=== PATIENT | male | born 1965 | race Caucasian/White ===

== ENCOUNTER 2018-10-04 23:33 | Emergency (ER) | payer MEDICAID, SELFPAY ==
[2018-10-04 23:34] VITALS: BP 162/87; PULSE 93; RESP 16; TEMP 36.1; O2SAT 96; BMI 44.3
--- NOTE | 2018-10-05 00:24 | ED.VISSUMM ---
- ER Visit Summary Date of Service: 10/05/18 Chief Complaint: rash History of Present Illness: The patient is a 52 M for rash for one month all over body. Patient states he has the rash on his arms, legs, back, chest and abdomen that itches and mahoney. He has been using an mpeb-bmd-khpbjju ointment on the rash that helps when the rash is moist, but symptoms returned when the rash dries up. 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 He denies any recent travel or change in hygiene products. He denies any fever, chest pain, shortness of breath, abdominal pain, nausea or vomiting, eye pain, mouth ulcerations, dysuria or penile discharge. Patient does not have a primary care doctor and has not had the rash evaluated before. Physical Examination: Vital signs: afebrile, hemodynamically stable, no hypoxia on room air General: well nourished, well developed, in no distress Skin: warm, dry, no pallor, diffuse erythematous plaques of various sizes with dry scaling scattered on the extremities, torso and back. Most prominent are on the legs, with lesions around the pattern of the superior sock margin, and prominent on extensor surfaces. No palmar or sole involvement. Rash has a psoriatic appearance HEENT: normocephalic and atraumatic; PERRL, EOMI, moist mucous membranes without lesions his Cardiovascular: regular rate and rhythm without murmurs, no peripheral edema, 2+ pulses all distal extremities Respiratory: No increased work of breathing, lungs are clear to auscultation bilaterally, no rales, rhonchi or wheezing Abdominal: Abdomen is soft, nontender with normoactive bowel sounds, no guarding or rebound, no masses MSK: Moves all extremities, no deformities, normal strength Neuro: Awake and alert, oriented ?4. No facial droop, sensation and motor function intact and symmetric Test Results: [] Emergency Department Course and Treatment: Patient's rash appears consistent with psoriasis. The pattern following the upper borders of his socks has a psoriatic appearance, but the pattern related to his socks also makes a contact or irritant dermatitis on the differential. Patient was started on prednisone taper and is to use antihistamines to see if that helps with the pruritus. Patient was given referral to dermatology. He was instructed to keep the lesions moist with moisturizer or Vaseline. He has no findings that would be concerning for Colin-Ramin syndrome. patient agreed with this plan and was discharged home. Treatment Plan: [] Disposition: [] Impression: Psoriatic rash This note was generated with [employer] dictation software. It may contain incorrect words, spelling, and punctuation that were not noted in review of the chart prior to signing ED Disposition - Plan for ED Patient: Disposition: Home or Assisted Living Chief Complaint: Rash Instructions: ED Dermatitis Non Specific Rash, ED Psoriasis Prescriptions: RX: Prednisone 10 mg PO DAILY #63 tab Referrals: Holland Matt MD [CONSULTING PHYSICIAN] - As soon as possible Doctor,Your [STAFF PHYSICIAN] - As soon as possible Additional Instructions: Please follow-up with your family doctor as soon as possible for another evaluation of your rash. 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 You may try Benadryl or another iaar-alm-kwhsaln antihistamine to see if that helps with itching. Use Vaseline on the rash to keep them moist and soothed. Take the prednisone to help with any inflammation. Follow-up with dermatology as soon as possible for further evaluation of your rash. If you have any worsening of your condition or any new concerning symptoms, please return immediately to the emergency department for another evaluation.
--- NOTE | 2018-10-05 00:24 | ED.DEP ---
ED Disposition - Plan for ED Patient: Disposition: Home or Assisted Living Chief Complaint: Rash Instructions: ED Psoriasis, ED Dermatitis Non Specific Rash Prescriptions: Prednisone 10 mg PO DAILY #63 tab Referrals: Doctor,Your [STAFF PHYSICIAN] - As soon as possible Holland Matt MD [CONSULTING PHYSICIAN] - As soon as possible Additional Instructions: Please follow-up with your family doctor as soon as possible for another evaluation of your rash. 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 You may try Benadryl or another zlzg-lbu-ebyjgys antihistamine to see if that helps with itching. Use Vaseline on the rash to keep them moist and soothed. Take the prednisone to help with any inflammation. Follow-up with dermatology as soon as possible for further evaluation of your rash. If you have any worsening of your condition or any new concerning symptoms, please return immediately to the emergency department for another evaluation.
--- NOTE | 2018-10-05 00:27 | DCINST.ED_ITS ---
ED Disposition - Plan for ED Patient: Disposition: Home or Assisted Living Chief Complaint: Rash Instructions: ED Psoriasis, ED Dermatitis Non Specific Rash Prescriptions: Prednisone 10 mg PO DAILY #63 tab Referrals: Doctor,Your [STAFF PHYSICIAN] - As soon as possible Holland Matt MD [CONSULTING PHYSICIAN] - As soon as possible Additional Instructions: Please follow-up with your family doctor as soon as possible for another evaluation of your rash. 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 You may try Benadryl or another shob-ern-vuuuipo antihistamine to see if that helps with itching. Use Vaseline on the rash to keep them moist and soothed. Take the prednisone to help with any inflammation. Follow-up with dermatology as soon as possible for further evaluation of your rash. If you have any worsening of your condition or any new concerning symptoms, please return immediately to the emergency department for another evaluation.
[2018-10-05] MEDS: predniSONE 20 MG Tablet 60 MG PO (00:50)
[2018-10-05 00:54] VITALS: PULSE 92; RESP 16; O2SAT 99
== END 2018-10-05 00:54 | disposition home or self-care (01) ==
PROVIDERS: Emergency Provider Emergency Medicine
DX: L40.9 Psoriasis, unspecified (principal); E66.9 Obesity, unspecified; Z79.899 Other long term (current) drug therapy
CPT/HCPCS: 99283

== ENCOUNTER 2018-10-16 20:39 | Emergency (ER) | payer MEDICAID, SELFPAY ==
[2018-10-16 20:39] VITALS: BP 138/94; PULSE 98; RESP 18; TEMP 36.2; O2SAT 96; BMI 46.4
--- NOTE | 2018-10-16 20:52 | ED.VISSUMM ---
- ER Visit Summary Date of Service: 10/16/18 Chief Complaint: Pruritic red scaly rash History of Present Illness: The patient is a 52 M who presents because the rash has not gotten better. He states it is gotten worse. He was seen in the emergency department October 05 and diagnosed with psoriatic rash. He denies myalgias arthralgias. No joint swelling. He denies fever chills. He denies cardiac respiratory symptoms. Denies GI symptoms. Physical Examination: Vital signs noted and blood pressure is elevated 138/94. BMI is 46.5. HEENT is unremarkable. Heart is regular. Lungs clear auscultation. Abdomen soft nontender. Patient has a erythematous scaly plaque like rash that is extensive. Test Results: None Emergency Department Course and Treatment: Patient was informed he has psoriasis and it is quite extensive. 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 He states he was told that they do not take his insurance. Since this is not an emergency he was instructed to call his insurance carrier to help find him a fulling mill operator that is on his plan. He was told medications that he would need to be placed on ED monitor closely and not appropriate to be started from the emergency department Treatment Plan: Contact insurance carrier for dermatology referral Disposition: Discharged home Impression: Psoriasis This note was generated with [employer] dictation software. It may contain incorrect words, spelling, and punctuation that were not noted in review of the chart prior to signing ED Disposition - Plan for ED Patient: Disposition: Home or Assisted Living Chief Complaint: Rash Instructions: What is Psoriasis?, ED Psoriasis Referrals: Care Physician,No Primary [Primary Care Provider] - Additional Instructions: You need to contact your insurance carrier and ask for them to help find a fulling mill operator that will see you and is on your insurance plan since you have been unsuccessful without their assistance.
--- NOTE | 2018-10-16 20:55 | ED.DCSUM_ITS ---
- ER Visit Summary Date of Service: 10/16/18 Chief Complaint: Pruritic red scaly rash History of Present Illness: The patient is a 52 M who presents because the rash has not gotten better. He states it is gotten worse. He was seen in the emergency department October 05 and diagnosed with psoriatic rash. He denies myalgias arthralgias. No joint swelling. He denies fever chills. He denies cardiac respiratory symptoms. Denies GI symptoms. Physical Examination: Vital signs noted and blood pressure is elevated 138/94. BMI is 46.5. HEENT is unremarkable. Heart is regular. Lungs clear auscultation. Abdomen soft nontender. Patient has a erythematous scaly plaque like rash that is extensive. Test Results: None Emergency Department Course and Treatment: Patient was informed he has psoriasis and it is quite extensive. He needs to follow-up with wing commander. He states he was told that they do not take his insurance. Since this is not an emergency he was instructed to call his insurance carrier to help find him a wing commander that is on his plan. He was told medications that he would need to be placed on ED monitor closely and not appropriate to be started from the emergency department Treatment Plan: Contact insurance carrier for dermatology referral Disposition: Discharged home Impression: Psoriasis This note was generated with [employer] dictation software. It may contain incorrect words, spelling, and punctuation that were not noted in review of the chart prior to signing ED Disposition - Plan for ED Patient: Disposition: Home or Assisted Living Chief Complaint: Rash Instructions: What is Psoriasis?, ED Psoriasis Referrals: Care Physician,No Primary [Primary Care Provider] - Additional Instructions: You need to contact your insurance carrier and ask for them to help find a wing commander that will see you and is on your insurance plan since you have been unsuccessful without their assistance.
--- NOTE | 2018-10-16 20:55 | ED.VISSUMM ---
- ER Visit Summary Date of Service: 10/16/18 Chief Complaint: [] History of Present Illness: The patient is a 52 M [] Physical Examination: [] Test Results: [] Emergency Department Course and Treatment: [] Treatment Plan: [] Disposition: [] Impression: [] This note was generated with [employer] dictation software. It may contain incorrect words, spelling, and punctuation that were not noted in review of the chart prior to signing ED Disposition - Plan for ED Patient: Disposition: Home or Assisted Living Chief Complaint: Rash Instructions: What is Psoriasis?, ED Psoriasis Prescriptions: Hydroxyzine HCl 25 mg PO Q8H PRN PRN #60 tab PRN Reason: Itching Referrals: Care Physician,No Primary [Primary Care Provider] - Additional Instructions: You need to contact your insurance carrier and ask for them to help find a interlocking and signal mechanic that will see you and is on your insurance plan since you have been unsuccessful without their assistance.
[2018-10-16 21:06] VITALS: RESP 18
== END 2018-10-16 21:09 | disposition home or self-care (01) ==
LOC: ED 20:59
PROVIDERS: Emergency Provider Emergency Medicine
DX: L40.9 Psoriasis, unspecified (principal); E66.9 Obesity, unspecified; Z68.42 Body mass index [BMI] 45.0-49.9, adult
CPT/HCPCS: 99282

== ENCOUNTER 2019-01-10 17:40 | Observation (INO) | payer MEDICAID, SELFPAY ==
[2019-01-10] VITALS (7 sets, daily range): BP systolic 132–168; BP diastolic 88–93; PULSE 84–105; RESP 17–20; TEMP 36.6–36.8; O2SAT 92–96; BMI 46.0; BMI 46.1; BMI 46.2
--- NOTE | 2019-01-10 17:55 | RAD_ITS ---
STUDY: X-RAY CHEST REASON FOR EXAM: Male, 53 years old. Cough TECHNIQUE: Single frontal view COMPARISON: None. FINDINGS: The lungs are expanded. Mild right basilar interstitial prominence medially. Normal size heart. Normal mediastinum and mo. Normal visualized pulmonary arteries. Normal visualized aortic arch and descending thoracic aorta. Degenerative changes of the thoracic spine. Normal visualized ribs, clavicles, and shoulders. There is no demonstrated abnormality of the visualized soft tissue structures of the upper abdomen. RAD/Chest 1 View (Portable) IMPRESSION: Mild right basilar medial interstitial prominence. Electronically Signed: Haroldo Aragon DO at 18:31 EST Tel [phone], Service support ,
--- NOTE | 2019-01-10 17:59 | ED.DCSUM_ITS ---
- ER Visit Summary Date of Service: 01/10/19 Chief Complaint: Flulike symptoms History of Present Illness: The patient is a 53 M presenting with cough, body aches, shortness of breath. Patient states this started 4 days ago. He went to [facility]. He was diagnosed with influenza A. He states he was started on steroids. He has finished course of steroids. He complains of diffuse myalgias, shortness of breath, cough. He has had subjective fevers. He has chest pain only when he coughs. He went to his primary care physician today who sent him to the ED due to low oxygen saturation in the office. Physical Examination: Vitals are stable. Patient is afebrile. Pulse ox 95% on room air. Alert no acute distress. HEENT exam is unremarkable. Neck is supple. Lungs are wheezing bilaterally. Heart is regular rate and rhythm. Abdomen is soft nontender nondistended. Extremities are unremarkable. Skin is warm and dry. No focal neurologic deficit. Remainder of exam is unremarkable. Emergency Department Course and Treatment: Patient is given albuterol, Atrovent aerosols. He was given IV fluids, Toradol. Ambulatory pulse ox is 86% on room air. Chest x-ray shows mild right basilar medial interstitial prominence. CBC, chemistries unremarkable. Troponin 0.023. Discussed with the hospitalist for admission. Disposition: Admission Impression: Influenza, hypoxia This note was generated with [employer] dictation software. It may contain incorrect words, spelling, and punctuation that were not noted in review of the chart prior to signing ED Disposition - Plan for ED Patient: Referrals: Care Physician,No Primary [Primary Care Provider] -
[2019-01-10] MEDS: Albuterol 2.5 MG/3 ML VIAL.NEB. INHALATION ×2 (18:11→18:52)
[2019-01-10] MEDS: Ipratropium/Albuterol Sulfate 3 ML AMPUL.NEB INHALATION (18:11)
[2019-01-10] MEDS: 0.9% Normal Saline 1,000 ML 1000 ML IV (18:30)
[2019-01-10] MEDS: Ketorolac 30 MG/ML Syringe IV (18:30)
[2019-01-10 19:26] LABS: Absolute Lymphocyte Count 2.92 X10^3/ul (0.83-4.51); Absolute Neutrophil Count 2.7 X10^3/uL (2.0-7.7); Basophil# 0.01 X10^3/uL; Basophil% 0.2 % (0-1); Eosinophil# 0.01 X10^3/uL; Eosinophils% 0.2 % (0-5); Hemoglobin 14.8 g/dl (13.0-16.5); Lymphocyte # 2.92 X10^3/ul (4.0); Mean Corp Hgb Conc 32.2 g/gl (32-36); Mean Corpuscular Hgb 30.4 pg (27.0-32.0); Mean Corpuscular Volume 94.5 fL (80-94); Mean Platelet Vol. 11.2 fl (6.2-12.0); Monocyte# 0.97 X10^3/uL; Monocyte% 14.6 % (0-10); Neutrophil # 2.73 X10^3/uL (2.7-7.7); POSITIVE COUNT NO; POSITIVE DIFFERENTIAL NO; POSITIVE MORPHOLOGY NO; Platelet Count 160 K/mm3 (150-450); RBC Distribution Width CV 13.6 % (11.6-14.6); RBC Distribution Width SD 46.8 fl (35.1-43.9); Red Blood Count 4.87 M/mm3 (4.6-6.2); White Blood Count 6.6 K/mm3 (4.4-11.0)
[2019-01-10 19:38] LABS: Anion Gap 9 (5-15); BUN 19 mg/dL (7-18); BUN/Creat Ratio 16.5 RATIO (10-20); Calcium,Total 8.1 mg/dL (8.5-10.1); Chloride 105 mmol/L (98-107); Creatinine, Serum 1.15 mg/dL (0.70-1.30); EST Glomerular Filtration Rate 70 mL/min (>60); Est Glom Filt Rate - Afr Amer 85 mL/min (>60); Estimated Creatinine Clearance 73.43 ml/min; Glucose 106 mg/dL (74-106); Potassium 3.5 mmol/L (3.5-5.1); Sodium Level 144 mmol/L (136-145)
--- NOTE | 2019-01-10 20:45 | PCM.HP.STD ---
Problem List (1) COPD with acute exacerbation Status: Acute (2) Hypertensive urgency Status: Acute (3) Influenza A Status: Acute History of Present Illness Date of Admission: 01/10/19 Chief Complaint: shortness of breath. The patient is a 53 year old M presents with increasing dyspnea on exertion. Patient has chronic dyspnea on exertion but has been worse over the past several days. Patient was seen at an outside hospital and was diagnosed with influenza A as well as exacerbation of COPD. Received albuterol as well as prednisone. Patient presented to his doctor's office for follow-up and was noted to be hypoxic in the 80s. Patient was directed to the emergency room at [facility] for further evaluation. Patient presented at 86% and was put on oxygen. He received albuterol, Toradol and saline. He states that he is breathing better after the breathing treatments. Patient states that he was diagnosed with COPD approximately 26 years ago and he stopped smoking at that time. Has not followed up with pulmonology. [] Past Medical History Medical History: Medical History (Last Updated 01/10/19 @ 20:47 by Medardo Talbert DO) COPD (chronic obstructive pulmonary disease) J44.9 HTN (hypertension) I10 Allergies Penicillins Allergy (Verified 10/16/18 20:39) Unknown Home Medications: Ambulatory Orders Medication Instructions Recorded Acetaminophen [Tylenol Extra 1,000 mg PO PRN PRN 01/10/19 Strength] Albuterol Inhaler [Ventolin Hfa 2 puff INHALATION Q4H PRN PRN 01/10/19 (SP)] Lisinopril/Hydrochlorothiazide 1 each PO DAILY 01/10/19 [Lisinopril-Hctz 10-12.5 mg Tab] Psychiatric History: No pertinent psych hx Smoking Status: Former smoker Tobacco Use: Non-smoker Alcohol: Rare Drugs: None - *Family History Maternal Family History: Family History (Last Updated 01/10/19 @ 20:48 by Medardo Talbert DO) Other COPD (chronic obstructive pulmonary disease) Review of Systems Constitutional: Denies: Anorexia, Chills, Fever Eyes: Denies: Blurred vision, Double vision HEENT: Denies: Head Aches, Sinus Congestion, Sinus Drainage Cardiovascular: Reports: Chest Pain - with cough. Denies: Palpitations Respiratory: Reports: Cough, Shortness of Breath, Shortness of breath upon exertion, Sputum production - cream colored. Gastrointestinal: Denies: Abdominal Pain, Nausea, Vomiting Genitourinary: Denies: Dysuria Musculoskeletal: Denies: Joint Pain, Joint Tenderness Skin: Denies: Dryness, Jaundice Neurological: Denies: Numbness, Tingling, Focal weakness Psychiatric: Denies: Anxiety, Depression Endocrine: Denies: Change in Body Habitus, Heat/ Cold Intolerance Hematologic/ Lymphatic: Denies: Easy Bruising, Easy Bleeding, Hx of blood clot Comment: A 10 point review of systems were negative except as mentioned in the history of present illness and the other review of systems. VTE Information - Inpt Only VTE Present on Admission: No VTE Mechan Device Prophylaxis: None VTE Pharm Prophylaxis ordered?: Yes Patient Problems: Active and Suspected Problems (Last Updated 01/10/19 @ 20:47 by Medardo Talbert DO) COPD with acute exacerbation (Acute) Hypertensive urgency (Acute) Influenza A (Acute) - Physical Exam General: Alert, Cooperative, No apparent distress HEENT: Atraumatic, Normocephalic Oral: Moist Mucosa, No Gingival or Mucosal Lesions/ Ulcerations Neck: No Nodes, Thyroid Normal Size and Texture Lungs: No rhonchi, No wheeze, Diminished Cardiovascular: Regular rate, Regular Rhythm, Normal S1, Normal S2 Abdomen: Bowel Sounds Present, Soft, Non Tender, Non-Distended, No Hepato-splenomegaly, Obese Extremities: No edema, No Calf Tenderness Skin: No rashes, No breakdown Musculoskeletal: No Tenderness to Palpation of Joints or Extremities, No Muscle Wasting Neurological: Coordination normal, Gait narrow based and stable Psych/Mental Status: Normal Affect, Appropriate Vital Signs Temp Pulse Resp BP Pulse Ox 36.7 C 103 H 20 H 168/93 H 93 01/10/19 19:09 01/10/19 19:09 01/10/19 19:09 01/10/19 19:09 01/10/19 19:09 Oxygen Flow Rate (L/min) 2 Oxygen Delivery Method Nasal Cannula Weight: 141.521 kg Body Mass Index (BMI) 46.0 Laboratory Tests Past 24 Hrs 01/10/19 01/10/19 19:15 19:15 WBC 6.6 RBC 4.87 Hgb 14.8 Hct 46.0 MCV 94.5 H MCH 30.4 MCHC 32.2 RDW 13.6 RDW Differential 46.8 H Plt Count 160 MPV 11.2 Immature Gran % (Auto) 0.000 Neut % (Auto) 41.0 L Lymph % (Auto) 44.0 H Keith % (Auto) 14.6 H Eos % (Auto) 0.2 Baso % (Auto) 0.2 Absolute Neuts (auto) 2.7 Absolute Lymphs (auto) 2.92 Total Counted Not Reportable Sodium 144 Potassium 3.5 Chloride 105 Carbon Dioxide 30.0 Anion Gap 9 BUN 19 H Creatinine 1.15 Estim Creat Clear Calc 73.43 Est GFR (MDRD) Af Amer 85 Est GFR (MDRD) Non-Af 70 BUN/Creatinine Ratio 16.5 Glucose 106 Calcium 8.1 L Troponin I 0.023 Chest x-ray reviewed and shows no acute process but does show slight flattening of the diaphragms. Assessment/Plan All Active Problems (Last Updated 01/10/19 @ 20:47 by Medardo Talbert DO) COPD with acute exacerbation (Acute) Hypertensive urgency (Acute) Influenza A (Acute) 1. Acute exacerbation of COPD: Patient states that he was diagnosed with COPD proximate 26 years ago. Seems rather young when he was 19 years old. But may be asthma as well. Plan is for steroids and bronchodilators. This may been exacerbated due to the patient's recent influenza diagnosis. Recommend patient follow-up with pulmonology as outpatient. Patient will require an ambulatory pulse ox prior to discharge 2. Hypertensive urgency: Blood pressures in the 190s. Patient will continue with his lisinopril/HCTZ but also have clonidine as needed for systolic blood pressure greater than 180. 3. Influenza A: At outside hospital. Was not started on Tamiflu. Given that it has been greater than 96 hours since the diagnosis, no indication for Tamiflu at this time other than supportive management. 4. DVT prophylaxis with a low back rate heparin Code Visit OBSV E&M: 87082 Initial observation care L3
[2019-01-10] MEDS: 0.9% NaCl Peripheral Flush Adult/Peds IV (22:56)
[2019-01-10] MEDS: guaiFENesin 1,200 MG Tablet 1200 MG PO (22:56)
[2019-01-10] MEDS: 0.9% Normal Saline 1,000 ML 150 ML IV (23:00)
[2019-01-11] VITALS (19 sets, daily range): BP systolic 102–152; BP diastolic 58–85; PULSE 86–104; RESP 16–26; TEMP 36.7–37.2; O2SAT 89–96
[2019-01-11] MEDS: Ipratropium/Albuterol Sulfate 3 ML AMPUL.NEB INHALATION ×7 (00:17→22:55)
[2019-01-11] MEDS: 0.9% NaCl Peripheral Flush Adult/Peds IV ×3 (05:32→21:12)
[2019-01-11 06:44] LABS: Anion Gap 11 (5-15); BUN 18 mg/dL (7-18); BUN/Creat Ratio 18.9 RATIO (10-20); Chloride 106 mmol/L (98-107); Creatinine, Serum 0.95 mg/dL (0.70-1.30); EST Glomerular Filtration Rate 87 mL/min (>60); Est Glom Filt Rate - Afr Amer 106 mL/min (>60); Estimated Creatinine Clearance 88.89 ml/min; Glucose 142 mg/dL (74-106); Sodium Level 141 mmol/L (136-145)
[2019-01-11 07:18] LABS: Absolute Neutrophil Count 2.6 X10^3/uL (2.0-7.7); Basophil# 0.01 X10^3/uL; Basophil% 0.3 % (0-1); Hemoglobin 14.6 g/dl (13.0-16.5); Mean Corp Hgb Conc 33.2 g/gl (32-36); Mean Corpuscular Hgb 31.5 pg (27.0-32.0); Mean Corpuscular Volume 94.8 fL (80-94); Mean Platelet Vol. 11.8 fl (6.2-12.0); Neutrophil # 2.62 X10^3/uL (2.7-7.7); Neutrophil % 78.4 % (47-70); Platelet Count 164 K/mm3 (150-450); RBC Distribution Width CV 13.4 % (11.6-14.6); RBC Distribution Width SD 45.1 fl (35.1-43.9); Red Blood Count 4.64 M/mm3 (4.6-6.2); White Blood Count 3.3 K/mm3 (4.4-11.0)
[2019-01-11 07:29] LABS: Differential Indicated SCAN CRITERIA MET; POSITIVE COUNT NO; POSITIVE DIFFERENTIAL YES; POSITIVE MORPHOLOGY NO
--- NOTE | 2019-01-11 08:24 | PCM.PROGNOTE ---
Patient Problems: Active and Suspected Problems (Last Updated 01/10/19 @ 20:47 by Medardo Talbert DO) COPD with acute exacerbation (Acute) Hypertensive urgency (Acute) Influenza A (Acute) Subjective: The patient is a 53-year-old male with a past medical history of COPD tobacco dependence in remission (quit > 20 years ago) and hypertension who presented to the emergency department at [facility] on 01/10/2019 complaining of shortness of breath with exertion. He had been seen at an outside facility and was diagnosed with influenza A and exacerbation of COPD. He was given albuterol and prednisone and sent home. He had been seen at his primary care physician's office prior to being sent to the emergency room his pulse ox on room air was in the 80s. The pulse ox with ambulation in the emergency room was 86% on room air. Vital signs of presentation to the emergency room were temperature 98.2, pulse rate 97, blood pressure 132/88, respiratory rate 17-20. CBC showed a white blood cell count of 6.6, hemoglobin of 14.8 and platelets of 160,000. BMP showed creatinine of 1.15 with a BUN of 19. Chest x-ray showed interstitial prominence in the right lower lobe medially. On physical examination by the ER physician the patient had bilateral wheezing and he was treated with albuterol and DuoNeb aerosols. At the time he was seen by the hospitalist he had diminished breath sounds but no wheezing, no rales. He was admitted to the hospital and placed on scheduled aerosolized bronchodilators, intravenous steroids and guaifenesin. All events of the past 24 hours been reviewed. Febrile since admission Vital signs are stable Relating in the room and after taking a shower the pulse ox was 90-93% but the patient was tachypneic. He states this is his baseline. He has never had pulmonary function test and does not see a home economist. He quit smoking 25 years ago. Tells me that he gets chest tightness across the anterior chest when he is walking and this is associated with shortness of breath, diaphoresis and sometimes with nausea. He sits down for a few minutes and it goes away. He had a stress test at [facility] in 2014 and this was a chemical nuclear stress test that was negative for ischemia. There is a positive family history of coronary artery disease in his grandparents. Both his parents of cancer. - Physical Exam General: Alert, Oriented x3, Cooperative, No apparent distress - Sitting in a chair, Well developed, Well nourished HEENT: Atraumatic, PERRLA, EOMI, Normocephalic Oral: Moist Mucosa Neck: Supple, No JVD, Trachea Midline Lungs: No rhonchi, No wheeze, No rales, Diminished - Very Diminished throughout. Not tachypneic at rest, no conversational dyspnea, no accessory muscle use Cardiovascular: Regular rate, Regular Rhythm, Normal S1, Normal S2, No murmurs, No rub noted, No Gallop Abdomen: Bowel Sounds Present, Soft, Non Tender, Non-Distended, Obese Extremities: No clubbing, No edema Skin: No rashes Neurological: Cranial nerves II-XII grossly intact, Neuro grossly intact Vital Signs Temp Pulse Resp BP Pulse Ox 98.8 F 88 18 152/85 H 94 01/11/19 04:10 01/11/19 06:50 01/11/19 06:50 01/11/19 04:10 01/11/19 06:50 Oxygen Flow Rate (L/min) 1 Oxygen Delivery Method Nasal Cannula Weight: 312 lb 9 oz Body Mass Index (BMI) 46.1 Intake and Output for Last 24 Hours 01/09/19 01/10/19 01/11/19 23:59 23:59 23:59 Intake Total 1472 / 1472 Output Total 475 / 475 Balance 997 / 997 Laboratory Tests Past 24 Hrs 01/10/19 01/10/19 01/11/19 19:15 19:15 05:50 WBC 6.6 RBC 4.87 Hgb 14.8 Hct 46.0 MCV 94.5 H MCH 30.4 MCHC 32.2 RDW 13.6 RDW Differential 46.8 H Plt Count 160 MPV 11.2 Immature Gran % (Auto) 0.000 Neut % (Auto) 41.0 L Lymph % (Auto) 44.0 H [place] % (Auto) 14.6 H Eos % (Auto) 0.2 Baso % (Auto) 0.2 Absolute Neuts (auto) 2.7 Absolute Lymphs (auto) 2.92 Total Counted Not Reportable Diff Path Review Sodium 144 141 Potassium 3.5 4.0 Chloride 105 106 Carbon Dioxide 30.0 24.0 Anion Gap 9 11 BUN 19 H 18 Creatinine 1.15 0.95 Estim Creat Clear Calc 73.43 88.89 Est GFR (MDRD) Af Amer 85 106 Est GFR (MDRD) Non-Af 70 87 BUN/Creatinine Ratio 16.5 18.9 Glucose 106 142 H Calcium 8.1 L 8.0 L Troponin I 0.023 01/11/19 05:50 WBC 3.3 L RBC 4.64 Hgb 14.6 Hct 44.0 MCV 94.8 H MCH 31.5 MCHC 33.2 RDW 13.4 RDW Differential 45.1 H Plt Count 164 MPV 11.8 Immature Gran % (Auto) 0.300 Neut % (Auto) 78.4 H Lymph % (Auto) 15.0 L [place] % (Auto) 6.0 Eos % (Auto) 0.0 Baso % (Auto) 0.3 Absolute Neuts (auto) 2.6 Absolute Lymphs (auto) 0.50 L Total Counted Not Reportable Diff Path Review May foll Sodium Potassium Chloride Carbon Dioxide Anion Gap BUN Creatinine Estim Creat Clear Calc Est GFR (MDRD) Af Amer Est GFR (MDRD) Non-Af BUN/Creatinine Ratio Glucose Calcium Troponin I Medical Necessity - Tobacco Use Smoking Status: Former smoker Tobacco Use: Non-smoker Assessment/Plan All Active Problems (Last Updated 01/10/19 @ 20:47 by Medardo Talbert DO) COPD with acute exacerbation (Acute) Hypertensive urgency (Acute) Influenza A (Acute) impressions 1. Acute exacerbation of COPD secondary to recently diagnosed influenza A 2. Hypertensive urgency-improved 3. morbid obesity 4. very remote smoking hx. 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 Sleep disordered breathing with loud snoring, daytime somnolence, restless leg, forgetfulness 6. Leukopenia-suspect secondary to influenza Transition to prednisone in the a.m. Chemical nuclear stress test in the a.m. Ambulatory pulse ox in the a.m. Possible discharge with a nebulizer and aerosol solution versus inhaler therapy Follow-up with pulmonary in 2 weeks to schedule PFTs and an outpatient sleep study Code Visit OBSV E&M: 16783 Subsequent observation care L2
--- NOTE | 2019-01-11 08:30 | RAD_ITS ---
STUDY: X-RAY CHEST REASON FOR EXAM: Male, 53 years old. Shortness of breath. Questionable right lower lobe infiltrate. TECHNIQUE: PA and lateral views of the chest. COMPARISON: Comparison is made with prior study dated January 10, 2019. FINDINGS: Minimal increased markings at the left lung base suggestive of left basilar atelectasis. The right lung is clear. There is no demonstrated pleural abnormality. Normal size heart. Normal mediastinum and mo. Normal visualized pulmonary arteries. Normal visualized aortic arch and descending thoracic aorta. There are diffuse degenerative changes of the visualized thoracic spine. Normal visualized ribs, clavicles, and shoulders. There is no demonstrated abnormality of the visualized soft tissue structures of the upper abdomen. RAD/Chest PA and Lateral IMPRESSION: Findings suggest some mild left basilar atelectasis. The right lung is clear. Electronically Signed: Willam Vu, at 13:13 EST , Service support ,
[2019-01-11] MEDS: Lisinopril 10 MG Tablet PO (09:45)
[2019-01-11] MEDS: guaiFENesin 1,200 MG Tablet 1200 MG PO ×2 (09:45→21:11)
[2019-01-11] MEDS: hydroCHLOROthiazide 12.5mg 12.5 MG PO (09:45)
--- NOTE | 2019-01-11 11:30 | CASEMGMT ---
RN CATHIE Face to Face with patient for initial transition planning/care coordination assessment. RN CM introduced self and role at [facility]. Patient sitting in chair, alert and oriented. Patient willing to participate in assessment and is able to answer all questions appropriately. Care providers, pharmacy, and demographics verified. Patient wishes to discharge home, denies need for home health at this time. Patient states he has no further needs or concerns at this time. CM to follow for discharge planning needs that may arise. PCP: Mora Specialists: None Preferred [facility]acy[facility] Insurance: [employer] Prescription Benefit: Yes Living Will/HPOA: None LNOK: daughter Living Arrangements: Patient lives with in 2 floor apartment with 25 steps with railing to enter the apartment. Patient independent at home. Transportation: self/family DME/HHC: Patient denies any DME at home. May benefit from nebulizer and agreeable for [employer] for DME supplies. Disposition Plan: Patient to discharge home with family support and follow-up plans in place. Svitlana SMILEY, RN, CM
[2019-01-11] MEDS: Acetaminophen 325 MG Tablet 650 MG PO (12:59)
[2019-01-11 13:17] LABS: Pathologist Review Reviewed
[2019-01-12] VITALS (10 sets, daily range): BP systolic 126–158; BP diastolic 66–82; PULSE 72–88; RESP 18–20; TEMP 36.7–37.2; O2SAT 91–97
[2019-01-12] MEDS: Ipratropium/Albuterol Sulfate 3 ML AMPUL.NEB INHALATION ×4 (03:51→14:54)
--- NOTE | 2019-01-12 06:00 | EKG12_ITS ---
Test Reason : AM EKG Blood Pressure : / mmHG Vent. Rate : 082 BPM Atrial Rate : 082 BPM P-R Int : 126 ms QRS Dur : 090 ms QT Int : 376 ms P-R-T Axes : 048 042 070 degrees QTc Int : 439 ms Sinus rhythm with marked sinus arrhythmia Otherwise normal ECG When compared with ECG of 25-JUN-2012 10:46, No significant change was found Confirmed by BRYANT BANUELOS, EVELIO ([id number]), loan expeditor MINERVA DANG ([id number]) on 01/15/2019 1:19:05 PM Referred By: SUGAR Confirmed By:EVELIO HURTADO MD
[2019-01-12 06:30] LABS: International Normalized Ratio 1.1; Prothrombin Time (Protime)PT. 13.6 SECONDS (11.7-14.9)
[2019-01-12 06:31] LABS: Partial Thromboplast Time 29.2 Seconds (24.1-36.2)
[2019-01-12 06:32] LABS: Absolute Lymphocyte Count 1.13 X10^3/ul (0.83-4.51); Absolute Neutrophil Count 4.9 X10^3/uL (2.0-7.7); Basophil# 0.03 X10^3/uL; Basophil% 0.4 % (0-1); Hematocrit 44.1 % (40-54); Hemoglobin 14.4 g/dl (13.0-16.5); Lymphocyte # 1.13 X10^3/ul (4.0); Lymphocyte % 16.7 % (19-41); Mean Corp Hgb Conc 32.7 g/gl (32-36); Mean Corpuscular Hgb 30.5 pg (27.0-32.0); Mean Corpuscular Volume 93.4 fL (80-94); Mean Platelet Vol. 11.7 fl (6.2-12.0); Monocyte% 10.3 % (0-10); Neutrophil # 4.91 X10^3/uL (2.7-7.7); Neutrophil % 72.5 % (47-70); Platelet Count 198 K/mm3 (150-450); RBC Distribution Width CV 13.4 % (11.6-14.6); RBC Distribution Width SD 45.9 fl (35.1-43.9); Red Blood Count 4.72 M/mm3 (4.6-6.2); White Blood Count 6.8 K/mm3 (4.4-11.0)
[2019-01-12 06:44] LABS: POSITIVE COUNT NO; POSITIVE DIFFERENTIAL NO; POSITIVE MORPHOLOGY NO
[2019-01-12 06:50] LABS: Anion Gap 8 (5-15); BUN 17 mg/dL (7-18); BUN/Creat Ratio 17.3 RATIO (10-20); Calcium,Total 8.3 mg/dL (8.5-10.1); Chloride 105 mmol/L (98-107); Cholesterol 120 mg/dL (200); Creatinine, Serum 0.98 mg/dL (0.70-1.30); EST Glomerular Filtration Rate 84 mL/min (>60); Est Glom Filt Rate - Afr Amer 102 mL/min (>60); Estimated Creatinine Clearance 86.17 ml/min; Glucose 135 mg/dL (74-106); High Density Lipoprotein 41 mg/dL; Potassium 3.9 mmol/L (3.5-5.1); Sodium Level 139 mmol/L (136-145); Triglycerides 80 mg/dL; Very Low Density Lipoprotein 16 mg/dL (5-40)
[2019-01-12] MEDS: Lisinopril 10 MG Tablet PO (07:27)
[2019-01-12] MEDS: predniSONE 20 MG Tablet 40 MG PO (09:34)
[2019-01-12] MEDS: guaiFENesin 1,200 MG Tablet 1200 MG PO (09:40)
[2019-01-12] MEDS: Acetaminophen 325 MG Tablet 650 MG PO (09:40)
[2019-01-12] MEDS: hydroCHLOROthiazide 12.5mg 12.5 MG PO (09:40)
--- NOTE | 2019-01-12 09:52 | STRESSREP_ITS ---
Stress Test Report Pharmacologic myocardial perfusion stress test. 53-year-old man with a history of chest pain. Stress protocol: Resting EKG demonstrates normal sinus rhythm with a rate of 78 bpm normal intervals are noted resting blood pressure 148/78 mmHg. 0.4 mg of regadenoson was infused per usual protocol followed by rapid intravenous saline flush injection continuous EKG monitoring was performed. The maximum heart rate attained was 110 bpm which was 66% of maximum predicted heart rate the maximum workload was 1 metabolic equivalent. At rest there were no ST or T wave changes noted suggest abnormal flow reserve at peak infusion nonspecific ST-T wave changes were noted with normally the criteria for ischemia. The resting blood pressure 148/78 final blood pressure 152/78. Myocardial perfusion protocol. 15.0 mCi of technetium 99m sestamibi was injected at rest. 0.4 mg of regadenoson was infused per usual protocol peak infusion 45.0 mCi of technetium 99m sestamibi was injected stress images were obtained stress and rest images were reconstructed and compared in the short axis vertical long horizontal long axis. Gated images were also obtained per Perfusion SPECT analysis: Review of the stress images demonstrate normal uptake of tracer noted in all areas of myocardium on the stress and rest images to a similar extent. There a re no areas of reversibility or reduction of perfusion noted to suggest ischemia. The gated ejection fraction is noted to be 52%. Conclusion: Normal pharmacologic myocardial perfusion stress test. Preserved ejection fraction
--- NOTE | 2019-01-12 14:13 | DCINST_ITS ---
- Discharge Diagnoses Current Active Problems: Current Active and Chronic Problems (Last Updated 01/10/19 @ 20:47 by Medardo Talbert DO) COPD with acute exacerbation (Acute) Hypertensive urgency (Acute) Influenza A (Acute) You will use the following diet at home:: No restrictions, Other - It would really help your breathing to lose some weight. Try and stick to 2000 to 2200 calories a day. Your food should be the consistency of: Regular Your liquids should be the consistency of: Regular/Thin Discharge Activity: - - Avoid exposure to any strong smells such as bleach, cleaning products, strong colognes or perfumes, paint fumes and smoke of any kind. Avoid sudden exposure to cold air because this can cause bronchospasm. You may want to cover your mouth when you go outside in the winter. Avoid exposure to anyone who is sick with a cough or sore throat. Return to work on:: 01/21/19 Call your doctor if you observe: Fever of 101 or Higher, Shortness of breath, Dizziness, Fainting spells, Chest pain Instructions: What Are Snoring and Sleep Apnea?, Visiting a Sleep Clinic Additional Instructions: 1. I recommend you stay in the house and get a lot of rest over the next 5-7 days. When you do go back to work always cover your mouth when working around strong cleaning products. 2. You need to get a Flu shot every year since you have chronic lung disease. You should also get a pneumovac shot if you have not had one. 3. You can call the pulmonary office on Monday and ask to schedule an appt for 2 weeks with Ariane so that you can get scheduled for pulmonary function tests and a sleep study. 4. You need to find a primary care doctor. Your blood pressure was way to high when you came to the hospital and we increased your blood pressure pill to one tab twice a day. You should have the BP rechecked in 10-14 days Allergies/Adverse Reactions: Allergies Penicillins Allergy (Verified 10/16/18 20:39) Unknown Medications to take at Discharge Acetaminophen [Tylenol Extra Strength] 1,000 mg PO PRN PRN 01/10/19 Albuterol Inhaler [Ventolin Hfa] 2 puff INHALATION Q4H PRN PRN 01/10/19 Budesonide/Formoterol Fumarate [Symbicort 160-4.5 Mcg Inhaler] 10.2 gm IH BID #1 hfa.aer.ad 01/12/19 Guaifenesin [Mucinex] 1,200 mg PO BID #20 tablet 01/12/19 Lisinopril/Hydrochlorothiazide [Lisinopril-Hctz 10-12.5 mg Tab] 1 each PO BID #60 tablet 01/12/19 The following prescriptions were given: Budesonide/Formoterol Fumarate [Symbicort 160-4.5 Mcg Inhaler] 10.2 gm IH BID #1 hfa.aer.ad Guaifenesin [Mucinex] 1,200 mg PO BID #20 tablet Lisinopril/Hydrochlorothiazide [Lisinopril-Hctz 10-12.5 mg Tab] 1 each PO BID #60 tablet Primary Care Physician: Care Physician,No Primary [Primary Care Provider] - Test Results: Test results from this visit will be discussed in further detail at your follow- up appointment, if applicable. Please Follow Up With: Mikey Bernabe MD When: Ariane in 2 weeks to schedule PFT's and a sleep study Proposed Discharge Date: 01/12/19
--- NOTE | 2019-01-12 14:18 | DS.PCM_ITS ---
Discharge Date and Diagnosis Date of Admission: 01/10/19 Date of Discharge: 01/12/19 - Primary Discharge Diagnosis Active and Suspected Problems (Last Updated 01/10/19 @ 20:47 by Medardo Talbert DO) COPD with acute exacerbation (Acute) Hypertensive urgency (Acute) Influenza A (Acute) - Secondary Discharge Diagnosis COPD morbid obesity Sleep disordered breathing-suspect [facility] Hospital Course and Treatment Imaging Results: 01/12/19 05:55 Nuclear Stress Test - Chemical [NM] AM (NON MEDS) Clinical Impression(s) from Imaging Studies Chest X-Ray 01/10/19 17:55 IMPRESSION: Mild right basilar medial interstitial prominence. Electronically Signed: Haroldo Aragon DO at 18:31 EST Tel [phone], Service support , Chest X-Ray 01/11/19 08:30 IMPRESSION: Findings suggest some mild left basilar atelectasis. The right lung is clear. Electronically Signed: Willam Vu, at 13:13 EST , Service support , Laboratory Results - last 24 hr 01/12/19 01/12/19 01/12/19 05:45 05:45 05:45 WBC 6.8 RBC 4.72 Hgb 14.4 Hct 44.1 MCV 93.4 MCH 30.5 MCHC 32.7 RDW 13.4 RDW Differential 45.9 H Plt Count 198 MPV 11.7 Immature Gran % (Auto) 0.100 Neut % (Auto) 72.5 H Lymph % (Auto) 16.7 L [place] % (Auto) 10.3 H Eos % (Auto) 0.0 Baso % (Auto) 0.4 Absolute Neuts (auto) 4.9 Absolute Lymphs (auto) 1.13 Total Counted Not Reportable PT 13.6 INR 1.1 APTT 29.2 Sodium 139 Potassium 3.9 Chloride 105 Carbon Dioxide 26.0 Anion Gap 8 BUN 17 Creatinine 0.98 Estim Creat Clear Calc 86.17 Est GFR (MDRD) Af Amer 102 Est GFR (MDRD) Non-Af 84 BUN/Creatinine Ratio 17.3 Glucose 135 H Calcium 8.3 L Triglycerides 80 Cholesterol 120 LDL Cholesterol 63 VLDL Cholesterol 16 HDL Cholesterol 41 None Operations: None Procedures: Stress test - Normal pharmacologic myocardial perfusion stress test with preserved ejection fraction, noted to be 52%. Summary of Care Provided: The patient is a 53-year-old male with a past medical history of COPD, tobacco dependence in remission (quit > 20 years ago), morbid obesity and hypertension who presented to the emergency department at [facility] on 01/10/2019 complaining of shortness of breath with exertion. He had been seen at an outside facility and was diagnosed with influenza A and exacerbation of COPD. He was given albuterol and prednisone and sent home. He was then seen at his primary care physician's office and was sent to the emergency room because the pulse ox on room air was in the 80s. The pulse ox with ambulation in the emergency room was 86% on room air. Vital signs at presentation to the emergency room were temperature 98.2, pulse rate 97, blood pressure 132/88, respiratory rate 17-20. CBC showed a white blood cell count of 6.6, hemoglobin of 14.8 and platelets of 160,000. BMP showed creatinine of 1.15 with a BUN of 19. Chest x-ray showed interstitial prominence in the right lower lobe medially. On physical examination by the ER physician the patient had bilateral wheezing and he was treated with albuterol and DuoNeb aerosols. At the time he was seen by the hospitalist he had diminished breath sounds but no wheezing and no rales. He was admitted to the hospital and placed on scheduled aerosolized bronchodilators, intravenous steroids and guaifenesin. He was not given Tamiflu because his symptoms had been present for at least 3-4 days. He later complained to me that he routinely gets short of breath with exertion and this is often associated with chest tightness, diaphoresis and nausea. His last stress test was in 2013. The wheezing resolved but, the patient had markedly diminished breath sounds throughout. I suspect he has significant COPD even though he quit smoking greater than 20 years ago. 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 He had a pharmacologic nuclear stress test on 01/12/2019 that was negative for ischemia and had an ejection fraction of 52%. He had been transitioned to prednisone and remained stable. His pulse ox with ambulation on room air ranged from 91-93%. He was discharged home and was given a RX for a Symbicort inhaler, Mucinex and lisinopril/hydrochlorothiazide 1012.5. He will increase the lisinopril/hydrochlorothiazide to 1 tablet p.o. twice daily for uncontrolled hypertension. He is to call the pulmonary office on Monday and schedule an appointment with Ariane for 2 weeks to schedule PFTs and a outpatient sleep study. He will follow-up with his primary care doctor in 10-14 days to have his blood pressure rechecked. General: Alert, oriented ?3, cooperative, pleasant and appropriate Neck: Supple, trachea midline, no enlarged cervical nodes, no enlarged supraclavicular nodes Lungs: Severely diminished throughout with no wheezing, rhonchi or rales. No conversational dyspnea, not tachypneic at rest, no accessory muscle use, symmetric chest expansion. Heart: Regular rate and rhythm, normal S1, normal S2, no murmur, no gallop, no rub Abdomen: Soft, NT, ND, bowel sounds present Extremities: No clubbing, no peripheral edema, no cyanosis This note was generated with Xapo dictation software. It may contain incorrect words, spelling, and punctuation that were not noted in checking the note before signing. - Physical Exam Vital Signs Temp Pulse Resp BP Pulse Ox 98.2 F 78 18 158/82 H 91 01/12/19 09:36 01/12/19 10:50 01/12/19 10:50 01/12/19 09:36 01/12/19 13:01 Oxygen Flow Rate (L/min) 1 Oxygen Delivery Method Room Air Weight: 312 lb 9 oz Body Mass Index (BMI) 46.1 Intake and Output for Last 24 Hours 01/10/19 01/11/19 01/12/19 23:59 23:59 23:59 Intake Total 2472 / 2472 940 / 940 Output Total 475 / 475 Balance 1996 940 / 940 Laboratory Tests Past 24 Hrs 01/12/19 01/12/19 01/12/19 05:45 05:45 05:45 WBC 6.8 RBC 4.72 Hgb 14.4 Hct 44.1 MCV 93.4 MCH 30.5 MCHC 32.7 RDW 13.4 RDW Differential 45.9 H Plt Count 198 MPV 11.7 Immature Gran % (Auto) 0.100 Neut % (Auto) 72.5 H Lymph % (Auto) 16.7 L [place] % (Auto) 10.3 H Eos % (Auto) 0.0 Baso % (Auto) 0.4 Absolute Neuts (auto) 4.9 Absolute Lymphs (auto) 1.13 Total Counted Not Reportable PT 13.6 INR 1.1 APTT 29.2 Sodium 139 Potassium 3.9 Chloride 105 Carbon Dioxide 26.0 Anion Gap 8 BUN 17 Creatinine 0.98 Estim Creat Clear Calc 86.17 Est GFR (MDRD) Af Amer 102 Est GFR (MDRD) Non-Af 84 BUN/Creatinine Ratio 17.3 Glucose 135 H Calcium 8.3 L Triglycerides 80 Cholesterol 120 LDL Cholesterol 63 VLDL Cholesterol 16 HDL Cholesterol 41 Discharge Activity: - - Avoid exposure to any strong smells such as bleach, cleaning products, strong colognes or perfumes, paint fumes and smoke of any kind. Avoid sudden exposure to cold air because this can cause bronchospasm. You may want to cover your mouth when you go outside in the winter. Avoid exposure to anyone who is sick with a cough or sore throat. Return to work on:: 01/21/19 Call your doctor if you observe: Fever of 101 or Higher, Shortness of breath, Dizziness, Fainting spells, Chest pain Home Medications: Medications to take at Discharge Acetaminophen [Tylenol Extra Strength] 1,000 mg PO PRN PRN 01/10/19 Albuterol Inhaler [Ventolin Hfa] 2 puff INHALATION Q4H PRN PRN 01/10/19 Budesonide/Formoterol Fumarate [Symbicort 160-4.5 Mcg Inhaler] 10.2 gm IH BID #1 hfa.aer.ad 01/12/19 Guaifenesin [Mucinex] 1,200 mg PO BID #20 tablet 01/12/19 Lisinopril/Hydrochlorothiazide [Lisinopril-Hctz 10-12.5 mg Tab] 1 each PO BID #60 tablet 01/12/19 Prednisone 10 mg PO UD #30 tab 01/12/19 Following Prescrptions Were Given to Patient: Prednisone 10 mg PO UD #30 tab Budesonide/Formoterol Fumarate [Symbicort 160-4.5 Mcg Inhaler] 10.2 gm IH BID #1 hfa.aer.ad Guaifenesin [Mucinex] 1,200 mg PO BID #20 tablet Lisinopril/Hydrochlorothiazide [Lisinopril-Hctz 10-12.5 mg Tab] 1 each PO BID #60 tablet Primary Care Physician: Care Physician,No Primary [Primary Care Provider] - Please Follow Up With: Mikey Bernabe MD When: Ariane in 2 weeks to schedule PFT's and a sleep study Patient Instructions: What Are Snoring and Sleep Apnea?, Visiting a Sleep Clinic Disposition: Home Minutes spent on discharge:: 30 Patient Condition:: Stable Medical Necessity - Tobacco Use Smoking Status: Former smoker Tobacco Use: Non-smoker Meaningful Use Info Meaningful Use Diagnoses (Choose all that apply): None applicable Code Visit OBSV E&M: 07133 Observation care discharge
== END 2019-01-12 15:08 | disposition home or self-care (01) ==
LOC: ED 18:23 → MS3 20:14
PROVIDERS: Emergency Provider Emergency Medicine; Visit Provider Internal Medicine
DX: J10.1 Influenza due to other identified influenza virus with other respiratory manifestations (principal); J44.1 Chronic obstructive pulmonary disease with (acute) exacerbation; I16.0 Hypertensive urgency; I10 Essential (primary) hypertension; Z87.891 Personal history of nicotine dependence
CPT/HCPCS: 36415; 71045; 71046; 78452; 80048; 80061; 84484; 85025; 85610; 85730; 93005; 93017; 94640; 94664; 94667; 94668; 96361; 96374; 96375; 96376; 99218; 99281; A9500; J7030; A4216; G0378; J2785

== ENCOUNTER → 2019-02-28 | Outpatient (CLI) | payer MEDICAID, SELFPAY ==
[2019-02-07 06:00] VITALS: BMI 43.9
== END | disposition home or self-care (01) ==
LOC: SL 20:24
PROVIDERS: Family Provider Internal Medicine; PCP Internal Medicine; Referring Provider Internal Medicine Critical Care Medicine; Visit Provider Internal Medicine Critical Care Medicine
DX: G47.33 Obstructive sleep apnea (adult) (pediatric) (principal)
CPT/HCPCS: 95811

== ENCOUNTER → 2019-03-01 | Outpatient (CLI) | payer MEDICAID, SELFPAY ==
[2019-02-07 06:00] VITALS: BMI 43.9
--- NOTE | 2019-03-01 13:16 | PFTCOMP ---
COMPLETE PULMONARY FUNCTION TEST INTERPRETATION Brief HPI: Patient is a 53 year old male, currently under the care of myself, who presents to [facility] for complete pulmonary function tests secondary to diagnosis of dyspnea. Respiratory therapist reports good effort and reproducible results. Interpretation: Forced expiration spirometry shows a mild large airways obstructive ventilatory defect with an FEV1 of 87% predicted. There is a significant bronchodilator response in FEV1 by strict ATS criteria. Spirograms are of good quality and plateau normally. The respiratory flow volume loop shows a normal pattern. Lung volumes by body plethysmography show a normal total lung capacity at 5.59 L, 86% predicted. All other lung volumes are within normal limits. Diffusion capacity by carbon monoxide is normal at 93% predicted. The airway resistance is normal. No previous pulmonary function tests were available for review. Impression: Fully reversible mild large airways obstructive ventilatory defect in a pattern consistent with asthma
--- NOTE | 2019-03-01 13:20 | PFTCOMP_ITS ---
COMPLETE PULMONARY FUNCTION TEST INTERPRETATION Brief HPI: Patient is a 53 year old male, currently under the care of myself, who presents to [facility] for complete pulmonary function tests secondary to diagnosis of dyspnea. Respiratory therapist reports good effort and reproducible results. Interpretation: Forced expiration spirometry shows a mild large airways obstructive ventilatory defect with an FEV1 of 87% predicted. There is a significant bronchodilator response in FEV1 by strict ATS criteria. Spirograms are of good quality and plateau normally. The respiratory flow volume loop shows a normal pattern. Lung volumes by body plethysmography show a normal total lung capacity at 5.59 L, 86% predicted. All other lung volumes are within normal limits. Diffusion capacity by carbon monoxide is normal at 93% predicted. The airway resistance is normal. No previous pulmonary function tests were available for review. Impression: Fully reversible mild large airways obstructive ventilatory defect in a pattern consistent with asthma
== END | disposition home or self-care (01) ==
LOC: PSN 06:28
PROVIDERS: Family Provider Internal Medicine; PCP Internal Medicine; Referring Provider Internal Medicine Critical Care Medicine; Visit Provider Internal Medicine Critical Care Medicine
DX: R06.09 Other forms of dyspnea (principal)
CPT/HCPCS: 94060; 94726; 94729

== ENCOUNTER → 2019-03-14 | Outpatient (CLI) | payer MEDICAID, SELFPAY ==
[2019-02-07 06:00] VITALS: BMI 43.9
== END | disposition home or self-care (01) ==
LOC: SL 09:49
PROVIDERS: Family Provider Internal Medicine; PCP Internal Medicine; Referring Provider Nurse Practitioner Acute Care; Visit Provider Nurse Practitioner Acute Care
DX: G47.33 Obstructive sleep apnea (adult) (pediatric) (principal)

== ENCOUNTER 2019-12-10 00:52 | Emergency (ER) | payer MEDICAID, SELFPAY ==
[2019-02-07 06:00] VITALS: BMI 43.9
[2019-12-10 00:52] VITALS: BP 158/111; PULSE 78; RESP 18; TEMP 36.4; O2SAT 98; BMI 50.5
--- NOTE | 2019-12-10 01:03 | ED.VIS.GEN ---
History of Present Illness Chief Complaint: Lower Extremity Injury Detail of Chief Complaint: Left foot swelling Informant: Patient Onset: Yesterday Current Severity: Moderate Maximum Severity: Moderate Narrative: Patient presents with primary complaint of left foot swelling. He works at a local [employer]. He said at 2 PM yesterday when he went to work his left foot was slightly swollen. He was on his feet all night and when he came home tonight noted his foot was significantly more swollen. It is not particular painful. He has what sounds like chronic paresthesias and slight burning in his feet. No recent injury. He reports chronic shortness of breath that has not changed from baseline. - Past Medical History (1) Asthma Status: Chronic (2) COPD (chronic obstructive pulmonary disease) Status: Chronic (3) HTN (hypertension) Status: Chronic (4) FREDERICK (obstructive sleep apnea) Status: Chronic (5) History of left knee replacement Status: Resolved Past Medical History - Allergies and Home Meds Allergies/Adverse Reactions: Allergies Penicillins Allergy (Verified 12/10/19 00:56) Unknown Primary Care Physician: Anika Velazco MD [Primary Care Provider] - Prior records reviewed: Yes Lives: Spouse/ Significant Other Smoking Status: Former smoker Review of Systems General: Denies: Chills, Fever Eyes: Denies: Visual changes - bilaterally ENT: Denies: Bilateral ear pain Cardiovascular: Denies: Chest pain Respiratory: Denies: Dyspnea, Cough Gastrointestinal: Denies: Abdominal pain, Nausea, Vomiting, Diarrhea Musculoskeletal: Reports: Swelling, Extremity Pain Skin: Denies: Rash Neurological: Denies: Headache, Weakness Allergy: Denies: Uticaria Physical Exam Vital Signs/Narrative: Vital Signs Temp Pulse Resp BP Pulse Ox 12/10/19 00:52 97.6 F L 78 18 158/111 H 98 Inital Vital Signs reviewed: Yes General: Well nourished, Well developed Head: Normocephalic ENT: Moist mucous membranes Neck: Supple Cardiovascular: Regular rate, Regular rhythm Respiratory: No distress, CTA bilaterally Abdomen: Soft, Nontender Extremities: - - Patient has 3-4+ pitting edema in the bilateral lower extremities up to the knee. He has strong distal pulses. There are no open wounds. He has good sensation on testing. There is no calf tenderness or palpable cords. Skin: Normal color Neurological: Alert, Oriented x3, Normal Strength, Normal Sensation Psychological: Normal affect Diagnostic/Tx/Re-eval - Medical Decision Making Patient presents with peripheral edema likely secondary to being on his feet all day. Javier wraps will be applied for light compression. I discussed with him getting some compression stockings to wear for work. I encouraged him to elevate his feet above the level of his heart at least tonight when he is sleeping to see if swelling is not significantly improved in the morning. There is no evidence of acute infection or injury. There is no further work-up required at this time. ED Disposition - Plan for ED Patient: Disposition: Home or Assisted Living Diagnosis: Peripheral edema Instructions: ED Peripheral Edema, Bilateral Referrals: Anika Velazco MD [Primary Care Provider] - 1-2 Weeks
[2019-12-10 01:19] VITALS: RESP 14
== END 2019-12-10 01:19 | disposition home or self-care (01) ==
LOC: ED 01:11
PROVIDERS: Emergency Provider Emergency Medicine; PCP Internal Medicine
DX: R60.0 Localized edema (principal); J44.9 Chronic obstructive pulmonary disease, unspecified; I10 Essential (primary) hypertension; Z79.51 Long term (current) use of inhaled steroids; Z79.899 Other long term (current) drug therapy; Z87.891 Personal history of nicotine dependence
CPT/HCPCS: 99282

== ENCOUNTER 2020-01-04 21:20 | Emergency (ER) | payer MEDICAID, SELFPAY ==
[2020-01-04 21:21] VITALS: BP 157/87; PULSE 86; RESP 18; TEMP 36.8; O2SAT 95; BMI 49.4
--- NOTE | 2020-01-04 21:23 | RAD_ITS ---
STUDY: X-RAY - LEFT KNEE REASON FOR EXAM: Male, 54 years old patient with knee pain after fall. TECHNIQUE: 4 view(s) of the knee. COMPARISON: Radiographs of the left knee dated December 10, 2010. FINDINGS: The patient has had a total left knee arthroplasty. Patient has a distal femoral and proximal tibial component. Normal proximal tibiofibular articulation. There is no demonstrated fracture. Normal medial femorotibial compartment. Normal lateral femorotibial compartment. Normal patellofemoral articulation. There are enthesophytes at the quadriceps and patellar tendon insertions onto the patella. There is no demonstrated joint effusion. The soft tissues are prominent. RAD/Knee 4 or More Views IMPRESSION: Postoperative appearance of left knee without definite acute fracture or dislocation. If there is still clinical concern for acute fracture, follow-up radiographs in 7-10 days maybe helpful in evaluating a healing radiographically occult fracture. Electronically Signed: Tessa Sweet MD at 22:53 EST , Service support ,
--- NOTE | 2020-01-04 23:02 | ED.DCSUM_ITS ---
History of Present Illness Chief Complaint: Lower Extremity Injury Informant: Patient Onset: Yesterday Current Severity: Mild Maximum Severity: Moderate Narrative: Patient presents with left knee injury after a fall yesterday. Patient states he came off of a step wrong, rolled his ankle and twisted his knee and fell. He did have the left knee replaced approximately [address] Collins in [place]. Patient states he has increased pain with ambulation. - Past Medical History (1) Asthma Status: Chronic (2) COPD (chronic obstructive pulmonary disease) Status: Chronic (3) HTN (hypertension) Status: Chronic (4) FREDERICK (obstructive sleep apnea) Status: Chronic (5) History of left knee replacement Status: Resolved Past Medical History - Allergies and Home Meds Allergies/Adverse Reactions: Allergies Penicillins Allergy (Verified 12/10/19 00:56) Unknown Prior records reviewed: Yes Lives: Spouse/ Significant Other Smoking Status: Former smoker Review of Systems General: Denies: Chills, Fever Eyes: Denies: Visual changes - bilaterally ENT: Denies: Bilateral ear pain Cardiovascular: Denies: Chest pain Respiratory: Denies: Dyspnea, Cough Gastrointestinal: Denies: Abdominal pain Musculoskeletal: Reports: Extremity Pain Skin: Denies: Rash, Wounds Neurological: Denies: Headache Allergy: Denies: Uticaria Physical Exam Vital Signs/Narrative: Vital Signs Temp Pulse Resp BP Pulse Ox 01/04/20 21:21 98.2 F 86 18 157/87 H 95 Inital Vital Signs reviewed: Yes General: Well nourished, Well developed Head: Normocephalic ENT: Moist mucous membranes Neck: Supple Cardiovascular: Regular rate, Regular rhythm Respiratory: No distress, CTA bilaterally Abdomen: Soft, Nontender Extremities: - - Mild tenderness of the left anterior knee. No significant joint effusion. Good range of motion. Strong distal pulses. No tenderness at the hip or ankle. Skin: Normal color Neurological: Alert, Oriented x3 Psychological: Normal affect Diagnostic/Tx/Re-eval Impressions Knee X-Ray 01/04/20 21:23 IMPRESSION: Postoperative appearance of left knee without definite acute fracture or dislocation. If there is still clinical concern for acute fracture, follow-up radiographs in 7-10 days maybe helpful in evaluating a healing radiographically occult fracture. Electronically Signed: Tessa Sweet MD at 22:53 EST , Service support , 01/04/20 21:23 Knee 4 or More Views [RAD] Stat - Medical Decision Making X-ray results are discussed with the patient. He will continue Tylenol and ibuprofen at home. Javier wrap was applied. He did not feel like he needed crutches or a walker. If symptoms are not improving he will follow-up with his orthopedic surgeon. ED Disposition - Plan for ED Patient: Disposition: Home or Assisted Living Instructions: Knee Sprain Additional Instructions: Follow-up with Dr Collins if not improving in the next 5-7 days.
[2020-01-04 23:09] VITALS: RESP 16
== END 2020-01-04 23:11 | disposition home or self-care (01) ==
PROVIDERS: Emergency Provider Emergency Medicine; PCP Internal Medicine
DX: S83.92XA Sprain of unspecified site of left knee, initial encounter (principal); X50.1XXA Overexertion from prolonged static or awkward postures, initial encounter; J44.9 Chronic obstructive pulmonary disease, unspecified; I10 Essential (primary) hypertension; Z87.891 Personal history of nicotine dependence; Z96.652 Presence of left artificial knee joint; Y93.89 Activity, other specified; Y92.009 Unspecified place in unspecified non-institutional (private) residence as the place of occurrence of the external cause; Y99.8 Other external cause status
CPT/HCPCS: 73564; 99282

== ENCOUNTER 2020-02-28 20:51 | Observation (INO) | payer MEDICAID, SELFPAY ==
[2020-02-28] VITALS (11 sets, daily range): BP systolic 117–157; BP diastolic 64–99; PULSE 77–92; RESP 14–20; TEMP 36.2–36.8; O2SAT 93–97; BMI 51.7; BMI 49.8; BMI 49.9
--- NOTE | 2020-02-28 21:03 | EKG12_ITS ---
Test Reason : CP Blood Pressure : / mmHG Vent. Rate : 088 BPM Atrial Rate : 088 BPM P-R Int : 140 ms QRS Dur : 086 ms QT Int : 370 ms P-R-T Axes : 048 051 086 degrees QTc Int : 447 ms Normal sinus rhythm Normal ECG Confirmed by BRYANT BANUELOS, EVELIO ([id number]), editor & co founder MINERVA DANG ([id number] on 03/03/2020 9:00:49 AM Referred By: CHRISTIAN DONALDSON Confirmed By:EVELIO HURTADO MD
--- NOTE | 2020-02-28 21:04 | ED.VISSUMM ---
- ER Visit Summary Date of Service: 02/28/20 Chief Complaint: [Chest pain] History of Present Illness: The patient is a 54 M [presents to the emergency department complaint of chest discomfort that started around 10 AM. Patient states the pains been relatively continuous. He has had similar pains in the past but usually go away after a short time and today it has not. Patient does feel somewhat short of breath with it. He denies recent travel or surgery. He has had a little bit of a runny nose and a mild cough over the last several days but no fever. Patient attributed symptoms to allergies. Patient denies any radiation of the pain. It does seem to be somewhat exertional and also somewhat worse with movement. The abdominal pain. He denies any nausea or vomiting. Patient thinks he had a stress test about 6 months ago that was unremarkable. He is never had a heart catheterization.] Patient is supposed to be taking blood pressure medicine but states he does not always remember to take it. Physical Examination: [HEENT-PERRLA, EOMI. Cranial nerves II through XII grossly intact. TMs clear. Mucous membranes moist. No adenopathy. Cardiovascular-regular rate and rhythm without murmur or ectopy Lungs-clear to auscultation, chest wall stable without crepitus or subcu emphysema Abdomen-normoactive bowel sounds, soft, nontender, no rebound or rigidity, no peritoneal signs. Extremities-intact ?4, normal range of motion, normal pulses, atraumatic. Patient has +1 edema both lower extremities but symmetric.] Test Results: [EKG obtained arrival shows sinus rhythm with a ventricular rate of 88 bpm with no acute segment changes.] CBC with it was normal. Chemistries unremarkable. Lipase was 187. Troponin less than 0.015. Chest x-ray showed nothing acute. Emergency Department Course and Treatment: [Discussed case with cardiology on-call Dr. Palomares who recommended admission and observation overnight. Will be discussed with hospitalist.] Treatment Plan: [Admit] Disposition: [Admit] Impression: [Chest pain-rule out acute coronary syndrome] This note was generated with [employer] software. It may contain incorrect words, spelling, and punctuation that were not noted in review of the chart prior to signing ED Disposition - Plan for ED Patient: Referrals: Anika Velazco MD [Primary Care Provider] -
--- NOTE | 2020-02-28 21:10 | RAD_ITS ---
STUDY: X-RAY CHEST REASON FOR EXAM: Male, 54 years old. Chest pain TECHNIQUE: Frontal view of the chest COMPARISON: 01/11/2019 FINDINGS: The lungs are clear. There are no pleural effusions. There is no pneumothorax. The heart is normal in size. The visualized osseous structures are within normal limits. RAD/Chest 1 View (Portable) IMPRESSION: No acute thoracic pathology. Electronically Signed: Kevin Grossman, at 21:25 EDT Tel , Service support ,
[2020-02-28] MEDS: Aspirin 81 MG TAB.CHEW 324 MG PO (21:19)
[2020-02-28] MEDS: 0.9% Normal Saline 1,000 ML 150 ML IV (21:19)
[2020-02-28] MEDS: Nitroglycerin SL (ED/IMG/CATH) 0.4 MG TABLET SUBLINGUAL ×2 (21:19→21:46)
[2020-02-28 21:22] LABS: Absolute Neutrophil Count 3.6 X10^3/uL (2.0-7.7); Basophil# 0.06 X10^3/uL; Basophil% 0.8 % (0-1); Eosinophil# 0.39 X10^3/uL; Hematocrit 46.1 % (40-54); Hemoglobin 15.5 g/dL (13.0-16.5); Lymphocyte % 37.1 % (19-41); Mean Corp Hgb Conc 33.6 g/dL (32-36); Mean Corpuscular Hgb 31.2 pg (27.0-32.0); Mean Corpuscular Volume 92.8 fL (80-94); Monocyte# 0.82 X10^3/uL; Monocyte% 10.5 % (0-10); NRBC Flagged by Analyzer 0 % (0-5); Neutrophil # 3.63 X10^3/uL (2.7-7.7); Neutrophil % 46.3 % (47-70); Platelet Count 202 K/mm3 (150-450); RBC Distribution Width SD 44.3 fl (35.1-43.9); Red Blood Count 4.97 M/mm3 (4.6-6.2); White Blood Count 7.8 K/mm3 (4.4-11.0)
[2020-02-28 21:29] LABS: D-Dimer Quantitative (DVT/PE) 0.36 FEU/ug/m (0.27-0.49)
[2020-02-28 21:39] LABS: Anion Gap 4 (5-15); BUN 17 mg/dL (7-18); BUN/Creat Ratio 14.5 RATIO (10-20); Chloride 107 mmol/L (98-107); Creatinine, Serum 1.17 mg/dL (0.70-1.30); EST Glomerular Filtration Rate 69 mL/min (>60); Est Glom Filt Rate - Afr Amer 83 mL/min (>60); Estimated Creatinine Clearance 71.34 ml/min; Glucose 109 mg/dL (74-106); Lipase 187 U/L (73-393); Potassium 4.1 mmol/L (3.5-5.1); Sodium Level 141 mmol/L (136-145)
[2020-02-28 21:51] LABS: AST(SGOT) 29 U/L (15-37); Alanine Aminotransfer ALT/SGPT 42 U/L (16-61); Albumin, Serum 3.7 g/dL (3.2-5.0); Alkaline Phosphatase 87 U/L (45-117); Bilirubin, Direct 0.14 mg/dL (0.00-0.30); Globulin 3.9 g/dL (2.2-4.2); Protein, Total 7.6 g/dL (6.4-8.2)
[2020-02-28] MEDS: Nitroglycerin Oint 1 INCH PACKET TRANSDERM. (22:13)
--- NOTE | 2020-02-28 22:15 | HP.PCM_ITS ---
History of Present Illness Date of Admission: 02/28/20 Chief Complaint: Chest pain The patient is a 54 year old M with PMH as below who presents with chest pain that is been fairly continuous all day today since about 10 AM. He states that it is worse with activity and better with rest. He had a little bit of chest pain yesterday but otherwise has been chest pain-free for the last several months. He did have a stress test done about a year ago which was unremarkable. He is a former smoker and is morbidly obese as well as a history of hypertension. There is some heart disease history in his family. In the ER initial troponin was unremarkable, chest pain is improved significantly with the Nitropaste and his EKG is nonischemic. Cardiology was contacted who did recommend admission and felt that if necessary they can be consulted in the morning. Past Medical History Past Medical History (Chronic Problems): Chronic Problems (Last Updated 02/07/19 @ 07:26 by Tory Peralta) COPD (chronic obstructive pulmonary disease) (Chronic) HTN (hypertension) (Chronic) FREDERICK (obstructive sleep apnea) (Chronic) Emphysema lung (Chronic) Asthma (Chronic) Medical History: Medical History (Last Updated 02/07/19 @ 07:26 by Tory Peralta) COPD (chronic obstructive pulmonary disease) (Chronic) J44.9 HTN (hypertension) (Chronic) I10 FREDERICK (obstructive sleep apnea) (Chronic) G47.33 Emphysema lung (Chronic) J43.9 Asthma (Chronic) J45.909 COPD with acute exacerbation (Acute) J44.1 Hypertensive urgency (Acute) I16.0 Influenza A (Acute) J10.1 Allergies Penicillins Allergy (Verified 12/10/19 00:56) Unknown Home Medications: Ambulatory Orders Medication Instructions Recorded Lisinopril/Hydrochlorothiazide 1 each PO BID #60 tablet 01/12/19 [Lisinopril-Hctz 10-12.5 mg Tab] Surgical History: Surgical History (Last Updated 02/07/19 @ 07:27 by Tory Peralta) History of left knee replacement (Resolved) Z96.652 Psychiatric History: No pertinent psych hx Smoking Status: Former smoker Tobacco Use: Cigarettes Alcohol: None Drugs: None - *Family History Maternal Family History: Family History (Last Updated 01/10/19 @ 20:[address] Medardo Talbert, DO) Other COPD (chronic obstructive pulmonary disease) History Items: Cancer Paternal Family History: Family History (Last Updated 01/10/19 @ 20:[address] Medardo Talbert DO) Other COPD (chronic obstructive pulmonary disease) History Items: Cancer Review of Systems Constitutional: Denies: Chills, Fever, Weight Change HEENT: Denies: Head Aches, Sinus Congestion, Sinus Drainage Cardiovascular: Reports: Chest Pain. Denies: Palpitations Respiratory: Reports: Shortness of Breath. Denies: Cough, Shortness of breath at rest, Sputum production Gastrointestinal: Denies: Abdominal Pain, Nausea, Vomiting Genitourinary: Denies: Dysuria Musculoskeletal: Denies: Joint Pain, Joint Tenderness Skin: Denies: Rash, Wounds Neurological: Denies: Numbness, Tingling, Focal weakness Psychiatric: Denies: Anxiety, Depression Hematologic/ Lymphatic: Denies: Easy Bruising, Easy Bleeding VTE Information - Inpt Only VTE Present on Admission: No - Physical Exam Vitals/I&O's: Vital Signs Temp Pulse Resp BP Pulse Ox 97.3 F L 82 19 H 117/84 H 97 02/28/20 22:02 02/28/20 22:13 02/28/20 22:05 02/28/20 22:13 02/28/20 22:05 Oxygen Delivery Method Room Air Weight: 350 lb 8.56 oz Body Mass Index (BMI) 51.7 General: Alert, Oriented x3, Cooperative, No apparent distress HEENT: Atraumatic, PERRLA, EOMI, Normocephalic Oral: Moist Mucosa Neck: Supple, No JVD Lungs: Clear to auscultation, Normal air movement, No rhonchi, No wheeze, No rales Cardiovascular: Regular rate, Regular Rhythm, Normal S1, Normal S2, No murmurs Abdomen: Soft, Non Tender, Non-Distended, No Hepato-splenomegaly, Obese Extremities: No edema, Capillary Refill Less than 3 Seconds Skin: No rashes, No breakdown Neurological: Neuro grossly intact, Sensory exam intact to light touch and pain Psych/Mental Status: Normal Affect, Appropriate Laboratory Results 02/28/20 20:58: Total Bilirubin 0.40, Direct Bilirubin 0.14, AST 29, ALT 42, Alkaline Phosphatase 87, Total Protein 7.6, Albumin 3.7, Globulin 3.9 04/17/20 20:58: WBC 7.8, RBC 4.97, Hgb 15.5, Hct 46.1, MCV 92.8, MCH 31.2, MCHC 33.6, RDW Std Deviation 44.3 H, RDW Coeff of [place] 13.0, Plt Count 202, MPV 12.0, Immature Gran % (Auto) 0.300, Neut % (Auto) 46.3 L, Lymph % (Auto) 37.1, [place] % (Auto) 10.5 H, Eos % (Auto) 5.0, Baso % (Auto) 0.8, Absolute Neuts (auto) 3.6, Absolute Lymphs (auto) 2.90, Nucleated RBC % 0 02/28/20 20:58: D-Dimer Quant (PE/DVT) 0.36 02/28/20 20:58: Sodium 141, Potassium 4.1, Chloride 107, Carbon Dioxide 30.0, Anion Gap 4 L, BUN 17, Creatinine 1.17, Estim Creat Clear Calc 71.34, Est GFR (MDRD) Af Amer 83, Est GFR (MDRD) Non-Af 69, BUN/Creatinine Ratio 14.5, Glucose 109 H, Calcium 9.0, Troponin I < 0.015, Lipase 187 Current Medications Sodium Chloride () 1,000 mls @ 150 mls/hr IV .Q6H40M LLOYD Last Admin: 02/28/20 21:19 Dose: 150 mls/hr Documented by: Nitroglycerin (Nitrostat) 0.4 mg SUBLINGUAL Q5M PRN PRN Reason: Chest pain Last Admin: 02/28/20 21:46 Dose: 0.4 mg Documented by: Assessment/Plan All Active Problems (Last Updated 02/07/19 @ 07:26 by Tory Peralta) Dyspnea (Acute) History of left knee replacement (Resolved) COPD with acute exacerbation (Acute) Hypertensive urgency (Acute) Influenza A (Acute) 1. Chest pain/morbid obesity/HTN -He is also a former smoker -We will check lipid panel in the morning -Serial troponins and stress test in the morning -Had a discussion with him on weight loss as his BMI is 51.8 -Continue with his home blood pressure medication 2. COPD -Not currently in exacerbation -Continue to monitor DVT: Ambulation low risk OBSV E&M: [id number] Initial observation care L2
--- NOTE | 2020-02-28 22:41 | EKG12_ITS ---
Test Reason : CP ADMISSION Blood Pressure : / mmHG Vent. Rate : 080 BPM Atrial Rate : 080 BPM P-R Int : 142 ms QRS Dur : 082 ms QT Int : 378 ms P-R-T Axes : 051 045 085 degrees QTc Int : 435 ms Normal sinus rhythm Normal ECG Confirmed by CHARLY BANUELOS, BECKY ([id number]), editorial assistant MINERVA DANG ([id number]) on 03/04/2020 10:04:44 AM Referred By: ERICKA Confirmed By:BECKY PARKS MD
[2020-02-28 23:23] LABS: Cholesterol 158 mg/dL (200); High Density Lipoprotein 49 mg/dL; Triglycerides 191 mg/dL; Very Low Density Lipoprotein 38 mg/dL (5-40)
[2020-02-29 03:00] VITALS: PULSE 74
[2020-02-29 03:10] LABS: Basophil# 0.05 X10^3/uL; Basophil% 0.7 % (0-1); Eosinophil# 0.33 X10^3/uL; Eosinophils% 4.8 % (0-5); Hematocrit 42.8 % (40-54); Hemoglobin 14.3 g/dL (13.0-16.5); Lymphocyte % 40.6 % (19-41); Mean Corp Hgb Conc 33.4 g/dL (32-36); Mean Corpuscular Hgb 30.8 pg (27.0-32.0); Mean Corpuscular Volume 92.2 fL (80-94); Mean Platelet Vol. 11.7 fl (6.2-12.0); Monocyte# 0.69 X10^3/uL; NRBC Flagged by Analyzer 0 % (0-5); Neutrophil # 3.01 X10^3/uL (2.7-7.7); Neutrophil % 43.8 % (47-70); Platelet Count 180 K/mm3 (150-450); RBC Distribution Width CV 13.2 % (11.6-14.6); RBC Distribution Width SD 44.4 fl (35.1-43.9); Red Blood Count 4.64 M/mm3 (4.6-6.2); White Blood Count 6.9 K/mm3 (4.4-11.0)
[2020-02-29 04:24] LABS: Anion Gap 6 (5-15); BUN 19 mg/dL (7-18); BUN/Creat Ratio 19.8 RATIO (10-20); Calcium,Total 8.4 mg/dL (8.5-10.1); Chloride 108 mmol/L (98-107); Creatinine, Serum 0.96 mg/dL (0.70-1.30); EST Glomerular Filtration Rate 86 mL/min (>60); Est Glom Filt Rate - Afr Amer 104 mL/min (>60); Estimated Creatinine Clearance 86.94 ml/min; Glucose 101 mg/dL (74-106); Sodium Level 142 mmol/L (136-145)
[2020-02-29 04:45] VITALS: BP 120/67; PULSE 85; RESP 18; TEMP 36.9; O2SAT 94
--- NOTE | 2020-02-29 05:55 | EKG12_ITS ---
Test Reason : AM EKG Blood Pressure : / mmHG Vent. Rate : 083 BPM Atrial Rate : 083 BPM P-R Int : 146 ms QRS Dur : 080 ms QT Int : 388 ms P-R-T Axes : 059 049 086 degrees QTc Int : 455 ms Normal sinus rhythm Normal ECG Confirmed by CHARLY BANUELOS, BECKY ([id number]), senior technical editor MINERVA DANG ([id number]) on 03/04/2020 9:56:03 AM Referred By: ERICKA Confirmed By:BECKY PARKS MD
[2020-02-29 06:33] VITALS: PULSE 72
[2020-02-29 10:36] VITALS: BP 158/101; PULSE 96; RESP 18; TEMP 36.5; O2SAT 95
--- NOTE | 2020-02-29 12:49 | STRESSREP_ITS ---
Stress Test Report Pharmacologic myocardial perfusion stress test. 54-year-old man with a history of chest pain. Stress protocol The resting EKG demonstrates normal sinus rhythm with a rate of 82 bpm normal intervals are noted resting blood pressures 110/64 mmHg. 0.4 mg of regadenoson was infused per usual protocol followed by Intravenous and flush injection continuous EKG monitoring was performed. 0.4 mg of regadenoson was infused per usual protocol. The maximum heart rate attained was 117 bpm which was 70% of maximum practice heart rate the maximum workload was 1 metabolic equivalent. At rest there were no ST or T wave changes noted to suggest abnormal flow reserve at peak infusion nonspecific ST-T wave changes were noted. There were no ch anges noted at rest or peak infusion to suggest ischemia. The resting blood pressure was 110/64 with a final blood pressure 128/64. Myocardial perfusion protocol. 15.0 mCi of technetium 99m sestamibi was injected at rest. 0.4 mg of regadenoson was infused per usual protocol. At peak infusion 45.0 mCi of technetium 99m sestamibi was injected stress images were obtained stress and rest images were reconstructed and compared in the short axis vertical long horizontal long axis. Gated images were also obtained. Perfusion SPECT analysis: Review of the stress images demonstrate normal uptake of tracer noted in all areas of the myocardium the resting images similarly demonstrate normal uptake of tracer noted in all areas of the myocardium. No reversibility is noted suggest ischemia. Gated SPECT analysis: The gated ejection fraction is noted to be 60%. Conclusion: Normal pharmacologic myocardial perfusion stress test. Preserved ejection fraction.
[2020-02-29 12:59] VITALS: BP 166/97; PULSE 89; RESP 18; TEMP 36.6; O2SAT 94
[2020-02-29] MEDS: Lisinopril 10 MG Tablet PO (13:00)
[2020-02-29] MEDS: hydroCHLOROthiazide 12.5mg 12.5 MG PO (13:00)
--- NOTE | 2020-02-29 13:02 | DCINST_ITS ---
You will use the following diet at home:: Cardiac Your food should be the consistency of: Regular Your liquids should be the consistency of: Regular/Thin Discharge Activity: Return to Normal Activity Weight Bearing Status: Weight bearing as tolerated Call your doctor if you observe: Fever of 101 or Higher, Swelling in the ankles, Chest pain Instructions: What Is Angina?, Your Heart is at Risk Allergies/Adverse Reactions: Allergies Penicillins Allergy (Verified 12/10/19 00:56) Unknown Medications to take at Discharge Lisinopril/Hydrochlorothiazide [Lisinopril-Hctz 10-12.5 mg Tab] 10 - 12.5 mg PO DAILY 02/28/20 Primary Care Physician: Anika Velazco MD [Primary Care Provider] - Please follow up with your Primary Care Physician in: one week Test Results: Test results from this visit will be discussed in further detail at your follow- up appointment, if applicable. Proposed Discharge Date: 02/29/20
--- NOTE | 2020-02-29 13:04 | DS.PCM_ITS ---
Discharge Date and Diagnosis Date of Admission: 02/28/20 Date of Discharge: 02/29/20 - Primary Discharge Diagnosis chest pain - Secondary Discharge Diagnosis Chronic Problems (Last Updated 02/07/19 @ 07:26 by Tory Peralta) COPD (chronic obstructive pulmonary disease) (Chronic) HTN (hypertension) (Chronic) FREDERICK (obstructive sleep apnea) (Chronic) Emphysema lung (Chronic) Asthma (Chronic) Hospital Course and Treatment Imaging Results: 02/29/20 05:55 Nuclear Stress Test - Chemical [NM] Routine Operations: None Procedures: Stress test Summary of Care Provided: The patient is a 54 year old M with a past medical history as outlined. He was admitted through the ED on 02/28/2020 with a complaint of chest pain which is been going on since morning of the day of admission. It was worsened by exertion and relieved by rest. He had a stress test about a year ago which was unremarkable. Troponins x3 were negative. EKG showed no acute ST changes. He was admitted and managed for chest pain rule out ACS. Patient had stress test on 02/29/2020 which showed no evidence of acute ischemia. Of note, chest pain was also producible with palpation. Patient remained stable and was discharged home on 02/29/2020. He is to follow-up with his primary care doctor within 1 week. Patient seen and examined prior to discharge. He had no complaints and felt well. Chest pain had not recurred. Review of systems otherwise negative. Labs and vitals reviewed. Home medication reviewed and reconciled. o/e: Vital Signs Temp Pulse Resp BP Pulse Ox 02/29/20 12:59 97.9 F 89 18 166/97 H 94 02/29/20 10:36 97.7 F L 96 18 158/101 H 95 [] General: Alert, Oriented x3, Cooperative, No apparent distress, morbidly obese. HEENT: Atraumatic, PERRLA, EOMI, Normocephalic Oral: Moist Mucosa Neck: Supple, No JVD Lungs: Clear to auscultation, Normal air movement, No rhonchi, No wheeze, No rales Cardiovascular: Regular rate, Regular Rhythm, Normal S1, Normal S2, No murmurs Abdomen: Soft, Non Tender, Non-Distended, No Hepato-splenomegaly, Obese Extremities: No edema, Capillary Refill Less than 3 Seconds Skin: No rashes, No breakdown Neurological: Neuro grossly intact, Sensory exam intact to light touch and pain Psych/Mental Status: Normal Affect, Appropriate Plan is for dc home. Patient;s BP was noted to be evaded during admission but he had not gotten his blood pressure meds since admission. His BP meds were resumed namely lisinopril and hydrochlorothiazide and he was counseled on compliance. He is to follow-up with his primary care doctor as stated above. - Physical Exam Vitals/I&O's: Vital Signs Temp Pulse Resp BP Pulse Ox 97.9 F 89 18 166/97 H 94 02/29/20 12:59 02/29/20 12:59 02/29/20 12:59 02/29/20 12:59 02/29/20 12:59 Oxygen Delivery Method Room Air Weight: 337 lb 15.498 oz Body Mass Index (BMI) 49.8 Intake and Output for Last 24 Hours 02/27/20 02/28/20 02/29/20 23:59 23:59 23:59 Intake Total 317.5 / 317.5 Balance 317.5 / 317.5 Laboratory Results 02/28/20 20:58: Total Bilirubin 0.40, Direct Bilirubin 0.14, AST 29, ALT 42, Alkaline Phosphatase 87, Total Protein 7.6, Albumin 3.7, Globulin 3.9 02/28/20 20:58: WBC 7.8, RBC 4.97, Hgb 15.5, Hct 46.1, MCV 92.8, MCH 31.2, MCHC 33.6, RDW Std Deviation 44.3 H, RDW Coeff of Garfield 13.0, Plt Count 202, MPV 12.0, Immature Gran % (Auto) 0.300, Neut % (Auto) 46.3 L, Lymph % (Auto) 37.1, [place] % (Auto) 10.5 H, Eos % (Auto) 5.0, Baso % (Auto) 0.8, Absolute Neuts (auto) 3.6, Absolute Lymphs (auto) 2.90, Nucleated RBC % 0 02/28/20 20:58: D-Dimer Quant (PE/DVT) 0.36 02/28/20 20:58: Sodium 141, Potassium 4.1, Chloride 107, Carbon Dioxide 30.0, Anion Gap 4 L, BUN 17, Creatinine 1.17, Estim Creat Clear Calc 71.34, Est GFR (MDRD) Af Amer 83, Est GFR (MDRD) Non-Af 69, BUN/Creatinine Ratio 14.5, Glucose 109 H, Calcium 9.0, Troponin I < 0.015, Lipase 187 02/28/20 20:58: Triglycerides 191, Cholesterol 158, LDL Cholesterol 71, VLDL Cholesterol 38, HDL Cholesterol 49 02/29/20 00:18: Troponin I < 0.015 02/29/20 02:55: WBC 6.9, RBC 4.64, Hgb 14.3, Hct 42.8, MCV 92.2, MCH 30.8, MCHC 33.4, RDW Std Deviation 44.4 H, RDW Coeff of Garfield 13.2, Plt Count 180, MPV 11.7, Immature Gran % (Auto) 0.100, Neut % (Auto) 43.8 L, Lymph % (Auto) 40.6, [place] % (Auto) 10.0, Eos % (Auto) 4.8, Baso % (Auto) 0.7, Absolute Neuts (auto) 3.0, Absolute Lymphs (auto) 2.80, Nucleated RBC % 0 02/29/20 02:55: Sodium 142, Potassium 4.0, Chloride 108 H, Carbon Dioxide 28.0, Anion Gap 6, BUN 19 H, Creatinine 0.96, Estim Creat Clear Calc 86.94, Est GFR (MDRD) Af Amer 104, Est GFR (MDRD) Non-Af 86, BUN/Creatinine Ratio 19.8, Glucose 101, Calcium 8.4 L 02/29/20 02:55: Troponin I < 0.015 Current Medications Hydrochlorothiazide () 12.5 mg PO DAILY [facility] Last Admin: 02/29/20 13:00 Dose: 12.5 mg Documented by: Sodium Chloride () 250 mls @ 15 mls/hr IV .[id number] PRN PRN Reason: Saline Flush Sodium Chloride () 250 mls @ 15 mls/hr IV .[id number] PRN PRN Reason: Additional IVPB Infusion Lisinopril (Zestril) 10 mg PO DAILY [facility] Last Admin: 02/29/20 13:00 Dose: 10 mg Documented by: Nitroglycerin (Nitrostat) 0.4 mg SUBLINGUAL Q5M PRN PRN Reason: CARDIAC/CHEST PAIN Sodium Chloride () 10 - 40 ml IV UD PRN PRN Reason: SALINE FLUSH Discharge Diet: Low fat/ Low Cholesterol Discharge Activity: Return to Normal Activity Weight Bearing Status: Weight bearing as tolerated Call your doctor if you observe: Fever of 101 or Higher, Swelling in the ankles, Chest pain Home Medications: Medications to take at Discharge Lisinopril/Hydrochlorothiazide [Lisinopril-Hctz 10-12.5 mg Tab] 10 - 12.5 mg PO DAILY 02/28/20 Primary Care Physician: Anika Velazco MD [Primary Care Provider] - Please follow up with your Primary Care Physician in: one week Patient Instructions: What Is Angina?, Your Heart is at Risk Disposition: Home Minutes spent on discharge:: 35 Patient Condition:: Stable Medical Necessity - Tobacco Use Smoking Status: Former smoker Tobacco Use: Cigarettes Meaningful Use Info Meaningful Use Diagnoses (Choose all that apply): None applicable OBSV E&M: 67737 Observation care discharge
== END 2020-02-29 13:03 | disposition home or self-care (01) ==
LOC: ED 21:35 → PCU 22:09
PROVIDERS: Admitting Provider Family Medicine; Emergency Provider Emergency Medicine; PCP Internal Medicine; Visit Provider Student in an Organized Health Care Education/Training Program
DX: R07.89 Other chest pain (principal); I10 Essential (primary) hypertension; J44.9 Chronic obstructive pulmonary disease, unspecified; G47.33 Obstructive sleep apnea (adult) (pediatric); R06.02 Shortness of breath; E66.01 Morbid (severe) obesity due to excess calories; Z87.891 Personal history of nicotine dependence; Z82.49 Family history of ischemic heart disease and other diseases of the circulatory system; Z79.899 Other long term (current) drug therapy; Z68.43 Body mass index [BMI] 50.0-59.9, adult
CPT/HCPCS: 36415; 71045; 78452; 80048; 80061; 80076; 83690; 84484; 85025; 85379; 93005; 93017; 99285; A9500; A4216; J2785

== ENCOUNTER 2020-04-05 14:22 | Observation (INO) | payer MEDICAID, SELFPAY ==
[2020-02-28 22:45] VITALS: BMI 49.8
[2020-04-05] VITALS (12 sets, daily range): BP systolic 131–188; BP diastolic 76–103; PULSE 18–99; RESP 14–18; TEMP 36.5–37.1; O2SAT 94–98; BMI 51.0; BMI 49.8; BMI 49.9
--- NOTE | 2020-04-05 15:02 | EKG12_ITS ---
Test Reason : Blood Pressure : / mmHG Vent. Rate : 083 BPM Atrial Rate : 083 BPM P-R Int : 156 ms QRS Dur : 088 ms QT Int : 366 ms P-R-T Axes : 052 043 073 degrees QTc Int : 430 ms Normal sinus rhythm Normal ECG Confirmed by EVELIO HURTADO MD ([id number]), publishing editor MINERVA DANG ([id number] on 04/07/2020 3:21:17 PM Referred By: WENDY Confirmed By:EVELIO HURTADO MD
[2020-04-05 15:05] LABS: Bedside Glucose 119 mg/dL (70-110)
[2020-04-05 15:09] LABS: Absolute Lymphocyte Count 2.85 X10^3/uL (0.83-4.51); Absolute Neutrophil Count 3.3 X10^3/uL (2.0-7.7); Basophil# 0.04 X10^3/uL; Basophil% 0.6 % (0-1); Eosinophils% 4.2 % (0-5); Hematocrit 45.1 % (40-54); Hemoglobin 14.9 g/dL (13.0-16.5); Lymphocyte # 2.85 X10^3/ul (4.0); Lymphocyte % 39.7 % (19-41); Mean Corpuscular Volume 93.8 fL (80-94); Mean Platelet Vol. 11.8 fl (6.2-12.0); Monocyte# 0.72 X10^3/uL; NRBC Flagged by Analyzer 0 % (0-5); Neutrophil # 3.25 X10^3/uL (2.7-7.7); Neutrophil % 45.4 % (47-70); Platelet Count 193 K/mm3 (150-450); RBC Distribution Width CV 12.8 % (11.6-14.6); RBC Distribution Width SD 43.8 fl (35.1-43.9); Red Blood Count 4.81 M/mm3 (4.6-6.2); White Blood Count 7.2 K/mm3 (4.4-11.0)
--- NOTE | 2020-04-05 15:20 | RAD_ITS ---
STUDY: X-RAY CHEST REASON FOR EXAM: Male, 54 years old. SOB, DIZZINESS,DROWSY TECHNIQUE: Single AP portable view of the chest. COMPARISON: 02/28/2020. FINDINGS: The lungs are clear and expanded. There is no demonstrated pleural abnormality. Normal size heart. Normal mediastinum and mo. Normal visualized pulmonary arteries. Normal visualized aortic arch and descending thoracic aorta. Normal visualized thoracic spine. Normal visualized ribs, clavicles, and shoulders. There is no demonstrated abnormality of the visualized soft tissue structures of the upper abdomen. RAD/Chest 1 View (Portable) IMPRESSION: Normal x-ray examination of the chest. Electronically Signed: Bruce Espinosa MD at 16:16 EDT , Service support ,
[2020-04-05] MEDS: 0.9% Normal Saline 1,000 ML 1000 ML IV (15:22)
[2020-04-05 15:24] LABS: ALB/GLOB Ratio 0.9 RATIO (0.9-2.4); AST(SGOT) 28 U/L (15-37); Alanine Aminotransfer ALT/SGPT 43 U/L (16-61); Albumin, Serum 3.5 g/dL (3.2-5.0); Alkaline Phosphatase 81 U/L (45-117); Anion Gap 7 (5-15); BUN 15 mg/dL (7-18); BUN/Creat Ratio 14.7 RATIO (10-20); Calcium,Total 8.9 mg/dL (8.5-10.1); Chloride 104 mmol/L (98-107); Creatinine, Serum 1.02 mg/dL (0.70-1.30); EST Glomerular Filtration Rate 81 mL/min (>60); Est Glom Filt Rate - Afr Amer 97 mL/min (>60); Estimated Creatinine Clearance 81.83 ml/min; Glucose 111 mg/dL (74-106); Potassium 3.8 mmol/L (3.5-5.1); Protein, Total 7.5 g/dL (6.4-8.2); Sodium Level 139 mmol/L (136-145)
--- NOTE | 2020-04-05 15:56 | PCM.HP.STD ---
Problem List (1) History of left knee replacement Status: Inactive (2) COPD (chronic obstructive pulmonary disease) Status: Chronic (3) HTN (hypertension) Status: Chronic (4) FREDERICK (obstructive sleep apnea) Status: Chronic (5) Emphysema lung Status: Chronic (6) Asthma Status: Chronic History of Present Illness Date of Admission: 04/05/20 Chief Complaint: Syncope. The patient is a 54 year old M who presents to the emergency room due to syncope, lightheadedness. Patient reports he began to push mow his lawn today and became very lightheaded and dizzy. He stopped and went inside to rest. He then felt better and went to return to push mowing when his symptoms returned. He denies chest pain, shortness of breath. He again stopped mowing and went inside to sit down. A family member who came to the house to take patient to work and said that he was not responding appropriately. Patient does not remember this period of time. Patient reports approximately a year ago he was walking when he passed out and was found unresponsive. He was seen at [place] emergency room and then transferred to tertiary facility. at bedside states no etiology was found at that time. Seizure was ruled out. Patient had recent stress test 02/29/2020 which showed no evidence of ischemia. He has a past medical history of hypertension, FREDERICK, COPD. Past Medical History Past Medical History (Chronic Problems): Chronic Problems (Last Updated 02/07/19 @ 07:26 by Tory Peralta) COPD (chronic obstructive pulmonary disease) (Chronic) HTN (hypertension) (Chronic) FREDERICK (obstructive sleep apnea) (Chronic) Emphysema lung (Chronic) Asthma (Chronic) Medical History: Medical History (Last Updated 02/07/19 @ 07:26 by Tory Peralta) COPD (chronic obstructive pulmonary disease) (Chronic) J44.9 HTN (hypertension) (Chronic) I10 FREDERICK (obstructive sleep apnea) (Chronic) G47.33 Emphysema lung (Chronic) J43.9 Asthma (Chronic) J45.909 COPD with acute exacerbation (Acute) J44.1 Hypertensive urgency (Acute) I16.0 Influenza A (Acute) J10.1 Allergies Penicillins Allergy (Verified 04/05/20 14:26) Unknown Home Medications: Ambulatory Orders Medication Instructions Recorded Lisinopril/Hydrochlorothiazide 10 - 12.5 mg PO DAILY 02/28/20 [Lisinopril-Hctz 10-12.5 mg Tab] Albuterol IH (ProAir) [Proair Hfa 1 puff INHALATION Q6H PRN PRN 04/05/20 (SP)Vent Pts] Surgical History: Surgical History (Last Updated 02/07/19 @ 07:27 by Tory Peralta) History of left knee replacement (Resolved) Z96.652 Surgical History: - - Left knee replacement, multiple surgeries left ear Psychiatric History: No pertinent psych hx Lives: Spouse/ Significant Other Smoking Status: Former smoker Alcohol: None Drugs: None - *Family History Maternal Family History: Family History (Last Updated 01/10/19 @ 20:[address] Medardo Talbert DO) Other COPD (chronic obstructive pulmonary disease) History Items: Cancer - Breast Paternal Family History: Family History (Last Updated 01/10/19 @ 20:[address] Medardo Talbert DO) Other COPD (chronic obstructive pulmonary disease) History Items: Cancer - Prostate Review of Systems Constitutional: Denies: Chills, Fever, Weight Change HEENT: Denies: Head Aches, Sinus Congestion, Sinus Drainage Cardiovascular: Reports: Light Headedness, Syncope. Denies: Chest Pain, Palpitations Respiratory: Denies: Cough, Shortness of breath at rest, Sputum production Gastrointestinal: Denies: Abdominal Pain, Nausea, Vomiting Genitourinary: Denies: Dysuria Musculoskeletal: Denies: Joint Pain, Joint Tenderness Skin: Denies: Rash, Wounds Neurological: Denies: Numbness, Tingling, Focal weakness Psychiatric: Denies: Anxiety, Depression, Homicidal Ideations, Suicidal Ideations Hematologic/ Lymphatic: Denies: Easy Bruising, Easy Bleeding VTE Information - Inpt Only VTE Present on Admission: No VTE Mechan Device Prophylaxis: None VTE Pharm Prophylaxis ordered?: Yes - Physical Exam Vitals/I&O's: Vital Signs Temp Pulse Resp BP Pulse Ox 98.5 F 87 18 133/76 H 97 04/05/20 15:26 04/05/20 15:26 04/05/20 15:26 04/05/20 15:26 04/05/20 15:26 Oxygen Delivery Method Room Air Weight: 345 lb 3.902 oz Body Mass Index (BMI) 51.0 Finger Stick Blood Glucose 119 General: Alert, Oriented x3, Cooperative HEENT: Atraumatic, PERRLA, EOMI, Normocephalic Neck: Supple, No JVD, Negative Carotid Bruits Lungs: Clear to auscultation, Diminished Cardiovascular: Regular rate, Regular Rhythm, Normal S1, Normal S2, No murmurs Abdomen: Bowel Sounds Present, Soft, Non Tender, Non-Distended Extremities: No clubbing, No cyanosis, No edema, Capillary Refill Less than 3 Seconds Skin: No rashes, No breakdown Musculoskeletal: No Tenderness to Palpation of Joints or Extremities Neurological: Cranial nerves II-XII grossly intact, Neuro grossly intact Psych/Mental Status: Normal Affect, Appropriate Laboratory Results 04/05/20 14:30: WBC 7.2, RBC 4.81, Hgb 14.9, Hct 45.1, MCV 93.8, MCH 31.0, MCHC 33.0, RDW Std Deviation 43.8, RDW Coeff of Garfield 12.8, Plt Count 193, MPV 11.8, Immature Gran % (Auto) 0.100, Neut % (Auto) 45.4 L, Lymph % (Auto) 39.7, [place] % (Auto) 10.0, Eos % (Auto) 4.2, Baso % (Auto) 0.6, Absolute Neuts (auto) 3.3, Absolute Lymphs (auto) 2.85, Nucleated RBC % 0 04/05/20 14:30: Sodium 139, Potassium 3.8, Chloride 104, Carbon Dioxide 28.0, Anion Gap 7, BUN 15, Creatinine 1.02, Estim Creat Clear Calc 81.83, Est GFR (MDRD) Af Amer 97, Est GFR (MDRD) Non-Af 81, BUN/Creatinine Ratio 14.7, Glucose 111 H, Calcium 8.9, Total Bilirubin 0.30, AST 28, ALT 43, Alkaline Phosphatase 81, Troponin I < 0.015, Total Protein 7.5, Albumin 3.5, Globulin 4.0, Albumin/Globulin Ratio 0.9 04/05/20 15:00: POC Glucose 119 H Current Medications Sodium Chloride () 1,000 mls @ 1,000 mls/hr IV .Q1H ONE Stop: 04/05/20 15:59 Last Admin: 04/05/20 15:22 Dose: 1,000 mls/hr Documented by: Assessment/Plan 1. Syncope, lightheadedness-patient reports symptoms were exacerbated by exertion. Recent stress test without ischemia 02/29/2020. Gated ejection fraction 60%. EKG in ED without acute ischemia. Initial troponin negative. Trend enzymes. Repeat EKG in a.m. Check orthostatic vitals. Given recurrence of exertional symptoms with recent exertional chest pain and now lightheadedness, patient may need to be considered for cardiac catheterization pending further work-up. 2. Hypertension-stable, continue home lisinopril/HCTZ regimen. 3. Chronic COPD-no acute exacerbation 4. FREDERICK-continue home Pap therapy. 5. Morbid obesity-diet and lifestyle modifications encouraged. DVT prophylaxis-Lovenox subcu This patient was seen by BETTE Suazo under the supervision of Dr. Alexander.
[2020-04-05 16:08] LABS: Bacteria 0 SEEN /hpf (None Seen); Mucous, Urine 0 SEEN /hpf (<or=2+); Red Blood Cells-Urine 0 SEEN /hpf (0-5)
[2020-04-05 16:13] LABS: Color, Urine Straw (Yellow); Glucose, Dipstick Normal (Normal); Ketone-Dipstick Negative (Negative); Leukocyte Esterase-Dipstick Negative /ul (Negative); Nitrite-Dipstick Negative (Negative); Occult Blood-Urine Negative /ul (Negative); Protein-Dipstick Negative (Negative); Specific Gravity, Urine 1.015 (1.002-1.030); Urine Bilirubin Dipstick Negative (Negative); Urine Clarity Clear (Clear); Urine Urobilinogen Normal (Normal)
--- NOTE | 2020-04-05 16:13 | ECHOCS_ITS ---
Reason For Study: SYNCOPE Procedure This was a 2D Doppler, Color Flow transthoracic echocardiogram. The exam was of poor technical quality due to body habitus. Contrast injection was performed. Exam performed portable in patient room. Left Ventricle Normal LV size. Left ventricular systolic function is normal. The estimated ejection fraction is 65 %. Stage 1 diastolic dysfunction. No regional wall motion abnormalities noted. Right Ventricle Normal RV size. Normal systolic function. Atria Normal left atrium. Normal right atrium. Mitral Valve Normal mitral valve. Tricuspid Valve The tricuspid valve is not well visualized. Aortic Valve The aortic valve is not well visualized. Pulmonic Valve The pulmonic valve is not well visualized. Great Vessels Normal aortic root. The pulmonary artery is normal size. Normal inferior vena cava. Pericardium/Pleural No pericardial effusion. Medication Diluted definity 3.0ml given slow IV push to enhance endocardial definition. MMode/2D Measurements & Calculations LVIDd: 5.1 cm IVSd: 1.0 cm Ao root diam: 3.8 cm LVIDs: 3.7 cm LVPWd: 1.0 cm RVDd: 4.0 cm FS: 27.4 % LAV(MOD-bp): 49.2 ml LVAd ap4: 39.4 cm2 SV(MOD-sp4): 89.2 ml LAV(MOD-bp) Indexed: 19.1 ml/m2 EDV(MOD-sp4): 143.6 ml LAV(MOD-sp2): 50.1 ml EDV(sp4-el): 150.8 ml LAV(MOD-sp4): 48.8 ml LVAs ap4: 21.2 cm2 ESV(MOD-sp4): 54.4 ml ESV(sp4-el): 55.4 ml EF(MOD-sp4): 62.1 % EF(sp4-el): 63.3 % SV(sp4-el): 95.4 ml LA A4C-A/L_phl: 17.4 cm2 LA dimension(2D): 4.1 cm RA A4 area: 12.8 cm2 Time Measurements MV dec time: 0.26 sec Doppler Measurements & Calculations MV E max javan: 74.9 cm/sec Lat Peak E' Javan: 11.4 cm/sec Med Peak E' Javan: 9.8 cm/sec MV A max javan: 86.6 cm/sec E/E' lat: 6.6 E/E' med: 7.6 MV E/A: 0.86 Ao V2 max: 118.8 cm/sec LV V1 max: 100.4 cm/sec TR max javan: 269.4 cm/sec Ao max P.6 mmHg LV V1 max P.0 mmHg TR max P.0 mmHg Interpretation Summary Normal LV size. Left ventricular systolic function is normal. The estimated ejection fraction is 65 %. Stage 1 diastolic dysfunction. Contrast injection was performed. Ordering Physician: Perri Hermosillo Referring Physician: CARLOS GARCIA Performed By: Leann Garcia, NAY, RVT
--- NOTE | 2020-04-05 16:19 | CDU_ITS ---
Reason For Study: Syncope Rt. Velocities/BP Lt. Velocities/BP Prox CCA 102.1/13.4 cm/sec. Prox CCA 107.2/22.5 cm/sec. Mid CCA 83.8/14.7 cm/sec. Mid CCA 88.8/17.6 cm/sec. Dist CCA 74.7/13.4 cm/sec. Dist CCA 77.7/15.1 cm/sec. Prox ICA 59.7/16.8 cm/sec. Prox ICA 33.3/11.6 cm/sec. Mid ICA 46.5/12.4 cm/sec. Mid ICA 70.2/23.9 cm/sec. Dist ICA 67.4/24.5 cm/sec. Dist ICA 61.7/21.1 cm/sec. Rt. ICA/CCA = 0.8. Lt. ICA/CCA = 0.8. Prox ECA 135.7/9.7 cm/sec. Prox ECA 82.7/9 cm/sec. Rt. Vert. 35.2/6.9 cm/sec. Lt. Vert. 51.3/14.5 cm/sec. Right Extracranial There is intimal thickening but no significant atherosclerotic plaque noted in the right common carotid artery. There is intimal thickening but no significant atherosclerotic plaque noted in the right internal carotid artery. There is no significant atherosclerotic plaque noted in the right external carotid artery. Antegrade flow is noted in the right vertebral artery. Left Extracranial There is intimal thickening but no significant atherosclerotic plaque noted in the left common carotid artery. There is intimal thickening but no significant atherosclerotic plaque noted in the left internal carotid artery. There is intimal thickening but no significant atherosclerotic plaque noted in the left external carotid artery. Antegrade flow is noted in the left vertebral artery. Procedure Carotid Duplex [id number]. Exam performed portable in patient room. Interpretation Summary No hemodynamically significant plaque or stenosis bilateral extracranial internal carotid arteries <50% stenosis bilateral internal carotids <50% stenosis bilateral external carotids Patent, antegrade vertebrals bilaterally Ordering Physician: Perri Hermosillo Referring Physician: Anika Velazco M.D. Performed By: Svitlana Alfaro RVT
[2020-04-05 16:20] LABS: Squamous Epithelial Cells - UA 0-5 SEEN /hpf (0-5)
--- NOTE | 2020-04-05 16:21 | ED.VIS.GEN ---
History of Present Illness Chief Complaint: Weakness Informant: Patient Onset: Today Context: Sudden Onset Narrative: Patient is a 54-year-old male presenting after presyncopal episode. Patient states he was trying to mow the lawn today and had to stop because he was feeling lightheaded. He rested and then back to mowing the lawn. Patient felt lightheaded again so he went inside. He took a shower and was getting ready for work when he suddenly felt very lightheaded. He sat down the couch and is not sure if he passed out or just fell asleep. Patient still does not feel quite right. He still feels lightheaded. Patient notes he has had episodes like this in the past and 1 year ago he was found responsive on the street in the middle of May. Patient just been walking down the street and apparently had a syncopal episode. Patient denies any current chest pain, shortness of breath or difficulty breathing. He states he felt well earlier today. Patient notes he does get lightheaded relatively frequently but is not know why. He states is been at least 10 years since a cardiac catheterization and he is never had a Holter monitor. He denies any other complaints at this time. Past Medical History - Allergies and Home Meds Allergies/Adverse Reactions: Allergies Penicillins Allergy (Verified 04/05/20 14:26) Unknown Past Medical History: - - COPD, emphysema, hypertension, obstructive sleep apnea Surgical History: - - Left knee replacement, multiple surgeries left ear Lives: Spouse/ Significant Other Smoking Status: Former smoker Alcohol: None Drugs: None - Family History Maternal Family History: Family History (Last Updated 01/10/19 @ 20:[address] Medardo Talbert DO) Other COPD (chronic obstructive pulmonary disease) Family History: Reports: Cancer - Breast Paternal Family History: Family History (Last Updated 01/10/19 @ 20:[address] Medardo Talbert DO) Other COPD (chronic obstructive pulmonary disease) Family History: Reports: Cancer - Prostate Review of Systems General: Reports: Malaise, - - Lightheadedness. Denies: Chills, Fever, Sweats Eyes: Denies: Visual changes - bilaterally, Diplopia ENT: Denies: Rhinorrhea, Sore throat Cardiovascular: Denies: Chest pain, Palpitations Respiratory: Reports: Dyspnea. Denies: Cough, Dyspnea on exertion Gastrointestinal: Denies: Abdominal pain, Nausea, Vomiting, Diarrhea, Melena, Hematochezia Genitourinary: Denies: Dysuria, Hematuria, Frequency Musculoskeletal: Denies: Back pain, Extremity Pain Skin: Denies: Rash, Wounds Neurological: Denies: Headache, Weakness, Numbness Physical Exam Vital Signs/Narrative: Vital Signs Temp Pulse Resp BP Pulse Ox 04/05/20 16:00 98.7 F 80 18 139/85 H 97 04/05/20 15:26 98.5 F 87 18 133/76 H 97 04/05/20 15:22 79 14 133/76 H 96 04/05/20 14:26 98.6 F 99 18 141/83 H 95 04/05/20 14:23 98.6 F 99 18 141/83 H 95 Inital Vital Signs reviewed: Yes General: Well nourished, Well developed, Obese, No Acute Distress Head: Normocephalic, Atraumatic Eyes: Perrl, EOMI, - - No nystagmus ENT: No rhinorrhea, TM's clear, Dry mucous membranes Neck: Supple, Nontender, No lymphadenopathy, No JVD Cardiovascular: Regular rate, Regular rhythm, No murmurs Respiratory: No distress, CTA bilaterally, Chest nontender. Negative for: Rhonchi, Wheezing, Decreased Air Movement Abdomen: Soft, Nontender, Nondistended, Normal bowel sounds Back: Nontender, Normal Inspection Extremities: Nontender, No edema Skin: Normal color, No rash Neurological: Alert, Oriented x3, Cranial nerves II-XII grossly intact, Normal Strength, Normal Sensation, - - Normal mentation the patient is a little slow to respond Psychological: Normal affect, Normal Mood Diagnostic/Tx/Re-eval Chest X-Ray - ED: 1 View, Read by ED Physician, Read by Radiologist, No Acute Disease Clinical Impression(s) from Imaging Studies Chest X-Ray 04/05/20 15:20 IMPRESSION: Normal x-ray examination of the chest. Electronically Signed: Bruce Espinosa MD at 16:16 EDT , Service support , Laboratory Data 04/05/20 04/05/20 04/05/20 14:30 14:30 15:00 WBC 7.2 RBC 4.81 Hgb 14.9 Hct 45.1 MCV 93.8 MCH 31.0 MCHC 33.0 RDW Std Deviation 43.8 RDW Coeff of [place] 12.8 Plt Count 193 MPV 11.8 Immature Gran % (Auto) 0.100 Neut % (Auto) 45.4 L Lymph % (Auto) 39.7 [place] % (Auto) 10.0 Eos % (Auto) 4.2 Baso % (Auto) 0.6 Absolute Neuts (auto) 3.3 Absolute Lymphs (auto) 2.85 Nucleated RBC % 0 Sodium 139 Potassium 3.8 Chloride 104 Carbon Dioxide 28.0 Anion Gap 7 BUN 15 Creatinine 1.02 Estim Creat Clear Calc 81.83 Est GFR (MDRD) Af Amer 97 Est GFR (MDRD) Non-Af 81 BUN/Creatinine Ratio 14.7 Glucose 111 H Hemoglobin A1c Calcium 8.9 Magnesium Total Bilirubin 0.30 AST 28 ALT 43 Alkaline Phosphatase 81 Troponin I < 0.015 Total Protein 7.5 Albumin 3.5 Globulin 4.0 Albumin/Globulin Ratio 0.9 Urine Color Urine Clarity Urine pH Ur Specific [place] Urine Protein Urine Glucose (UA) Urine Ketones Urine Occult Blood Urine Nitrite Urine Bilirubin Urine Urobilinogen Ur Leukocyte Esterase Urine RBC Urine WBC Ur Squamous Epith Cells Urine Bacteria Urine Mucus POC Glucose 119 H 04/05/20 04/05/20 04/05/20 15:04 15:04 16:02 WBC RBC Hgb Hct MCV MCH MCHC RDW Std Deviation RDW Coeff of [place] Plt Count MPV Immature Gran % (Auto) Neut % (Auto) Lymph % (Auto) [place] % (Auto) Eos % (Auto) Baso % (Auto) Absolute Neuts (auto) Absolute Lymphs (auto) Nucleated RBC % Sodium Potassium Chloride Carbon Dioxide Anion Gap BUN Creatinine Estim Creat Clear Calc Est GFR (MDRD) Af Amer Est GFR (MDRD) Non-Af BUN/Creatinine Ratio Glucose Hemoglobin A1c 5.5 Calcium Magnesium 2.2 Total Bilirubin AST ALT Alkaline Phosphatase Troponin I Total Protein Albumin Globulin Albumin/Globulin Ratio Urine Color Straw Urine Clarity Clear Urine pH 6.0 Ur Specific [place] 1.015 Urine Protein Negative Urine Glucose (UA) Normal Urine Ketones Negative Urine Occult Blood Negative Urine Nitrite Negative Urine Bilirubin Negative Urine Urobilinogen Normal Ur Leukocyte Esterase Negative Urine RBC 0 SEEN Urine WBC 0-5 SEEN Ur Squamous Epith Cells 0-5 SEEN Urine Bacteria 0 SEEN Urine Mucus 0 SEEN POC Glucose - Rhythm Strip Rhythm Strip: Sinus Rhythm Rate: 83 Ectopy: None - EKG Initial EKG Interpretation: Sinus Rhythm, - - Normal sinus rhythm at a rate of 83 Normal axis Normal intervals Normal ST segments Compared to prior EKG on 02/29/2020 no acute changes - Medical Decision Making Patient is evaluated for presyncope while mowing the lawn today. Patient reportedly became lightheaded every time he tried to mow the lawn. He took a shower and then sat down and became very slow to respond to the family. brought him into the emergency room. Patient had a similar episode a year ago where he was almost unresponsive and found in the middle of the street. They do seem to be related to heat. Patient is not febrile and does not appear to have heat exhaustion. His work-up is largely normal. He is given IV fluids but still feels very lightheaded especially when he tries to ambulate. Will be admitted for further cardiac evaluation. He is agreeable with this plan. He is stable for the general medical floor at time of disposition. ED Disposition - Plan for ED Patient: Disposition: Acute Care [facility] Diagnosis: Lightheadedness
[2020-04-05 16:22] LABS: White Blood Cells 0-5 SEEN /hpf (0-5)
--- NOTE | 2020-04-05 16:28 | NURSING ---
PCU [facility]
[2020-04-05 16:36] LABS: Bedside Glucose 115 mg/dL (70-110)
[2020-04-05 17:14] LABS: Magnesium 2.2 mg/dL (1.6-2.6)
[2020-04-05 17:47] LABS: Hemoglobin A1c 5.5 % (3.8-5.6)
[2020-04-05] MEDS: 0.9% Normal Saline 1,000 ML 100 ML IV (18:22)
[2020-04-05] MEDS: Ipratropium/Albuterol Sulfate 3 ML AMPUL.NEB INHALATION (18:39)
[2020-04-05 19:29] LABS: Thyroid Stim Hormone (TSH) 2.09 uIU/mL (0.358-3.74)
[2020-04-06] VITALS (15 sets, daily range): BP systolic 124–184; BP diastolic 58–95; PULSE 64–90; RESP 16–18; TEMP 36.2–36.7; O2SAT 95–98
[2020-04-06 06:04] LABS: Absolute Lymphocyte Count 2.57 X10^3/uL (0.83-4.51); Absolute Neutrophil Count 3.5 X10^3/uL (2.0-7.7); Basophil# 0.05 X10^3/uL; Basophil% 0.7 % (0-1); Eosinophils% 5.5 % (0-5); Hematocrit 42.4 % (40-54); Hemoglobin 14.1 g/dL (13.0-16.5); Lymphocyte # 2.57 X10^3/ul (4.0); Lymphocyte % 35.5 % (19-41); Mean Corp Hgb Conc 33.3 g/dL (32-36); Mean Corpuscular Hgb 30.9 pg (27.0-32.0); Mean Platelet Vol. 11.7 fl (6.2-12.0); Monocyte# 0.74 X10^3/uL; Monocyte% 10.2 % (0-10); NRBC Flagged by Analyzer 0 % (0-5); Neutrophil # 3.46 X10^3/uL (2.7-7.7); Platelet Count 169 K/mm3 (150-450); RBC Distribution Width CV 12.9 % (11.6-14.6); Red Blood Count 4.56 M/mm3 (4.6-6.2); White Blood Count 7.2 K/mm3 (4.4-11.0)
[2020-04-06 06:34] LABS: Anion Gap 5 (5-15); BUN 13 mg/dL (7-18); BUN/Creat Ratio 13.3 RATIO (10-20); Calcium,Total 8.4 mg/dL (8.5-10.1); Chloride 106 mmol/L (98-107); Cholesterol 130 mg/dL (200); Creatinine, Serum 0.98 mg/dL (0.70-1.30); EST Glomerular Filtration Rate 84 mL/min (>60); Est Glom Filt Rate - Afr Amer 102 mL/min (>60); Estimated Creatinine Clearance 85.17 ml/min; Glucose 91 mg/dL (74-106); High Density Lipoprotein 46 mg/dL; Potassium 3.9 mmol/L (3.5-5.1); Sodium Level 139 mmol/L (136-145); Triglycerides 95 mg/dL; Very Low Density Lipoprotein 19 mg/dL (5-40)
[2020-04-06] MEDS: Ipratropium/Albuterol Sulfate 3 ML AMPUL.NEB INHALATION ×3 (07:23→20:03)
[2020-04-06] MEDS: Aspirin 81 MG TAB.CHEW PO (08:00)
--- NOTE | 2020-04-06 08:45 | CT_ITS ---
STUDY: CT BRAIN WITHOUT CONTRAST REASON FOR EXAM: Male, 54 years old. Syncope RADIATION DOSAGE (If Supplied By Facility): CTDIvol = ( 44.99 ) mGy, DLP = ( 812.98 ) mGycm TECHNIQUE: Transaxial CT imaging of the brain was performed without administration of intravenous contrast material. Individualized dose optimization techniques were used for this CT. COMPARISON: 09/23/2010 FINDINGS: There is no acute bleed or infarct. There are normal white matter tracts. The ventricles are normal in configuration. There is no hydrocephalus. There is mucosal hypertrophy in the bilateral maxillary, sphenoid and ethmoid sinuses. The patient is status post left mastoidectomy. The right mastoid air cells are well aerated. There is no skull fracture. CT/Brain/Head without Contrast IMPRESSION: No acute intracranial abnormality. Sinusitis. Status post left mastoidectomy. Electronically Signed: Kevin Grossman, at 10:38 EDT Tel , Service support ,
[2020-04-06] MEDS: Lisinopril 10 MG Tablet PO (09:12)
[2020-04-06] MEDS: hydroCHLOROthiazide 12.5mg 12.5 MG PO (09:13)
[2020-04-06] MEDS: Enoxaparin 40 MG/0.4 ML Syringe SC (09:13)
--- NOTE | 2020-04-06 11:49 | PN_ITS ---
<Perri Hermosillo - Last Filed: 04/06/20 11:54> Patient Problems: Active and Suspected Problems (Last Updated 02/07/19 @ 07:26 by Tory Peralta) Lightheadedness (Acute) Subjective: Patient seen and examined. Reports small amount of blood in his urine which he has had intermittently in the past as well. Patient continues to be dizzy upon standing and with movement. Reports shortness of breath with minimal activity which he also reports has been ongoing for a long time due to his underlying COPD. - Physical Exam Vitals/I&O's: Vital Signs Temp Pulse Resp BP Pulse Ox 97.3 F L 80 18 161/83 H 96 04/06/20 08:05 04/06/20 11:00 04/06/20 08:05 04/06/20 08:05 04/06/20 08:05 Oxygen Delivery Method Room Air Weight: 338 lb Body Mass Index (BMI) 49.8 Finger Stick Blood Glucose 115 Orthostatic Vital Signs Start: 04/05/20 18:25 Freq: q24h Status: Active Protocol: Activity Type Activity Date Activity User E-Sign Co-Sign Detail Recorded Client Recorded Date Recorded By Document 04/06/20 06:43 KK [id number] 04/06/20 06:50 KK 04/06/20 06:43 Orthostatic Vitals Standing -Blood Pressure (90/60-120/80) 184/95 H -Extremity Use Right Arm -Pulse Rate (60-100) 71 Sitting -Blood Pressure (90/60-120/80) 164/93 H -Extremity Use Right Arm -Pulse Rate (60-100) 73 Lying -Blood Pressure (90/60-120/80) 152/75 H -Extremity Use Right Arm -Pulse Rate (60-100) 64 Intake and Output for Last 24 Hours 04/04/20 04/05/20 04/06/20 23:59 23:59 23:59 Intake Total 1600 / 1600 1240 / 1240 Balance 1600 / 1600 1240 / 1240 General: Alert, Oriented x3, Cooperative HEENT: Atraumatic, PERRLA, EOMI, Normocephalic Neck: Supple, No JVD, Negative Carotid Bruits Lungs: Clear to auscultation, Diminished Cardiovascular: Regular rate, No murmurs Abdomen: Bowel Sounds Present, Soft, Non Tender, Non-Distended, Obese Extremities: No clubbing, No cyanosis, No edema, Capillary Refill Less than 3 Seconds Skin: No rashes, No breakdown Musculoskeletal: No Tenderness to Palpation of Joints or Extremities Neurological: Cranial nerves II-XII grossly intact, Neuro grossly intact Psych/Mental Status: Normal Affect, Appropriate Laboratory Results 04/05/20 14:30: WBC 7.2, RBC 4.81, Hgb 14.9, Hct 45.1, MCV 93.8, MCH 31.0, MCHC 33.0, RDW Std Deviation 43.8, RDW Coeff of [place] 12.8, Plt Count 193, MPV 11.8, Immature Gran % (Auto) 0.100, Neut % (Auto) 45.4 L, Lymph % (Auto) 39.7, [place] % (Auto) 10.0, Eos % (Auto) 4.2, Baso % (Auto) 0.6, Absolute Neuts (auto) 3.3, Absolute Lymphs (auto) 2.85, Nucleated RBC % 0 04/05/20 14:30: Sodium 139, Potassium 3.8, Chloride 104, Carbon Dioxide 28.0, Anion Gap 7, BUN 15, Creatinine 1.02, Estim Creat Clear Calc 81.83, Est GFR (MDRD) Af Amer 97, Est GFR (MDRD) Non-Af 81, BUN/Creatinine Ratio 14.7, Glucose 111 H, Calcium 8.9, Total Bilirubin 0.30, AST 28, ALT 43, Alkaline Phosphatase 81, Troponin I < 0.015, Total Protein 7.5, Albumin 3.5, Globulin 4.0, Albumin/Globulin Ratio 0.9 04/05/20 15:00: POC Glucose 119 H 04/05/20 15:04: Magnesium 2.2 04/05/20 15:04: Hemoglobin A1c 5.5 04/05/20 16:02: Urine Color Straw, Urine Clarity Clear, Urine pH 6.0, Ur Specific [place] 1.015, Urine Protein Negative, Urine Glucose (UA) Normal, Urine Ketones Negative, Urine Occult Blood Negative, Urine Nitrite Negative, Urine Bilirubin Negative, Urine Urobilinogen Normal, Ur Leukocyte Esterase Negative, Urine RBC 0 SEEN, Urine WBC 0-5 SEEN, Ur Squamous Epith Cells 0-5 SEEN, Urine Bacteria 0 SEEN, Urine Mucus 0 SEEN 04/05/20 16:31: POC Glucose 115 H 04/05/20 18:40: TSH 2.09 04/05/20 18:40: Troponin I < 0.015 04/05/20 20:25: Troponin I < 0.015 04/06/20 05:27: Sodium 139, Potassium 3.9, Chloride 106, Carbon Dioxide 28.0, Anion Gap 5, BUN 13, Creatinine 0.98, Estim Creat Clear Calc 85.17, Est GFR (MDRD) Af Amer 102, Est GFR (MDRD) Non-Af 84, BUN/Creatinine Ratio 13.3, Glucose 91, Calcium 8.4 L, Triglycerides 95, Cholesterol 130, LDL Cholesterol 65, VLDL Cholesterol 19, HDL Cholesterol 46 04/06/20 05:27: WBC 7.2, RBC 4.56 L, Hgb 14.1, Hct 42.4, MCV 93.0, MCH 30.9, MCHC 33.3, RDW Std Deviation 44.0 H, RDW Coeff of [place] 12.9, Plt Count 169, MPV 11.7, Immature Gran % (Auto) 0.100, Neut % (Auto) 48.0, Lymph % (Auto) 35.5, [place] % (Auto) 10.2 H, Eos % (Auto) 5.5 H, Baso % (Auto) 0.7, Absolute Neuts (auto) 3.5, Absolute Lymphs (auto) 2.57, Nucleated RBC % 0 04/06/20 11:34: Total PSA Pending Current Medications Acetaminophen (Tylenol) 650 mg PO Q6H PRN PRN PRN Reason: Pain Score 1-10/Temp > 100.7 F Albuterol Sulfate (Ventolin Aerosols) 2.5 mg INHALATION Q2H PRN PRN PRN Reason: SOB/Wheezing Albuterol/Ipratropium (Duoneb) 3 ml INHALATION Q6HWA.RT [facility] Last Admin: 04/06/20 07:23 Dose: 3 ml Documented by: Aspirin (Aspirin, Baby) 81 mg PO DAILY@0800 [facility] Last Admin: 04/06/20 08:00 Dose: 81 mg Documented by: Dextrose (D50w Syringe) 0 gm IV X1 PRN; Protocol PRN Reason: Hypoglycemia Enoxaparin Sodium (Lovenox) 40 mg SC DAILY [facility] Last Admin: 04/06/20 09:13 Dose: 40 mg Documented by: Glucagon () 1 mg IM .X1 PRN PRN Reason: Hypoglycemia Hydralazine HCl (Apresoline Iv) 10 mg IV Q4H PRN PRN PRN Reason: SBP > 160 Hydrochlorothiazide () 12.5 mg PO DAILY [facility] Last Admin: 04/06/20 09:13 Dose: 12.5 mg Documented by: Lisinopril (Zestril) 10 mg PO DAILY [facility] Last Admin: 04/06/20 09:12 Dose: 10 mg Documented by: Meclizine HCl (Antivert) 25 mg PO TID PRN PRN PRN Reason: DIZZINESS Morphine Sulfate () 2 mg IV Q4H PRN PRN PRN Reason: cardiac pain, pain 6-10/10 Nitroglycerin (Nitrostat) 0.4 mg SUBLINGUAL Q5M PRN PRN Reason: CARDIAC/CHEST PAIN Ondansetron HCl (Zofran) 4 mg IV Q8H PRN PRN PRN Reason: NAUSEA/VOMITING Sodium Chloride () 10 - 40 ml IV UD PRN PRN Reason: SALINE FLUSH Medical Necessity - Tobacco Use Smoking Status: Former smoker Tobacco Use: Cigarettes Assessment/Plan All Active Problems (Last Updated 02/07/19 @ 07:26 by Tory Peralta) Lightheadedness (Acute) 1. Syncope, lightheadedness/dizziness upon standing- Recent stress test without ischemia 02/29/2020. Gated ejection fraction 60%. EKG in ED without acute ischemia. Troponin negative. Orthostatic vitals negative. Echocardiogram and carotid ultrasound pending. Possible vertigo given dizziness reproducible. Initiated on meclizine and PT eval ordered. 2. Hypertension-stable, continue home lisinopril/HCTZ regimen. 3. Chronic COPD-no acute exacerbation. As needed albuterol aerosols. 4. FREDERICK-continue home Pap therapy. 5. Morbid obesity-diet and lifestyle modifications encouraged. DVT prophylaxis-Lovenox subcu This patient was seen by BETTE Suazo under the supervision of Dr. Talbert. <Medardo Talbert - Last Filed: 04/06/20 16:04> - Physical Exam Vitals/I&O's: Vital Signs Temp Pulse Resp BP Pulse Ox 36.2 C L 84 18 124/58 H 98 04/06/20 14:05 04/06/20 15:00 04/06/20 14:05 04/06/20 14:05 04/06/20 14:05 Oxygen Delivery Method Room Air Weight: 153.3 kg Body Mass Index (BMI) 49.8 Finger Stick Blood Glucose 115 Orthostatic Vital Signs Start: 04/05/20 18:25 Freq: q24h Status: Active Protocol: Activity Type Activity Date Activity User E-Sign Co-Sign Detail Recorded Client Recorded Date Recorded By Document 04/06/20 06:43 DURAN [id number] 04/06/20 06:50 KK 04/06/20 06:43 Orthostatic Vitals Standing -Blood Pressure (90/60-120/80) 184/95 H -Extremity Use Right Arm -Pulse Rate (60-100) 71 Sitting -Blood Pressure (90/60-120/80) 164/93 H -Extremity Use Right Arm -Pulse Rate (60-100) 73 Lying -Blood Pressure (90/60-120/80) 152/75 H -Extremity Use Right Arm -Pulse Rate (60-100) 64 Intake and Output for Last 24 Hours 04/04/20 04/05/20 04/06/20 23:59 23:59 23:59 Intake Total 1600 / 1600 1480 / 1480 Balance 1600 / 1600 1480 / 1480 General: Alert, Cooperative HEENT: Atraumatic, EOMI - Bilateral horizontal nystagmus but without reproducible dizziness., Normocephalic Lungs: Clear to auscultation, Diminished Cardiovascular: Regular rate, No murmurs Abdomen: Bowel Sounds Present, Soft, Non Tender, Non-Distended Extremities: No clubbing, No cyanosis, No edema Skin: No rashes, No breakdown Psych/Mental Status: Normal Affect, Appropriate Laboratory Results 04/05/20 15:04: Magnesium 2.2 04/05/20 15:04: Hemoglobin A1c 5.5 04/05/20 16:02: Urine Color Straw, Urine Clarity Clear, Urine pH 6.0, Ur Specific [place] 1.015, Urine Protein Negative, Urine Glucose (UA) Normal, Urine Ketones Negative, Urine Occult Blood Negative, Urine Nitrite Negative, Urine Bilirubin Negative, Urine Urobilinogen Normal, Ur Leukocyte Esterase Negative, Urine RBC 0 SEEN, Urine WBC 0-5 SEEN, Ur Squamous Epith Cells 0-5 SEEN, Urine Bacteria 0 SEEN, Urine Mucus 0 SEEN 04/05/20 16:31: POC Glucose 115 H 04/05/20 18:40: TSH 2.09 04/05/20 18:40: Troponin I < 0.015 04/05/20 20:25: Troponin I < 0.015 04/06/20 05:27: Sodium 139, Potassium 3.9, Chloride 106, Carbon Dioxide 28.0, Anion Gap 5, BUN 13, Creatinine 0.98, Estim Creat Clear Calc 85.17, Est GFR (MDRD) Af Amer 102, Est GFR (MDRD) Non-Af 84, BUN/Creatinine Ratio 13.3, Glucose 91, Calcium 8.4 L, Triglycerides 95, Cholesterol 130, LDL Cholesterol 65, VLDL Cholesterol 19, HDL Cholesterol 46 04/06/20 05:27: WBC 7.2, RBC 4.56 L, Hgb 14.1, Hct 42.4, MCV 93.0, MCH 30.9, MCHC 33.3, RDW Std Deviation 44.0 H, RDW Coeff of [place] 12.9, Plt Count 169, MPV 11.7, Immature Gran % (Auto) 0.100, Neut % (Auto) 48.0, Lymph % (Auto) 35.5, [place] % (Auto) 10.2 H, Eos % (Auto) 5.5 H, Baso % (Auto) 0.7, Absolute Neuts (auto) 3.5, Absolute Lymphs (auto) 2.57, Nucleated RBC % 0 04/06/20 11:34: Total PSA 0.53 Current Medications Acetaminophen (Tylenol) 650 mg PO Q6H PRN PRN PRN Reason: Pain Score 1-10/Temp > 100.7 F Albuterol Sulfate (Ventolin Aerosols) 2.5 mg INHALATION Q2H PRN PRN PRN Reason: SOB/Wheezing Albuterol/Ipratropium (Duoneb) 3 ml INHALATION Q6HWA.RT [facility] Last Admin: 04/06/20 13:37 Dose: 3 ml Documented by: Aspirin (Aspirin, Baby) 81 mg PO DAILY@0800 [facility] Last Admin: 04/06/20 08:00 Dose: 81 mg Documented by: Dextrose (D50w Syringe) 0 gm IV X1 PRN; Protocol PRN Reason: Hypoglycemia Enoxaparin Sodium (Lovenox) 40 mg SC DAILY [facility] Last Admin: 04/06/20 09:13 Dose: 40 mg Documented by: Glucagon () 1 mg IM .X1 PRN PRN Reason: Hypoglycemia Hydralazine HCl (Apresoline Iv) 10 mg IV Q4H PRN PRN PRN Reason: SBP > 160 Hydrochlorothiazide () 12.5 mg PO DAILY [facility] Last Admin: 04/06/20 09:13 Dose: 12.5 mg Documented by: Lisinopril (Zestril) 10 mg PO DAILY [facility] Last Admin: 04/06/20 09:12 Dose: 10 mg Documented by: Meclizine HCl (Antivert) 25 mg PO TID PRN PRN PRN Reason: DIZZINESS Last Admin: 04/06/20 14:56 Dose: 25 mg Documented by: Morphine Sulfate () 2 mg IV Q4H PRN PRN PRN Reason: cardiac pain, pain 6-10/10 Nitroglycerin (Nitrostat) 0.4 mg SUBLINGUAL Q5M PRN PRN Reason: CARDIAC/CHEST PAIN Ondansetron HCl (Zofran) 4 mg IV Q8H PRN PRN PRN Reason: NAUSEA/VOMITING Sodium Chloride () 10 - 40 ml IV UD PRN PRN Reason: SALINE FLUSH Assessment/Plan Patient seen and examined independently. Data reviewed. I agree with the above note by the nurse practitioner. 1. Syncope: Patient was experiencing vertigo. Vertigo seem to be position dependent, upon standing. Echo unremarkable, head CT unremarkable. Patient did have some nystagmus with vertical gaze. Concern is for benign paroxysmal positional vertigo. Start as needed meclizine, have physical therapy evaluate for vestibular rehab. OBSV E&M: [id number] Subsequent observation care L2
[2020-04-06 12:14] LABS: PSA,Total- Diagnostic 0.53 ng/mL (0.0-4.0)
[2020-04-06] MEDS: Meclizine HCl 25 MG Tablet PO (14:56)
[2020-04-07] VITALS (11 sets, daily range): BP systolic 118–157; BP diastolic 58–89; PULSE 68–92; RESP 16–18; TEMP 36.6–36.8; O2SAT 92–96
[2020-04-07] MEDS: Ipratropium/Albuterol Sulfate 3 ML AMPUL.NEB INHALATION ×2 (06:49→13:22)
[2020-04-07] MEDS: hydroCHLOROthiazide 12.5mg 12.5 MG PO (08:55)
[2020-04-07] MEDS: Aspirin 81 MG TAB.CHEW PO (08:55)
[2020-04-07] MEDS: Enoxaparin 40 MG/0.4 ML Syringe SC (08:55)
[2020-04-07] MEDS: Lisinopril 10 MG Tablet PO (08:56)
[2020-04-07] MEDS: Meclizine HCl 25 MG Tablet PO (08:56)
--- NOTE | 2020-04-07 11:37 | DCINST_ITS ---
- Discharge Diagnoses Current Active Problems: Current Active and Chronic Problems (Last Updated 02/07/19 @ 07:26 by Tory Peralta) 1. Syncope 2. Possible BPPV You will use the following diet at home:: Calorie/Carbohydrate Controlled (specify 1200, 1400, etc), Cardiac Discharge Activity: Return to Normal Activity Call your doctor if you observe: Shortness of breath, Dizziness, Fainting spells, Chest pain Allergies/Adverse Reactions: Allergies Penicillins Allergy (Verified 04/05/20 14:26) Unknown Medications to take at Discharge Albuterol IH (ProAir) [Proair Hfa] 1 puff INHALATION Q6H PRN PRN 04/05/20 Lisinopril [Zestril] 10 mg PO DAILY #30 tab 04/07/20 Meclizine HCl [Antivert] 25 mg PO TID PRN PRN #20 tab 04/07/20 The following prescriptions were given: Meclizine HCl [Antivert] 25 mg PO TID PRN PRN #20 tab PRN Reason: Dizziness Transmission Status: [facility] to [facility] Lisinopril [Zestril] 10 mg PO DAILY #30 tab Transmission Status: Pending to [facility] Primary Care Physician: Anika Velazco MD [Primary Care Provider] - Please follow up with your Primary Care Physician in: 3-5 Days Test Results: Test results from this visit will be discussed in further detail at your follow- up appointment, if applicable. Please Follow Up With: Medardo Ferreira MD - ENT When: 1 Week Please Follow Up With: Mikey Bernabe MD When: 1 Week, may see [employer] Proposed Discharge Date: 04/07/20
--- NOTE | 2020-04-07 11:46 | PHA.DC.MR ---
Pharmacy Service has performed discharge medication reconciliation for this patient. No new medications issued at time of discharge. Medications reviewed are from previously reported home medications. The patient's discharge medication list was reviewed for discrepancies and discrepancies were resolved. Home Medications Lisinopril/Hydrochlorothiazide [Lisinopril-Hctz 10-12.5 mg Tab] 10 - 12.5 mg PO DAILY 02/28/20 Albuterol IH (ProAir) [Proair Hfa (SP)Vent Pts] 1 puff INHALATION Q6H PRN PRN 04/05/20
--- NOTE | 2020-04-07 13:33 | DS.PCM_ITS ---
<Perri Hermosillo - Last Filed: 04/07/20 13:41> Discharge Date and Diagnosis Date of Admission: 04/05/20 Date of Discharge: 04/07/20 - Primary Discharge Diagnosis Acute Problems: Active Problems (Last Updated 02/07/19 @ 07:26 by Tory Peralta) 1. Syncope, lightheadedness/dizziness, possible BPPV 2. Hypertension 3. Chronic Asthma 4. FREDERICK 5. Morbid obesity - Secondary Discharge Diagnosis Chronic Problems: Chronic Problems (Last Updated 02/07/19 @ 07:26 by Tory Peralta) COPD (chronic obstructive pulmonary disease) (Chronic) HTN (hypertension) (Chronic) FREDERICK (obstructive sleep apnea) (Chronic) Emphysema lung (Chronic) Asthma (Chronic) Hospital Course and Treatment Imaging Results: Diagnostic Data Chest X-Ray 04/05/20 15:20 IMPRESSION: Normal x-ray examination of the chest. Electronically Signed: Bruce Espinosa MD at 16:16 EDT , Service support , Brain CT 04/06/20 08:45 IMPRESSION: No acute intracranial abnormality. Sinusitis. Status post left mastoidectomy. Electronically Signed: Kevin Grossman at 10:38 EDT Tel , Service support , Operations: None Procedures: 2-D Echocardiogram Summary of Care Provided: The patient is a 54 year old M admitted 04/05/2020 due to syncope. 1. Syncope, lightheadedness/dizziness upon standing- Recent stress test without ischemia 02/29/2020. Gated ejection fraction 60%. EKG in ED without acute ischemia. Troponin negative. Orthostatic vitals negative. Echocardiogram demonstrated an EF of 65%, stage I diastolic dysfunction. Possible vertigo given dizziness reproducible with movement. Symptoms improved with meclizine. Recommend follow-up with ENT as outpatient for vestibular therapy. Follow-up with primary care physician in 1 week. 2. Hypertension-home combination lisinopril/HCTZ regimen discontinued and patient will continue lisinopril 10 mg daily only with further titration pending further outpatient monitoring.. 3. Chronic COPD vs asthma?-no acute exacerbation. Patient had PFTs February 2019 which demonstrated fully reversible mild large airways obstructive ventilatory defect in a pattern consistent with asthma. Patient reports a history of COPD however this is not evident based on PFTs. Patient has not had recent follow-up with pulmonary medicine. Patient reports ongoing dyspnea with exertion. Ambulatory pulse ox completed prior to discharge and oxygen has remained stable on room air. Follow-up with pulmonary medicine in 1 week upon discharge. 4. FREDERICK-continue home Pap therapy. Noncompliant with therapy. 5. Morbid obesity-diet and lifestyle modifications encouraged. General: Alert, Oriented x3, Cooperative HEENT: Atraumatic, PERRLA, EOMI, Normocephalic Neck: Supple, No JVD, Negative Carotid Bruits Lungs: Clear to auscultation, Diminished Cardiovascular: Regular rate, No murmurs Abdomen: Bowel Sounds Present, Soft, Non Tender, Non-Distended, Obese Extremities: No clubbing, No cyanosis, No edema, Capillary Refill Less than 3 Seconds Skin: No rashes, No breakdown Musculoskeletal: No Tenderness to Palpation of Joints or Extremities Neurological: Cranial nerves II-XII grossly intact, Neuro grossly intact Psych/Mental Status: Normal Affect, Appropriate Patient seen and examined prior to discharge. Physical assessment as noted above. Patient is stable for discharge with follow up recommendations as noted above. This patient was seen by BETTE Suazo under the supervision of Dr. Talbert. - Physical Exam Vitals/I&O's: Vital Signs Temp Pulse Resp BP Pulse Ox 98.0 F 90 18 118/58 L 92 04/07/20 08:48 04/07/20 13:22 04/07/20 13:22 04/07/20 08:48 04/07/20 13:22 Oxygen Delivery Method Room Air Weight: 337 lb 15.498 oz Body Mass Index (BMI) 49.8 Finger Stick Blood Glucose 115 Orthostatic Vital Signs Start: 04/05/20 18:25 Freq: q24h Status: Active Protocol: Activity Type Activity Date Activity User E-Sign Co-Sign Detail Recorded Client Recorded Date Recorded By Document 04/07/20 06:12 [facility] [id number] 04/07/20 06:18 [facility] 04/07/20 06:12 Orthostatic Vitals Standing -Blood Pressure (90/60-120/80) 157/86 H -Extremity Use Right Arm -Pulse Rate (60-100) 81 Sitting -Blood Pressure (90/60-120/80) 147/89 H -Extremity Use Right Arm -Pulse Rate (60-100) 78 Lying -Blood Pressure (90/60-120/80) 143/73 H -Extremity Use Right Arm -Pulse Rate (60-100) 71 Intake and Output for Last 24 Hours 04/05/20 04/06/20 04/07/20 23:59 23:59 23:59 Intake Total 1600 / 1600 2320 / 2320 600 / 600 Balance 1600 / 1600 2320 / 2320 600 / 600 Current Medications Acetaminophen (Tylenol) 650 mg PO Q6H PRN PRN PRN Reason: Pain Score 1-10/Temp > 100.7 F Albuterol Sulfate (Ventolin Aerosols) 2.5 mg INHALATION Q2H PRN PRN PRN Reason: SOB/Wheezing Albuterol/Ipratropium (Duoneb) 3 ml INHALATION Q6HWA.RT [facility] Last Admin: 04/07/20 13:22 Dose: 3 ml Documented by: Aspirin (Aspirin, Baby) 81 mg PO DAILY@0800 [facility] Last Admin: 04/07/20 08:55 Dose: 81 mg Documented by: Dextrose (D50w Syringe) 0 gm IV X1 PRN; Protocol PRN Reason: Hypoglycemia Enoxaparin Sodium (Lovenox) 40 mg SC DAILY [facility] Last Admin: 04/07/20 08:55 Dose: 40 mg Documented by: Glucagon () 1 mg IM .X1 PRN PRN Reason: Hypoglycemia Hydralazine HCl (Apresoline Iv) 10 mg IV Q4H PRN PRN PRN Reason: SBP > 160 Hydrochlorothiazide () 12.5 mg PO DAILY [facility] Last Admin: 04/07/20 08:55 Dose: 12.5 mg Documented by: Lisinopril (Zestril) 10 mg PO DAILY [facility] Last Admin: 04/07/20 08:56 Dose: 10 mg Documented by: Meclizine HCl (Antivert) 25 mg PO TID PRN PRN PRN Reason: DIZZINESS Last Admin: 04/07/20 08:56 Dose: 25 mg Documented by: Morphine Sulfate () 2 mg IV Q4H PRN PRN PRN Reason: cardiac pain, pain 6-10/10 Nitroglycerin (Nitrostat) 0.4 mg SUBLINGUAL Q5M PRN PRN Reason: CARDIAC/CHEST PAIN Ondansetron HCl (Zofran) 4 mg IV Q8H PRN PRN PRN Reason: NAUSEA/VOMITING Sodium Chloride () 10 - 40 ml IV UD PRN PRN Reason: SALINE FLUSH Discharge Diet: Low fat/ Low Cholesterol, 1800 Calorie Control Diet Discharge Activity: Return to Normal Activity Call your doctor if you observe: Shortness of breath, Dizziness, Fainting spells, Chest pain Home Medications: Medications to take at Discharge Albuterol IH (ProAir) [Proair Hfa] 1 puff INHALATION Q6H PRN PRN 04/05/20 Lisinopril [Zestril] 10 mg PO DAILY #30 tab 04/07/20 Meclizine HCl [Antivert] 25 mg PO TID PRN PRN #20 tab 04/07/20 Following Prescrptions Were Given to Patient: Meclizine HCl [Antivert] 25 mg PO TID PRN PRN #20 tab PRN Reason: Dizziness Transmission Status: Received by [id number] Lisinopril [Zestril] 10 mg PO DAILY #30 tab Transmission Status: Received by [id number] Primary Care Physician: Anika Velazco MD [Primary Care Provider] - Please follow up with your Primary Care Physician in: 3-5 Days Please Follow Up With: Medardo Ferreira MD - ENT When: 1 Week Please Follow Up With: Mikey Bernabe MD When: 1 Week, 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 Disposition: Home Minutes spent on discharge:: 35 Patient Condition:: Stable Medical Necessity - Tobacco Use Smoking Status: Former smoker Tobacco Use: Cigarettes Meaningful Use Info Meaningful Use Diagnoses (Choose all that apply): None applicable <Medardo Talbert - Last Filed: 04/07/20 14:24> Discharge Date and Diagnosis - Secondary Discharge Diagnosis Chronic Problems: Chronic Problems (Last Updated 02/07/19 @ 07:26 by Tory Peralta) COPD (chronic obstructive pulmonary disease) (Chronic) HTN (hypertension) (Chronic) FREDERICK (obstructive sleep apnea) (Chronic) Emphysema lung (Chronic) Asthma (Chronic) Hospital Course and Treatment Operations: None Procedures: 2-D Echocardiogram Summary of Care Provided: Patient seen and examined independently. Data reviewed. I agree with the above note by the nurse practitioner. The patient is a 54 year old M presents with dizziness and passing out. Patient underwent work-up including echocardiogram and head CT that were unremarkable. Clinically it felt to be vertigo given the patient's symptoms were worse with position change and his orthostatic vital signs were negative. Patient did have some bilateral going nystagmus with lateral gaze. Patient was started on meclizine and did have some subjective improvement. Discussed with the patient that this could be happen again could be very severe. Reassurance is provided to the patient and overall is feeling better and will be discharged home. [] - Physical Exam Vitals/I&O's: Vital Signs Temp Pulse Resp BP Pulse Ox 36.7 C 90 18 118/58 L 92 04/07/20 08:48 04/07/20 13:22 04/07/20 13:22 04/07/20 08:48 04/07/20 13:22 Oxygen Delivery Method Room Air Weight: 153.3 kg Body Mass Index (BMI) 49.8 Finger Stick Blood Glucose 115 Orthostatic Vital Signs Start: 04/05/20 18:25 Freq: q24h Status: Active Protocol: Activity Type Activity Date Activity User E-Sign Co-Sign Detail Recorded Client Recorded Date Recorded By Document 04/07/20 06:12 [facility] [id number] 04/07/20 06:18 [facility] 04/07/20 06:12 Orthostatic Vitals Standing -Blood Pressure (90/60-120/80) 157/86 H -Extremity Use Right Arm -Pulse Rate (60-100) 81 Sitting -Blood Pressure (90/60-120/80) 147/89 H -Extremity Use Right Arm -Pulse Rate (60-100) 78 Lying -Blood Pressure (90/60-120/80) 143/73 H -Extremity Use Right Arm -Pulse Rate (60-100) 71 Intake and Output for Last 24 Hours 04/05/20 04/06/20 04/07/20 23:59 23:59 23:59 Intake Total 1600 / 1600 2320 / 2320 600 / 600 Balance 1600 / 1600 2320 / 2320 600 / 600 General: Alert, No apparent distress HEENT: Atraumatic, Normocephalic Oral: Moist Mucosa, No Gingival or Mucosal Lesions/ Ulcerations Neck: No Nodes, Thyroid Normal Size and Texture Lungs: Clear to auscultation, Normal air movement, No rhonchi, No wheeze Cardiovascular: Regular rate, Regular Rhythm, Normal S1, Normal S2 Abdomen: Bowel Sounds Present, Soft, Non Tender, Non-Distended Current Medications Acetaminophen (Tylenol) 650 mg PO Q6H PRN PRN PRN Reason: Pain Score 1-10/Temp > 100.7 F Albuterol Sulfate (Ventolin Aerosols) 2.5 mg INHALATION Q2H PRN PRN PRN Reason: SOB/Wheezing Albuterol/Ipratropium (Duoneb) 3 ml INHALATION Q6HWA.RT [facility] Last Admin: 04/07/20 13:22 Dose: 3 ml Documented by: Aspirin (Aspirin, Baby) 81 mg PO DAILY@0800 [facility] Last Admin: 04/07/20 08:55 Dose: 81 mg Documented by: Dextrose (D50w Syringe) 0 gm IV X1 PRN; Protocol PRN Reason: Hypoglycemia Enoxaparin Sodium (Lovenox) 40 mg SC DAILY [facility] Last Admin: 04/07/20 08:55 Dose: 40 mg Documented by: Glucagon () 1 mg IM .X1 PRN PRN Reason: Hypoglycemia Hydralazine HCl (Apresoline Iv) 10 mg IV Q4H PRN PRN PRN Reason: SBP > 160 Hydrochlorothiazide () 12.5 mg PO DAILY [facility] Last Admin: 04/07/20 08:55 Dose: 12.5 mg Documented by: Lisinopril (Zestril) 10 mg PO DAILY [facility] Last Admin: 04/07/20 08:56 Dose: 10 mg Documented by: Meclizine HCl (Antivert) 25 mg PO TID PRN PRN PRN Reason: DIZZINESS Last Admin: 04/07/20 08:56 Dose: 25 mg Documented by: Morphine Sulfate () 2 mg IV Q4H PRN PRN PRN Reason: cardiac pain, pain 6-10/10 Nitroglycerin (Nitrostat) 0.4 mg SUBLINGUAL Q5M PRN PRN Reason: CARDIAC/CHEST PAIN Ondansetron HCl (Zofran) 4 mg IV Q8H PRN PRN PRN Reason: NAUSEA/VOMITING Sodium Chloride () 10 - 40 ml IV UD PRN PRN Reason: SALINE FLUSH Discharge Diet: Low fat/ Low Cholesterol, 1800 Calorie Control Diet Call your doctor if you observe: Shortness of breath, Dizziness, Fainting spells Disposition: Home Minutes spent on discharge:: 35 Patient Condition:: Stable Medical Necessity - Tobacco Use Smoking Status: Former smoker Tobacco Use: Cigarettes Meaningful Use Info Meaningful Use Diagnoses (Choose all that apply): None applicable OBSV E&M: 31280 Observation care discharge
--- NOTE | 2020-04-07 14:56 | NURSING ---
Attempted to updated patient's about discharge. No answer. Message left on voicemail to return call.
[2020-04-07 15:22] LABS: Bacteria 0 SEEN /hpf (None Seen); Mucous, Urine 0 SEEN /hpf (<or=2+); Red Blood Cells-Urine 0 SEEN /hpf (0-5); Squamous Epithelial Cells - UA 0 SEEN /hpf (0-5); White Blood Cells 0 SEEN /hpf (0-5)
[2020-04-07 15:25] LABS: Color, Urine Straw (Yellow); Glucose, Dipstick Normal (Normal); Ketone-Dipstick Negative (Negative); Leukocyte Esterase-Dipstick Negative /ul (Negative); Nitrite-Dipstick Negative (Negative); Occult Blood-Urine Negative /ul (Negative); Protein-Dipstick Negative (Negative); Urine Bilirubin Dipstick Negative (Negative); Urine Clarity Clear (Clear); Urine Urobilinogen Normal (Normal); Urine pH 6.5 (5.0 - 8.0)
== END 2020-04-07 11:37 | disposition home or self-care (01) ==
LOC: ED 15:18 → PCU 20:21
PROVIDERS: Nurse Practitioner Family; Admitting Provider Family Medicine; Emergency Provider Emergency Medicine; PCP Internal Medicine
DX: R55 Syncope and collapse (principal); I10 Essential (primary) hypertension; G47.33 Obstructive sleep apnea (adult) (pediatric); Z79.899 Other long term (current) drug therapy; J44.9 Chronic obstructive pulmonary disease, unspecified; Z87.891 Personal history of nicotine dependence; E66.01 Morbid (severe) obesity due to excess calories; Z68.43 Body mass index [BMI] 50.0-59.9, adult; E78.5 Hyperlipidemia, unspecified; Z91.19 Patient's noncompliance with other medical treatment and regimen
CPT/HCPCS: 36415; 70450; 71045; 80048; 80053; 80061; 81001; 82962; 83036; 83735; 84153; 84443; 84484; 85025; 93005; 93306; 93880; 94640; 96360; 96361; 96372; 97162; 97802; 99218; 99285; J7030; Q9957; A4216; C8929; G0378

== ENCOUNTER 2020-06-17 21:00 | Emergency (ER) | payer MEDICAID, SELFPAY ==
[2020-04-05 17:40] VITALS: BMI 49.8
[2020-06-17 21:01] VITALS: BP 181/93; PULSE 77; RESP 20; TEMP 36.2; O2SAT 96; BMI 49.2
--- NOTE | 2020-06-17 21:28 | ED.DCSUM_ITS ---
History of Present Illness Chief Complaint: Dental Informant: Patient Onset: Weeks - 2 weeks Context: Sudden Onset Timing: Continuous Quality: Pain Location: Tooth #12 and 13 Current Severity: Mild Maximum Severity: Severe Worsened by: Cold and hot liquid Relieved by: - - Nothing Associated Symptoms: Hot, Cold Narrative: Patient is a 54-year-old male with history hypertension and allergy to penicillin who presents with dental pain that started 2 weeks ago. He reports exacerbation with cold and hot liquids. He has not seen a dentist in years. He denies facial swelling or redness. He denies difficulty opening closing his mouth. He denies drooling or difficulty breathing. He has no history of rheumatic heart disease, SBE, being immune suppressed or valvular heart disease. Prior similar symptoms: No Recent Illness/Hospitalization: No - Past Medical History (1) Asthma Status: Chronic (2) COPD (chronic obstructive pulmonary disease) Status: Chronic (3) HTN (hypertension) Status: Chronic (4) FREDERICK (obstructive sleep apnea) Status: Chronic Past Medical History - Allergies and Home Meds Allergies/Adverse Reactions: Allergies Penicillins Allergy (Verified 04/05/20 14:26) Unknown Primary Care Physician: Anika Velazco MD [Primary Care Provider] - Prior records reviewed: Yes Surgical History: - - Left knee replacement, multiple surgeries left ear Lives: Alone Smoking Status: Former smoker Alcohol: None Drugs: None - Family History Maternal Family History: Family History (Last Updated 01/10/19 @ 20:[address] Medardo Talbert DO) Other COPD (chronic obstructive pulmonary disease) Family History: Reports: Cancer - Breast Paternal Family History: Family History (Last Updated 01/10/19 @ 20:[address] Medardo Talbert DO) Other COPD (chronic obstructive pulmonary disease) Family History: Reports: Cancer - Prostate Review of Systems General: Denies: Chills, Fever, Malaise, Sweats, Weight loss Eyes: Denies: Visual changes - bilaterally, Blurred Vision - bilaterally ENT: Reports: - - Dental pain. Denies: Bilateral ear pain, Rhinorrhea, Sore throat Cardiovascular: Denies: Chest pain Respiratory: Denies: Dyspnea Gastrointestinal: Denies: Nausea, Vomiting Musculoskeletal: Denies: Myalgias, Arthralgias, Neck pain Skin: Denies: Rash Neurological: Denies: Headache, Weakness, Parasthesia Hematologic: Denies: Easy bruising, Easy bleeding Physical Exam Vital Signs/Narrative: Vital Signs Temp Pulse Resp BP Pulse Ox 06/17/20 21:01 97.2 F L 77 20 H 181/93 H 96 Inital Vital Signs reviewed: Yes General: Well nourished, Well developed, Obese Head: Normocephalic, Atraumatic ENT: Moist mucous membranes, No nasal trauma, No rhinorrhea, TM's clear. Negative for: Nasal congestion, Sinus tenderness Mouth/Throat: Normal inspection lips/gums, Normal oral mucosa, Normal posterior oropharynx, No sublingual edema, Normal Stensen's duct, Focal dental decay, Gingivitis, Tenderness on tooth percussion - Tooth #12 and 13. Negative for: No dental tenderness, Apthous ulcer, Dental trauma, Dental avulsion, Dentral fracture, Filling loss, Focal gum swelling, Trismus Neck: Supple, No lymphadenopathy, Nontender, No JVD, - - Trachea is midline. There is no inspiratory expiratory stridor. Cardiovascular: Regular rate, Regular rhythm, No murmurs, Normal S1, Normal S2 Respiratory: No distress, CTA bilaterally Extremities: Nontender, No edema Skin: Normal color, No rash Neurological: Alert, Oriented x3, Cranial nerves II-XII grossly intact Psychological: Normal affect Diagnostic/Tx/Re-eval - Medical Decision Making With patient complaint of sensitivity to hot and cold liquids concern he has a reversible pulpitis. He does have dental caries. Suspect he has apical abscess. Since he is allergic penicillin he was treated with clindamycin and received NSAID and opiate analgesia as well. He was instructed follow-up with his dentist. ED Disposition - Plan for ED Patient: Disposition: Home or Assisted Living Diagnosis: Symptomatic irreversible pulpitis, Dental caries extending into dentine, Periapical abscess Instructions: ED ABSCESS DENTAL, ED CAVITY Dental Prescriptions: Clindamycin HCl [Cleocin] 300 mg PO Q6H #28 cap Transmission Status: Pending to [facility] Naproxen [Naprosyn] 500 mg PO BID #14 tab Transmission Status: Pending to [facility] Hydrocodone Bitart/Apap 5-325 [Avilla 5MG-325MG] 1 tablet PO Q6H PRN PRN 3 Days #10 tablet PRN Reason: Pain Transmission Status: Received by [facility] Referrals: Anika Velazco MD [Primary Care Provider] -
[2020-06-17] MEDS: HYDROcodone Bitartrate/Apap 5/325 Tablet PO (21:48)
[2020-06-17] MEDS: Clindamycin HCl 150 MG Capsule 300 MG PO (21:48)
[2020-06-17] MEDS: Naproxen 250 MG Tablet 500 MG PO (21:49)
== END 2020-06-17 21:51 | disposition home or self-care (01) ==
LOC: ED 21:44
PROVIDERS: Emergency Provider Emergency Medicine; PCP Internal Medicine
DX: K04.02 Irreversible pulpitis (principal); K02.9 Dental caries, unspecified; K04.7 Periapical abscess without sinus; E66.9 Obesity, unspecified; Z87.891 Personal history of nicotine dependence
CPT/HCPCS: 99283

== ENCOUNTER 2020-12-17 22:34 | Emergency (ER) | payer MEDICAID, SELFPAY ==
[2020-12-17 22:35] VITALS: BP 160/91; PULSE 87; RESP 18; TEMP 36.3; O2SAT 96; BMI 46.5
--- NOTE | 2020-12-17 22:45 | ED.VIS.GEN ---
History of Present Illness Chief Complaint: Fall Informant: Patient Narrative: 54-year-old male presenting to the emergency department for the evaluation of pain from a fall. Patient states that he got out of his vehicle this afternoon and slipped and fell. He landed on the right side of his body. He has pain right hip buttock area, right little finger, and right elbow. He states his the hours of gone by he has felt progressively sore. He states that he came because his is concerned for him and wanted him checked out. He denies hitting his head or any neck pain. He denies any back pain. He notes range of motion is painful of the right arm but he can do it. He has been able to bear weight. - Past Medical History (1) COPD (chronic obstructive pulmonary disease) Status: Chronic (2) HTN (hypertension) Status: Chronic (3) FREDERICK (obstructive sleep apnea) Status: Chronic Past Medical History - Allergies and Home Meds Allergies/Adverse Reactions: Allergies Penicillins Allergy (Verified 12/17/20 22:37) Unknown Primary Care Physician: Anika Velazco MD [Primary Care Provider] - 10-14 Days if not better Surgical History: noncontributory, - - Left knee replacement, multiple surgeries left ear Lives: Spouse/ Significant Other Smoking Status: Former smoker Drugs: None - Family History Maternal Family History: Family History (Last Updated 01/10/19 @ 20:[address] Medardo Talbert DO) Other COPD (chronic obstructive pulmonary disease) Family History: Reports: Cancer - Breast Paternal Family History: Family History (Last Updated 01/10/19 @ 20:[address] Medardo Talbert DO) Other COPD (chronic obstructive pulmonary disease) Family History: Reports: Cancer - Prostate Review of Systems General: Denies: Chills, Fever, Sweats Eyes: Denies: Visual changes - bilaterally, Diplopia ENT: Denies: Rhinorrhea, Sore throat Cardiovascular: Denies: Chest pain, Palpitations Respiratory: Denies: Dyspnea, Cough, Dyspnea on exertion Gastrointestinal: Denies: Abdominal pain, Nausea, Vomiting, Diarrhea, Melena, Hematochezia Genitourinary: Denies: Dysuria, Hematuria, Frequency Musculoskeletal: Reports: Extremity Pain. Denies: Back pain Skin: Denies: Rash, Wounds Neurological: Denies: Headache, Weakness, Numbness Physical Exam Vital Signs/Narrative: Vital Signs Temp Pulse Resp BP Pulse Ox 12/17/20 22:35 97.3 F L 87 18 160/91 H 96 Inital Vital Signs reviewed: Yes General: Well nourished, Well developed, Obese, No Acute Distress Head: Normocephalic, Atraumatic Eyes: Perrl, EOMI ENT: Moist mucous membranes, No rhinorrhea Neck: Supple, Nontender Cardiovascular: Regular rate, Regular rhythm, No murmurs Respiratory: No distress, CTA bilaterally, Chest nontender Abdomen: Soft, Nontender, Nondistended, Normal bowel sounds Back: Nontender, Normal Inspection Extremities: No edema, Tenderness - Tender to palpation along the right little finger middle and distal phalanx. Tender palpation about the right elbow. Full range of motion albeit painful. Mild tenderness over the right hip. Skin: Normal color, No rash Neurological: Alert, Oriented x3, Cranial nerves II-XII grossly intact, Normal Strength, Normal Sensation Psychological: Normal affect, Normal Mood Diagnostic/Tx/Re-eval Clinical Impression(s) from Imaging Studies Elbow X-Ray 12/17/20 23:00 IMPRESSION: Normal x-ray examination of the elbow. Electronically Signed: Izaiah Duval MD at 23:29 EST , Service support , Hand X-Ray 12/17/20 23:00 IMPRESSION: No acute process Electronically Signed: Izaiah Duval MD at 23:31 EST , Service support , Hip/Pelvis X-Ray 12/17/20 23:00 IMPRESSION: Normal x-ray examination of the pelvis and hip. Electronically Signed: Izaiah Duval MD at 23:31 EST , Service support , - Medical Decision Making My interpretation of the plain films of the right hand are negative for acute fracture. My interpretation of the three-view plain films of the right elbow are negative for fracture or effusion My interpretation of the three-view right hip with pelvis is negative for fracture. Patient will be discharged home with supportive care. He is to expect soreness possibly even worse tomorrow. Follow-up primary care 10 to 14 days if not improved ED Disposition - Plan for ED Patient: Disposition: Home or Assisted Living Diagnosis: Contusion of right elbow, Contusion of right hand, Contusion of right hip and thigh Instructions: ED Contusion, Lower Extremity, ED Contusion, Upper Extremity Referrals: Anika Velazco MD [Primary Care Provider] - 10-14 Days if not better
--- NOTE | 2020-12-17 23:00 | RAD_ITS ---
STUDY: X-RAY - PELVIS AND RIGHT HIP REASON FOR EXAM: Male, 54 years old. Fall today. Rt hip pain. TECHNIQUE: 4 views of the pelvis and hip. COMPARISON: None. FINDINGS: There is a non-specific bowel gas pattern. Normal visualized soft tissue structures. No visualized acute fracture or displaced bony fragment. Normal bilateral iliac wings, sacroiliac joints and visualized sacrum. Normal bilateral superior and inferior pubic rami. Normal pubic symphysis. Normal bilateral ischial tuberosities. Normal visualized femoral head. Normal acetabulum. Normal hip joint. RAD/HIP, UNI W/ Pelvis 2-3 Views IMPRESSION: Normal x-ray examination of the pelvis and hip. Electronically Signed: Izaiah Duval MD at 23:31 EST , Service support ,
--- NOTE | 2020-12-17 23:00 | RAD_ITS ---
STUDY: X-RAY - RIGHT ELBOW REASON FOR EXAM: Male, 54 years old. Fall today. Rt elbow pain. TECHNIQUE: 3 view(s) of the elbow. COMPARISON: None. FINDINGS: Normal visualized humerus, radius and ulna. Normal radiocapitellar and ulnotrochlear articulations. The soft tissue structures are unremarkable. There is no demonstrated fracture. RAD/Elbow min 3 Views IMPRESSION: Normal x-ray examination of the elbow. Electronically Signed: Izaiah Duval MD at 23:29 EST , Service support ,
--- NOTE | 2020-12-17 23:00 | RAD_ITS ---
STUDY: X-RAY - RIGHT HAND REASON FOR EXAM: Male, 54 years old. Fall today. Rt hand pain. TECHNIQUE: 3 view(s) of the hand. COMPARISON: Right hand x-ray dated MARCH 05, 2012 FINDINGS: Normal radiocarpal articulation. Normal distal radioulnar joint. Normal visualized carpal bones. Normal carpal articulations Normal carpometacarpal articulation of the thumb. Normal second through fifth carpometacarpal joints. Normal metacarpi. Mild scattered degenerative changes are present. No visualized acute fracture or displaced fragment. The soft tissue structures are unremarkable. RAD/Hand Min 3 Views IMPRESSION: No acute process Electronically Signed: Izaiah Duval MD at 23:31 EST , Service support ,
== END 2020-12-17 23:43 | disposition home or self-care (01) ==
PROVIDERS: Emergency Provider Emergency Medicine; PCP Internal Medicine
DX: S50.01XA Contusion of right elbow, initial encounter (principal); S60.221A Contusion of right hand, initial encounter; S70.01XA Contusion of right hip, initial encounter; S70.11XA Contusion of right thigh, initial encounter; J44.9 Chronic obstructive pulmonary disease, unspecified; I10 Essential (primary) hypertension; E66.9 Obesity, unspecified; Z79.51 Long term (current) use of inhaled steroids; Z79.899 Other long term (current) drug therapy; Z87.891 Personal history of nicotine dependence; W01.0XXA Fall on same level from slipping, tripping and stumbling without subsequent striking against object, initial encounter; Y93.89 Activity, other specified; Y92.89 Other specified places as the place of occurrence of the external cause; Y99.8 Other external cause status
CPT/HCPCS: 73080; 73130; 73502; 99282

== ENCOUNTER 2021-05-08 18:27 | Emergency (ER) | payer MEDICAID, SELFPAY ==
[2021-05-08] VITALS (8 sets, daily range): BP systolic 105–149; BP diastolic 70–92; PULSE 76–114; RESP 15–22; TEMP 36.6–36.8; O2SAT 92–99; BMI 50.1
--- NOTE | 2021-05-08 18:49 | RAD_ITS ---
STUDY: X-RAY CHEST REASON FOR EXAM: Male, 55 years old. chest pain TECHNIQUE: AP COMPARISON: 04/05/2020 FINDINGS: The lungs are clear and expanded. There is no demonstrated pleural abnormality. Normal size heart. Normal mediastinum and mo. Normal visualized pulmonary arteries. Normal visualized aortic arch and descending thoracic aorta. Normal visualized thoracic spine. Normal visualized ribs, clavicles, and shoulders. There is no demonstrated abnormality of the visualized soft tissue structures of the upper abdomen. RAD/Chest 1 View (Portable) IMPRESSION: Nonacute portable x-ray examination of the chest. Electronically Signed: Sanjeev Whitfield MD ([place]) at 19:32 EDT , Service support ,
--- NOTE | 2021-05-08 18:49 | EKG12_ITS ---
Test Reason : CP Blood Pressure : / mmHG Vent. Rate : 113 BPM Atrial Rate : 113 BPM P-R Int : 160 ms QRS Dur : 088 ms QT Int : 324 ms P-R-T Axes : 042 059 067 degrees QTc Int : 444 ms Sinus tachycardia Otherwise normal ECG Confirmed by BRYANT BANUELOS, EVELIO ([id number]), clinical editor PRINCE WEAVER ([id number]) on 05/11/2021 8:55:56 AM Referred By: ASHLEY Confirmed By:EVELIO HURTADO MD
--- NOTE | 2021-05-08 19:05 | EDS_ITS ---
HPI History of Present Illness Chief Complaint: Chest Pain Narrative Narrative: 55-year-old male presenting with sharp right-sided chest pain. 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 Patient states he just drove 15 minutes out of town and on his way back the tire blew out. While changing a tire the pain started. He states is eased up now. It feels like sharp and not pressure. Patient denies cardiac history. He has history of COPD, hypertension, FREDERICK. Patient felt well prior to this. [facility] Medical History Asthma COPD (chronic obstructive pulmonary disease) Emphysema lung Former smoker HTN (hypertension) Hypertension FREDERICK (obstructive sleep apnea) Home Medications albuterol sulfate 1 puff INHALATION Q6H PRN PRN 04/05/20 [History Last Taken 04/05/20 09:00] meclizine 25 mg PO TID PRN PRN #20 tab 04/07/20 [Rx Last Taken Unknown] lisinopril-hydrochlorothiazide 1 ea PO DAILY 12/17/20 [History Last Taken Unknown] Allergy/AdvReac Type Severity Reaction Status Date / Time Penicillins Allergy Unknown Verified 05/08/21 18:29 Family History Other COPD (chronic obstructive pulmonary disease) Surgical History History of left knee replacement Social History Smoking Status: Former smoker Tobacco: How many years used: 12 how long ago did patient quit smokin second hand exposure: Yes alcohol intake: never substance use type: does not use ROS ROS ED Constitutional Constitutional ED: Denies chills, fever(s) or subjective Eyes Eyes: Denies none or change in vision ENT ENT ED: Denies ear pain, rhinorrhea or sore throat Cardiovascular Cardiovascular: Reports chest pain and racing heartbeat; Denies as per HPI or palpitations Respiratory/Chest Respiratory/Chest: Denies cough or dyspnea Gastrointestinal Gastrointestinal: Denies abdominal pain, nausea or vomiting Genitourinary Genitourinary ED: Denies dysuria or hematuria Musculoskeletal Musculoskeletal: Denies arthralgias or myalgias Integumentary Denies abscess or rash Neurologic Neurologic: Denies headache(s), paresthesias or weakness Psychiatric Psychiatric: Denies depression EXAM Physical Exam Const Vital Signs: 05/08/21 18:28 05/08/21 18:47 05/08/21 19:06 Temperature 97.9 F 98.2 F Temperature Source Temporal Oral Pulse Rate 114 H 103 H Respiratory Rate 22 H 22 H Respiratory Effort Short of Breath Blood Pressure 149/84 H 123/83 H Blood Pressure Mean 105 96 Pulse Ox 92 95 Oxygen Delivery Method Room Air Room Air Room Air 05/08/21 19:27 05/08/21 20:00 05/08/21 21:00 Temperature Temperature Source Pulse Rate 91 82 78 Respiratory Rate 15 16 16 Respiratory Effort Blood Pressure 127/92 H 105/70 118/78 Blood Pressure Mean 103 81 91 Pulse Ox 99 99 99 Oxygen Delivery Method Room Air Room Air Room Air 05/08/21 22:00 05/08/21 22:44 Temperature Temperature Source Pulse Rate 83 76 Respiratory Rate 15 15 Respiratory Effort Blood Pressure 127/82 H 126/88 H Blood Pressure Mean 97 Pulse Ox 99 95 Oxygen Delivery Method Room Air Positive obese General Appearance ED: NAD; Negative for pallor Nutritional Appearance: obese HEENT Reports moist mucous membranes normocephalic and atraumatic Eyes PERRL and EOMs intact bilaterally Chest Wall Chest Narrative: Right sided pectoralis. No crepitance. Chest: tenderness Resp normal respiratory effort Effort and Inspection: respiratory distress Cardio regular rhythm Rate: tachycardic Extremity normal to inspection General Extremety ED: Negative for tenderness Neuro oriented x3 Sensorium / Orientation: awake and alert Psych mental status grossly normal Skin no rashes or lesions noted and no wounds General Skin Exam: Negative for pallor Heart Score History: Slightly/Non-Suspicious ECG: Normal Age: >45 - <65 years Risk Factors: 1 or 2 Risk Factors Score: 2 MDM MDM MDM Narrative Medical decision making narrative: Patient presenting with right-sided sharp chest pain which is reproducible on exam. He states it hurts when he takes a deep breath on exam as well. EKG performed on arrival shows a sinus tachycardia at 113 bpm on my interpretation. Patient heart score is 2. Patient had chest x-ray which on my interpretation shows no acute cardiopulmonary process. The radiologist does agree. Lab work-up is unremarkable. Troponin is negative. D- dimer is negative. Patient had 2-hour high-sensitivity troponin which is minimal change and still less than 12 and at this point patient is ruled out. Patient will be discharged home in stable condition. Patient counseled to alternate ice and heat and use Tylenol and ibuprofen for pain. Impression: 1. Chest pain 2. Right pectoralis strain Lab Data Attestation: I reviewed the patient's lab results. Labs: Laboratory Results - last 24 hr 05/08/21 05/08/21 05/08/21 19:00 19:00 19:00 WBC 6.6 RBC 4.92 Hgb 15.2 Hct 45.0 MCV 91.5 MCH 30.9 MCHC 33.8 RDW Std Deviation 42.6 RDW Coeff of [place]field 12.7 Plt Count 207 MPV 12.3 H Immature Gran % (Auto) 0.300 Neut % (Auto) 49.4 Lymph % (Auto) 33.7 [place] % (Auto) 10.9 H Eos % (Auto) 4.9 Baso % (Auto) 0.8 Absolute Neuts (auto) 3.3 Absolute Lymphs (auto) 2.22 Nucleated RBC % 0 D-Dimer Quant (PE/DVT) 0.37 Sodium 141 Potassium 3.6 Chloride 106 Carbon Dioxide 29.0 Anion Gap 6 BUN 13 Creatinine 1.15 Estim Creat Clear Calc 71.72 Est GFR (MDRD) Af Amer 85 Est GFR (MDRD) Non-Af 70 BUN/Creatinine Ratio 11.3 Glucose 149 H Calcium 9.1 Troponin I High Sens 10.2 05/08/21 21:03 WBC RBC Hgb Hct MCV MCH MCHC RDW Std Deviation RDW Coeff of [place]field Plt Count MPV Immature Gran % (Auto) Neut % (Auto) Lymph % (Auto) [place] % (Auto) Eos % (Auto) Baso % (Auto) Absolute Neuts (auto) Absolute Lymphs (auto) Nucleated RBC % D-Dimer Quant (PE/DVT) Sodium Potassium Chloride Carbon Dioxide Anion Gap BUN Creatinine Estim Creat Clear Calc Est GFR (MDRD) Af Amer Est GFR (MDRD) Non-Af BUN/Creatinine Ratio Glucose Calcium Troponin I High Sens 11.4 Radiography Diagnostic Testing: Radiology Impression Chest X-Ray 05/08/21 18:49 IMPRESSION: Nonacute portable x-ray examination of the chest. Electronically Signed: Sanjeev Whitfield (Brooks) MD at 19:32 EDT , Service support , Discharge Plan Triage Chief Complaint: Chest Pain ED Provider: Carlos Meyers Dx/Rx/DC Orders Instructions: ED Chest Pain, Noncardiac Prescriptions: No Action albuterol sulfate 1 PUFF inhaler 1 puff inhalation Q6H PRN PRN (Reason: Wheezing) RF: 0 meclizine 25 MG tablet 25 mg PO TID PRN PRN (Reason: Dizziness) Qty: 20 RF: 0 lisinopril-hydrochlorothiazide 1 EACH tablet 1 ea PO DAILY RF: 0 Primary Care Provider: Anika Velazco Referrals: Anika Velazco MD [Primary Care Provider] - Disposition Disposition: Home, Self Care Discharge Date/Time: 05/08/21 22:48
[2021-05-08] MEDS: Aspirin 81 MG TAB.CHEW 324 MG PO (19:08)
[2021-05-08 19:10] LABS: Absolute Lymphocyte Count 2.22 X10^3/uL (0.83-4.51); Absolute Neutrophil Count 3.3 X10^3/uL (2.0-7.7); Basophil# 0.05 X10^3/uL; Basophil% 0.8 % (0-1); Eosinophil# 0.32 X10^3/uL; Eosinophils% 4.9 % (0-5); Hemoglobin 15.2 g/dL (13.0-16.5); Lymphocyte # 2.22 X10^3/ul (0.83-4.51); Lymphocyte % 33.7 % (19-41); Mean Corp Hgb Conc 33.8 g/dL (32-36); Mean Corpuscular Hgb 30.9 pg (27.0-32.0); Mean Corpuscular Volume 91.5 fL (80-94); Mean Platelet Vol. 12.3 fl (6.2-12.0); Monocyte# 0.72 X10^3/uL; Monocyte% 10.9 % (0-10); NRBC Flagged by Analyzer 0 % (0-5); Neutrophil # 3.25 X10^3/uL (2.7-7.7); Neutrophil % 49.4 % (47-70); Platelet Count 207 K/mm3 (150-450); RBC Distribution Width CV 12.7 % (11.6-14.6); RBC Distribution Width SD 42.6 fl (35.1-43.9); Red Blood Count 4.92 M/mm3 (4.6-6.2); White Blood Count 6.6 K/mm3 (4.4-11.0)
[2021-05-08 19:22] LABS: D-Dimer Quantitative (DVT/PE) 0.37 FEU/ug/m (0.27-0.49)
[2021-05-08 19:31] LABS: Anion Gap 6 (5-15); BUN 13 mg/dL (7-18); BUN/Creat Ratio 11.3 RATIO (10-20); Calcium,Total 9.1 mg/dL (8.5-10.1); Chloride 106 mmol/L (98-107); Creatinine, Serum 1.15 mg/dL (0.70-1.30); EST Glomerular Filtration Rate 70 mL/min (>60); Est Glom Filt Rate - Afr Amer 85 mL/min (>60); Estimated Creatinine Clearance 71.72 ml/min; Glucose 149 mg/dL (74-106); Potassium 3.6 mmol/L (3.5-5.1); Sodium Level 141 mmol/L (136-145); Troponin-I HS 10.2 pg/mL (3.0-78.5)
--- NOTE | 2021-05-08 20:35 | EKG12_ITS ---
Test Reason : REPEAT Blood Pressure : / mmHG Vent. Rate : 070 BPM Atrial Rate : 070 BPM P-R Int : 150 ms QRS Dur : 086 ms QT Int : 386 ms P-R-T Axes : 054 047 077 degrees QTc Int : 416 ms Normal sinus rhythm with sinus arrhythmia Normal ECG Confirmed by BRYANT BANUELOS, EVELIO ([id number]), editor department PRINCE WEAVER ([id number]) on 05/11/2021 8:56:14 AM Referred By: DANAY Confirmed By:EVELIO HURTADO MD
[2021-05-08 21:25] LABS: Troponin-I HS 11.4 pg/mL (3.0-78.5)
[2021-05-08] MEDS: Acetaminophen 500 MG Tablet 1000 MG PO (22:13)
== END 2021-05-08 22:48 | disposition home or self-care (01) ==
PROVIDERS: Emergency Provider Student in an Organized Health Care Education/Training Program; PCP Internal Medicine
DX: S29.011A Strain of muscle and tendon of front wall of thorax, initial encounter (principal); R07.89 Other chest pain; J44.9 Chronic obstructive pulmonary disease, unspecified; I10 Essential (primary) hypertension; E78.5 Hyperlipidemia, unspecified; Z87.891 Personal history of nicotine dependence; Z79.51 Long term (current) use of inhaled steroids; Z79.899 Other long term (current) drug therapy; E66.9 Obesity, unspecified; X58.XXXA Exposure to other specified factors, initial encounter; Y93.89 Activity, other specified; Y92.89 Other specified places as the place of occurrence of the external cause; Y99.8 Other external cause status
CPT/HCPCS: 71045; 80048; 84484; 85025; 85379; 93005; 99285; A4216

== ENCOUNTER 2021-06-11 16:30 | Emergency (ER) | payer MEDICAID, SELFPAY ==
[2021-05-08 18:28] VITALS: BMI 50.1
[2021-06-11 16:31] VITALS: BP 146/132; PULSE 98; RESP 22; TEMP 36.6; O2SAT 95; BMI 46.5
--- NOTE | 2021-06-11 16:43 | EKG12_ITS ---
Test Reason : DIZZINESS Blood Pressure : / mmHG Vent. Rate : 079 BPM Atrial Rate : 079 BPM P-R Int : 154 ms QRS Dur : 082 ms QT Int : 376 ms P-R-T Axes : 055 043 074 degrees QTc Int : 431 ms Normal sinus rhythm Normal ECG Confirmed by CHARLY BANUELOS, BECKY ([id number]), advertising editor PRINCE WEAVER ([id number]) on 06/17/2021 1:11:25 PM Referred By: VALERY Confirmed By:BECKY PARKS MD
--- NOTE | 2021-06-11 16:47 | RAD_ITS ---
STUDY: X-RAY CHEST REASON FOR EXAM: Male, 55 years old. Stroke TECHNIQUE: Single AP portable view of the chest. COMPARISON: 05/08/2021. FINDINGS: The lungs are clear and expanded. There is no demonstrated pleural abnormality. Normal size heart. Normal mediastinum and mo. Normal visualized pulmonary arteries. Normal visualized aortic arch and descending thoracic aorta. Normal visualized thoracic spine. Normal visualized ribs, clavicles, and shoulders. There is no demonstrated abnormality of the visualized soft tissue structures of the upper abdomen. RAD/Chest 1 View (Portable) IMPRESSION: Normal x-ray examination of the chest. Electronically Signed: Fernanda Trevino MD at 17:06 EDT Tel , Service support ,
[2021-06-11 17:05] LABS: Absolute Lymphocyte Count 2.34 X10^3/uL (0.83-4.51); Absolute Neutrophil Count 3.4 X10^3/uL (2.0-7.7); Basophil# 0.04 X10^3/uL; Basophil% 0.6 % (0-1); Eosinophil# 0.35 X10^3/uL; Hematocrit 42.8 % (40-54); Hemoglobin 14.2 g/dL (13.0-16.5); Lymphocyte # 2.34 X10^3/ul (0.83-4.51); Lymphocyte % 33.1 % (19-41); Mean Corp Hgb Conc 33.2 g/dL (32-36); Mean Corpuscular Hgb 31.1 pg (27.0-32.0); Mean Corpuscular Volume 93.9 fL (80-94); Mean Platelet Vol. 11.6 fl (6.2-12.0); Monocyte# 0.87 X10^3/uL; Monocyte% 12.3 % (0-10); NRBC Flagged by Analyzer 0 % (0-5); Neutrophil # 3.44 X10^3/uL (2.7-7.7); Neutrophil % 48.7 % (47-70); Platelet Count 179 K/mm3 (150-450); RBC Distribution Width SD 44.6 fl (35.1-43.9); Red Blood Count 4.56 M/mm3 (4.6-6.2); White Blood Count 7.1 K/mm3 (4.4-11.0)
[2021-06-11 17:14] LABS: Prothrombin Time (Protime)PT. 12.9 SECONDS (11.7-14.9)
[2021-06-11 17:15] LABS: Partial Thromboplast Time 27.7 Seconds (24.1-36.2)
[2021-06-11 17:32] LABS: Anion Gap 6 (5-15); BUN 16 mg/dL (7-18); Calcium,Total 8.3 mg/dL (8.5-10.1); Chloride 107 mmol/L (98-107); EST Glomerular Filtration Rate 82 mL/min (>60); Est Glom Filt Rate - Afr Amer 99 mL/min (>60); Estimated Creatinine Clearance 82.48 ml/min; Glucose 90 mg/dL (74-106); Potassium 3.6 mmol/L (3.5-5.1); Sodium Level 142 mmol/L (136-145)
[2021-06-11 17:36] VITALS: O2SAT 94
[2021-06-11 17:38] VITALS: BP 144/81; PULSE 80; PULSE 86; RESP 18; RESP 21; O2SAT 95
--- NOTE | 2021-06-11 17:41 | ED.RN ---
PT REPORTS WAKING UP TODAY WITH DIZZINESS. REPORTS EARS HAVE BEEN POPPING AND HAVING EAR PROBLEMS OVER THE LAST 2 WEEKS. PT A_OX4. NIH 0. AWAITING TO BE SEEN BY PHYSICIAN.
[2021-06-11 17:46] LABS: Bedside Glucose 84 mg/dL (70-110)
--- NOTE | 2021-06-11 18:12 | EX.ED.DYSGE1 ---
HPI History of Present Illness Chief Complaint: Dizziness Informant: patient Onset/Context/Timing Onset: Today Context: Sudden Onset (getting out of bed) Timing: Intermittent and Lasts (minutes) Quality: spinning Location: head Current Severity: Mild Maximum Severity: Severe Worsened by: position changes, turning head Relieved by: remaining still in one position Associated Symptoms Associated Symptoms: nausea, R earache w/ popping Narrative Narrative: Patient states he woke up and felt suddenly severely dizzy upon getting out of bed this morning. States he had a minor fall to the floor because it took him by surprise, he did not injure himself. States his ears been hurting today, and popping. He states lately he has been trying to get wax out of it with Q-tips, digging quite a bit, because he has been having trouble hearing out of it due to wax and he is deaf in his left ear, making it very hard for him to hear things. States he has had vertigo remotely in the past and this felt like it. 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 He denies any recent fevers or chills. No peripheral neurologic symptoms today. No severe unusual headaches. No vision changes such as diplopia. Able to walk but off balance and sometimes have to hold onto things. Usually walks without assistive device. 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 [facility] Medical History Asthma COPD (chronic obstructive pulmonary disease) Emphysema lung Former smoker HTN (hypertension) Hypertension FERDERICK (obstructive sleep apnea) Home Medications albuterol sulfate 1 puff INHALATION Q6H PRN PRN 04/05/20 [History Last Taken 04/05/20 09:00] lisinopril-hydrochlorothiazide 1 ea PO DAILY 12/17/20 [History Last Taken Unknown] cefdinir 300 mg PO BID #14 cap 06/11/21 [Rx Last Taken Unknown] meclizine 25 mg PO Q8H PRN PRN #20 tab 06/11/21 [Rx Last Taken Unknown] Allergy/AdvReac Type Severity Reaction Status Date / Time Penicillins Allergy Unknown Verified 06/11/21 16:31 Family History Other COPD (chronic obstructive pulmonary disease) Surgical History History of left knee replacement Social History Smoking Status: Former smoker Tobacco: How many years used: 12 how long ago did patient quit smokin second hand exposure: Yes alcohol intake: never substance use type: does not use ROS ROS ED Constitutional Constitutional ED: Denies chills or fever(s) Eyes Eyes: Denies change in vision, diplopia or loss of vision ENT ENT ED: Denies rhinorrhea or sore throat Cardiovascular Cardiovascular: Denies chest pain or palpitations Respiratory/Chest Respiratory/Chest: Denies cough or dyspnea Gastrointestinal Gastrointestinal: Reports nausea; Denies abdominal pain, diarrhea or vomiting Genitourinary Genitourinary ED: Denies dysuria or hematuria Musculoskeletal Musculoskeletal: Denies back pain or neck pain Integumentary Denies abscess or rash Neurologic Neurologic: Reports as per HPI and vertigo; Denies headache(s), loss of vision, paresthesias or weakness Psychiatric Psychiatric: Denies anxiety or suicidal thoughts EXAM Physical Exam Const Vital Signs: 06/11/21 16:31 06/11/21 17:36 06/11/21 17:38 Temperature 98 F Temperature Source Temporal Pulse Rate 98 80 Respiratory Rate 22 H 21 H Blood Pressure 146/132 H 144/81 H Blood Pressure Mean 136 102 Pulse Ox 95 94 95 Oxygen Delivery Method Room Air Room Air Room Air Positive well nourished, well developed and obese General Appearance ED: well developed and NAD Nutritional Appearance: obese HEENT Reports moist mucous membranes HEENT Narrative: Cerumen bilaterally, right TM appears to possibly be perforated. No discharge. No pain with manipulation of the pinna/tragus. normocephalic and atraumatic Eyes PERRL, EOMs intact bilaterally, conjunctivae normal and no scleral icterus Eyes Narrative: Horizontal nystagmus to the left. No vertical or rotatory nystagmus. Neck full ROM and supple Resp normal respiratory effort and clear to auscultation bilaterally Cardio regular rate, regular rhythm and no murmurs GI non-tender and non-distended Auscultation: normoactive bowel sounds Palpation: soft Back/Spine no CVA tenderness General Back: other FROM Extremity normal to inspection General Extremety ED: Yes edema; Negative for pulses abnormal or tenderness General Extremity: edema bilateral lower extremity Details: mild (And symmetric); Negative for pulses abnormal Neuro oriented x3, CN's II-XII intact bilaterally and no sensory deficits noted Neuro Narrative: Normal ukwxkj-je-lreo and zwjz-uc-rxzp bilaterally. No dysmetria. Sensorium / Orientation: awake and alert Motor Exam: strength 5/5 throughout Skin no rashes or lesions noted and no wounds MDM MDM MDM Narrative Medical decision making narrative: Work-up ordered by nursing as a verbal prior to my interviewing the patient and obtaining any details. This is all consistent with peripheral vertigo, he has no red flag features, he is able to walk with a little assistance right now, before treatment. Will treat him with meclizine, prophylactic antibiotics, Zofran here, and refer him to otolaryngology for further assessment. Lab Data Attestation: I reviewed the patient's lab results. Labs: Laboratory Results - last 24 hr 06/11/21 06/11/21 06/11/21 17:00 17:00 17:00 WBC 7.1 RBC 4.56 L Hgb 14.2 Hct 42.8 MCV 93.9 MCH 31.1 MCHC 33.2 RDW Std Deviation 44.6 H RDW Coeff of Garfield 13.0 Plt Count 179 MPV 11.6 Immature Gran % (Auto) 0.300 Neut % (Auto) 48.7 Lymph % (Auto) 33.1 [place] % (Auto) 12.3 H Eos % (Auto) 5.0 Baso % (Auto) 0.6 Absolute Neuts (auto) 3.4 Absolute Lymphs (auto) 2.34 Nucleated RBC % 0 PT 12.9 INR 1.0 APTT 27.7 Sodium 142 Potassium 3.6 Chloride 107 Carbon Dioxide 29.0 Anion Gap 6 BUN 16 Creatinine 1.00 Estim Creat Clear Calc 82.48 Est GFR (MDRD) Af Amer 99 Est GFR (MDRD) Non-Af 82 BUN/Creatinine Ratio 16.0 Glucose 90 Calcium 8.3 L POC Glucose 06/11/21 17:35 WBC RBC Hgb Hct MCV MCH MCHC RDW Std Deviation RDW Coeff of Garfield Plt Count MPV Immature Gran % (Auto) Neut % (Auto) Lymph % (Auto) [place] % (Auto) Eos % (Auto) Baso % (Auto) Absolute Neuts (auto) Absolute Lymphs (auto) Nucleated RBC % PT INR APTT Sodium Potassium Chloride Carbon Dioxide Anion Gap BUN Creatinine Estim Creat Clear Calc Est GFR (MDRD) Af Amer Est GFR (MDRD) Non-Af BUN/Creatinine Ratio Glucose Calcium POC Glucose 84 Radiography Chest X-Ray - ED: 1 View, Read by ED Physician, Normal and No Acute Disease Diagnostic Testing: Radiology Impression Chest X-Ray 06/11/21 16:47 IMPRESSION: Normal x-ray examination of the chest. Electronically Signed: Fernanda Trevino MD at 17:06 EDT Tel , Service support , EKG Initial EKG: Attestation: I personally reviewed and interpreted this EKG as follows: Interpretation: Sinus Rhythm and No Acute Injury Pattern Comments: Normal EKG. Rate 79. Discharge Plan Triage Chief Complaint: Dizziness ED Provider: Ovi Langford Dx/Rx/DC Orders Clinical Impression: Peripheral vertigo involving right ear, Perforated right tympanic membrane on examination Instructions: ED Ruptured Eardrum, Traumatic, ED Vertigo, Unspecified Prescriptions: New meclizine [meclizine] 25 MG tablet 25 mg PO Q8H PRN PRN (Reason: Dizziness) Qty: 20 RF: 0 cefdinir 300 mg capsule 300 mg PO BID Qty: 14 RF: 0 No Action albuterol sulfate 1 PUFF inhaler 1 puff inhalation Q6H PRN PRN (Reason: Wheezing) RF: 0 lisinopril-hydrochlorothiazide 1 EACH tablet 1 ea PO DAILY RF: 0 Primary Care Provider: Anika Velazco Referrals: Medardo Ferreira MD [STAFF PHYSICIAN] - As soon as possible Anika Velazco MD [Primary Care Provider] - Disposition Disposition: Home, Self Care
[2021-06-11 18:34] VITALS: BP 125/82; PULSE 81; RESP 18; O2SAT 93
[2021-06-11] MEDS: Meclizine HCl 25 MG Tablet PO (18:34)
[2021-06-11] MEDS: Ondansetron ODT 4 MG Tablet 8 MG PO (18:34)
== END 2021-06-11 18:46 | disposition home or self-care (01) ==
LOC: ED 18:20
PROVIDERS: Emergency Provider Emergency Medicine; PCP Internal Medicine
DX: H81.399 Other peripheral vertigo, unspecified ear (principal); S09.21XA Traumatic rupture of right ear drum, initial encounter; J44.9 Chronic obstructive pulmonary disease, unspecified; I10 Essential (primary) hypertension; E66.9 Obesity, unspecified; Z79.51 Long term (current) use of inhaled steroids; Z79.899 Other long term (current) drug therapy; Z87.891 Personal history of nicotine dependence; X58.XXXA Exposure to other specified factors, initial encounter; Y93.F9 Activity, other caregiving; Y92.002 Bathroom of unspecified non-institutional (private) residence as the place of occurrence of the external cause; Y99.8 Other external cause status
CPT/HCPCS: 71045; 80048; 82962; 85025; 85610; 85730; 93005; 99285

== ENCOUNTER 2021-06-30 14:06 | Outpatient (RCR) | payer MEDICAID, SELFPAY ==
--- NOTE | 2021-06-30 14:47 | HP.PTEVAL_ITS ---
Patient's Visit Information NANCIE WARNER is a 55 year old M referred to Physical Therapy by Dr. Medardo Ferreira MD with a diagnosis of BPPV. Date of Evaluation: 06/30/21 Physical Therapist: Medardo Mcclain, SASCHA, OCS, CSCS - Visit Plan Frequency: 1-2x /Week Duration: 2-4 Weeks Plan: 1-2x/week for 2-4 weeks as needed for. Positional treatments and ex adn monitor condition. - Subjective Went to ER when dizzyness started 3 weks ago, given antibiotic and sent to dr. Ferreira. Jhon Brunner sent over for unsteadiness due to ear problems. Described as spinning off balance, dizzy. Its been going on for 3 weeks insidiously. 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 Has not worked in 3 weeks. Also avoids regular housework. Lives in two bedroom small place and takes hours to clean it due to dizzyness. Lives with . $ steps to enter with rail and doing them slowly. - Objective Walks and transfers slowly but I. cervical AROM 30 ext, and rotation 50 without pain. - L hallpike john. + R hallpike for quick up torsional and dizzy. Treated with Ping. SOB after walking and steps and used inhaler. 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 Goal Time Frame: 2-4 Weeks - Rehabilitation Potential Physical Therapy Diagnosis: R BPPV post canal Rehabilitation Potential: Fair - Anticipated Interventions For the Purpose of:: To increase tolerance to activity/condition/position, To improve ability of physical actions for home/community/work/leisure Comment: postional ex and maneuvers For the Purpose of:: To increase tolerance to activity/condition/position, To improve ability of physical actions for home/community/work/leisure, To improve gait and locomotor functions Thank you for the opportunity to evaluate your patient. For Medicare and Medicare HMO plans, please review the plan of care and approve it. It will need to be FAXED BACK to us at [phone] for Medicare purposes. For Medicare only, by signing this I certify the plan of care. Please let me know if there are questions or concerns regarding this plan of care. Physician Signature: Date:
--- NOTE | 2021-08-25 09:19 | HP.PT.NRP ---
NANCIE Joya ALANA was seen in my office for initial evaluation on 06/30/21. The following Plan of Care was established for this patient: Initial Frequency: 1-2x /Week Initial Duration: 2-4 Weeks For the Purpose of:: To increase tolerance to activity/condition/position, To improve ability of physical actions for home/community/work/leisure For the Purpose of:: To increase tolerance to activity/condition/position, To improve ability of physical actions for home/community/work/leisure, To improve gait and locomotor functions This patient was last seen in our office 06/30/21. Pertinent comments regarding their Physical therapy will appear below: Pt seen one visit of positional and POC established. Pt did not schedule or return for further visits. At this point it has been nearly two months and I will discontinue him from my care. At this point I will be discontinuing this patient from physical therapy. I would be happy to see this patient again in the future if found appropriate by the physician. Thank you! Medardo Mcclain, DPT, OCS, CSCS Balance/Gait/Functional tests - Balance/Special Test Scores Functional Gait Assessment Score: 22 % Disability: 26.6700 Dizziness Score: 68
== END 2021-06-30 19:00 | disposition home or self-care (01) ==
LOC: PT 14:06
PROVIDERS: PCP Internal Medicine; Referring Provider Otolaryngology; Visit Provider Otolaryngology
DX: H81.11 Benign paroxysmal vertigo, right ear (principal)
CPT/HCPCS: 97161

== ENCOUNTER 2021-07-20 20:33 | Emergency (ER) | payer MEDICAID, SELFPAY ==
[2021-07-20 20:37] VITALS: BP 149/107; PULSE 102; RESP 22; TEMP 36.9; O2SAT 92; BMI 51.9
--- NOTE | 2021-07-20 21:43 | RAD_ITS ---
STUDY: X-RAY CHEST REASON FOR EXAM: Male, 55 years old. sob TECHNIQUE: Portable, upright, AP chest radiograph COMPARISON: 06/11/2021 FINDINGS: The lungs are clear and expanded. There is no demonstrated pleural abnormality. Normal size heart. Normal mediastinum and mo. Normal visualized pulmonary arteries. Normal visualized aortic arch and descending thoracic aorta. Normal visualized thoracic spine. Normal visualized ribs, clavicles, and shoulders. There is no demonstrated abnormality of the visualized soft tissue structures of the upper abdomen. RAD/Chest 1 View (Portable) IMPRESSION: Normal x-ray examination of the chest. Electronically Signed: Alf Treviño MD at 22:05 EDT Tel , Service support ,
[2021-07-20] MEDS: Ibuprofen 600 MG Tablet PO (21:45)
[2021-07-20 22:18] VITALS: O2SAT 91
[2021-07-20 22:19] VITALS: BP 136/78; PULSE 95; RESP 18; TEMP 36.3; O2SAT 94
--- NOTE | 2021-07-20 23:13 | ED.VIS.DYS ---
HPI History of Present Illness Chief Complaint: Shortness of Breath Informant: patient Narrative Narrative: Patient is a 55-year-old male with history of FREDERICK, hypertension and COPD presenting with worsening shortness of breath and cough. Patient's was diagnosed with COVID-19 infection 5 days ago. Patient started having sore throats about a week ago. Has been taking [id number] cough medicine with no relief. Tonight he became more short of breath despite using his breathing treatments so he came to the emergency room. Patient has been feeling weak and nauseous but denies any other complaints. Is not having chest pain. Denies any fever or chills. [facility] Medical History Asthma COPD (chronic obstructive pulmonary disease) Emphysema lung Former smoker HTN (hypertension) Hypertension FREDERICK (obstructive sleep apnea) Home Medications albuterol sulfate 1 puff INHALATION Q6H PRN PRN 04/05/20 [History Last Taken 04/05/20 09:00] lisinopril-hydrochlorothiazide 1 ea PO DAILY 12/17/20 [History Last Taken Unknown] brompheniramine-PPA [DayQuil Allergy 12-HR] 1 tab PO BID PRN 07/20/21 [History Last Taken Unknown] dexamethasone [Decadron] 6 mg PO DAILY #7 tab 07/20/21 [Rx Last Taken Unknown] Allergy/AdvReac Type Severity Reaction Status Date / Time Penicillins Allergy Unknown Verified 07/20/21 20:36 Family History Other COPD (chronic obstructive pulmonary disease) Surgical History History of left knee replacement Social History Smoking Status: Former smoker Tobacco: How many years used: 12 how long ago did patient quit smokin second hand exposure: Yes alcohol intake: never substance use type: does not use ROS ROS ED Constitutional Constitutional ED: Reports chills, malaise and other; Denies fever(s) Eyes Eyes: Denies blurry vision or loss of vision ENT ENT ED: Reports sore throat; Denies rhinorrhea Cardiovascular Cardiovascular: Denies chest pain or dizziness Respiratory/Chest Respiratory/Chest: Reports cough and dyspnea Gastrointestinal Gastrointestinal: Reports nausea; Denies abdominal pain or vomiting Genitourinary Genitourinary ED: Denies dysuria or hematuria Musculoskeletal Musculoskeletal: Reports myalgias; Denies arthralgias Integumentary Denies rash or wounds Neurologic Neurologic: Denies focal weakness or headache(s) Psychiatric Psychiatric: Denies anxiety or behavioral changes EXAM Physical Exam Const Vital Signs: 07/20/21 20:37 07/20/21 20:39 07/20/21 22:19 Temperature 98.5 F 97.4 F L Temperature Source Temporal Temporal Pulse Rate 102 H 95 Respiratory Rate 22 H 18 Respiratory Effort Short of Breath Respiratory Pattern Tachypnea Blood Pressure 149/107 H 136/78 H Blood Pressure Mean 121 97 Pulse Ox 92 94 Oxygen Delivery Method Room Air Room Air Positive well nourished, well developed and no apparent distress General Appearance ED: well developed HEENT Reports normocephalic, TM's clear and moist mucous membranes atraumatic Nose: no nasal discharge External Ear: external ears normal Tympanic Membrane ED: Yes TM's clear Mouth ED: Yes moist mucous membranes normal Eyes PERRL and EOMs intact bilaterally Neck full ROM, supple and no meningeal signs Chest Wall inspection of chest normal Resp normal respiratory effort and normal air movement Auscultation: wheezes expiratory wheezes and diminished lung sounds bilateral lower Cardio regular rate and regular rhythm GI normal to inspection, nondistended, normoactive bowel sounds Extremity normal to inspection and full ROM Neuro oriented x3 and no focal motor deficits Psych mental status grossly normal and thought process normal Skin no rashes or lesions noted and no wounds MDM MDM MDM Narrative Medical decision making narrative: Patient evaluated for increased shortness of breath in the setting of a Covid exposure. He is not had his Covid vaccine. He does test positive for Covid. Patient is ambulating emergency room and is not hypoxic. His oxygen goes as low as 92 percent. At this time patient does not require admission to the hospital. He is a candidate for monoclonal antibody therapy and will be referred for this. He is counseled return precautions. He verbalizes agreement understand with this plan. He will continue his breathing treatments at home as needed. Radiography Chest X-Ray - ED: 1 View, Read by ED Physician, Read by Radiologist and No Acute Disease Diagnostic Testing: Radiology Impression Chest X-Ray 07/20/21 21:43 IMPRESSION: Normal x-ray examination of the chest. Electronically Signed: Alf Treviño MD at 22:05 EDT Tel , Service support , Discharge Plan Triage Chief Complaint: Shortness of Breath ED Provider: Eleni Beatty Dx/Rx/DC Orders Clinical Impression: COVID-19 virus infection Instructions: Coronavirus Disease 2019 (COVID-19): Caring for Yourself or Others Prescriptions: New dexamethasone [Decadron] 6 mg tablet 6 mg PO DAILY Qty: 7 RF: 0 No Action albuterol sulfate 1 PUFF inhaler 1 puff inhalation Q6H PRN PRN (Reason: Wheezing) RF: 0 lisinopril-hydrochlorothiazide 1 EACH tablet 1 ea PO DAILY RF: 0 DayQuil Allergy 12-HR 12-75 mg Tablet Extended Release 12 Hr 1 tab PO BID PRN (Reason: Cold Symptoms) RF: 0 Other Ambulatory Orders: COVID Outpatient Monoclonal Antibody Referral (Routine) Location: None Selected Ordered By: Dr. Eleni Beatty Primary Care Provider: Anika Velazco Referrals: Anika Velazco MD [Primary Care Provider] - Disposition Disposition: Home, Self Care
== END 2021-07-20 23:45 | disposition home or self-care (01) ==
PROVIDERS: Emergency Provider Emergency Medicine; PCP Internal Medicine
DX: U07.1 COVID-19 (principal); J44.9 Chronic obstructive pulmonary disease, unspecified; I10 Essential (primary) hypertension; Z87.891 Personal history of nicotine dependence; Z79.899 Other long term (current) drug therapy
CPT/HCPCS: 71045; 87426; 99284

== ENCOUNTER 2021-11-24 21:04 | Emergency (ER) | payer MEDICAID, SELFPAY ==
[2021-11-24 21:05] VITALS: BP 157/95; PULSE 89; RESP 18; TEMP 36.6; O2SAT 96; BMI 48.7
--- NOTE | 2021-11-24 21:22 | EDS_ITS ---
HPI History of Present Illness Chief Complaint: Other, Pain/Inj Informant: patient Narrative Narrative: Planes of right shoulder and neck area pain. 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 He got some soreness over the right shoulder. He states it was from the right shoulder up to the side of the neck on the right. He states the neck is better. But is still sore on the top of the shoulder. He does not have chest pain, exertional symptoms, nausea vomiting or diaphoresis. It is worse if he moves his shoulder. 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 He states when he does this it aggravates the shoulder. No fevers or chills. No numbness tingling or weakness. Rest makes it better. Moving makes it a bit worse. [facility] Medical History Asthma COPD (chronic obstructive pulmonary disease) Emphysema lung Former smoker HTN (hypertension) Hypertension FREDERICK (obstructive sleep apnea) Home Medications albuterol sulfate 1 puff INHALATION Q6H PRN PRN 04/05/20 [History Last Taken 04/05/20 09:00] lisinopril-hydrochlorothiazide 1 ea PO DAILY 12/17/20 [History Last Taken Unknown] brompheniramine-PPA [DayQuil Allergy 12-HR] 1 tab PO BID PRN 07/20/21 [History Last Taken Unknown] cyclobenzaprine 10 mg PO BID PRN #10 tab 11/24/21 [Rx Last Taken Unknown] hydrocodone-acetaminophen 1 tab PO Q6H PRN 3 Days #10 tab 11/24/21 [Rx Last Taken Unknown] Allergy/AdvReac Type Severity Reaction Status Date / Time Penicillins Allergy Unknown Verified 11/24/21 21:07 Family History Other COPD (chronic obstructive pulmonary disease) Surgical History History of left knee replacement Social History Smoking Status: Former smoker Tobacco: How many years used: 12 how long ago did patient quit smokin second hand exposure: Yes alcohol intake: never substance use type: does not use ROS ROS ED Constitutional Constitutional ED: Denies chills or fever(s) Eyes Eyes: Denies blurry vision ENT ENT ED: Denies rhinorrhea Cardiovascular Cardiovascular: Denies chest pain or palpitations Respiratory/Chest Respiratory/Chest: Reports other Details: Patient has COPD but is not having any changes in his symptoms. He states he is on a lot of inhalers. He uses them sporadically when he needs them. ; Denies cough, dyspnea or sputum Gastrointestinal Gastrointestinal: Denies abdominal pain, nausea or vomiting Musculoskeletal Musculoskeletal: Reports myalgias, neck pain and other Details: See history of present illness ; Denies back pain Integumentary Reports rash Neurologic Neurologic: Denies headache(s), paresthesias or weakness Psychiatric Psychiatric: Denies depression Endocrine Endocrinology: Denies polydipsia or polyuria Allergic/Immunologic Allergic/Immunologic ED: Denies mouth swelling, tongue swelling or urticaria EXAM Physical Exam Const Vital Signs: 11/24/21 21:05 11/24/21 21:14 Temperature 97.9 F Temperature Source Temporal Pulse Rate 89 Respiratory Rate 18 Respiratory Effort Normal Respiratory Pattern Normal Blood Pressure 157/95 H Blood Pressure Mean 115 Pulse Ox 96 Oxygen Delivery Method Room Air Positive well nourished and well developed General Appearance ED: well developed and NAD; Negative for cyanotic or diaphoretic HEENT Reports moist mucous membranes HEENT Narrative: No rashes or tenderness. Eyes PERRL and EOMs intact bilaterally Neck no lymphadenopathy, supple and no JVD Neck Narrative: There is no lymphadenopathy. There is no tenderness in the neck. He can actually move his neck quite well. He states the pain in the neck is really much better and almost gone. I do not hear any carotid bruit on either side. Lymph Lymphatic Narrative: No lymphadenopathy. Chest Wall inspection of chest normal and palpation of chest normal Resp normal respiratory effort and clear to auscultation bilaterally Resp Narrative: No difficulty or pain with breathing at all. Effort and Inspection: Negative for pain with movement Auscultation: Negative for rales, rhonchi or wheezes Cardio regular rate, regular rhythm and no murmurs GI normal to inspection, nondistended, normoactive bowel sounds and non-tender Palpation: soft Back/Spine no CVA tenderness Extremity Extremity Narrative: Patient has palpable spasm mostly in the supraspinatus muscle of the right shoulder area. There is no actual pain with motion of the shoulder joint itself. There is some discomfort with shrug. There is discomfort with overhead motion. He can take deep breaths without any discomfort. There is really no pain with motion of the neck up down the left or right. 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 Sensorium / Orientation: alert Psych mental status grossly normal Mood & Affect: Negative for depressed Skin no rashes or lesions noted and no wounds Skin Narrative: No vesicles. MDM MDM MDM Narrative Medical decision making narrative: Patient presents with history and exam consistent with musculoskeletal pain. He has been trying [id number] Motrin without any help. I did do an online prescribing report. He has prescription for narcotics only twice at around the same time a year and a half ago. I do not think this patient seeking narcotic. 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 He can use ice and rest. I will get him some pain meds and muscle relaxant. Discharge Plan Triage Chief Complaint: Other, Pain/Inj ED Provider: Paulino Guan Dx/Rx/DC Orders Clinical Impression: Strain of right supraspinatus muscle, Cervical muscle strain Instructions: ED Neck Sprain or Strain Prescriptions: New hydrocodone-acetaminophen 5-325 mg tablet 1 tab PO Q6H PRN (Reason: pain) 3 Days Qty: 10 RF: 0 cyclobenzaprine 10 mg tablet 10 mg PO BID PRN (Reason: muscle spasm) Qty: 10 RF: 0 No Action albuterol sulfate 1 PUFF inhaler 1 puff inhalation Q6H PRN PRN (Reason: Wheezing) RF: 0 lisinopril-hydrochlorothiazide 1 EACH tablet 1 ea PO DAILY RF: 0 DayQuil Allergy 12-HR 12-75 mg Tablet Extended Release 12 Hr 1 tab PO BID PRN (Reason: Cold Symptoms) RF: 0 Primary Care Provider: Anika Velazco Referrals: Anika Velazco MD [Primary Care Provider] - 3-5 Days if not improving Activity Restrictions/Additional Instructions: Obtain Bluetooth headset as discussed. Ice and gentle massage to area. Return with worsening pain, swelling, fevers, numbness tingling, trouble breathing or chest pain. Disposition Disposition: Home, Self Care
[2021-11-24 22:08] VITALS: BP 145/84; PULSE 78; RESP 14; TEMP 36.3; O2SAT 98
[2021-11-24] MEDS: HYDROcodone Bitartrate/Apap 5/325 Tablet PO (22:14)
== END 2021-11-24 22:18 | disposition home or self-care (01) ==
PROVIDERS: Emergency Provider Emergency Medicine; PCP Internal Medicine; Visit Provider Emergency Medicine
DX: S46.011A Strain of muscle(s) and tendon(s) of the rotator cuff of right shoulder, initial encounter (principal); J44.9 Chronic obstructive pulmonary disease, unspecified; S16.1XXA Strain of muscle, fascia and tendon at neck level, initial encounter; I10 Essential (primary) hypertension; G47.33 Obstructive sleep apnea (adult) (pediatric); X58.XXXA Exposure to other specified factors, initial encounter; Z87.891 Personal history of nicotine dependence; Z79.899 Other long term (current) drug therapy
CPT/HCPCS: 99282

== ENCOUNTER 2022-05-13 14:22 | Emergency (ER) | payer MEDICAID, SELFPAY ==
[2022-05-13 14:23] VITALS: BP 148/135; PULSE 101; RESP 16; TEMP 36.1; O2SAT 95; BMI 47.9
--- NOTE | 2022-05-13 16:03 | EDS_ITS ---
HPI History of Present Illness Chief Complaint: Laceration Informant: patient Occured/Mechanism Comment: Laceration left third finger Onset/Context/Timing Onset: Today Narrative Narrative: Patient presents with a laceration to the left third finger. He was cutting chicken when the knife slipped. He is right-hand dominant. Last tetanus shot was within the past couple years. [facility] Medical History Asthma COPD (chronic obstructive pulmonary disease) Emphysema lung Former smoker HTN (hypertension) Hypertension FREDERICK (obstructive sleep apnea) Home Medications albuterol sulfate 90 mcg/actuation aerosol inhaler 1 puff inhalation Q6H PRN PRN Wheezing 04/05/20 [History Last Taken 04/05/20 09:00] lisinopril 10 mg-hydrochlorothiazide 12.5 mg tablet 1 ea PO DAILY 12/17/20 [History Last Taken Unknown] brompheniramine-phenylpropanol ER 12 mg-75 mg tablet,ext.release 12 hr 1 tab PO BID PRN Cold Symptoms 07/20/21 [History Last Taken Unknown] cyclobenzaprine 10 mg tablet 10 mg PO BID PRN muscle spasm #10 tabs 11/24/21 [Rx Last Taken Unknown] hydrocodone-acetaminophen 5-325mg 5mg-325mg 1 tab PO Q6H PRN pain 3 days #10 tabs 11/24/21 [Rx Last Taken Unknown] Allergy/AdvReac Type Severity Reaction Status Date / Time Penicillins Allergy Unknown Verified 05/13/22 14:23 Family History Other COPD (chronic obstructive pulmonary disease) Surgical History History of left knee replacement Social History Smoking Status: Former smoker Tobacco: How many years used: 12 how long ago did patient quit smokin second hand exposure: Yes alcohol intake: never substance use type: does not use ROS ROS ED Constitutional Constitutional ED: Denies chills or fever(s) Eyes Eyes: Denies change in vision or discharge from eye(s) ENT ENT ED: Denies discharge from eye(s), rhinorrhea or sore throat Cardiovascular Cardiovascular: Denies chest pain or palpitations Respiratory/Chest Respiratory/Chest: Denies cough or dyspnea Gastrointestinal Gastrointestinal: Denies abdominal pain, nausea or vomiting Genitourinary Genitourinary ED: Denies dysuria Musculoskeletal Musculoskeletal: Reports extremity pain; Denies back pain Integumentary Reports other Details: Left third finger laceration ; Denies Abrasions or rash Neurologic Neurologic: Denies headache(s), paresthesias or weakness Psychiatric Psychiatric: Denies anxiety or depression Allergic/Immunologic Allergic/Immunologic ED: Denies lip swelling or urticaria EXAM Physical Exam Const Vital Signs: 05/13/22 14:23 Temperature 97.0 F L Temperature Source Temporal Pulse Rate 101 H Respiratory Rate 16 Blood Pressure 148/135 H Blood Pressure Mean 139 Pulse Ox 95 Oxygen Delivery Method Room Air Positive well nourished and well developed General Appearance ED: well developed Eyes PERRL and EOMs intact bilaterally Neck full ROM Chest Wall inspection of chest normal and palpation of chest normal Resp normal respiratory effort and clear to auscultation bilaterally Cardio regular rate and regular rhythm GI non-tender Extremity Extremity Narrative: Skin avulsion to the distal aspect of the right third finger along the radial side. Full range of motion with good cap refill distally. Neuro oriented x3 and moves all extremities Psych mental status grossly normal MDM MDM MDM Narrative Medical decision making narrative: Patient's tetanus is already up-to-date. Digital block is performed with 1.5 cc 1% lidocaine. Wound is thoroughly cleansed and irrigated. Skin is avulsed and not amenable to suture. Surgifoam was placed across the wound with dressing. Wound care as discussed. Patient to follow-up with his PCP as needed. Discharge Plan Triage Chief Complaint: Laceration ED Provider: Lani España Dx/Rx/DC Orders Clinical Impression: Avulsion of skin of finger Instructions: ED Skin Avulsion Prescriptions: No Action albuterol sulfate 1 PUFF inhaler 1 puff inhalation Q6H PRN PRN (Reason: Wheezing) lisinopril-hydrochlorothiazide 1 EACH tablet 1 ea PO DAILY DayQuil Allergy 12-HR 12-75 mg Tablet Extended Release 12 Hr 1 tab PO BID PRN (Reason: Cold Symptoms) hydrocodone-acetaminophen 5-325 mg tablet 1 tab PO Q6H PRN (Reason: pain) 3 Days Qty: 10 0RF cyclobenzaprine 10 mg tablet 10 mg PO BID PRN (Reason: muscle spasm) Qty: 10 0RF Primary Care Provider: Anika Velazco Referrals: Anika Velazco MD [Primary Care Provider] - As Needed Disposition Disposition: Home, Self Care
== END 2022-05-13 16:34 | disposition home or self-care (01) ==
LOC: ED 16:33
PROVIDERS: Emergency Provider Emergency Medicine; PCP Internal Medicine; Visit Provider Emergency Medicine
DX: S61.213A Laceration without foreign body of left middle finger without damage to nail, initial encounter (principal); G47.33 Obstructive sleep apnea (adult) (pediatric); Z87.891 Personal history of nicotine dependence; W26.0XXA Contact with knife, initial encounter
CPT/HCPCS: 99281; 99283

== ENCOUNTER 2022-06-21 15:26 | Emergency (ER) | payer MEDICAID, SELFPAY ==
[2022-06-21 15:27] VITALS: BP 156/104; PULSE 88; RESP 16; TEMP 36.3; O2SAT 95; BMI 51.7
[2022-06-21 15:50] LABS: Bedside Glucose 89 mg/dL (74-106)
--- NOTE | 2022-06-21 16:51 | EX.ED.DYSGE1 ---
HPI History of Present Illness Chief Complaint: Dizziness Narrative Narrative: 56-year-old male presenting with vertiginous dizziness. He states is been going on for most of the day. He was able to walk to work which he estimates is about a 5-minute walk. When he arrived at work he was very dizzy and his coworker told him to come get checked out in the emergency room. He denies headache. He has mild nausea but has been eating well today. The nausea is only was the dizziness episodes. No abdominal pain. He is not having chest pain, palpitations, shortness of breath. He has not had fever, chills, body aches. No history of head trauma. [facility] Medical History Asthma COPD (chronic obstructive pulmonary disease) Emphysema lung Former smoker HTN (hypertension) Hypertension FREDERICK (obstructive sleep apnea) Home Medications albuterol sulfate 90 mcg/actuation aerosol inhaler 1 puff inhalation Q6H PRN PRN Wheezing 04/05/20 [History Last Taken 04/05/20 09:00] lisinopril 10 mg-hydrochlorothiazide 12.5 mg tablet 1 ea PO DAILY 12/17/20 [History Last Taken Unknown] brompheniramine-phenylpropanol ER 12 mg-75 mg tablet,ext.release 12 hr 1 tab PO BID PRN Cold Symptoms 07/20/21 [History Last Taken Unknown] cyclobenzaprine 10 mg tablet 10 mg PO BID PRN muscle spasm #10 tabs 11/24/21 [Rx Last Taken Unknown] hydrocodone-acetaminophen 5-325mg 5mg-325mg 1 tab PO Q6H PRN pain 3 days #10 tabs 11/24/21 [Rx Last Taken Unknown] meclizine 25 mg tablet 25 mg PO TID PRN dizziness #30 tabs 06/21/22 [Rx Last Taken Unknown] Allergy/AdvReac Type Severity Reaction Status Date / Time Penicillins Allergy Unknown Verified 05/13/22 14:23 Family History Other COPD (chronic obstructive pulmonary disease) Surgical History History of left knee replacement Social History Smoking Status: Former smoker Tobacco: How many years used: 12 how long ago did patient quit smokin second hand exposure: Yes alcohol intake: never substance use type: does not use ROS ROS ED Constitutional Constitutional ED: Denies chills or fever(s) Eyes Eyes: Reports other Details: Vertiginous dizziness ENT ENT ED: Denies rhinorrhea or sore throat Cardiovascular Cardiovascular: Denies chest pain or palpitations Respiratory/Chest Respiratory/Chest: Denies cough or dyspnea Gastrointestinal Gastrointestinal: Reports nausea; Denies abdominal pain or constipation Genitourinary Genitourinary ED: Denies dysuria or hematuria Musculoskeletal Musculoskeletal: Denies arthralgias Integumentary Denies abscess or Abrasions Neurologic Neurologic: Denies headache(s) Psychiatric Psychiatric: Denies anxiety or depression EXAM Physical Exam Const Vital Signs: 06/21/22 15:27 06/21/22 15:27 06/21/22 17:16 Temperature 97.3 F L 97.3 F L Temperature Source Temporal Temporal Pulse Rate 88 88 Respiratory Rate 16 16 Respiratory Pattern Normal Blood Pressure 156/104 H 156/104 H Blood Pressure Mean 121 121 Pulse Ox 95 95 Oxygen Delivery Method Room Air Room Air Positive well nourished General Appearance ED: NAD HEENT Reports moist mucous membranes trauma Eyes PERRL and EOMs intact bilaterally Eyes Narrative: Vertiginous dizziness and nystamus with john hallpike bilaterally. Chest Wall inspection of chest normal Resp normal respiratory effort and clear to auscultation bilaterally Auscultation: Negative for rales, rhonchi or wheezes Cardio regular rate and regular rhythm GI normal to inspection, nondistended, normoactive bowel sounds Back/Spine no CVA tenderness Extremity General Extremety ED: Negative for edema or tenderness General Extremity: Negative for edema Neuro oriented x3 and CN's II-XII intact bilaterally Sensorium / Orientation: alert MDM MDM MDM Narrative Medical decision making narrative: Presenting with reproducible vertiginous dizziness. Patient has positive John-Hallpike bilaterally. Patient was given an IM dose of Phenergan 12.5 mg and a dose of 25 mg of meclizine. On reevaluation at 630 the patient feels like his dizziness is better. He is a little bit tired from the medications. He is able to walk. I will give prescription for this for home. After discussion he does recall that he had vertigo before and this does feel similar. I feel patient is stable for discharge. Impression: 1. Benign positional vertigo Lab Data Attestation: I reviewed the patient's lab results. Labs: Laboratory Results - last 24 hr 06/21/22 15:30 POC Glucose 89 Discharge Plan Triage Chief Complaint: Dizziness ED Provider: Carlos Meyers Dx/Rx/DC Orders Instructions: ED BPV Vertigo Prescriptions: New meclizine 25 mg tablet 25 mg PO TID PRN (Reason: dizziness) Qty: 30 0RF No Action albuterol sulfate 1 PUFF inhaler 1 puff inhalation Q6H PRN PRN (Reason: Wheezing) lisinopril-hydrochlorothiazide 1 EACH tablet 1 ea PO DAILY DayQuil Allergy 12-HR 12-75 mg Tablet Extended Release 12 Hr 1 tab PO BID PRN (Reason: Cold Symptoms) hydrocodone-acetaminophen 5-325 mg tablet 1 tab PO Q6H PRN (Reason: pain) 3 Days Qty: 10 0RF cyclobenzaprine 10 mg tablet 10 mg PO BID PRN (Reason: muscle spasm) Qty: 10 0RF Primary Care Provider: Anika Velazco Referrals: Anika Velazco MD [Primary Care Provider] - Disposition Disposition: Home, Self Care
[2022-06-21] MEDS: Meclizine HCl 25 MG Tablet PO (16:58)
[2022-06-21] MEDS: proMETHazine 25 MG/ML Syringe 12.5 MG IM (16:59)
== END 2022-06-21 18:59 | disposition home or self-care (01) ==
PROVIDERS: Emergency Provider Student in an Organized Health Care Education/Training Program; PCP Internal Medicine; Visit Provider Student in an Organized Health Care Education/Training Program
DX: H81.23 Vestibular neuronitis, bilateral (principal); J43.9 Emphysema, unspecified; I10 Essential (primary) hypertension; Z79.899 Other long term (current) drug therapy; Z87.891 Personal history of nicotine dependence
CPT/HCPCS: 82962; 96372; 99283

== ENCOUNTER 2022-10-24 13:39 | Emergency (ER) | payer MEDICAID, SELFPAY ==
[2022-10-24 13:41] VITALS: BP 158/94; PULSE 99; RESP 18; TEMP 36.1; O2SAT 95; BMI 47.2
== END 2022-10-24 17:47 | disposition left against medical advice (07) ==
LOC: ED 17:46
PROVIDERS: PCP Internal Medicine
DX: Z53.21 Procedure and treatment not carried out due to patient leaving prior to being seen by health care provider (principal)

== ENCOUNTER 2022-11-07 02:46 | Emergency (ER) | payer MEDICAID, SELFPAY ==
[2022-11-07 02:48] VITALS: BP 180/101; PULSE 90; RESP 15; TEMP 36; O2SAT 96; BMI 47.7
[2022-11-07 02:51] VITALS: BP 180/101; PULSE 83; RESP 18; TEMP 37.1; O2SAT 98
[2022-11-07 02:55] VITALS: O2SAT 97
[2022-11-07] MEDS: Fluorescein 1 MG STRIP 1 STRIP OPHTHALMIC (03:12)
[2022-11-07] MEDS: Benzonatate 100 MG Capsule 200 MG PO (03:12)
[2022-11-07] MEDS: Ipratropium/Albuterol Sulfate 3 ML AMPUL.NEB INHALATION (03:17)
[2022-11-07 03:18] VITALS: PULSE 82; RESP 18
[2022-11-07 03:28] LABS: Absolute Lymphocyte Count 2.51 X10^3/uL (0.83-4.51); Absolute Neutrophil Count 3.3 X10^3/uL (2.0-7.7); Basophil# 0.03 X10^3/uL; Basophil% 0.4 % (0-1); Eosinophil# 0.33 X10^3/uL; Eosinophils% 4.4 % (0-5); Hematocrit 45.4 % (40-54); Hemoglobin 14.7 g/dL (13.0-16.5); Lymphocyte # 2.51 X10^3/ul (0.83-4.51); Lymphocyte % 33.4 % (19-41); Mean Corp Hgb Conc 32.4 g/dL (32-36); Mean Corpuscular Hgb 30.6 pg (27.0-32.0); Mean Corpuscular Volume 94.6 fL (80-94); Mean Platelet Vol. 12.2 fl (6.2-12.0); Monocyte# 1.36 X10^3/uL; Monocyte% 18.1 % (0-10); NRBC Flagged by Analyzer 0 % (0-5); Neutrophil # 3.27 X10^3/uL (2.7-7.7); Neutrophil % 43.4 % (47-70); Platelet Count 202 K/mm3 (150-450); RBC Distribution Width CV 13.1 % (11.6-14.6); RBC Distribution Width SD 45.2 fl (35.1-43.9); White Blood Count 7.5 K/mm3 (4.4-11.0)
--- NOTE | 2022-11-07 03:29 | EDS_ITS ---
HPI History of Present Illness Chief Complaint: Shortness of Breath Informant: patient Narrative Narrative: Patient is a 56-year-old male with history of obstructive sleep apnea, COPD/emphysema hypertension, medication noncompliance and obesity presenting with multiple complaints including flulike symptoms, drainage from his right ear as well as left eye pain. Patient states he has been short of breath and coughing for the past 3 to 4 days. He has pain on the right side of his chest with coughing. No subjective fever. He has been having wheezing. He states he does not have any inhalers at home because he ran out. He also notes for the past month he is having drainage from his right ear that he has been trying to keep clean. Denies any significant ear pain. He also thinks he might of gotten something in his left eye at work recently is concern for corneal abrasion/foreign body. Patient denies any ibuprofen or Tylenol prior to arrival. No other complaints at this time. [facility] Medical History Asthma COPD (chronic obstructive pulmonary disease) Emphysema lung Former smoker HTN (hypertension) Hypertension FREDERICK (obstructive sleep apnea) Home Medications albuterol sulfate 90 mcg/actuation aerosol inhaler 1 puff inhalation Q6H PRN PRN Wheezing 04/05/20 [History Last Taken 04/05/20 09:00] lisinopril 10 mg-hydrochlorothiazide 12.5 mg tablet 1 ea PO DAILY 12/17/20 [History Last Taken Unknown] brompheniramine-phenylpropanol ER 12 mg-75 mg tablet,ext.release 12 hr 1 tab PO BID PRN Cold Symptoms 07/20/21 [History Last Taken Unknown] albuterol sulfate 2.5 mg/0.5 mL solution for nebulization 2.5 mg (0.5 mL) inhalation Q6H PRN shortness of breath or wheezing #30 ea 11/07/22 [Rx Last Taken Unknown] albuterol sulfate 90 mcg/actuation aerosol inhaler (ProAir HFA) 1 inh inhalation Q6H PRN shortness of breath or wheezing #8.5 grams 11/07/22 [Rx Last Taken Un known] prednisone 20 mg tablet 40 mg PO DAILY #8 tabs 11/07/22 [Rx Last Taken Unknown] Allergy/AdvReac Type Severity Reaction Status Date / Time Penicillins Allergy Unknown Verified 11/07/22 02:51 Family History Father COPD (chronic obstructive pulmonary disease) Mother Breast cancer Surgical History History of left knee replacement S/P ear surgery Social History Smoking Status: Former smoker Tobacco: How many years used: 12 how long ago did patient quit smokin second hand exposure: Yes alcohol intake: never substance use type: does not use ROS ROS ED Constitutional Constitutional ED: Reports chills and fever(s) Eyes Eyes: Reports other Details: left eye pain ; Denies change in vision ENT ENT ED: Reports rhinorrhea and other Details: nasal congestion, right ear drainage x 1 month ; Denies ear pain Cardiovascular Cardiovascular: Reports chest pain; Denies palpitations Respiratory/Chest Respiratory/Chest: Reports cough and dyspnea Gastrointestinal Gastrointestinal: Denies abdominal pain, nausea or vomiting Genitourinary Genitourinary ED: Denies dysuria or hematuria Musculoskeletal Musculoskeletal: Reports myalgias; Denies arthralgias Integumentary Denies rash Neurologic Neurologic: Reports headache(s); Denies paresthesias Psychiatric Psychiatric: Denies anxiety Hematologic/Lymphatic Hematologic/Lymphatic: Denies easy bleeding or easy bruising EXAM Physical Exam Const Vital Signs: 11/07/22 02:48 11/07/22 02:51 11/07/22 02:55 Temperature 96.8 F L 98.7 F Temperature Source Temporal Temporal Pulse Rate 90 83 Respiratory Rate 15 18 Respiratory Effort Short of Breath Respiratory Depth Normal Respiratory Pattern Normal Blood Pressure 180/101 H 180/101 H Blood Pressure Mean 127 127 Pulse Ox 96 98 Oxygen Delivery Method Room Air Room Air Room Air 11/07/22 03:18 11/07/22 05:12 Temperature Temperature Source Pulse Rate 82 73 Respiratory Rate 18 18 Respiratory Effort Respiratory Depth Respiratory Pattern Blood Pressure 145/81 H Blood Pressure Mean Pulse Ox 97 Oxygen Delivery Method Positive well nourished, well developed and obese General Appearance ED: well developed and NAD Nutritional Appearance: obese HEENT Reports moist mucous membranes HEENT Narrative: Erythematous and likely perforated right tympanic membrane. Evidence of prior surgery on the left so difficult to visualize the tympanic membrane. Normal oropharynx. atraumatic Eyes PERRL and EOMs intact bilaterally Eyes Narrative: No conjunctival injection appreciated Neck supple and no JVD Resp normal respiratory effort Resp Narrative: No wheezing appreciated. Diminished breath sounds throughout. Effort and Inspection: pain with movement Cardio regular rate, regular rhythm and no murmurs GI non-tender and non-distended Extremity General Extremety ED: Yes edema; Negative for tenderness General Extremity: edema Neuro oriented x3 Neuro Narrative: No focal deficits appreciated Sensorium / Orientation: alert Motor Exam: general weakness Psych mental status grossly normal Skin no wounds Rashes: no rashes MDM MDM MDM Narrative Medical decision making narrative: Patient is evaluated for flulike symptoms. Also having shortness of breath and estimates breath sounds on exam. Patient is given a DuoNeb with improvement of his respiratory symptoms. Patient has positive for COVID-19. Chest x-ray does not show any acute process. Patient has a normal white blood cell count and is afebrile. He has hypertensive however he admits that he is noncompliant with his antihypertensives. He also ran out of his breathing treatments at home. He does have a nebulizer. I suspect patient is having a COPD exacerbation for thom cheung triggered by COVID-19 infection. Patient is ambulated in the ER does not have any hypoxia. He has symptomatic improvement with breathing treatment. 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 No signs of corneal abrasion/ulceration or foreign body on fluorescein exam of the left eye. Patient symptoms been present for more than 5 days and is no longer candidate for Paxlovid. Patient given return precautions. 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 Patient is given a work note. Lab Data Attestation: I reviewed the patient's lab results. Labs: Laboratory Results - last 24 hr 11/07/22 11/07/22 11/07/22 02:51 02:51 02:51 WBC 7.5 RBC 4.80 Hgb 14.7 Hct 45.4 MCV 94.6 H MCH 30.6 MCHC 32.4 RDW Std Deviation 45.2 H RDW Coeff of [place] 13.1 Plt Count 202 MPV 12.2 H Immature Gran % (Auto) 0.300 Neut % (Auto) 43.4 L Lymph % (Auto) 33.4 Branch % (Auto) 18.1 H Eos % (Auto) 4.4 Baso % (Auto) 0.4 Absolute Neuts (auto) 3.3 Absolute Lymphs (auto) 2.51 Nucleated RBC % 0 Sodium 141 Potassium 3.6 Chloride 105 Carbon Dioxide 32.0 Anion Gap 4 L BUN 14 Creatinine 0.94 Estim Creat Clear Calc 86.70 Est GFR (MDRD) Af Amer 106 Est GFR (MDRD) Non-Af 88 BUN/Creatinine Ratio 14.9 Glucose 91 Calcium 8.7 Troponin I High Sens 15 B-Natriuretic Peptide 3.6 Radiography Chest X-Ray - ED: 2 View, Read by ED Physician, Read by Radiologist and No Infiltrates Diagnostic Testing: Clinical Impression(s) from Imaging Studies Chest X-Ray 11/07/22 03:30 IMPRESSION: Normal x-ray examination of the chest. Electronically Signed: Cruz Sherman MD at 4:03 EST Reading Location ID and State: [facility] / [place] Tel , Service support , Rhythm Strip Rhythm Strip: Sinus Rhythm Rate: 84 Ectopy: None EKG Initial EKG: Attestation: I personally reviewed and interpreted this EKG as follows: Interpretation: Sinus Rhythm Comments: Normal sinus rhythm at a rate of 84 bpm Normal axis Normal intervals Normal ST segments Discharge Plan Triage Chief Complaint: Shortness of Breath ED Provider: Eleni Beatty Dx/Rx/DC Orders Clinical Impression: COVID-19 virus infection, Perforated right tympanic membrane on examination, HTN (hypertension), COPD with acute exacerbation Instructions: Coronavirus Disease 2019 (COVID-19): Caring for Yourself or Others, ED COPD Flare, ED Ruptured Eardrum, Traumatic Prescriptions: New albuterol sulfate [ProAir HFA] 90 mcg/actuation HFA aerosol inhaler 1 inh inhalation Q6H PRN (Reason: shortness of breath or wheezing) Qty: 8.5 0RF albuterol sulfate 2.5 mg/0.5 mL solution for nebulization 2.5 mg inhalation Q6H PRN (Reason: shortness of breath or wheezing) Qty: 30 0RF Rx Instructions: for up to 3 doses prednisone 20 mg tablet 40 mg PO DAILY Qty: 8 0RF No Action albuterol sulfate 1 PUFF inhaler 1 puff inhalation Q6H PRN PRN (Reason: Wheezing) lisinopril-hydrochlorothiazide 1 EACH tablet 1 ea PO DAILY DayQuil Allergy 12-HR 12-75 mg Tablet Extended Release 12 Hr 1 tab PO BID PRN (Reason: Cold Symptoms) Stand Alone Forms: ED Work / School Excuse Primary Care Provider: Anika Velazco Referrals: Alex Castillo MD [Med Staff - Active Staff] - As Needed Anika Velazco MD [Primary Care Provider] - Disposition Disposition: Home, Self Care Discharge Date/Time: 11/07/22 05:14
--- NOTE | 2022-11-07 03:30 | RAD_ITS ---
STUDY: X-RAY CHEST REASON FOR EXAM: Male, 56 years old. cough, sob TECHNIQUE: Single AP portable view of the chest. COMPARISON: None. FINDINGS: The lungs are clear and expanded. There is no demonstrated pleural abnormality. Normal size heart. Normal mediastinum and mo. Normal visualized pulmonary arteries. Normal visualized aortic arch and descending thoracic aorta. Normal visualized thoracic spine. Normal visualized ribs, clavicles, and shoulders. There is no demonstrated abnormality of the visualized soft tissue structures of the upper abdomen. RAD/Chest PA and Lateral IMPRESSION: Normal x-ray examination of the chest. Electronically Signed: Cruz Sherman MD at 4:03 EST ,
[2022-11-07] MEDS: Acetaminophen 325 MG Tablet 650 MG PO (03:45)
[2022-11-07 03:49] LABS: BNP,B-Type NATRIURETIC PEPTIDE 3.6 pg/mL (0-100)
[2022-11-07 04:02] LABS: Anion Gap 4 (5-15); BUN 14 mg/dL (7-18); BUN/Creat Ratio 14.9 RATIO (10-20); Calcium,Total 8.7 mg/dL (8.5-10.1); Chloride 105 mmol/L (98-107); Creatinine, Serum 0.94 mg/dL (0.70-1.30); EST Glomerular Filtration Rate 88 mL/min (>60); Est Glom Filt Rate - Afr Amer 106 mL/min (>60); Glucose 91 mg/dL (74-106); Potassium 3.6 mmol/L (3.5-5.1); Sodium Level 141 mmol/L (136-145); Troponin-I HS 15 pg/mL (3.0-78.0)
[2022-11-07 05:07] VITALS: O2SAT 97
[2022-11-07] MEDS: predniSONE 20 MG Tablet 60 MG PO (05:07)
[2022-11-07 05:12] VITALS: BP 145/81; PULSE 73; RESP 18; O2SAT 97
== END 2022-11-07 05:14 | disposition home or self-care (01) ==
PROVIDERS: Emergency Provider Emergency Medicine; PCP Internal Medicine; Visit Provider Emergency Medicine
DX: U07.1 COVID-19 (principal); J43.9 Emphysema, unspecified; H72.91 Unspecified perforation of tympanic membrane, right ear; E66.9 Obesity, unspecified; H57.12 Ocular pain, left eye; I10 Essential (primary) hypertension; R06.02 Shortness of breath; R07.9 Chest pain, unspecified; R51.9 Headache, unspecified; Z79.52 Long term (current) use of systemic steroids; Z87.891 Personal history of nicotine dependence
CPT/HCPCS: 71046; 80048; 83880; 84484; 85025; 87428; 93005; 94640; 99284; A4216

== ENCOUNTER 2022-12-06 14:59 | Emergency (ER) | payer MEDICAID, SELFPAY ==
[2022-12-06 15:00] VITALS: BP 157/83; PULSE 76; RESP 15; TEMP 36.6; O2SAT 98; BMI 48.7
--- NOTE | 2022-12-06 16:05 | CT_ITS ---
STUDY: CT ABDOMEN AND PELVIS WITHOUT CONTRAST REASON FOR EXAM: Male, 56 years old. left flank pain RADIATION DOSAGE (If Supplied By Facility): CTDIvol = ( 32.66 ) mGy, DLP = ( 1811.28 ) mGycm TECHNIQUE: Transaxial images were obtained from the dome of the diaphragm to the symphysis pubis without oral contrast, and without intravenous contrast. Sagittal and coronal images were reconstructed. Individualized dose optimization techniques were used for this CT. COMPARISON: None. FINDINGS: The visualized lung bases are unremarkable. The visualized portions of the heart are within normal limits. There is no coronary artery calcification observed. Normal liver. Multiple calcified stones in the gallbladder without evidence for acute inflammation. Normal spleen. Normal pancreas. Normal bilateral adrenal glands. No evidence for renal obstruction. There is a cortical cyst in the lower pole of the right kidney which will not require additional imaging . There is mild nonspecific stranding in the left perinephric fat possibly due to recent passage of a stone or inflammatory disease. Normal visualized stomach. Normal small intestine. Normal colon. The appendix is visualized and appears normal. Normal abdominal aorta. Normal inferior vena cava. Normal retroperitoneum. Small calcified density in the anterior mediastinal fat likely benign node. Normal urinary bladder. Normal abdominal wall. Lumbar spine demonstrates degenerative changes CT/Abdomen/Pelvis without Cont IMPRESSION: Cholelithiasis without evidence for acute cholecystitis.. No evidence for renal obstruction however there does appear to be mild nonspecific stranding in the perinephric fat of the left kidney possibly due to recent passage of stone or inflammatory disease. Small right renal cyst which will not require additional imaging. Electronically Signed: Asim Zhang MD at 16:51 EST ,
--- NOTE | 2022-12-06 16:08 | EDS_ITS ---
HPI History of Present Illness Chief Complaint: Back Informant: patient Narrative Narrative: Patient has been having lower back pain mostly on the left side for approximately 6 days. He thinks he started last . 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 But he is not sure if he hurt himself or not. He has never had radicular symptoms. The pain in the left does radiate a little to the side but not to the front of his abdomen. He denies any nausea vomiting or change in appetite. He has been eating and drinking normally. He has been moving his bowels normally. He urinates normally. There is no change in color or odor frequency or discomfort. He has not seen blood. The pain is very motion sensitive. He can get in certain positions where he has almost no pain. But any motion and twisting or sitting up hurts. He states he wishes he had a lift chair at home because I would make getting out of the chair easier. He does admit to some long-term difficulty getting up out of the chair likely due to his weight. He occasionally has back pain but he has not had it last this long. He has had some neck pain in the past. He has tried [id number] Tylenol Motrin and aspirin without benefit. [facility] Medical History Asthma COPD (chronic obstructive pulmonary disease) Emphysema lung Former smoker HTN (hypertension) Hypertension FREDERICK (obstructive sleep apnea) Home Medications albuterol sulfate 90 mcg/actuation aerosol inhaler 1 puff inhalation Q6H PRN PRN Wheezing 04/05/20 [History Last Taken 04/05/20 09:00] lisinopril 10 mg-hydrochlorothiazide 12.5 mg tablet 1 ea PO DAILY 12/17/20 [History Last Taken Unknown] brompheniramine-phenylpropanol ER 12 mg-75 mg tablet,ext.release 12 hr 1 tab PO BID PRN Cold Symptoms 07/20/21 [History Last Taken Unknown] albuterol sulfate 2.5 mg/0.5 mL solution for nebulization 2.5 mg (0.5 mL) inhalation Q6H PRN shortness of breath or wheezing #30 ea 11/07/22 [Rx Last Taken Unknown] albuterol sulfate 90 mcg/actuation aerosol inhaler (ProAir HFA) 1 inh inhalation Q6H PRN shortness of breath or wheezing #8.5 grams 11/07/22 [Rx Last Taken Unknown] prednisone 20 mg tablet 40 mg PO DAILY #8 tabs 11/07/22 [Rx Last Taken Unknown] cyclobenzaprine 10 mg tablet 10 mg PO TID PRN Muscle Spasm #20 TABLETS 12/06/22 [Rx Last Taken Unknown] hydrocodone-acetaminophen 5-325mg 5mg-325mg 1 tab PO Q6H PRN PRN Pain 3 days #10 TABLETS 12/06/22 [Rx Last Taken Unknown] Allergy/AdvReac Type Severity Reaction Status Date / Time Penicillins Allergy Unknown Verified 12/06/22 15:00 Family History Father COPD (chronic obstructive pulmonary disease) Mother Breast cancer Surgical History History of left knee replacement S/P ear surgery Social History Smoking Status: Former smoker Tobacco: How many years used: 12 how long ago did patient quit smokin second hand exposure: Yes alcohol intake: never substance use type: does not use ROS ROS ED Constitutional Constitutional ED: Denies chills, fever(s) or subjective Eyes Eyes: Denies change in vision ENT ENT ED: Denies rhinorrhea or sore throat Cardiovascular Cardiovascular: Denies chest pain, palpitations or racing heartbeat Respiratory/Chest Respiratory/Chest: Denies dyspnea Gastrointestinal Gastrointestinal: Denies abdominal pain, constipation, diarrhea, melena, nausea or vomiting Genitourinary Genitourinary ED: Denies dysuria, hematuria or urinary frequency Musculoskeletal Musculoskeletal: Reports back pain; Denies myalgias Integumentary Denies Abrasions or rash Neurologic Neurologic: Denies headache(s), paresthesias or weakness Endocrine Endocrinology: Denies polydipsia or polyuria Hematologic/Lymphatic Hematologic/Lymphatic: Denies easy bleeding or easy bruising Allergic/Immunologic Allergic/Immunologic ED: Denies urticaria EXAM Physical Exam Narrative Exam Narrative: Patient is awake alert no acute distress. He is laying in bed typing on the phone. HEENT shows no sign of trauma. Neck shows no tenderness or pain with motion. Heart is regular no murmur gallop rub or distant tones. Lungs are clear bilaterally. Abdomen is obese but benign. There is absolutely no tenderness that I can elicit anywhere in the abdomen including none at the left lower quadrant. No rebound or guarding. He does not really have CVA tenderness. Back: He does have some mild tenderness to the left paraspinal mostly. Minimal on the right. This is down very low just above the sacrum. But I see no skin changes in this area. He states the pain on the left side goes toward what he describes as the left hip. But it does not wrap around. It is also not tender in these areas. Patient does have clear soreness and reproduction with motion twisting and sitting up. Extremities show chronic edema and venous stasis changes and prior surgical scars but no acute abnormality. No erythema or warmth. No tenderness. No asymmetry. He does have intact peripheral pulses Neurologic shows sensation and strength are intact. Const Vital Signs: 12/06/22 15:00 12/06/22 16:46 12/06/22 17:07 Temperature 97.9 F Temperature Source Temporal Pulse Rate 76 79 82 Respiratory Rate 15 18 19 H Blood Pressure 157/83 H 180/93 H 180/93 H Blood Pressure Mean 107 122 122 Pulse Ox 98 97 97 Oxygen Delivery Method Room Air Room Air Room Air MDM MDM MDM Narrative Medical decision making narrative: Patient's exam and history is most consistent with myofascial pain. However, his CT does show some changes. My independent interpretation of his CT shows some mild stranding around the kidney. I see no diverticulitis. There is a large gallstone but no sign of fluid or inflammation. 5 reading shows similar findings but does indicate perinephric stranding possibly from a passed stone. They also noted a right renal cyst. I did add urinalysis. No sign of infection or blood. This patient's symptoms are still more consistent with myofascial back pain. Although he could have passed a stone recently so we will treat him as that. His pain is starting to come back. I will give him some meds for pain for a few days but I will also give him a muscle relaxant because his history is still more myofascial. He still has no abdominal pain or tenderness. I do not think blood work is going to change our diagnosis or treatment at this point. Lab Data Attestation: I reviewed the patient's lab results. Labs: Laboratory Results - last 24 hr 12/06/22 18:05 Urine Color Yellow Urine Clarity Clear Urine pH 7.0 Ur Specific [place] 1.010 Urine Protein Negative Urine Glucose (UA) Normal Urine Ketones Negative Urine Occult Blood Negative Urine Nitrite Negative Urine Bilirubin Negative Urine Urobilinogen Normal Ur Leukocyte Esterase 25 H Urine RBC 0 SEEN Urine WBC 0 SEEN Ur Squamous Epith Cells 0-5 SEEN Urine Bacteria 0 SEEN Urine Mucus 0 SEEN Radiography Diagnostic Testing: Clinical Impression(s) from Imaging Studies Abdomen/Pelvis CT 12/06/22 16:05 IMPRESSION: Cholelithiasis without evidence for acute cholecystitis.. No evidence for renal obstruction however there does appear to be mild nonspecific stranding in the perinephric fat of the left kidney possibly due to recent passage of stone or inflammatory disease. Small right renal cyst which will not require additional imaging. Electronically Signed: Asim Zhang MD at 16:51 EST Reading Location ID and State: [facility] / [place] , Service support , Discharge Plan Triage Chief Complaint: Back ED Provider: Paulino Guan Dx/Rx/DC Orders Clinical Impression: Back pain, Ureterolithiasis Instructions: ED Back Pain (Acute or Chronic), ED Kidney Stone, Passed Prescriptions: New cyclobenzaprine [cyclobenzaprine] 10 mg tablet 10 mg PO TID PRN (Reason: Muscle Spasm) Qty: 20 0RF hydrocodone-acetaminophen [hydrocodone-acetaminophen] 5-325 mg tablet 1 tab PO Q6H PRN PRN (Reason: Pain) 3 Days Qty: 10 0RF No Action albuterol sulfate 1 PUFF inhaler 1 puff inhalation Q6H PRN PRN (Reason: Wheezing) lisinopril-hydrochlorothiazide 1 EACH tablet 1 ea PO DAILY DayQuil Allergy 12-HR 12-75 mg Tablet Extended Release 12 Hr 1 tab PO BID PRN (Reason: Cold Symptoms) albuterol sulfate [ProAir HFA] 90 mcg/actuation HFA aerosol inhaler 1 inh inhalation Q6H PRN (Reason: shortness of breath or wheezing) Qty: 8.5 0RF albuterol sulfate 2.5 mg/0.5 mL solution for nebulization 2.5 mg inhalation Q6H PRN (Reason: shortness of breath or wheezing) Qty: 30 0RF Rx Instructions: for up to 3 doses prednisone 20 mg tablet 40 mg PO DAILY Qty: 8 0RF Primary Care Provider: Anika Velazco Referrals: Anika Velazco MD [Primary Care Provider] - 3-5 Days Disposition Disposition: Home, Self Care
[2022-12-06] MEDS: oxyCODONE 5 MG Tablet PO ×2 (16:13→20:23)
[2022-12-06 16:46] VITALS: BP 180/93; PULSE 79; RESP 18; O2SAT 97
[2022-12-06 17:07] VITALS: BP 180/93; PULSE 82; RESP 19; O2SAT 97
[2022-12-06 18:14] LABS: Bacteria 0 SEEN /hpf (None Seen); Mucous, Urine 0 SEEN /hpf (<or=2+); Red Blood Cells-Urine 0 SEEN /hpf (0-5); White Blood Cells 0 SEEN /hpf (0-5)
[2022-12-06 18:16] LABS: Color, Urine Yellow (Yellow); Glucose, Dipstick Normal (Normal); Ketone-Dipstick Negative (Negative); Leukocyte Esterase-Dipstick 25 /ul (Negative); Nitrite-Dipstick Negative (Negative); Occult Blood-Urine Negative /ul (Negative); Protein-Dipstick Negative (Negative); Urine Bilirubin Dipstick Negative (Negative); Urine Clarity Clear (Clear); Urine Urobilinogen Normal (Normal)
[2022-12-06 19:01] LABS: Squamous Epithelial Cells - UA 0-5 SEEN /hpf (0-5)
[2022-12-06 20:18] VITALS: BP 192/90; PULSE 73; RESP 18; O2SAT 97
== END 2022-12-06 20:33 | disposition home or self-care (01) ==
PROVIDERS: Emergency Provider Emergency Medicine; PCP Internal Medicine; Visit Provider Emergency Medicine
DX: N20.1 Calculus of ureter (principal); J43.9 Emphysema, unspecified; K80.20 Calculus of gallbladder without cholecystitis without obstruction; M54.9 Dorsalgia, unspecified; I10 Essential (primary) hypertension; Z87.891 Personal history of nicotine dependence
CPT/HCPCS: 74176; 81001; 87086; 99283

== ENCOUNTER 2022-12-14 02:34 | Emergency (ER) | payer MEDICAID, SELFPAY ==
[2022-12-14 02:35] VITALS: BP 184/101; PULSE 89; RESP 16; TEMP 36.4; O2SAT 98; BMI 48.7
[2022-12-14 02:38] VITALS: BP 184/101; PULSE 89; RESP 16; TEMP 36.4; O2SAT 99
--- NOTE | 2022-12-14 02:56 | ED.VIS.BACK ---
HPI History of Present Illness Chief Complaint: Flank Pain Detail of Chief Complaint: Left lower back pain for a week. Informant: patient Onset/Context/Timing Onset: Days Context: Gradual Onset Timing: Continuous Quality: Dull and Aching Current Severity: Mild Maximum Severity: Moderate Worsened by: improves with Movement and Bending Relieved by: Remaining Still Associated Symptoms Associated Symptoms: Negative for Numbness, Tingling, Radiation to Right Leg, Radiation to Left Leg, Fever, Abdominal Pain, Dysuria, Unable to Ambulate, Unable to Transfer, Urinary Retention, Urinary Incontinence, Constipation or Fecal Incontinence Narrative Narrative: 56-year-old male history of COPD and hypertension. Had left lower back pain for approximately a week. Was seen in the emergency department 1 week ago on the had a CAT scan had a very questionable read of a possible kidney stone. He was treated with a muscle relaxant which sounds like Flexeril and Isabella. Said his pain really has not changed. Is worse with movement. He denies any dysuria hematuria no trouble voiding. No fall or trauma. No fever or chills. Prior similar symptoms: No Recent Illness/Hospitalization: No PFSH [facility] Medical History Asthma COPD (chronic obstructive pulmonary disease) Emphysema lung Former smoker HTN (hypertension) Hypertension FREDERICK (obstructive sleep apnea) Home Medications albuterol sulfate 90 mcg/actuation aerosol inhaler 1 puff inhalation Q6H PRN PRN Wheezing 04/05/20 [History Last Taken 04/05/20 09:00] lisinopril 10 mg-hydrochlorothiazide 12.5 mg tablet 1 ea PO DAILY 12/17/20 [History Last Taken Unknown] brompheniramine-phenylpropanol ER 12 mg-75 mg tablet,ext.release 12 hr 1 tab PO BID PRN Cold Symptoms 07/20/21 [History Last Taken Unknown] albuterol sulfate 2.5 mg/0.5 mL solution for nebulization 2.5 mg (0.5 mL) inhalation Q6H PRN shortness of breath or wheezing #30 ea 11/07/22 [Rx Last Taken Unknown] albuterol sulfate 90 mcg/actuation aerosol inhaler (ProAir HFA) 1 inh inhalation Q6H PRN shortness of breath or wheezing #8.5 grams 11/07/22 [Rx Last Taken Unknown] prednisone 20 mg tablet 40 mg PO DAILY #8 tabs 11/07/22 [Rx Last Taken Unknown] cyclobenzaprine 10 mg tablet 10 mg PO TID PRN Muscle Spasm #20 TABLETS 12/06/22 [Rx Last Taken Unknown] hydrocodone-acetaminophen 5-325mg 5mg-325mg 1 tab PO Q6H PRN PRN Pain 3 days #10 TABLETS 12/06/22 [Rx Last Taken Unknown] metaxalone 800 mg tablet 800 mg PO TID PRN muscle pain #21 tabs 12/14/22 [Rx Last Taken Unknown] Allergy/AdvReac Type Severity Reaction Status Date / Time Penicillins Allergy Unknown Verified 12/14/22 02:38 Family History Father COPD (chronic obstructive pulmonary disease) Mother Breast cancer Surgical History History of left knee replacement S/P ear surgery Social History Smoking Status: Former smoker Tobacco: How many years used: 12 how long ago did patient quit smokin second hand exposure: Yes alcohol intake: never substance use type: does not use ROS ROS ED ROS Narrative Denies recent illness. Left flank pain. Worse with movement. Review of Systems ROS Unobtainable: Denies due to encephalopathy Constitutional Constitutional ED: Denies chills or fever(s) Eyes Eyes: Denies blurry vision ENT ENT ED: Denies ear pain Cardiovascular Cardiovascular: Denies chest pain or palpitations Respiratory/Chest Respiratory/Chest: Denies dyspnea or dyspnea on exertion Gastrointestinal Gastrointestinal: Denies abdominal pain, constipation, diarrhea, melena, nausea or vomiting Genitourinary Genitourinary ED: Denies dysuria or hematuria Musculoskeletal Musculoskeletal: Reports back pain; Denies arthralgias Integumentary Denies abscess Neurologic Neurologic: Denies headache(s) Psychiatric Psychiatric: Denies anxiety Endocrine Endocrinology: Denies cold intolerance Hematologic/Lymphatic Hematologic/Lymphatic: Denies easy bleeding or easy bruising Allergic/Immunologic Allergic/Immunologic ED: Denies mouth swelling or tongue swelling EXAM Physical Exam Narrative Exam Narrative: This is a male vital signs stable afebrile. H EENT exam unremarkable. Neck nontender no lymphadenopathy. Lungs clear to auscultation bilaterally. Heart regular rhythm rate about 90 no murmur. Chest were nontender. Abdomen soft, obese nontender, nondistended normal bowel sounds no peritoneal signs. No pulsatile mass. No hernia. Back spine nontender right side nontender his left. Lumbar soft tissue musculature is obviously tender to palpation it is worse when he goes from a lying to a sitting upright position. Exam is consistent with musculoskeletal back pain. He has no bone or spine tenderness. He has normal motor strength and sensation both upper and lower extremities. Neurologic exam is normal. No cauda equina. Const Vital Signs: 12/14/22 02:35 12/14/22 02:38 12/14/22 02:39 Temperature 97.5 F L 97.5 F L Temperature Source Oral Oral Pulse Rate 89 89 Respiratory Rate 16 16 Respiratory Effort Normal Non-Labored Respiratory Pattern Normal Blood Pressure 184/101 H 184/101 H Blood Pressure Mean 128 128 Pulse Ox 98 99 Oxygen Delivery Method Room Air Room Air Positive well nourished, well developed and obese; Negative for cachectic, contractures or unkempt General Appearance ED: well developed and NAD; Negative for unkempt, cachectic, contractures or pallor Nutritional Appearance: obese; Negative for cachectic HEENT Reports moist mucous membranes; Denies dry mucous membranes Negative for trauma or tenderness Mouth ED: No dry mucous membranes Mouth: No dry mucous membranes Eyes EOMs intact bilaterally General Eye ED: Negative for pale conjunctiva or scleral icterus Neck no lymphadenopathy, supple and no JVD General: Negative for tenderness Thyroid: Negative for other Resp normal respiratory effort and clear to auscultation bilaterally Effort and Inspection: Negative for pain with movement Auscultation: Negative for rales, rhonchi or wheezes Cardio regular rate, regular rhythm, S1 normal heart sound, S2 normal heart sound and no murmurs Rate: Negative for bradycardia or tachycardic GI normal to inspection, nondistended, normoactive bowel sounds, soft to palpation, non-tender, non-distended and no masses Inspection: Negative for abdominal distention Auscultation: Negative for hyperactive bowel sounds Palpation: Negative for tender or guarding Back/Spine normal to inspection and no thoracic nor lumbar tenderness Back/Spine Narrative: Left-sided paralumbar soft tissue tenderness consistent with paralumbar muscle strain and spasm. Spines nontender. No signs of trauma. No bruising or redness. No warmth. General Back: Negative for CVA tenderness Cervical Spine: Negative for cervical spine tenderness and Negative for paracervical muscle tenderness Thoracic Spine / Upper Back: paraspinal muscle tenderness Lumbar Spine / Lower Back: Negative for ROM limited Extremity normal to inspection General Extremety ED: Negative for edema or tenderness General Extremity: Negative for edema Neuro oriented x3 and no sensory deficits noted Sensorium / Orientation: alert; Negative for confused, lethargic or stuporous Motor Exam: strength 5/5 throughout Psych mental status grossly normal Appearance: Negative for unkempt Attitude: No agitated Mood & Affect: Negative for depressed Skin no rashes or lesions noted and no wounds General Skin Exam: Negative for jaundice or pallor Lesions: No lesion noted Rashes: No rashes noted Trauma: Negative for abrasion or puncture Wounds: Negative for wounds noted MDM MDM MDM Narrative Medical decision making narrative: 56-year-old male with 1 week history of left lower back pain is totally reproducible. I reviewed his CAT scan from before. Clinically it Ultec is a kidney stone. Is totally reproducible pain. Is worse with movement and twisting. It appears to be left lumbar muscle spasm. Hot shower. Warm bath. Massage. Motrin. Will be given a dose of Skelaxin here and placed on it 3 times a day for a week. Motrin for pain. Follow-up if not improving. His appointment to see his physician later today. Discharge Plan Triage Chief Complaint: Flank Pain ED Provider: Julius Dupree Dx/Rx/DC Orders Clinical Impression: Back muscle spasm Instructions: ED Back Spasm, No Trauma Prescriptions: New metaxalone 800 mg tablet 800 mg PO TID PRN (Reason: muscle pain) Qty: 21 0RF No Action albuterol sulfate 1 PUFF inhaler 1 puff inhalation Q6H PRN PRN (Reason: Wheezing) lisinopril-hydrochlorothiazide 1 EACH tablet 1 ea PO DAILY DayQuil Allergy 12-HR 12-75 mg Tablet Extended Release 12 Hr 1 tab PO BID PRN (Reason: Cold Symptoms) albuterol sulfate [ProAir HFA] 90 mcg/actuation HFA aerosol inhaler 1 inh inhalation Q6H PRN (Reason: shortness of breath or wheezing) Qty: 8.5 0RF albuterol sulfate 2.5 mg/0.5 mL solution for nebulization 2.5 mg inhalation Q6H PRN (Reason: shortness of breath or wheezing) Qty: 30 0RF Rx Instructions: for up to 3 doses prednisone 20 mg tablet 40 mg PO DAILY Qty: 8 0RF cyclobenzaprine [cyclobenzaprine] 10 mg tablet 10 mg PO TID PRN (Reason: Muscle Spasm) Qty: 20 0RF hydrocodone-acetaminophen [hydrocodone-acetaminophen] 5-325 mg tablet 1 tab PO Q6H PRN PRN (Reason: Pain) 3 Days Qty: 10 0RF Primary Care Provider: Anika Velazco Referrals: Anika Velazco MD [Primary Care Provider] - 3-5 Days if not improving Activity Restrictions/Additional Instructions: Motrin for pain. Hot shower. Warm bath. Massage. The muscle relaxant Skelaxin 3 times a day. Follow-up with your doctor. This appears to be musculoskeletal back pain and not a kidney stone. Disposition Disposition: Home, Self Care
[2022-12-14] MEDS: Ibuprofen 600 MG Tablet PO (03:01)
[2022-12-14] MEDS: Metaxalone 800 MG Tablet PO (03:01)
[2022-12-14 03:03] VITALS: BP 158/95; PULSE 78; RESP 22; O2SAT 98
== END 2022-12-14 03:19 | disposition home or self-care (01) ==
PROVIDERS: Emergency Provider Emergency Medicine; PCP Internal Medicine; Visit Provider Emergency Medicine
DX: M62.830 Muscle spasm of back (principal); J43.9 Emphysema, unspecified; R10.9 Unspecified abdominal pain; I10 Essential (primary) hypertension; Z87.891 Personal history of nicotine dependence; E66.9 Obesity, unspecified
CPT/HCPCS: 99284

== ENCOUNTER 2023-03-01 07:33 | Emergency (ER) | payer MEDICAID, SELFPAY ==
[2023-03-01 07:34] VITALS: BP 143/78; PULSE 78; RESP 16; TEMP 36.3; O2SAT 98; BMI 51.7
--- NOTE | 2023-03-01 07:48 | ED.VIS.BACK ---
HPI History of Present Illness Chief Complaint: Back Narrative Narrative: Patient presents with right thoracic pain. He was helping his [id number] move a refrigerator a few days ago and noted pain the day after. No problems with strength no paresthesias. No radiation to legs. [facility] Medical History Asthma COPD (chronic obstructive pulmonary disease) Emphysema lung Former smoker HTN (hypertension) Hypertension FREDERICK (obstructive sleep apnea) Home Medications albuterol sulfate 90 mcg/actuation aerosol inhaler 1 puff inhalation Q6H PRN PRN Wheezing 04/05/20 [History Last Taken 04/05/20 09:00] lisinopril 10 mg-hydrochlorothiazide 12.5 mg tablet 1 ea PO DAILY 12/17/20 [History Last Taken Unknown] brompheniramine-phenylpropanol ER 12 mg-75 mg tablet,ext.release 12 hr 1 tab PO BID PRN Cold Symptoms 07/20/21 [History Last Taken Unknown] albuterol sulfate 2.5 mg/0.5 mL solution for nebulization 2.5 mg (0.5 mL) inhalation Q6H PRN shortness of breath or wheezing #30 ea 11/07/22 [Rx Last Taken Unknown] albuterol sulfate 90 mcg/actuation aerosol inhaler (ProAir HFA) 1 inh inhalation Q6H PRN shortness of breath or wheezing #8.5 grams 11/07/22 [Rx Last Taken Unknown] prednisone 20 mg tablet 40 mg PO DAILY #8 tabs 11/07/22 [Rx Last Taken Unknown] cyclobenzaprine 10 mg tablet 10 mg PO TID PRN Muscle Spasm #20 TABLETS 12/06/22 [Rx Last Taken Unknown] hydrocodone-acetaminophen 5-325mg 5mg-325mg 1 tab PO Q6H PRN PRN Pain 3 days #10 TABLETS 12/06/22 [Rx Last Taken Unknown] metaxalone 800 mg tablet 800 mg PO TID PRN muscle pain #21 tabs 12/14/22 [Rx Last Taken Unknown] naproxen 500 mg tablet (Naprosyn) 500 mg PO BID PRN pain #20 tabs 03/01/23 [Rx Last Taken Unknown] tizanidine 4 mg tablet 4 mg PO Q8H PRN muscle spasticity #14 tabs 03/01/23 [Rx Last Taken Unknown] Allergy/AdvReac Type Severity Reaction Status Date / Time Penicillins Allergy Unknown Verified 03/01/23 07:34 Family History Father COPD (chronic obstructive pulmonary disease) Mother Breast cancer Surgical History History of left knee replacement S/P ear surgery Social History Smoking Status: Former smoker Tobacco: How many years used: 12 how long ago did patient quit smokin second hand exposure: Yes alcohol intake: never substance use type: does not use ROS ROS ED ROS Narrative Past medical history: Reviewed Medications: Reviewed Social history: Noncontributory Review of systems: All systems negative except as indicated General: No fever Neck: No neck pain Cardiovascular: No chest pain Respiratory: No shortness of breath or cough Gastrointestinal: No abdominal pain, nausea vomiting or diarrhea Musculoskeletal: As in HPI Skin: No rash Neurological: No memory loss, confusion or any focal weakness EXAM Physical Exam Narrative Exam Narrative: Physical exam General: Well nourished, Well developed, No Acute Distress Neck: No C-spine tenderness Cardiovascular: Regular rate, Regular rhythm Respiratory: No distress, CTA bilaterally Abdomen: Soft, Nontender, Nondistended Back: Patient has thoracic trapezius pain mostly he has some trigger points in that region he has no spinal tenderness. Normal strength and sensation of the shoulder. Extremities: Nontender, No edema Skin: Normal color, No rash Neurological: Normal strength and sensation Const Vital Signs: 03/01/23 07:34 Temperature 97.4 F L Temperature Source Temporal Pulse Rate 78 Respiratory Rate 16 Blood Pressure 143/78 H Blood Pressure Mean 99 Pulse Ox 98 Oxygen Delivery Method Room Air MDM MDM MDM Narrative Medical decision making narrative: Patient has thoracic pain that is likely secondary to muscle strain. There is no bony tenderness in the spine neurovascularly intact I thought about an x-ray however I do not believe the patient needs it especially the most of his pain is in his muscles. He will be treated with muscle relaxants and anti-inflammatories and discharged in stable condition. I taught him some stretching exercises. Discharge Plan Triage Chief Complaint: Back ED Provider: Alf Ramon Dx/Rx/DC Orders Clinical Impression: Acute thoracic myofascial strain, Back pain Instructions: ED Thoracic Spine Strain Prescriptions: New tizanidine 4 mg tablet 4 mg PO Q8H PRN (Reason: muscle spasticity) Qty: 14 0RF naproxen [Naprosyn] 500 mg tablet 500 mg PO BID PRN (Reason: pain) Qty: 20 0RF No Action albuterol sulfate 1 PUFF inhaler 1 puff inhalation Q6H PRN PRN (Reason: Wheezing) lisinopril-hydrochlorothiazide 1 EACH tablet 1 ea PO DAILY DayQuil Allergy 12-HR 12-75 mg Tablet Extended Release 12 Hr 1 tab PO BID PRN (Reason: Cold Symptoms) albuterol sulfate [ProAir HFA] 90 mcg/actuation HFA aerosol inhaler 1 inh inhalation Q6H PRN (Reason: shortness of breath or wheezing) Qty: 8.5 0RF albuterol sulfate 2.5 mg/0.5 mL solution for nebulization 2.5 mg inhalation Q6H PRN (Reason: shortness of breath or wheezing) Qty: 30 0RF Rx Instructions: for up to 3 doses prednisone 20 mg tablet 40 mg PO DAILY Qty: 8 0RF cyclobenzaprine [cyclobenzaprine] 10 mg tablet 10 mg PO TID PRN (Reason: Muscle Spasm) Qty: 20 0RF hydrocodone-acetaminophen [hydrocodone-acetaminophen] 5-325 mg tablet 1 tab PO Q6H PRN PRN (Reason: Pain) 3 Days Qty: 10 0RF metaxalone 800 mg tablet 800 mg PO TID PRN (Reason: muscle pain) Qty: 21 0RF Stand Alone Forms: ED Work / School Excuse Primary Care Provider: Anika Velazco Referrals: Anika Velazco MD [Primary Care Provider] - 3-5 Days Disposition Disposition: Home, Self Care
== END 2023-03-01 07:59 | disposition home or self-care (01) ==
LOC: ED 07:58
PROVIDERS: Emergency Provider Emergency Medicine; PCP Internal Medicine; Visit Provider Emergency Medicine
DX: S29.019A Strain of muscle and tendon of unspecified wall of thorax, initial encounter (principal); J43.9 Emphysema, unspecified; Z87.891 Personal history of nicotine dependence; I10 Essential (primary) hypertension; X50.0XXA Overexertion from strenuous movement or load, initial encounter
CPT/HCPCS: 99282

== ENCOUNTER 2023-04-30 20:38 | Emergency (ER) | payer MEDICAID, SELFPAY ==
[2023-04-30 20:39] VITALS: BP 135/74; PULSE 79; RESP 16; TEMP 36.7; O2SAT 95; BMI 49.6
--- NOTE | 2023-04-30 20:51 | ED.VIS.CHEST ---
HPI History of Present Illness Chief Complaint: Chest Pain Informant: patient Onset/Context/Timing Onset: Yesterday Activity at onset: gradual Timing: Waxes and wanes Quality: Positive for Heaviness and Sharp Location: Substernal Current Severity: Mild Maximum Severity: Moderate Worsened By: Exertion and Coughing Narrative Narrative: Patient presents with chest pain along with cough and shortness of breath. He states when he was at work yesterday he got heaviness and sharp pain in his chest that got better after he got home and rested. He has had cough and shortness of breath with some wheezing as well. He does have a history of COPD. Today at work symptoms returned so he presented to the emergency room for evaluation. He has not noted a fever. He is not coughing up any phlegm. [facility] Medical History Asthma COPD (chronic obstructive pulmonary disease) Emphysema lung Former smoker HTN (hypertension) Hypertension FREDERICK (obstructive sleep apnea) Home Medications albuterol sulfate 90 mcg/actuation aerosol inhaler 1 puff inhalation Q6H PRN PRN Wheezing 04/05/20 [History Last Taken 04/05/20 09:00] lisinopril 10 mg-hydrochlorothiazide 12.5 mg tablet 1 ea PO DAILY 12/17/20 [History Last Taken Unknown] brompheniramine-phenylpropanol ER 12 mg-75 mg tablet,ext.release 12 hr 1 tab PO BID PRN Cold Symptoms 07/20/21 [History Last Taken Unknown] albuterol sulfate 2.5 mg/0.5 mL solution for nebulization 2.5 mg (0.5 mL) inhalation Q6H PRN shortness of breath or wheezing #30 ea 11/07/22 [Rx Last Taken Unknown] albuterol sulfate 90 mcg/actuation aerosol inhaler (ProAir HFA) 1 inh inhalation Q6H PRN shortness of breath or wheezing #8.5 grams 11/07/22 [Rx Last Taken Unknown] doxycycline monohydrate 100 mg capsule 100 mg PO BID #20 CAPSULES 04/30/23 [Rx Last Taken Unknown] prednisone 20 mg tablet 40 mg PO DAILY #8 tabs 04/30/23 [Rx Last Taken Unknown] Allergy/AdvReac Type Severity Reaction Status Date / Time Penicillins Allergy Unknown Verified 04/30/23 20:41 Family History Father COPD (chronic obstructive pulmonary disease) Mother Breast cancer Surgical History History of left knee replacement S/P ear surgery Social History Smoking Status: Former smoker Tobacco: How many years used: 12 how long ago did patient quit smokin second hand exposure: Yes alcohol intake: never substance use type: does not use ROS ROS ED Constitutional Constitutional ED: Denies chills or fever(s) Eyes Eyes: Denies change in vision or discharge from eye(s) ENT ENT ED: Denies discharge from eye(s), rhinorrhea or sore throat Cardiovascular Cardiovascular: Reports chest pain; Denies palpitations Respiratory/Chest Respiratory/Chest: Reports cough and dyspnea Gastrointestinal Gastrointestinal: Denies abdominal pain, nausea or vomiting Genitourinary Genitourinary ED: Denies difficulty urinating or dysuria Musculoskeletal Musculoskeletal: Denies back pain or extremity pain Integumentary Denies Abrasions or rash Neurologic Neurologic: Denies headache(s) or weakness Psychiatric Psychiatric: Denies anxiety or depression Allergic/Immunologic Allergic/Immunologic ED: Denies lip swelling or urticaria EXAM Physical Exam Const Vital Signs: 04/30/23 20:39 04/30/23 20:50 04/30/23 20:53 Temperature 98.0 F Temperature Source Temporal Pulse Rate 79 Respiratory Rate 16 Respiratory Pattern Normal Blood Pressure 135/74 H Blood Pressure Mean 94 Pulse Ox 95 Oxygen Delivery Method Room Air Room Air Positive well nourished and well developed General Appearance ED: well developed HEENT Reports normocephalic and head/scalp atraumatic Eyes PERRL and EOMs intact bilaterally Neck supple Chest Wall inspection of chest normal and palpation of chest normal Resp normal respiratory effort Resp Narrative: Diminished lung sounds bilateral bases. No wheezing noted at this time. Cardio regular rate and regular rhythm GI normal to inspection, nondistended, normoactive bowel sounds Palpation: soft Extremity Extremity Narrative: 2-3+ bilateral lower extremity VINNY, symmetric. Patient states this is baseline. 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 EKG obtained to evaluate for cardiac arrhythmia/ischemia. Chest x-ray obtained to evaluate for acute lung pathology, cardiac size, or mediastinal abnormality. Labwork obtained to evaluate for leukocytosis, anemia, and electrolyte derangement. Patient given p.o. prednisone for suspected COPD flare. As he is not wheezing at this time aerosols were not given. Lab Data Attestation: I reviewed the patient's lab results. Labs: Laboratory Results - last 24 hr 04/30/23 04/30/23 20:15 20:15 WBC 8.9 RBC 4.86 Hgb 14.9 Hct 44.3 MCV 91.2 MCH 30.7 MCHC 33.6 RDW Std Deviation 43.8 RDW Coeff of Garfield 13.1 Plt Count 209 MPV 11.7 Immature Gran % (Auto) 0.200 Neut % (Auto) 49.5 Lymph % (Auto) 35.1 Bradford % (Auto) 8.9 Eos % (Auto) 5.7 H Baso % (Auto) 0.6 Absolute Neuts (auto) 4.4 Absolute Lymphs (auto) 3.11 Nucleated RBC % 0 Sodium 141 Potassium 4.0 Chloride 107 Carbon Dioxide 32.0 Anion Gap 2 L BUN 17 Creatinine 0.92 Estim Creat Clear Calc 87.52 Est GFR (MDRD) Af Amer 108 Est GFR (MDRD) Non-Af 89 BUN/Creatinine Ratio 18.4 Glucose 97 Calcium 9.1 Troponin I High Sens 20 Radiography Chest X-Ray - ED: 1 View, Read by ED Physician, Chronic Changes and No Infiltrates Diagnostic Testing: Clinical Impression(s) from Imaging Studies Chest X-Ray 04/30/23 20:55 IMPRESSION: No radiographic evidence of acute cardiopulmonary disease. Electronically Signed: Luis Alberto Chua MD at 21:51 EDT , EKG Initial EKG: Attestation: I personally reviewed and interpreted this EKG as follows: Interpretation: Sinus Rhythm (Sinus at 74 with no acute ischemia.) Differential Diagnosis Chest pain/SOB: pulmonary embolism Reason(s) PE less likely: Positive for not tachycardic and not hypoxic, ACS ACS: Positive for no evidence of ACS based on cardiac biomarkers and EKG without ischemia and pneumonia Reason(s) pneumonia less likely: Positive for no infiltrate on CXR, no elevation in WBC count and no noted fever Treatment and Re-Evaluation :: CBC and chemistry studies are unremarkable. Troponin is normal at 20. Two-view chest x-ray per my interpretation reveals no evidence of focal infiltrate. Chronic changes noted. Radiology interpretation is reviewed and agrees. On repeat evaluation patient resting comfortably. He states he will gets pain when he coughs. I do believe his symptoms are more consistent with a COPD exacerbation. He has inhalers at home that he can use. He will be treated with doxycycline as well as prednisone. Return instructions given. He will be given a work note for tonight. Discharge Plan Triage Chief Complaint: Chest Pain ED Provider: Lani España Dx/Rx/DC Orders Clinical Impression: COPD exacerbation Instructions: ED COPD Flare Prescriptions: New prednisone 20 mg tablet 40 mg PO DAILY Qty: 8 0RF doxycycline monohydrate 100 mg capsule 100 mg PO BID Qty: 20 0RF No Action albuterol sulfate 1 PUFF inhaler 1 puff inhalation Q6H PRN PRN (Reason: Wheezing) lisinopril-hydrochlorothiazide 1 EACH tablet 1 ea PO DAILY DayQuil Allergy 12-HR 12-75 mg Tablet Extended Release 12 Hr 1 tab PO BID PRN (Reason: Cold Symptoms) albuterol sulfate [ProAir HFA] 90 mcg/actuation HFA aerosol inhaler 1 inh inhalation Q6H PRN (Reason: shortness of breath or wheezing) Qty: 8.5 0RF albuterol sulfate 2.5 mg/0.5 mL solution for nebulization 2.5 mg inhalation Q6H PRN (Reason: shortness of breath or wheezing) Qty: 30 0RF Rx Instructions: for up to 3 doses Stand Alone Forms: Work / School Excuse Primary Care Provider: Anika Velazco Referrals: Anika Velazco MD [Primary Care Provider] - 1 Week Disposition Disposition: Home, Self Care
--- NOTE | 2023-04-30 20:55 | RAD_ITS ---
EXAM: XR CHEST, 1 VIEW CLINICAL INDICATION: chest pain TECHNIQUE: Frontal view of the chest. COMPARISON: November 07, 2022 FINDINGS: LUNGS AND PLEURAL SPACES: Unremarkable. No consolidation or edema. No pneumothorax. No effusion. HEART: Unremarkable. Cardiac silhouette not enlarged. MEDIASTINUM: Central airways and mediastinal contour are unremarkable. BONES/JOINTS: Degenerative changes of the spine. SOFT TISSUES: Unremarkable. RAD/Chest 1 View (Portable) IMPRESSION: No radiographic evidence of acute cardiopulmonary disease. Electronically Signed: Luis Alberto Chua MD at 21:51 EDT ,
[2023-04-30] MEDS: predniSONE 20 MG Tablet 60 MG PO (21:00)
[2023-04-30] MEDS: Aspirin 81 MG TAB.CHEW 324 MG PO (21:00)
[2023-04-30 21:01] LABS: Absolute Lymphocyte Count 3.11 X10^3/uL (0.83-4.51); Absolute Neutrophil Count 4.4 X10^3/uL (2.0-7.7); Basophil# 0.05 X10^3/uL; Basophil% 0.6 % (0-1); Eosinophil# 0.51 X10^3/uL; Eosinophils% 5.7 % (0-5); Hematocrit 44.3 % (40-54); Hemoglobin 14.9 g/dL (13.0-16.5); Lymphocyte # 3.11 X10^3/ul (0.83-4.51); Lymphocyte % 35.1 % (19-41); Mean Corp Hgb Conc 33.6 g/dL (32-36); Mean Corpuscular Hgb 30.7 pg (27.0-32.0); Mean Corpuscular Volume 91.2 fL (80-94); Mean Platelet Vol. 11.7 fl (6.2-12.0); Monocyte# 0.79 X10^3/uL; Monocyte% 8.9 % (0-10); NRBC Flagged by Analyzer 0 % (0-5); Neutrophil # 4.39 X10^3/uL (2.7-7.7); Neutrophil % 49.5 % (47-70); Platelet Count 209 K/mm3 (150-450); RBC Distribution Width CV 13.1 % (11.6-14.6); RBC Distribution Width SD 43.8 fl (35.1-43.9); Red Blood Count 4.86 M/mm3 (4.6-6.2); White Blood Count 8.9 K/mm3 (4.4-11.0)
[2023-04-30 21:21] LABS: Anion Gap 2 (5-15); BUN 17 mg/dL (7-18); BUN/Creat Ratio 18.4 RATIO (10-20); Calcium,Total 9.1 mg/dL (8.5-10.1); Chloride 107 mmol/L (98-107); Creatinine, Serum 0.92 mg/dL (0.70-1.30); EST Glomerular Filtration Rate 89 mL/min (>60); Est Glom Filt Rate - Afr Amer 108 mL/min (>60); Estimated Creatinine Clearance 87.52 ml/min; Glucose 97 mg/dL (74-106); Sodium Level 141 mmol/L (136-145); Troponin-I HS 20 pg/mL (3.0-78.0)
[2023-04-30 21:39] VITALS: BP 125/75; PULSE 75; RESP 18; O2SAT 95
[2023-04-30 22:39] VITALS: BP 145/83; PULSE 83; RESP 18; O2SAT 95
[2023-04-30] MEDS: Doxycycline 100 MG CAPSULE PO (22:56)
[2023-04-30 23:01] VITALS: BP 140/88; PULSE 79; RESP 18; O2SAT 97
== END 2023-04-30 23:02 | disposition home or self-care (01) ==
PROVIDERS: Emergency Provider Emergency Medicine; PCP Internal Medicine; Visit Provider Emergency Medicine
DX: J43.9 Emphysema, unspecified (principal); I10 Essential (primary) hypertension; Z87.891 Personal history of nicotine dependence; Z79.52 Long term (current) use of systemic steroids
CPT/HCPCS: 71045; 80048; 84484; 85025; 93005; 99285; A4216

== ENCOUNTER 2023-07-07 17:32 | Emergency (ER) | payer MEDICAID, SELFPAY ==
[2023-07-07 17:32] VITALS: BP 121/94; PULSE 81; RESP 20; TEMP 36.1; O2SAT 95; BMI 48.7
[2023-07-07 17:59] LABS: Absolute Lymphocyte Count 2.51 X10^3/uL (0.83-4.51); Absolute Neutrophil Count 4.6 X10^3/uL (2.0-7.7); Basophil# 0.04 X10^3/uL; Basophil% 0.5 % (0-1); Eosinophil# 0.32 X10^3/uL; Eosinophils% 3.9 % (0-5); Hematocrit 43.8 % (40-54); Hemoglobin 14.5 g/dL (13.0-16.5); Lymphocyte # 2.51 X10^3/ul (0.83-4.51); Lymphocyte % 30.4 % (19-41); Mean Corp Hgb Conc 33.1 g/dL (32-36); Mean Corpuscular Hgb 30.5 pg (27.0-32.0); Mean Platelet Vol. 11.3 fl (6.2-12.0); Monocyte# 0.75 X10^3/uL; Monocyte% 9.1 % (0-10); NRBC Flagged by Analyzer 0 % (0-5); Neutrophil # 4.61 X10^3/uL (2.7-7.7); Neutrophil % 55.9 % (47-70); Platelet Count 233 K/mm3 (150-450); RBC Distribution Width CV 12.9 % (11.6-14.6); RBC Distribution Width SD 43.9 fl (35.1-43.9); Red Blood Count 4.76 M/mm3 (4.6-6.2); White Blood Count 8.3 K/mm3 (4.4-11.0)
--- NOTE | 2023-07-07 18:05 | RAD_ITS ---
INDICATION: cough EXAMINATION/TECHNIQUE: X-RAY - XR Chest 2 Views COMPARISON: 04/30/2023. FINDINGS: LINES/DEVICES: None. LUNGS: No consolidation, edema or effusion. No pneumothorax. MEDIASTINUM AND CARDIOVASCULAR STRUCTURES: Cardiac silhouette not enlarged. Central airways and mediastinal contour are unremarkable. BONES AND SOFT TISSUES: Unremarkable. RAD/Chest PA and Lateral IMPRESSION: No radiographic evidence of acute cardiopulmonary disease. Electronically Signed: Fernanda Trevino MD at 18:46 EDT Reading Location ID and State: [id number] / Tel , Service support ,
[2023-07-07] MEDS: MethylPREDNISolone 125 MG/2 ML Vial IV (18:15)
--- NOTE | 2023-07-07 18:16 | EX.ED.DYSGE1 ---
HPI <BETTE Mejía - Last Filed: 07/07/23 21:28> History of Present Illness Chief Complaint: Shortness of Breath Narrative Narrative: Patient is a 57-year-old male with history of COPD, obesity, CHF who presents to the emergency department for ongoing chest pain, shortness of breath. Patient states that getting winded, having some chest pressure is not abnormal for him. Today he was at work, he was lifting up a chicken, while walking he felt more short of breath, or chest pain it did not go away and he is here for evaluation. 2 weeks ago, he was placed on new inhalers by his PCP however they are not helping. He is currently not on any prednisone or steroids. PFS <BETTE Mejía - Last Filed: 07/07/23 21:28> [facility] Medical History Asthma COPD (chronic obstructive pulmonary disease) Emphysema lung Former smoker HTN (hypertension) Hypertension FREDERICK (obstructive sleep apnea) Home Medications albuterol sulfate 90 mcg/actuation aerosol inhaler 1 puff inhalation Q6H PRN PRN Wheezing 04/05/20 [History Last Taken 04/05/20 09:00] lisinopril 10 mg-hydrochlorothiazide 12.5 mg tablet 1 tab PO DAILY 12/17/20 [History Last Taken Unknown] albuterol sulfate 2.5 mg/0.5 mL solution for nebulization 2.5 mg (0.5 mL) inhalation Q6H PRN shortness of breath or wheezing #30 ea 11/07/22 [Rx Last Taken Unknown] albuterol sulfate 90 mcg/actuation aerosol inhaler (ProAir HFA) 1 inh inhalation Q6H PRN shortness of breath or wheezing #8.5 grams 11/07/22 [Rx Last Taken Unknown] prednisone 50 mg tablet 50 mg PO DAILY #5 tabs 07/07/23 [Rx Last Taken Unknown] tiotropium bromide 18 mcg capsule with inhalation device (Spiriva with HandiHaler) 1 cap inhalation DAILY 07/07/23 [History Last Taken Unknown] Allergy/AdvReac Type Severity Reaction Status Date / Time Penicillins Allergy Unknown Verified 07/07/23 17:32 Family History Father COPD (chronic obstructive pulmonary disease) Mother Breast cancer Surgical History History of left knee replacement S/P ear surgery Social History Smoking Status: Former smoker Tobacco: How many years used: 12 how long ago did patient quit smokin second hand exposure: Yes alcohol intake: never substance use type: does not use ROS <BETTE Mejía - Last Filed: 07/07/23 21:28> ROS ED ROS Narrative Constitutional: Negative for fever, chills, weight loss, weakness Eyes: Negative for vision loss, vision change, double vision ENT: Negative for any sore throat, ear pain, congestion Cardiovascular: Negative for any chest pain, tightness, palpitations Respiratory: Negative for any sputum production, hemoptysis. Positive for cough dyspnea, dyspnea on exertion, orthopnea Gastrointestinal: Negative for any abdominal pain, nausea, vomiting, diarrhea, constipation, blood in stool, blood in vomit : Negative for any urinary frequency, dysuria, retention, blood in urine Muscle skeletal: Negative for any muscle joint pain, stiffness, myalgias, arthralgias, neck pain, back pain Neurological: Negative for any headache, syncope, numbness or tingling, dizziness Skin: Negative for any rashes, lumps, itching, abrasions, lacerations Psychiatric: Negative for any depression, anxiety, stress, suicidal ideation, homicidal ideation Hematologic: Negative for any easy bruising, excessive bruising, easy bleeding Allergies: Negative for any eczema, hives, rash EXAM <BETTE Mejía - Last Filed: 07/07/23 21:28> Physical Exam Narrative Exam Narrative: Vital signs reviewed. HEET: Head normocephalic atraumatic, TMs clear bilaterally. Posterior pharynx is clear, moist mucous membranes. Nares clear bilaterally. Neck: Supple with no lymphadenopathy or tenderness. No signs of meningismus, negative jolt sign. Cardiac: Regular rate and rhythm no murmurs gallops or rubs, equal peripheral pulses bilaterally. Respiratory: Expiratory wheezes bilateral lower bases. No chest tenderness. Abdomen: Soft, nontender, nondistended. No abdominal bruit or pulsatile masses. No hepatosplenomegaly Extremities: Patient does have large edematous legs however they are not pitting edema., no signs of gross trauma or deformity. Active full range of motion of all extremities. Neuro: Cranial nerves II through XII intact, no focal neurological deficits. Skin: Clean dry and intact with no rash, purpura, petechiae, vesicles or pustules. Backs/flank: No CVA tenderness, no midline spinal tenderness, no deformity. Psych: Normal mood and affect. No SI, HI or acute psychosis. Const Vital Signs: 07/07/23 17:32 07/07/23 18:24 07/07/23 18:24 Temperature 96.9 F L 97.6 F L Temperature Source Temporal Temporal Pulse Rate 81 85 Respiratory Rate 20 H 20 H Respiratory Effort Short of Breath Respiratory Depth Shallow Respiratory Pattern Blood Pressure 121/94 H 121/94 H Blood Pressure Mean 103 103 Pulse Ox 95 92 Oxygen Delivery Method Room Air Room Air Room Air 07/07/23 18:19 07/07/23 21:09 Temperature Temperature Source Pulse Rate 89 84 Respiratory Rate 16 17 Respiratory Effort Respiratory Depth Respiratory Pattern Normal Blood Pressure Blood Pressure Mean Pulse Ox 93 Oxygen Delivery Method Room Air <Dr. Jared Almaraz MD - Last Filed: 07/09/23 14:44> Physical Exam Const Vital Signs: 07/07/23 17:32 07/07/23 18:24 07/07/23 18:24 Temperature 96.9 F L 97.6 F L Temperature Source Temporal Temporal Pulse Rate 81 85 Respiratory Rate 20 H 20 H Respiratory Effort Short of Breath Respiratory Depth Shallow Respiratory Pattern Blood Pressure 121/94 H 121/94 H Blood Pressure Mean 103 103 Pulse Ox 95 92 Oxygen Delivery Method Room Air Room Air Room Air 07/07/23 18:19 07/07/23 21:09 Temperature Temperature Source Pulse Rate 89 84 Respiratory Rate 16 17 Respiratory Effort Respiratory Depth Respiratory Pattern Normal Blood Pressure Blood Pressure Mean Pulse Ox 93 Oxygen Delivery Method Room Air MDM <BETTE Mejía - Last Filed: 07/07/23 21:28> MDM Lab Data Labs: Laboratory Results - last 24 hr 07/07/23 07/07/23 07/07/23 17:50 18:30 20:05 WBC 8.3 RBC 4.76 Hgb 14.5 Hct 43.8 MCV 92.0 MCH 30.5 MCHC 33.1 RDW Std Deviation 43.9 RDW Coeff of Garfield 12.9 Plt Count 233 MPV 11.3 Immature Gran % (Auto) 0.200 Neut % (Auto) 55.9 Lymph % (Auto) 30.4 Toole % (Auto) 9.1 Eos % (Auto) 3.9 Baso % (Auto) 0.5 Absolute Neuts (auto) 4.6 Absolute Lymphs (auto) 2.51 Nucleated RBC % 0 D-Dimer Quant (PE/DVT) 0.30 Sodium 138 Potassium 3.4 L Chloride 105 Carbon Dioxide 29.0 Anion Gap 4 L BUN 21 H Creatinine 1.14 Estim Creat Clear Calc 70.63 Est GFR (MDRD) Af Amer 85 Est GFR (MDRD) Non-Af 70 BUN/Creatinine Ratio 18.4 Glucose 96 Calcium 8.9 Troponin I High Sens 13 13 B-Natriuretic Peptide < 2.0 Radiography Diagnostic Testing: Clinical Impression(s) from Imaging Studies Chest X-Ray 07/07/23 18:05 IMPRESSION: No radiographic evidence of acute cardiopulmonary disease. Electronically Signed: Fernanda Trevino MD at 18:46 EDT Reading Location ID and State: [id number] / Tel , Service support , Treatment and Re-Evaluation :: All radiologic examinations were read, reviewed by the emergency department attending. From these reads, a plan of care will be put in place. Appears generally well, patient appears nontoxic, vital signs are stable. Patient presents to the emergency department for complaints of chest pressure, difficulty breathing while at work. Patient did receive a full cardiac work-up. Patient's laboratory values show normal CBC, chemistries were unremarkable, patient had 2 troponins that were negative. EKG was unremarkable, no evidence of any ACS or MN. Patient did receive a chest x-ray concerning for any pneumonia, this showed no radiographic evidence of acute cardiopulmonary disease. Patient's COVID-19, influenza was negative. At this time, is no evidence suspect any pneumonia, MN, ACS. Patient is likely suffering from COPD exacerbation as well as working in the heat. He placed on a 5-day course of prednisone. He is instructed to return for any worsening symptoms. All questions answered, patient stable for discharge <Dr. Jared Almaraz MD - Last Filed: 07/09/23 14:44> [facility] Narrative Medical decision making narrative: I have personally performed a face to face assessment of the patient and have reviewed the JAILYN Note. I performed a substantive portion of the visit including all aspects of the following. My mcguire findings include: History is remarkable for right-sided pleuritic pain. He had this for the past couple days. His pain is worse with activity, exertion and palpation. He also hurts to breathe. He denies history of VTE. He does complain of intermittent leg pain. He is presently on lisinopril and hydrochlorothiazide for his blood pressure. He denies rhinorrhea, congestion, postnasal drainage sore throat. He denies cough. He denies history of coronary disease. He does have a history of obstructive sleep apnea, hypertension, COPD. Exam is remarkable for morbid obesity. He appears in no distress. He is not hypoxic. He is not tachycardic or tachypneic. HEENT exam is unremarkable. Lungs are clear to auscultation with symmetric breath sounds. He has reproducible chest pain on the right. There is no egophony or increased vocal fremitus. Heart is regular in rate is normal. There is no murmur, gallop or rub. Abdomen is soft nontender. There is no paraspinal megaly. There is no clinical Mares sign. There is no abdominal bruit. Unable to assess for pulsatile mass because of body habitus. Lower extremity exam is remarkable bilateral edema. There is no asymmetry, discoloration, leg vein distention or palpable cords. There is no tension on the distribution deep venous system. Medical Decision Making differential diagnosis would include pleurisy, pulmonary embolus, pneumonia, atypical presentation for cardiac since he does have an exertional component. His work-up included EKG, chest x-ray and appropriate blood work including D-dimer. D-dimer was obtained since he is not PERC negative. Other additions or changes: [None] History & Record Review Additional record(s) reviewed:: Prior ED visit and Prior labs Lab Data Labs: Laboratory Results - last 24 hr 07/07/23 07/07/23 07/07/23 17:50 18:30 20:05 WBC 8.3 RBC 4.76 Hgb 14.5 Hct 43.8 MCV 92.0 MCH 30.5 MCHC 33.1 RDW Std Deviation 43.9 RDW Coeff of Garfield 12.9 Plt Count 233 MPV 11.3 Immature Gran % (Auto) 0.200 Neut % (Auto) 55.9 Lymph % (Auto) 30.4 Toole % (Auto) 9.1 Eos % (Auto) 3.9 Baso % (Auto) 0.5 Absolute Neuts (auto) 4.6 Absolute Lymphs (auto) 2.51 Nucleated RBC % 0 D-Dimer Quant (PE/DVT) 0.30 Sodium 138 Potassium 3.4 L Chloride 105 Carbon Dioxide 29.0 Anion Gap 4 L BUN 21 H Creatinine 1.14 Estim Creat Clear Calc 70.63 Est GFR (MDRD) Af Amer 85 Est GFR (MDRD) Non-Af 70 BUN/Creatinine Ratio 18.4 Glucose 96 Calcium 8.9 Troponin I High Sens 13 13 B-Natriuretic Peptide < 2.0 Radiography Diagnostic Testing: Clinical Impression(s) from Imaging Studies Chest X-Ray 07/07/23 18:05 IMPRESSION: No radiographic evidence of acute cardiopulmonary disease. Electronically Signed: Fernanda Trevino MD at 18:46 EDT Reading Location ID and State: [id number] / Tel , Service support , Discharge Plan Triage Chief Complaint: Shortness of Breath ED Midlevel Provider: Alf Reed ED Provider: Jared Almaraz Dx/Rx/DC Orders Clinical Impression: COPD (chronic obstructive pulmonary disease), FREDERICK (obstructive sleep apnea), Acute bronchospasm Instructions: Asthma and COPD, Asthma COPD Trigger Control Prescriptions: New prednisone 50 mg tablet 50 mg PO DAILY Qty: 5 0RF No Action albuterol sulfate 1 PUFF inhaler 1 puff inhalation Q6H PRN PRN (Reason: Wheezing) lisinopril-hydrochlorothiazide 1 EACH tablet 1 tab PO DAILY albuterol sulfate [ProAir HFA] 90 mcg/actuation HFA aerosol inhaler 1 inh inhalation Q6H PRN (Reason: shortness of breath or wheezing) Qty: 8.5 0RF albuterol sulfate 2.5 mg/0.5 mL solution for nebulization 2.5 mg inhalation Q6H PRN (Reason: shortness of breath or wheezing) Qty: 30 0RF Rx Instructions: for up to 3 doses tiotropium bromide [Spiriva with HandiHaler] 18 mcg capsule, w/inhalation device 1 cap inhalation DAILY Rx Instructions: puncture 1 cap using device; one dose = 2 inhalations Primary Care Provider: Anika Velazco Referrals: Anika Velazco MD [Primary Care Provider] - Activity Restrictions/Additional Instructions: Please take the prednisone till finished. Ensure that you get enough air while at work. Disposition Disposition: Home, Self Care Discharge Date/Time: 07/07/23 21:40
[2023-07-07 18:18] LABS: Anion Gap 4 (5-15); BUN 21 mg/dL (7-18); BUN/Creat Ratio 18.4 RATIO (10-20); Calcium,Total 8.9 mg/dL (8.5-10.1); Chloride 105 mmol/L (98-107); Creatinine, Serum 1.14 mg/dL (0.70-1.30); EST Glomerular Filtration Rate 70 mL/min (>60); Est Glom Filt Rate - Afr Amer 85 mL/min (>60); Estimated Creatinine Clearance 70.63 ml/min; Glucose 96 mg/dL (74-106); Potassium 3.4 mmol/L (3.5-5.1); Sodium Level 138 mmol/L (136-145); Troponin-I HS (w/2H Reflex) 13 pg/mL (3.0-78.0)
[2023-07-07 18:19] VITALS: PULSE 89; RESP 16
[2023-07-07] MEDS: Albuterol 2.5 MG/3 ML VIAL.NEB. INHALATION (18:19)
[2023-07-07] MEDS: Ipratropium/Albuterol Sulfate 3 ML AMPUL.NEB INHALATION (18:19)
[2023-07-07 18:24] VITALS: BP 121/94; PULSE 85; RESP 20; TEMP 36.4; O2SAT 92
--- NOTE | 2023-07-07 18:36 | CPS ---
x1 Albuterol given to pt. in ER as well
[2023-07-07 18:59] LABS: BNP,B-Type NATRIURETIC PEPTIDE < 2.0 pg/mL (0-100)
[2023-07-07 19:56] LABS: Reflex Troponin-HS? (from REC) Y
[2023-07-07 20:36] LABS: Troponin-I HS 13 pg/mL (3.0-78.0)
[2023-07-07 21:09] VITALS: PULSE 84; RESP 17; O2SAT 93
[2023-07-07 21:38] VITALS: PULSE 89; RESP 19; O2SAT 93
== END 2023-07-07 21:40 | disposition home or self-care (01) ==
PROVIDERS: Nurse Practitioner; Emergency Provider Emergency Medicine; PCP Internal Medicine; Visit Provider Emergency Medicine
DX: J43.9 Emphysema, unspecified (principal); I11.0 Hypertensive heart disease with heart failure; I50.9 Heart failure, unspecified; E66.01 Morbid (severe) obesity due to excess calories; M79.606 Pain in leg, unspecified; J98.01 Acute bronchospasm; Z87.891 Personal history of nicotine dependence; Z79.899 Other long term (current) drug therapy
CPT/HCPCS: 71046; 80048; 83880; 84484; 85025; 85379; 87428; 93005; 94640; 96374; 99285; A4216

== ENCOUNTER 2023-08-14 21:12 | Emergency (ER) | payer MEDICAID, SELFPAY ==
[2023-08-14 21:13] VITALS: BP 147/93; PULSE 109; RESP 18; TEMP 36.6; O2SAT 94; BMI 50.2
--- NOTE | 2023-08-14 21:31 | RAD_ITS ---
STUDY: X-RAY - RIGHT KNEE REASON FOR EXAM: Male, 57 years old. pain TECHNIQUE: 4 view(s) of the knee. COMPARISON: None. FINDINGS: Normal visualized distal femur. Normal visualized proximal tibia and fibula. Normal proximal tibiofibular articulation. There is no demonstrated fracture. There is mild degenerative arthrosis and narrowing of the medial femorotibial compartment. Normal lateral femorotibial compartment. Normal patellofemoral articulation. There is no demonstrated joint effusion. The soft tissue structures are unremarkable. RAD/Knee 4 or More Views IMPRESSION: No definite acute or significant abnormality seen. No effusion is seen. Electronically Signed: Bruce Espinosa MD at 22:41 EDT ,
--- NOTE | 2023-08-14 23:12 | EDS_ITS ---
HPI History of Present Illness Chief Complaint: Lower Extremity Injury [facility] Medical History Asthma COPD (chronic obstructive pulmonary disease) Emphysema lung Former smoker HTN (hypertension) Hypertension FREDERICK (obstructive sleep apnea) Home Medications albuterol sulfate 90 mcg/actuation aerosol inhaler 1 puff inhalation Q6H PRN PRN Wheezing 04/05/20 [History Last Taken 04/05/20 09:00] lisinopril 10 mg-hydrochlorothiazide 12.5 mg tablet 1 tab PO DAILY 12/17/20 [History Last Taken Unknown] albuterol sulfate 2.5 mg/0.5 mL solution for nebulization 2.5 mg (0.5 mL) inhala tion Q6H PRN shortness of breath or wheezing #30 ea 11/07/22 [Rx Last Taken Unknown] albuterol sulfate 90 mcg/actuation aerosol inhaler (ProAir HFA) 1 inh inhalation Q6H PRN shortness of breath or wheezing #8.5 grams 11/07/22 [Rx Last Taken Unknown] prednisone 50 mg tablet 50 mg PO DAILY #5 tabs 07/07/23 [Rx Last Taken Unknown] tiotropium bromide 18 mcg capsule with inhalation device (Spiriva with HandiHaler) 1 cap inhalation DAILY 07/07/23 [History Last Taken Unknown] Allergy/AdvReac Type Severity Reaction Status Date / Time Penicillins Allergy Unknown Verified 08/14/23 21:13 Family History Father COPD (chronic obstructive pulmonary disease) Mother Breast cancer Surgical History History of left knee replacement S/P ear surgery Social History Smoking Status: Former smoker Tobacco: How many years used: 12 how long ago did patient quit smokin second hand exposure: Yes alcohol intake: never substance use type: does not use EXAM Physical Exam Const Vital Signs: 08/14/23 21:13 Temperature 97.8 F Temperature Source Temporal Pulse Rate 109 H Respiratory Rate 18 Blood Pressure 147/93 H Blood Pressure Mean 111 Pulse Ox 94 MDM MDM MDM Narrative Medical decision making narrative: HISTORY OF PRESENT ILLNESS: 57-year-old male presents with acute on chronic right knee pain. No injury endorsed. States he is dealt with chronic knee pain for the last ~2 years and has been worse over the last several days. Notes taking oral meloxicam without relief. Denies any fever. Denies a history of surgery to right knee. Does note similar symptoms in his left knee however that is since undergone a total knee replacement which he endorses improved his symptoms. He denies any DVT risk factors. REVIEW OF SYSTEMS: Pertinent positives: Right knee pain Pertinent negatives: Weakness, numbness, loss sensation, discoloration, coolness to touch, unilateral leg swelling PHYSICAL EXAM: Nursing triage notes reviewed, Vital signs reviewed Constitutional: please see mdm Extremities: No edema, decreased range of motion secondary to pain in right knee however pain is out of proportion to exam. There is no obvious effusion, compartments are soft, patella appears in good alignment. Intact quadriceps tendon complex. Neuro: Intact sensation L1-S1 dermatomal distributions. Intact 5/5 strength in hip flexion (T12-L3). Knee extension (L2-L4). Ankle dorsiflexion (L4-L5). Ankle plantar flexion (S1). Great toe extension (L5). 2+ patellar and Achilles DTRs. Skin: No rash or lesions noted, no redness or erythema noted MEDICAL DECISION MAKING: Chief Complaint: Knee pain External records reviewed: No recent advanced imaging of the involved extremity Factors affecting care: Status post total knee replacement of the left knee Social determinants of health: Obesity History obtained from others: none Consults: none [facility] Narrative: Patient was hemodynamically stable, afebrile, nontoxic-appearing. Exam with neurovascular intact right lower extremity. No clinical signs of septic arthritis, DVT, arterial occlusion, compartment syndrome, quadriceps tendon rupture I suspect the patient is suffering from osteoarthritis likely benefit from evaluation from pain management and orthopedic surgery for potential replacement. I suspect the patient's symptoms are exacerbated by morbid obesity (BMI 50.2). Encouraged tylenol, ibuprofen and RICE therapy. Encouraged weight loss. ALL IMAGES (IF OBTAINED) HAVE BEEN PERSONALLY REVIEWED AND INTERPRETED BY MYSELF. I obtained an x-ray. X-ray was personally read reviewed by myself and shows no evidence of acute fracture dislocation. The patient and/or family, caregivers express understanding. The patient and/or family, caregivers agrees with the plan. Shared decision making: I will have a discussion with the patient and or visitors regarding risk/benefits of further testing or admission. They will be made aware of of the risk/benefits inherent in this decision they will be given the opportunity to voice understanding. Total critical care time today provided was at least 0 [] minutes. This excludes separately billable procedures. Critical care time (if documented) is secondary to the patient having high probability of clinically significant/life threatening deterioration in the patient's condition which required my urgent intervention. Impression: 1. Acute on chronic right knee pain 2. Morbid obesity Dispo: Discharge Radiography Chest X-Ray - ED: Read by ED Physician Diagnostic Testing: Clinical Impression(s) from Imaging Studies Knee X-Ray 08/14/23 21:31 IMPRESSION: No definite acute or significant abnormality seen. No effusion is seen. Electronically Signed: Bruce Espinosa MD at 22:41 EDT , Discharge Plan Triage Chief Complaint: Lower Extremity Injury ED Provider: Scout Gutierrez Dx/Rx/DC Orders Instructions: ED Knee Pain of Uncertain Cause Prescriptions: No Action albuterol sulfate 1 PUFF inhaler 1 puff inhalation Q6H PRN PRN (Reason: Wheezing) lisinopril-hydrochlorothiazide 1 EACH tablet 1 tab PO DAILY albuterol sulfate [ProAir HFA] 90 mcg/actuation HFA aerosol inhaler 1 inh inhalation Q6H PRN (Reason: shortness of breath or wheezing) Qty: 8.5 0 RF albuterol sulfate 2.5 mg/0.5 mL solution for nebulization 2.5 mg inhalation Q6H PRN (Reason: shortness of breath or wheezing) Qty: 30 0RF Rx Instructions: for up to 3 doses tiotropium bromide [Spiriva with HandiHaler] 18 mcg capsule, w/inhalation device 1 cap inhalation DAILY Rx Instructions: puncture 1 cap using device; one dose = 2 inhalations prednisone 50 mg tablet 50 mg PO DAILY Qty: 5 0RF Stand Alone Forms: ED Work / School Excuse Primary Care Provider: Anika Velazco Referrals: Jean Claude Carver MD [Med Staff - Active Staff] - Cesar Seth DO [Med Staff - Active Staff] - Activity Restrictions/Additional Instructions: Thank you for trusting us with your care today! Please take Tylenol (2 pills, 650 mg), ibuprofen (2 pills, 400 mg) every 6 hours as needed for pain and fever control. Please return to the emergency department if your symptoms change or worsen. Specifically develop discoloration of the involved extremity, severe pain, fever, nausea vomiting, inability to move or feel your involved extremity. Please follow with pain management as well as orthopedic surgery for further outpatient evaluation and management. Disposition Disposition: Home, Self Care
[2023-08-14 23:49] VITALS: PULSE 90; RESP 18; O2SAT 97
== END 2023-08-15 00:08 | disposition home or self-care (01) ==
PROVIDERS: Emergency Provider Emergency Medicine; PCP Internal Medicine; Visit Provider Emergency Medicine
DX: M25.561 Pain in right knee (principal); J43.9 Emphysema, unspecified; E66.01 Morbid (severe) obesity due to excess calories; I10 Essential (primary) hypertension; G89.29 Other chronic pain; Z96.652 Presence of left artificial knee joint; Z87.891 Personal history of nicotine dependence
CPT/HCPCS: 73564; 99282

== ENCOUNTER 2023-10-07 14:59 | Emergency (ER) | payer MEDICAID, SELFPAY ==
[2023-10-07 15:01] VITALS: BP 165/94; PULSE 105; RESP 20; TEMP 36.2; O2SAT 96
[2023-10-07 15:07] VITALS: BMI 49.6
--- NOTE | 2023-10-07 15:34 | EDS_ITS ---
HPI <ROSALIE Walters - Last Filed: 10/07/23 16:56> History of Present Illness Chief Complaint: Lower Extremity Injury Narrative Narrative: 57-year-old male presents with acute on chronic right knee pain. It flared up 3 months ago he was seen here had an x-ray and was told it was osteoarthritis. He was taking Tylenol every 6 hours which only minimally helps. About 2 weeks ago he saw an orthopedic doctor in [facility] and had another x-ray. He was told he cou ld trial a pill or knee injection for osteoarthritis and elected to trial the pills. He is not sure what it is but it did not help. His knee hurts worse with walking and he has to stand and move at his job at a [employer]. Today he was taking him a while to walk to the car and he decided to come here instead of go to work. He had no recent injury. No weakness or paresthesias. No calf pain or swelling or DVT risk factors. [facility] <ROSALIE Walters - Last Filed: 10/07/23 16:56> [facility] Medical History Asthma COPD (chronic obstructive pulmonary disease) Emphysema lung Former smoker HTN (hypertension) Hypertension FREDERICK (obstructive sleep apnea) Home Medications albuterol sulfate 90 mcg/actuation aerosol inhaler 1 puff inhalation Q6H PRN PRN Wheezing 04/05/20 [History Last Taken 04/05/20 09:00] lisinopril 10 mg-hydrochlorothiazide 12.5 mg tablet 1 tab PO DAILY 12/17/20 [History Last Taken Unknown] albuterol sulfate 2.5 mg/0.5 mL solution for nebulization 2.5 mg (0.5 mL) inhalation Q6H PRN shortness of breath or wheezing #30 ea 11/07/22 [Rx Last Taken Unknown] albuterol sulfate 90 mcg/actuation aerosol inhaler (ProAir HFA) 1 inh inhalation Q6H PRN shortness of breath or wheezing #8.5 grams 11/07/22 [Rx Last Taken Unknown] prednisone 50 mg tablet 50 mg PO DAILY #5 tabs 07/07/23 [Rx Last Taken Unknown] tiotropium bromide 18 mcg capsule with inhalation device (Spiriva with Hand iHaler) 1 cap inhalation DAILY 07/07/23 [History Last Taken Unknown] hydrocodone-acetaminophen 5-325mg 5mg-325mg 1 tab PO Q6H PRN pain 3 days #12 tabs 10/07/23 [Rx Last Taken Unknown] Allergy/AdvReac Type Severity Reaction Status Date / Time Penicillins Allergy Unknown Verified 10/07/23 15:00 Family History Father COPD (chronic obstructive pulmonary disease) Mother Breast cancer Surgical History History of left knee replacement S/P ear surgery Social History Smoking Status: Former smoker Tobacco: How many years used: 12 how long ago did patient quit smokin second hand exposure: Yes alcohol intake: never substance use type: does not use ROS <ROSALIE Walters - Last Filed: 10/07/23 16:56> ROS ED ROS Narrative Constitutional: Negative for fever, chills, malaise. Neuro: Negative for motor/sensory dysfunction. Skin: Negative for rash,wound. Musc: Positive for right knee pain, swelling. EXAM <ROSALIE Walters - Last Filed: 10/07/23 16:56> Physical Exam Narrative Exam Narrative: CONST: Patient sitting in no acute distress. EYES: Normal inspection. NECK: Normal inspection. RESP: No respiratory distress, CTAB. CVS: Regular rate and rhythm, no murmur, no gallop. SKIN: Color normal, no rash, warm, dry, intact. EXTREMITIES: Tender palpation over right knee, full range of motion, negative anterior/posterior and varus valgus testing. 5/5 strength in knee flexion/extension and DF/PF, normal sensation, 2+ DP pulse. Compartments soft. NEURO: Oriented x4. PSYCH: Normal affect. Const Vital Signs: 10/07/23 15:01 Temperature 97.1 F L Temperature Source Temporal Pulse Rate 105 H Respiratory Rate 20 H Blood Pressure 165/94 H Blood Pressure Mean 117 Pulse Ox 96 Oxygen Delivery Method Room Air <Dr. Carlos Meyers DO - Last Filed: 10/07/23 17:01> Physical Exam Const Vital Signs: 10/07/23 15:01 Temperature 97.1 F L Temperature Source Temporal Pulse Rate 105 H Respiratory Rate 20 H Blood Pressure 165/94 H Blood Pressure Mean 117 Pulse Ox 96 Oxygen Delivery Method Room Air [facility] <ROSALIE Walters - Last Filed: 10/07/23 16:56> [facility] Narrative Medical decision making narrative: Patient has chronic right knee pain with history of osteoarthritis. He has had no new injury. He has had 2 x-rays within the last 6 weeks 1 of which is in our system and I reviewed on 08/14 which shows arthritic changes. Since there is no new trauma and he is neurovascularly intact I did not order repeat imaging. There is no erythema, warmth, fever so I do not suspect septic joint. His pain was treated with Toradol and Bronx and I prescribed a short course of Bronx for home and instructed him to see his orthopedic doctor. They offered him joint injections in the past. He was comfortable with this plan and discharged in stable condition. <Dr. Carlos Meyers DO - Last Filed: 10/07/23 17:01> [facility] Narrative Medical decision making narrative: Patient has chronic right knee pain with history of osteoarthritis. He has had no new injury. He has had 2 x-rays within the last 6 weeks 1 of which is in our system and I reviewed on 08/14 which shows arthritic changes. Since there is no new trauma and he is neurovascularly intact I did not order repeat imaging. There is no erythema, warmth, fever so I do not suspect septic joint. His pain was treated with Toradol and Bronx and I prescribed a short course of Bronx for home and instructed him to see his orthopedic doctor. They offered him joint injections in the past. He was comfortable with this plan and discharged in stable condition. This patient was seen with a PA/TIMBER FELLER Individually assessed they patient including history and physical. I have reviewed everything on the chart that is available and agree with the documentation provided by the PA/TIMBER FELLER including discussion about the assessment, treatment plan, discussion, and return precautions. Patient with acute on chronic episode of knee pain on the right. Patient with 2 recent x-rays which were both negative. He was told he has osteoarthritis. He has declined injection by his orthopedist. He tried oral medication which states is not helping. No evidence of septic joint. No systemic signs or symptoms. Patient treated here in the ED with Toradol and Bronx. He will be given a short supply of Bronx for home. Patient to follow-up with orthopedist to ensure resolution. Discharge Plan Triage Chief Complaint: Lower Extremity Injury ED Midlevel Provider: Natasha Thomas ED Provider: Carlos Meyers Dx/Rx/DC Orders Clinical Impression: Morbid obesity, Chronic pain of right knee, Osteoarthritis Instructions: Arthritis: Exercise Prescriptions: New hydrocodone-acetaminophen 5-325 mg tablet 1 tab PO Q6H PRN (Reason: pain) 3 Days Qty: 12 0RF No Action albuterol sulfate 1 PUFF inhaler 1 puff inhalation Q6H PRN PRN (Reason: Wheezing) lisinopril-hydrochlorothiazide 1 EACH tablet 1 tab PO DAILY albuterol sulfate [ProAir HFA] 90 mcg/actuation HFA aerosol inhaler 1 inh inhalation Q6H PRN (Reason: shortness of breath or wheezing) Qty: 8.5 0RF albuterol sulfate 2.5 mg/0.5 mL solution for nebulization 2.5 mg inhalation Q6H PRN (Reason: shortness of breath or wheezing) Qty: 30 0RF Rx Instructions: for up to 3 doses tiotropium bromide [Spiriva with HandiHaler] 18 mcg capsule, w/inhalation device 1 cap inhalation DAILY Rx Instructions: puncture 1 cap using device; one dose = 2 inhalations prednisone 50 mg tablet 50 mg PO DAILY Qty: 5 0RF Primary Care Provider: Anika Velazco Referrals: Anika Velazco MD [Primary Care Provider] - Activity Restrictions/Additional Instructions: Follow-up with your orthopedic doctor Disposition Disposition: Home, Self Care
[2023-10-07] MEDS: Ondansetron ODT 4 MG Tablet PO (16:04)
[2023-10-07] MEDS: HYDROcodone Bitartrate/Apap 5/325 Tablet PO (16:04)
[2023-10-07] MEDS: Ketorolac 30 MG/ML Syringe IM (16:05)
[2023-10-07 17:00] VITALS: BP 129/62; PULSE 86; RESP 18; O2SAT 92
== END 2023-10-07 17:07 | disposition home or self-care (01) ==
PROVIDERS: Emergency Provider Student in an Organized Health Care Education/Training Program; PCP Internal Medicine; Visit Provider Student in an Organized Health Care Education/Training Program
DX: M17.11 Unilateral primary osteoarthritis, right knee (principal); J43.9 Emphysema, unspecified; E66.01 Morbid (severe) obesity due to excess calories; Z87.891 Personal history of nicotine dependence; I10 Essential (primary) hypertension; G89.29 Other chronic pain
CPT/HCPCS: 96372; 99283

== ENCOUNTER 2024-03-29 14:35 | Emergency (ER) | payer SELFPAY ==
[2024-03-29 14:37] VITALS: BP 192/93; PULSE 94; RESP 16; RESP 18; TEMP 35.6; O2SAT 99; BMI 52.1
[2024-03-29 14:38] VITALS: BP 192/93; PULSE 94; RESP 18; TEMP 35.6; O2SAT 99
[2024-03-29 14:53] VITALS: O2SAT 96
--- NOTE | 2024-03-29 14:59 | EX.ED.DYSGE1 ---
HPI <BETTE Mejía - Last Filed: 03/29/24 15:02> History of Present Illness Chief Complaint: Abd Pain Narrative Narrative: Patient is a 58-year-old male with history of morbid obesity, CAD hypertension who presents to the emergency department for 2 days of cough, shortness of breath. Patient also complained of sore throat. Patient dates his is also ill. Patient states his last time he was on steroids was greater than 1 month ago. He does not smoke cigarettes. Patient states that his cough is hurting his upper abdomen. He denies any chest pain, denies any lower extremity swelling. Denies any known fever or chills. [facility] <BETTE Mejía - Last Filed: 03/29/24 15:02> [facility] Medical History Asthma COPD (chronic obstructive pulmonary disease) Emphysema lung Former smoker HTN (hypertension) Hypertension FREDERICK (obstructive sleep apnea) Home Medications ?Medication ?Instructions ?Recorded ?Last Taken ?Type albuterol sulfate 90 mcg/actuation 1 puff inhalation Q6H PRN PRN 04/05/20 04/05/20 09:00 History aerosol inhaler Wheezing lisinopril 10 1 tab PO DAILY 12/17/20 Unknown History mg-hydrochlorothiazide 12.5 mg tablet albuterol sulfate 2.5 mg/0.5 mL 2.5 mg (0.5 mL) inhalation Q6H PRN 11/07/22 Unknown Rx solution for nebulization shortness of breath or wheezing #30 ea albuterol sulfate 90 mcg/actuation 1 inh inhalation Q6H PRN shortness 11/07/22 Unknown Rx aerosol inhaler (ProAir HFA) of breath or wheezing #8.5 grams prednisone 50 mg tablet 50 mg PO DAILY #5 tabs 07/07/23 Unknown Rx tiotropium bromide 18 mcg capsule 1 cap inhalation DAILY 07/07/23 Unknown History with inhalation device (Spiriva with HandiHaler) hydrocodone-acetaminophen 5-325mg 1 tab PO Q6H PRN pain 3 days #12 10/07/23 Unknown Rx 5mg-325mg tabs doxycycline hyclate 100 mg 100 mg PO Q24H #14 tabs 03/29/24 Unknown Rx tablet,delayed release prednisone 50 mg tablet 50 mg PO DAILY #5 tabs 03/29/24 Unknown Rx Allergy/AdvReac Type Severity Reaction Status Date / Time Penicillins Allergy Unknown Verified 03/29/24 14:36 Family History Father COPD (chronic obstructive pulmonary disease) Mother Breast cancer Surgical History History of left knee replacement S/P ear surgery Social History Smoking Status: Former smoker Tobacco: How many years used: 12 how long ago did patient quit smokin second hand exposure: Yes alcohol intake: never substance use type: does not use ROS <BETTE Mejía - Last Filed: 03/29/24 15:02> ROS ED ROS Narrative Constitutional: Negative for fever, chills, weight loss. Positive for generalized weakness Eyes: Negative for vision loss, vision change, double vision ENT: Negative for any ear pain. Positive for sore throat, congestion Cardiovascular: Negative for any chest pain, tightness, palpitations Respiratory: Negative for any hemoptysis, dyspnea, dyspnea on exertion, orthopnea. Positive for cough, sputum production Gastrointestinal: Negative for any abdominal pain, nausea, vomiting, diarrhea, constipation, blood in stool, blood in vomit : Negative for any urinary frequency, dysuria, retention, blood in urine Muscle skeletal: Negative for any neck pain, back pain Neurological: Negative for any headache, syncope, dizziness Skin: Negative for any rashes, itching, abrasions, lacerations Psychiatric: Negative for any depression, anxiety, stress, suicidal ideation, homicidal ideation Hematologic: Negative for any excessive bruising, easy bleeding EXAM <BETTE Mejía - Last Filed: 03/29/24 15:02> Physical Exam Narrative Exam Narrative: Vital signs reviewed. HEET: Head normocephalic atraumatic, right TM appears noninfectious, no bulging. Left TM was markedly different. 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 Posterior pharynx is clear, dry mucous membranes. Nares clear bilaterally. Neck: Supple with no lymphadenopathy or tenderness. No signs of meningismus. Cardiac: Regular rate and rhythm no murmurs gallops or rubs, equal peripheral pulses bilaterally. Respiratory: Patient has expiratory wheezes throughout pulmonary examination.. No chest tenderness. Abdomen: Soft, nontender, nondistended. No abdominal bruit or pulsatile masses. No hepatosplenomegaly Extremities: No peripheral edema, no signs of gross trauma or deformity. Active full range of motion of all extremities. Neuro: Cranial nerves II through XII intact, no focal neurological deficits. Skin: Clean dry and intact with no rash, purpura, petechiae, vesicles or pustules. Backs/flank: No CVA tenderness, no midline spinal tenderness, no deformity. Psych: Normal mood and affect. No SI, HI or acute psychosis. Const Vital Signs: 03/29/24 14:37 03/29/24 14:37 03/29/24 14:38 Temperature 96.1 F L 96.1 F L 96.1 F L Temperature Source Temporal Temporal Temporal Pulse Rate 94 94 94 Respiratory Rate 16 18 18 Respiratory Effort Respiratory Depth Respiratory Pattern Blood Pressure 192/93 H 192/93 H 192/93 H Blood Pressure Mean 126 126 126 Pulse Ox 99 99 99 Oxygen Delivery Method Room Air Room Air Room Air 03/29/24 14:53 03/29/24 15:29 03/29/24 15:29 Temperature Temperature Source Pulse Rate 88 Respiratory Rate 16 Respiratory Effort Normal Short of Breath Respiratory Depth Normal Respiratory Pattern Normal Blood Pressure Blood Pressure Mean Pulse Ox 94 Oxygen Delivery Method Room Air Room Air Positive obese Nutritional Appearance: obese <Dr. Carlos Meyers, DO - Last Filed: 03/30/24 16:46> Physical Exam Const Vital Signs: 03/29/24 14:37 03/29/24 14:37 03/29/24 14:38 Temperature 96.1 F L 96.1 F L 96.1 F L Temperature Source Temporal Temporal Temporal Pulse Rate 94 94 94 Respiratory Rate 16 18 18 Respiratory Effort Respiratory Depth Respiratory Pattern Blood Pressure 192/93 H 192/93 H 192/93 H Blood Pressure Mean 126 126 126 Pulse Ox 99 99 99 Oxygen Delivery Method Room Air Room Air Room Air 03/29/24 14:53 03/29/24 15:29 03/29/24 15:29 Temperature Temperature Source Pulse Rate 88 Respiratory Rate 16 Respiratory Effort Normal Short of Breath Respiratory Depth Normal Respiratory Pattern Normal Blood Pressure Blood Pressure Mean Pulse Ox 94 Oxygen Delivery Method Room Air Room Air [facility] <Alf Reed NP-C - Last Filed: 03/29/24 15:02> [facility] Radiography Diagnostic Testing: Clinical Impression(s) from Imaging Studies Chest X-Ray 03/29/24 15:06 IMPRESSION: No acute abnormality is seen. Electronically Signed: Willam Vu MD at 15:20 EDT , Treatment and Re-Evaluation :: Differential diagnosis includes however is not limited to: CHF exacerbation, community-acquired pneumonia, ACS, NM, sepsis COVID-19/influenza/strep/RSV Patient appears to be in no obvious respiratory distress, patient is hypertensive however patient is not hypoxic. Patient does have audible wheezing. He does have a history of COPD. Patient will receive breathing treatments, oral steroids, patient received a two-view chest x-ray. All radiologic examinations were read, reviewed by the emergency department attending. From these reads, a plan of care will be put in place. Patient will be reevaluated, COVID/RSV/influenza/strep will be considered, be sent. <Dr. Carlos Meyers DO - Last Filed: 03/30/24 16:46> [facility] Narrative Medical decision making narrative: Differential diagnosis includes however is not limited to: CHF exacerbation, community-acquired pneumonia, ACS, NM, sepsis COVID-19/influenza/strep/RSV Patient appears to be in no obvious respiratory distress, patient is hypertensive however patient is not hypoxic. Patient does have audible wheezing. He does have a history of COPD. Patient will receive breathing treatments, oral steroids, patient received a two-view chest x-ray. All radiologic examinations were read, reviewed by the emergency department attending. From these reads, a plan of care will be put in place. Patient will be reevaluated, COVID/RSV/influenza/strep will be considered, be sent. This patient was seen with a PA/LEATHER CARVER Individually assessed they patient including history and physical. I have reviewed everything on the chart that is available and agree with the documentation provided by the PA/LEATHER CARVER including discussion about the assessment, treatment plan, discussion, and return precautions. Patient presenting with shortness of breath. He does not have any hypoxia notable. He is wheezing on examination. He is given breathing treatments and steroids and he feels better on reevaluation. Viral testing is negative. Two-view chest x-ray my interpretation shows no acute process. Radiology interpretation agrees. Patient given return precautions. Radiography Diagnostic Testing: Clinical Impression(s) from Imaging Studies Chest X-Ray 03/29/24 15:06 IMPRESSION: No acute abnormality is seen. Electronically Signed: Willam Vu MD at 15:20 EDT , Discharge Plan Triage Chief Complaint: Abd Pain Other Complaint: Cough Nausea/Vomiting/Diarrhea ED Midlevel Provider: Alf Reed ED Provider: Carlos Meyers Dx/Rx/DC Orders Instructions: ED Bronchitis with Wheezing (Adult) Prescriptions: New prednisone 50 mg tablet 50 mg PO DAILY Qty: 5 0RF doxycycline hyclate 100 mg tablet,delayed release (DR/EC) 100 mg PO Q24H Qty: 14 0RF No Action albuterol sulfate 1 PUFF inhaler 1 puff inhalation Q6H PRN PRN (Reason: Wheezing) lisinopril-hydrochlorothiazide 1 EACH tablet 1 tab PO DAILY albuterol sulfate [ProAir HFA] 90 mcg/actuation HFA aerosol inhaler 1 inh inhalation Q6H PRN (Reason: shortness of breath or wheezing) Qty: 8.5 0RF albuterol sulfate 2.5 mg/0.5 mL solution for nebulization 2.5 mg inhalation Q6H PRN (Reason: shortness of breath or wheezing) Qty: 30 0RF Rx Instructions: for up to 3 doses tiotropium bromide [Spiriva with HandiHaler] 18 mcg capsule, w/inhalation device 1 cap inhalation DAILY Rx Instructions: puncture 1 cap using device; one dose = 2 inhalations prednisone 50 mg tablet 50 mg PO DAILY Qty: 5 0RF hydrocodone-acetaminophen 5-325 mg tablet 1 tab PO Q6H PRN (Reason: pain) 3 Days Qty: 12 0RF Primary Care Provider: Anika Velazco Referrals: Anika Velazco MD [Primary Care Provider] - Print Language: Arabic Disposition Disposition: Home, Self Care Discharge Date/Time: 03/29/24 16:18
--- NOTE | 2024-03-29 15:06 | RAD_ITS ---
STUDY: X-RAY CHEST REASON FOR EXAM: Male, 58 years old. Cough TECHNIQUE: PA and lateral views of the chest. COMPARISON: Comparison is made with prior study July 07, 2023. FINDINGS: Hyperinflation. The lungs are clear. There is no demonstrated pleural abnormality. Normal size heart. Normal mediastinum and mo. Normal visualized pulmonary arteries. Normal visualized aortic arch and descending thoracic aorta. There are degenerative changes of the visualized thoracic spine. Normal visualized ribs, clavicles, and shoulders. There is no demonstrated abnormality of the visualized soft tissue structures of the upper abdomen. RAD/Chest PA and Lateral IMPRESSION: No acute abnormality is seen. Electronically Signed: Willam Vu MD at 15:20 EDT ,
[2024-03-29] MEDS: predniSONE 20 MG Tablet 60 MG PO (15:24)
[2024-03-29] MEDS: Albuterol 2.5 MG/3 ML VIAL.NEB. 5 MG INHALATION (15:28)
[2024-03-29] MEDS: Ipratropium/Albuterol Sulfate 3 ML AMPUL.NEB INHALATION (15:28)
[2024-03-29 15:29] VITALS: PULSE 88; RESP 16; O2SAT 94
== END 2024-03-29 16:18 | disposition home or self-care (01) ==
PROVIDERS: Emergency Provider Student in an Organized Health Care Education/Training Program; PCP Internal Medicine; Visit Provider Student in an Organized Health Care Education/Training Program
DX: R11.2 Nausea with vomiting, unspecified (principal); J43.9 Emphysema, unspecified; E66.01 Morbid (severe) obesity due to excess calories; J02.9 Acute pharyngitis, unspecified; Z87.891 Personal history of nicotine dependence; R19.7 Diarrhea, unspecified; R10.9 Unspecified abdominal pain; I25.10 Atherosclerotic heart disease of native coronary artery without angina pectoris; I10 Essential (primary) hypertension; R05.9 Cough, unspecified
CPT/HCPCS: 71046; 87631; 87651; 94640; 99283

== ENCOUNTER 2025-08-30 07:56 | Emergency (ER) | payer MEDICAID, SELFPAY ==
[2025-08-30 07:58] VITALS: BP 142/70; PULSE 95; RESP 20; TEMP 36.6; O2SAT 95; BMI 52.3
--- NOTE | 2025-08-30 08:16 | EX.ED.DYSGE1 ---
HPI History of Present Illness Chief Complaint: Other, Pain/Inj Detail of Chief Complaint: neck pain Informant: patient Narrative Narrative: Patient is a 59-year-old male with a history of HTN and knee pain presenting with neck stiffness and occipital pain. - Reports severe stiffness in the posterior neck and pain in the occipital region for 4-5 days, worsening with movement. - Denies known trauma; symptoms began upon waking. - Pain exacerbated by certain positions; must sleep on his side due to discomfort. - Associated with intermittent headaches, which began 1-2 days before neck pain onset; attributes headaches to caffeine withdrawal from reducing soda intake. - Denies photophobia, emesis, fever, or other systemic symptoms. - Uses ibuprofen with partial relief. - Denies changes in vision, numbness, tingling, or weakness in extremities. - Reports nasal congestion upon waking, attributed to air conditioning use. - On antihypertensive and diuretic medications; denies use of anticoagulants. - Limited mobility due to knee pain, affecting ability to exercise and ambulate; uses a cane for support. [facility] Medical History Former smoker Hypertension [place] (obstructive sleep apnea) Emphysema lung Asthma HTN (hypertension) COPD (chronic obstructive pulmonary disease) Home Medications ?Medication ?Instructions ?Recorded ?Last Taken ?Type albuterol sulfate 90 mcg/actuation 1 puff inhalation Q6H PRN PRN 04/05/20 04/05/20 09:00 History aerosol inhaler Wheezing lisinopril 10 1 tab PO DAILY 12/17/20 Unknown History mg-hydrochlorothiazide 12.5 mg tablet albuterol sulfate 2.5 mg/0.5 mL 2.5 mg (0.5 mL) inhalation Q6H PRN 11/07/22 Unknown Rx solution for nebulization shortness of breath or wheezing #30 ea albuterol sulfate 90 mcg/actuation 1 inh inhalation Q6H PRN shortness 11/07/22 Unknown Rx aerosol inhaler (ProAir HFA) of breath or wheezing #8.5 grams prednisone 50 mg tablet 50 mg PO DAILY #5 tabs 07/07/23 Unknown Rx tiotropium bromide 18 mcg capsule 1 cap inhalation DAILY 07/07/23 Unknown History with inhalation device (Spiriva with HandiHaler) hydrocodone-acetaminophen 5-325mg 1 tab PO Q6H PRN pain 3 days #12 10/07/23 Unknown Rx 5mg-325mg tabs doxycycline hyclate 100 mg 100 mg PO Q24H #14 tabs 03/29/24 Unknown Rx tablet,delayed release prednisone 50 mg tablet 50 mg PO DAILY #5 tabs 03/29/24 Unknown Rx orphenadrine citrate 100 mg 100 mg PO Q12H PRN muscle pain #10 08/30/25 Unknown Rx tablet,extended release tabs Allergy/AdvReac Type Severity Reaction Status Date / Time Penicillins Allergy Unknown Verified 08/30/25 07:59 Family History Father COPD (chronic obstructive pulmonary disease) Mother Breast cancer Surgical History S/P ear surgery History of left knee replacement Social History Smoking Status: Former smoker Tobacco: How many years used: 12 how long ago did patient quit smokin second hand exposure: Yes alcohol intake: never substance use type: does not use ROS ROS ED Constitutional Constitutional ED: Denies chills or fever(s) Eyes Eyes: Denies change in vision or diplopia ENT ENT ED: Denies rhinorrhea or sore throat Cardiovascular Cardiovascular: Denies chest pain or palpitations Respiratory/Chest Respiratory/Chest: Denies cough or dyspnea Gastrointestinal Gastrointestinal: Denies abdominal pain, diarrhea, nausea or vomiting Genitourinary Genitourinary ED: Denies dysuria or hematuria Musculoskeletal Musculoskeletal: Reports neck pain; Denies back pain Integumentary Denies abscess or rash Neurologic Neurologic: Reports headache(s); Denies paresthesias or weakness Psychiatric Psychiatric: Denies anxiety or suicidal thoughts EXAM Physical Exam Const Vital Signs: 08/30/25 07:58 08/30/25 08:04 Temperature 97.9 F Temperature Source Oral Pulse Rate 95 Respiratory Rate 20 H Respiratory Effort Normal Non-Labored Blood Pressure 142/70 H Blood Pressure Mean 94 Pulse Ox 95 Oxygen Delivery Method Room Air Positive well nourished and well developed General Appearance ED: well developed and NAD HEENT Reports moist mucous membranes normocephalic and atraumatic Eyes PERRL and EOMs intact bilaterally Neck full ROM, no lymphadenopathy and supple Neck Narrative: Tender in the right paraspinal cervical musculature especially near the occiput. No lymphadenopathy. No midline tenderness or left-sided tenderness. Sternocleidomastoid and clavicle nontender. No swelling no carotid bruits. General: tenderness Chest Wall inspection of chest normal and palpation of chest normal Resp normal respiratory effort Back/Spine no CVA tenderness General Back: other FROM Extremity normal to inspection General Extremety ED: Yes edema; Negative for pulses abnormal or tenderness General Extremity: edema bilateral lower extremity Details: moderate (Symmetric, with multiple venous varicosities and some mild dependent erythema consistent with chronic venous stasis dermatitis); Negative for pulses abnormal Neuro oriented x3, CN's II-XII intact bilaterally and no sensory deficits noted Sensorium / Orientation: awake and alert Motor Exam: strength 5/5 throughout Psych mental status grossly normal Skin no rashes or lesions noted and no wounds MDM MDM MDM Narrative Medical decision making narrative: Assessment: The patient is a 59-year-old male presenting for [id number]-day history of right-sided posterior neck stiffness with associated occipital headache that began one-to-two days earlier. Exam demonstrates reproducible tenderness over the right paraspinal cervical musculature, full range of motion, supple neck, and normal neurologic findings without photophobia or fever. Given the localized muscular tenderness, relief with ibuprofen, absence of meningismus, and normal neurologic exam, a musculoskeletal cervical strain is most likely while meningitis is felt to be unlikely. Plan: - Provided education on benign musculoskeletal etiology, expected course, and red-flag return precautions (fever, neurologic change, confusion). - Continued home ibuprofen as needed for pain. - Prescribed muscle relaxer for nocturnal use to improve sleep and augment NSAID therapy. - Discharged home with instruction to follow up with PCP if symptoms persist beyond two weeks or worsen sooner. Discharge Plan Triage Chief Complaint: Other, Pain/Inj ED Provider: Ovi Langford Dx/Rx/DC Orders Clinical Impression: Strain of muscle, fascia and tendon at neck level, initial encounter, Cervicalgia, Nonintractable episodic headache, Edema of both lower extremities Instructions: ED Neck Sprain or Strain Prescriptions: New orphenadrine citrate 100 mg tablet extended release 100 mg PO Q12H PRN (Reason: muscle pain) Qty: 10 0RF No Action albuterol sulfate 1 PUFF inhaler 1 puff inhalation Q6H PRN PRN (Reason: Wheezing) lisinopril-hydrochlorothiazide 1 EACH tablet 1 tab PO DAILY albuterol sulfate [ProAir HFA] 90 mcg/actuation HFA aerosol inhaler 1 inh inhalation Q6H PRN (Reason: shortness of breath or wheezing) Qty: 8.5 0RF albuterol sulfate 2.5 mg/0.5 mL solution for nebulization 2.5 mg inhalation Q6H PRN (Reason: shortness of breath or wheezing) Qty: 30 0RF Rx Instructions: for up to 3 doses tiotropium bromide [Spiriva with HandiHaler] 18 mcg capsule, w/inhalation device 1 cap inhalation DAILY Rx Instructions: puncture 1 cap using device; one dose = 2 inhalations prednisone 50 mg tablet 50 mg PO DAILY Qty: 5 0RF hydrocodone-acetaminophen 5-325 mg tablet 1 tab PO Q6H PRN (Reason: pain) 3 Days Qty: 12 0RF prednisone 50 mg tablet 50 mg PO DAILY Qty: 5 0RF doxycycline hyclate 100 mg tablet,delayed release (DR/EC) 100 mg PO Q24H Qty: 14 0RF Primary Care Provider: Anika Velazco Referrals: Anika Velazco MD [Primary Care Provider, Internal Medicine] - 1 Week if not improving Activity Restrictions/Additional Instructions: - Continue taking ibuprofen at home for your neck pain as needed. - Take the prescribed muscle relaxer each evening to help relax your neck muscles and improve sleep. - If your neck pain does not improve within two weeks, schedule a follow-up appointment. - Go to the emergency department right away if you develop fever, confusion, numbness, weakness, or any new neurologic symptoms. Print Language: Urdu Disposition Disposition: Home, Self Care
--- OUTSIDE RECORDS SUMMARY | 2025-08-30 08:28 | XMS RPT_ITS | CCD ---
Author Organization [facility] Care Team Providers Care Biopsychologist Name Role Phone PROVIDER, UNKNOWN Unavailable Unavailable PROVIDER, UNKNOWN Unavailable Unavailable [place], North Unavailable Unavailable VIKTORIA JUÁREZ Attending Unavailable TALAMPAS, CARLOS Primary Care Unavailable USMAN CHU Attending Unavailable TALAMPAS, CARLOS Primary Care Unavailable ETHAN DANG Attending Unavailable TALAMPAS, CARLOS Primary Care Unavailable Taniya Capps Attending Unavailabl e TALAMPAS, CARLOS Primary Care Unavailable ETHAN DANG Attending Unavailable TALAMPAS, CARLOS Primary Care Unavailable PONCHO PARSON Admitting Unavailable TALAMPAS, CARLOS Primary Care Unavailable ROSEANNE BONDS Consulting Unavailable CARLOS FERNANDEZ Attending Unavailable BRAD JULIO Consulting Unavailable Carlos Garcia MD Primary Care Provider Carlos Garcia MD Primary Care Provider Carlos Garcia MD Primary Care Provider QUINTON CHEEK Referring Unavailable TALAMPAS, CARLOS D Primary Care Unavailable Jared Almaraz Attending Unavailable Talampliliana, Carlos D Primary Care Unavailable Scout Gutierrez Attending Unavailable Talampas, Carlos D Primary Care Unavailable Talampas, Carlos D Primary Care Unavailable Carlos Meyers Attending Unavailable Carlos Meyers Attending Unavailable Talampliliana, Carlos Joya Primary Care Unavailable Talampliliana, Carlos D Primary Care Unavailable Lani España Attending Unavailable Carlos Garcia MD Primary Care Provider Edward ART MANAGER.MAINTENANCE PERSON, Pura Unavailable Zully ART MANAGER.VOLLEYBALL REFEREE, Mya Unavailable DR CARLOS GARCIA MD Primary Care Physician ZOHAIB BANUELOS, ALAINA Attending Unavailmable GARCIA MD, DR GONZALEZ Primary Care Unavailable TALAMPAS, CARLOS D Primary Care Unavailable ZULLY, MYA Attending Unavailable SELF Referring Unavailable TALAMPAS, CARLOS D Primary Care Unavailable GREEN, PERRI Referring Unavailable TALAMPAS, CARLOS D Primary Care Unavailable TALAMPAS, CARLOS D Primary Care Unavailable TALAMPAS, CARLOS D Attending Unavailable TALAMPAS, CARLOS D Referring Unavailable TALAMPAS, CARLOS D Primary Care Unavailable LEON, PURA Attending Unavailable LEON, PURA Referring Unavailable ZULLY, MYA Referring Unavailable TALAMPAS, CARLOS D Primary Care Unavailable GRISELDA MADISON Attending Unavailable TALAMPAS, CARLOS D Primary Care Unavailable LEON, PURA Attending Unavailable ZULLY, MYA Referring Unavailable TALAMPAS, CARLOS D Primary Care Unavailable TALAMPAS, CARLOS D Primary Care Unavailable ZULLY, MYA Referring Unavailable Zully ART MANAGER.VOLLEYBALL REFEREE, Mya Unavailable Leon ART MANAGER.MAINTENANCE PERSON, Pura Unavailable Watmaricel ART MANAGER-VOLLEYBALL REFEREE, Ruthie A Unavailable NONE, NONE Unavailable Unavailable Allergies Allergy Classification Reported Allergen(s) Allergy Type Date of Onset Reaction(s) Facility hydroCHLOROthiazide / Lisinopril (1 source) hydroCHLOROthiazide / Lisinopril Drug Allergy 023 Other: See Comments [facility] Work Phone: Penicillins (antibiotic) (1 source) Penicillins Drug Allergy 007 Other: See Comments [facility] (20 sources) Penicillins; Translations: [PENICILLINS] Propensity to adverse reactions 007 Other: See Comments [facility] Work Phone: (6 sources) Penicillins Allergy to substance 022 Unknown [facility] (20 sources) hydroCHLOROthiazide / Lisinopril; Translations: [LISINOPRIL-HYDROCHLO ROTHIAZIDE] Drug Allergy 023 Other: See Comments [facility] Work Phone: (1 source) Penicillins Drug allergy (disorder) 024 [facility] Repository (2 sources) Penicillin; Translations: [penicillin] Drug Allergy 025 [facility] (1 source) Penicillins Drug Allergy 007 Other: See Comments [facility] Medications Current Medications Medication Drug Class(es) Dates Sig (Normalized) Sig (Original) acetaminophen 325 mg / HYDROcodone bitartrate 5 mg oral tablet (12 sources) Opioid Agonist Start: 10-07-2023 take 1 tablet by mouth every six hours Hydrocodone-Aceta minophen Active 1 TABLET PO EVERY 6 HOURS 12 October 07, 2023 Start: 12-06-2022 take 1 tablet by carlos th every six hours as needed Hydrocodone-Acetaminophen Active 1 TABLE T PO EVERY 6 HOURS NEEDED 10 December 06, 2022 Start: 11-24-2021 take 1 tablet by carlos th every six hours Hydrocodone-Acetaminophen Active 1 TABLE T PO EVERY 6 HOURS 10 November 24, 2021 Start: 06-17-2020 End: 06-20-2020 take 1 tablet by mouth every six hours as needed Hydrocodone-Acetaminophen Discontinued 1 TABLET PO EVERY 6 HOURS NEEDED 10 June 17, 2020 June 19, 2020 11:02pm Administered Medications Medication Order MAR Action Action Date Dose Rate Site tuberculin skin test, unspecified formulation Given 03/26/2012 (1 source) Administered Medications Medication Order MAR Action Action Date Dose Rate Site tuberculin skin test, unspecified formulation Given 03/26/2012 albuterol 0.83 mg/ml inhalation solution (20 sources) beta2-Adrenergic Agonist Start: 3 End: 4 take 2 puff(s) by inhalation every four hours as needed for wheezing albuterol HFA (VENTOLIN HFA) 90 mcg/actuation inhaler Indications: Chronic obstructive pulmonary disease, unspecified COPD type (HCC) Inhale 2 Puffs as instructed every 4 hours as needed for wheezing/shortness of breath. Prescribed by pulmonlogist 18 g 11 09/03/2024 Active Start: 11-07-2022 Albuterol Sulf ate Active 2.5 MG INHALATION EVERY 6 HOURS November 07, 2022 5:01am for up to 3 doses Start: 11-07-2022 Albuterol Sulf ate (Proair Hfa) 90 mcg/actuation HFA aerosol inhaler Active 1 INH INHALATION EVERY 6 HOURS 8.5 November 07, 2022 12:00am Start: 07-26-2021 End: 12-15-2022 take 2 puff(s) by inhalation every four hours as needed for wheezing albuterol HFA (VENTOLIN HFA) 90 mcg/actuation inhaler Indications: Chronic obstructive pulmonary disease, unspecified COPD type (HCC) Inhale 2 Puffs as instructed every 4 hours as needed for wheezing/shortness of breath. Prescribed by pulmonlogist 6.7 g 11 12/15/2022 Active Start: 07-20-2021 End: 09-03-2024 take 2.5 mg by inhalation every four hours as needed for chronic obstructive pulmonary disease and chronic obstructive pulmonary disease albuterol (PROVENTIL) 2.5 mg /3 mL (0.083 %) nebulizer solution Indications: Chronic obstructive pulmonary disease, unspecified COPD type (HCC) Use 3 mL via nebulizer every 4 hours as needed for wheezing/shortness of breath. Use over 5-15minutes. 150 mL 11 09/03/2024 Active Start: 04-05-2020 take 1 puff(s) by in halation every six hours as needed Albuterol Sulfate Active 1 PUFF inhalation EVERY 6 HOURS NEEDED April 04, 2020 11:00pm Comment on above: Use 3 mL via nebuliz er every 4 hours as needed for wheezing/shortness of breath. Use over 5-15minutes. Inhale 2 Puffs as in structed every 4 hours as needed for wheezing/shortness of breath. Prescribed by pulmonlogist azithromycin 250 mg oral tablet (1 source) Macrolide Antimicrobial Start: 023 End: 023 azithromycin (ZITHROMAX Z-CINDY) 250 mg tablet Indications: Acute infection of left external ear , Acute otitis media, left , Left facial swelling Take 2 tablets day one, then, 1 tablet daily until gone. 6 tablet 0 01/16/2023 01/21/2023 Active Comment on above: Take 2 tablets day o ne, then, 1 tablet daily until gone. celecoxib 400 mg oral capsule (5 sources) Nonsteroidal Anti-inflammatory Drug Start: 025 End: 025 take 1 capsule by mouth once daily for pain celecoxib 400 mg capsule Take 1 capsule by mouth once daily. Take with a meal. For neck and knee pain 90 capsule 1 12/16/2024 06/14/2025 Active Start: 10-15-2024 End: 11-14-2024 take 1 capsule by mouth once daily for pain celecoxib (CELEBREX) 200 mg capsule Take 1 capsule by mouth once daily. Take with a meal. For neck and knee pain 30 capsule 10/15/2024 11/14/2024 cetirizine hydrochloride 10 mg oral tablet (2 sources) Histamine-1 Receptor Antagonist Start: 01-12-2023 End: 02-11-2023 take 1 tablet by mouth once daily cetirizine (ZYRTEC) 10 mg tablet Take 1 tablet by mouth once daily. 30 tablet 5 01/12/2023 02/11/2023 Active Comment on above: Take 1 tablet by carlos once daily. cholecalciferol 0.05 mg oral capsule (8 sources) Vitamin D Start: 09-04-2024 take 1 capsule by mouth once daily Cholecalciferol, Vitamin D3, 50 mcg (2,000 unit) cap Take 1 capsule by mouth once daily. 90 capsule 1 09/04/2024 Active ciprofloxacin 2 mg/ml / hydrocortisone 10 mg/ml otic suspension (2 sources) Corticosteroid, Quinolone Antimicrobial Start: 01-16-2023 End: 01-23-2023 ciprofloxacin-hy drocortisone (CIPRO HC) otic suspension Indications: Acute infection of left external ear , Acute otitis media, left , Left facial swelling Use 3 Drops in both ears twice daily for 7 days. 10 mL 0 01/16/2023 01/23/2023 Active Start: 12-15-2022 End: 12-22-2022 ciprofloxacin-hydrocortisone (CIPRO HC) otic suspension Use 3 Drops in both ears twice daily for 7 days. 10 mL 0 12/15/2022 12/22/2022 Active Comment on above: Use 3 Drops in both ears twice daily for 7 days. cyclobenzaprine hydrochloride 10 mg oral tablet (14 sources) Muscle Relaxant Start: 10-15-20 take 1 tablet by mouth at bedtime as needed for pain cyclobenzaprine (FLEXERIL) 10 mg tablet Indications: Cervicalgia Take 1 tablet by mouth at bedtime as needed for muscle spasm or pain. 30 tablet 2 10/15/2024 Active Start: 06-17-2024 End: 09-03-2024 take 1 tablet by mouth every eight hours as needed cyclobenzaprine (FLEXERIL) 10 mg tablet Take 1 tablet by mouth three times a day as needed for muscle spasm. 21 tablet 06/17/2024 09/03/2024 Discontinued Start: 12-06-2022 take 10 mg by mouth three times daily Cyclobenzaprine Active 10 MG PO THREE TIMES A DAY December 06, 2022 12:00am Start: 11-24-2021 take 10 mg by mouth twice daily Cyclobenzaprine Active 10 MG PO TWICE A DAY November 24, 2021 12:00am diclofenac sodium 50 mg delayed release oral tablet (1 source) Nonsteroidal Anti-inflammatory Drug Start: 09-01-2023 End: 10-01-2023 take 1 tablet by mouth twice daily diclofenac, EC, (VOLTAREN) 50 mg EC tablet Indications: Primary osteoarthritis of right knee Take 1 tablet by mouth two times a day. 60 tablet 0 09/01/2023 10/01/2023 Active Comment on above: Take 1 tablet by mouth two times a day. Dulera 100 mcg-5 mcg/inh Metered Dose Inhaler (1 source) Start: 02-14-2019 take 1 dose by inhalation twice daily Dulera 100 mcg-5 mcg/inh Metered Dose Inhaler Dose = 2 puff(s), Inhalation, BID, # 13 gram(s), 0 Refill(s) Start Date: 02/14/19 Status: Ordered 120 actuat formoterol fumarate 0.005 mg/actuat / mometasone furoate 0.05 mg/actuat metered dose inhaler (20 sources) Corticosteroid, beta2-Adrenergic Agonist Start: 06-27-2023 End: 09-03-2024 take 2 puff(s) by inhalation twice daily mometasone-formote rol (DULERA) 50-5 mcg/actuation HFA aerosol inhaler Inhale 2 Puffs as instructed two times a day. 1 Each 5 09/03/2024 Active Start: 02-04-2021 End: 06-27-2023 take 2 puff(s) by inhalation twice daily mometasone-formoterol (DULERA) 100-5 mcg/actuation inhaler Indications: Chronic obstructive pulmonary disease, unspecified COPD type (HCC) Inhale 2 Puffs as instructed twice daily. Prescribed by pulmonology 1 Inhaler 11 02/04/2021 06/27/2023 Discontinued (Not on Formulary) Comment on above: Inhale 2 Puffs as in structed twice daily. Prescribed by pulmonology Inhale 2 Puffs as in structed twice daily. Inhale 2 Puffs as in structed two times a day. hydroCHLOROthiazide 25 mg oral tablet (20 sources) Thiazide Diuretic Start: 2023 End: 2024 take 1 tablet by mouth once daily hydroCHLOROthiazide 25 mg tablet Take 1 tablet by mouth once daily. 90 tablet 1 05/23/2025 Active Start: 06-27-2023 End: 04-05-2024 take 1 tablet by mouth once daily hydroCHLOROthiazide 25 mg tablet Take 1 tablet by mouth once daily. 30 tablet 5 12/11/2023 04/05/2024 Discontinued Comment on above: Take 1 tablet by carlos th once daily. lisinopril 5 mg oral tablet (20 sources) Angiotensin Converting Enzyme Inhibitor Start: 02-18-2025 take 1 tablet by mouth once daily lisinopril (ZESTRIL) 5 mg tablet Take 1 tablet by mouth once daily. 30 tablet 5 02/18/2025 Active Start: 07-13-2017 End: 08-05-2024 take 1 tablet by mouth once daily lisinopril (ZESTRIL) 5 mg tablet Take 1 tablet by mouth once daily. 30 tablet 5 08/05/2024 Active Comment on above: Take 1 tablet by carlos th once daily. meclizine hydrochloride 25 mg oral tablet (1 source) Antiemetic Start: 2 take 25 mg by mouth three times daily Meclizine Active 25 MG PO THREE TIMES A DAY June 21, 2022 5:48pm meloxicam 15 mg oral tablet (3 sources) Nonsteroidal Anti-inflammatory Drug Start: 3 End: 3 take 1 tablet by mouth once daily as needed for pain meloxicam (MOBIC) 15 mg tablet Indications: Acute pain of left ear Take 1 tablet by mouth once daily. as needed for pain. Take with food. 30 tablet 0 01/16/2023 02/15/2023 Active Start: 12-15-2022 End: 01-14-2023 take 1 tablet by mouth once daily for pain meloxicam (MOBIC) 15 mg tablet Indications: Acute left-sided low back pain with right-sided sciatica Take 1 tablet by mouth once daily. for pain. Take with food. For back pain 30 tablet 0 12/15/2022 01/14/2023 Active Comment on above: Take 1 tablet by carlos th once daily. for pain. Take with food. For back pain Take 1 tablet by carlos th once daily. as needed for pain. Take with food. metaxalone 800 mg oral tablet (5 sources) Start: 12-15-2022 End: 02-11-2023 take 1 tablet by mouth three times daily metaxalone (SKELAXIN) 800 mg tablet Indications: Acute left-sided low back pain with right-sided sciatica Take 1 tablet by mouth three times daily. 90 tablet 0 01/12/2023 02/11/2023 Active Start: 12-14-2022 take 800 mg by mouth three times daily Metaxalone Active 800 MG PO THREE TIMES A DAY December 14, 2022 12:00am Comment on above: Take 1 tablet by carlos three times daily. omeprazole 20 mg delayed release oral capsule (6 sources) Proton Pump Inhibitor Start: 10-15-20 take 1 capsule by mouth once daily before breakfast omeprazole (PRILOSEC) 20 mg capsule Take 1 capsule by mouth daily before breakfast. 1/2 hr before meal. 30 capsule 11 10/15/2024 Active 10 actuat tiotropium 0.0025 mg/actuat inhalation spray (20 sources) Anticholinergic Start: 06-27-20 End: 09-03-20 24 take 2 puff(s) by inhalation once daily, then take 2 puff(s) by inhalation once daily tiotropium bromide (SPIRIVA RESPIMAT) 2.5 mcg/actuation inhaler Indications: Chronic obstructive pulmonary disease, unspecified COPD type (HCC) Inhale 2 Puffs as instructed once daily. Inhale two puffs once daily. 1 Each 5 09/03/2024 Active Start: 07-13-2017 take 1 dose by inhal ation once daily Spiriva Dose : 18 mcg =, Inhalation, qDay Start Date: 07/13/17 Status: Ordered Comment on above: Inhale 2 Puffs as in structed once daily. Inhale two puffs once daily. Tiotropium Gowen (Spiriva With Handihaler) 18 mcg capsule, w/inhalation device (2 sources) Start: 3 take 1 capsule by inhalation once daily Tiotropium Gowen (Spiriva With Handihaler) 18 mcg capsule, w/inhalation device Active 1 CAP INHALATION DAILY July 06, 2023 11:00pm puncture 1 cap using device; one dose = 2 inhalations Start: 07-07-2023 take 1 capsule by in halation once daily Tiotropium Gowen (Spiriva With Handihaler) 18 mcg capsule, w/inhalation device Active 1 CAP INHALATION DAILY July 07, 2023 12:00am puncture 1 cap using device; one dose = 2 inhalations triamcinolone acetonide 1 mg/ml topical cream (1 source) Corticosteroid Start: 12-15-2022 End: 12-29-2022 triamcinolone acetonide (KENALOG) 0.1 % cream Indications: Rash and nonspecific skin eruption Apply 1 application to affected area three times daily for 14 days. Apply to affected area - external ear for 14 days. May repeat if needed 15 g 1 12/15/2022 12/29/2022 Active Comment on above: Apply 1 application to affected area three times daily for 14 days. Apply to affected area - external ear for 14 days. May repeat if needed Completed/Discontinued Medications Medication Drug Class(es) Dates Sig (Normalized) Sig (Original) albuterol MDI (90 mcg/inh) CFC free inhalation aerosol (2 sources) Start: 01-07-2019 End: 02-06-2019 take 2 puff(s) by inhalation four times daily albuterol MDI (90 mcg/inh) CFC free inhalation aerosol 2 puff(s), Inhalation, QID, TO GO, # 1 EA, 0 Refill(s) Start Date: 01/07/19 Stop Date: 02/06/19 Status: Ordered Start: 07-13-2017 take 2 puff(s) by in halation four times daily as needed for wheezing albuterol MDI (90 mcg/inh) CFC free inhalation aerosol 2 puff(s), Inhalation, QID, PRN as needed for wheezing, 0 Refill(s) Start Date: 07/13/17 Status: Ordered Brompheniramine-Ppa (Dayquil Allergy 12-Hr) 12-75 mg Tablet Extended Release 12 Hr (7 sources) Start: 07-20-2021 End: 07-07-2023 take 1 tablet by mouth twice daily, then take 1 tablet by mouth every twelve hours Brompheniramine-Ppa (Dayquil Allergy 12-Hr) 12-75 mg Tablet Extended Release 12 Hr Discontinued 1 TABLET PO TWICE A DAY July 19, 2021 11:00pm July 07, 2023 6:11pm Start: 07-20-2021 End: 07-07-2023 take 1 tablet by mouth twice daily, then take 1 tablet by mouth every twelve hours Brompheniramine-Ppa (Dayquil Allergy 12-Hr) 12-75 mg Tablet Extended Release 12 Hr Discontinued 1 TABLET PO TWICE A DAY July 20, 2021 12:00am July 07, 2023 7:11pm Start: 07-20-2021 take 1 tablet by carlos th twice daily, then take 1 tablet by mouth every twelve hours Brompheniramine-Ppa (Dayquil Allergy 12-Hr) 12-75 mg Tablet Extended Release 12 Hr Active 1 TABLET PO TWICE A DAY July 19, 2021 11:00pm Start: 07-20-2021 take 1 tablet by carlos th twice daily, then take 1 tablet by mouth every twelve hours Brompheniramine-Ppa (Dayquil Allergy 12-Hr) 12-75 mg Tablet Extended Release 12 Hr Active 1 TABLET PO TWICE A DAY July 20, 2021 12:00am codeine phosphate 2 mg/ml / guaiFENesin 20 mg/ml oral solution (1 source) Opioid Agonist Start: 01-16-2024 End: 01-23-2024 take 5-10 mL by mouth four times daily as needed for cough codeine-guaiFENesin (GUAIFENESIN AC) 10-100 mg/5 mL syrup Indications: Chronic obstructive pulmonary disease with acute exacerbation (HCC) , Sinobronchitis Take 5-10 mL by mouth four times a day as needed for cough for up to 7 days. 118 mL 0 01/16/2024 01/23/2024 Comment on above: Take 5-10 mL by mout h four times a day as needed for cough for up to 7 days. colistin 3 mg/ml / hydrocortisone 10 mg/ml / neomycin 3.3 mg/ml / thonzonium bromide 0.5 mg/ml otic suspension (1 source) Aminoglycoside Antibacterial, Corticosteroid Start: 12-15-2022 End: 12-15-2022 Qxyuhnvz-Gzxvlb-IW-Thon zonium (CORTISPORIN-TC) otic suspension Indications: Acute otitis externa of both ears, unspecified type Use 3 Drops in the ears four times daily. 10 mL 0 12/15/2022 12/15/2022 Discontinued (Availability) Comment on above: Use 3 Drops in the e ars four times daily. doxycycline hyclate 100 mg oral tablet (5 sources) Tetracycline-class Drug Start: 01-16-2024 End: 01-26-2024 take 1 tablet by mouth twice daily doxycycline (VIBRA-TABS) 100 mg tablet Indications: Chronic obstructive pulmonary disease with acute exacerbation (HCC) , Sinobronchitis Take 1 tablet by mouth two times a day for 10 days. 20 tablet 0 01/16/2024 01/26/2024 Start: 04-30-2023 End: 07-07-2023 take 100 mg by mouth twice daily Doxycycline Monohydrate Discontinued 100 MG PO TWICE A DAY April 29, 2023 11:00pm July 07, 2023 6:12pm Start: 01-16-2023 End: 01-26-2023 take 1 tablet by mouth twice daily doxycycline (VIBRA-TABS) 100 mg tablet Indications: Acute infection of left external ear , Acute otitis media, left , Left facial swelling Take 1 tablet by mouth twice daily for 10 days. 20 tablet 0 01/16/2023 01/26/2023 Active Comment on above: Take 1 tablet by carlos th twice daily for 10 days. Take 1 tablet by carlos th two times a day for 10 days. famotidine 20 mg oral tablet (18 sources) Histamine-2 Receptor Antagonist Start: End: take 1 tablet by mouth once daily at bedtime as needed famotidine (PEPCID) 20 mg tablet Indications: Acute left-sided low back pain with right-sided sciatica Take 1 tablet by mouth at bedtime as needed. Take this once daily on the days you take meloxicam 30 tablet 01/12/2023 09/03/2024 Discontinued Start: 07-29-2021 take 1 tablet by carlos th every twenty-four hours as needed famotidine (PEPCID) 20 mg tablet Take 1 tablet by mouth at bedtime as needed. 30 tablet 0 07/29/2021 Active Comment on above: Take 1 tablet by carlos th at bedtime as needed. Take 1 tablet by carlos th at bedtime as needed. Take this once daily on the days you take meloxicam hydroCHLOROthiazide 12.5 mg / lisinopril 10 mg oral tablet (20 sources) Thiazide Diuretic, Angiotensin Converting Enzyme Inhibitor Start: 06-13-20 End: 09-03-20 24 take 10-12.5 mg by mouth once lisinopril-hydroCHL OROthiazide (ZESTORETIC) 10-12.5 mg per tablet Take 1 tablet by mouth once daily. 06/13/2023 09/03/2024 Discontinued Start: 02-04-2021 End: 08-31-2022 take 10-12.5 mg by mouth once in the morning lisinopril-hydroCHLOROthiazide (PRINZIDE,ZESTORETIC) 10-12.5 mg per tablet Indications: Essential hypertension, benign Take 1 tablet by mouth every morning. 90 tablet 3 02/04/2021 05/13/2022 Discontinued Start: 12-17-2020 take 1 tablet by carlos th once daily Lisinopril-Hydrochlorothiazide Active 1 TABLET PO DAILY December 17, 2020 12:00am Start: 02-28-2020 End: 04-07-2020 take 10-12.5 mg by mouth once daily Lisinopril-Hydrochlorothiazide Discontin ued 10 - 12.5 MG PO DAILY February 28, 2020 9:53pm April 07, 2020 12:32pm Start: 01-12-2019 End: 02-28-2020 Lisinopril-Hydrochlorothiazi de Discontinued 1 EACH PO TWICE A DAY 60 January 12, 2019 2:06pm February 28, 2020 9:53pm Start: 01-10-2019 End: 01-12-2019 Lisinopril-Hydrochlorothiazi de Discontinued 1 EACH PO DAILY January 10, 2019 12:00am January 12, 2019 2:06pm Comment on above: Take 1 tablet by carlos th every morning. Take 1 tablet by carlos th once daily. levoFLOXacin 500 mg oral tablet (4 sources) Quinolone Antimicrobial Start: 07-26-20 End: 12-15-19 take 1 tablet by mouth once daily levoFLOXacin (LEVAQUIN) 500 mg tablet Indications: Chronic obstructive pulmonary disease, unspecified COPD type (HCC) Take 1 tablet by mouth once daily. FOR 10 DAYS. 10 tablet 07/26/2021 12/15/2022 Discontinued Comment on above: Take 1 tablet by carlos once daily. FOR 10 DAYS. predniSONE 20 mg oral tablet (20 sources) Start: 09-03-20 End: 10-15-20 predniSONE (DELTASONE) 20 mg tablet Indications: Chronic obstructive pulmonary disease, unspecified COPD type (HCC) , Arthralgia of multiple joints 1 tablet three times a day for 3 days, then 2 times a day for 3 days, the one daily for 3 days. 18 tablet 09/03/2024 10/15/2024 Discontinued Start: 06-17-2024 End: 09-03-2024 predniSONE (DELTASONE) 10 mg tablet Take 4 tabs daily for 3 days, then 2 tabs daily for 3 days, then 1 tab daily for 3 days with food. 21 tablet 06/17/2024 09/03/2024 Discontinued Start: 01-16-2024 End: 01-28-2024 predniSONE (DELTASONE) 10 mg tablet Take 4 tabs daily x 3 days, then 3 tabs x 3 days, 2 tabs x 3 days, then 1 tab x3 days with food. 30 tablet 0 01/16/2024 01/28/2024 Start: 07-07-2023 take 50 mg by mouth once daily Prednisone Active 50 MG PO DAILY July 06, 2023 11:00pm Start: 04-30-2023 End: 07-07-2023 take 40 mg by mouth once daily Prednisone Discontinued 40 MG PO DAILY April 29, 2023 11:00pm July 07, 2023 6:13pm Start: 11-07-2022 take 40 mg by mouth once daily Prednisone Active 40 MG PO DAILY November 07, 2022 12:00am Start: 07-26-2021 End: 12-15-2022 predniSONE (DELTASONE) 10 mg tablet Indications: Chronic obstructive pulmonary disease, unspecified COPD type (HCC) , COVID-19 Take 40 mg x 3 days, 20 mg x 3 days, 10 mg x 3 days. Take with food, once daily. Start taking the day following completion of dexamethasone. 21 tablet 07/26/2021 12/15/2022 Discontinued Comment on above: Take 40 mg x 3 days, 20 mg x 3 days, 10 mg x 3 days. Take with food, once daily. Start taking the day following completion of dexamethasone. Take 4 tabs daily x 3 days, then 3 tabs x 3 days, 2 tabs x 3 days, then 1 tab x3 days with food. Problems Active Problems Problem Classification Problem Date Documented Date Episodic/Chronic Abdominal pain (1 source) Unspecified abdominal pain; Translations: [Unspecified abdominal pain] Onset: 04-05-2024 Episodic Administrative/socia l admission (1 source) Inadequate material resources; Translations: [Transportation insecurity] 10-15-2024 Episodic Calculus of urinary tract (5 sources) Ureteric stone; Translations: [Calculus of ureter] 12-06-2022 Episodic Chronic obstructive pulmonary disease and bronchiectasis (20 sources) Chronic obstructive pulmonary disease, unspecified; Translations: [Pulmonary emphysema] Onset: 08-15-2017 02-04-2021 Chronic Conditions associated with dizziness or vertigo (20 sources) Dizziness; Translations: [Dizziness and giddiness] 03-02-2015 Episodic Disorders of teeth and jaw (20 sources) Periapical abscess; Translations: [Periapical abscess without sinus] 06-18-2020 Episodic Esophageal disorders (20 sources) Gastroesophageal reflux disease; Translations: [Gastro-esophageal reflux disease without esophagitis] Onset: 06-15-2007 07-23-2007 Chronic Essential hypertension (20 sources) Essential (primary) hypertension; Translations: [Hypertensive disorder] Onset: 06-15-2007 Chronic Immunizations and screening for infectious disease (9 sources) Patient encounter status; Translations: [Encounter for immunization] Onset: 10-15-2024 Episodic Nutritional deficiencies (2 sources) Vitamin D deficiency; Translations: [Vitamin D deficiency, unspecified] Onset: 09-03-2024 09-03-2024 Chronic Open wounds of extremities (7 sources) Open wound of finger; Translations: [Unspecified open wound of unspecified finger without damage to nail, initial encounter] 05-21-2022 Episodic Osteoarthritis (20 sources) Unspecified osteoarthritis, unspecified site; Translations: [Osteoarthritis of right knee joint] Onset: 03-22-2012 Resolved: 03-22-2012 09-01-2023 Chronic Other connective tissue disease (2 sources) Presence of left artificial knee joint; Translations: [Presence of left artificial knee joint] Onset: 08-15-2017 Chronic Other connective tissue disease (20 sources) History of total knee arthroplasty; Translations: [Presence of unspecified artificial knee joint] Onset: 03-28-2012 03-28-2012 Chronic Other ear and sense organ disorders (20 sources) Hearing loss; Translations: [Unspecified hearing loss, unspecified ear] Onset: 06-15-2007 06-15-2007 Chronic Other ear and sense organ disorders (1 source) Infection of external ear; Translations: [Other infective otitis externa, left ear] Episodic Other ear and sense organ disorders (1 source) Pain of ear structure; Translations: [Otalgia, left ear] Episodic Other endocrine disorders (1 source) Reactive hypoglycemia; Translations: [Other hypoglycemia] 09-03-2024 Chronic Other endocrine disorders (1 source) Other hypoglycemia; Translations: [Reactive hypoglycemia] Onset: 09-03-2024 Chronic Other lower respiratory disease (1 source) Dyspnea on exertion; Translations: [Shortness of breath] 07-28-2021 Episodic Other nervous system disorders (1 source) Other chronic pain; Translations: [Chronic pain of right knee] Onset: 12-16-2024 Chronic Other non-traumatic joint disorders (8 sources) Pain in right knee; Translations: [Pain in joint, lower leg] Onset: 09-01-2023 09-01-2023 Episodic Other non-traumatic joint disorders (3 sources) Multiple joint pain; Translations: [Pain in unspecified joint] 09-03-2024 Episodic Other non-traumatic joint disorders (1 source) Pain in unspecified joint; Translations: [Arthralgia of multiple joints] Onset: 12-02-2024 Episodic Other nutritional; endocrine; and metabolic disorders (20 sources) Body mass index 40+ - severely obese; Translations: [Morbid (severe) obesity due to excess calories] Onset: 06-15-2007 03-14-2018 Chronic Other nutritional; endocrine; and metabolic disorders (2 sources) Morbid obesity; Translations: [Morbid (severe) obesity due to excess calories] 10-07-2023 Chronic Other nutritional; endocrine; and metabolic disorders (2 sources) Morbid (severe) obesity due to excess calories; Translations: [Obesity, Class III, BMI 40-49.9 (morbid obesity) ([facility])] Onset: 03-14-2018 Chronic Other skin disorders (1 source) Facial swelling ; Translations: [Localized swelling, mass and lump, head] Episodic Other upper respiratory disease (2 sources) Acute bronchospasm; Translations: [Acute bronchospasm] 07-15-2023 Episodic Other upper respiratory infections (1 source) Chronic sinusitis; Translations: [Chronic sinusitis, unspecified] 02-15-2024 Chronic Otitis media and related conditions (8 sources) Perforation of tympanic membrane; Translations: [Unspecified perforation of tympanic membrane, right ear] 11-07-2022 Episodic Residual codes; unclassified (20 sources) Obstructive sleep apnea syndrome; Translations: [Obstructive sleep apnea (adult) (pediatric)] Onset: 06-15-2007 02-04-2021 Chronic Residual codes; unclassified (7 sources) Peripheral edema; Translations: [Edema, unspecified] 12-11-2019 Episodic Screening or history of mental health and substance abuse (4 sources) Personal history of nicotine dependence; Translations: [Patient encounter status] Onset: 08-15-2017 09-03-2024 Episodic Spondylosis; intervertebral disc disorders; other back problems (17 sources) Backache; Translations: [Dorsalgia, unspecified] Onset: 10-15-2024 12-06-2022 Episodic Sprains and strains (17 sources) Strain of supraspinatus muscle; Translations: [Strain of other muscles, fascia and tendons at shoulder and upper arm level, right arm, initial encounter] 12-02-2021 Episodic Substance-related disorders (20 sources) Tobacco user; Translations: [Nicotine dependence, unspecified, uncomplicated] Onset: 06-15-2007 06-15-2007 Chronic Superficial injury; contusion (20 sources) Contusion, hip and thigh; Translations: [Contusion of right hip, initial encounter] 12-18-2020 Episodic Unclassified (1 source) Transportation insecurity; Translations: [Transportation insecurity] Onset: 10-15-2024 Unclassified (1 source) Lumbar pain; Translations: [Lumbar pain] Onset: 06-17-2024 Viral infection (7 sources) Disease caused by 2019-nCoV; Translations: [COVID-19] 11-07-2022 Episodic Past or Other Problems Problem Classification Problem Date Documented Da te Episodic/Chronic Abdominal hernia (20 sources) Umbilical hernia; Translations: [Umbilical hernia without obstruction or gangrene] Onset: 06-15-2007 06-15-2007 Episodic Allergic reactions (4 sources) Allergic contact dermatitis due to plants, except food; Translations: [Allergy status to penicillin] Onset: 08-15-2017 Episodic Asthma (20 sources) Unspecified asthma, uncomplicated; Translations: [Asthma] Onset: 08-15-2017 Resolved: 08-17-2016 04-05-2020 Chronic Nonspecific chest pain (1 source) Chest pain, unspecified; Translations: [Chest pain, unspecified] Onset: 05-04-2023 Episodic Other aftercare (1 source) Encounter for therapeutic drug level monitoring; Translations: [Encounter for therapeutic drug monitoring] Onset: 09-03-2024 Episodic Other lower respiratory disease (1 source) Shortness of breath; Translations: [Shortness of breath] Onset: 07-12-2023 Episodic Other non-traumatic joint disorders (20 sources) Pain in lower limb; Translations: [Pain in unspecified knee] Onset: 04-24-2012 04-24-2012 Episodic Other non-traumatic joint disorders (17 sources) Arthralgia of the pelvic region and thigh; Translations: [Pain in unspecified hip] Onset: 04-24-2012 Resolved: 04-24-2012 04-24-2012 Episodic Other nutritional; endocrine; and metabolic disorders (15 sources) Weight gain; Translations: [Abnormal weight gain] Onset: 02-04-2021 02-04-2021 Episodic Other nutritional; endocrine; and metabolic disorders (12 sources) Weight increased; Translations: [Abnormal weight gain] Onset: 02-04-2021 02-04-2021 Episodic Other screening for suspected conditions (not mental disorders or infectious disease) (1 source) Encounter for screening for malignant neoplasm of prostate; Translations: [Screening for prostate cancer] Onset: 09-03-2024 Episodic Unclassified (4 sources) Family history of ear disorders; Translations: [Family history of ischemic heart disease and other diseases of the circulatory system] Onset: 08-15-2017 Episodic Results Test Name Value Interpretation Reference Range Facility Relevant diagnostic tests/la boratory data Narrativeon 07-23-2025 Fall risk assessment yes [facility] [employer] Work Phone: MEDS REVIEW Done [employer] Work Phone: MEDS REVIEWD Medications reviewed with changes [employer] Work Phone: CNCOon 12-16-2024 CNCO Letter Text Normal [facility] CNOVon 12-16-2024 CNOV Office Visit (INTMWS ) -- NANCIE RUANO ([id number]) 1965 M Date Time Provider Department 12/16/24 1:40 PM PURA LEON INTMWS During your visit today, we recorded the following information about you: Pulse Respiration Blood pressure Weight 99/minute 16/minute 115/72 159 kg Pura Leon, ART MANAGER.MAINTENANCE PERSON 12/16/2024 2:22 PM Signed SUBJECTIVE: Spirometry Never done Pneumococcal Vaccine: 50+(1 of 2 - PCV) Never done Colorectal Cancer Screening Never done HPI Nancie Ruano is a 58 year old male. PMH signficant for ACTIVE PROBLEM LIST Unspecified Hearing Loss Obesity, Class Iii, Bmi 40-49.9 (Morbid Obesity) (Hcc) Tobacco Use Disorder [place] On Cpap Esophageal Reflux Umbilical Hernia Without Mention of Obstruction Or Gangrene Other Ventral Hernia Without Mention of Obstruction Or Gangrene Essential Hypertension, Benign S/P Total Knee Replacement Pain in Joint, Lower Leg Weight Gain Chronic Obstructive Pulmonary Disease (Hcc) Presents for routine visit. Since last seen he had an orthopedic appointment. Discussed corticosteroid injection in the right knee which he declined. Weight loss was endorsed. He googled what calorie amount he should eat and came up with 2500 to 3000/day. His weight is increased since he was last seen. He canceled pulmonary function testing which was scheduled. He notes neck and knee pain are somewhat improved with the current treatment. He has a history of left total knee replacement. Does note continued right knee pain worse with walking any distance. Does have some swelling at the knee. Notes decreased range of motion at the knee. Notes celebrex did help when he took two a day. He notes currently without heartburn or RUQ discomfort. Current PPI use. No report of abdominal pain nausea vomiting diarrhea constipation BRBPR black or tarry stool.Notes stopping soda seemed to help a lot. History of FREDERICK not currently using CPAP. Reports trouble with wearing this in the past so he returned it. Thinks he had sleep study at [facility] onsite. He reports transportation insecurity, has an appointment to discuss Social Security disability and not sure how we will get the area. Does not know if his health insurance covers transportation to appointments. He notes chronically short of breath on exertion. No recent PFT. Appears last check 2019 [facility] with ambulatory oximetry. Review of Systems Constitutional: Negative. Respiratory: Positive for shortness of breath (stable SOBOE). Gastrointestinal: Negative. Musculoskeletal: Positive for arthralgias. Objective BP 115/72 Pulse 99 Resp 16 Wt (!) 159 kg (350 lb 8.5 oz) BMI 51.76 kg/m? Physical Exam Vitals and nursing note reviewed. Constitutional: Appearance: Normal appearance. HENT: Head: Normocephalic and atraumatic. Eyes: Conjunctiva/sclera: Conjunctivae normal. Neck: Thyroid: No thyromegaly. Vascular: Normal carotid pulses. No JVD. Cardiovascular: Rate and Rhythm: Normal rate and regular rhythm. Pulmonary: Effort: Pulmonary effort is normal. Breath sounds: Normal breath sounds. Abdominal: General: Bowel sounds are normal. Palpations: Abdomen is soft. Musculoskeletal: Cervical back: Muscular tenderness present. Decreased range of motion. Right knee: Swelling present. Decreased range of motion. Tenderness present. Skin: General: Skin is warm and dry. Neurological: General: No focal deficit present. Mental Status: He is alert and oriented to person, place, and time. ALLERGIES Allergen Reactions Hctz [Lisinopril-Hy* Other: See Comments dizziness Penicillins Other: See Comments passed Out Loss of consciousness Medication hydroCHLOROthiazide 25 mg tablet Take 1 tablet by mouth once daily. omeprazole (PRILOSEC) 20 mg capsule Take 1 capsule by mouth daily before breakfast. 1/2 hr before meal. cyclobenzaprine (FLEXERIL) 10 mg tablet Take 1 tablet by mouth at bedtime as needed for muscle spasm or pain. Cholecalciferol, Vitamin D3, 50 mcg (2,000 unit) cap Take 1 capsule by mouth once daily. albuterol HFA (VENTOLIN HFA) 90 mcg/actuation inhaler Inhale 2 Puffs as instructed every 4 hours as needed for wheezing/shortness of breath. Prescribed by pulmonlogist tiotropium bromide (SPIRIVA RESPIMAT) 2.5 mcg/actuation inhaler Inhale 2 Puffs as instructed once daily. Inhale two puffs once daily. albuterol (PROVENTIL) 2.5 mg /3 mL (0.083 %) nebulizer solution Use 3 mL via nebulizer every 4 hours as needed for wheezing/shortness of breath. Use over 5-15minutes. mometasone-formoterol (DULERA) 50-5 mcg/actuation HFA aerosol inhaler Inhale 2 Puffs as instructed two times a day. lisinopril (ZESTRIL) 5 mg tablet Take 1 tablet by mouth once daily. celecoxib 400 mg capsule Take 1 capsule by mouth once daily. Take with a meal. For neck and knee pain PAST MEDICAL HISTORY Diagnosis Date (more content not included)... Normal [facility] CNOVon 12-02-2024 CNOV Office Visit (OSMEL ) -- NANCIE RUANO ([id number]) 1965 M Date Time Provider Department 12/02/24 1:00 PM GRISELDA MADISON During your visit today, we recorded the following information about you: Mavis Gomez MA 12/02/2024 12:22 PM Signed Patient presents with: Right Knee - New, Knee Pain Referred by Mya Andrea AMB ROOMING INTAKE FLOWSHEET DATA Pain Pain Level: 6 Pain Location: Knee-Right Description: Sharp Duration Amount of Time: 1 Duration Units: Years Frequency: Continuous Intervention/Comfort measure: Medication Patient states he is having pain in his knee cap area. He is having difficulty going up and down steps. He uses a cane to ambulate. Patient was given prednisone in August for his knee pain and help some. Patient is currently not working and has filed for SSI. Taking Tylenol for the pain and helps take the edge off. X-rays done on 09/03/24. Griselda Madison PA-C 12/02/2024 12:22 PM Signed Griselda Madison PA-C Department of Orthopaedics Orthopaedics [address] [facility] [address] Dept: [phone] Dept December 02, 2024 CHIEF COMPLAINT: New and Knee Pain of the Right Knee and Referred by Mya Andrea Mr. Nancie Ruano is a 58 year old male who presents with pain in his right knee which has been getting progressively worse over the past several years. Pain is a 6 out of 10 aching that is worse with most activities. The patient has difficulty walking even short distances secondary to his knee pain and also some issues with breathing. He also has a hard time finding a comfortable position for rest, extending the knee while seated does help relieve some of his discomfort. He ambulates with the assistance of a cane. He takes intermittent ibuprofen and Tylenol which is only somewhat helpful. The patient has COPD, he reports to me that he gets short of breath even walking short distances around his home. He is not on oxygen but uses multiple inhalers. He has not worked outside the home in several years, he reports that he is in the process of trying to file for disability. He is status post left total knee arthroplasty in the with Dr. Jeovany Collins. ASSESSMENT: M17.11 Primary osteoarthritis of right knee PLAN: Offer the patient a corticosteroid injection today for the right knee osteoarthritis, he declines. We did discuss that his weight is an issue that will likely lead to worsening osteoarthritis of the right knee and we will also keep him from pursuing total joint arthroplasty on the right in the future. Since he is quite limited in his functional capacity because of his COPD we discussed potentially seeing a dietitian to work on diet to help with weight control. I am happy to see him back at any time that he would like to try corticosteroid injection. Will continue to monitor patient for Primary osteoarthritis of right knee, patient to schedule visit as per follow up discussed. Mr. Nancie Ruano was advised as to contrast therapies and/or to take analgesics/anti-inflammato frank as needed and all contraindications were reviewed. OBJECTIVE: Mr. Nancie Ruano is a pleasant 58 year old in no apparent distress. Gen:There were no vitals taken for this visit. nl development, obese, no deformities ENT: Normocephalic, normal hearing, moist mucosa CV: Pulses:DP/PT= 2+ and symmetric, capillary refill < 2 secs, no peripheral edema/varicosities Skin: no rash, bruising or lesions. Good turgor. Psych: cooperative and appropriate, alert and oriented x 3, good mood and affect. Musculoskeletal: KNEE EXAM: Right: Alignment: Neutral Range of motion is 5 degrees in extension and 100 degrees of flexion. Extension Lag: < 10 degrees Pain with ROM: Yes Effusion: Slight Tender to the palpation of Medial femoral condyle and Medial joint line Pain with patellar compression: No Stability: Anterior/Posterior stable and Varus/Valgus stable Hip Exam: flexion to 100+ degrees, full extension, internal/external rotation adequate, and no pain with log roll Neurovascular Status: Sensation Intact, Moves foot and ankle up AND down, and 2+ dorsalis pedis Imaging: IMPRESSION: Significant osteoarthrosis, showing interval progression Bone Char Kiln Operator: [facility] Transcribe Date/Time: Sep 07 2024 4:03P Dictated by : NERISSA MILLER MD This examination was interpreted and the report reviewed and electronically signed by: NERISSA MILLER MD on Sep 07 2024 4:04PM EST Results-Findings * * *Final Report* * * DATE OF EXAM: Sep 03 2024 4:25PM WOX [id number] - XR KNEE 2V AP/LAT RT / PROCEDURE REASON: Arthralgia of multiple joints * * * * Physician Interpretation * * * * PROCEDURE: Right knee INDICATION: Arthralgia of multiple joints .Chronic right knee TECHNIQUE: XR KNEE 2V AP/LAT RT COMPARISON: 09/01/2023 FINDINGS: (more content not included)... Normal [facility] XR SHOULDER MINIMUM 2 VIEWS LEFTon 10-27-2024 XR SHOULDER MINIMUM 2 VIEWS LEFT ORIGINAL EXAMINATION: TWO XRAY VIEWS OF THE LEFT SHOULDER 10/26/2024 9:58 am COMPARISON: Left shoulder x-ray on 09/11/2018 HISTORY: ORDERING SYSTEM PROVIDED HISTORY: Reason for Exam: pain FINDINGS: Glenohumeral joint alignment is normal and the joint space is maintained. Left humeral head and neck have a normal appearance. The left acromioclavicular joint alignment is normal. There is mild degenerative spurring at the distal end of the clavicle. No fracture of left clavicle or scapula is present. There are no periarticular calcifications. The adjacent left ribs are intact. IMPRESSION: Mild left acromioclavicular arthropathy. Interpreted by: Manolo Dhillon MD Preliminary Report By: Manolo Dhillon MD Electronically signed By Manolo Dhillon MD Dictated Date: 10/27/2024 2:39:52 AM Prelim Date: 10/27/2024 2:41:30 AM Sign Date: 10/27/2024 2:41:30 AM [facility]MARISEL[facility] -- NANCIE RUANO ([id number]) 1965 M Date Time Provider Department 10/17/24 SOCRATES HATFIELD During your visit today, we recorded the following information about you: Socrates Hatfield MSW 10/17/2024 10:28 AM Signed Alessia called and left message for return call to discuss transportation. Alessia reviewed [facility] Medicaid and transportation benefits to medical appts were noted on website. Socrates Hatfield MSW 10/21/2024 10:54 AM Signed Alessia left 2nd message for call to be returned to discuss transportation resources. Allergies As of Date: 10/17/2024 Noted Allergy Reaction HCTZ (LISINOPRIL-HYDROCHLOROTHI [place]*12/15/2022 14 - Other: See Comments Comments: dizziness PENICILLINS 06/15/2007 14 - Other: See Comments Comments: passed Out Loss of consciousness Date Reviewed: 10/15/2024 Reviewed by: Pura Leon APRN.MAINTENANCE PERSON - Fully Assessed Prescriptions as of 10/21/2024 - omeprazole (PRILOSEC) 20 mg capsule Take 1 capsule by mouth daily before breakfast. 1/2 hr before meal. - cyclobenzaprine (FLEXERIL) 10 mg tablet Take 1 tablet by mouth at bedtime as needed for muscle spasm or pain. - celecoxib (CELEBREX) 200 mg capsule Take 1 capsule by mouth once daily. Take with a meal. For neck and knee pain - Cholecalciferol, Vitamin D3, 50 mcg (2,000 unit) cap Take 1 capsule by mouth once daily. - albuterol HFA (VENTOLIN HFA) 90 mcg/actuation inhaler Inhale 2 Puffs as instructed every 4 hours as needed for wheezing/shortness of breath. Prescribed by pulmonlogist - tiotropium bromide (SPIRIVA RESPIMAT) 2.5 mcg/actuation inhaler Inhale 2 Puffs as instructed once daily. Inhale two puffs once daily. - albuterol (PROVENTIL) 2.5 mg /3 mL (0.083 %) nebulizer solution Use 3 mL via nebulizer every 4 hours as needed for wheezing/shortness of breath. Use over 5-15minutes. - mometasone-formoterol (DULERA) 50-5 mcg/actuation HFA aerosol inhaler Inhale 2 Puffs as instructed two times a day. - lisinopril (ZESTRIL) 5 mg tablet Take 1 tablet by mouth once daily. - hydroCHLOROthiazide 25 mg tablet Take 1 tablet by mouth once daily. Problem List As Of Date 10/17/2024 Noted Resolved HEARING LOSS NOS [H91.90] 06/15/2007 Obesity, Class III, BMI 40-49.9 (morbid obesity*06/15/2007 TOBACCO USE DISORDER [F17.200] 06/15/2007 FREDERICK on CPAP [G47.33] 06/15/2007 ESOPHAGEAL REFLUX [K21.9] 06/15/2007 UMBILICAL HERNIA [K42.9] 06/15/2007 VENTRAL HERNIA NEC [K43.9] 06/15/2007 BENIGN HYPERTENSION [I10] 06/15/2007 Osteoarthrosis, unspecified whether generalized*03/22/2012 03/22/2012 S/P total knee replacement [Z96.659] 03/28/2012 Pain in joint, pelvic region and thigh [M25.559]04/24/2012 04/24/2012 Pain in joint, lower leg [M25.569] 04/24/2012 asthma [J45.902] 08/17/2016 Weight gain [R63.5] 02/04/2021 Chronic obstructive pulmonary disease (HCC) [J4*02/04/2021 Encounter Status:Closed by SOCRATES HATFIELD on 10/21/24 [facility] CNOVon 10-15-2024 CNOV Office Visit (INTMWS ) -- NANCIE RUANO ([id number]) 1965 M Date Time Provider Department 10/15/24 3:00 PM PURA LEON INTMWS During your visit today, we recorded the following information about you: Pulse Respiration Blood pressure Weight 99/minute 16/minute 122/71 158.2 kg Pura Leon APRN.MAINTENANCE PERSON 10/15/2024 4:09 PM Signed SUBJECTIVE: Pneumococcal Vaccine(1 of 2 - PCV) Never done Spirometry Never done DTaP,Tdap,Td Vaccine(1 - Tdap) Never done Colorectal Cancer Screening Never done Shingrix Vaccine(1 of 2) Never done BP Controlled (<130/80) due on 01/20/2024 Covid-19 Vaccine() Never done HPI Nancie Rogelber is a 58 year old male. PMH signficant for ACTIVE PROBLEM LIST Unspecified Hearing Loss Obesity, Class Iii, Bmi 40-49.9 (Morbid Obesity) (Hcc) Tobacco Use Disorder [place] On Cpap Esophageal Reflux Umbilical Hernia Without Mention of Obstruction Or Gangrene Other Ventral Hernia Without Mention of Obstruction Or Gangrene Essential Hypertension, Benign S/P Total Knee Replacement Pain in Joint, Lower Leg Weight Gain Chronic Obstructive Pulmonary Disease (Hcc) He notes neck and knee pain are somewhat improved with the current treatment. He has a history of left total knee replacement. Notes some muscle relaxer and prednisone were helpful. Does note continued left knee pain worse with walking any distance. Does have some swelling at the knee. Notes decreased range of motion at the knee. He notes currently with heartburn, RUQ discomfort. No current PPI use. No report of abdominal pain nausea vomiting diarrhea constipation BRBPR black or tarry stool. History of FREDERICK not currently using CPAP. Reports trouble with wearing this in the past so he returned it. Thinks he had sleep study at [facility] onsite. He reports transportation insecurity, has an appointment to discuss Social Security disability and not sure how we will get the area. Does not know if his health insurance covers transportation to appointments. He notes chronically short of breath on exertion. No recent PFT. Appears [facility] [facility] with ambulatory oximetry. Review of Systems Objective BP 122/71 Pulse 99 Resp 16 Wt (!) 158.2 kg (348 lb 12.3 oz) SpO2 94% BMI 51.50 kg/m? Physical Exam Vitals and nursing note reviewed. Constitutional: Appearance: Normal appearance. HENT: Head: Normocephalic and atraumatic. Eyes: Conjunctiva/sclera: Conjunctivae normal. Neck: Thyroid: No thyromegaly. Vascular: Normal carotid pulses. No JVD. Cardiovascular: Rate and Rhythm: Normal rate and regular rhythm. Pulmonary: Effort: Pulmonary effort is normal. Breath sounds: Normal breath sounds. Abdominal: General: Bowel sounds are normal. Palpations: Abdomen is soft. Musculoskeletal: Cervical back: Muscular tenderness present. Decreased range of motion. Right knee: Swelling present. Decreased range of motion. Tenderness present. Skin: General: Skin is warm and dry. Neurological: General: No focal deficit present. Mental Status: He is alert and oriented to person, place, and time. ALLERGIES Allergen Reactions Hctz [Lisinopril-Hy* Other: See Comments dizziness Penicillins Other: See Comments passed Out Loss of consciousness Medication Cholecalciferol, Vitamin D3, 50 mcg (2,000 unit) cap Take 1 capsule by mouth once daily. albuterol HFA (VENTOLIN HFA) 90 mcg/actuation inhaler Inhale 2 Puffs as instructed every 4 hours as needed for wheezing/shortness of breath. Prescribed by pulmonlogist tiotropium bromide (SPIRIVA RESPIMAT) 2.5 mcg/actuation inhaler Inhale 2 Puffs as instructed once daily. Inhale two puffs once daily. albuterol (PROVENTIL) 2.5 mg /3 mL (0.083 %) nebulizer solution Use 3 mL via nebulizer every 4 hours as needed for wheezing/shortness of breath. Use over 5-15minutes. mometasone-formoterol (DULERA) 50-5 mcg/actuation HFA aerosol inhaler Inhale 2 Puffs as instructed two times a day. lisinopril (ZESTRIL) 5 mg tablet Take 1 tablet by mouth once daily. hydroCHLOROthiazide 25 mg tablet Take 1 tablet by mouth once daily. predniSONE (DELTASONE) 20 mg tablet 1 tablet three times a day for 3 days, then 2 times a day for 3 days, the one daily for 3 days. (Patient not taking: Reported on 10/15/2024) PAST MEDICAL HISTORY Diagnosis Date asthma Esophageal reflux hearing loss left ear deafness Hypertension Social History Tobacco Use Smoking status: Former Current packs/day: 0.00 Average packs/day: 2.0 packs/day for 25.0 years (50.0 ttl pk-yrs) Types: Cigarettes Start date: 11/13/1969 Quit date: 11/13/1994 Years since quittin.9 Smokeless tobacco: Never Tobacco comments: quit 25 years ago Substance Use Topics Alcohol use: Yes Comment: occasional beer Drug use: No Latest Ref Rn 09/03/2024 WBC 3.70 - 11.00 k/uL 8.25 RBC 4 (more content not included)... Normal [facility] 09-09-2024 [facility]IA AN Telephone (INTMWS) -- NANCIE RUANO ([id number]) 1965 M Date Time Provider Department 09/09/24 MYA ANDREA During your visit today, we recorded the following information about you: Mya Andrea APRN.VOLLEYBALL REFEREE 09/10/2024 10:03 AM Addendum Xray of the right knee for patient shows severe arthritis, he needs to follow up with ortho to discuss next steps. Consult placed, please help with scheduling. (Shoulder and neck xrays still pending). Addendum: September 10, 2024 Other xrays are back. Should has mild arthritis and the neck shows severe disc narrowing in the lower portion of the neck. Would still advise he see ortho and can refer to spine medicine if needed for the neck. Mya Andrea CNP Allergies As of Date: 09/09/2024 Noted Allergy Reaction HCTZ (LISINOPRIL-HYDROCHLOROTHI [place]*12/15/2022 14 - Other: See Comments Comments: dizziness PENICILLINS 06/15/2007 14 - Other: See Comments Comments: passed Out Loss of consciousness Date Reviewed: 09/03/2024 Reviewed by: Mya Andrea APRN.CNP - Fully Assessed Reason for Visit: Results [95] Primary Visit Diagnosis:Arthralgia of multiple joints [M25.50] Other Visit Diagnosis:Primary osteoarthritis of right knee [M17.11] Order(s):CONSULT TO ORTHOPAEDICS [9026] Order #: [id number]: 1 FUTURE Prescriptions as of 09/10/2024 - Cholecalciferol, Vitamin D3, 50 mcg (2,000 unit) cap Take 1 capsule by mouth once daily. - albuterol HFA (VENTOLIN HFA) 90 mcg/actuation inhaler Inhale 2 Puffs as instructed every 4 hours as needed for wheezing/shortness of breath. Prescribed by pulmonlogist - tiotropium bromide (SPIRIVA RESPIMAT) 2.5 mcg/actuation inhaler Inhale 2 Puffs as instructed once daily. Inhale two puffs once daily. - albuterol (PROVENTIL) 2.5 mg /3 mL (0.083 %) nebulizer solution Use 3 mL via nebulizer every 4 hours as needed for wheezing/shortness of breath. Use over 5-15minutes. - mometasone-formoterol (DULERA) 50-5 mcg/actuation HFA aerosol inhaler Inhale 2 Puffs as instructed two times a day. - predniSONE (DELTASONE) 20 mg tablet 1 tablet three times a day for 3 days, then 2 times a day for 3 days, the one daily for 3 days. - lisinopril (ZESTRIL) 5 mg tablet Take 1 tablet by mouth once daily. - hydroCHLOROthiazide 25 mg tablet Take 1 tablet by mouth once daily. Problem List As Of Date 09/09/2024 Noted Resolved HEARING LOSS NOS [H91.90] 06/15/2007 Obesity, Class III, BMI 40-49.9 (morbid obesity*06/15/2007 TOBACCO USE DISORDER [F17.200] 06/15/2007 FREDERICK on CPAP [G47.33] 06/15/2007 ESOPHAGEAL REFLUX [K21.9] 06/15/2007 UMBILICAL HERNIA [K42.9] 06/15/2007 VENTRAL HERNIA NEC [K43.9] 06/15/2007 BENIGN HYPERTENSION [I10] 06/15/2007 Osteoarthrosis, unspecified whether generalized*03/22/2012 03/22/2012 S/P total knee replacement [Z96.659] 03/28/2012 Pain in joint, pelvic region and thigh [M25.559]04/24/2012 04/24/2012 Pain in joint, lower leg [M25.569] 04/24/2012 asthma [J45.902] 08/17/2016 Weight gain [R63.5] 02/04/2021 Chronic obstructive pulmonary disease (HCC) [J4*02/04/2021 Encounter Status:Closed by MYA ANDREA on 09/09/24 [facility] NANCI[facility] RU[facility] ([id number]) 1965 M Date Time Provider Department 09/04/24 MYA ANDREA INTWS During your visit today, we recorded the following information about you: Mya Andrea APRN.VOLLEYBALL REFEREE 09/04/2024 4:13 PM Signed Please let Nancie know xrays are still in process but labs are back. The one inflammation number shows inflammation is present. Vitamin d is low. I sent in vitamin d for him to start taking. Otherwise labs are stable and without issues. The prostate screening number was normal. Gifty Cuello LPN 09/04/2024 4:20 PM Signed LEFT MESSAGE FOR PATIENT TO CALL OFFICE. Allergies As of Date: 09/04/2024 Noted Allergy Reaction HCTZ (LISINOPRIL-HYDROCHLOROTHI [place]*12/15/2022 14 - Other: See Comments Comments: dizziness PENICILLINS 06/15/2007 14 - Other: See Comments Comments: passed Out Loss of consciousness Date Reviewed: 09/03/2024 Reviewed by: Mya Andrea APRN.VOLLEYBALL REFEREE - Fully Assessed Reason for Visit: Results [95] Order(s):Cholecalciferol, Vitamin D3, 50 mcg (2,000 unit) capTake 1 capsule by mouth once daily.Disp: 90 capsuleRfl: 1 Prescriptions as of 09/05/2024 - Cholecalciferol, Vitamin D3, 50 mcg (2,000 unit) cap Take 1 capsule by mouth once daily. - albuterol HFA (VENTOLIN HFA) 90 mcg/actuation inhaler Inhale 2 Puffs as instructed every 4 hours as needed for wheezing/shortness of breath. Prescribed by pulmonlogist - tiotropium bromide (SPIRIVA RESPIMAT) 2.5 mcg/actuation inhaler Inhale 2 Puffs as instructed once daily. Inhale two puffs once daily. - albuterol (PROVENTIL) 2.5 mg /3 mL (0.083 %) nebulizer solution Use 3 mL via nebulizer every 4 hours as needed for wheezing/shortness of breath. Use over 5-15minutes. - mometasone-formoterol (DULERA) 50-5 mcg/actuation HFA aerosol inhaler Inhale 2 Puffs as instructed two times a day. - predniSONE (DELTASONE) 20 mg tablet 1 tablet three times a day for 3 days, then 2 times a day for 3 days, the one daily for 3 days. - lisinopril (ZESTRIL) 5 mg tablet Take 1 tablet by mouth once daily. - hydroCHLOROthiazide 25 mg tablet Take 1 tablet by mouth once daily. Problem List As Of Date 09/04/2024 Noted Resolved HEARING LOSS NOS [H91.90] 06/15/2007 Obesity, Class III, BMI 40-49.9 (morbid obesity*06/15/2007 TOBACCO USE DISORDER [F17.200] 06/15/2007 FREDERICK on CPAP [G47.33] 06/15/2007 ESOPHAGEAL REFLUX [K21.9] 06/15/2007 UMBILICAL HERNIA [K42.9] 06/15/2007 VENTRAL HERNIA NEC [K43.9] 06/15/2007 BENIGN HYPERTENSION [I10] 06/15/2007 Osteoarthrosis, unspecified whether generalized*03/22/2012 03/22/2012 S/P total knee replacement [Z96.659] 03/28/2012 Pain in joint, pelvic region and thigh [M25.559]04/24/2012 04/24/2012 Pain in joint, lower leg [M25.569] 04/24/2012 asthma [J45.902] 08/17/2016 Weight gain [R63.5] 02/04/2021 Chronic obstructive pulmonary disease (HCC) [J4*02/04/2021 Prescriptions ordered this encounter Disp Refills Start End CHOLECALCIFEROL (VITAMIN D3) 50 MCG * 90 c* 1 09/04/2024 Route: ORAL Sig: Take 1 capsule by mouth once daily. Encounter Status:Closed by MYA ANDREA on 09/05/24 Normal [facility] 25(OH)D3 [facility] 2023 25-hydroxyvitamin D3 [Mass/Vol] 20.0 ng/mL Low 31.0-80.0 [facility] Comment on above: Order Comment: Speci men Type: BLOOD SPECIMENOrdering Facility: [facility] Address: [address] [place] [address] Result Comment: Clas sification of 25 [place] Vitamin D status: Deficiency/Insufficiency: < or = 30 ng/ml. Sufficiency/Optimal Levels: 31-80 ng/mL Toxicity: > 100 ng/mL. Test performed by chemiluminescent immunoassay. Performed By: #### 1 989-3 ####[facility] LABCLIA [id number] [facility] [id number] [address] [place] A1AT SerPl-mCncon 09-03-2024 Alpha 1 antitrypsin [Mass/Vol] 155 mg/dL Normal 90-200 [facility] Comment on above: Order Comment: Speci men Type: BLOOD SPECIMENOrdering Facility: [facility] Address: [address] [place] [address] Performed By: #### 3 016-3, 1825-9, 61413-2, 1988- ####[facility] LABIA [id number] [place] [address] [place] RAGHAVENDRA BY IFA WITH REFLEXon Nuclear Ab Ql (S) Negative Normal Negative [facility] Comment on above: Order Comment: Speci men Type: BLOOD SPECIMENOrdering Facility: [facility] Address: [address] [place] [address] Result Comment: Anti -nuclear antibody test is used as an aid in diagnosis of systemic autoimmune diseases. Where positive and clinically warranted, follow-up using disease-specific testing is recommended. Low positive titers are not uncommon with advanced age, certain chronic infections, and malignancies among others. Test methodology: Indirect fluorescence immunoassay (IFA) using HEp-2 cells. Performed By: #### A NAIFR ####[facility] LABIA [id number] [place] [address] [place] CBC W Auto Differential pane l (Bld)on 09-03-2024 Basophils (Bld) [#/Vol] 0.05 10*3/uL Normal <0.11 [facility] Comment on above: Order Comment: Speci men Type: BLOOD SPECIMENOrdering Facility: [facility] Address: [address] [place] [address] Performed By: #### 4 537-7, 79746-3 ####[facility] LABIA [id number] [place] [address] [place] Basophils/100 WBC (Bld) 0.6 % Normal [facility] Comment on above: Order Comment: Speci men Type: BLOOD SPECIMENOrdering Facility: [facility] Address: [address] [place] [address] Performed By: #### 4 537-7, 19643-1 ####[facility] LABCLIA [id number] [place] [address] [place] Differential cell count method Nom (Bld) Auto Normal [facility] Comment on above: Order Comment: Speci men Type: BLOOD SPECIMENOrdering Facility: [facility] Address: [address] [place] [address] Performed By: #### 4 537-7, 60980-3 ####[facility] LABCLIA [id number] [place] [address] [place] Eosinophils (Bld) [#/Vol] 0.46 10*3/uL High <0.46 [facility] Comment on above: Order Comment: Speci men Type: BLOOD SPECIMENOrdering Facility: [facility] Address: [address] [place] [address] Performed By: #### 4 537-7, 26340-6 ####[facility] LABIA [id number] [place] [address] [place] Eosinophils/100 WBC (Bld) 5.6 % Normal [facility] Comment on above: Order Comment: Speci men Type: BLOOD SPECIMENOrdering Facility: [facility] Address: [address] [place] [address] Performed By: #### 4 537-7, 71211-5 ####[facility] LABCLIA [id number] [place] [address] [place] Erythrocyte distribution width (RBC) [Ratio] 13.0 % Normal 11.5-15.0 [facility] Comment on above: Order Comment: Speci men Type: BLOOD SPECIMENOrdering Facility: [facility] Address: [address] [place] [address] Performed By: #### 4 537-7, 29160-8 ####[facility] LABCLIA [id number] [place] [id number] [place] Hematocrit (Bld) [Volume fraction] 43.8 % Normal 39.0-51.0 [facility] Comment on above: Order Comment: Speci men Type: BLOOD SPECIMENOrdering Facility: [facility] Address: [address] [place] [address] Performed By: #### 4 537-7, 11675-0 ####[facility] LABCLIA [id number] [place] [address] [place] Hemoglobin (Bld) [Mass/Vol] 14.8 g/dL Normal 13.0-17.0 [facility] Comment on above: Order Comment: Speci men Type: BLOOD SPECIMENOrdering Facility: [facility] Address: [address] [place] [address] Performed By: #### 4 537-7, 74779-3 ####[facility] LABCLIA [id number] [place] [address] [place] Immature granulocytes (Bld) [#/Vol] 0.07 10*3/uL Normal <0.10 [facility] Comment on above: Order Comment: Speci men Type: BLOOD SPECIMENOrdering Facility: [facility] Address: [address] [place] [address] Performed By: #### 4 537-7, 29970-5 ####[facility] LABCLIA [id number] [place] [address] [place] Immature granulocytes/100 WBC (Bld) 0.8 % Normal [facility] Comment on above: Order Comment: Speci men Type: BLOOD SPECIMENOrdering Facility: [facility] Address: [address] [place] [address] Performed By: #### 4 537-7, 54799-2 ####[facility] LABCLIA [id number] [place] [address] [place] Lymphocytes (Bld) [#/Vol] 2.42 10*3/uL Normal 1.00-4.00 [facility] Comment on above: Order Comment: Speci men Type: BLOOD SPECIMENOrdering Facility: [facility] Address: [address] [place] [address] Performed By: #### 4 537-7, 95564-9 ####[facility] LABCLIA [id number] [place] [address] [place] Lymphocytes/100 WBC (Bld) 29.3 % Normal [facility] Comment on above: Order Comment: Speci men Type: BLOOD SPECIMENOrdering Facility: [facility] Address: [address] [place] [address] Performed By: #### 4 537-7, 44184-3 ####[facility] LABIA [id number] [place] [address] [place] MCH (RBC) [Entitic mass] 31.3 pg Normal 26.0-34.0 [facility] Comment on above: Order Comment: Speci men Type: BLOOD SPECIMENOrdering Facility: [facility] Address: [address] [place] [address] Performed By: #### 4 537-7, 60439-1 ####[facility] LABIA [id number] [place] [address] [place] MCHC (RBC) [Mass/Vol] 33.8 g/dL Normal 30.5-36.0 [facility] Comment on above: Order Comment: Speci men Type: BLOOD SPECIMENOrdering Facility: [facility] Address: [address] [place] [address] Performed By: #### 4 537-7, 09912-4 ####[facility] LABIA [id number] [place] [address] [place] MCV (RBC) [Entitic vol] 92.6 fL Normal 80.0-100.0 [facility] Comment on above: Order Comment: Speci men Type: BLOOD SPECIMENOrdering Facility: [facility] Address: [address] [place] [address] Performed By: #### 4 537-7, 92351-1 ####[facility] LABCLIA [id number] [place] [address] [place] Monocytes (Bld) [#/Vol] 0.90 10*3/uL High <0.87 [facility] Comment on above: Order Comment: Speci men Type: BLOOD SPECIMENOrdering Facility: [facility] Address: [address] [place] [address] Performed By: #### 4 537-7, 83855-6 ####[facility] LABIA [id number] [place] [address] [place] Monocytes/100 WBC (Bld) 10.9 % Normal [facility] Comment on above: Order Comment: Speci men Type: BLOOD SPECIMENOrdering Facility: [facility] Address: [address] [place] [address] Performed By: #### 4 537-7, 34286-0 ####[facility] LABIA [id number] [place] [address] [place] Neutrophils (Bld) [#/Vol] 4.35 10*3/uL Normal 1.45-7.50 [facility] Comment on above: Order Comment: Speci men Type: BLOOD SPECIMENOrdering Facility: [facility] Address: [address] [place] [address] Performed By: #### 4 537-7, 74780-2 ####[facility] LABIA [id number] [place] [address] [place] Neutrophils/100 WBC (Bld) 52.8 % Normal [facility] Comment on above: Order Comment: Speci men Type: BLOOD SPECIMENOrdering Facility: [facility] Address: [address] [place] [address] Performed By: #### 4 537-7, 10139-5 ####[facility] LABCLIA [id number] [place] [address] [place] Nucleated RBC (Bld) [#/Vol] 10*3/uL Normal <0.01 [facility] Comment on above: Order Comment: Speci men Type: BLOOD SPECIMENOrdering Facility: [facility] Address: [address] [place] [address] Performed By: #### 4 537-7, 35807-6 ####[facility] LABIA [id number] [place] [address] [place] Nucleated RBC/100 WBC (Bld) [Ratio] 0.0 /100 WBC Normal [facility] Comment on above: Order Comment: Speci men Type: BLOOD SPECIMENOrdering Facility: [facility] Address: [address] [place] [address] Performed By: #### 4 537-7, 48892-8 ####[facility] LABIA [id number] [place] [address] [place] Platelet mean volume (Bld) [Entitic vol] 12.0 fL Normal 9.0-12.7 [facility] Comment on above: Order Comment: Speci men Type: BLOOD SPECIMENOrdering Facility: [facility] Address: [address] [place] [address] Performed By: #### 4 537-7, 83544-0 ####[facility] LABIA [id number] [place] [address] [place] Platelets (Bld) [#/Vol] 229 10*3/uL Normal 150-400 [facility] Comment on above: Order Comment: Speci men Type: BLOOD SPECIMENOrdering Facility: [facility] Address: [address] [place] [address] Performed By: #### 4 537-7, 48063-0 ####[facility] LABIA [id number] [place] [address] [place] RBC (Bld) [#/Vol] 4.73 10*6/uL Normal 4.20-6.00 [facility] Comment on above: Order Comment: Speci men Type: BLOOD SPECIMENOrdering Facility: [facility] Address: [address] [place] [address] Performed By: #### 4 537-7, 78717-1 ####[facility] LABCLIA [id number] [place] [address] [place] WBC (Bld) [#/Vol] 8.25 10*3/uL Normal 3.70-11.00 [facility] Comment on above: Order Comment: Speci men Type: BLOOD SPECIMENOrdering Facility: [facility] Address: [address] [place] [address] Performed By: #### 4 537-7, 42357-7 ####[facility] LABCLIA [id number] [address] [place] CNOVon 09-03-2024 CNOV Office Visit (INTMWS ) -- NANCIE RUANO ([id number]) 1965 M Date Time Provider Department 09/03/24 3:00 PM MYA ANDREA INTMWS During your visit today, we recorded the following information about you: Pulse Respiration Blood pressure Weight 86/minute 20/minute 138/84 156.4 kg Height 1.753 m Mya Andrea APRN.VOLLEYBALL REFEREE 09/03/2024 3:40 PM Signed CHIEF COMPLAINT: Patient presents with: Physical HISTORY: Nancie Ruano is a 58 year old male who presents 09/03/2024 for his Yearly Physical Exam. They are here today for a wellness exam. Is able to complete ADL's with independence. Issues today with left shoulder pain, pain all day, neck stiffness, right knee bothers him too. Knee is worse with walking. Low back is in pain too. Trying a lidocaine cream but wears off after a short time. Prior xray of the lumbar spine showed degenerative changes. Right knee with mild arthritis. Prior knee injection but helped only for a short time. More short of breath with activity. Resolves with rest. Not seeing pulmonary. He is coughing some with this. History of smoking. Laying flat is the worse. Has COPD. Sometimes some wheezing. On Spiriva, not taking Dulera. Other Providers: none Depression Screen Q1: Over the past two weeks, have you felt down, depressed or hopeless? No Q2: Over the past two weeks, have you felt little interest or pleasure in doing things? No Current exercise habits: No regular routine Dietary habits: No specific diet Hearing difficulties: no Safe in current home environment: Yes Tobacco: quit ETOH: no Family History Cancer Colon: no Prostate: yes, father Past Medical History: PAST MEDICAL HISTORY Diagnosis Date asthma Esophageal reflux hearing loss left ear deafness Hypertension Family Medical History: FAMILY HISTORY Problem Relation Age of Onset Asthma Mother Diabetes Father Coronary Artery Disease Maternal Grandmother other (alzhiemers) Paternal Grandmother Social History: Social History Tobacco Use Smoking status: Former Current packs/day: 0.00 Average packs/day: 2.0 packs/day for 25.0 years (50.0 ttl pk-yrs) Types: Cigarettes Start date: 11/13/1969 Quit date: 11/13/1994 Years since quittin.8 Smokeless tobacco: Never Tobacco comments: quit 25 years ago Substance Use Topics Alcohol use: Yes Comment: occasional beer Drug use: No Allergies: ALLERGIES Allergen Reactions Hctz [Lisinopril-Hy* Other: See Comments dizziness Penicillins Other: See Comments passed Out Loss of consciousness Medications: Current Outpatient Medications Medication Sig lisinopril (ZESTRIL) 5 mg tablet Take 1 tablet by mouth once daily. hydroCHLOROthiazide 25 mg tablet Take 1 tablet by mouth once daily. albuterol HFA (VENTOLIN HFA) 90 mcg/actuation inhaler Inhale 2 Puffs as instructed every 4 hours as needed for wheezing/shortness of breath. Prescribed by pulmonlogist tiotropium bromide (SPIRIVA RESPIMAT) 2.5 mcg/actuation inhaler Inhale 2 Puffs as instructed once daily. Inhale two puffs once daily. albuterol (PROVENTIL) 2.5 mg /3 mL (0.083 %) nebulizer solution Use 3 mL via nebulizer every 4 hours as needed for wheezing/shortness of breath. Use over 5-15minutes. mometasone-formoterol (DULERA) 50-5 mcg/actuation HFA aerosol inhaler Inhale 2 Puffs as instructed two times a day. predniSONE (DELTASONE) 20 mg tablet 1 tablet three times a day for 3 days, then 2 times a day for 3 days, the one daily for 3 days. No current facility-administered medications for this visit. 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-complete loss by age 14 Obesity, Class Iii, Bmi 40-49.9 (Morbid Obesity) ([facility]) - 06/15/2007 Comment: Good visit with Nutrition in 06-19: reportedly stopped Mountain Dew (was using 2 L per day) Normal ALT in 07-20 TSH 2.29 in 07-20 Review PFTs for BASURTO as of 02-18 and consider heart and conditioning Tobacco Use Disorder - 06/15/2007 Comment: Quit tobacco about age 31-gained 100 pounds since that time [place] On Cpap - 06/15/2007 Comment: 03-22-06: AHI 26, supine 53, min sat 85%, mean 93% 04-17-06: 8 cm elim snoring/obs, more info at 9 in supine-rec 9 cm Non-compliant as of 06-19: instructed to contact RT for restarting Restarted CPAP as of 06-19: symptoms much better in 07-20 Esophageal Reflux - 06/15/2007 Comment: No dysphagia or odynophagia as of 06-19 Resolved with weight loss as of 07-20 Umbilical Hernia Without Mention of Obstruction Or Gangrene - 06/15/2007 Comment: No surgical indications as of 06-19 Other Ventral Hernia Without Mention of Obstruction Or Gangre (more content not included)... Normal [facility] CRP SerPl-mCncon 09-03-2024 CRP [Mass/Vol] 0.5 mg/dL Normal <0.9 [facility] Comment on above: Order Comment: Speci men Type: BLOOD SPECIMENOrdering Facility: [facility] Address: [address] [place] [address] Performed By: #### 3 016-3, 1825-07, , 1988-03 ####[facility] LABCLIA [id number] [place] [address] [place] Comprehensive metabolic 2000 panelon 09-03-2024 Albumin [Mass/Vol] 4.3 g/dL Normal 3.9-4.9 [facility] Comment on above: Order Comment: Speci men Type: BLOOD SPECIMENOrdering Facility: [facility] Address: [address] [place] [address] Performed By: #### 3 016-3, 1825-07, , 1988-03 ####[facility] LABCLIA [id number] [place] [address] [place] ALP [Catalytic activity/Vol] 78 U/L Normal 38-113 [facility] Comment on above: Order Comment: Speci men Type: BLOOD SPECIMENOrdering Facility: [facility] Address: [address] [place] [address] Performed By: #### 3 016-3, 1825-07, , 1988-03 ####[facility] LABCLIA [id number] [facility] [place] [id number] [place] ALT [Catalytic activity/Vol] 27 U/L Normal 10-54 [facility] Comment on above: Order Comment: Speci men Type: BLOOD SPECIMENOrdering Facility: [facility] Address: [address] [place] [address] Performed By: #### 3 016-3, 1825-07, , 1988-03 ####[facility] LABCLIA [id number] [place] [id number] [place] Anion gap [Moles/Vol] 11 mmol/L Normal 8-15 [facility] Comment on above: Order Comment: Speci men Type: BLOOD SPECIMENOrdering Facility: [facility] Address: [address] [place] [address] Performed By: #### 3 016-3, 1825-07, , 1988-03 ####[facility] LABCLIA [id number] [place] [address] [place] AST [Catalytic activity/Vol] 32 U/L Normal 14-40 [facility] Comment on above: Order Comment: Speci men Type: BLOOD SPECIMENOrdering Facility: [facility] Address: [address] [place] [address] Performed By: #### 3 016-3, 1825-07, , 1988-03 ####[facility] LABCLIA [id number] [place] [address] [place] Bilirubin [Mass/Vol] 0.3 mg/dL Normal 0.2-1.3 [facility] Comment on above: Order Comment: Speci men Type: BLOOD SPECIMENOrdering Facility: [facility] Address: [address] [place], [place] [id number] Performed By: #### 3 016-3, 1825-07, , 1988-03 ####[facility] LABCLIA [id number] [place] [id number] [place] Calcium [Mass/Vol] 9.4 mg/dL Normal 8.5-10.2 [facility] Comment on above: Order Comment: Speci men Type: BLOOD SPECIMENOrdering Facility: [facility] Address: [address] [place] [address] Performed By: #### 3 016-3, 1825-07, , 1988-03 ####[facility] LABCLIA [id number] [place] [address] [place] Chloride [Moles/Vol] 104 mmol/L Normal 98-107 [facility] Comment on above: Order Comment: Speci men Type: BLOOD SPECIMENOrdering Facility: [facility] Address: [address] [place] [address] Performed By: #### 3 016-3, 1825-07, , 1988-03 ####[facility] LABCLIA [id number] [place] [address] [place] CO2 [Moles/Vol] 26 mmol/L Normal 22-30 [facility] Comment on above: Order Comment: Speci men Type: BLOOD SPECIMENOrdering Facility: [facility] Address: [address] [place] [address] Performed By: #### 3 016-3, 1825-07, , 1988-03 ####[facility] LABCLIA [id number] [place] [address] [place] Creatinine [Mass/Vol] 0.98 mg/dL Normal 0.73-1.22 [facility] Comment on above: Order Comment: Speci men Type: BLOOD SPECIMENOrdering Facility: [facility] Address: [address] [place] [address] Performed By: #### 3 016-3, 1825-07, , 1988-03 ####[facility] LABCLIA [id number] [place] [address] [place] Creatinine and Glomerular filtration rate.predicted panel (S/P/Bld) 89 mL/min/1.73m??? Normal >=60 [facility] Comment on above: Order Comment: Speci men Type: BLOOD SPECIMENOrdering Facility: [facility] Address: [address] [place] [address] Result Comment: Maria D mated Glomerular Filtration Rate (eGFR) is calculated using the 2020 CKD-EPI creatinine equation. This equation utilizes serum creatinine, sex, and age as parameters. The creatinine assay has traceable calibration to isotope dilution-mass spectrometry. Refer to KDIGO guidelines for clinical interpretation. In patients with unstable renal function, e.g. those with acute kidney injury, the eGFR may not accurately reflect actual GFR. Performed By: #### 3 016-3, 1825-07, , 1988-03 ####[facility] LABCLIA [id number] [address] [address] [place] Glucose [Mass/Vol] 99 mg/dL Normal 74-99 [facility] Comment on above: Order Comment: [place] Type: BLOOD SPECIMENOrdering Facility: [facility] Address: [address] [place] [address] Result Comment: The [place] Diabetes Association (ADA) provides guidance for cutoff values for fasting glucose and random glucose. The ADA defines fasting as no caloric intake for at least 8 hours. Fasting plasma glucose results between 100 to 125 mg/dL indicate increased risk for diabetes (prediabetes). Fasting plasma glucose results greater than or equal to 126 mg/dL meet the criteria for diagnosis of diabetes. In the absence of unequivocal hyperglycemia, results should be confirmed by repeat testing. In a patient with classic symptoms of hyperglycemia or hyperglycemic crisis, random plasma glucose results greater than or equal to 200 mg/dL meet the criteria for diagnosis of diabetes. Reference: Standards of Medical Care in Diabetes 2016, [place] [employer] Association. Diabetes Care. 2016.39(Suppl 1). Performed By: #### 3 016-3, 1825-07, , 1988-03 ####[facility] LABCLIA [id number] [facility] [address] [address] [place] Potassium [Moles/Vol] 3.9 mmol/L Normal 3.7-5.1 [facility] Comment on above: Order Comment: [place] Type: BLOOD SPECIMENOrdering Facility: [facility] Address: [address] [place] [address] Performed By: #### 3 016-3, 1825-07, , 1988-03 ####[facility] LABCLIA [id number] [facility] [address] [address] [place] Protein [Mass/Vol] 7.5 g/dL Normal 6.3-8.0 [facility] Comment on above: Order Comment: Speci men Type: BLOOD SPECIMENOrdering Facility: [facility] Address: [address] [place] [address] Performed By: #### 3 016-3, 9, , 1988-03 ####[facility] LABCLIA [id number] [place] [address] [place] Sodium [Moles/Vol] 141 mmol/L Normal 136-144 [facility] Comment on above: Order Comment: Speci men Type: BLOOD SPECIMENOrdering Facility: [facility] Address: [address] [place] [address] Performed By: #### 3 016-3, 1825-07, , 1988-03 ####[facility] LABIA [id number] [place] [address] [place] Urea nitrogen [Mass/Vol] 20 mg/dL Normal 9-24 [facility] Comment on above: Order Comment: Speci men Type: BLOOD SPECIMENOrdering Facility: [facility] Address: [address] [place] [address] Performed By: #### 3 016-3, 1825-07, , 1988-03 ####[facility] LABCLIA [id number] [place] [address] [place] ESR Westergren method (Bld) [Velocity]on 09-03-2024 ESR (Bld) [Velocity] 27 mm/h High 0-15 [facility] Comment on above: Order Comment: Speci men Type: BLOOD SPECIMENOrdering Facility: [facility] Address: [address] [place] [address] Performed By: #### 4 537-7, 16076-6 ####[facility] LABCLIA [id number] [place] [address] [place] HbA1c (Bld)on 09-03-2024 Average glucose Estimated from glycated hemoglobin (Bld) [Mass/Vol] 108 mg/dL Normal [facility] Comment on above: Order Comment: Speci men Type: BLOOD SPECIMENOrdering Facility: [facility] Address: [address] [place] [address] Result Comment: eAG: (Estimated average glucose) is a calculated value from HgbA1c and is food service representative of the average blood glucose level in the last 2-3 month period. Performed By: #### 5 5454-3 ####[facility] LABCLIA [id number] [place] [address] [place] HbA1c (Bld) [Mass fraction] 5.4 % Normal 4.3-5.6 [facility] Comment on above: Order Comment: Speci men Type: BLOOD SPECIMENOrdering Facility: [facility] Address: [address] [place] [address] Result Comment: [place] Diabetes Association guidelines indicate that patients with HgbA1c in the range 5.7-6.4% are at increased risk for development of diabetes, and intervention by lifestyle modification may be beneficial. HgbA1c greater or equal to 6.5% is considered diagnostic of diabetes. Performed By: #### 5 5454-3 ####[facility] LABCLIA [id number] [place] [address] [place] Magnesium SerPl-mCncon 09-03 Magnesium [Mass/Vol] 2.2 mg/dL Normal 1.7-2.3 [facility] Comment on above: Order Comment: Speci men Type: BLOOD SPECIMENOrdering Facility: [facility] Address: [address] [place] [address] Performed By: #### 1 1572-5, 67935-8 ####[facility] LABCLIA [id number] [place] [address] [place] PSA/PROSTATE SPECIFIC ANTIGE N SCREENINGon 09-03-2024 Prostate specific Ag [Mass/Vol] 0.35 ng/mL Normal <2.60 [facility] Comment on above: Order Comment: Speci men Type: BLOOD SPECIMENOrdering Facility: [facility] Address: [address] [place] [address] Result Comment: Stuarta l PSA test methodology used is the Electrochemiluminescence Immunoassay by [employer]. Total PSA values by differing methodologies cannot be interchanged. Performed By: #### P SAS1 ####[facility] [id number] [place] [address] [place] Rheumatoid fact SerPl-aCncon 09-03-2024 Rheumatoid factor Qn [IU]/mL Normal <16 [facility] Comment on above: Order Comment: Speci men Type: BLOOD SPECIMENOrdering Facility: [facility] Address: [address] [place] [address] Performed By: #### 1 1572-5, 63604-8 ####[facility] [id number] [place] [address] [place] TSH SerPl-aCncon 09-03-2024 TSH Qn 3.460 m[IU]/L Normal 0.270-4.200 [facility] Comment on above: Order Comment: Speci men Type: BLOOD SPECIMENOrdering Facility: [facility] Address: [address] [place] [address] Performed By: #### 3 016-3, 1825-9, 99123-7, 1988-03 ####[facility] [id number] [place] [address] [place] XR CERVICAL 4V AP/LAT/OBLon 09-03-2024 XR CERVICAL 4V AP/LAT/OBL * * *Final Report* * * DATE OF EXAM: Sep 03 2024 4:25PM WOX [id number] - XR CERVICAL 4V AP/LAT/OBL / PROCEDURE REASON: Arthralgia of multiple joints * * * * Physician Interpretation * * * * Examination: XR CERVICAL 4V AP/LAT/OBL, XR SHOULDER 2V AP/TRUE AP LT History: Arthralgia of multiple joints Technique: XR CERVICAL 4V AP/LAT/OBL, XR SHOULDER 2V AP/TRUE AP LT Comparison: None RESULT: AP, lateral and oblique views of the cervical spine reveal straightening of the normal lordosis. Mild spondylosis and osteophytosis throughout. Severe disc space narrowing at C6-7. No significant foraminal encroachment. No fracture or prevertebral swelling. Humeral head is in good position within the glenoid. No fracture or focal bony abnormality. Mild acromioclavicular degenerative change. Mild degenerative change involving the greater tuberosity. IMPRESSION: CERVICAL DEGENERATIVE CHANGE DESCRIBED. MILD DEGENERATIVE CHANGE INVOLVING THE LEFT SHOULDER Bone Char Kiln Operator: [facility] Transcribe Date/Time: Sep 09 2024 2:38P Dictated by : KASEY LUIS MD This examination was interpreted and the report reviewed and electronically signed by: KASEY LUIS MD on Sep 09 2024 2:41PM EST [id number] Normal [facility] XR KNEE 2V AP/LAT RTon 09-03 XR KNEE 2V AP/LAT RT * * *Final Report* * * DATE OF EXAM: Sep 03 2024 4:25PM WOX [id number] - XR KNEE 2V AP/LAT RT / PROCEDURE REASON: Arthralgia of multiple joints * * * * Physician Interpretation * * * * PROCEDURE: Right knee INDICATION: Arthralgia of multiple joints .Chronic right knee TECHNIQUE: XR KNEE 2V AP/LAT RT COMPARISON: 09/01/2023 FINDINGS: Severe medial joint compartment narrowing with tricompartment spur formation and genu valgus varus. Subchondral cystic change bridging the medial joint compartment. No fracture or joint effusion. Left TKA is evident. IMPRESSION: Significant osteoarthrosis, showing interval progression Bone Char Kiln Operator: [facility] Transcribe Date/Time: Sep 07 2024 4:03P Dictated by : NERISSA MILLER MD This examination was interpreted and the report reviewed and electronically signed by: NERISSA MILLER MD on Sep 07 2024 4:04PM EST [id number] Normal [facility] XR SHOULDER 2V AP/TRUE AP LT on 09-03-2024 XR SHOULDER 2V AP/TRUE AP LT * * *Final Report* * * DATE OF EXAM: Sep 03 2024 4:25PM WOX [id number] - XR SHOULDER 2V AP/TRUE AP LT / PROCEDURE REASON: Arthralgia of multiple joints * * * * Physician Interpretation * * * * Examination: XR CERVICAL 4V AP/LAT/OBL, XR SHOULDER 2V AP/TRUE AP LT History: Arthralgia of multiple joints Technique: XR CERVICAL 4V AP/LAT/OBL, XR SHOULDER 2V AP/TRUE AP LT Comparison: None RESULT: AP, lateral and oblique views of the cervical spine reveal straightening of the normal lordosis. Mild spondylosis and osteophytosis throughout. Severe disc space narrowing at C6-7. No significant foraminal encroachment. No fracture or prevertebral swelling. Humeral head is in good position within the glenoid. No fracture or focal bony abnormality. Mild acromioclavicular degenerative change. Mild degenerative change involving the greater tuberosity. IMPRESSION: CERVICAL DEGENERATIVE CHANGE DESCRIBED. MILD DEGENERATIVE CHANGE INVOLVING THE LEFT SHOULDER Bone Char Kiln [facility] Transcribe Date/Time: Sep 09 2024 2:38P Dictated by : KASEY LUIS MD This examination was interpreted and the report reviewed and electronically signed by: KAESY LUIS MD on Sep 09 2024 2:41PM EST [id number] Normal [facility] CNOVon 06-17-2024 CNOV Office Visit (WSTR ) -- NANCIE RUANO ([id number]) 1965 M Date Time Provider Department 06/17/24 2:00 PM PERRI [facility] During your visit today, we recorded the following information about you: Temperature Pulse Respiration Blood pressure 97.7 degrees 106/minute 16/minute 134/80 Weight 154.8 kg Perri Green APRN.[employer] 06/17/2024 5:29 PM Signed This note was created using NoteWriter. Subjective Nancie Ruano is a 58 year old male. 58 year old male with PMH HTN, COPD, GERD, umbilical hernia, and obesity presents for back pain. Acute onset a couple months ago Lower mid back Sharp Constant Worse with movement. Denies known trauma or injury Denies CP. 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 The history is provided by the patient. No speech language specialist was used. Back Pain This is a new problem. The current episode started more than 1 week ago. The problem occurs constantly. The problem has not changed since onset.The pain is associated with no known injury. The pain is present in the lumbar spine. Quality: sharp. The pain does not radiate. The pain is at a severity of 7/10. The pain is moderate. The symptoms are aggravated by twisting, bending and certain positions. The pain is The same all the time. Stiffness is present All day. Pertinent negatives include no chest pain, no fever, no numbness, no weight loss, no headaches, no abdominal pain, no abdominal swelling, no bowel incontinence, no perianal numbness, no bladder incontinence, no dysuria, no pelvic pain, no leg pain, no paresthesias, no paresis, no tingling and no weakness. He has tried NSAIDs for the symptoms. The treatment provided no relief. Risk factors include obesity, lack of exercise, poor posture and a sedentary lifestyle. PAST MEDICAL HISTORY No date: asthma No date: Esophageal reflux No date: hearing loss Comment: left ear deafness No date: Hypertension PAST SURGICAL HISTORY No date: PAST SURGICAL HISTORY OF Comment: left ear surgery No date: PAST SURGICAL HISTORY OF Comment: left leg crushed injury ALLERGIES Hctz [Lisinopril-Hydrochlorothi azide] and Penicillins MEDICATIONS albuterol (PROVENTIL) 2.5 mg /3 mL (0.083 %) nebulizer solution Use 3 mL via nebulizer every 4 hours as needed for wheezing/shortness of breath. Use over 5-15minutes. hydroCHLOROthiazide 25 mg tablet Take 1 tablet by mouth once daily. mometasone-formoterol (DULERA) 50-5 mcg/actuation HFA aerosol inhaler Inhale 2 Puffs as instructed two times a day. tiotropium bromide (SPIRIVA RESPIMAT) 2.5 mcg/actuation inhaler Inhale 2 Puffs as instructed once daily. Inhale two puffs once daily. lisinopril (ZESTRIL) 5 mg tablet Take 1 tablet by mouth once daily. albuterol HFA (VENTOLIN HFA) 90 mcg/actuation inhaler Inhale 2 Puffs as instructed every 4 hours as needed for wheezing/shortness of breath. Prescribed by pulmonlogist lisinopril-hydroCHLOROthia zide (ZESTORETIC) 10-12.5 mg per tablet Take 1 tablet by mouth once daily. famotidine (PEPCID) 20 mg tablet Take 1 tablet by mouth at bedtime as needed. Take this once daily on the days you take meloxicam predniSONE (DELTASONE) 10 mg tablet Take 4 tabs daily for 3 days, then 2 tabs daily for 3 days, then 1 tab daily for 3 days with food. cyclobenzaprine (FLEXERIL) 10 mg tablet Take 1 tablet by mouth three times a day as needed for muscle spasm. FAMILY HISTORY Problem Relation Age of Onset Asthma Mother Diabetes Father Coronary Artery Disease Maternal Grandmother other (alzhiemers) Paternal Grandmother Social History Tobacco Use Smoking status: Former Packs/day: 2.00 Years: 25.00 Additional pack years: 0.00 Total pack years: 50.00 Types: Cigarettes Quit date: 11/13/1994 Years since quittin.6 Smokeless tobacco: Never Tobacco comments: quit 25 years ago Substance Use Topics Alcohol use: Yes Comment: occasional beer Drug use: No Review of Systems Constitutional: Negative for activity change, appetite change, chills, fever and weight loss. Eyes: Negative for pain, discharge, redness and itching. Respiratory: Negative for apnea, cough, choking and chest tightness. Cardiovascular: Negative for chest pain. Gastrointestinal: Negative for abdominal pain, bowel incontinence, diarrhea, nausea and vomiting. Genitourinary: Negative for bladder incontinence, dysuria and pelvic pain. Musculoskeletal: Positive for back pain. Negative for gait problem. Skin: Negative for color change, pallor, rash and wound. Allergic/Immunologic: Negative for environmental allergies, food allergies and immunocompromised state. Neurological: Negative for dizziness, tingling, facial asymmetry, weakness, numbness, headaches and pa (more content not included)... Normal [facility] XR LUMBAR 3V AP/LAT/L5-S1on 08-05-2024 XR LUMBAR 3V AP/LAT/L5-S1 * * *Final Report* * * DATE OF EXAM: Jun 17 2024 2:27PM WOX [id number] - XR LUMBAR 3V AP/LAT/L5-S1 / PROCEDURE REASON: Lumbar pain * * * * Physician Interpretation * * * * EXAM TITLE: XR LUMBAR 3V AP/LAT/L5-S1 EXAM DATE/TIME: 06/17/2024 2:27 PM COMPARISON: None. CLINICAL INDICATION/HISTORY: Lumbar pain TECHNIQUE: AP, lateral and cone down lateral views of the lumbar spine are presented. FINDINGS: There are five eym-imn-xatntpu lumbar vertebrae. No fracture or subluxations are noted. L1-2 and L2-3 disc space narrowing is demonstrated. There is at least moderate osteophyte formation. IMPRESSION: Lumbar spine degenerative changes with multilevel disc space narrowing. Bone Char Kiln Operator: JORGE A Transcribe Date/Time: Jun 17 2024 2:40P Dictated by : PANCHITO CHAVEZ MD This examination was interpreted and the report reviewed and electronically signed by: PANCHITO CHAVEZ MD on Jun 17 2024 2:41PM EST [id number] Normal [facility] XR Lumbar spine 3 Viewson IMPRESSION: Lumbar s pine degenerative changes with multilevel disc space narrowing. Bone Char Kiln Operator: [facility] Transcribe Date/Time: Jun 17 2024 2:40P Dictated by : PANCHITO CHAVEZ MD This examination was interpreted and the report reviewed and electronically signed by: PANCHITO CHAVEZ MD on Jun 17 2024 2:41PM [facility] DIVISION OF RADIOLOGY * * *Final Report* * * DATE OF EXAM: Jun 17 2024 2:27PM WOX [id number] - XR LUMBAR 3V AP/LAT/L5-S1 / PROCEDURE REASON: Lumbar pain * * * * Physician Interpretation * * * * EXAM TITLE: XR LUMBAR 3V AP/LAT/L5-S1 EXAM DATE/TIME: 06/17/2024 2:27 PM COMPARISON: None. CLINICAL INDICATION/HISTORY: Lumbar pain TECHNIQUE: AP, lateral and cone down lateral views of the lumbar spine are presented. FINDINGS: There are five khv-xgt-lboonyh lumbar vertebrae. No fracture or subluxations are noted. L1-2 and L2-3 disc space narrowing is demonstrated. There is at least moderate osteophyte formation. DIVISION OF RADIOLOGY Provider, Fito dickey [place] - 06/17/2024 * * *Final Report* * * DATE OF EXAM: Jun 17 2024 2:27PM WOX [id number] - XR LUMBAR 3V AP/LAT/L5-S1 / PROCEDURE REASON: Lumbar pain * * * * Physician Interpretation * * * * EXAM TITLE: XR LUMBAR 3V AP/LAT/L5-S1 EXAM DATE/TIME: 06/17/2024 2:27 PM COMPARISON: None. CLINICAL INDICATION/HISTORY: Lumbar pain TECHNIQUE: AP, lateral and cone down lateral views of the lumbar spine are presented. FINDINGS: There are five njj-qby-igovvzc lumbar vertebrae. No fracture or subluxations are noted. L1-2 and L2-3 disc space narrowing is demonstrated. There is at least moderate osteophyte formation. IMPRESSION IMPRESSION: Lumbar spine degenerative changes with multilevel disc space narrowing. Bone Char Kiln Operator: PSCAlvarez Transcribe Date/Time: Jun 17 2024 2:40P Dictated by : PANCHITO CHAVEZ MD This examination was interpreted and the report reviewed and electronically signed by: PANCHITO CHAVEZ MD on Jun 17 2024 2:41PM EST [facility] Radiology Study observation (narrative) [facility] XR Lumbar spine 3 ViewsOrder ed By: [facility] Provider on 06-17-2024 [facility] Chest PA and Lateralon 03-29 Chest PA and Lateral [facility] Services [address] [place] [address] [id number] Chest PA and Lateral MR#: [id number] Acct: [id number] Name: NANCIE RUANO Rep #: [id number] : 1965 M 58 From: Willam monk MD PCP: Dr. Carlos Garcia MD Status: PRE ER Study: Chest PA and Lateral Date of Exam: 03/29/24 Exam# [id number] Ordering Dr: Alf Reed [employer] [id number] STUDY: X-RAY CHEST REASON FOR EXAM: Male, 58 years old. Cough TECHNIQUE: PA and lateral views of the chest. COMPARISON: Comparison is made with prior study July 07, 2023. FINDINGS: Hyperinflation. The lungs are clear. There is no demonstrated pleural abnormality. Normal size heart. Normal mediastinum and mo. Normal visualized pulmonary arteries. Normal visualized aortic arch and descending thoracic aorta. There are degenerative changes of the visualized thoracic spine. Normal visualized ribs, clavicles, and shoulders. There is no demonstrated abnormality of the visualized soft tissue structures of the upper abdomen. RAD/Chest PA and Lateral IMPRESSION: No acute abnormality is seen. Electronically Signed: Willam Vu MD at 15:20 EDT Reading Location ID and State: [facility] / [place] , Service support , CC: BETTE Reed; Dr. Carlos Garcia MD Bone Char Kiln Operator: Signed Normal [facility] Emergency Department Summary on 03-29-2024 Emergency Department Summary [facility] Medical Records Department [address] [place] [address] Emergency Department Summary 03/29/24 MR#: [id number] Acct: [id number] Name: NANCIE RUANO Joya Rep #: [id number] : 1965 58 From: Alf AMOS PCP: Dr. Carlos Garcia MD Status:DEP ER Location: ED HPI History of Present Illness Chief Complaint: Abd Pain Narrative Narrative: Patient is a 58-year-old male with history of morbid obesity, CAD hypertension who presents to the emergency department for 2 days of cough, shortness of breath. Patient also complained of sore throat. Patient dates his is also ill. Patient states his last time he was on steroids was greater than 1 month ago. He does not smoke cigarettes. Patient states that his cough is hurting his upper abdomen. He denies any chest pain, denies any lower extremity swelling. Denies any known fever or chills. [facility] Medical History Asthma COPD (chronic obstructive pulmonary disease) Emphysema lung Former smoker HTN (hypertension) Hypertension FREDERICK (obstructive sleep apnea) Home Medications ???Medication ???Instructions ???Recorded ???Last Taken ???Type albuterol sulfate 90 mcg/actuation 1 puff inhalation Q6H PRN PRN 04/05/20 04/05/20 09:00 History aerosol inhaler Wheezing lisinopril 10 1 tab PO DAILY 12/17/20 Unknown History mg-hydrochlorothiazide 12.5 mg tablet albuterol sulfate 2.5 mg/0.5 mL 2.5 mg (0.5 mL) inhalation Q6H PRN 11/07/22 Unknown Rx solution for nebulization shortness of breath or wheezing #30 ea albuterol sulfate 90 mcg/actuation 1 inh inhalation Q6H PRN shortness 11/07/22 Unknown Rx aerosol inhaler (ProAir HFA) of breath or wheezing #8.5 grams prednisone 50 mg tablet 50 mg PO DAILY #5 tabs 07/07/23 Unknown Rx tiotropium bromide 18 mcg capsule 1 cap inhalation DAILY 07/07/23 Unknown History with inhalation device (Spiriva with HandiHaler) hydrocodone-acetaminophen 5-325mg 1 tab PO Q6H PRN pain 3 days #12 10/07/23 Unknown Rx 5mg-325mg tabs doxycycline hyclate 100 mg 100 mg PO Q24H #14 tabs 03/29/24 Unknown Rx tablet,delayed release prednisone 50 mg tablet 50 mg PO DAILY #5 tabs 03/29/24 Unknown Rx Allergy/AdvReac Type Severity Reaction Status Date / Time Penicillins Allergy Unknown Verified 03/29/24 14:36 Family History Father COPD (chronic obstructive pulmonary disease) Mother Breast cancer Surgical History History of left knee replacement S/P ear surgery Social History Smoking Status: Former smoker Tobacco: How many years used: 12 how long ago did patient quit smokin second hand exposure: Yes alcohol intake: never substance use type: does not use ROS ROS ED ROS Narrative Constitutional: Negative for fever, chills, weight loss. Positive for generalized weakness Eyes: Negative for vision loss, vision change, double vision ENT: Negative for any ear pain. Positive for sore throat, congestion Cardiovascular: Negative for any chest pain, tightness, palpitations Respiratory: Negative for any hemoptysis, dyspnea, dyspnea on exertion, orthopnea. Positive for cough, sputum production Gastrointestinal: Negative for any abdominal pain, nausea, vomiting, diarrhea, constipation, blood in stool, blood in vomit : Negative for any urinary frequency, dysuria, retention, blood in urine Muscle skeletal: Negative for any neck pain, back pain Neurological: Negative for any headache, syncope, dizziness Skin: Negative for any rashes, itching, abrasions, lacerations Psychiatric: Negative for any depression, anxiety, stress, suicidal ideation, homicidal ideation Hematologic: Negative for any excessive bruising, easy bleeding EXAM Physical Exam Narrative Exam Narrative: Vital signs reviewed. HEET: Head normocephalic atraumatic, right TM appears noninfectious, no bulging. Left TM was markedly different. 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 Posterior pharynx is clear, dry mucous membranes. Nares clear bilaterally. Neck: Supple with no lymphadenopathy or tenderness. No signs of meningismus. Cardiac: Regular rate and rhythm no murmurs gallops or rubs, equal peripheral pulses bilaterally. Respiratory: Patient has expiratory wheezes throughout pulmonary examination.. No chest tenderness. Abdomen: Soft, nontender, nondistended. No abdominal bruit or pulsatile masses. No hepatosplenomegaly Extremities: No peripheral edema, no signs of gross trauma or deformity. Active full range of motion of all extremities. Neuro: Cranial nerves II throu (more content not included)... Normal [facility] M100.677on 03-29-2024 M100.677 Negative Normal [facility] Comment on above: Performed By: #### M 100.677, M100.678 ####[facility] [id number] [place], [address] M100.678on 03-29-2024 M100.678 SARS-CoV-2 (COVID 19 ) Negative INFLUENZA A Negative INFLUENZA B Negative RSV PCR Negative Normal [facility] Comment on above: Performed By: #### M 100.677, M100.678 ####[facility] [id number] [place], [place], [address] CNOVon 01-16-2024 CNOV Office Visit (INTMWS ) -- NANCIE RUANO ([id number]) 1965 M Date Time Provider Department 01/16/24 10:00 AM CARLOS GARCIA INTMWS During your visit today, we recorded the following information about you: Temperature Pulse Respiration Blood pressure 98.5 degrees 76/minute 16/minute 142/90 Weight 153.3 kg Carlos Garcia MD 02/15/2024 11:54 PM Signed This note was created using [employer]Plus[employer]. Subjective Nancie Ruano is a 58 year old male. Patient presents with: Acute Visit: Productive cough, chest congestion, wheezing, chills, headache, sore throat x1 week SUBJECTIVE: Nancie Ruano is a 58 year old year old gentleman here today for follow up appointment for review of medical conditions. Chest wall pain and headache with the coughing. Gets coughing spells. Worse when lays down. Has not been using his inhalers. Uses albuterol just when out. Not at bedtime or at home. Noted in the past had passed out. Has noted sometimes shakes starting at bottom of feet and goes up. PAST MEDICAL HISTORY Diagnosis Date asthma Esophageal reflux hearing loss left ear deafness Hypertension Current Outpatient Medications Medication Sig lisinopril (ZESTRIL) 5 mg tablet Take 1 tablet by mouth once daily. hydroCHLOROthiazide 25 mg tablet Take 1 tablet by mouth once daily. albuterol HFA (VENTOLIN HFA) 90 mcg/actuation inhaler Inhale 2 Puffs as instructed every 4 hours as needed for wheezing/shortness of breath. Prescribed by pulmonlogist mometasone-formoterol (DULERA) 50-5 mcg/actuation HFA aerosol inhaler Inhale 2 Puffs as instructed twice daily. tiotropium bromide (SPIRIVA RESPIMAT) 2.5 mcg/actuation inhaler Inhale 2 Puffs as instructed once daily. Inhale two puffs once daily. albuterol (PROVENTIL) 2.5 mg /3 mL (0.083 %) nebulizer solution Use 3 mL via nebulizer every 4 hours as needed for wheezing/shortness of breath. Use over 5-15minutes. lisinopril-hydroCHLOROthia zide (ZESTORETIC) 10-12.5 mg per tablet Take 1 tablet by mouth once daily. famotidine (PEPCID) 20 mg tablet Take 1 tablet by mouth at bedtime as needed. Take this once daily on the days you take meloxicam No current facility-administered medications for this visit. Review of Systems Constitutional: Positive for chills (Off and on), diaphoresis (Notices pillow wet with perspiration when wakes up), fatigue and fever (Sometimes feels hot). HENT: Positive for congestion, postnasal drip, rhinorrhea (minimal), sinus pressure, sinus pain and sore throat. Negative for ear pain. Respiratory: Positive for cough and wheezing. Objective BP 142/90 Pulse 76 Temp 36.9 ?C (98.5 ?F) Resp 16 Wt (!) 153.3 kg (338 lb) SpO2 92% BMI 49.91 kg/m? Last 5 Encounter Wt Readings: Date: Wt: 01/16/2024 153.3 kg (338 lb) 06/27/2023 152.4 kg (336 lb) 01/19/2023 148.3 kg (327 lb) 01/16/2023 147.4 kg (325 lb) 01/12/2023 148.3 kg (327 lb) No waist measurement recorded Estimated body mass index is 49.91 kg/m? as calculated from the following: Height as of 06/27/23: 175.3 cm (5' 9). Weight as of this encounter: 153.3 kg (338 lb). Last 5 Encounter BP Readings: Date: BP: 01/16/2024 142/90 01/19/2023 130/82 01/16/2023 138/82 01/12/2023 136/80 12/15/2022 132/84 Physical Exam Vitals reviewed. Constitutional: Appearance: Normal appearance. HENT: Head: Normocephalic. Comments: No sinus tenderness Mouth/Throat: Mouth: Mucous membranes are moist. Pharynx: Oropharynx is clear. Eyes: Conjunctiva/sclera: Conjunctivae normal. Cardiovascular: Rate and Rhythm: Normal rate and regular rhythm. Heart sounds: Normal heart sounds. Pulmonary: Effort: Pulmonary effort is normal. Breath sounds: Wheezing (Low pitched wheezes with forced expirations) present. Comments: Coughing spells noted--cough sounds tight Musculoskeletal: Right lower le+ Pitting Edema present. Left lower le+ Pitting Edema present. Lymphadenopathy: Cervical: No cervical adenopathy. Skin: General: Skin is warm and dry. Neurological: General: No focal deficit present. Mental Status: He is alert and oriented to person, place, and time. Psychiatric: Mood and Affect: Mood normal. Behavior: Behavior normal. Thought Content: Thought content normal. Judgment: Judgment normal. Assessment and Plan Encounter Diagnosis ICD-10-CM 1. Chronic obstructive pulmonary disease with acute exacerbation (HCC) J44.1 doxycycline (VIBRA-TABS) 100 mg tablet codeine-guaiFENesin (GUAIFENESIN AC) 10-100 mg/5 mL syrup Discussed management. Follow up if not getting better 2. Sinobronchitis J32.9 doxycycline (VIBRA-TABS) 100 mg tablet J40 codeine-guaiFENesin (GUAIFENESIN AC) 10-100 mg/5 mL syrup As noted above Above issues addressed with patient. Patient involved in shared decision making for management of medical issues. History and medications reviewed (more content not included)... Normal [facility] Emergency Department Summary on 10-07-2023 Emergency Department Summary [facility] Medical Records Department [address] [place] [address] Emergency Department Summary 10/07/23 MR#: [id number] Acct: [id number] Name: NANCIE RUANO Rep #: [id number] : 1965 57 From: Natasha WIGGINS PCP: Dr. Carlos Garcia MD Status:REG ER Location: ED HPI History of Present Illness Chief Complaint: Lower Extremity Injury Narrative Narrative: 57-year-old male presents with acute on chronic right knee pain. It flared up 3 months ago he was seen here had an x-ray and was told it was osteoarthritis. He was taking Tylenol every 6 hours which only minimally helps. About 2 weeks ago he saw an orthopedic doctor in [facility] and had another x-ray. He was told he could trial a pill or knee injection for osteoarthritis and elected to trial the pills. He is not sure what it is but it did not help. His knee hurts worse with walking and he has to stand and move at his job at a [employer]. Today he was taking him a while to walk to the car and he decided to come here instead of go to work. He had no recent injury. No weakness or paresthesias. No calf pain or swelling or DVT risk factors. [facility] Medical History Asthma COPD (chronic obstructive pulmonary disease) Emphysema lung Former smoker HTN (hypertension) Hypertension FREDERICK (obstructive sleep apnea) Home Medications albuterol sulfate 90 mcg/actuation aerosol inhaler 1 puff inhalation Q6H PRN PRN Wheezing 04/05/20 [History Last Taken 04/05/20 09:00] lisinopril 10 mg-hydrochlorothiazide 12.5 mg tablet 1 tab PO DAILY 12/17/20 [History Last Taken Unknown] albuterol sulfate 2.5 mg/0.5 mL solution for nebulization 2.5 mg (0.5 mL) inhalation Q6H PRN shortness of breath or wheezing #30 ea 11/07/22 [Rx Last Taken Unknown] albuterol sulfate 90 mcg/actuation aerosol inhaler (ProAir HFA) 1 inh inhalation Q6H PRN shortness of breath or wheezing #8.5 grams 11/07/22 [Rx Last Taken Unknown] prednisone 50 mg tablet 50 mg PO DAILY #5 tabs 07/07/23 [Rx Last Taken Unknown] tiotropium bromide 18 mcg capsule with inhalation device (Spiriva with HandiHaler) 1 cap inhalation DAILY 07/07/23 [History Last Taken Unknown] hydrocodone-acetaminophen 5-325mg 5mg-325mg 1 tab PO Q6H PRN pain 3 days #12 tabs 10/07/23 [Rx Last Taken Unknown] Allergy/AdvReac Type Severity Reaction Status Date / Time Penicillins Allergy Unknown Verified 10/07/23 15:00 Family History Father COPD (chronic obstructive pulmonary disease) Mother Breast cancer Surgical History History of left knee replacement S/P ear surgery Social History Smoking Status: Former smoker Tobacco: How many years used: 12 how long ago did patient quit smokin second hand exposure: Yes alcohol intake: never substance use type: does not use ROS ROS ED ROS Narrative Constitutional: Negative for fever, chills, malaise. Neuro: Negative for motor/sensory dysfunction. Skin: Negative for rash,wound. Musc: Positive for right knee pain, swelling. EXAM Physical Exam Narrative Exam Narrative: CONST: Patient sitting in no acute distress. EYES: Normal inspection. NECK: Normal inspection. RESP: No respiratory distress, CTAB. CVS: Regular rate and rhythm, no murmur, no gallop. SKIN: Color normal, no rash, warm, dry, intact. EXTREMITIES: Tender palpation over right knee, full range of motion, negative anterior/posterior and varus valgus testing. 5/5 strength in knee flexion/extension and DF/PF, normal sensation, 2+ DP pulse. Compartments soft. NEURO: Oriented x4. PSYCH: Normal affect. Const Vital Signs: 10/07/23 15:01 Temperature 97.1 F L Temperature Source Temporal Pulse Rate 105 H Respiratory Rate 20 H Blood Pressure 165/94 H Blood Pressure Mean 117 Pulse Ox 96 Oxygen Delivery Method Room Air Physical Exam Const Vital Signs: 10/07/23 15:01 Temperature 97.1 F L Temperature Source Temporal Pulse Rate 105 H Respiratory Rate 20 H Blood Pressure 165/94 H Blood Pressure Mean 117 Pulse Ox 96 Oxygen Delivery Method Room Air MDM MDM MDM Narrative Medical decision making narrative: Patient has chronic right knee pain with history of osteoarthritis. He has had no new injury. He has had 2 x-rays within the last 6 weeks 1 of which is in our system and I reviewed on 08/14 which shows arthritic changes. Since there is no new trauma and he is neurovascularly intact I did not order repeat imaging. There is no erythema, warmth, fever so I do not suspect septic joint. His pain was treated with Toradol and [place] and I prescribed a short course of (more content not included)... Normal [facility] XR Knee - right 4 Viewson IMPRESSION: Mild right knee osteoarthritis. Bone Char Kiln Operator: JORGE A Transcribe Date/Time: Sep 04 2023 2:38P Dictated by : SHIMA RICHTER MD This examination was interpreted and the report reviewed and electronically signed by: SHIMA RICHTER MD on Sep 04 2023 2:39PM [facility] * * *Final Report* * * DATE OF EXAM: Sep 01 2023 2:06PM MDSrinath 5203 - XR KNEE 4V AP/PA BOTH+LAT/FLOR RT / PROCEDURE REASON: M25.561-Right knee pain, unspecified chronicity * * * * Physician Interpretation * * * * EXAMINATION / TECHNIQUE: XR KNEE 4V AP/PA BOTH+LAT/FLOR RT PATIENT/TECHNOLOGIST PROVIDED HISTORY: RIGHT KNEE PAIN CLINICAL INFORMATION ( PROVIDED BY ORDERING CLINICIAN) : Right knee pain, unspecified chronicity COMPARISON: None RESULT: Mild medial compartment joint space narrowing and small tricompartmental osteophytosis. No fracture or dislocation. No joint effusion. Quadriceps enthesopathy. Limited AP view of the left knee notable for total knee arthroplasty. [facility] Provider, Fito Casey - 09/04/2023 * * *Final Report* * * DATE OF EXAM: Sep 01 2023 2:06PM MDO 5203 - XR KNEE 4V AP/PA BOTH+LAT/FLOR RT / PROCEDURE REASON: M25.561-Right knee pain, unspecified chronicity * * * * Physician Interpretation * * * * EXAMINATION / TECHNIQUE: XR KNEE 4V AP/PA BOTH+LAT/FLOR RT PATIENT/TECHNOLOGIST PROVIDED HISTORY: RIGHT KNEE PAIN CLINICAL INFORMATION ( PROVIDED BY ORDERING CLINICIAN) : Right knee pain, unspecified chronicity COMPARISON: None RESULT: Mild medial compartment joint space narrowing and small tricompartmental osteophytosis. No fracture or dislocation. No joint effusion. Quadriceps enthesopathy. Limited AP view of the left knee notable for total knee arthroplasty. IMPRESSION IMPRESSION: Mild right knee osteoarthritis. Bone Char Kiln Operator: JORGE A Transcribe Date/Time: Sep 04 2023 2:38P Dictated by : SHIMA RICHTER MD This examination was interpreted and the report reviewed and electronically signed by: SHIMA RICHTER MD on Sep 04 2023 2:39PM EST [facility] XR Knee - right 4 ViewsOrder ed By: [facility] Provider on 09-04-2023 [facility] XR KNEE 4V AP/PA BOTH+LAT/ME R RTon 09-01-2023 XR KNEE 4V AP/PA BOTH+LAT/FLOR RT * * *Final Report* * * DATE OF EXAM: Sep 01 2023 2:06PM BOOGIE 5203 - XR KNEE 4V AP/PA BOTH+LAT/FLOR RT / PROCEDURE REASON: M25.561-Right knee pain, unspecified chronicity * * * * Physician Interpretation * * * * EXAMINATION / TECHNIQUE: XR KNEE 4V AP/PA BOTH+LAT/FLOR RT PATIENT/TECHNOLOGIST PROVIDED HISTORY: RIGHT KNEE PAIN CLINICAL INFORMATION ( PROVIDED BY ORDERING CLINICIAN) : Right knee pain, unspecified chronicity COMPARISON: None RESULT: Mild medial compartment joint space narrowing and small tricompartmental osteophytosis. No fracture or dislocation. No joint effusion. Quadriceps enthesopathy. Limited AP view of the left knee notable for total knee arthroplasty. IMPRESSION: Mild right knee osteoarthritis. Bone Char Kiln Operator: JORGE A Transcribe Date/Time: Sep 04 2023 2:38P Dictated by : SHIMA RICHTER MD This examination was interpreted and the report reviewed and electronically signed by: SHIMA RICHTER MD on Sep 04 2023 2:39PM EST [id number] [facility] XR KNEE GENERAL 4V AP BOTH/P A BOTH/LAT/MERC RIGHTon 09-01-2023 [facility] XR Knee - right 4 Viewson Radiology Study observation (narrative) [facility] Emergency Department Summary on 08-15-2023 Emergency Department Summary [facility] Medical Records Department [address] [address] Emergency Department Summary 08/14/23 MR#: [id number] Acct: [id number] Name: NANCIE RUANO Rep #: [id number] : 1965 57 From: Scout Gutierrez DO PCP: Dr. Carlos Garcia MD Status:REG ER Location: ED HPI History of Present Illness Chief Complaint: Lower Extremity Injury [facility] Medical History Asthma COPD (chronic obstructive pulmonary disease) Emphysema lung Former smoker HTN (hypertension) Hypertension FREDERICK (obstructive sleep apnea) Home Medications albuterol sulfate 90 mcg/actuation aerosol inhaler 1 puff inhalation Q6H PRN PRN Wheezing 04/05/20 [History Last Taken 04/05/20 09:00] lisinopril 10 mg-hydrochlorothiazide 12.5 mg tablet 1 tab PO DAILY 12/17/20 [History Last Taken Unknown] albuterol sulfate 2.5 mg/0.5 mL solution for nebulization 2.5 mg (0.5 mL) inhalation Q6H PRN shortness of breath or wheezing #30 ea 11/07/22 [Rx Last Taken Unknown] albuterol sulfate 90 mcg/actuation aerosol inhaler (ProAir HFA) 1 inh inhalation Q6H PRN shortness of breath or wheezing #8.5 grams 11/07/22 [Rx Last Taken Unknown] prednisone 50 mg tablet 50 mg PO DAILY #5 tabs 07/07/23 [Rx Last Taken Unknown] tiotropium bromide 18 mcg capsule with inhalation device (Spiriva with HandiHaler) 1 cap inhalation DAILY 07/07/23 [History Last Taken Unknown] Allergy/AdvReac Type Severity Reaction Status Date / Time Penicillins Allergy Unknown Verified 08/14/23 21:13 Family History Father COPD (chronic obstructive pulmonary disease) Mother Breast cancer Surgical History History of left knee replacement S/P ear surgery Social History Smoking Status: Former smoker Tobacco: How many years used: 12 how long ago did patient quit smokin second hand exposure: Yes alcohol intake: never substance use type: does not use EXAM Physical Exam Const Vital Signs: 08/14/23 21:13 Temperature 97.8 F Temperature Source Temporal Pulse Rate 109 H Respiratory Rate 18 Blood Pressure 147/93 H Blood Pressure Mean 111 Pulse Ox 94 [facility] Narrative Medical decision making narrative: HISTORY OF PRESENT ILLNESS: 57-year-old male presents with acute on chronic right knee pain. No injury endorsed. States he is dealt with chronic knee pain for the last 2 years and has been worse over the last several days. Notes taking oral meloxicam without relief. Denies any fever. Denies a history of surgery to right knee. Does note similar symptoms in his left knee however that is since undergone a total knee replacement which he endorses improved his symptoms. He denies any DVT risk factors. REVIEW OF SYSTEMS: Pertinent positives: Right knee pain Pertinent negatives: Weakness, numbness, loss sensation, discoloration, coolness to touch, unilateral leg swelling PHYSICAL EXAM: Nursing triage notes reviewed, Vital signs reviewed Constitutional: please see mdm Extremities: No edema, decreased range of motion secondary to pain in right knee however pain is out of proportion to exam. There is no obvious effusion, compartments are soft, patella appears in good alignment. Intact quadriceps tendon complex. Neuro: Intact sensation L1-S1 dermatomal distributions. Intact 5/5 strength in hip flexion (T12- L3). Knee extension (L2-L4). Ankle dorsiflexion (L4-L5). Ankle plantar flexion (S1). Great toe extension (L5). 2+ patellar and Achilles DTRs. Skin: No rash or lesions noted, no redness or erythema noted MEDICAL DECISION MAKING: Chief Complaint: Knee pain External records reviewed: No recent advanced imaging of the involved extremity Factors affecting care: Status post total knee replacement of the left knee Social determinants of health: Obesity History obtained from others: none Consults: none [facility] Narrative: Patient was hemodynamically stable, afebrile, nontoxic-appearing. Exam with neurovascular intact right lower extremity. No clinical signs of septic arthritis, DVT, arterial occlusion, compartment syndrome, quadriceps tendon rupture I suspect the patient is suffering from osteoarthritis likely benefit from evaluation from pain management and orthopedic surgery for potential replacement. I suspect the patient's symptoms are exacerbated by morbid obesity (BMI 50.2). Encouraged tylenol, ibuprofen and RICE therapy. Encouraged weight loss. ALL IMAGES (IF OBTAINED) HAVE BEEN PERSONALLY REVIEWED AND INTERPRETED BY MYSELF. I obtained an x-ray. X-ray was personally read reviewed by myself and shows no evidence of acute fracture dislocati (more content not included)... Normal [facility] Knee 4 or More Viewson 08-14 Knee 4 or More Views [facility] Imaging Services [address] [place] [address] Knee 4 or More Views MR#: [id number] Acct: [id number] Name: NANCIE RUANO Rep #: [id number] : 1965 M 57 From: Bruce yo MD PCP: Dr. Carlos Garcia MD Status: PRE ER Study: Knee 4 or More Views Date of Exam: 08/14/23 Exam# [id number] Ordering Dr: Anoop Adam. [id number] STUDY: X-RAY - RIGHT KNEE REASON FOR EXAM: Male, 57 years old. pain TECHNIQUE: 4 view(s) of the knee. COMPARISON: None. FINDINGS: Normal visualized distal femur. Normal visualized proximal tibia and fibula. Normal proximal tibiofibular articulation. There is no demonstrated fracture. There is mild degenerative arthrosis and narrowing of the medial femorotibial compartment. Normal lateral femorotibial compartment. Normal patellofemoral articulation. There is no demonstrated joint effusion. The soft tissue structures are unremarkable. RAD/Knee 4 or More Views IMPRESSION: No definite acute or significant abnormality seen. No effusion is seen. Electronically Signed: Bruce Espinosa MD at 22:41 EDT , CC: Dr. Carlos Garcia MD; ED PHYSICIAN PROVIDER Bone Char Kiln Operator: Signed Normal [facility] Absolute lymphocyte countOrd ered By: ED PROVIDER on 07-07-2023 Lymphocytes Auto (Unsp spec) [#/Vol] 2.51 10*3/uL 0.83-4.51 [facility] BNP,B-Type NATRIURETIC PEPTI Ceci 07-07-2023 Natriuretic peptide B (Bld) [Mass/Vol] pg/mL Normal 0-100 [facility] Comment on above: Performed By: #### L 503.6620 #### [facility] [address] [place], [address] Basic Metabolic Profile (BMP )on 07-07-2023 BUN/CRE 18.4 RATIO Normal 10-20 [facility] Comment on above: Order Comment: 1 Y Performed By: #### L 100.0100, L500.2500, L501.5425 #### [facility] [address] [place], [address] CA,Total 8.9 mg/dL Normal 8.5-10.1 [facility] Comment on above: Order Comment: 1 Y Performed By: #### L 100.0100, L500.2500, L501.5425 #### [facility] [address] [place], [address] Chloride [Moles/Vol] 105 mmol/L Normal 98-107 [facility] Comment on above: Order Comment: 1 Y Performed By: #### L 100.0100, L500.2500, L501.5425 #### [facility] [address] [place], [address] CO2 [Moles/Vol] 29.0 mmol/L Normal 21.0-32.0 [facility] Comment on above: Order Comment: 1 Y Performed By: #### L 100.0100, L500.2500, L501.5425 #### [facility] [address] [place], [address] Creatinine [Mass/Vol] 1.14 mg/dL Normal 0.70-1.30 [facility] Comment on above: Order Comment: 1 Y Result Comment: The validity of the calculated GFR GFRAA in patients over 70 years has not been determined. Clinical correlation is essential. Performed By: #### L 100.0100, L500.2500, L501.5425 #### [facility] [address] [place], [address] ECRCL 70.63 ml/min Normal [facility] Comment on above: Order Comment: 1 Y Performed By: #### L 100.0100, L500.2500, L501.5425 #### [facility] [address] [place], [address] EST GFR - AA 85 mL/min Normal >60 [facility] Comment on above: Order Comment: 1 Y Result Comment: Afri can [place] GFR Calc Performed By: #### L 100.0100, L500.2500, L501.5425 #### [facility] [address] [place], [address] GAP 4 Low 5-15 [facility] Comment on above: Order Comment: 1 Y Performed By: #### L 100.0100, L500.2500, L501.5425 #### [facility] [address] [place], [address] GFR/1.73 sq M.predicted among non-blacks MDRD (S/P/Bld) [Vol rate/Area] 70 mL/min/{1.73_m2} Normal >60 [facility] Comment on above: Order Comment: 1 Y Result Comment: Non- GFR Calc Performed By: #### L 100.0100, L500.2500, L501.5425 #### [facility] [address] [place], [address] Glucose [Mass/Vol] 96 mg/dL Normal 74-106 [facility] Comment on above: Order Comment: 1 Y Performed By: #### L 100.0100, L500.2500, L501.5425 #### [facility] [address] [place], [address] Potassium [Moles/Vol] 3.4 mmol/L Low 3.5-5.1 [facility] Comment on above: Order Comment: 1 Y Performed By: #### L 100.0100, L500.2500, L501.5425 #### [facility] [address] [place], [address] Sodium [Moles/Vol] 138 mmol/L Normal 136-145 [facility] Comment on above: Order Comment: 1 Y Performed By: #### L 100.0100, L500.2500, L501.5425 #### [facility] [address] [place], [address] Urea nitrogen [Mass/Vol] 21 mg/dL High 7-18 [facility] Comment on above: Order Comment: 1 Y Performed By: #### L 100.0100, L500.2500, L501.5425 #### [facility] [address] [place], [address] Basophil percentageOrdered B y: ED PROVIDER on 07-07-2023 Basophils/100 WBC (Bld) 0.5 % 0-1 [facility] Eosinophils/100 WBC (Bld) 3.9 % 0-5 [facility] Neutrophils (Bld) [#/Vol] 4.6 10*3/uL 2.0-7.7 [facility] Neutrophils/100 WBC (Bld) 55.9 % 47-70 [facility] WBC (Bld) [#/Vol] 8.3 10*3/uL 4.4-11.0 [facility] Basophil percentageOrdered B y: Jared Almaraz on 07-07-2023 Chloride [Moles/Vol] 105 mmol/L 98-107 [facility] Glucose [Mass/Vol] 96 mg/dL 74-106 [facility] Potassium [Moles/Vol] 3.4 mmol/L 3.5-5.1 [facility] Sodium [Moles/Vol] 138 mmol/L 136-145 [facility] Blood erythrocytes count (nu mber/volume)Ordered By: ED PROVIDER on 07-07-2023 RBC (Bld) [#/Vol] 4.76 10*6/uL 4.6-6.[address] [facility] Blood hemoglobin measurement (mass/volume)Ordered By: ED PROVIDER on 07-07-2023 Hemoglobin (Bld) [Mass/Vol] 14.5 g/dL 13.0-16.5 [facility] Blood lymphocytes/100 leukoc ytesOrdered By: ED PROVIDER on 07-07-2023 Lymphocytes/100 WBC (Bld) 30.4 % 19-41 [facility] Blood monocytes/100 leukocyt esOrdered By: ED PROVIDER on 07-07-2023 Monocytes/100 WBC (Bld) 9.1 % 0-10 [facility] Blood platelet mean volumeOr dered By: ED PROVIDER on 07-07-2023 Platelet mean volume (Bld) [Entitic vol] 11.3 fL 6.2-12.0 [facility] CBC W/Diff, Automatedon 06-14 Absolute Lymph 2.51 X10 3/uL Normal 0.83-4.51 [facility] Comment on above: Performed By: #### L 100.0100, L500.2500, L501.5425 #### [facility] [address] [facility] [place], [address] Absolute Neut 4.6 X10 3/uL Normal 2.0-7.7 [facility] Comment on above: Performed By: #### L 100.0100, L500.2500, L501.5425 #### [facility] [address] [place], [address] Basophils/100 WBC (Bld) 0.5 % Normal 0-1 [facility] Comment on above: Performed By: #### L 100.0100, L500.2500, L501.5425 #### [facility] [address] [place], [address] Eosinophils/100 WBC (Bld) 3.9 % Normal 0-5 [facility] Comment on above: Performed By: #### L 100.0100, L500.2500, L501.5425 #### [facility] [address] [place], [address] Erythrocyte distribution width (RBC) [Ratio] 12.9 % Normal 11.6-14.6 [facility] Comment on above: Performed By: #### L 100.0100, L500.2500, L501.5425 #### [facility] [address] [place], [address] Hematocrit (Bld) [Volume fraction] 43.8 % Normal 40-54 [facility] Comment on above: Performed By: #### L 100.0100, L500.2500, L501.5425 #### [facility] [address] [place], [address] Hemoglobin (Bld) [Mass/Vol] 14.5 g/dL Normal 13.0-16.5 [facility] Comment on above: Performed By: #### L 100.0100, L500.2500, L501.5425 #### [facility] [address] [place], [address] IG% 0.200 Normal 0.0-0.9 [facility] Comment on above: Result Comment: IG% - Immature Granulocytes (promyelocytes, myelocytes and metamyelocytes) > 1% indicates that a LEFT SHIFT is Present. Performed By: #### L 100.0100, L500.2500, L501.5425 #### [facility] [address] [place], [address] Lymphocytes/100 WBC (Bld) 30.4 % Normal 19-41 [facility] Comment on above: Performed By: #### L 100.0100, L500.2500, L501.5425 #### [facility] [address] [place], [address] MCH (RBC) [Entitic mass] 30.5 pg Normal 27.0-32.0 [facility] Comment on above: Performed By: #### L 100.0100, L500.2500, L501.5425 #### [facility] [address] [place], [address] MCHC (RBC) [Mass/Vol] 33.1 g/dL Normal 32-36 [facility] Comment on above: Performed By: #### L 100.0100, L500.2500, L501.5425 #### [facility] [address] [place], [address] MCV (RBC) [Entitic vol] 92.0 fL Normal 80-94 [facility] Comment on above: Performed By: #### L 100.0100, L500.2500, L501.5425 #### [facility] [address] [place], [address] Monocytes/100 WBC (Bld) 9.1 % Normal 0-10 [facility] Comment on above: Performed By: #### L 100.0100, L500.2500, L501.5425 #### [facility] [address] [place], [address] Neutrophils/100 WBC (Bld) 55.9 % Normal 47-70 [facility] Comment on above: Performed By: #### L 100.0100, L500.2500, L501.5425 #### [facility] [address] [place], [address] Nucleated RBC (Bld) [#/Vol] 0 10*3/uL Normal 0-5 [facility] Comment on above: Performed By: #### L 100.0100, L500.2500, L501.5425 #### [facility] [address] [place], [address] Platelet mean volume (Bld) [Entitic vol] 11.3 fL Normal 6.2-12.0 [facility] Comment on above: Performed By: #### L 100.0100, L500.2500, L501.5425 #### [facility] [address] [place], [address] Platelets (Bld) [#/Vol] 233 10*3/uL Normal 150-450 [facility] Comment on above: Performed By: #### L 100.0100, L500.2500, L501.5425 #### [facility] [address] [place], [address] RBC (Bld) [#/Vol] 4.76 10*6/uL Normal 4.6-6.[address] [facility] Comment on above: Performed By: #### L 100.0100, L500.2500, L501.5425 #### [facility] [address] [place], [address] RDW SD 43.9 fl Normal 35.1-43.9 [facility] Comment on above: Performed By: #### L 100.0100, L500.2500, L501.5425 #### [facility] [address] [place], [address] WBC (Bld) [#/Vol] 8.3 10*3/uL Normal 4.4-11.0 [facility] Comment on above: Performed By: #### L 100.0100, L500.2500, L501.5425 #### [facility] [address] [place], [address] Chest PA and Lateralon 07-07 Chest PA and Lateral [facility] [address] [place] [address] Chest PA and Lateral MR#: [id number] Acct: [id number] Name: NANCIE RUANO Rep #: [id number] : 1965 M 57 From: Fernanda cardenas MD PCP: Dr. Carlos Garcia MD Status: [facility] ER Study: Chest PA and Lateral Date of Exam: 07/07/23 Exam# [id number] Ordering Dr: Alf Reed [employer]athya INDICATION: cough EXAMINATION/TECHNIQUE: X-RAY - XR Chest 2 Views COMPARISON: 04/30/2023. FINDINGS: LINES/DEVICES: None. LUNGS: No consolidation, edema or effusion. No pneumothorax. MEDIASTINUM AND CARDIOVASCULAR STRUCTURES: Cardiac silhouette not enlarged. Central airways and mediastinal contour are unremarkable. BONES AND SOFT TISSUES: Unremarkable. RAD/Chest PA and Lateral IMPRESSION: No radiographic evidence of acute cardiopulmonary disease. Electronically Signed: Fernanda Trevino MD at 18:46 EDT Reading Location ID and State: [id number] / Tel , Service support , CC: BETTE Reed; Dr. Carlos Garcia MD Bone Char Kiln Operator: Signed Normal [facility] D-Dimer Quantitative (DVT/PE )on 07-07-2023 D-DIMER QUANT 0.30 FEU/ug/m Normal 0.27-0.49 [facility] Comment on above: Result Comment: NORM AL D-Dimer level (<0.50) indicates no DVT or PE. Performed By: #### L 300.8000 ####[facility] [address] [facility] [place], [address] Determination of erythrocyte mean corpuscular volume (MCV)Ordered By: ED PROVIDER on 07-07-2023 MCV (RBC) [Entitic vol] 92.0 fL 80-94 [facility] Emergency Department Summary on 07-07-2023 Emergency Department Summary [facility] Medical Records Department [address] [facility] [place] [address] Emergency Department Summary 07/07/23 MR#: [id number] Acct: [id number] Name: NANCIE RUANO Rep #: [id number] : 1965 57 From: Jared Almaraz MD PCP: Dr. Carlos Garcia MD Status:DEP ER Location: ED HPI History of Present Illness Chief Complaint: Shortness of Breath Narrative Narrative: Patient is a 57-year-old male with history of COPD, obesity, CHF who presents to the emergency department for ongoing chest pain, shortness of breath. Patient states that getting winded, having some chest pressure is not abnormal for him. Today he was at work, he was lifting up a chicken, while walking he felt more short of breath, or chest pain it did not go away and he is here for evaluation. 2 weeks ago, he was placed on new inhalers by his PCP however they are not helping. He is currently not on any prednisone or steroids. [facility] Medical History Asthma COPD (chronic obstructive pulmonary disease) Emphysema lung Former smoker HTN (hypertension) Hypertension FREDERICK (obstructive sleep apnea) Home Medications albuterol sulfate 90 mcg/actuation aerosol inhaler 1 puff inhalation Q6H PRN PRN Wheezing 04/05/20 [History Last Taken 04/05/20 09:00] lisinopril 10 mg-hydrochlorothiazide 12.5 mg tablet 1 tab PO DAILY 12/17/20 [History Last Taken Unknown] albuterol sulfate 2.5 mg/0.5 mL solution for nebulization 2.5 mg (0.5 mL) inhalation Q6H PRN shortness of breath or wheezing #30 ea 11/07/22 [Rx Last Taken Unknown] albuterol sulfate 90 mcg/actuation aerosol inhaler (ProAir HFA) 1 inh inhalation Q6H PRN shortness of breath or wheezing #8.5 grams 11/07/22 [Rx Last Taken Unknown] prednisone 50 mg tablet 50 mg PO DAILY #5 tabs 07/07/23 [Rx Last Taken Unknown] tiotropium bromide 18 mcg capsule with inhalation device (Spiriva with HandiHaler) 1 cap inhalation DAILY 07/07/23 [History Last Taken Unknown] Allergy/AdvReac Type Severity Reaction Status Date / Time Penicillins Allergy Unknown Verified 07/07/23 17:32 Family History Father COPD (chronic obstructive pulmonary disease) Mother Breast cancer Surgical History History of left knee replacement S/P ear surgery Social History Smoking Status: Former smoker Tobacco: How many years used: 12 how long ago did patient quit smokin second hand exposure: Yes alcohol intake: never substance use type: does not use ROS ROS ED ROS Narrative Constitutional: Negative for fever, chills, weight loss, weakness Eyes: Negative for vision loss, vision change, double vision ENT: Negative for any sore throat, ear pain, congestion Cardiovascular: Negative for any chest pain, tightness, palpitations Respiratory: Negative for any sputum production, hemoptysis. Positive for cough dyspnea, dyspnea on exertion, orthopnea Gastrointestinal: Negative for any abdominal pain, nausea, vomiting, diarrhea, constipation, blood in stool, blood in vomit : Negative for any urinary frequency, dysuria, retention, blood in urine Muscle skeletal: Negative for any muscle joint pain, stiffness, myalgias, arthralgias, neck pain, back pain Neurological: Negative for any headache, syncope, numbness or tingling, dizziness Skin: Negative for any rashes, lumps, itching, abrasions, lacerations Psychiatric: Negative for any depression, anxiety, stress, suicidal ideation, homicidal ideation Hematologic: Negative for any easy bruising, excessive bruising, easy bleeding Allergies: Negative for any eczema, hives, rash EXAM Physical Exam Narrative Exam Narrative: Vital signs reviewed. HEET: Head normocephalic atraumatic, TMs clear bilaterally. Posterior pharynx is clear, moist mucous membranes. Nares clear bilaterally. Neck: Supple with no lymphadenopathy or tenderness. No signs of meningismus, negative jolt sign. Cardiac: Regular rate and rhythm no murmurs gallops or rubs, equal peripheral pulses bilaterally. Respiratory: Expiratory wheezes bilateral lower bases. No chest tenderness. Abdomen: Soft, nontender, nondistended. No abdominal bruit or pulsatile masses. No hepatosplenomegaly Extremities: Patient does have large edematous legs however they are not pitting edema., no signs of gross trauma or deformity. Active full range of motion of all extremities. Neuro: Cranial nerves II through XII intact, no focal neurological deficits. Skin: Clean dry and intact with no rash, purpura, petechiae, vesicles or pustules. Backs/flank: No CVA tenderness, no midline spinal tenderness, no deformity. Psych: Normal mood and affect. No SI, HI or acute psychosis. Const Vital Signs: (more content not included)... Normal [facility] Hematocrit Auto (Bld) [Volum e fraction]Ordered By: ED PROVIDER on 07-07-2023 Hematocrit (Bld) [Volume fraction] 43.8 % 40-54 [facility] Influenza virus A and B and SARS-CoV-2 (COVID-19) Ag panel - Upper respiratory specimOrdered By: Alf Reed on 07-07-2023 SARS-CoV-2 (COVID-19) RNA MICHEAL+probe Ql (Resp) [facility] SARS-CoV-2 (COVID-19) RNA MICHEAL+probe Ql (Resp) [facility] L501.4020on 07-07-2023 TROPONIN-I HS 13 pg/mL Normal 3.0-78.0 [facility] Comment on above: Result Comment: Plea se Note: New Test Units and Gender Specific Reference Ranges. For more information see Policy Stat Procedure [place] High Sensitivity Troponin (TNIH) and attachments. Performed By: #### L 501.4020 ####[facility] [address] [place], [place], [address] L501.5404on 07-07-2023 TROPONIN-I HS 13 pg/mL Normal 3.0-78.0 [facility] Comment on above: Order Comment: 1 Y Result Comment: Plejeanne se Note: New Test Units and Gender Specific Reference Ranges. For more information see Policy Stat Procedure [place] High Sensitivity Troponin (TNIH) and attachments. Performed By: #### L 100.0100, L500.2500, L501.5425 #### [facility] [address] [place], [place], [address] Laboratory - Chemistry and C hemistry - challengeOrdered By: Jared Almaraz on 07-07-2023 CO2 [Moles/Vol] 29.0 mmol/L 21.0-32.0 [facility] Urea nitrogen/Creatinine [Mass ratio] 18.4 mg/mg 10-20 [facility] Laboratory - Chemistry and C hemistry - challengeOrdered By: Alf Reed on 07-07-2023 Natriuretic peptide B (Bld) [Mass/Vol] pg/mL 0-100 [facility] - Hematology and Cell countsOrdered By: ED PROVIDER on 07-07-2023 Erythrocyte distribution width (RBC) [Entitic vol] 43.9 fL 35.1-43.9 [facility] Erythrocyte distribution width (RBC) [Ratio] 12.9 % 11.6-14.6 [facility] Immature granulocytes/100 WBC (Bld) 0.200 % 0.0-0.9 [facility] Comment on above: IG% - Immature Granu locytes (promyelocytes, myelocytes and metamyelocytes) > 1% indicates that a LEFT SHIFT is Present. MCH (RBC) [Entitic mass] 30.5 pg 27.0-32.0 [facility] Nucleated RBC/100 WBC (Bld) [Ratio] 0 % 0-5 [facility] M101.0111on 07-07-2023 M101.0111 *Negative results fr om patients with symptom onset beyond five days should be treated as presumptive and confirmed by a molecular assay if clinically necessary. Negative results should not be used as the sole basis for treatment or for patient management. FLUABV+SARS-CoV2 Ag Pnl Up resp IA.rapid *Positive results do not differentiate between SARS-CoV and SARS-CoV-2. FLUABV+SARS-CoV2 Ag Pnl Up resp IA.rapid Negative Influenza results should be confirmed with FLU PANEL MOLECULAR if indicated. FLUABV+SARS-CoV2 Ag Pnl Up resp IA.rapid * This test has not been FDA cleared or approved; the test has been authorized by FDA under an Emergency Use Authorization (EAU) for use by laboratories certified under CLIA that meet the requirements to perform moderate, high, or waived complexity tests. FLUABV+SARS-CoV2 Ag Pnl Up resp IA.rapid Normal Reference Range: Negative Yudelka, BETTINA method SARS-CoV-2 (COVID 19) Negative Influenza Ag, Direct NEGATIVE for Influenza A/B Antigen (See Note) Normal [facility] Comment on above: Performed By: #### M 101.0111 ####[facility] [address] [place], [address] MCHC Auto (RBC) [Mass/Vol]Or dered By: ED PROVIDER on 07-07-2023 MCHC (RBC) [Mass/Vol] 33.1 g/dL 32-36 [facility] No Panel InformationOrdered By: Jared Almaraz on 07-07-2023 Troponin I High Sensitivity 13 pg/mL 3.0-78.0 [facility] Comment on above: Please Note: New Chela t Units and Gender Specific Reference Ranges. For more information see Policy Stat Procedure [place] High Sensitivity Troponin (TNIH) and attachments. Estimated Creatinine Clearance Calc 70.63 ml/min [facility] Estimated GFR (MDRD) Amer 85 mL/min >60 [facility] Comment on above: GFR Calc Estimated GFR (MDRD) Non-Af Amer 70 mL/min >60 [facility] Comment on above: Non- GFR Calc No Panel InformationOrdered By: Alf Reed on 07-07-2023 D-Dimer Quantitative (PE/DVT) 0.30 FEU/ug/m 0.27-0.49 [facility] Comment on above: NORMAL D-Dimer level (<0.50) indicates no DVT or PE. Platelets bldOrdered By: ED PROVIDER on 07-07-2023 Platelets (Bld) [#/Vol] 233 10*3/uL 150-450 [facility] Serum or plasma calcium andie urement (mass/volume)Ordered By: Jared Almaraz on 07-07-2023 Calcium [Mass/Vol] 8.9 mg/dL 8.5-10.1 [facility] Serum or plasma creatinine m easurement (mass/volume)Ordered By: Jared Almaraz on 07-07-2023 Creatinine [Mass/Vol] 1.14 mg/dL 0.70-1.30 [facility] Comment on above: The validity of the calculated GFR & GFRAA in patients over 70 years has not been determined. Clinical correlation is essential. Serum or plasma urea nitroge n measurement (mass/volume)Ordered By: Jared Almaraz on 07-07-2023 Urea nitrogen [Mass/Vol] 21 mg/dL 7-18 [facility] Thin prep Papanicolaou smear with manual screeningOrdered By: Jared Almaraz on 07-07-2023 Thin prep Papanicolaou smear with manual screening 4 5-15 [facility] Absolute lymphocyte countOrd ered By: Dr. España on 04-30-2023 Lymphocytes Auto (Unsp spec) [#/Vol] 3.11 10*3/uL 0.83-4.51 [facility] Basic Metabolic Profile (BMP )on 04-30-2023 BUN/CRE 18.4 RATIO Normal 10-20 [facility] Comment on above: Order Comment: 'TROP ' Serial specimen #1, #2 or #3: 1 Performed By: #### L 501.4020, L500.2500, L100.0100 #### [facility] [address] [place], [address] CA,Total 9.1 mg/dL Normal 8.5-10.1 [facility] Comment on above: Order Comment: 'TROP ' Serial specimen #1, #2 or #3: 1 Performed By: #### L 501.4020, L500.2500, L100.0100 #### [facility] [address] [place], [address] Chloride [Moles/Vol] 107 mmol/L Normal 98-107 [facility] Comment on above: Order Comment: 'TROP ' Serial specimen #1, #2 or #3: 1 Performed By: #### L 501.4020, L500.2500, L100.0100 #### [facility] [address] [place], [address] CO2 [Moles/Vol] 32.0 mmol/L Normal 21.0-32.0 [facility] Comment on above: Order Comment: 'TROP ' Serial specimen #1, #2 or #3: 1 Performed By: #### L 501.4020, L500.2500, L100.0100 #### [facility] [address] [place], [address] Creatinine [Mass/Vol] 0.92 mg/dL Normal 0.70-1.30 [facility] Comment on above: Order Comment: 'TROP ' Serial specimen #1, #2 or #3: 1 Result Comment: The validity of the calculated GFR GFRAA in patients over 70 years has not been determined. Clinical correlation is essential. Performed By: #### L 501.4020, L500.2500, L100.0100 #### [facility] [address] [place], [address] ECRCL 87.52 ml/min Normal [facility] Comment on above: Order Comment: 'TROP ' Serial specimen #1, #2 or #3: 1 Performed By: #### L 501.4020, L500.2500, L100.0100 #### [facility] [address] [place], [address] EST GFR - AA 108 mL/min Normal >60 [facility] Comment on above: Order Comment: 'TROP ' Serial specimen #1, #2 or #3: 1 Result Comment: Afri can [place] GFR Calc Performed By: #### L 501.4020, L500.2500, L100.0100 #### [facility] [address] [place], [address] GAP 2 Low 5-15 [facility] Comment on above: Order Comment: 'TROP ' Serial specimen #1, #2 or #3: 1 Performed By: #### L 501.4020, L500.2500, L100.0100 #### [facility] [address] [place], [address] GFR/1.73 sq M.predicted among non-blacks MDRD (S/P/Bld) [Vol rate/Area] 89 mL/min/{1.73_m2} Normal >60 [facility] Comment on above: Order Comment: 'TROP ' Serial specimen #1, #2 or #3: 1 Result Comment: Non- GFR Calc Performed By: #### L 501.4020, L500.2500, L100.0100 #### [facility] [address] [place], [address] Glucose [Mass/Vol] 97 mg/dL Normal 74-106 [facility] Comment on above: Order Comment: 'TROP ' Serial specimen #1, #2 or #3: 1 Performed By: #### L 501.4020, L500.2500, L100.0100 #### [facility] [address] [place], [address] Potassium [Moles/Vol] 4.0 mmol/L Normal 3.5-5.1 [facility] Comment on above: Order Comment: 'TROP ' Serial specimen #1, #2 or #3: 1 Performed By: #### L 501.4020, L500.2500, L100.0100 #### [facility] [address] [place], [address] Sodium [Moles/Vol] 141 mmol/L Normal 136-145 [facility] Comment on above: Order Comment: 'TROP ' Serial specimen #1, #2 or #3: 1 Performed By: #### L 501.4020, L500.2500, L100.0100 #### [facility] [address] [place], [address] Urea nitrogen [Mass/Vol] 17 mg/dL Normal 7-18 [facility] Comment on above: Order Comment: 'TROP ' Serial specimen #1, #2 or #3: 1 Performed By: #### L 501.4020, L500.2500, L100.0100 #### [facility] [address] [place], [address] Basophil percentageOrdered B y: Dr. España on 04-30-2023 Basophils/100 WBC (Bld) 0.6 % 0-1 [facility] Chloride [Moles/Vol] 107 mmol/L 98-107 [facility] Eosinophils/100 WBC (Bld) 5.7 % 0-5 [facility] Glucose [Mass/Vol] 97 mg/dL 74-106 [facility] Neutrophils (Bld) [#/Vol] 4.4 10*3/uL 2.0-7.7 [facility] Neutrophils/100 WBC (Bld) 49.5 % 47-70 [facility] Potassium [Moles/Vol] 4.0 mmol/L 3.5-5.1 [facility] Sodium [Moles/Vol] 141 mmol/L 136-145 [facility] WBC (Bld) [#/Vol] 8.9 10*3/uL 4.4-11.0 [facility] Blood erythrocytes count (nu mber/volume)Ordered By: Dr. España on 04-30-2023 RBC (Bld) [#/Vol] 4.86 10*6/uL 4.6-6.[address] [facility] Blood hemoglobin measurement (mass/volume)Ordered By: Dr. España on 04-30-2023 Hemoglobin (Bld) [Mass/Vol] 14.9 g/dL 13.0-16.5 [facility] Blood lymphocytes/100 leukoc ytesOrdered By: Dr. España on 04-30-2023 Lymphocytes/100 WBC (Bld) 35.1 % 19-41 [facility] Blood monocytes/100 leukocyt esOrdered By: Dr. España on 04-30-2023 Monocytes/100 WBC (Bld) 8.9 % 0-10 [facility] Blood platelet mean volumeOr dered By: Dr. España on 04-30-2023 Platelet mean volume (Bld) [Entitic vol] 11.7 fL 6.2-12.0 [facility] CBC W/Diff, Automatedon 04-13 Absolute Lymph 3.11 X10 3/uL Normal 0.83-4.51 [facility] Comment on above: Performed By: #### L 501.4020, L500.2500, L100.0100 #### [facility] [address] [place], [place], [id number] Absolute Neut 4.4 X10 3/uL Normal 2.0-7.7 [facility] Comment on above: Performed By: #### L 501.4020, L500.2500, L100.0100 #### [facility] [address] [place], [address] Basophils/100 WBC (Bld) 0.6 % Normal 0-1 [facility] Comment on above: Performed By: #### L 501.4020, L500.2500, L100.0100 #### [facility] [address] [place], [address] Eosinophils/100 WBC (Bld) 5.7 % High 0-5 [facility] Comment on above: Performed By: #### L 501.4020, L500.2500, L100.0100 #### [facility] [address] [place], [address] Erythrocyte distribution width (RBC) [Ratio] 13.1 % Normal 11.6-14.6 [facility] Comment on above: Performed By: #### L 501.4020, L500.2500, L100.0100 #### [facility] [address] [place], [address] Hematocrit (Bld) [Volume fraction] 44.3 % Normal 40-54 [facility] Comment on above: Performed By: #### L 501.4020, L500.2500, L100.0100 #### [facility] [address] [place], [address] Hemoglobin (Bld) [Mass/Vol] 14.9 g/dL Normal 13.0-16.5 [facility] Comment on above: Performed By: #### L 501.4020, L500.2500, L100.0100 #### [facility] [address] [place], [address] IG% 0.200 Normal 0.0-0.9 [facility] Comment on above: Result Comment: IG% - Immature Granulocytes (promyelocytes, myelocytes and metamyelocytes) > 1% indicates that a LEFT SHIFT is Present. Performed By: #### L 501.4020, L500.2500, L100.0100 #### [facility] [address] [place], [address] Lymphocytes/100 WBC (Bld) 35.1 % Normal 19-41 [facility] Comment on above: Performed By: #### L 501.4020, L500.2500, L100.0100 #### [facility] [address] [place], [address] MCH (RBC) [Entitic mass] 30.7 pg Normal 27.0-32.0 [facility] Comment on above: Performed By: #### L 501.4020, L500.2500, L100.0100 #### [facility] [address] [place], [address] MCHC (RBC) [Mass/Vol] 33.6 g/dL Normal 32-36 [facility] Comment on above: Performed By: #### L 501.4020, L500.2500, L100.0100 #### [facility] [address] [place], [address] MCV (RBC) [Entitic vol] 91.2 fL Normal 80-94 [facility] Comment on above: Performed By: #### L 501.4020, L500.2500, L100.0100 #### [facility] [address] [place], [address] Monocytes/100 WBC (Bld) 8.9 % Normal 0-10 [facility] Comment on above: Performed By: #### L 501.4020, L500.2500, L100.0100 #### [facility] [address] [place] [place], [address] Neutrophils/100 WBC (Bld) 49.5 % Normal 47-70 [facility] Comment on above: Performed By: #### L 501.4020, L500.2500, L100.0100 #### [facility] [address] [place], [address] Nucleated RBC (Bld) [#/Vol] 0 10*3/uL Normal 0-5 [facility] Comment on above: Performed By: #### L 501.4020, L500.2500, L100.0100 #### [facility] [address] [place], [address] Platelet mean volume (Bld) [Entitic vol] 11.7 fL Normal 6.2-12.0 [facility] Comment on above: Performed By: #### L 501.4020, L500.2500, L100.0100 #### [facility] [address] [place], [address] Platelets (Bld) [#/Vol] 209 10*3/uL Normal 150-450 [facility] Comment on above: Performed By: #### L 501.4020, L500.2500, L100.0100 #### [facility] [address] [place], [address] RBC (Bld) [#/Vol] 4.86 10*6/uL Normal 4.6-6.[address] [facility] Comment on above: Performed By: #### L 501.4020, L500.2500, L100.0100 #### [facility] [address] [place], [address] RDW SD 43.8 fl Normal 35.1-43.9 [facility] Comment on above: Performed By: #### L 501.4020, L500.2500, L100.0100 #### [facility] [address] [place], [address] WBC (Bld) [#/Vol] 8.9 10*3/uL Normal 4.4-11.0 [facility] Comment on above: Performed By: #### L 501.4020, L500.2500, L100.0100 #### [facility] [address] [place], [address] Chest 1 View (Portable)on Chest 1 View (Portable) [facility] Imaging Services [address] [place] [address] Chest 1 View (Portable) MR#: [id number] Acct: [id number] Name: ALANANANCIE Joya Rep #: [id number] : 1965 M 57 From: Luis Alberto Chua MD PCP: Dr. Carlos Garcia MD Status: REG ER Study: Chest 1 View (Portable) Date of Exam: 04/30/23 Exam# [id number] Ordering Dr: Lani España MD EXAM: XR CHEST, 1 VIEW CLINICAL INDICATION: chest pain TECHNIQUE: Frontal view of the chest. COMPARISON: November 07, 2022 FINDINGS: LUNGS AND PLEURAL SPACES: Unremarkable. No consolidation or edema. No pneumothorax. No effusion. HEART: Unremarkable. Cardiac silhouette not enlarged. MEDIASTINUM: Central airways and mediastinal contour are unremarkable. BONES/JOINTS: Degenerative changes of the spine. SOFT TISSUES: Unremarkable. RAD/Chest 1 View (Portable) IMPRESSION: No radiographic evidence of acute cardiopulmonary disease. Electronically Signed: Luis Alberto Chua MD at 21:51 EDT , CC: Dr. Lani España MD; Dr. Carlos Garcia MD Bone Char Kiln Operator: Signed Normal [facility] Determination of erythrocyte mean corpuscular volume (MCV)Ordered By: Dr. España on 04-30-2023 MCV (RBC) [Entitic vol] 91.2 fL 80-94 [facility] Emergency Department Summary on 04-30-2023 Emergency Department Summary [facility] Medical Records Department [address] [place] [address] Emergency Department Summary 04/30/23 MR#: [id number] Acct: [id number] Name: NANCIE RUANO Rep #: [id number] : 1965 57 From: Lani España MD PCP: Dr. Carlos Garcia MD Status:DEP ER Location: ED HPI History of Present Illness Chief Complaint: Chest Pain Informant: patient Onset/Context/Timing Onset: Yesterday Activity at onset: gradual Timing: Waxes and wanes Quality: Positive for Heaviness and Sharp Location: Substernal Current Severity: Mild Maximum Severity: Moderate Worsened By: Exertion and Coughing Narrative Narrative: Patient presents with chest pain along with cough and shortness of breath. He states when he was at work yesterday he got heaviness and sharp pain in his chest that got better after he got home and rested. He has had cough and shortness of breath with some wheezing as well. He does have a history of COPD. Today at work symptoms returned so he presented to the emergency room for evaluation. He has not noted a fever. He is not coughing up any phlegm. [facility] Medical History Asthma COPD (chronic obstructive pulmonary disease) Emphysema lung Former smoker HTN (hypertension) Hypertension FREDERICK (obstructive sleep apnea) Home Medications albuterol sulfate 90 mcg/actuation aerosol inhaler 1 puff inhalation Q6H PRN PRN Wheezing 04/05/20 [History Last Taken 04/05/20 09:00] lisinopril 10 mg-hydrochlorothiazide 12.5 mg tablet 1 ea PO DAILY 12/17/20 [History Last Taken Unknown] brompheniramine-phenylprop anol ER 12 mg-75 mg tablet,ext.release 12 hr 1 tab PO BID PRN Cold Symptoms 07/20/21 [History Last Taken Unknown] albuterol sulfate 2.5 mg/0.5 mL solution for nebulization 2.5 mg (0.5 mL) inhalation Q6H PRN shortness of breath or wheezing #30 ea 11/07/22 [Rx Last Taken Unknown] albuterol sulfate 90 mcg/actuation aerosol inhaler (ProAir HFA) 1 inh inhalation Q6H PRN shortness of breath or wheezing #8.5 grams 11/07/22 [Rx Last Taken Unknown] doxycycline monohydrate 100 mg capsule 100 mg PO BID #20 CAPSULES 04/30/23 [Rx Last Taken Unknown] prednisone 20 mg tablet 40 mg PO DAILY #8 tabs 04/30/23 [Rx Last Taken Unknown] Allergy/AdvReac Type Severity Reaction Status Date / Time Penicillins Allergy Unknown Verified 04/30/23 20:41 Family History Father COPD (chronic obstructive pulmonary disease) Mother Breast cancer Surgical History History of left knee replacement S/P ear surgery Social History Smoking Status: Former smoker Tobacco: How many years used: 12 how long ago did patient quit smokin second hand exposure: Yes alcohol intake: never substance use type: does not use ROS ROS ED Constitutional Constitutional ED: Denies chills or fever(s) Eyes Eyes: Denies change in vision or discharge from eye(s) ENT ENT ED: Denies discharge from eye(s), rhinorrhea or sore throat Cardiovascular Cardiovascular: Reports chest pain; Denies palpitations Respiratory/Chest Respiratory/Chest: Reports cough and dyspnea Gastrointestinal Gastrointestinal: Denies abdominal pain, nausea or vomiting Genitourinary Genitourinary ED: Denies difficulty urinating or dysuria Musculoskeletal Musculoskeletal: Denies back pain or extremity pain Integumentary Denies Abrasions or rash Neurologic Neurologic: Denies headache(s) or weakness Psychiatric Psychiatric: Denies anxiety or depression Allergic/Immunologic Allergic/Immunologic ED: Denies lip swelling or urticaria EXAM Physical Exam Const Vital Signs: 04/30/23 20:39 04/30/23 20:50 04/30/23 20:53 Temperature 98.0 F Temperature Source Temporal Pulse Rate 79 Respiratory Rate 16 Respiratory Pattern Normal Blood Pressure 135/74 H Blood Pressure Mean 94 Pulse Ox 95 Oxygen Delivery Method Room Air Room Air Positive well nourished and well developed General Appearance ED: well developed HEENT Reports normocephalic and head/scalp atraumatic Eyes PERRL and EOMs intact bilaterally Neck supple Chest Wall inspection of chest normal and palpation of chest normal Resp normal respiratory effort Resp Narrative: Diminished lung sounds bilateral bases. No wheezing noted at this time. Cardio regular rate and regular rhythm GI normal to inspection, nondistended, normoactive bowel sounds Palpation: soft Extremity Extremity Narrative: 2-3+ bilateral lower extremity VINNY, symmetric. Patient states this is baseline. Neuro oriented x3 and no sensory deficits noted Sensorium / Orientation: alert Motor Exam: strength 5/5 througho (more content not included)... Normal [facility] Hematocrit Auto (Bld) [Volum e fraction]Ordered By: Dr. España on 04-30-2023 Hematocrit (Bld) [Volume fraction] 44.3 % 40-54 [facility] L501.4020on 04-30-2023 TROPONIN-I HS 20 pg/mL Normal 3.0-78.0 [facility] Comment on above: Order Comment: 'TROP ' Serial specimen #1, #2 or #3: 1 Result Comment: Plea se Note: New Test Units and Gender Specific Reference Ranges. For more information see Policy Stat Procedure [place] High Sensitivity Troponin (TNIH) and attachments. Performed By: #### L 501.4020, L500.2500, L100.0100 ####[facility] [address] [place], [address] Laboratory - Chemistry and C hemistry - challengeOrdered By: Dr. España on 04-30-2023 CO2 [Moles/Vol] 32.0 mmol/L 21.0-32.0 [facility] Urea nitrogen/Creatinine [Mass ratio] 18.4 mg/mg 10-20 [facility] - Hematology and Cell countsOrdered By: Dr. España on 04-30-2023 Erythrocyte distribution width (RBC) [Entitic vol] 43.8 fL 35.1-43.9 [facility] Erythrocyte distribution width (RBC) [Ratio] 13.1 % 11.6-14.6 [facility] Immature granulocytes/100 WBC (Bld) 0.200 % 0.0-0.9 [facility] Comment on above: IG% - Immature Granu locytes (promyelocytes, myelocytes and metamyelocytes) > 1% indicates that a LEFT SHIFT is Present. MCH (RBC) [Entitic mass] 30.7 pg 27.0-32.0 [facility] Nucleated RBC/100 WBC (Bld) [Ratio] 0 % 0-5 [facility] MCHC Auto (RBC) [Mass/Vol]Or dered By: Dr. España on 04-30-2023 MCHC (RBC) [Mass/Vol] 33.6 g/dL 32-36 [facility] No Panel InformationOrdered By: Dr. España on 04-30-2023 Estimated Creatinine Clearance Calc 87.52 ml/min [facility] Estimated GFR (MDRD) Amer 108 mL/min >60 [facility] Comment on above: GFR Calc Estimated GFR (MDRD) Non-Af Amer 89 mL/min >60 [facility] Comment on above: Non- GFR Calc Troponin I High Sensitivity 20 pg/mL 3.0-78.0 [facility] Comment on above: Please Note: New [place] t Units and Gender Specific Reference Ranges. For more information see Policy Stat Procedure [place] High Sensitivity Troponin (TNIH) and attachments. Platelets bldOrdered By: Dr. España on 04-30-2023 Platelets (Bld) [#/Vol] 209 10*3/uL 150-450 [facility] Serum or plasma calcium andie urement (mass/volume)Ordered By: Dr. España on 04-30-2023 Calcium [Mass/Vol] 9.1 mg/dL 8.5-10.1 [facility] Serum or plasma creatinine m easurement (mass/volume)Ordered By: Dr. España on 04-30-2023 Creatinine [Mass/Vol] 0.92 mg/dL 0.70-1.30 [facility] Comment on above: The validity of the calculated GFR & GFRAA in patients over 70 years has not been determined. Clinical correlation is essential. Serum or plasma urea nitroge n measurement (mass/volume)Ordered By: Dr. España on 04-30-2023 Urea nitrogen [Mass/Vol] 17 mg/dL 05-30 [facility] Thin prep Papanicolaou smear with manual screeningOrdered By: Dr. España on 04-30-2023 Thin prep Papanicolaou smear with manual screening 2 5-15 [facility] Culture, urineOrdered By: Dr Silvestre Guan on 12-08-2022 Bacteria identified Cx Nom (U) Culture exhibits no growth. [facility] Basophil percentageOrdered B y: Dr. Guan on 12-06-2022 Basophil percentage 0 SEEN /hpf 0-5 [facility] Bilirubin Test strip Ql (U)O rdered By: Dr. Guan on 12-06-2022 Bilirubin Ql (U) Negative Negative [facility] Ketones Test strip Ql (U)Ord ered By: Dr. Guan on 12-06-2022 Ketones Ql (U) Negative Negative [facility] Mucus LM Ql (Urine sed)Order ed By: Dr. Guan on 12-06-2022 Mucus Ql (Urine sed) 0 SEEN /hpf [facility] Nitrite Test strip Ql (U)Ord ered By: Dr. Guan on 12-06-2022 Nitrite Ql (U) Negative Negative [facility] Protein Test strip Ql (U)Ord ered By: Dr. Guan on 12-06-2022 Protein Ql (U) Negative Negative [facility] Squamous epithelial cells de tection in urine sediment by light microscopyOrdered By: Dr. Guan on 12-06-2022 Epithelial cells.squamous LM Ql (Urine sed) 0-5 SEEN /hpf 0-5 [facility] Urine blood detectionOrdered By: Dr. Guan on 12-06-2022 RBC Ql (U) Negative Negative [facility] RBC Ql (U) 0 SEEN /hpf 0-5 [facility] Urine clarityOrdered By: Dr. Guan on 12-06-2022 Clarity (U) Clear Clear [facility] Urine color determinationOrd ered By: Dr. Guan on 12-06-2022 Color (U) Yellow Yellow [facility] Urine glucose detectionOrder ed By: Dr. Guan on 12-06-2022 Glucose Ql (U) Normal mg/dl Normal [facility] Urine leukocyte esterase det ection by dipstickOrdered By: Dr. Guan on 12-06-2022 Leukocyte esterase Test strip Ql (U) 25 /ul Negative [facility] Urine pHOrdered By: Dr. Markus maharaj on 12-06-2022 pH (U) 7.0 [pH] 5.0 - 8.0 [facility] Urine sediment bacteria coun t by microscopy (number/high power field)Ordered By: Dr. Guan on 12-06-2022 Bacteria LM.HPF (Urine sed) [#/Area] 0 /[HPF] None Seen [facility] Urine specific gravity measu rementOrdered By: Dr. Guan on 12-06-2022 Specific gravity (U) [Rel density] 1.010 1.002-1.030 [facility] Urobilinogen Auto test strip Ql (U)Ordered By: Dr. Guan on 12-06-2022 Urobilinogen Ql (U) Normal mg/dl Normal [facility] Absolute lymphocyte countOrd ered By: Dr. Beatty on 11-07-2022 Lymphocytes Auto (Unsp spec) [#/Vol] 2.51 10*3/uL 0.83-4.51 [facility] Basophil percentageOrdered B y: Dr. Beatty on 11-07-2022 Basophils/100 WBC (Bld) 0.4 % 0-1 [facility] Chloride [Moles/Vol] 105 mmol/L 98-107 [facility] Eosinophils/100 WBC (Bld) 4.4 % 0-5 [facility] Glucose [Mass/Vol] 91 mg/dL 74-106 [facility] Neutrophils (Bld) [#/Vol] 3.3 10*3/uL 2.0-7.7 [facility] Neutrophils/100 WBC (Bld) 43.4 % 47-70 [facility] Potassium [Moles/Vol] 3.6 mmol/L 3.5-5.1 [facility] Sodium [Moles/Vol] 141 mmol/L 136-145 [facility] WBC (Bld) [#/Vol] 7.5 10*3/uL 4.4-11.0 [facility] Blood erythrocytes count (nu mber/volume)Ordered By: Dr. Beatty on 11-07-2022 RBC (Bld) [#/Vol] 4.80 10*6/uL 4.6-6.[address] [facility] Blood hemoglobin measurement (mass/volume)Ordered By: Dr. Beatty on 11-07-2022 Hemoglobin (Bld) [Mass/Vol] 14.7 g/dL 13.0-16.5 [facility] Blood lymphocytes/100 leukoc ytesOrdered By: Dr. Beatty on 11-07-2022 Lymphocytes/100 WBC (Bld) 33.4 % 19-41 [facility] Blood monocytes/100 leukocyt esOrdered By: Dr. Beatty on 11-07-2022 Monocytes/100 WBC (Bld) 18.1 % 0-10 [facility] Blood platelet mean volumeOr dered By: Dr. Beatty on 11-07-2022 Platelet mean volume (Bld) [Entitic vol] 12.2 fL 6.2-12.0 [facility] Determination of erythrocyte mean corpuscular volume (MCV)Ordered By: Dr. Beatty on 11-07-2022 MCV (RBC) [Entitic vol] 94.6 fL 80-94 [facility] Hematocrit Auto (Bld) [Volum e fraction]Ordered By: Dr. Beatty on 11-07-2022 Hematocrit (Bld) [Volume fraction] 45.4 % 40-54 [facility] Influenza virus A and B and SARS-CoV-2 (COVID-19) Ag panel - Upper respiratory specimOrdered By: Dr. Beatty on 11-07-2022 SARS-CoV-2 & FLU Antigen (Rapid) SARS-CoV-2 (COVID 19) [facility] - Chemistry and C hemistry - challengeOrdered By: Dr. Beatty on 11-07-2022 CO2 [Moles/Vol] 32.0 mmol/L 21.0-32.0 [facility] Natriuretic peptide B (Bld) [Mass/Vol] 3.6 pg/mL 0-100 [facility] Urea nitrogen/Creatinine [Mass ratio] 14.9 mg/mg 10-20 [facility] Laboratory - Hematology and Cell countsOrdered By: Dr. Beatty on 11-07-2022 Erythrocyte distribution width (RBC) [Entitic vol] 45.2 fL 35.1-43.9 [facility] Erythrocyte distribution width (RBC) [Ratio] 13.1 % 11.6-14.6 [facility] Immature granulocytes/100 WBC (Bld) 0.300 % 0.0-0.9 [facility] Comment on above: IG% - Immature Granu locytes (promyelocytes, myelocytes and metamyelocytes) > 1% indicates that a LEFT SHIFT is Present. MCH (RBC) [Entitic mass] 30.6 pg 27.0-32.0 [facility] Nucleated RBC/100 WBC (Bld) [Ratio] 0 % 0-5 [facility] MCHC Auto (RBC) [Mass/Vol]Or dered By: Dr. Beatty on 11-07-2022 MCHC (RBC) [Mass/Vol] 32.4 g/dL 32-36 [facility] No Panel InformationOrdered By: Dr. Beatty on 11-07-2022 Estimated Creatinine Clearance Calc 86.70 ml/min [facility] Estimated GFR (MDRD) Amer 106 mL/min >60 [facility] Comment on above: GFR Calc Estimated GFR (MDRD) Non-Af Amer 88 mL/min >60 [facility] Comment on above: Non- GFR Calc Troponin I High Sensitivity 15 pg/mL 3.0-78.0 [facility] Comment on above: Please Note: New Chela t Units and Gender Specific Reference Ranges. For more information see Policy Stat Procedure [place] High Sensitivity Troponin (TNIH) and attachments. Platelets bldOrdered By: Dr. Beatty on 11-07-2022 Platelets (Bld) [#/Vol] 202 10*3/uL 150-450 [facility] Serum or plasma calcium andie urement (mass/volume)Ordered By: Dr. Beatty on 11-07-2022 Calcium [Mass/Vol] 8.7 mg/dL 8.5-10.1 [facility] Serum or plasma creatinine m easurement (mass/volume)Ordered By: Dr. Beatty on 11-07-2022 Creatinine [Mass/Vol] 0.94 mg/dL 0.70-1.30 [facility] Comment on above: The validity of the calculated GFR & GFRAA in patients over 70 years has not been determined. Clinical correlation is essential. Serum or plasma urea nitroge n measurement (mass/volume)Ordered By: Dr. Beatty on 11-07-2022 Urea nitrogen [Mass/Vol] 14 mg/dL 7-18 [facility] Thin prep Papanicolaou smear with manual screeningOrdered By: Dr. Beatty on 11-07-2022 Thin prep Papanicolaou smear with manual screening 4 -15 [facility] XR Chest PA and Lateralon IMPRESSION: Multiple small patchy or hazy opacities in the bilateral lungs predominantly involving the left lung. Please clinically correlate. Bone Char Kiln Operator: JORGE A Transcribe Date/Time: Jul 28 2021 10:32A Dictated by : PANCHITO CHAVEZ MD This examination was interpreted and the report reviewed and electronically signed by: PANCHITO CHAVEZ MD on Jul 28 2021 10:34AM [facility] DIVISION OF RADIOLOGY * * *Final Report* * * DATE OF EXAM: Jul 28 2021 10:20AM WOX 5291 - XR CHEST 2V FRONTAL/LAT / PROCEDURE REASON: SOBOE (shortness of breath on exertion) * * * * Physician Interpretation * * * * EXAMINATION: CHEST RADIOGRAPH (2 VIEW FRONTAL & LATERAL) CLINICAL HISTORY: SOBOE (shortness of breath on exertion) MQ: XC2_6 EXAM DATE/TIME: 07/28/2021 10:20 AM COMPARISON: Chest x-ray on 02/22/2015. RESULT: Lines, tubes, and devices: None. Lungs and pleura: There are multiple small patchy or hazy opacities in the bilateral lungs predominantly involving the left mid to lower lung zones. No solid mass lesion seen. No pleural effusions or pneumothorax. Cardiomediastinal silhouette: Normal cardiomediastinal silhouette. Bones and soft tissues: There are mild degenerative changes in the spine. DIVISION OF RADIOLOGY Provider, [facility] - 07/28/2021 * * *Final Report* * * DATE OF EXAM: Jul 28 2021 10:20AM WOX 5291 - XR CHEST 2V FRONTAL/LAT / PROCEDURE REASON: SOBOE (shortness of breath on exertion) * * * * Physician Interpretation * * * * EXAMINATION: CHEST RADIOGRAPH (2 VIEW FRONTAL & LATERAL) CLINICAL HISTORY: SOBOE (shortness of breath on exertion) MQ: XC2_6 EXAM DATE/TIME: 07/28/2021 10:20 AM COMPARISON: Chest x-ray on 02/22/2015. RESULT: Lines, tubes, and devices: None. Lungs and pleura: There are multiple small patchy or hazy opacities in the bilateral lungs predominantly involving the left mid to lower lung zones. No solid mass lesion seen. No pleural effusions or pneumothorax. Cardiomediastinal silhouette: Normal cardiomediastinal silhouette. Bones and soft tissues: There are mild degenerative changes in the spine. IMPRESSION IMPRESSION: Multiple small patchy or hazy opacities in the bilateral lungs predominantly involving the left lung. Please clinically correlate. Bone Char Kiln Operator: JORGE A Transcribe Date/Time: Jul 28 2021 10:32A Dictated by : PANCHITO CHAVEZ MD This examination was interpreted and the report reviewed and electronically signed by: PANCHITO CHAVEZ MD on Jul 28 2021 10:34AM EST [facility] Radiology Study observation (narrative) [facility] XR Chest PA and LateralOrder ed By: [facility] Provider on 07-28-2021 [facility] .GFRon 02-16-2019 GFR Non- >60 Normal [facility] ([place]) Comment on above: Result Comment: GFR Population mean for , Non- Americans Ages 20-29 = 116 mL/min/1.73 sq.m. Ages 30-39 = 107 mL/min/1.73 sq.m. Ages 40-49 = 99 mL/min/1.73 sq.m. Ages 50-59 = 93 mL/min/1.73 sq.m. Ages 60-69 = 85 mL/min/1.73 sq.m. Ages 70+ = 75 mL/min/1.73 sq.m. Chronic Kidney Disease: Less than 60 mL/min/1.73 square meters End Stage Renal Disease: Less than 15 mL/min/1.73 square meters Performed By: #### B MP, GFR ####[place] [address] GFR >60 Normal [facility] ([place]) Comment on above: Result Comment: GFR Population mean for , Non- Americans Ages 20-29 = 116 mL/min/1.73 sq.m. Ages 30-39 = 107 mL/min/1.73 sq.m. Ages 40-49 = 99 mL/min/1.73 sq.m. Ages 50-59 = 93 mL/min/1.73 sq.m. Ages 60-69 = 85 mL/min/1.73 sq.m. Ages 70+ = 75 mL/min/1.73 sq.m. Chronic Kidney Disease: Less than 60 mL/min/1.73 square meters End Stage Renal Disease: Less than 15 mL/min/1.73 square meters Performed By: #### B MP, GFR ####[place] [address] BMPon 02-16-2019 Creatinine mass conc 0.92 mg/dL Normal 0.60-1.40 [facility] ([place] Comment on above: Performed By: #### B MP, GFR ####[place] [address] Urea nitrogen/Creatinine mass ratio 14.1 ratio Normal 10.0-22.0 [facility] ([place] Comment on above: Performed By: #### B MP, GFR ####[place] [address] Calcium mass conc 8.5 mg/dL Normal 8.4-10.1 [facility] ([place] Comment on above: Performed By: #### B MP, GFR ####[place] [address] Chloride molar conc 107 mmol/L Normal 98-110 [facility] ([place]) Comment on above: Performed By: #### B MP, GFR ####[place] [address] CO2 molar conc 28 mmol/L Normal 22-32 [facility] ([place] Comment on above: Performed By: #### B MP, GFR ####[place] [address] Electrolyte Balance 6.0 mEq/L Normal 4.0-15.0 [facility] ([place]) Comment on above: Performed By: #### B MP, GFR ####[place] [address] Glucose mass conc 82 mg/dL Normal 70-110 [facility] ([place] Comment on above: Performed By: #### B MP, GFR ####[place] [address] Potassium molar conc 3.8 mmol/L Normal 3.5-5.0 [facility] ([place] Comment on above: Performed By: #### B MP, GFR ####[place] [address] Sodium molar conc 141 mmol/L Normal 136-145 [facility] ([place] Comment on above: Performed By: #### B MP, GFR ####[place] [address] Urea nitrogen mass conc 13.0 mg/dL Normal 8.0-22.0 [facility] ([place] Comment on above: Performed By: #### B MP, GFR ####[place] [address] .Auto Diffon 02-15-2019 Ammonia mass conc (P) 0.70 10 3/mcL Normal 0.09-1.40 [facility] ([place]) Comment on above: Performed By: #### C BC, ADIFF, ANEU, CMP, GFR ####[place] [address] Basophils #/vol (Bld) 0.00 10 3/mcL Normal 0.00-0.27 [facility] ([place]) Comment on above: Performed By: #### C BC, ADIFF, ANEU, CMP, GFR ####[place] [address] Basophils/100 WBC (Bld) 0.4 % Normal 0.0-2.5 [facility] ([place] Comment on above: Performed By: #### C BC, ADIFF, ANEU, CMP, GFR ####[place] [address] Eosinophils #/vol (Bld) 0.10 10 3/mcL Normal 0.00-0.65 [facility] ([place]) Comment on above: Performed By: #### C BC, ADIFF, ANEU, CMP, GFR ####[place] [address] Eosinophils/100 WBC (Bld) 1.5 % Normal 0.0-6.0 [facility] ([place] Comment on above: Performed By: #### C BC, ADIFF, ANEU, CMP, GFR ####[place] [address] Lymphocytes #/vol (Bld) 2.00 10 3/mcL Normal 0.90-4.32 [facility] ([place] Comment on above: Performed By: #### C BC, ADIFF, ANEU, CMP, GFR ####[address] [address] Lymphocytes/100 WBC (Bld) 28.1 % Normal 20.0-40.0 [facility] ([place] Comment on above: Performed By: #### C BC, ADIFF, ANEU, CMP, GFR ####[address] [address] Monocytes/100 WBC (Bld) 10.0 % Normal 2.0-13.0 [facility] ([place] Comment on above: Performed By: #### C BC, ADIFF, ANEU, CMP, GFR ####[address] [address] Neutrophils/100 WBC (Bld) 60.0 % Normal 50.0-75.0 [facility] ([place] Comment on above: Performed By: #### C BC, ADIFF, ANEU, CMP, GFR ####[address] [address] Ammonia mass conc (P) 1.10 10 3/mcL Normal 0.09-1.40 [facility] ([place] Comment on above: Performed By: #### R FLU #### [address] [address] Basophils #/vol (Bld) 0.00 10 3/mcL Normal 0.00-0.27 [facility] ([place] Comment on above: Performed By: #### R FLU #### [address] [address] Basophils/100 WBC (Bld) 0.3 % Normal 0.0-2.5 [facility] ([place] Comment on above: Performed By: #### R FLU #### [address] [address] Eosinophils #/vol (Bld) 0.10 10 3/mcL Normal 0.00-0.65 [facility] ([place] Comment on above: Performed By: #### R FLU #### [address] [address] Eosinophils/100 WBC (Bld) 1.1 % Normal 0.0-6.0 [facility] ([place] Comment on above: Performed By: #### R FLU #### [address] [address] Lymphocytes #/vol (Bld) 2.30 10 3/mcL Normal 0.90-4.32 [facility] ([place] Comment on above: Performed By: #### R FLU #### [address] [address] Lymphocytes/100 WBC (Bld) 27.3 % Normal 20.0-40.0 [facility] ([place] Comment on above: Performed By: #### R FLU #### [address] [address] Monocytes/100 WBC (Bld) 13.3 % High 2.0-13.0 [facility] ([place] Comment on above: Performed By: #### R FLU #### [address] [address] Neutrophils/100 WBC (Bld) 58.0 % Normal 50.0-75.0 [facility] ([place] Comment on above: Performed By: #### R FLU #### [address] [address] .GFRon 02-15-2019 GFR >60 Normal [facility] ([place] Comment on above: Result Comment: GFR Population mean for , Non- Americans Ages 20-29 = 116 mL/min/1.73 sq.m. Ages 30-39 = 107 mL/min/1.73 sq.m. Ages 40-49 = 99 mL/min/1.73 sq.m. Ages 50-59 = 93 mL/min/1.73 sq.m. Ages 60-69 = 85 mL/min/1.73 sq.m. Ages 70+ = 75 mL/min/1.73 sq.m. Chronic Kidney Disease: Less than 60 mL/min/1.73 square meters End Stage Renal Disease: Less than 15 mL/min/1.73 square meters Performed By: #### C BC, ADIFF, ANEU, CMP, GFR ####[address] [address] GFR Non- >60 Normal [facility] ([place] Comment on above: Result Comment: GFR Population mean for , Non- Americans Ages 20-29 = 116 mL/min/1.73 sq.m. Ages 30-39 = 107 mL/min/1.73 sq.m. Ages 40-49 = 99 mL/min/1.73 sq.m. Ages 50-59 = 93 mL/min/1.73 sq.m. Ages 60-69 = 85 mL/min/1.73 sq.m. Ages 70+ = 75 mL/min/1.73 sq.m. Chronic Kidney Disease: Less than 60 mL/min/1.73 square meters End Stage Renal Disease: Less than 15 mL/min/1.73 square meters Performed By: #### C BC, ADIFF, ANEU, CMP, GFR ####[place] [address] .Morphon 02-15-2019 RBC morphology finding Nom (Bld) Normal Normal [facility] ([place] Comment on above: Performed By: #### R FLU #### [place] [address] Platelets #/vol (Bld) Normal Normal [facility] ([place]) Comment on above: Result Comment: Rare large platelet seen. Performed By: #### R FLU #### [place] [address] .NEUABSon 02-15-2019 Neutrophils #/vol (Bld) 4.30 10 3/mcL Normal 2.25-8.10 [facility] ([place] Comment on above: Performed By: #### C BC, ADIFF, ANEU, CMP, GFR ####[place] [address] Neutrophils #/vol (Bld) 4.80 10 3/mcL Normal 2.25-8.10 [facility] ([place] Comment on above: Performed By: #### P RO, MORPH, CBC, ADIFF, ANEU, A1C ####[address] [address] A1Con 02-15-2019 Hemoglobin A1c/Hemoglobin.total mass fraction (Bld) 5.4 % Normal 4.0-6.0 [facility] ([place] Comment on above: Performed By: #### P RO, MORPH, CBC, ADIFF, ANEU, A1C ####[place] [address] CBCon 02-15-2019 Erythrocyte distribution width Ratio (RBC) 13.3 % Normal 11.5-15.5 [facility] ([place] Comment on above: Performed By: #### C BC, ADIFF, ANEU, CMP, GFR ####[place] [address] Hematocrit Volume Fraction (Bld) 40.2 % Normal 40.0-52.0 [facility] ([place] Comment on above: Performed By: #### C BC, ADIFF, ANEU, CMP, GFR ####[place] [address] Hemoglobin mass conc (Bld) 14.0 G/dL Normal 13.0-17.5 [facility] ([place] Comment on above: Performed By: #### C BC, ADIFF, ANEU, CMP, GFR ####[place] [address] MCH Entitic mass (RBC) 31.8 pg Normal 27.0-33.0 [facility] ([place] Comment on above: Performed By: #### C BC, ADIFF, ANEU, CMP, GFR ####[place] [address] MCHC mass conc (RBC) 34.8 G/dL Normal 32.0-36.0 [facility] ([place] Comment on above: Performed By: #### C BC, ADIFF, ANEU, CMP, GFR ####[place] [address] MCV Entitic volume (RBC) 91.3 fL Normal 81.0-100.0 [facility] ([place] Comment on above: Performed By: #### C BC, ADIFF, ANEU, CMP, GFR ####[place] [address] Platelet mean volume Entitic volume (Bld) 11.1 fL High 6.4-10.5 [facility] ([place] Comment on above: Performed By: #### C BC, ADIFF, ANEU, CMP, GFR ####[address] [address] Platelets #/vol (Bld) 176 10 3/mcL Normal 150-450 A [facility] ([place]) Comment on above: Performed By: #### C BC, ADIFF, ANEU, CMP, GFR ####[place] [address] RBC #/vol (Bld) 4.40 10 6/mcL Low 4.50-6.00 [facility] ([place]) Comment on above: Performed By: #### C BC, ADIFF, ANEU, CMP, GFR ####[place] [address] WBC #/vol (Bld) 7.10 10 3/mcL Normal 4.50-10.80 [facility] ([place]) Comment on above: Performed By: #### C BC, ADIFF, ANEU, CMP, GFR ####[place] [address] Platelet mean volume Entitic volume (Bld) 10.9 fL High 6.4-10.5 [facility] ([place] Comment on above: Performed By: #### R FLU #### [place] [address] Platelets #/vol (Bld) 193 10 3/mcL Normal 150-450 [facility] ([place]) Comment on above: Performed By: #### R FLU #### [place] [address] Erythrocyte distribution width Ratio (RBC) 13.6 % Normal 11.5-15.5 [facility] ([place] Comment on above: Performed By: #### R FLU #### [place] [address] Hematocrit Volume Fraction (Bld) 41.8 % Normal 40.0-52.0 [facility] ([place] Comment on above: Performed By: #### R FLU #### [place] [address] Hemoglobin mass conc (Bld) 14.4 G/dL Normal 13.0-17.5 [facility] ([place] Comment on above: Performed By: #### R FLU #### [place] [address] MCH Entitic mass (RBC) 31.3 pg Normal 27.0-33.0 [facility] ([place] Comment on above: Performed By: #### R FLU #### [place] [address] MCHC mass conc (RBC) 34.4 G/dL Normal 32.0-36.0 [facility] ([place] Comment on above: Performed By: #### R FLU #### [place] [address] MCV Entitic volume (RBC) 91.0 fL Normal 81.0-100.0 [facility] ([place] Comment on above: Performed By: #### R FLU #### [place] [address] RBC #/vol (Bld) 4.60 10 6/mcL Normal 4.50-6.00 [facility] ([place] Comment on above: Performed By: #### R FLU #### [place] [address] WBC #/vol (Bld) 8.20 10 3/mcL Normal 4.50-10.80 [facility] ([place] Comment on above: Performed By: #### R FLU #### [place] [address] CMPon 02-15-2019 Albumin/Globulin mass ratio 1.1 {ratio} Normal 0.9-1.6 [facility] ([place] Comment on above: Performed By: #### C BC, ADIFF, ANEU, CMP, GFR ####[place] [address] ALP enzyme act/vol 77 U/L Normal 38-126 [facility] ([place] Comment on above: Performed By: #### C BC, ADIFF, ANEU, CMP, GFR ####[place] [address] Bili Total 0.5 mg/dL Normal 0.2-1.2 [facility] ([place] Comment on above: Performed By: #### C BC, ADIFF, ANEU, CMP, GFR ####[address] [address] Creatinine mass conc 1.03 mg/dL Normal 0.60-1.40 [facility] ([place] Comment on above: Performed By: #### C BC, ADIFF, ANEU, CMP, GFR ####[address] [address] Globulin mass conc (S) 3.2 G/dL Normal 1.5-3.8 [facility] ([place] Comment on above: Performed By: #### C BC, ADIFF, ANEU, CMP, GFR ####[address] [address] Protein mass conc 6.6 G/dL Normal 6.0-8.5 [facility] ([place] Comment on above: Performed By: #### C BC, ADIFF, ANEU, CMP, GFR ####[place] [address] Urea nitrogen/Creatinine mass ratio 12.6 ratio Normal 10.0-22.0 [facility] ([place] Comment on above: Performed By: #### C BC, ADIFF, ANEU, CMP, GFR ####[address] [address] Albumin mass conc 3.4 G/dL Normal 3.2-4.8 [facility] ([place] Comment on above: Performed By: #### C BC, ADIFF, ANEU, CMP, GFR ####[address] [address] ALT enzyme act/vol 27 U/L Normal 12-55 [facility] ([place] Comment on above: Performed By: #### C BC, ADIFF, ANEU, CMP, GFR ####[address] [address] AST enzyme act/vol 29 U/L Normal 8-34 [facility] ([place] Comment on above: Performed By: #### C BC, ADIFF, ANEU, CMP, GFR ####[address] [address] Calcium mass conc 8.5 mg/dL Normal 8.4-10.1 [facility] ([place] Comment on above: Performed By: #### C BC, ADIFF, ANEU, CMP, GFR ####[address] [address] Chloride molar conc 104 mmol/L Normal 98-110 [facility] ([place]) Comment on above: Performed By: #### C BC, ADIFF, ANEU, CMP, GFR ####[address] [address] CO2 molar conc 29 mmol/L Normal 22-32 [facility] ([place] Comment on above: Performed By: #### C BC, ADIFF, ANEU, CMP, GFR ####[address] [address] Electrolyte Balance 8.0 mEq/L Normal 4.0-15.0 [facility] ([place]) Comment on above: Performed By: #### C BC, ADIFF, ANEU, CMP, GFR ####[address] [address] Glucose mass conc 78 mg/dL Normal 70-110 [facility] ([place] Comment on above: Performed By: #### C BC, ADIFF, ANEU, CMP, GFR ####[address] [address] Potassium molar conc 3.8 mmol/L Normal 3.5-5.0 [facility] ([place] Comment on above: Performed By: #### C BC, ADIFF, ANEU, CMP, GFR ####[place] [address] Sodium molar conc 141 mmol/L Normal 136-145 [facility] ([place] Comment on above: Performed By: #### C BC, ADIFF, ANEU, CMP, GFR ####[address] [address] Urea nitrogen mass conc 13.0 mg/dL Normal 8.0-22.0 [facility] ([place] Comment on above: Performed By: #### C BC, ADIFF, ANEU, CMP, GFR ####[facility] [place] [address] MRA/MRI BRAIN W/O CONTRASTon 02-15-2019 MRA/MRI BRAIN W/O CONTRAST ORIGINAL MRA/MRI BRAIN W/O CONTRAST CLINICAL STATEMENT: cva. Syncopal episode yesterday COMPARISON: Head CT 02/14/2019 FINDINGS: MRI BRAIN: There are no foci of restricted diffusion. The ventricles are normal in size, shape, and position. There are a few scattered periventricular, subcortical, and deep white matter signal alterations, likely chronic ischemic small vessel disease. There is no large territory infarct, mass effect, or midline shift. Flow voids at the skull base are intact. There is mucosal thickening involving all visualized paranasal sinuses. There is near complete opacification of the frontal sinuses. Midline structures are intact. MRA BRAIN: 3-D [id number] magnetic resonance angiography of the brain was performed. Source and MIP images were reviewed. The [place] vessels are intact. There is no large vessel occlusion or aneurysm. There is an apparent trifurcation of A2 segments of the anterior cerebral artery. There is a origin of the LEFT posterior cerebral artery. IMPRESSION: 1. No evidence of acute infarct. A few nonspecific white matter foci, favor chronic ischemic small vessel disease. 2. The MRA of the brain is considered within normal limits. No large vessel occlusion. Interpreted By: Fadia Ro MD Preliminary Report By: Fadia Ro MD Electronically Signed By: Fadia Ro MD Dictated Date: 02/15/2019 1:32:10 PM Prelim Date: 02/15/2019 1:32:10 PM Sign Date: 02/15/2019 1:45:27 PM Normal [facility] ([place] PROon 02-15-2019 INR Coag RelTime (PPP) 1.2 {INR} Normal [facility] ([place] Comment on above: Result Comment: The [employer] (CHEST, 1992, [id number]) recommended therapeutic range for oral anticoagulant therapy is: LOW RISK: Prophylaxis of venous thrombosis INR: 2.0-3.0 Treatment of pulmonary embolism 2.0-3.0 Prevention of systemic embolism 2.0-3.0 HIGH RISK: Mechanical prosthetic valves 2.5-3.5 Performed By: #### R FLU #### [address] [address] Prothrombin time (PT) Coag time (PPP) 13.5 s Normal 9.0-14.6 [facility] ([place] Comment on above: Result Comment: Effe ctive 05/27/08, Protime results may be affected by some antibiotics (i.e. Ciprofloxacin, Azithromycin, Bactrim) which may potentiate the action of oral anticoagulants, with further increases in Protime/INR. Performed By: #### R FLU #### [address] [address] .GFRon 02-14-2019 GFR 62 ml/min/1.73sqm Normal [facility] ([place] Comment on above: Result Comment: GFR Population mean for , Non- Americans Ages 20-29 = 116 mL/min/1.73 sq.m. Ages 30-39 = 107 mL/min/1.73 sq.m. Ages 40-49 = 99 mL/min/1.73 sq.m. Ages 50-59 = 93 mL/min/1.73 sq.m. Ages 60-69 = 85 mL/min/1.73 sq.m. Ages 70+ = 75 mL/min/1.73 sq.m. Chronic Kidney Disease: Less than 60 mL/min/1.73 square meters End Stage Renal Disease: Less than 15 mL/min/1.73 square meters Performed By: #### C BC, PRO, APTT, DIFF, MORPH ####[facility] [place], [place] [address]#### TROP, BMP, ALC, GFR, BENIGNO, ACETA, PHENY, VALPR ####[address] [address] GFR Non- 52 ml/min/1.73sqm Normal [facility] ([place] Comment on above: Result Comment: GFR Population mean for , Non- Americans Ages 20-29 = 116 mL/min/1.73 sq.m. Ages 30-39 = 107 mL/min/1.73 sq.m. Ages 40-49 = 99 mL/min/1.73 sq.m. Ages 50-59 = 93 mL/min/1.73 sq.m. Ages 60-69 = 85 mL/min/1.73 sq.m. Ages 70+ = 75 mL/min/1.73 sq.m. Chronic Kidney Disease: Less than 60 mL/min/1.73 square meters End Stage Renal Disease: Less than 15 mL/min/1.73 square meters Performed By: #### C BC, PRO, APTT, DIFF, MORPH ####[place] [address]#### TROP, BMP, ALC, GFR, BENIGNO, ACETA, PHENY, VALPR ####[place] [address] .Manual Diffon 02-14-2019 Atypical Lymphs 24.0 % High 0.0-5.0 [facility] ([place] Comment on above: Performed By: #### C BC, PRO, APTT, DIFF, MORPH ####[place] [address]#### TROP, BMP, ALC, GFR, BENIGNO, ACETA, PHENY, VALPR ####[place] [address] Bands 1.0 % Normal 0.0-5.0 [facility] [facility] ([place] Comment on above: Performed By: #### C BC, PRO, APTT, DIFF, MORPH ####[place] [address]#### TROP, BMP, ALC, GFR, BENIGNO, ACETA, PHENY, VALPR ####[place] [address] Basophil %, Manual 1.0 % Normal 0.0-2.5 [facility] ([place]) Comment on above: Performed By: #### C BC, PRO, APTT, DIFF, MORPH ####[place] [address]#### TROP, BMP, ALC, GFR, BENIGNO, ACETA, PHENY, VALPR ####[place] [address] Basophil, Abs Manual 0.10 10 3/mcL Normal 0.00-0.19 A [facility] ([place]) Comment on above: Performed By: #### C BC, PRO, APTT, DIFF, MORPH ####[place] [address]#### TROP, BMP, ALC, GFR, BENIGNO, ACETA, PHENY, VALPR ####[address] [address] Eosinophil %, Manual 1.0 % Normal 0.0-7.0 [facility] ([place]) Comment on above: Performed By: #### C BC, PRO, APTT, DIFF, MORPH ####[place] [address]#### TROP, BMP, ALC, GFR, BENIGNO, ACETA, PHENY, VALPR ####[address] [address] Eosinophil, Abs Manual 0.10 10 3/mcL Normal 0.00-0.40 [facility] ([place] Comment on above: Performed By: #### C BC, PRO, APTT, DIFF, MORPH ####[place] [address]#### TROP, BMP, ALC, GFR, BENIGNO, ACETA, PHENY, VALPR ####[address] [address] Lymphocyte %, Manual 34.0 % Normal 10.0-50.0 [facility] ([place] Comment on above: Performed By: #### C BC, PRO, APTT, DIFF, MORPH ####[place] [address]#### TROP, BMP, ALC, GFR, BENIGNO, ACETA, PHENY, VALPR ####[address] [address] Lymphocyte, Abs Manual 7.40 10 3/mcL High 0.77-3.85 [facility] ([place] Comment on above: Performed By: #### C BC, PRO, APTT, DIFF, MORPH ####[place] [address]#### TROP, BMP, ALC, GFR, BENIGNO, ACETA, PHENY, VALPR ####[address] [address] Monocyte %, Manual 4.0 % Normal 1.7-13.0 [facility] ([place] Comment on above: Performed By: #### C BC, PRO, APTT, DIFF, MORPH ####[place] [address]#### TROP, BMP, ALC, GFR, BENIGNO, ACETA, PHENY, VALPR ####[place] [address] Monocyte, Abs Manual 0.50 10 3/mcL Normal 0.15-1.00 A [facility] ([place]) Comment on above: Performed By: #### C BC, PRO, APTT, DIFF, MORPH ####[place] [address]#### TROP, BMP, ALC, GFR, BENIGNO, ACETA, PHENY, VALPR ####[place] [address] Neutrophil %, Manual 35.0 % Low 37.0-80.0 [facility] ([place] Comment on above: Performed By: #### C BC, PRO, APTT, DIFF, MORPH ####[place] [address]#### TROP, BMP, ALC, GFR, BENIGNO, ACETA, PHENY, VALPR ####[place] [address] Neutrophil, Abs Manual 4.60 10 3/mcL Normal 2.85-6.16 [facility] ([place] Comment on above: Performed By: #### C BC, PRO, APTT, DIFF, MORPH ####[place] [address]#### TROP, BMP, ALC, GFR, BENIGNO, ACETA, PHENY, VALPR ####[place] [address] .Morphon 02-14-2019 Platelets #/vol (Bld) Normal Normal [facility] ([place]) Comment on above: Performed By: #### C BC, PRO, APTT, DIFF, MORPH ####[place] [address]#### TROP, BMP, ALC, GFR, BENIGNO, ACETA, PHENY, VALPR ####[place] [address] RBC morphology finding Nom (Bld) Normal Normal [facility] ([place] Comment on above: Performed By: #### C BC, PRO, APTT, DIFF, MORPH ####[place] [address]#### TROP, BMP, ALC, GFR, BENIGNO, ACETA, PHENY, VALPR ####[place] [address] .Urinalysis Microscopic (AO) on 02-14-2019 RBC #/vol (U) 15-25 None Seen [facility] ([place]) Comment on above: Performed By: #### U A, UAMICAO ####[place] [address]#### TOXSC ####[place] [address] UA Squam Epithelial None Seen Normal None Seen [facility] ([place]) Comment on above: Performed By: #### U A, UAMICAO ####[place] [address]#### TOXSC ####[place] [address] UA WBC None Seen Normal None Seen [facility] ([place]) Comment on above: Performed By: #### U A, UAMICAO ####[place] [address]#### TOXSC ####[place] [address] ACETAon 02-14-2019 Acetaminophen mass conc 0.0 mcg/mL Low 10.0-30.0 [facility] ([place] Comment on above: Performed By: #### C BC, PRO, APTT, DIFF, MORPH ####[place] [address]#### TROP, BMP, ALC, GFR, BENIGNO, ACETA, PHENY, VALPR ####[place] [address] Margarita 02-14-2019 Ethanol Level Not Detected Normal 0-3 [facility] ([place] Comment on above: Performed By: #### C BC, PRO, APTT, DIFF, MORPH #### [place] [address] #### TROP, BMP, ALC, GFR, BENIGNO, ACETA, PHENY, VALPR #### [place] [address] APTTon 02-14-2019 aPTT Coag time (Bld) 32.3 s Normal 24.4-35.6 [facility] ([place]) Comment on above: Result Comment: For Heparin anticoagulation therapy, the recommended therapeutic range is: 47.7-87.7 seconds (1.5 - 2.5 the normal plasma mean). Patients on heparin therapy may have an extreme result. Performed By: #### C BC, PRO, APTT, DIFF, MORPH ####[place] [address]#### TROP, BMP, ALC, GFR, BENIGNO, ACETA, PHENY, VALPR ####[place] [address] aPTT Coag time (Bld) Unknown Normal [facility] ([place] Comment on above: Performed By: #### C BC, PRO, APTT, DIFF, MORPH ####[place] [address]#### TROP, BMP, ALC, GFR, BENIGNO, ACETA, PHENY, VALPR ####[place] [address] BMPon 02-14-2019 Calcium mass conc 9.3 mg/dL Normal 8.4-10.2 [facility] ([place] Comment on above: Performed By: #### C BC, PRO, APTT, DIFF, MORPH #### [place] [id number] #### TROP, BMP, ALC, GFR, BENIGNO, ACETA, PHENY, VALPR #### [place] [address] Chloride molar conc 100 mmol/L Normal 98-107 [facility] ([place]) Comment on above: Performed By: #### C BC, PRO, APTT, DIFF, MORPH #### [place] [address] #### TROP, BMP, ALC, GFR, BENIGNO, ACETA, PHENY, VALPR #### [place] [address] CO2 molar conc 17 mmol/L Low 22-29 [facility] ([place]) Comment on above: Performed By: #### C BC, PRO, APTT, DIFF, MORPH #### [place] [address] #### TROP, BMP, ALC, GFR, BENIGNO, ACETA, PHENY, VALPR #### [place] [address] Creatinine mass conc 1.43 mg/dL High 0.70-1.30 [facility] ([place] Comment on above: Performed By: #### C BC, PRO, APTT, DIFF, MORPH #### [place] [address] #### TROP, BMP, ALC, GFR, BENIGNO, ACETA, PHENY, VALPR #### [place] [address] Electrolyte Balance 21.0 mEq/L Normal [facility] ([place]) Comment on above: Performed By: #### C BC, PRO, APTT, DIFF, MORPH #### [place] [address] #### TROP, BMP, ALC, GFR, BENIGNO, ACETA, PHENY, VALPR #### [place] [address] Glucose mass conc 119 mg/dL High 70-105 [facility] ([place] Comment on above: Performed By: #### C BC, PRO, APTT, DIFF, MORPH #### [place] [address] #### TROP, BMP, ALC, GFR, BENIGNO, ACETA, PHENY, VALPR #### [place] [address] Potassium molar conc 3.5 mmol/L Normal 3.5-5.1 [facility] ([place] Comment on above: Performed By: #### C BC, PRO, APTT, DIFF, MORPH #### [place] [address] #### TROP, BMP, ALC, GFR, BENIGNO, ACETA, PHENY, VALPR #### [place] [address] Sodium molar conc 138 mmol/L Normal 136-145 [facility] ([place] Comment on above: Performed By: #### C BC, PRO, APTT, DIFF, MORPH #### [place] [address] #### TROP, BMP, ALC, GFR, BENIGNO, ACETA, PHENY, VALPR #### [place] [address] Urea nitrogen mass conc 17 mg/dL Normal 7-18 [facility] ([place] Comment on above: Performed By: #### C BC, PRO, APTT, DIFF, MORPH #### [place] [address] #### TROP, BMP, ALC, GFR, BENIGNO, ACETA, PHENY, VALPR #### [place] [address] Urea nitrogen/Creatinine mass ratio 12 ratio Normal 7-27 [facility] ([place] Comment on above: Performed By: #### C BC, PRO, APTT, DIFF, MORPH #### [place] [address] #### TROP, BMP, ALC, GFR, BENIGNO, ACETA, PHENY, VALPR #### [place] [id number] CBCon 02-14-2019 Erythrocyte distribution width Ratio (RBC) 13.3 % Normal 11.5-14.5 [facility] ([place] Comment on above: Performed By: #### C BC, PRO, APTT, DIFF, MORPH #### [place] [address] #### TROP, BMP, ALC, GFR, BENIGNO, ACETA, PHENY, VALPR #### [place] [address] Hematocrit Volume Fraction (Bld) 48.0 % Normal 42.0-52.0 [facility] ([place] Comment on above: Performed By: #### C BC, PRO, APTT, DIFF, MORPH #### [place] [address] #### TROP, BMP, ALC, GFR, BENIGNO, ACETA, PHENY, VALPR #### [place] [address] Hemoglobin mass conc (Bld) 15.9 G/dL Normal 14.0-18.0 [facility] ([place] Comment on above: Performed By: #### C BC, PRO, APTT, DIFF, MORPH #### [place] [address] #### TROP, BMP, ALC, GFR, BENIGNO, ACETA, PHENY, VALPR #### [place] [address] MCH Entitic mass (RBC) 31.1 pg Normal 27.0-31.2 [facility] ([place]) Comment on above: Performed By: #### C BC, PRO, APTT, DIFF, MORPH #### [place] [address] #### TROP, BMP, ALC, GFR, BENIGNO, ACETA, PHENY, VALPR #### [place] [address] MCHC mass conc (RBC) 33.2 G/dL Normal 31.8-35.4 [facility] ([place] Comment on above: Performed By: #### C BC, PRO, APTT, DIFF, MORPH #### [place] [address] #### TROP, BMP, ALC, GFR, BENIGNO, ACETA, PHENY, VALPR #### [place] [address] MCV Entitic volume (RBC) 93.7 fL Normal 80.0-94.0 [facility] ([place] Comment on above: Performed By: #### C BC, PRO, APTT, DIFF, MORPH #### [place] [address] #### TROP, BMP, ALC, GFR, BENIGNO, ACETA, PHENY, VALPR #### [place] [address] Platelet mean volume Entitic volume (Bld) 11.1 fL High 7.4-10.4 [facility] ([place] Comment on above: Performed By: #### C BC, PRO, APTT, DIFF, MORPH #### [place] [address] #### TROP, BMP, ALC, GFR, BENIGNO, ACETA, PHENY, VALPR #### [place] [address] Platelets #/vol (Bld) 269 10 3/mcL Normal 130-400 A [facility] ([place]) Comment on above: Performed By: #### C BC, PRO, APTT, DIFF, MORPH #### [place] [address] #### TROP, BMP, ALC, GFR, BENIGNO, ACETA, PHENY, VALPR #### [place] [address] RBC #/vol (Bld) 5.12 10 6/mcL Normal 4.04-6.13 [facility] ([place] Comment on above: Performed By: #### C BC, PRO, APTT, DIFF, MORPH #### [place] [address] #### TROP, BMP, ALC, GFR, BENIGNO, ACETA, PHENY, VALPR #### [place] [address] WBC #/vol (Bld) 12.70 10 3/mcL High 4.60-10.80 [facility] ([place]) Comment on above: Performed By: #### C BC, PRO, APTT, DIFF, MORPH #### Erlinda [address]ms [address] [place], [place] [address] #### TROP, BMP, ALC, GFR, BENIGNO, ACETA, PHENY, VALPR #### [facility] [address] [place] [id number] ABD/PELVIS W/ IV CONTRAST ONLYon 02-14-2019 CT ABD/PELVIS W/ IV CONTRAST ONLY ORIGINAL CT ABD/PELVIS W/ IV CONTRAST ONLY CLINICAL STATEMENT: pain; trauma patient COMPARISON: None FINDINGS:Examination was performed following IV contrast material., Most imaging due to the patient's upper extremities resulting in artifact is noted. Images through the lung bases will be detailed in a separate dictation. There is partial visualization of a low-density rounded soft tissue focus 2.6 cm in size in the cardiophrenic angle on the RIGHT which can be further detailed on the CT thorax dictation. The liver is poorly evaluated with respect to the cortex due to significant artifact from the patient's upper extremities. This significantly compresses sensitivity for any possible acute lacerations or other pathology. The gallbladder is present with at least one partially calcified gallstone. The spleen likewise is poorly evaluated due to artifact from the patient's upper extremities. A discrete lesion within the splenic parenchyma cannot be excluded. The pancreas is grossly unremarkable. Adrenal glands and kidneys reveal no obvious contributory findings. Once again, evaluation of the renal cortices is limited by artifact. There is at least one pedunculated cyst is suspected extending off the inferior pole of the RIGHT kidney. No obvious intrarenal collecting system dilatation is noted. There is no disproportionate bowel dilatation to suggest a focal obstruction. Gaseous distention of the stomach is noted. No obvious upper abdominal ascites is present. The appendix is well visualized and appears normal. There is no free fluid in the pelvis. Viramontes balloon catheter is in place with bladder is collapsed there is small amount of air in the bladder is noted. No pathologically enlarged pelvic lymph nodes are identified. There are mild degenerative changes present in the spine. T11 hemangioma is suspected. There is no obvious compression deformity. Small bone islands are present within the pelvis. IMPRESSION:Severely comprised imaging due to artifact. No definite acute abdominal or pelvic process is confirmed. There are incidental findings as detailed above. This exam was performed according to our departmental dose optimization program, and includes the following measures where applicable: automated exposure control, adjustment of the mAs and/or kVp according to patient size and/or exam, and an iterative reconstruction algorithm. Interpreted By: Charlene Yeh MD Preliminary Report By: Charlene Yeh MD Electronically Signed By: Charlene Yeh MD Dictated Date: 02/14/2019 12:57:24 PM Prelim Date: 02/14/2019 12:57:24 PM Sign Date: 02/14/2019 1:02:12 PM Normal [facility] ([place]) CT HEAD OR BRAIN W/O CONTRAS Ton 02-14-2019 CT HEAD OR BRAIN W/O CONTRAST ORIGINAL CT HEAD OR BRAIN W/O CONTRAST CLINICAL STATEMENT: pain; trauma patient. TECHNIQUE: Axial CT images from skull base to vertex without IV contrast. This exam was performed according to our departmental dose optimization program, and includes the following measures where applicable: automated exposure control, adjustment of the mAs and/or kVp according to patient size and/or exam, and an iterative reconstruction algorithm. COMPARISON: None. FINDINGS: There is no acute intracranial hemorrhage, mass, mass effect or abnormal extra-axial fluid collection. There is no CT evidence of acute infarct. The ventricles are normal. Patchy white matter hypodensities are nonspecific may represent mild chronic microvascular angiopathy. The skull base and calvarium demonstrate no acute abnormality. CT maxillofacial dictated separately. Patient is status post LEFT mastoidectomy. The RIGHT mastoid air cells are clear. IMPRESSION: No acute intracranial abnormality. Interpreted By: Lourdes Duenas MD Preliminary Report By: Lourdes Duenas MD Electronically Signed By: Lourdes Duenas MD Dictated Date: 02/14/2019 12:50:40 PM Prelim Date: 02/14/2019 12:50:40 PM Sign Date: 02/14/2019 12:53:59 PM Normal [facility] ([place]) CT MAXILLOFACIAL W/O CONTRAS Ton 02-14-2019 CT MAXILLOFACIAL W/O CONTRAST ORIGINAL CT MAXILLOFACIAL W/O CONTRAST CLINICAL STATEMENT: pain; trauma patient. TECHNIQUE: Multiple-row detector helical CT examination of the facial bones without IV contrast. Axial, sagittal, and coronal reconstructed images. This exam was performed according to our departmental dose optimization program, and includes the following measures where applicable: automated exposure control, adjustment of the mAs and/or kVp according to patient size and/or exam, and an iterative reconstruction algorithm. COMPARISON: None. FINDINGS: The facial bones including the mandible demonstrate no fracture or dislocation, and no evidence of destructive osseous lesions. A nonspecific sclerotic lesion is shown in the RIGHT mandibular condyle, potentially a bone island. LEFT mastoidectomy seen with soft tissue density in the mastoid bowl. There is near complete opacification of the RIGHT frontal sinus which crosses midline. The hypoplastic LEFT frontal sinus is clear. Moderate mucosal thickening is seen in the ethmoid air cells and sphenoid sinuses. There is mild mucosal thickening in the maxillary sinuses. No air-fluid levels in the paranasal sinuses. The globes demonstrate no acute traumatic abnormality. The extraocular muscles, intraconal fat, and extraconal fat are within normal limits. No destructive lesion of the visualized skull base or calvarium is present. There is poor dilatation. A small periapical lucency is seen surrounding the LEFT mandibular posterior molar which demonstrates a large cavity. Other cavities identified. Periapical lucency with cortical breakthrough seen of the RIGHT maxillary incisor which has been previously treated by root canal. IMPRESSION: 1. No maxillofacial fracture or intraorbital hematoma. 2. Paranasal sinus disease. Interpreted By: Lourdes Duenas MD Preliminary Report By: Lourdes Duenas MD Electronically Signed By: Lourdes Duenas MD Dictated Date: 02/14/2019 1:01:25 PM Prelim Date: 02/14/2019 1:01:25 PM Sign Date: 02/14/2019 1:08:56 PM Normal [facility] ([place]) CT SPINE CERVICAL W/O CONTRA Lolly 02-14-2019 CT SPINE CERVICAL W/O CONTRAST ORIGINAL CT SPINE CERVICAL W/O CONTRAST CLINICAL STATEMENT: pain; trauma patient TECHNIQUE: Multiple-row detector helical CT examination of the cervical spine without IV contrast. Axial, sagittal, and coronal reconstructed images. This exam was performed according to our departmental dose optimization program, and includes the following measures where applicable: automated exposure control, adjustment of the mAs and/or kVp according to patient size and/or exam, and an iterative reconstruction algorithm. COMPARISON: None. FINDINGS: No fracture or traumatic malalignment. Straightening of the cervical spine may be positional or related to spasm. Vertebral body heights are maintained. No destructive osseous lesions are identified. Nonspecific sclerotic lesions seen in the LEFT aspect of C2. Multilevel degenerative changes are identified in the spine most significant at C6-C7. The prevertebral and paraspinal soft tissues demonstrate no acute abnormality. LEFT mastoidectomy with soft tissue density in the mastoid bowl. A nonspecific sclerotic lesion in the RIGHT mandibular condyle is noted. Small RIGHT laryngocele seen. IMPRESSION: No acute fracture or traumatic malalignment. Straightening of the cervical spine may be positional or related to spasm. Interpreted By: Lourdes Duenas MD Preliminary Report By: Lourdes Duenas MD Electronically Signed By: Lourdes Duenas MD Dictated Date: 02/14/2019 12:55:27 PM Prelim Date: 02/14/2019 12:55:27 PM Sign Date: 02/14/2019 12:59:28 PM Normal [facility] ([place]) CT THORAX W/ CONTRASTon 04-0 CT THORAX W/ CONTRAST ORIGINAL CT THORAX W/ CONTRAST CLINICAL STATEMENT: pain; trauma patient - suspect aortic rupture, pulmonary trauma TECHNIQUE: Multiple-row detector helical CT examination of the thorax with IV contrast. Axial and coronal reconstructed images. This exam was performed according to our departmental dose optimization program, and includes the following measures where applicable: automated exposure control, adjustment of the mAs and/or kVp according to patient size and/or exam, and an iterative reconstruction algorithm. COMPARISON: Chest x-ray 01/07/2019 FINDINGS: Evaluation is compromised by streak artifact from the patient's arms in the [id number]. The visualized thyroid gland is unremarkable. The heart is not enlarged. No pericardial effusion. The aorta is intact. No axillary, mediastinal, or hilar adenopathy. CT abdomen pelvis dictated separately. The trachea and mainstem bronchi are patent. There are minimal dependent atelectatic changes at the bases bilaterally. No effusion or pneumothorax seen. There is mild airspace disease at the LEFT apex and in the lateral LEFT lower lobe Degenerative changes are present in the spine. Vertebral bodies are maintained in height and alignment. Mild degenerative changes seen in the spine. No acute fractures identified. IMPRESSION: Minimal airspace disease at the LEFT apex and lateral LEFT lower lobe may reflect small areas of pneumonia or, given history of trauma, contusions. Follow-up recommended. Interpreted By: Lourdes Duenas MD Preliminary Report By: Lourdes Duenas MD Electronically Signed By: Lourdes Duenas MD Dictated Date: 02/14/2019 1:12:37 PM Prelim Date: 02/14/2019 1:12:37 PM Sign Date: 02/14/2019 1:17:59 PM Normal [facility] ([place]) PHENYon 02-14-2019 LDose Phenytoin: See eMAR Normal [facility] ([place]) Comment on above: Performed By: #### C BC, PRO, APTT, DIFF, MORPH ####[place] [address]#### TROP, BMP, ALC, GFR, BENIGNO, ACETA, PHENY, VALPR ####[place] [address] Phenytoin Level <0.5 Low 10.0-20.0 [facility] ([place] Comment on above: Performed By: #### C BC, PRO, APTT, DIFF, MORPH ####[place] [address]#### TROP, BMP, ALC, GFR, BENIGNO, ACETA, PHENY, VALPR ####[place] [address] PROon 02-14-2019 INR Coag RelTime (PPP) 1.2 {INR} Normal 0.9-1.2 [facility] ([place]) Comment on above: Result Comment: Jason dard Dose 2.0 - 3.0 High Dose 2.5 - 3.5 The recommended therapeutic range for oral anticoagulant therapy is: LOW RISK: Prophylaxis of venous thrombosis INR: 2.0 - 3.0 Treatment of pulmonary embolism 2.0 - 3.0 Prevention of systemic embolism 2.0 - 3.0 HIGH RISK: Mechanical prosthetic valves 2.5 - 3.5 Performed By: #### C BC, PRO, APTT, DIFF, MORPH #### [place] [address] #### TROP, BMP, ALC, GFR, BENIGNO, ACETA, PHENY, VALPR #### [place] [address] Prothrombin time (PT) Coag time (PPP) 12.5 s Normal 9.3-14.6 [facility] ([place] Comment on above: Performed By: #### C BC, PRO, APTT, DIFF, MORPH #### [place] [id number] [place], [place] [address] #### TROP, BMP, ALC, GFR, BENIGNO, ACETA, PHENY, VALPR #### [address] [address] SALon 02-14-2019 Salicylate Level 1.7 mg/dL Low 2.8-20.0 [facility] ([place] Comment on above: Performed By: #### C BC, PRO, APTT, DIFF, MORPH ####[place] [address]#### TROP, BMP, ALC, GFR, BENIGNO, ACETA, PHENY, VALPR ####[address] [address] TOXSCon 02-14-2019 QC TOXSC Valid [facility] ([place]) Comment on above: Performed By: #### R FLU #### [address] [address] U Ampheta (AO) Negative [facility] ([place] Comment on above: Performed By: #### R FLU #### [address] [address] U Adrianna (AO) Negative [facility] ([place] Comment on above: Performed By: #### R FLU #### [address] [address] U Jaren (AO) Negative [facility] ([place] Comment on above: Performed By: #### R FLU #### [address] [address] U Cannab (AO) Negative [facility] ([place] Comment on above: Performed By: #### R FLU #### [address] [address] U Cocaine (AO) Negative [facility] ([place] Comment on above: Performed By: #### R FLU #### [address] [address] U Methadone (AO) Negative Normal [facility] ([place] Comment on above: Performed By: #### R FLU #### [address] [address] U PCP (AO) Negative Normal [facility] ([place] Comment on above: Performed By: #### R FLU #### [place] [id number] U TCA (AO) Negative Normal [facility] ([place] Comment on above: Performed By: #### R FLU #### [place] [address] Urine Opiates (AO) Negative [facility] ([place]) Comment on above: Performed By: #### R FLU #### [place] [address] TROPon 02-14-2019 Troponin I.cardiac mass conc ng/mL Normal 0.000-0.040 [facility] ([place] Comment on above: Result Comment: Trop onin I reference range: 0.00-0.040 ng/mL Negative and non-diagnostic. >0.040 ng/mL Consistent with cardiac damage, increased clinical risk and possibility of myocardial infarction. Serial measurements, a rise & fall in test results, clinical history, appropriate symptoms and/or ECG changes may help assess possibility of RI. *Other non-acute coronary syndrome conditions such as CHF, myocarditis, pulmonary emboli, sepsis and cardiac surgery could result in myocardial damage and increased troponin levels. Performed By: #### C BC, PRO, APTT, DIFF, MORPH #### [address] [address] #### TROP, BMP, ALC, GFR, BENIGNO, ACETA, PHENY, VALPR #### [place] [address] UAon 02-14-2019 Color Nom (U) Yellow Normal [facility] ([place] Comment on above: Performed By: #### U A, UAMICAO ####[place] [address]#### TOXSC ####[place] [address] Glucose mass conc (U) Negative Normal Negative [facility] ([place]) Comment on above: Performed By: #### U A, UAMICAO ####[place] [address]#### TOXSC ####[place] [address] Ketones Ql (U) Negative Normal Negative [facility] ([place]) Comment on above: Performed By: #### U A, UAMICAO ####[place] [address]#### TOXSC ####[place] [address] UA Appear Clear Normal Clear [facility] ([place]) Comment on above: Performed By: #### U A, UAMICAO ####[place] [address]#### TOXSC ####[place] [address] UA Blood Moderate Negative [facility] ([place] Comment on above: Performed By: #### U A, UAMICAO ####[place] [address]#### TOXSC ####[place] [address] UA Leuk Est Negative Normal Negative [facility] ([place] Comment on above: Performed By: #### U A, UAMICAO ####[place] [address]#### TOXSC ####[place] [address] UA Nitrite Negative Normal Negative [facility] ([place] Comment on above: Performed By: #### U A, UAMICAO ####[place] [address]#### TOXSC ####[place] [address] UA pH 5.0 Normal 5.0 - 8.0 [facility] ([place] Comment on above: Performed By: #### U A, UAMICAO ####[place] [address]#### TOXSC ####[place] [address] UA Protein 100 mg/dL Negative [facility] ([place] Comment on above: Performed By: #### U A, UAMICAO ####[place] [address]#### TOXSC ####[place] [address] UA Spec Grav >=1.030 1.015-1.025 [facility] ([place] Comment on above: Performed By: #### U A, UAMICAO ####[place] [address]#### TOXSC ####[place] [address] UA Specimen Type Catheter Normal [facility] ([place] Comment on above: Performed By: #### U A, UAMICAO ####[place] [address]#### TOXSC ####[place] [address] UA Urobilinogen 0.2 E.U./dL Normal 0.2-1.0 [facility] ([place] Comment on above: Performed By: #### U A, UAMICAO ####[place] [address]#### TOXSC ####[place] [address] Urobilinogen Qn (U) Negative Normal Negative [facility] ([place]) Comment on above: Performed By: #### U A, UAMICAO ####[place] [address]#### TOXSC ####[place] [id number] [place] [address] VALPRon 02-14-2019 Protein mass conc See eMAR Normal [facility] ([place]) Comment on above: Performed By: #### C BC, PRO, APTT, DIFF, MORPH ####[place] [address] [place], [place] [address]#### TROP, BMP, ALC, GFR, BENIGNO, ACETA, PHENY, VALPR ####[place] [address] Protein mass conc g/dL Low 50-100 [facility] ([place]) Comment on above: Performed By: #### C BC, PRO, APTT, DIFF, MORPH ####[place] [address] [address]#### TROP, BMP, ALC, GFR, BENIGNO, ACETA, PHENY, VALPR ####[place] [address] RESPIDon 01-07-2019 Adenovirus Not Detected Normal Not Detected [facility] ([place]) Comment on above: Order Comment: Order added by [email or web address] Performed By: #### R ESPID #### [place] [address] Bordetella Parapertussis Not Detected Normal Not Detected [facility] ([place]) Comment on above: Order Comment: Order added by [email or web address] Performed By: #### R ESPID #### [place] [address] Bordetella Pertussis Not Detected Normal Not Detected [facility] ([place]) Comment on above: Order Comment: Order added by [email or web address] Performed By: #### R ESPID #### [place] [address] Chlamydophila pneumoniae Not Detected Normal Not Detected [facility] ([place] Comment on above: Order Comment: Order added by [email or web address] Performed By: #### R ESPID #### [place] [address] Coronavirus 229E Not Detected Normal Not Detected [facility] ([place] Comment on above: Order Comment: Order added by [email or web address] Performed By: #### R ESPID #### [place] [address] Coronavirus HKU1 Not Detected Normal Not Detected [facility] ([place] Comment on above: Order Comment: Order added by [email or web address] Performed By: #### R ESPID #### [place] [address] Coronavirus NL63 Not Detected Normal Not Detected [facility] ([place] Comment on above: Order Comment: Order added by [email or web address] Performed By: #### R ESPID #### [place] [id number] Coronavirus OC43 Not Detected Normal Not Detected [facility] ([place] Comment on above: Order Comment: Order added by [email or web address] Performed By: #### R ESPID #### [place] [address] Human Metapneumovirus Not Detected Normal Not Detected [facility] ([place]) Comment on above: Order Comment: Order added by [email or web address] Performed By: #### R ESPID #### [place] [id number] Influenza A H3 Detected Not Detected [facility] ([place]) Comment on above: Order Comment: Order added by [email or web address] Result Comment: This organism causes a reportable disease. Infection Control has been notified. Results have been reported to the [facility] [place] [facility]. Performed By: #### R ESPID #### [place] [id number] Influenza B Not Detected Normal Not Detected [facility] ([place]) Comment on above: Order Comment: Order added by [email or web address] Performed By: #### R ESPID #### [place] [id number] Mycoplasma pneumoniae Not Detected Normal Not Detected [facility] ([place]) Comment on above: Order Comment: Order added by [email or web address] Performed By: #### R ESPID #### [facility] [address] [place], [place] [address] Parainfluenza 1 Not Detected Normal Not Detected [facility] ([place] Comment on above: Order Comment: Order added by [email or web address] Performed By: #### R ESPID #### [place] [address] Parainfluenza 2 Not Detected Normal Not Detected [facility] ([place] Comment on above: Order Comment: Order added by [email or web address] Performed By: #### R ESPID #### [place] [address] Parainfluenza 3 Not Detected Normal Not Detected [facility] ([place] Comment on above: Order Comment: Order added by [email or web address] Performed By: #### R ESPID #### [place] [address] Parainfluenza 4 Not Detected Normal Not Detected [facility] ([place] Comment on above: Order Comment: Order added by [email or web address] Performed By: #### R ESPID #### [place] [address] Respiratory Syncytial Virus Not Detected Normal Not Detected [facility] ([place] Comment on above: Order Comment: Order added by [email or web address] Performed By: #### R ESPID #### [place] [address] Rhinovirus/Enterovirus Not Detected Normal Not Detected [facility] ([place] Comment on above: Order Comment: Order added by [email or web address] Performed By: #### R ESPID #### [place] [address] RFLUon 01-07-2019 RFLU . 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 . Specimen is negative for the presence of influenza B antigen. . Inadequate specimen collection, improper sample handling and/or low levels of viral shedding may yield a false-negative result. . The optimal specimen type for the Rapid Flu test is a nasopharyngeal wash/aspirate or nasopharyngeal swab. All negative rapid tests for Flu A and Flu B will be confirmed with a Respiratory Id Panel by PCR. . Assay method employs immunofluorescence technology. Performing Locations *1: This test was performed at: [address], [address] [place] [address] ([place] Comment on above: Performed By: #### R FLU #### [place] [address] XR CHEST 2 VIEWSon 9 XR CHEST 2 VIEWS ORIGINAL XR CHEST 2 VIEWS Clinical Statement: SOB/Cough/Fever. COMPARISON: 01/07/2019 FINDINGS: There is no focal consolidation. No pleural fluid or pneumothorax. The cardiomediastinal silhouette is within normal limits. There is no visible acute rib fracture or aggressive osseous lesion. IMPRESSION: No acute cardiopulmonary abnormality. Interpreted By: Cesar Knight Preliminary Report By: Cesar Knight Electronically Signed By: Cesar Knight Dictated Date: 01/07/2019 4:05:13 AM Prelim Date: 01/07/2019 4:05:13 AM Sign Date: 01/07/2019 4:07:19 AM [facility] ([place] XR SHOULDER MINIMUM 2 VIEWS LEFTon 09-11-2018 XR SHOULDER MINIMUM 2 VIEWS LEFT ORIGINAL XR SHOULDER MINIMUM 2 VIEWS LEFT CLINICAL STATEMENT: pain. COMPARISON: None FINDINGS: No fracture or dislocation is identified. The included thoracic structures are normal. The acromioclavicular joint is normal. IMPRESSION: No acute fracture or dislocation. Interpreted By: Manolo Dhillon MD Preliminary Report By: Manolo Dhillon MD Electronically Signed By: Manolo Dhillon MD Dictated Date: 09/11/2018 1:17:55 AM Prelim Date: 09/11/2018 1:17:55 AM Sign Date: 09/11/2018 1:18:08 AM Normal [facility] ([place] XR CHEST 2 VIEWSon 8 XR CHEST 2 VIEWS ORIGINAL Chest 2 views HISTORY: Chest pain, shortness of breath COMPARISON: None The heart and pulmonary vessels are normal. The lungs are clear and there is no pleural fluid seen. There are minor degenerative changes noted in the spine. IMPRESSION: No acute process. Interpreted By: Cesar Hobbs MD Preliminary Report By: Cesar Hobbs MD Electronically Signed By: Cesar Hobbs MD Dictated Date: 03/12/2018 5:25:05 PM Prelim Date: 03/12/2018 5:25:05 PM Sign Date: 03/12/2018 5:25:26 PM Normal [facility] ([place]) Vital Signs Date Time Vital Sign Value Performing Clinician Facility 07-23-2025 11:00-0400 Body height 175 cm Ruthie Wattley ART MANAGER-VOLLEYBALL REFEREE Work Phone: [facility] 07-23-2025 11:00-0400 Body height 175.26 cm Ruthie Wattley ART MANAGER-VOLLEYBALL REFEREE Work Phone: [facility] 07-23-2025 11:00-0400 Body mass index (BMI) [Ratio] 53.06 kg/m2 Ruthie Wattley ART MANAGER-VOLLEYBALL REFEREE Work Phone: [facility] 07-23-2025 11:00-0400 Body weight 163 kg Ruthie Wattley ART MANAGER-VOLLEYBALL REFEREE Work Phone: [facility] 07-23-2025 11:00-0400 Body weight 162.39 kg Ruthie Wattley ART MANAGER-VOLLEYBALL REFEREE Work Phone: [facility] 07-23-2025 11:00-0400 BP SITE #1 Ruthie Wattley ART MANAGER-VOLLEYBALL REFEREE Work Phone: [facility] 07-23-2025 11:00-0400 Diastolic blood pressure 63 mm[Hg] Ruthie Wattley ART MANAGER-VOLLEYBALL REFEREE Work Phone: [facility] 07-23-2025 11:00-0400 HGHTCHNVIS Ruthie Manriquez ART MANAGER-[employer]LEY[employer] REFEREE Work Phone: [facility] 07-23-2025 11:00-0400 Systolic blood pressure 114 mm[Hg] Ruthie Manriquez ART MANAGER-VOLLEYBALL REFEREE Work Phone: [facility] 07-23-2025 11:00-0400 VITALSDONE Ruthie Manriquez ART MANAGER-[employer]LEYB[employer] REFEREE Work Phone: [facility] 12-16-2024 13:29-0500 Body mass index (BMI) [Ratio] 51.76 kg/m2 Pura Leon ART MANAGER.MAINTENANCE PERSON Work Phone: [facility] 12-16-2024 13:29-0500 Body weight 159 kg Pura Leon ART MANAGER.MAINTENANCE PERSON Work Phone: [facility] 12-16-2024 13:29-0500 Diastolic blood pressure 72 mm[Hg] Pura Leon ART MANAGER.MAINTENANCE PERSON Work Phone: [facility] 12-16-2024 13:29-0500 Heart rate 99 /min Pura Leon ART MANAGER.MAINTENANCE PERSON Work Phone: [facility] 12-16-2024 13:29-0500 Respiratory rate 16 /min Pura Leon ART MANAGER.MAINTENANCE PERSON Work Phone: [facility] 12-16-2024 13:29-0500 Systolic blood pressure 115 mm[Hg] Pura Leon ART MANAGER.MAINTENANCE PERSON Work Phone: [facility] 10-15-2024 14:56-0500 Body mass index (BMI) [Ratio] 51.5 kg/m2 Pura Leon ART MANAGER.MAINTENANCE PERSON Work Phone: [facility] 10-15-2024 14:56-0500 Body weight 158.2 kg Pura Leon ART MANAGER.MAINTENANCE PERSON Work Phone: [facility] 10-15-2024 14:56-0500 Diastolic blood pressure 71 mm[Hg] Pura Leon ART MANAGER.MAINTENANCE PERSON Work Phone: [facility] 10-15-2024 14:56-0500 Heart rate 99 /min Pura Leon ART MANAGER.MAINTENANCE PERSON Work Phone: [facility] 10-15-2024 14:56-0500 Respiratory rate 16 /min Pura Leon ART MANAGER.MAINTENANCE PERSON Work Phone: [facility] 10-15-2024 14:56-0500 SaO2% (BldA) [Mass fraction] 94 % Pura Leon ART MANAGER.MAINTENANCE PERSON Work Phone: [facility] 10-15-2024 14:56-0500 Systolic blood pressure 122 mm[Hg] Pura Leon ART MANAGER.MAINTENANCE PERSON Work Phone: [facility] 09-03-2024 15:00-0400 Body height 175.3 cm Mya Zully ART MANAGER.VOLLEYBALL REFEREE Work Phone: [facility] 09-03-2024 15:00-0400 Body mass index (BMI) [Ratio] 50.92 kg/m2 Mya Zully ART MANAGER.VOLLEYBALL REFEREE Work Phone: [facility] 09-03-2024 15:00-0400 Body weight 156.4 kg Mya Zully ART MANAGER.VOLLEYBALL REFEREE Work Phone: [facility] 09-03-2024 15:00-0400 Diastolic blood pressure 84 mm[Hg] Mya Zully ART MANAGER.VOLLEYBALL REFEREE Work Phone: [facility] 09-03-2024 15:00-0400 Heart rate 86 /min Mya Zully ART MANAGER.VOLLEYBALL REFEREE Work Phone: [facility] 09-03-2024 15:00-0400 Respiratory rate 20 /min Mya Zully ART MANAGER.VOLLEYBALL REFEREE Work Phone: [facility] 09-03-2024 15:00-0400 Systolic blood pressure 138 mm[Hg] Mya Zully ART MANAGER.VOLLEYBALL REFEREE Work Phone: [facility] 06-17-2024 14:03-0400 Body mass index (BMI) [Ratio] 50.4 kg/m2 Perri Green ART MANAGER.VOLLEYBALL REFEREE Work Phone: [facility] 06-17-2024 14:03-0400 Body temperature 97.7 [degF] Perri Green ART MANAGER.VOLLEYBALL REFEREE Work Phone: [facility] 06-17-2024 14:03-0400 Body weight 154.8 kg Perri Green ART MANAGER.VOLLEYBALL REFEREE Work Phone: [facility] 06-17-2024 14:03-0400 Diastolic blood pressure 80 mm[Hg] Perri Green ART MANAGER.VOLLEYBALL REFEREE Work Phone: [facility] 06-17-2024 14:03-0400 Heart rate 106 /min Perri Green ART MANAGER.VOLLEYBALL REFEREE Work Phone: [facility] 06-17-2024 14:03-0400 Respiratory rate 16 /min Perri Green ART MANAGER.VOLLEYBALL REFEREE Work Phone: [facility] 06-17-2024 14:03-0400 SaO2% (BldA) [Mass fraction] 96 % Perri Green ART MANAGER.VOLLEYBALL REFEREE Work Phone: [facility] 06-17-2024 14:03-0400 Systolic blood pressure 134 mm[Hg] Perri Green ART MANAGER.VOLLEYBALL REFEREE Work Phone: [facility] 01-16-2024 10:23-0500 Body temperature 98.49 [degF] Carlos Garcia MD Work Phone: [facility] 01-16-2024 10:23-0500 Body weight 153.32 kg Carlos Garcia MD Work Phone: [facility] 01-16-2024 10:23-0500 Diastolic blood pressure 90 mm[Hg] Carlos Garcia MD Work Phone: [facility] 01-16-2024 10:23-0500 Heart rate 76 /min Carlos Garcia MD Work Phone: [facility] 01-16-2024 10:23-0500 Respiratory rate 16 /min Carlos Garcia MD Work Phone: [facility] 01-16-2024 10:23-0500 SaO2% (BldA) [Mass fraction] 92 % Carlos Garcia MD Work Phone: [facility] 01-16-2024 10:23-0500 Systolic blood pressure 142 mm[Hg] Carlos Garcia MD Work Phone: [facility] 10-07-2023 17:00-0500 Diastolic blood pressure 62 mm[Hg] [facility] 10-07-2023 17:00-0500 Heart rate 86 /min [facility] 10-07-2023 17:00-0500 Respiratory rate 18 /min [facility] 10-07-2023 17:00-0500 SaO2% (BldA) [Mass fraction] 92 % [facility] 10-07-2023 17:00-0500 Systolic blood pressure 129 mm[Hg] [facility] 10-07-2023 15:07-0500 Body mass index (BMI) [Ratio] 49.6 kg/m2 [facility] 10-07-2023 15:07-0500 Body weight 152.4 kg [facility] 10-07-2023 15:01-0500 Body height 175.26 cm [facility] 10-07-2023 15:01-0500 Body temperature 97.1 [degF] [facility] 08-14-2023 23:49-0400 Heart rate 90 /min [facility] 08-14-2023 23:49-0400 Respiratory rate 18 /min [facility] 08-14-2023 23:49-0400 SaO2% (BldA) [Mass fraction] 97 % [facility] 08-14-2023 21:13-0400 Body height 175.26 cm [facility] 08-14-2023 21:13-0400 Body mass index (BMI) [Ratio] 50.2 kg/m2 [facility] 08-14-2023 21:13-0400 Body temperature 97.8 [degF] [facility] 08-14-2023 21:13-0400 Body weight 154.22 kg [facility] 08-14-2023 21:13-0400 Diastolic blood pressure 93 mm[Hg] [facility] 08-14-2023 21:13-0400 Systolic blood pressure 147 mm[Hg] [facility] 07-07-2023 21:38-0400 Heart rate 89 /min [facility] 07-07-2023 21:38-0400 Respiratory rate 19 /min [facility] 07-07-2023 21:38-0400 SaO2% (BldA) [Mass fraction] 93 % [facility] 07-07-2023 18:24-0400 Body temperature 97.6 [degF] [facility] 07-07-2023 18:24-0400 Diastolic blood pressure 94 mm[Hg] [facility] 07-07-2023 18:24-0400 Systolic blood pressure 121 mm[Hg] [facility] 07-07-2023 17:32-0400 Body mass index (BMI) [Ratio] 48.7 kg/m2 [facility] 07-07-2023 17:32-0400 Body weight 149.68 kg [facility] 04-30-2023 23:01-0400 Diastolic blood pressure 88 mm[Hg] [facility] 04-30-2023 23:01-0400 Heart rate 79 /min [facility] 04-30-2023 23:01-0400 Respiratory rate 18 /min [facility] 04-30-2023 23:01-0400 SaO2% (BldA) [Mass fraction] 97 % [facility] 04-30-2023 23:01-0400 Systolic blood pressure 140 mm[Hg] [facility] 04-30-2023 20:39-0400 Body height 175.26 cm [facility] 04-30-2023 20:39-0400 Body mass index (BMI) [Ratio] 49.6 kg/m2 [facility] 04-30-2023 20:39-0400 Body temperature 98 [degF] [facility] 06-18-2023 20:39-0400 Body weight 152.4 kg [facility] 03-01-2023 07:34-0400 Body mass index (BMI) [Ratio] 51.7 kg/m2 [facility] 03-01-2023 07:34-0400 Body temperature 97.4 [degF] [facility] 03-01-2023 07:34-0400 Body weight 158.89 kg [facility] 03-01-2023 07:34-0400 Diastolic blood pressure 78 mm[Hg] [facility] 03-01-2023 07:34-0400 Heart rate 78 /min [facility] 03-01-2023 07:34-0400 Respiratory rate 16 /min [facility] 03-01-2023 07:34-0400 SaO2% (BldA) [Mass fraction] 98 % [facility] 03-01-2023 07:34-0400 Systolic blood pressure 143 mm[Hg] [facility] 01-19-2023 07:52-0500 Body weight 148.33 kg Pura Leon ART MANAGER.MAINTENANCE PERSON Work Phone: [facility] 01-19-2023 07:52-0500 Diastolic blood pressure 82 mm[Hg] Pura Leon ART MANAGER.MAINTENANCE PERSON Work Phone: [facility] 01-19-2023 07:52-0500 Heart rate 71 /min Pura Leon ART MANAGER.MAINTENANCE PERSON Work Phone: [facility] 01-19-2023 07:52-0500 Respiratory rate 16 /min Pura Leon ART MANAGER.MAINTENANCE PERSON Work Phone: [facility] 01-19-2023 07:52-0500 SaO2% (BldA) [Mass fraction] 96 % Pura Leon ART MANAGER.MAINTENANCE PERSON Work Phone: [facility] 01-19-2023 07:52-0500 Systolic blood pressure 130 mm[Hg] Pura Leon ART MANAGER.MAINTENANCE PERSON Work Phone: [facility] 01-12-2023 09:27-0500 Body weight 148.33 kg Pura Leon ART MANAGER.MAINTENANCE PERSON Work Phone: [facility] 01-12-2023 09:27-0500 Diastolic blood pressure 80 mm[Hg] Pura Leon ART MANAGER.MAINTENANCE PERSON Work Phone: [facility] 01-12-2023 09:27-0500 Heart rate 72 /min Pura Leon ART MANAGER.MAINTENANCE PERSON Work Phone: [facility] 01-12-2023 09:27-0500 Respiratory rate 16 /min Pura Leon ART MANAGER.MAINTENANCE PERSON Work Phone: [facility] 01-12-2023 09:27-0500 SaO2% (BldA) [Mass fraction] 96 % Pura Leon ART MANAGER.MAINTENANCE PERSON Work Phone: [facility] 01-12-2023 09:27-0500 Systolic blood pressure 136 mm[Hg] Pura Leon ART MANAGER.MAINTENANCE PERSON Work Phone: [facility] 12-14-2022 03:03-0500 Diastolic blood pressure 95 mm[Hg] [facility] 12-14-2022 03:03-0500 Heart rate 78 /min [facility] 12-14-2022 03:03-0500 Respiratory rate 22 /min [facility] 12-14-2022 03:03-0500 SaO2% (BldA) [Mass fraction] 98 % [facility] 12-14-2022 03:03-0500 Systolic blood pressure 158 mm[Hg] [facility] 12-14-2022 02:38-0500 Body temperature 97.5 [degF] [facility] 12-14-2022 02:35-0500 Body height 175.26 cm [facility] 12-14-2022 02:35-0500 Body mass index (BMI) [Ratio] 48.7 kg/m2 [facility] 12-14-2022 02:35-0500 Body weight 149.8 kg [facility] 12-06-2022 20:18-0500 Diastolic blood pressure 90 mm[Hg] [facility] 12-06-2022 20:18-0500 Heart rate 73 /min [facility] 12-06-2022 20:18-0500 Respiratory rate 18 /min [facility] 12-06-2022 20:18-0500 SaO2% (BldA) [Mass fraction] 97 % [facility] 12-06-2022 20:18-0500 Systolic blood pressure 192 mm[Hg] [facility] 12-06-2022 15:00-0500 Body height 175.26 cm [facility] 12-06-2022 15:00-0500 Body mass index (BMI) [Ratio] 48.7 kg/m2 [facility] 12-06-2022 15:00-0500 Body temperature 97.9 [degF] [facility] 12-06-2022 15:00-0500 Body weight 149.68 kg [facility] 11-07-2022 05:12-0500 Diastolic blood pressure 81 mm[Hg] [facility] 11-07-2022 05:12-0500 Heart rate 73 /min [facility] 11-07-2022 05:12-0500 Respiratory rate 18 /min [facility] 11-07-2022 05:12-0500 SaO2% (BldA) [Mass fraction] 97 % [facility] 11-07-2022 05:12-0500 Systolic blood pressure 145 mm[Hg] [facility] 11-07-2022 02:51-0500 Body temperature 98.7 [degF] [facility] 11-07-2022 02:48-0500 Body mass index (BMI) [Ratio] 47.7 kg/m2 [facility] 11-07-2022 02:48-0500 Body weight 146.7 kg [facility] 10-24-2022 13:41-0500 Body height 175.26 cm [facility] Work Phone: 10-24-2022 13:41-0500 Body mass index (BMI) [Ratio] 47.2 kg/m2 [facility] 10-24-2022 13:41-0500 Body temperature 97 [degF] [facility] 10-24-2022 13:41-0500 Body weight 145 kg [facility] 10-24-2022 13:41-0500 Diastolic blood pressure 94 mm[Hg] [facility] 10-24-2022 13:41-0500 Heart rate 99 /min [facility] 10-24-2022 13:41-0500 Respiratory rate 18 /min [facility] 10-24-2022 13:41-0500 SaO2% (BldA) [Mass fraction] 95 % [facility] 10-24-2022 13:41-0500 Systolic blood pressure 158 mm[Hg] [facility] 05-13-2022 14:23-0400 Body height 175.26 cm [facility] Work Phone: 05-13-2022 14:23-0400 Body mass index (BMI) [Ratio] 47.9 kg/m2 [facility] Work Phone: 05-13-2022 14:23-0400 Body temperature 97 [degF] [facility] Work Phone: 05-13-2022 14:23-0400 Body weight 147.41 kg [facility] Work Phone: 05-13-2022 14:23-0400 Diastolic blood pressure 135 mm[Hg] [facility] Work Phone: 05-13-2022 14:23-0400 Heart rate 101 /min [facility] Work Phone: 05-13-2022 14:23-0400 Respiratory rate 16 /min [facility] Work Phone: 05-13-2022 14:23-0400 SaO2% (BldA) [Mass fraction] 95 % [facility] Work Phone: 05-13-2022 14:23-0400 Systolic blood pressure 148 mm[Hg] [facility] Work Phone: Encounters Encounter Date Encounter Type Care Provider Facility Start: 07-23-2025 In-person encounter Ruthie Manriquez APRN-VOLLEYBALL REFEREE Work Phone: [facility] Work Phone: Start: 05-23-2025 End: 05-31-2025 Refill Carlos Garcia MD Work Phone: [facility] [place] Comment on above: Refill Request (Out of medication) Start: 12-16-2024 End: 12-16-2024 Office outpatient visit 25 minutes Pura Leon APRN.MAINTENANCE PERSON Work Phone: [facility] [place] Comment on above: Chronic pain of righ t knee (Primary Dx); Obesity, Class III, BMI 40-49.9 (morbid obesity) (HCC); Gastroesophageal reflux disease, unspecified whether esophagitis present; Chronic obstructive pulmonary disease, unspecified COPD type (HCC) Start: 12-16-2024 End: 12-16-2024 ambulatory CARLOS GARCIA Facility:[facility] Start: 12-02-2024 End: 12-03-2024 ambulatory MYA ANDREA Facility:[facility] Start: 12-02-2024 End: 12-02-2024 Patient encounter procedure Griselda Madison PA-C Work Phone: Orthopaedics Comment on above: Primary osteoarthrit is of right knee Start: 11-11-2024 End: 11-27-2024 Refill Carlos Garcia MD Work Phone: [facility] [place] Comment on above: Refill Request Start: 10-26-2024 End: 10-26-2024 ambulatory ALAINA PENNY MD Facility:A Start: 10-26-2024 End: 10-26-2024 Patient encounter procedure ALAINA PENNY MD [facility] Start: 10-17-2024 End: 10-21-2024 Telephone encounter Socrates Newton Start: 10-15-2024 End: 10-15-2024 Office outpatient visit 25 minutes Pura Leon APRN.MAINTENANCE PERSON Work Phone: [facility] [place] Comment on above: Chronic pain of righ t knee (Primary Dx); Chronic obstructive pulmonary disease (HCC); Cervicalgia; Gastroesophageal reflux disease, unspecified whether esophagitis present; Obesity, morbid, BMI 50 or higher (HCC); Transportation insecurity; Encounter for immunization Start: 10-15-2024 End: 10-15-2024 ambulatory CARLOS GARCIA Facility:[facility] Start: 09-09-2024 End: 09-09-2024 Telephone encounter Mya Andrea APRN.VOLLEYBALL REFEREE Work Phone: [facility] [place] Comment on above: Results Start: 09-04-2024 End: 09-05-2024 Telephone encounter Mya Andrea APRN.VOLLEYBALL REFEREE Work Phone: [facility] [place] Comment on above: Results Start: 09-03-2024 End: 09-03-2024 Subsequent hospital visit by physician Jessica [facility] [place] Work Phone: Radiology Comment on above: Arthralgia of multip le joints [M25.50] Start: 09-03-2024 End: 09-03-2024 ambulatory CARLOS GARCIA Facility:[facility] Start: 09-03-2024 End: 09-03-2024 Patient encounter procedure Mya Andrea APRN.VOLLEYBALL REFEREE Work Phone: [facility] [place] Comment on above: Wellness examination (Primary Dx); Chronic obstructive pulmonary disease, unspecified COPD type (HCC); Arthralgia of multiple joints; Reactive hypoglycemia; Vitamin D deficiency; Screening for prostate cancer; Screening for depression; Encounter for screening examination for other mental health and behavioral disorders; Encounter for therapeutic drug monitoring Start: 09-03-2024 End: 09-03-2024 Patient encounter status Mya Andrea APRN.VOLLEYBALL REFEREE Work Phone: [facility] Work Phone: Start: 08-05-2024 End: 08-05-2024 Refill Carlos Garcia MD Work Phone: [facility] [place] Comment on above: Refill Request Start: 06-17-2024 End: 06-17-2024 Subsequent hospital visit by physician Jessica [facility] [place] Work Phone: Radiology Comment on above: Lumbar pain [M54.50] Start: 06-17-2024 End: 06-17-2024 ambulatory CARLOS MANUELLILIANA Facility:[facility] Start: 06-17-2024 End: 06-17-2024 Patient encounter procedure Perri Green VOLLEYBALL REFEREE Work Phone: [facility] Comment on above: Lumbar pain (Primary Dx) Start: 05-09-2024 Refill Carlos cardenas MD Work Phone: [facility] [place] Comment on above: Refill Request Start: 04-05-2024 Refill Carlos cardenas MD Work Phone: [facility] [place] Comment on above: Refill Request Start: 03-29-2024 End: 03-29-2024 Emergency department patient visit [facility] Joya [facility] Facility:[facility] Start: 01-16-2024 End: 01-16-2024 ambulatory [facility] Facility:[facility] Start: 01-16-2024 End: 01-16-2024 Office outpatient visit 25 minutes Carlos Garcia MD Work Phone: [facility] [place] Comment on above: Chronic obstructive pulmonary disease with acute exacerbation (HCC) (Primary Dx); Sinobronchitis Start: 01-15-2024 Refill Calros cardenas MD Work Phone: [facility] [place] Comment on above: Refill Request (not needed-refills at pharmacy) Start: 10-07-2023 End: 10-07-2023 Emergency department patient visit Carlos Meyers Facility:[facility] Start: 10-07-2023 End: 10-07-2023 Emergency department patient visit [facility] Work Phone: Start: 09-01-2023 ambulatory QUINTON Rodrigez lity:[facility] Start: 09-01-2023 End: 09-01-2023 Subsequent hospital visit by physician Radio [facility] Work Phone: Radiology Comment on above: Right knee pain, uns pecified chronicity [M25.561] Start: 09-01-2023 End: 09-01-2023 Patient encounter procedure Quinton Cheek PA-C Work Phone: Orthopaedics Comment on above: Primary osteoarthrit is of right knee (Primary Dx); Right knee pain, unspecified chronicity Start: 08-16-2023 Telephone encounter Quinton Ham DAMIAN Work Phone: Orthopaedics Comment on above: Appointment (Shai bailey Appointment on 09/01/23) Start: 08-14-2023 End: 08-15-2023 Emergency department patient visit Scout Gutierrez Facility:[facility] Start: 08-14-2023 End: 08-15-2023 Emergency department patient visit [facility] Work Phone: Start: 07-07-2023 End: 07-07-2023 Emergency department patient visit Jared Almaraz Facility:[facility] Start: 07-07-2023 End: 07-07-2023 Emergency department patient visit [facility] Work Phone: Start: 04-30-2023 End: 05-01-2023 Emergency department patient visit Carlos Hinson Krisliliana Facility:[facility] Start: 04-30-2023 End: 04-30-2023 Emergency department patient visit [facility] Start: 03-01-2023 End: 03-01-2023 Emergency department patient visit [facility] Start: 01-19-2023 End: 01-19-2023 Office outpatient visit 15 minutes Pura Leon ART MANAGER.MAINTENANCE PERSON Work Phone: [facility] [place] Comment on above: Acute infection of l eft external ear (Primary Dx); Acute otitis media, left; Left facial swelling; Acute pain of left ear; Colon cancer screening Start: 01-12-2023 End: 01-12-2023 Office outpatient visit 25 minutes Pura Leon ART MANAGER.MAINTENANCE PERSON Work Phone: [facility] [place] Comment on above: Acute left-sided low back pain with right-sided sciatica (Primary Dx); Encounter for immunization; Chronic obstructive pulmonary disease (HCC); Screening for HIV (human immunodeficiency virus); Chronic obstructive pulmonary disease, unspecified COPD type (HCC); Screening for colon cancer; Screening for prostate cancer Start: 12-15-2022 Telephone encounter Pura lee ART MANAGER.MAINTENANCE PERSON Work Phone: [facility] [place] Comment on above: Medication Problem Start: 12-14-2022 End: 12-14-2022 [facility] Start: 12-13-2022 Telephone encounter Carlos mooney MD Work Phone: [facility] [place] Comment on above: Flank Pain Start: 12-06-2022 End: 12-06-2022 Emergency department patient visit [facility] Start: 11-07-2022 End: 11-07-2022 Emergency department patient visit [facility] Start: 10-24-2022 End: 10-24-2022 [facility] Start: 08-31-2022 Refill Pura Leon ART MANAGER.MAINTENANCE PERSON Work Phone: [facility] [place] Comment on above: Refill Request Start: 05-13-2022 End: 05-13-2022 [facility] Start: 05-13-2022 Refill Carlos cardenas MD Work Phone: [facility] [place] Comment on above: Refill Request Start: 07-28-2021 End: 07-28-2021 Subsequent hospital visit by physician Xr [facility] Work Phone: Radiology Comment on above: SOBOE (shortness of breath on exertion) [R06.02] Start: 02-14-2019 End: 02-17-2019 Evaluation and management of inpatient PONCHO PARSON Facility:A Start: 02-14-2019 End: 02-14-2019 Emergency department patient visit ETHAN DANG Facility:B Start: 01-07-2019 End: 01-07-2019 Emergency department patient visit Taniya Capps Facility:B Start: 09-23-2018 End: 09-23-2018 Emergency department patient visit ETHAN DANG Facility:B Start: 09-11-2018 End: 09-11-2018 Emergency department patient visit USMAN CHU Facility:B Start: 03-12-2018 End: 03-12-2018 Emergency department patient visit VIKTORIA JUÁREZ Facility:B Start: 08-15-2017 Ambulatory UNKNOWN [facility] Procedures Date Procedure Procedure Detail Performing Clinician Start: 09-03-2024 Adult depression screening assessment Mya Andrea ART MANAGER.VOLLEYBALL REFEREE Work Phone: Start: 06-17-2024 Radex spine lumbosacral 2/3 views Perri Green ART MANAGER.VOLLEYBALL REFEREE Work Phone: Start: 09-01-2023 Radiologic exam knee complete 4/more views Quinton Cheek PA-C Work Phone: Start: 08-14-2023 Radiologic examination of knee Start: 07-07-2023 Plain chest X-ray Start: 07-07-2023 SARS-CoV-2 & FLU Antigen (Rapid) Start: 04-30-2023 Plain chest X-ray Start: 12-06-2022 CT of abdomen and pelvis without contrast Start: 11-07-2022 Plain chest X-ray Start: 07-28-2021 Radiologic exam chest 2 views Pura Leon ART MANAGER.MAINTENANCE PERSON Work Phone: Start: 02-04-2021 Adult depression screening assessment Carlos Garcia MD Work Phone: Start: 04-06-2020 Lipid 1996 panel - Serum or Plasma Quinton Cheek PA-C Work Phone: Arthroplasty of knee RUT PENNY MD History of operative procedure on knee History of left knee replacement SARS-CoV-2 & FLU Ant igen (Rapid) Urine culture Plan of Treatment Date Care Activity Detail Author Start: 09-03-2029 Prostate specific antigen measurement Prostate Cancer Screening Discussion [facility] Start: 09-03-2027 Diabetes Screening Diabetes Screening [facility] Start: 12-16-2025 BP Controlled (<130/80) BP Controlled (<130/80) [facility] in Start: 10-15-2025 BP Controlled (<130/80) BP Controlled (<130/80) [facility] in Start: 10-15-2025 Covid-19 Vaccine ( season) Covid-19 Vaccine ( season) [facility] Comment on above: Postponed from 07/14/2024 (Declined at t his time) Start: 10-15-2025 Pneumococcal vaccination Pneumococcal Vaccine (1 of 2 - PCV) [facility] Comment on above: Postponed from 1970 (Declined at t his time) Start: 10-15-2025 Shingrix Vaccine (1 of 2) Shingrix Vaccine (1 of 2) [facility] Comment on above: Postponed from 2014 (Declined at t his time) Start: 10-15-2025 Urine microalbumin profile DTaP,Tdap,Td Vaccine (1 - Tdap) [facility] Comment on above: Postponed from 1983 (Declined at t his time) Start: 09-03-2025 Annual PCP Team Chronic Disease Visit Annual PCP Team Chronic Disease Visit [facility] Start: 09-03-2025 Anxiety Screening Anxiety Screening [facility] Start: 09-03-2025 Depression Screening Depression Screening [facility] Start: 07-23-2025 End: 07-23-2025 [place] Work Phone: Start: 07-23-2025 Radiologic examination knee 3 views [facility] Work Phone: Start: 07-14-2025 Influenza vaccination Influenza Vaccine (#1) [facility] Start: 05-12-2025 Influenza vaccination Influenza Vaccine (#1) [facility] Comment on above: Postponed from 07/14/2024 (Declined at t his time) Start: 04-25-2025 End: 04-25-2025 Patient encounter procedure 04/25/2025 4:20 PM EDT Office Visit [facility] [place] [address] [place] [id number] Carlos Garcia MD [address] [place] [id number] 6 month f/u [facility] [place] Comment on above: 6 month f/u Start: 04-06-2025 Lipid 1996 panel - Serum or Plasma Lipid Screening [facility] Start: 04-06-2025 Lipid panel Lipid Screening [facility] Start: 04-06-2025 LIPID SCREEN LIPID SCREEN [facility] Start: 01-15-2025 Annual PCP Team Chronic Disease Visit Annual PCP Team Chronic Disease Visit [facility] Start: 2024 RSV Vaccine (1 - Risk 60-74 years 1-dose series) RSV Vaccine (1 - Risk 60-74 years 1-dose series) [facility] Start: 2024 End: 2024 Nutrition therapy 2024 1:45 PM EST Education [facility] [address] [place] [address] Kari Pantoja, ARIEL [address] [place] [address] Obesity, Class III, BMI 40-49.9 (morbid obesity) ([facility]) [E66.01] Nutrition Therapy Comment on above: Obesity, Class III, BMI 40-49.9 (morbid obesity) ([facility]) [E66.01] Start: 12-16-2024 End: 12-16-2024 Patient encounter procedure 12/16/2024 1:40 PM EST Office Visit [facility] [place] [address] [place] [address] Pura Leon APRN.MAINTENANCE PERSON [address] [place], [place] [address] follow up [facility] [place] Comment on above: follow up Start: 12-06-2024 End: 12-06-2024 ambulatory [facility] Comment on above: Chronic obstructive pulmonary disease (H CC) [J44.9] Start: 12-02-2024 End: 12-02-2024 Patient encounter procedure 12/02/2024 1:00 PM EST Office Visit Orthopaedics [address] [place] [address] Griselda Madison PA-C [address] [place], [place] [id number] Arthralgia of multiple joints [M25.50]; Primary osteoarthritis of right knee [M17.11] Orthopaedics Comment on above: Arthralgia of multiple joints [M25.50]; Primary osteoarthritis of right knee [M17.11] Start: 12-02-2024 End: 12-02-2024 ambulatory [facility] Comment on above: Chronic obstructive pulmonary disease (H CC) [J44.9] Start: 10-15-2024 End: 10-15-2024 Patient encounter procedure 10/15/2024 3:00 PM EST Office Visit [facility] [place] [address] [place] [address] Pura Leon APRN.MAINTENANCE PERSON [address] [place] [address] 6 week follow up [facility] [place] Comment on above: 6 week follow up Start: 09-03-2024 End: 12-03-2024 25-hydroxyvitamin D3 [Mass/volume] in Serum or Plasma [facility] Comment on above: Expected: 09/03/2024, Expires: Start: 09-03-2024 End: 12-03-2024 Alpha 1 antitrypsin [Mass/volume] in Serum or Plasma [facility] Comment on above: Expected: 09/03/2024, Expires: Start: 09-03-2024 End: 12-03-2024 RAGHAVENDRA BY IFA WITH REFLEX [facility] Comment on above: Expected: 09/03/2024, Expires: Start: 09-03-2024 End: 12-03-2024 C reactive protein [Mass/volume] in Serum or Plasma [facility] Comment on above: Expected: 09/03/2024, Expires: 5 Start: 09-03-2024 End: 12-03-2024 CBC W Auto Differential panel - Blood [facility] Work Phone: Comment on above: Expected: 09/03/2024, Expires: Start: 09-03-2024 End: 12-03-2024 Comprehensive metabolic 2000 panel - Serum or Plasma [facility] Comment on above: Expected: 09/03/2024, Expires: Start: 09-03-2024 End: 12-03-2024 Erythrocyte sedimentation rate [facility] Comment on above: Expected: 09/03/2024, Expires: Start: 09-03-2024 End: 12-03-2024 Hemoglobin A1c in Blood [facility] Comment on above: Expected: 09/03/2024, Expires: 5 Start: 09-03-2024 End: 12-03-2024 Magnesium [Mass/volume] in Serum or Plasma [facility] Comment on above: Expected: 09/03/2024, Expires: Start: 09-03-2024 End: 12-03-2024 PSA/PROSTATE SPECIFIC ANTIGEN SCREENING [facility] Comment on above: Expected: 09/03/2024, Expires: Start: 09-03-2024 End: 12-03-2024 Rheumatoid factor [Units/volume] in Serum or Plasma [facility] Comment on above: Expected: 09/03/2024, Expires: Start: 09-03-2024 End: 12-03-2024 Thyrotropin [Units/volume] in Serum or Plasma [facility] Comment on above: Expected: 09/03/2024, Expires: Start: 07-14-2024 Covid-19 Vaccine ( season) Covid-19 Vaccine () [facility] Start: 07-14-2024 Covid-19 Vaccine ( season) Covid-19 Vaccine () [facility] Start: 07-14-2024 Influenza vaccination [facility] Start: 06-27-2024 Annual PCP Team Chronic Disease Visit Annual PCP Team Chronic Disease Visit [facility] Start: 01-20-2024 ANNUAL PCP TEAM CHRONIC DISEASE VISIT ANNUAL PCP TEAM CHRONIC DISEASE VISIT [facility] Start: 01-20-2024 BP CONTROLLED (<130/80) BP CONTROLLED (<130/80) [facility] inic Start: 11-13-2023 Behavioral Health Screening Behavioral Health Screening [facility] Start: 11-13-2023 Depression Assessment Depression Assessment [facility] Start: 10-07-2023 [facility] Start: 07-14-2023 Covid-19 Vaccine ( season) Covid-19 Vaccine ( season) [facility] Start: 07-14-2023 Influenza vaccination Influenza Vaccine (#1) [facility] Start: 07-07-2023 [facility] Start: 04-30-2023 [facility] Start: 04-05-2023 DIABETES SCREEN DIABETES SCREEN [facility] Start: 04-05-2023 Diabetes Screening Diabetes Screening [facility] Start: 01-12-2023 End: 03-14-2023 Alpha 1 antitrypsin [Mass/volume] in Serum or Plasma [id number] BL Lab Routine Chronic obstructive pulmonary disease, unspecified COPD type (HCC) Expected: 01/12/2023, Expires: 03/14/2023 [facility] Work Phone: Comment on above: Expected: 01/12/2023, Expires: 3 Start: 01-12-2023 End: 03-14-2023 HIV 1+2 Ab [Presence] in Serum or Plasma by Immunoassay HIV 1 2 COMBO(AG/AB),WITH REFLEX TO DIFFERENTIATION Lab Routine Screening for HIV (human immunodeficiency virus) Expected: 01/12/2023, Expires: 03/14/2023 [facility] Work Phone: Comment on above: Expected: 01/12/2023, Expires: 3 Start: 01-12-2023 End: 03-14-2023 PSA/PROSTSPECAG SCRN PSA/PROSTSPECAG SCRN Lab Routine Screening for prostate cancer Expected: 01/12/2023, Expires: 03/14/2023 [facility] Work Phone: Comment on above: Expected: 01/12/2023, Expires: 3 Start: 12-06-2022 [facility] Start: 12-06-2022 [facility] Start: 11-13-2022 DEPRESSION ASSESSMENT DEPRESSION ASSESSMENT [facility] Start: 11-07-2022 Respiratory secretion precautions [facility] Start: 11-07-2022 [facility] Start: 07-14-2022 Influenza vaccination INFLUENZA (#1) [facility] Start: 06-05-2022 PROSTATE CANCER SCREENING DISCUSSION PROSTATE CANCER SCREENING DISCUSSION [facility] Start: 06-05-2022 Prostate specific antigen measurement Prostate Cancer Screening Discussion [facility] Start: 05-13-2022 End: 07-13-2022 Comprehensive metabolic 2000 panel - Serum or Plasma COMP METABOLIC PANEL Lab Routine Essential hypertension, benign Expected: 05/13/2022, Expires: 07/13/2022 [facility] Work Phone: Comment on above: Expected: 05/13/2022, Expires: Start: 02-04-2022 Adult depression screening assessment DEPRESSION SCREENING [facility] Start: 11-13-2021 DEPRESSION ASSESSMENT DEPRESSION ASSESSMENT [facility] Start: 05-08-2021 ANNUAL PCP TEAM CHRONIC DISEASE VISIT ANNUAL PCP TEAM CHRONIC DISEASE VISIT [facility] Start: 2014 SHINGRIX VACCINE (1 of 2) SHINGRIX VACCINE (1 of 2) [facility] Start: 2009 COLOGUARD (FIT-DNA) COLOGUARD (FIT-DNA) [facility] Start: 2009 Colonoscopy COLONOSCOPY [facility] Start: 2009 COLORECTAL CANCER SCREENING COLORECTAL CANCER SCREENING [facility] Start: [address] COLONOGRAPHY [facility] Start: 2009 FECAL OCCULT BLOOD FECAL OCCULT BLOOD [facility] Start: 2009 Screening for malignant neoplasm of colon [facility] Start: 2009 SIGMOIDOSCOPY SIGMOIDOSCOPY [facility] Start: 1994 Zoledronic acid therapy ALPHA-1 ANTITRYPSIN DEFICIENCY SCREENING [facility] Start: 1983 Pneumococcal Vaccine: 50+ (1 of 2 - PCV) Pneumococcal Vaccine: 50+ (1 of 2 - PCV) [facility] Start: 1983 Urine microalbumin profile [facility] Start: 1982 Anxiety Screening Anxiety Screening [facility] Start: 1982 BP CONTROLLED (<130/80) BP CONTROLLED (<130/80) [facility] inic Start: 1982 Depression Screening Depression Screening [facility] Start: 1982 HIV SCREENING HIV SCREENING [facility] Start: 1982 HIV screening HIV Screening [facility] Start: 1982 SPIROMETRY SPIROMETRY [facility] Start: 1970 PNEUMOCOCCAL (1 - PCV) PNEUMOCOCCAL (1 - PCV) [facility] Start: 1970 Pneumococcal vaccination [facility] Start: 06-29-1965 COVID-19 VACCINE (#1) COVID-19 VACCINE (#1) [facility] Start: 1964 HEPATITIS B (1 of 3 - 3-dose series) HEPATITIS B (1 of 3 - 3-dose series) [facility] Start: 1964 Hepatitis B Vaccine (1 of 3 - 3-dose series) Hepatitis B Vaccine (1 of 3 - 3-dose series) [facility] Bacteria identified in Urine by Culture Urine Culture [facility] COLOGUARD COLOGUARD Lab Ro lisandra Colon cancer screening Ordered: 01/19/2023 [facility] Work Phone: Comment on above: Ordered: 01/19/2023 End: 11-14-2025 OXIMETRY WITH AMBULATION OXIMETRY WITH AMBULATION PFT Routine Chronic obstructive pulmonary disease (HCC) 1 Occurrences starting 10/15/2024 until 11/14/2025 [facility] Comment on above: 1 Occurrences starting 10/15/2024 until 11/14/2025 Patient Education [facility] Work Phone: Patient referral [facility] Work Phone: End: 02-11-2024 SPIROMETRY - BASELINE AND POST DILATOR SPIROMETRY - BASELINE AND POST DILATOR PFT Routine Chronic obstructive pulmonary disease (HCC) 1 Occurrences starting 01/12/2023 until 02/11/2024 [facility] Work Phone: Comment on above: 1 Occurrences starting 01/12/2023 until 02/11/2024 End: 11-14-2025 SPIROMETRY - BASELINE AND POST DILATOR SPIROMETRY - BASELINE AND POST DILATOR PFT Routine Chronic obstructive pulmonary disease (HCC) 1 Occurrences starting 10/15/2024 until 11/14/2025 [facility] Work Phone: Comment on above: 1 Occurrences starting 10/15/2024 until 11/14/2025 End: 10-03-2025 XR Cervical spine AP and Lateral and oblique XR CERV OTHER 4V AP/LAT/OBL Radiology Routine Arthralgia of multiple joints 1 Occurrences starting 09/03/2024 until 10/03/2025 [facility] Comment on above: 1 Occurrences starting 09/03/2024 until 10/03/2025 XR Cervical spine AP and Lateral and oblique XR CERV OTHER 4V AP/LAT/OBL Radiology Routine Arthralgia of multiple joints 09/03/2024 4:25 PM EDT [facility] End: 10-03-2025 XR Knee - right AP and Lateral XR KNEE LIMITED 2V AP/LAT RIGHT Radiology Routine Arthralgia of multiple joints 1 Occurrences starting 09/03/2024 until 10/03/2025 [facility] Comment on above: 1 Occurrences starting 09/03/2024 until 10/03/2025 XR Knee - right AP a nd Lateral XR KNEE LIMITED 2V AP/LAT RIGHT Radiology Routine Arthralgia of multiple joints 09/03/2024 4:25 PM EDT [facility] End: 10-03-2025 XR Shoulder - left 2 Views XR SHOULDER LIMITED 2V AP/TRUE AP LEFT Radiology Routine Arthralgia of multiple joints 1 Occurrences starting 09/03/2024 until 10/03/2025 [facility] Comment on above: 1 Occurrences starting 09/03/2024 until 10/03/2025 XR Shoulder - left 2 Views XR SHOULDER LIMITED 2V AP/TRUE AP LEFT Radiology Routine Arthralgia of multiple joints 09/03/2024 4:25 PM EDT [facility] Immunizations Immunization Date Immunization Notes Care Provider Ron sun 02-04-2021 zoster vaccine, recombinant, adjuvanted, (SHINGRIX, PF,) 50 mcg/0.5 mL injection Xr [place] Work Phone: [facility] 08-26-2019 influenza, injectabl e, quadrivalent, preservative free [facility] 08-26-2019 influenza, seasonal, injectable [facility] 08-26-2019 influenza virus vaccine, unspecified formulation Quinton Cheek PA-C Work Phone: [facility] 08-18-2018 influenza, seasonal, injectable Carlos Garcia MD Work Phone: [facility] 08-20-2015 influenza, seasonal, injectable Carlos Garcia MD Work Phone: [facility] Payers Date Payer Category Payer Unknown [id number] 2023 Self-pay [id number] 2013 Medicaid [id number] 2013 Unknown [id number] 2007 Medicaid [facility] MED[facility] [id number] 2007-[facility] [phone] [address] [place] [address] Medicaid [id number] 2007 Medicaid [id number] 1964 Unknown [id number] 1964 Unknown [id number] 1964 Unknown [id number] 1964 Unknown [id number] 1964 Unknown [id number] 1964 Unknown [id number] 1964 Unknown [id number] Unknown Unknown [id number] Unknown [id number] Unknown [id number] Unknown [id number] Unknown [id number] Social History Date Type Detail Facility Start: 05-13-2022 End: 10-07-2023 Tobacco smoking status NEIS Unknown if ever smoked [facility] Start: 06-17-2020 None [facility] Start: 12-17-2020 Spouse/ Signif icant Other [facility] Start: 04-07-2020 Cigarettes [facility] Start: 1965 Sex Assigned At Male [facility] Start: 02-04-2021 End: 09-03-2024 Tobacco smoking status NHIS Ex-smoker [facility] Work Phone: Start: 11-13-1969 End: 11-13-1994 History of tobacco use Current smoker [facility] Work Phone: Start: 11-13-1969 End: 11-13-1994 History of tobacco use Cigarette Smoker [facility] Work Phone: Start: 02-04-2021 End: 10-15-2024 Alcohol intake Current drinker of alcohol (finding) [facility] Start: 06-15-2007 History SDOH Alcohol Comment occasional beer [facility] Start: 02-04-2021 End: 12-15-2022 Tobacco Comment quit 25 years ago [facility] Start: 1965 Sex Assigned At Not on file [facility] Start: 02-04-2021 End: 08-11-2023 Cigarettes smoked current (pack per day) - Reported 2 [facility] Work Phone: Start: 02-04-2021 End: 09-03-2024 Tobacco use and exposure Smokeless tobacco non-user [facility] Work Phone: Start: 06-27-2023 End: 07-23-2025 Tobacco use panel [facility] Work Phone: Adult Depression Screening Assessment 0 [facility] Work Phone: Start: 06-26-2021 End: 07-26-2021 Exposure to SARS-CoV-2 (event) Yes [facility] Tobacco Tobacco Use: julieth t 26 year ago. [facility] Tobacco smoking status Never smo ked tobacco (finding) [facility] Start: 12-02-2024 End: 12-16-2024 Alcoholic beverage intake Ex-drinker (finding) [facility] Start: 07-23-2025 Tobacco smoking status Never s moked any substance (finding) [employer] Work Phone: Medical Equipment Procedure Code Equipment Code Equipment Original Text Equipment Identifier Dates Philip Bn Smpx P Tobra Fd - [id number] Start: 03-22-2012 Comment on above: Description: Simplex P w/ tobramycin Comp Fem 6 Lt Kn Philip Cr Trthln - [id number] Start: 03-22-2012 Comment on above: Description: Cruciat e Retaining Femoral-left cemented Comp Pat 11mm 40mm Asym Trthln - [id number] Start: 03-22-2012 Comment on above: Description: Triathl on Asymmetric Patella Ins Tib 6 11mm X 3 Cs Trthln - [id number] Start: 03-22-2012 Comment on above: Description: Tibial Bearing Insert-CS Baseplt Tib Trthln 6 Prim - [id number] Start: 03-22-2012 Comment on above: Description: Primary Tibial Baseplate Functional Status Date Assessment Result Facility 07-23-2025 Functional Status right [employer] Work Phone: 07-23-2025 dependent [employer] Work Phone: 02-11-2015 Are you deaf, or do you have serious difficulty hearing No 02/11/2015 2:02 PM Lani Rashid Cma No [facility] 02-11-2015 Are you blind, or do you have serious difficulty seeing, even when wearing glasses No 02/11/2015 2:02 PM Lani Rashid Cma No [facility] 02-11-2015 Do you have serious difficulty walking or climbing stairs No 02/11/2015 2:02 PM EDT Helen TomLani No [facility] 02-11-2015 Do you have difficul ty dressing or bathing No 02/11/2015 2:02 PM EDT Helen Lani Tom No [facility] 02-11-2015 Because of a physica l, mental, or emotional condition, do you have difficulty doing errands alone such as visiting a physician's office or shopping No 02/11/2015 2:02 PM EDT Helen TomLani No [facility] Mental Status Date Assessment Result Facility 07-23-2025 Cognitive Function [place] [employer] Work Phone: 04-30-2023 Cognitive function Voice/Name [facility] Work Phone: 12-14-2022 Cognitive function Level Of Cons ciousness Awake;Alert;Appropriate;Fol lows Commands [facility] Work Phone: 02-11-2015 Because of a physica l, mental, or emotional condition, do you have serious difficulty concentrating, remembering, or making decisions No 02/11/2015 2:02 PM EDT Helen TomLani No [facility] Clinical Notes 04-24-2012 to 05-28-2025 Telephone Encounter - Marianne Chance - 05/28/2025 1:13 PM EDTTelephone Encounter - Marianne Chance - 05/28/2025 1:13 PM EDTPatient Mavis Ellis MA - 12/02/2024 11:06 AM EST Note Date & Type Note Facility 05-28-2025 Telephone encounter Note Spoke with patient and unable to schedule at this time and will return call to arrange. 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 [facility] 05-28-2025 Miscellaneous Notes Spoke with patient and unable to schedule at this time and will return call to arrange. 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 Please call pt to rescheduled April's appt. Needs follow up rescheduled since had to cancel April appointment and not yet rescheduled The following approved medication requests have been transmitted electronically. Requested Prescriptions Signed Prescriptions Disp Refills hydroCHLOROthiazide 25 mg tablet 90 tablet 1 Sig: Take 1 tablet by mouth once daily. Authorizing Provider: CARLOS GARCIA MD Prescription Refill Information The patient has been identified by name and date of : Yes Caregiver verified no other encounters exist for this prescription request: Yes Caregiver confirmed with patient/requestor that no other refills are due, in the near future, with this provider at this time: Yes The last office visit in the department: 12/16/24 Does the patient have a future office visit with this provider/department: No Requested Prescriptions Pending Prescriptions Disp Refills hydroCHLOROthiazide 25 mg tablet 90 tablet 1 Sig: Take 1 tablet by mouth once daily. Out of medication Ladi Lorenz May 23, 2025 9:05 AM documented in this encounter [facility] 05-23-2025 Telephone encounter Note Please call pt to rescheduled April's appt. [facility] 05-23-2025 Telephone encounter Note Needs follow up rescheduled since had to cancel April appointment and not yet rescheduled The following approved medication requests have been transmitted electronically. Requested Prescriptions Signed Prescriptions Disp Refills hydroCHLOROthiazide 25 mg tablet 90 tablet 1 Sig: Take 1 tablet by mouth once daily. Authorizing Provider: CARLOS GARCIA MD [facility] 05-23-2025 Telephone encounter Note Prescription Refill Information The patient has been identified by name and date of : Yes Caregiver verified no other encounters exist for this prescription request: Yes Caregiver confirmed with patient/requestor that no other refills are due, in the near future, with this provider at this time: Yes The last office visit in the department: 12/16/24 Does the patient have a future office visit with this provider/department: No Requested Prescriptions Pending Prescriptions Disp Refills hydroCHLOROthiazide 25 mg tablet 90 tablet 1 Sig: Take 1 tablet by mouth once daily. Out of medication Ladi Lorenz May 23, 2025 9:05 AM [facility] 12-16-2024 Instructions Prua Leon APRN.CNS - 12/16/2024 2:06 PM EST Try to cut down your portion sizes. Decrease your intake of bread and potatoes. Add vegetables and protein at every meal. Try doing some chair exercises or lifting small weights daily to help with weight loss. Take one celebrex daily as needed for knee pain. Higher dose, do not take two a day. He googled how many calories he should be daily documented in this encounter [facility] 12-16-2024 History of Presen t illness Narrative SUBJECTIVE: Spirometry Never done Pneumococcal Vaccine: 50+(1 of 2 - PCV) Never done Colorectal Cancer Screening Never done HPI Nancie Ruano is a 58 year old male. PMH signficant for ACTIVE PROBLEM LIST Unspecified Hearing Loss Obesity, Class Iii, Bmi 40-49.9 (Morbid Obesity) (Hcc) Tobacco Use Disorder [place] On Cpap Esophageal Reflux Umbilical Hernia Without Mention of Obstruction Or Gangrene Other Ventral Hernia Without Mention of Obstruction Or Gangrene Essential Hypertension, Benign S/P Total Knee Replacement Pain in Joint, Lower Leg Weight Gain Chronic Obstructive Pulmonary Disease (Hcc) Presents for routine visit. Since last seen he had an orthopedic appointment. Discussed corticosteroid injection in the right knee which he declined. Weight loss was endorsed. He googled what calorie amount he should eat and came up with 2500 to 3000/day. His weight is increased since he was last seen. He canceled pulmonary function testing which was scheduled. He notes neck and knee pain are somewhat improved with the current treatment. He has a history of left total knee replacement. Does note continued right knee pain worse with walking any distance. Does have some swelling at the knee. Notes decreased range of motion at the knee. Notes celebrex did help when he took two a day. He notes currently without heartburn or RUQ discomfort. Current PPI use. No report of abdominal pain nausea vomiting diarrhea constipation BRBPR black or tarry stool.Notes stopping soda seemed to help a lot. History of FREDERICK not currently using CPAP. Reports trouble with wearing this in the past so he returned it. Thinks he had sleep study at [facility] onsite. He reports transportation insecurity, has an appointment to discuss Social Security disability and not sure how we will get the area. Does not know if his health insurance covers transportation to appointments. He notes chronically short of breath on exertion. No recent PFT. Appears last check 2019 [facility] with ambulatory oximetry. Review of Systems Constitutional: Negative. Respiratory: Positive for shortness of breath (stable SOBOE). Gastrointestinal: Negative. Musculoskeletal: Positive for arthralgias. Objective BP 115/72 Pulse 99 Resp 16 Wt (!) 159 kg (350 lb 8.5 oz) BMI 51.76 kg/m Physical Exam Vitals and nursing note reviewed. Constitutional: Appearance: Normal appearance. HENT: Head: Normocephalic and atraumatic. Eyes: Conjunctiva/sclera: Conjunctivae normal. Neck: Thyroid: No thyromegaly. Vascular: Normal carotid pulses. No JVD. Cardiovascular: Rate and Rhythm: Normal rate and regular rhythm. Pulmonary: Effort: Pulmonary effort is normal. Breath sounds: Normal breath sounds. Abdominal: General: Bowel sounds are normal. Palpations: Abdomen is soft. Musculoskeletal: Cervical back: Muscular tenderness present. Decreased range of motion. Right knee: Swelling present. Decreased range of motion. Tenderness present. Skin: General: Skin is warm and dry. Neurological: General: No focal deficit present. Mental Status: He is alert and oriented to person, place, and time. ALLERGIES Allergen Reactions Hctz [Lisinopril-Hy* Other: See Comments dizziness Penicillins Other: See Comments passed Out Loss of consciousness Medication hydroCHLOROthiazide 25 mg tablet Take 1 tablet by mouth once daily. omeprazole (PRILOSEC) 20 mg capsule Take 1 capsule by mouth daily before breakfast. 1/2 hr before meal. cyclobenzaprine (FLEXERIL) 10 mg tablet Take 1 tablet by mouth at bedtime as needed for muscle spasm or pain. Cholecalciferol, Vitamin D3, 50 mcg (2,000 unit) cap Take 1 capsule by mouth once daily. albuterol HFA (VENTOLIN HFA) 90 mcg/actuation inhaler Inhale 2 Puffs as instructed every 4 hours as needed for wheezing/shortness of breath. Prescribed by pulmonlogist tiotropium bromide (SPIRIVA RESPIMAT) 2.5 mcg/actuation inhaler Inhale 2 Puffs as instructed once daily. Inhale two puffs once daily. albuterol (PROVENTIL) 2.5 mg /3 mL (0.083 %) nebulizer solution Use 3 mL via nebulizer every 4 hours as needed for wheezing/shortness of breath. Use over 5-15minutes. mometasone-formoterol (DULERA) 50-5 mcg/actuation HFA aerosol inhaler Inhale 2 Puffs as instructed two times a day. lisinopril (ZESTRIL) 5 mg tablet Take 1 tablet by mouth once daily. celecoxib 400 mg capsule Take 1 capsule by mouth once daily. Take with a meal. For neck and knee pain PAST MEDICAL HISTORY Diagnosis Date asthma Esophageal reflux hearing loss left ear deafness Hypertension Social History Tobacco Use Smoking status: Former Current packs/day: 0.00 Average packs/day: 2.0 packs/day for 25.0 years (50.0 ttl pk-yrs) Types: Cigarettes Start date: 11/13/1969 Quit date: 11/13/1994 Years since quittin.1 Smokeless tobacco: Never Tobacco comments: quit 25 years ago Vaping Use Vaping status: Never Used Substance Use Topics Alcohol use: Not Currently Comment: occasional beer Drug use: No Latest Ref [facility] 09/03/2024 WBC 3.70 - 11.00 k/uL 8.25 RBC 4.20 - 6.00 m/uL 4.73 Hemoglobin 13.0 - 17.0 g/dL 14.8 Hematocrit 39.0 - 51.0 % 43.8 MCV 80.0 - 100.0 fL 92.6 MCH 26.0 - 34.0 pg 31.3 MCHC 30.5 - 36.0 g/dL 33.8 RDW-CV 11.5 - 15.0 % 13.0 Platelet Count 150 - 400 k/uL 229 MPV 9.0 - 12.7 fL 12.0 Neut% % 52.8 Abs Neut (ANC) 1.45 - 7.50 k/uL 4.35 Lymph% % 29.3 Abs Lymph 1.00 - 4.00 k/uL 2.42 Craven% % 10.9 Abs Craven <0.87 k/uL 0.90 (H) Eosin% % 5.6 Abs Eosin <0.46 k/uL 0.46 (H) Baso% % 0.6 Abs Baso <0.11 k/uL 0.05 Immature Gran % % 0.8 IMMATURE GRANS (ABS) <0.10 k/uL 0.07 NRBC /100 WBC 0.0 Absolute nRBC <0.01 k/uL <0.01 DTYPE Auto Protein, Total 6.3 - 8.0 g/dL 7.5 Albumin 3.9 - 4.9 g/dL 4.3 Calcium 8.5 - 10.2 mg/dL 9.4 Bilirubin, Total 0.2 - 1.3 mg/dL 0.3 Alkaline Phosphatase 38 - 113 U/L 78 AST 14 - 40 U/L 32 ALT 10 - 54 U/L 27 Glucose 74 - 99 mg/dL 99 BUN 9 - 24 mg/dL 20 Creatinine 0.73 - 1.22 mg/dL 0.98 Sodium 136 - 144 mmol/L 141 Potassium 3.7 - 5.1 mmol/L 3.9 Chloride 98 - 107 mmol/L 104 CO2 22 - 30 mmol/L 26 Anion Gap 8 - 15 mmol/L 11 eGFR >=60 mL/min/1.73m 89 Hemoglobin A1C 4.3 - 5.6 % 5.4 Estimated Average Glucose mg/dL 108 Magnesium 1.7 - 2.3 mg/dL 2.2 Vitamin D 25 Hydroxy 31.0 - 80.0 ng/mL 20.0 (L) TSH 0.270 - 4.200 mIU/L 3.460 PSA Screening <2.60 ng/mL 0.35 Alpha 1 Antitrypsin 90 - 200 mg/dL 155 WSR 0 - 15 mm/hr 27 (H) CRP <0.9 mg/dL 0.5 RAGHAVENDRA Negative Negative Rheumatoid Factor <16 IU/mL <10 ASSESSMENT/PLAN: 1. Chronic pain of right knee - ICD9: 719.46, 338.29, ICD10: M25.561, G89.29 (primary diagnosis) Xray of the right knee for patient shows severe arthritis Notes somewhat improved with recent treatment.Endorse RICE. Gentle ROM. He declined an injection in the right knee. Endorse following up with orthopedics if he changes his mind. Endorse weight loss, will refer to dietitian. Will increase his dose of celecoxib. 2. Chronic obstructive pulmonary disease (HCC) - ICD9: 496, ICD10: J44.9 Due for a recheck, suspect obesity contributing to shortness of breath on exertion. Continue current treatment. - SPIROMETRY - BASELINE AND POST DILATOR - OXIMETRY WITH AMBULATION 3. . Gastroesophageal reflux disease, unspecified whether esophagitis present - ICD9: 530.81, ICD10: K21.9 Currently without heartburn or right upper quadrant pain. Continue with mild diet and PPI unchanged for now. Remain off soda as this seems to be contributing. 4 Obesity, Class III, BMI 40-49.9 (morbid obesity) (HCC) - ICD9: 278.01, ICD10: E66.01 Provided with 1500-calorie. diet as a guideline. Discussed decreasing portion sizes, increase protein at each meal, switch out potatoes and bread for vegetables. Endorse daily activity as able such as chair exercises to help with weight loss. Referring to dietitian. Pura Leon APRN.CNS Medical Decision Making: Problems: Moderate: 2+ stable chronic illnesses Risk: Moderate: Drug management Medical Decision Making Level: 4 - Moderate documented in this encounter [facility] 12-16-2024 Note HNO ID: [id number] Author: PURA LEON APRN.MAINTENANCE PERSON Service: ? Author Type: Nurse Specialist Type: Progress Notes Filed: 12/16/2024 14:22 Note Text: SUBJECTIVE: Spirometry Never done Pneumococcal Vaccine: 50+(1 of 2 - PCV) Never done Colorectal Cancer Screening Never done HPI Nancie Ruano is a 58 year old male. PMH signficant for ACTIVE PROBLEM LIST Unspecified Hearing Loss Obesity, Class Iii, Bmi 40-49.9 (Morbid Obesity) (Hcc) Tobacco Use Disorder [place] On Cpap Esophageal Reflux Umbilical Hernia Without Mention of Obstruction Or Gangrene Other Ventral Hernia Without Mention of Obstruction Or Gangrene Essential Hypertension, Benign S/P Total Knee Replacement Pain in Joint, Lower Leg Weight Gain Chronic Obstructive Pulmonary Disease (Hcc) Presents for routine visit. Since last seen he had an orthopedic appointment. Discussed corticosteroid injection in the right knee which he declined. Weight loss was endorsed. He googled what calorie amount he should eat and came up with 2500 to 3000/day. His weight is increased since he was last seen. He canceled pulmonary function testing which was scheduled. He notes neck and knee pain are somewhat improved with the current treatment. He has a history of left total knee replacement. Does note continued right knee pain worse with walking any distance. Does have some swelling at the knee. Notes decreased range of motion at the knee. Notes celebrex did help when he took two a day. He notes currently without heartburn or RUQ discomfort. Current PPI use. No report of abdominal pain nausea vomiting diarrhea constipation BRBPR black or tarry stool.Notes stopping soda seemed to help a lot. History of FREDERICK not currently using CPAP. Reports trouble with wearing this in the past so he returned it. Thinks he had sleep study at [facility] onsite. He reports transportation insecurity, has an appointment to discuss Social Security disability and not sure how we will get the area. Does not know if his health insurance covers transportation to appointments. He notes chronically short of breath on exertion. No recent PFT. Appears last check 2019 [facility] with ambulatory oximetry. Review of Systems Constitutional: Negative. Respiratory: Positive for shortness of breath (stable SOBOE). Gastrointestinal: Negative. Musculoskeletal: Positive for arthralgias. Objective BP 115/72 Pulse 99 Resp 16 Wt (!) 159 kg (350 lb 8.5 oz) BMI 51.76 kg/m? Physical Exam Vitals and nursing note reviewed. Constitutional: Appearance: Normal appearance. HENT: Head: Normocephalic and atraumatic. Eyes: Conjunctiva/sclera: Conjunctivae normal. Neck: Thyroid: No thyromegaly. Vascular: Normal carotid pulses. No JVD. Cardiovascular: Rate and Rhythm: Normal rate and regular rhythm. Pulmonary: Effort: Pulmonary effort is normal. Breath sounds: Normal breath sounds. Abdominal: General: Bowel sounds are normal. Palpations: Abdomen is soft. Musculoskeletal: Cervical back: Muscular tenderness present. Decreased range of motion. Right knee: Swelling present. Decreased range of motion. Tenderness present. Skin: General: Skin is warm and dry. Neurological: General: No focal deficit present. Mental Status: He is alert and oriented to person, place, and time. ALLERGIES Allergen Reactions Hctz [Lisinopril-Hy* Other: See Comments dizziness Penicillins Other: See Comments passed Out Loss of consciousness Medication hydroCHLOROthiazide 25 mg tablet Take 1 tablet by mouth once daily. omeprazole (PRILOSEC) 20 mg capsule Take 1 capsule by mouth daily before breakfast. 1/2 hr before meal. cyclobenzaprine (FLEXERIL) 10 mg tablet Take 1 tablet by mouth at bedtime as needed for muscle spasm or pain. Cholecalciferol, Vitamin D3, 50 mcg (2,000 unit) cap Take 1 capsule by mouth once daily. albuterol HFA (VENTOLIN HFA) 90 mcg/actuation inhaler Inhale 2 Puffs as instructed every 4 hours as needed for wheezing/shortness of breath. Prescribed by pulmonlogist tiotropium bromide (SPIRIVA RESPIMAT) 2.5 mcg/actuation inhaler Inhale 2 Puffs as instructed once daily. Inhale two puffs once daily. albuterol (PROVENTIL) 2.5 mg /3 mL (0.083 %) nebulizer solution Use 3 mL via nebulizer every 4 hours as needed for wheezing/shortness of breath. Use over 5-15minutes. mometasone-formoterol (DULERA) 50-5 mcg/actuation HFA aerosol inhaler Inhale 2 Puffs as instructed two times a day. lisinopril (ZESTRIL) 5 mg tablet Take 1 tablet by mouth once daily. celecoxib 400 mg capsule Take 1 capsule by mouth once daily. Take with a meal. For neck and knee pain PAST MEDICAL HISTORY Diagnosis Date asthma Esophageal reflux hearing loss left ear deafness Hypertension Social History Tobacco Use Smoking status: Former Current packs/day: 0.00 Average packs/day: 2.0 packs/day for 25.0 years (50.0 ttl pk-yrs) Types: Cigarettes Start d (more content not included)... [facility] 12-02-2024 Note HNO ID: [id number] Author: GRISELDA MADISON PA-C Service: ? Author Type: Physician Penology Teacher Type: Progress Notes Filed: 12/02/2024 12:22 Note Text: rGiselda Madison PA-C Department of Orthopaedics Orthopaedics [address] [place] [address] Dept: [phone] Dept December 02, 2024 CHIEF COMPLAINT: New and Knee Pain of the Right Knee and Referred by Mya Andrea Mr. Nancie Ruano is a 58 year old male who presents with pain in his right knee which has been getting progressively worse over the past several years. Pain is a 6 out of 10 aching that is worse with most activities. The patient has difficulty walking even short distances secondary to his knee pain and also some issues with breathing. He also has a hard time finding a comfortable position for rest, extending the knee while seated does help relieve some of his discomfort. He ambulates with the assistance of a cane. He takes intermittent ibuprofen and Tylenol which is only somewhat helpful. The patient has COPD, he reports to me that he gets short of breath even walking short distances around his home. He is not on oxygen but uses multiple inhalers. He has not worked outside the home in several years, he reports that he is in the process of trying to file for disability. He is status post left total knee arthroplasty in the with Dr. Jeovany Collins. ASSESSMENT: M17.11 Primary osteoarthritis of right knee PLAN: Offer the patient a corticosteroid injection today for the right knee osteoarthritis, he declines. We did discuss that his weight is an issue that will likely lead to worsening osteoarthritis of the right knee and we will also keep him from pursuing total joint arthroplasty on the right in the future. Since he is quite limited in his functional capacity because of his COPD we discussed potentially seeing a dietitian to work on diet to help with weight control. I am happy to see him back at any time that he would like to try corticosteroid injection. Will continue to monitor patient for Primary osteoarthritis of right knee, patient to schedule visit as per follow up discussed. Mr. Nancie Ruano was advised as to contrast therapies and/or to take analgesics/anti-inflammatories as needed and all contraindications were reviewed. OBJECTIVE: Mr. Nancie Ruano is a pleasant 58 year old in no apparent distress. Gen:There were no vitals taken for this visit. nl development, obese, no deformities ENT: Normocephalic, normal hearing, moist mucosa CV: Pulses:DP/PT= 2+ and symmetric, capillary refill < 2 secs, no peripheral edema/varicosities Skin: no rash, bruising or lesions. Good turgor. Psych: cooperative and appropriate, alert and oriented x 3, good mood and affect. Musculoskeletal: KNEE EXAM: Right: Alignment: Neutral Range of motion is 5 degrees in extension and 100 degrees of flexion. Extension Lag: < 10 degrees Pain with ROM: Yes Effusion: Slight Tender to the palpation of Medial femoral condyle and Medial joint line Pain with patellar compression: No Stability: Anterior/Posterior stable and Varus/Valgus stable Hip Exam: flexion to 100+ degrees, full extension, internal/external rotation adequate, and no pain with log roll Neurovascular Status: Sensation Intact, Moves foot and ankle up AND down, and 2+ dorsalis pedis Imaging: IMPRESSION: Significant osteoarthrosis, showing interval progression Bone Char Kiln Operator: JORGE A Transcribe Date/Time: Sep 07 2024 4:03P Dictated by : NERISSA MILLER MD This examination was interpreted and the report reviewed and electronically signed by: NERISSA MILLER MD on Sep 07 2024 4:04PM EST Results-Findings * * *Final Report* * * DATE OF EXAM: Sep 03 2024 4:25PM WOX 5207 - XR KNEE 2V AP/LAT RT / PROCEDURE REASON: Arthralgia of multiple joints * * * * Physician Interpretation * * * * PROCEDURE: Right knee INDICATION: Arthralgia of multiple joints .Chronic right knee TECHNIQUE: XR KNEE 2V AP/LAT RT COMPARISON: 09/01/2023 FINDINGS: Severe medial joint compartment narrowing with tricompartment spur formation and genu valgus varus. Subchondral cystic change bridging the medial joint compartment. No fracture or joint effusion. Left TKA is evident. Supporting Subjective Information Below: Past Surgical History: PAST SURGICAL HISTORY Procedure Laterality Date PAST SURGICAL HISTORY OF left ear surgery PAST SURGICAL HISTORY OF left leg crushed injury Medications: Current Outpatient Medications Medication Sig hydroCHLOROthiazide 25 mg tablet Take 1 tablet by mouth once daily. omeprazole (PRILOSEC) 20 mg capsule Take 1 capsule by mouth daily before breakfast. 1/2 hr before meal. cyclobenzaprine (FLEXERIL) 10 mg tablet Take 1 tablet by mouth at bedtime as needed for muscle spasm or pain. Cholecalciferol, Vitamin D3, 50 mcg (2,000 unit) cap Take 1 capsule by mouth once daily. (more content not included)... [facility] 12-02-2024 History of Presen t illness Narrative Griselda Madison PA-C Department of Orthopaedics Orthopaedics [address] [facility], [place] [address] Dept: [phone] Dept December 02, 2024 CHIEF COMPLAINT: New and Knee Pain of the Right Knee and Referred by Mya Andrea Mr. Nancie Ruano is a 58 year old male who presents with pain in his right knee which has been getting progressively worse over the past several years. Pain is a 6 out of 10 aching that is worse with most activities. The patient has difficulty walking even short distances secondary to his knee pain and also some issues with breathing. He also has a hard time finding a comfortable position for rest, extending the knee while seated does help relieve some of his discomfort. He ambulates with the assistance of a cane. He takes intermittent ibuprofen and Tylenol which is only somewhat helpful. The patient has COPD, he reports to me that he gets short of breath even walking short distances around his home. He is not on oxygen but uses multiple inhalers. He has not worked outside the home in several years, he reports that he is in the process of trying to file for disability. He is status post left total knee arthroplasty in the with Dr. Jeovany Collins. ASSESSMENT: M17.11 Primary osteoarthritis of right knee PLAN: Offer the patient a corticosteroid injection today for the right knee osteoarthritis, he declines. We did discuss that his weight is an issue that will likely lead to worsening osteoarthritis of the right knee and we will also keep him from pursuing total joint arthroplasty on the right in the future. Since he is quite limited in his functional capacity because of his COPD we discussed potentially seeing a dietitian to work on diet to help with weight control. I am happy to see him back at any time that he would like to try corticosteroid injection. Will continue to monitor patient for Primary osteoarthritis of right knee, patient to schedule visit as per follow up discussed. Mr. Nancie Ruano was advised as to contrast therapies and/or to take analgesics/anti-inflammatories as needed and all contraindications were reviewed. OBJECTIVE: Mr. Nancie Ruano is a pleasant 58 year old in no apparent distress. Gen:There were no vitals taken for this visit. nl development, obese, no deformities ENT: Normocephalic, normal hearing, moist mucosa CV: Pulses:DP/PT= 2+ and symmetric, capillary refill < 2 secs, no peripheral edema/varicosities Skin: no rash, bruising or lesions. Good turgor. Psych: cooperative and appropriate, alert and oriented x 3, good mood and affect. Musculoskeletal: KNEE EXAM: Right: Alignment: Neutral Range of motion is 5 degrees in extension and 100 degrees of flexion. Extension Lag: < 10 degrees Pain with ROM: Yes Effusion: Slight Tender to the palpation of Medial femoral condyle and Medial joint line Pain with patellar compression: No Stability: Anterior/Posterior stable and Varus/Valgus stable Hip Exam: flexion to 100+ degrees, full extension, internal/external rotation adequate, and no pain with log roll Neurovascular Status: Sensation Intact, Moves foot and ankle up & down, and 2+ dorsalis pedis Imaging: IMPRESSION: Significant osteoarthrosis, showing interval progression Bone Char Kiln Operator: [facility] Transcribe Date/Time: Sep 07 2024 4:03P Dictated by : NERISSA MILLER MD This examination was interpreted and the report reviewed and electronically signed by: NERISSA MILLER MD on Sep 07 2024 4:04PM EST Results-Findings * * *Final Report* * * DATE OF EXAM: Sep 03 2024 4:25PM WOX 5207 - XR KNEE 2V AP/LAT RT / PROCEDURE REASON: Arthralgia of multiple joints * * * * Physician Interpretation * * * * PROCEDURE: Right knee INDICATION: Arthralgia of multiple joints .Chronic right knee TECHNIQUE: XR KNEE 2V AP/LAT RT COMPARISON: 09/01/2023 FINDINGS: Severe medial joint compartment narrowing with tricompartment spur formation and genu valgus varus. Subchondral cystic change bridging the medial joint compartment. No fracture or joint effusion. Left TKA is evident. Supporting Subjective Information Below: Past Surgical History: PAST SURGICAL HISTORY Procedure Laterality Date PAST SURGICAL HISTORY OF left ear surgery PAST SURGICAL HISTORY OF left leg crushed injury Medications: Current Outpatient Medications Medication Sig hydroCHLOROthiazide 25 mg tablet Take 1 tablet by mouth once daily. omeprazole (PRILOSEC) 20 mg capsule Take 1 capsule by mouth daily before breakfast. 1/2 hr before meal. cyclobenzaprine (FLEXERIL) 10 mg tablet Take 1 tablet by mouth at bedtime as needed for muscle spasm or pain. Cholecalciferol, Vitamin D3, 50 mcg (2,000 unit) cap Take 1 capsule by mouth once daily. albuterol HFA (VENTOLIN HFA) 90 mcg/actuation inhaler Inhale 2 Puffs as instructed every 4 hours as needed for wheezing/shortness of breath. Prescribed by pulmonlogist tiotropium bromide (SPIRIVA RESPIMAT) 2.5 mcg/actuation inhaler Inhale 2 Puffs as instructed once daily. Inhale two puffs once daily. albuterol (PROVENTIL) 2.5 mg /3 mL (0.083 %) nebulizer solution Use 3 mL via nebulizer every 4 hours as needed for wheezing/shortness of breath. Use over 5-15minutes. mometasone-formoterol (DULERA) 50-5 mcg/actuation HFA aerosol inhaler Inhale 2 Puffs as instructed two times a day. lisinopril (ZESTRIL) 5 mg tablet Take 1 tablet by mouth once daily. No current facility-administered medications for this visit. Allergies: Hctz [Lisinopril-Hydrochlorothiazide] and Penicillins ROS: General (negative for fatigue, malaise, weight loss/gain) HEENT (negative for headache, earache, recent vision changes, sinus pain, sore throat) Respiratory (no recent shortness of breath, hemoptysis) CV (negative for chest tightness, palpitations) Musculoskeletal (see HPI) Psych (no depression, anxiety) This note was partially generated using Jogli voice recognition system, and there may be some incorrect words, spellings, and punctuation that were not noted in checking the note before saving. Griselda Madison PA-C Patient presents with: Right Knee - New, Knee Pain Referred by Mya [facility] [employer] [facility] Pain Pain Level: 6 Pain Location: Knee-Right Description: Sharp Duration Amount of Time: 1 Duration Units: Years Frequency: Continuous Intervention/Comfort measure: Medication Patient states he is having pain in his knee cap area. He is having difficulty going up and down steps. He uses a cane to ambulate. Patient was given prednisone in August for his knee pain and help some. Patient is currently not working and has filed for SSI. Taking Tylenol for the pain and helps take the edge off. X-rays done on 09/03/24. documented in this encounter [facility] 12-02-2024 Note HNO ID: [id number] Author: MAVIS GOMEZ MA Service: ? Author Type: Rough Patcher Type: Progress Notes Filed: 12/02/2024 12:22 Note Text: Patient presents with: Right Knee - New, Knee Pain Referred by Mya [facility] Pain Pain Level: 6 Pain Location: Knee-Right Description: Sharp Duration Amount of Time: 1 Duration Units: Years Frequency: Continuous Intervention/Comfort measure: Medication Patient states he is having pain in his knee cap area. He is having difficulty going up and down steps. He uses a cane to ambulate. Patient was given prednisone in August for his knee pain and help some. Patient is currently not working and has filed for SSI. Taking Tylenol for the pain and helps take the edge off. X-rays done on 09/03/24. [facility] 11-11-2024 Telephone encounter Note The following approved medication requests have been transmitted electronically. Requested Prescriptions Pending Prescriptions Disp Refills hydroCHLOROthiazide 25 mg tablet 30 tablet 5 Sig: Take 1 tablet by mouth once daily. Carlos Garcia MD [facility] 11-11-2024 Miscellaneous Notes The following approved medication requests have been transmitted electronically. Requested Prescriptions Pending Prescriptions Disp Refills hydroCHLOROthiazide 25 mg tablet 30 tablet 5 Sig: Take 1 tablet by mouth once daily. Carlos Garcia MD Prescription Refill Information The patient has been identified by name and date of : Yes Caregiver verified no other encounters exist for this prescription request: Yes Caregiver confirmed with patient/requestor that no other refills are due, in the near future, with this provider at this time: Yes The last office visit in the department: 10/15/24 Does the patient have a future office visit with this provider/department: Yes 12/16/24 Requested Prescriptions Pending Prescriptions Disp Refills hydroCHLOROthiazide 25 mg tablet 30 tablet 5 Sig: Take 1 tablet by mouth once daily. Romana Hutton LPN November 11, 2024 8:17 AM documented in this encounter [facility] 11-11-2024 Telephone encounter Note Prescription Refill Information The patient has been identified by name and date of : Yes Caregiver verified no other encounters exist for this prescription request: Yes Caregiver confirmed with patient/requestor that no other refills are due, in the near future, with this provider at this time: Yes The last office visit in the department: 10/15/24 Does the patient have a future office visit with this provider/department: Yes 12/16/24 Requested Prescriptions Pending Prescriptions Disp Refills hydroCHLOROthiazide 25 mg tablet 30 tablet 5 Sig: Take 1 tablet by mouth once daily. Romana Hutton LPN November 11, 2024 8:17 AM [facility] 10-21-2024 Telephone encounter Note Sw left 2nd message for call to be returned to discuss transportation resources. [facility] 10-21-2024 Miscellaneous Notes Sw left 2nd message for call to be returned to discuss transportation resources. Sw called and left message for return call to discuss transportation. Alessia reviewed [facility] Medicaid and transportation benefits to medical appts were noted on website. documented in this encounter [facility] 10-17-2024 Telephone encounter Note Alessia called and left message for return call to discuss transportation. Alessia reviewed [facility] Medicaid and transportation benefits to medical appts were noted on website. [facility] 10-15-2024 Instructions Pura Leon APRN.CNS - 10/15/2024 3:33 PM EST Check your insurance to see if you can get transportation to appointments. Our aids social worker Socrates will give you a call to see if there is anything she can do to help with transporation. Check your insurance to see if your insurance covers a pharmacy that delivers medication such as [place] Start taking omeprazole once daily before breakfast to help with heartburn. Try taking Celebrex once daily for neck and knee pain. You can take this with your breakfast. Try taking cyclobenzaprine at bedtime for neck pain. documented in this encounter [facility] 10-15-2024 Note HNO ID: [id number] Author: PURA LEON APRN.CNS Service: ? Author Type: Nurse Specialist Type: Progress Notes Filed: 10/15/2024 16:09 Note Text: SUBJECTIVE: Pneumococcal Vaccine(1 of 2 - PCV) Never done Spirometry Never done DTaP,Tdap,Td Vaccine(1 - Tdap) Never done Colorectal Cancer Screening Never done Shingrix Vaccine(1 of 2) Never done BP Controlled (<130/80) due on 01/20/2024 Covid-19 Vaccine(2023- season) Never done HPI Nancie Ruano is a 58 year old male. H signficant for ACTIVE PROBLEM LIST Unspecified Hearing Loss Obesity, Class Iii, Bmi 40-49.9 (Morbid Obesity) (Hcc) Tobacco Use Disorder [place] On Cpap Esophageal Reflux Umbilical Hernia Without Mention of Obstruction Or Gangrene Other Ventral Hernia Without Mention of Obstruction Or Gangrene Essential Hypertension, Benign S/P Total Knee Replacement Pain in Joint, Lower Leg Weight Gain Chronic Obstructive Pulmonary Disease (Hcc) He notes neck and knee pain are somewhat improved with the current treatment. He has a history of left total knee replacement. Notes some muscle relaxer and prednisone were helpful. Does note continued left knee pain worse with walking any distance. Does have some swelling at the knee. Notes decreased range of motion at the knee. He notes currently with heartburn, RUQ discomfort. No current PPI use. No report of abdominal pain nausea vomiting diarrhea constipation BRBPR black or tarry stool. History of FREDERICK not currently using CPAP. Reports trouble with wearing this in the past so he returned it. Thinks he had sleep study at [facility] onsite. He reports transportation insecurity, has an appointment to discuss Social Security disability and not sure how we will get the area. Does not know if his health insurance covers transportation to appointments. He notes chronically short of breath on exertion. No recent PFT. Appears last check 2019 [facility] with ambulatory oximetry. Review of Systems Objective BP 122/71 Pulse 99 Resp 16 Wt (!) 158.2 kg (348 lb 12.3 oz) SpO2 94% BMI 51.50 kg/m? Physical Exam Vitals and nursing note reviewed. Constitutional: Appearance: Normal appearance. HENT: Head: Normocephalic and atraumatic. Eyes: Conjunctiva/sclera: Conjunctivae normal. Neck: Thyroid: No thyromegaly. Vascular: Normal carotid pulses. No JVD. Cardiovascular: Rate and Rhythm: Normal rate and regular rhythm. Pulmonary: Effort: Pulmonary effort is normal. Breath sounds: Normal breath sounds. Abdominal: General: Bowel sounds are normal. Palpations: Abdomen is soft. Musculoskeletal: Cervical back: Muscular tenderness present. Decreased range of motion. Right knee: Swelling present. Decreased range of motion. Tenderness present. Skin: General: Skin is warm and dry. Neurological: General: No focal deficit present. Mental Status: He is alert and oriented to person, place, and time. ALLERGIES Allergen Reactions Hctz [Lisinopril-Hy* Other: See Comments dizziness Penicillins Other: See Comments passed Out Loss of consciousness Medication Cholecalciferol, Vitamin D3, 50 mcg (2,000 unit) cap Take 1 capsule by mouth once daily. albuterol HFA (VENTOLIN HFA) 90 mcg/actuation inhaler Inhale 2 Puffs as instructed every 4 hours as needed for wheezing/shortness of breath. Prescribed by pulmonlogist tiotropium bromide (SPIRIVA RESPIMAT) 2.5 mcg/actuation inhaler Inhale 2 Puffs as instructed once daily. Inhale two puffs once daily. albuterol (PROVENTIL) 2.5 mg /3 mL (0.083 %) nebulizer solution Use 3 mL via nebulizer every 4 hours as needed for wheezing/shortness of breath. Use over 5-15minutes. mometasone-formoterol (DULERA) 50-5 mcg/actuation HFA aerosol inhaler Inhale 2 Puffs as instructed two times a day. lisinopril (ZESTRIL) 5 mg tablet Take 1 tablet by mouth once daily. hydroCHLOROthiazide 25 mg tablet Take 1 tablet by mouth once daily. predniSONE (DELTASONE) 20 mg tablet 1 tablet three times a day for 3 days, then 2 times a day for 3 days, the one daily for 3 days. (Patient not taking: Reported on 10/15/2024) PAST MEDICAL HISTORY Diagnosis Date asthma Esophageal reflux hearing loss left ear deafness Hypertension Social History Tobacco Use Smoking status: Former Current packs/day: 0.00 Average packs/day: 2.0 packs/day for 25.0 years (50.0 ttl pk-yrs) Types: Cigarettes Start date: 11/13/1969 Quit date: 11/13/1994 Years since quittin.9 Smokeless tobacco: Never Tobacco comments: quit 25 years ago Substance Use Topics Alcohol use: Yes Comment: occasional beer Drug use: No Latest Ref Rng 09/03/2024 WBC 3.70 - 11.00 k/uL 8.25 RBC 4.20 - 6.00 m/uL 4.73 Hemoglobin 13.0 - 17.0 g/dL 14.8 Hematocrit 39.0 - 51.0 % 43.8 MCV 80.0 - 100.0 fL 92.6 MCH 26.0 - 34.0 pg 31.3 MCHC 30.5 - 36.0 g/dL 33.8 RDW-CV 11.5 - 15.0 % 13.0 Platelet Count 150 - 400 k/uL 229 MPV 9.0 - 12.7 fL 12.0 (more content not included)... [facility] 10-15-2024 History of Presen t illness Narrative SUBJECTIVE: Pneumococcal Vaccine(1 of 2 - PCV) Never done Spirometry Never done DTaP,Tdap,Td Vaccine(1 - Tdap) Never done Colorectal Cancer Screening Never done Shingrix Vaccine(1 of 2) Never done BP Controlled (<130/80) due on 01/20/2024 Covid-19 Vaccine(2023- season) Never done HPI Nancie Ruano is a 58 year old male. H signficant for ACTIVE PROBLEM LIST Unspecified Hearing Loss Obesity, Class Iii, Bmi 40-49.9 (Morbid Obesity) ([facility]) Tobacco Use Disorder [place] On Cpap Esophageal Reflux Umbilical Hernia Without Mention of Obstruction Or Gangrene Other Ventral Hernia Without Mention of Obstruction Or Gangrene Essential Hypertension, Benign S/P Total Knee Replacement Pain in Joint, Lower Leg Weight Gain Chronic Obstructive Pulmonary Disease (Hcc) He notes neck and knee pain are somewhat improved with the current treatment. He has a history of left total knee replacement. Notes some muscle relaxer and prednisone were helpful. Does note continued left knee pain worse with walking any distance. Does have some swelling at the knee. Notes decreased range of motion at the knee. He notes currently with heartburn, RUQ discomfort. No current PPI use. No report of abdominal pain nausea vomiting diarrhea constipation BRBPR black or tarry stool. History of FREDERICK not currently using CPAP. Reports trouble with wearing this in the past so he returned it. Thinks he had sleep study at [facility] onsite. He reports transportation insecurity, has an appointment to discuss Social Security disability and not sure how we will get the area. Does not know if his health insurance covers transportation to appointments. He notes chronically short of breath on exertion. No recent PFT. Appears last check 2019 [facility] with ambulatory oximetry. Review of Systems Objective BP 122/71 Pulse 99 Resp 16 Wt (!) 158.2 kg (348 lb 12.3 oz) SpO2 94% BMI 51.50 kg/m Physical Exam Vitals and nursing note reviewed. Constitutional: Appearance: Normal appearance. HENT: Head: Normocephalic and atraumatic. Eyes: Conjunctiva/sclera: Conjunctivae normal. Neck: Thyroid: No thyromegaly. Vascular: Normal carotid pulses. No JVD. Cardiovascular: Rate and Rhythm: Normal rate and regular rhythm. Pulmonary: Effort: Pulmonary effort is normal. Breath sounds: Normal breath sounds. Abdominal: General: Bowel sounds are normal. Palpations: Abdomen is soft. Musculoskeletal: Cervical back: Muscular tenderness present. Decreased range of motion. Right knee: Swelling present. Decreased range of motion. Tenderness present. Skin: General: Skin is warm and dry. Neurological: General: No focal deficit present. Mental Status: He is alert and oriented to person, place, and time. ALLERGIES Allergen Reactions Hctz [Lisinopril-Hy* Other: See Comments dizziness Penicillins Other: See Comments passed Out Loss of consciousness Medication Cholecalciferol, Vitamin D3, 50 mcg (2,000 unit) cap Take 1 capsule by mouth once daily. albuterol HFA (VENTOLIN HFA) 90 mcg/actuation inhaler Inhale 2 Puffs as instructed every 4 hours as needed for wheezing/shortness of breath. Prescribed by pulmonlogist tiotropium bromide (SPIRIVA RESPIMAT) 2.5 mcg/actuation inhaler Inhale 2 Puffs as instructed once daily. Inhale two puffs once daily. albuterol (PROVENTIL) 2.5 mg /3 mL (0.083 %) nebulizer solution Use 3 mL via nebulizer every 4 hours as needed for wheezing/shortness of breath. Use over 5-15minutes. mometasone-formoterol (DULERA) 50-5 mcg/actuation HFA aerosol inhaler Inhale 2 Puffs as instructed two times a day. lisinopril (ZESTRIL) 5 mg tablet Take 1 tablet by mouth once daily. hydroCHLOROthiazide 25 mg tablet Take 1 tablet by mouth once daily. predniSONE (DELTASONE) 20 mg tablet 1 tablet three times a day for 3 days, then 2 times a day for 3 days, the one daily for 3 days. (Patient not taking: Reported on 10/15/2024) PAST MEDICAL HISTORY Diagnosis Date asthma Esophageal reflux hearing loss left ear deafness Hypertension Social History Tobacco Use Smoking status: Former Current packs/day: 0.00 Average packs/day: 2.0 packs/day for 25.0 years (50.0 ttl pk-yrs) Types: Cigarettes Start date: 11/13/1969 Quit date: 11/13/1994 Years since quittin.9 Smokeless tobacco: Never Tobacco comments: quit 25 years ago Substance Use Topics Alcohol use: Yes Comment: occasional beer Drug use: No Latest Ref Rng 09/03/2024 WBC 3.70 - 11.00 k/uL 8.25 RBC 4.20 - 6.00 m/uL 4.73 Hemoglobin 13.0 - 17.0 g/dL 14.8 Hematocrit 39.0 - 51.0 % 43.8 MCV 80.0 - 100.0 fL 92.6 MCH 26.0 - 34.0 pg 31.3 MCHC 30.5 - 36.0 g/dL 33.8 RDW-CV 11.5 - 15.0 % 13.0 Platelet Count 150 - 400 k/uL 229 MPV 9.0 - 12.7 fL 12.0 Neut% % 52.8 Abs Neut (ANC) 1.45 - 7.50 k/uL 4.35 Lymph% % 29.3 Abs Lymph 1.00 - 4.00 k/uL 2.42 Craven% % 10.9 Abs Craven <0.87 k/uL 0.90 (H) Eosin% % 5.6 Abs Eosin <0.46 k/uL 0.46 (H) Baso% % 0.6 Abs Baso <0.11 k/uL 0.05 Immature Gran % % 0.8 IMMATURE GRANS (ABS) <0.10 k/uL 0.07 NRBC /100 WBC 0.0 Absolute nRBC <0.01 k/uL <0.01 DTYPE Auto Protein, Total 6.3 - 8.0 g/dL 7.5 Albumin 3.9 - 4.9 g/dL 4.3 Calcium 8.5 - 10.2 mg/dL 9.4 Bilirubin, Total 0.2 - 1.3 mg/dL 0.3 Alkaline Phosphatase 38 - 113 U/L 78 AST 14 - 40 U/L 32 ALT 10 - 54 U/L 27 Glucose 74 - 99 mg/dL 99 BUN 9 - 24 mg/dL 20 Creatinine 0.73 - 1.22 mg/dL 0.98 Sodium 136 - 144 mmol/L 141 Potassium 3.7 - 5.1 mmol/L 3.9 Chloride 98 - 107 mmol/L 104 CO2 22 - 30 mmol/L 26 Anion Gap 8 - 15 mmol/L 11 eGFR >=60 mL/min/1.73m 89 Hemoglobin A1C 4.3 - 5.6 % 5.4 Estimated Average Glucose mg/dL 108 Magnesium 1.7 - 2.3 mg/dL 2.2 Vitamin D 25 Hydroxy 31.0 - 80.0 ng/mL 20.0 (L) TSH 0.270 - 4.200 mIU/L 3.460 PSA Screening <2.60 ng/mL 0.35 Alpha 1 Antitrypsin 90 - 200 mg/dL 155 WSR 0 - 15 mm/hr 27 (H) CRP <0.9 mg/dL 0.5 RAGHAVENDRA Negative Negative Rheumatoid Factor <16 IU/mL <10 ASSESSMENT/PLAN: 1. Chronic pain of right knee - ICD9: 719.46, 338.29, ICD10: M25.561, G89.29 (primary diagnosis) Xray of the right knee for patient shows severe arthritis Notes somewhat improved with recent treatment.Endorse RICE. Gentle ROM. Keep orthopedic appt. Provided with kristi wrap x2. Try celecoxib 2. Chronic obstructive pulmonary disease (HCC) - ICD9: 496, ICD10: J44.9 Due for a recheck, suspect obesity contributing to shortness of breath on exertion. Continue current treatment. - SPIROMETRY - BASELINE AND POST DILATOR - OXIMETRY WITH AMBULATION 3. Cervicalgia - ICD9: 723.1, ICD10: M54.2 Notes somewhat improved with recent treatment XR shows severe disc narrowing - CYCLOBENZAPRINE 10 MG TABLET - [facility] 4. Gastroesophageal reflux disease, unspecified whether esophagitis present - ICD9: 530.81, ICD10: K21.9 Notes heartburn, recommend resuming PPI 5. Obesity, Class III, BMI 40-49.9 (morbid obesity) (HCC) - ICD9: 278.01, ICD10: E66.01 Multiple current complaints. Consider treatment for obesity at his next visit 6. Transportation insecurity - ICD9: V60.2, ICD10: Z59.82 - PRIMARY CARE SOCIAL WORK CONSULT 7. Encounter for immunization - ICD9: V03.89, ICD10: Z23 - declines all - PNEUMOCOCCAL VACCINE, 20 VALENT (PREVNAR 20) - TDAP VACCINE, AGE 7+ YR (ADACEL, BOOSTRIX) - ZOSTER VACCINE, RECOMBINANT (SHINGRIX) - ZOSTER VACCINE, RECOMBINANT (SHINGRIX) - PFIZER-BIONTECH COVID-19 VACCINE AGE 12+ YR (COMIRNATY) Pura Leon APRN.CNS Medical Decision Making: Problems: Moderate: 1+ chronic illnesses with change Data: Unique test result(s) reviewed: 3+ Risk: Moderate: Drug management Medical Decision Making Level: 4 - Moderate documented in this encounter [facility] 09-09-2024 Telephone encounter Note Xray of the right knee for patient shows severe arthritis, he needs to follow up with ortho to discuss next steps. Consult placed, please help with scheduling. (Shoulder and neck xrays still pending). [facility] 09-09-2024 Miscellaneous Notes Xray of the right knee for patient shows severe arthritis, he needs to follow up with ortho to discuss next steps. Consult placed, please help with scheduling. (Shoulder and neck xrays still pending). documented in this encounter [facility] 09-04-2024 Telephone encounter Note LEFT MESSAGE FOR PATIENT TO CALL OFFICE. [facility] 09-04-2024 Miscellaneous Notes LEFT MESSAGE FOR PATIENT TO CALL OFFICE. Please let Nancie know xrays are still in process but labs are back. The one inflammation number shows inflammation is present. Vitamin d is low. I sent in vitamin d for him to start taking. Otherwise labs are stable and without issues. The prostate screening number was normal. documented in this encounter [facility] 09-04-2024 Telephone encounter Note Please let Nancie know xrays are still in process but labs are back. The one inflammation number shows inflammation is present. Vitamin d is low. I sent in vitamin d for him to start taking. Otherwise labs are stable and without issues. The prostate screening number was normal. [facility] 09-03-2024 History of Presen t illness Narrative Radiology Service Progress Note PATIENT NAME: Nancie Ruano DATE OF SERVICE: September 03, 2024 TIME: 4:22 PM PATIENT IDENTITY VERIFICATION COMPLETED USING TWO (2) IDENTIFIERS: Name and Date of confirmed by patient verbally. FALL SCREENING: Has the patient had 2 falls in the last year or 1 fall with injury or currently using an Ambulatory Assistive Device (Walker, Cane, Wheelchair, Crutches, etc.)? No PATIENT GENDER DATA: Male PATIENT RELEVANT IMPLANT DATA REVIEWED: Yes PATIENT PRESENTS WITH AN IMPLANTABLE OR ATTACHED DRILL GRINDER: No RADIOLOGY DEPARTMENT: General X-ray: Exam(s) Completed: Spine X-Ray(s): Cervical AP / LAT / OBL Lower Extremity X-Ray(s): Knee, AP / LAT Right Upper Extremity X-Ray(s): Shoulder, AP / TRUE AP left PERIPHERAL IV DATA: Not applicable SIGNED BY: RT Jessica(R) September 03, 2024 4:22 PM documented in this encounter [facility] 09-03-2024 Note HNO ID: [id number] Author: INGRIS BOWENS RT(Nataliia) Service: ? Author Type: Web Site Developer Type: Progress Notes Filed: 09/03/2024 16:23 Note Text: Radiology Service Progress Note PATIENT NAME: Nancie Ruano DATE OF SERVICE: September 03, 2024 TIME: 4:22 PM PATIENT IDENTITY VERIFICATION COMPLETED USING TWO (2) IDENTIFIERS: Name and Date of confirmed by patient verbally. FALL SCREENING: Has the patient had 2 falls in the last year or 1 fall with injury or currently using an Ambulatory Assistive Device (Walker, Cane, Wheelchair, Crutches, etc.)? No PATIENT GENDER DATA: Male PATIENT RELEVANT IMPLANT DATA REVIEWED: Yes PATIENT PRESENTS WITH AN IMPLANTABLE OR ATTACHED DRILL GRINDER: No RADIOLOGY DEPARTMENT: General X-ray: Exam(s) Completed: Spine X-Ray(s): Cervical AP / LAT / OBL Lower Extremity X-Ray(s): Knee, AP / LAT Right Upper Extremity X-Ray(s): Shoulder, AP / TRUE AP left PERIPHERAL IV DATA: Not applicable SIGNED BY: RT Jessica(R) September 03, 2024 4:22 PM [facility] 09-03-2024 Note HNO ID: [id number] Author: MYA ANDREA APRN.MARIA A Service: ? Author Type: Nurse Practitioner Type: Progress Notes Filed: 09/03/2024 15:40 Note Text: CHIEF COMPLAINT: Patient presents with: Physical HISTORY: Nancie Ruano is a 58 year old male who presents 09/03/2024 for his Yearly Physical Exam. They are here today for a wellness exam. Is able to complete ADL's with independence. Issues today with left shoulder pain, pain all day, neck stiffness, right knee bothers him too. Knee is worse with walking. Low back is in pain too. Trying a lidocaine cream but wears off after a short time. Prior xray of the lumbar spine showed degenerative changes. Right knee with mild arthritis. Prior knee injection but helped only for a short time. More short of breath with activity. Resolves with rest. Not seeing pulmonary. He is coughing some with this. History of smoking. Laying flat is the worse. Has COPD. Sometimes some wheezing. On Spiriva, not taking Dulera. Other Providers: none Depression Screen Q1: Over the past two weeks, have you felt down, depressed or hopeless? No Q2: Over the past two weeks, have you felt little interest or pleasure in doing things? No Current exercise habits: No regular routine Dietary habits: No specific diet Hearing difficulties: no Safe in current home environment: Yes Tobacco: quit ETOH: no Family History Cancer Colon: no Prostate: yes, father Past Medical History: PAST MEDICAL HISTORY Diagnosis Date asthma Esophageal reflux hearing loss left ear deafness Hypertension Family Medical History: FAMILY HISTORY Problem Relation Age of Onset Asthma Mother Diabetes Father Coronary Artery Disease Maternal Grandmother other (alzhiemers) Paternal Grandmother Social History: Social History Tobacco Use Smoking status: Former Current packs/day: 0.00 Average packs/day: 2.0 packs/day for 25.0 years (50.0 ttl pk-yrs) Types: Cigarettes Start date: 11/13/1969 Quit date: 11/13/1994 Years since quittin.8 Smokeless tobacco: Never Tobacco comments: quit 25 years ago Substance Use Topics Alcohol use: Yes Comment: occasional beer Drug use: No Allergies: ALLERGIES Allergen Reactions Hctz [Lisinopril-Hy* Other: See Comments dizziness Penicillins Other: See Comments passed Out Loss of consciousness Medications: Current Outpatient Medications Medication Sig lisinopril (ZESTRIL) 5 mg tablet Take 1 tablet by mouth once daily. hydroCHLOROthiazide 25 mg tablet Take 1 tablet by mouth once daily. albuterol HFA (VENTOLIN HFA) 90 mcg/actuation inhaler Inhale 2 Puffs as instructed every 4 hours as needed for wheezing/shortness of breath. Prescribed by pulmonlogist tiotropium bromide (SPIRIVA RESPIMAT) 2.5 mcg/actuation inhaler Inhale 2 Puffs as instructed once daily. Inhale two puffs once daily. albuterol (PROVENTIL) 2.5 mg /3 mL (0.083 %) nebulizer solution Use 3 mL via nebulizer every 4 hours as needed for wheezing/shortness of breath. Use over 5-15minutes. mometasone-formoterol (DULERA) 50-5 mcg/actuation HFA aerosol inhaler Inhale 2 Puffs as instructed two times a day. predniSONE (DELTASONE) 20 mg tablet 1 tablet three times a day for 3 days, then 2 times a day for 3 days, the one daily for 3 days. No current facility-administered medications for this visit. 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-complete loss by age 14 Obesity, Class Iii, Bmi 40-49.9 (Morbid Obesity) ([facility]) - 06/15/2007 Comment: Good visit with Nutrition in 06-19: reportedly stopped Mountain Dew (was using 2 L per day) Normal ALT in 07-20 TSH 2.29 in 07-20 Review PFTs for BASURTO as of 02-18 and consider heart and conditioning Tobacco Use Disorder - 06/15/2007 Comment: Quit tobacco about age 31-gained 100 pounds since that time [facility] Cpap - 06/15/2007 Comment: 03-22-06: AHI 26, supine 53, min sat 85%, mean 93% 04-17-06: 8 cm elim snoring/obs, more info at 9 in supine-rec 9 cm Non-compliant as of 06-19: instructed to contact RT for restarting Restarted CPAP as of 06-19: symptoms much better in 07-20 Esophageal Reflux - 06/15/2007 Comment: No dysphagia or odynophagia as of 06-19 Resolved with weight loss as of 07-20 Umbilical Hernia Without Mention of Obstruction Or Gangrene - 06/15/2007 Comment: No surgical indications as of 06-19 Other Ventral Hernia Without Mention of Obstruction Or Gangrene - 06/15/2007 Essential Hypertension, Benign - 06/15/2007 Comment: EST 06-12-07: 6.7 METS, 87% APMHR, resting BP 140/96-negative imaging (EF 54%) Pulse ox fell to 86% at max stress-resolved with rest ECG 06-12-07: ST with no ischemia/injury Creat 1 in 07-20 LDL 84, (more content not included)... [facility] 09-03-2024 History of Presen t illness Narrative CHIEF COMPLAINT: Patient presents with: Physical HISTORY: Nancie Ruano is a 58 year old male who presents 09/03/2024 for his Yearly Physical Exam. They are here today for a wellness exam. Is able to complete ADL's with independence. Issues today with left shoulder pain, pain all day, neck stiffness, right knee bothers him too. Knee is worse with walking. Low back is in pain too. Trying a lidocaine cream but wears off after a short time. Prior xray of the lumbar spine showed degenerative changes. Right knee with mild arthritis. Prior knee injection but helped only for a short time. More short of breath with activity. Resolves with rest. Not seeing pulmonary. He is coughing some with this. History of smoking. Laying flat is the worse. Has COPD. Sometimes some wheezing. On Spiriva, not taking Dulera. Other Providers: none Depression Screen Q1: Over the past two weeks, have you felt down, depressed or hopeless? No Q2: Over the past two weeks, have you felt little interest or pleasure in doing things? No Current exercise habits: No regular routine Dietary habits: No specific diet Hearing difficulties: no Safe in current home environment: Yes Tobacco: quit ETOH: no Family History Cancer Colon: no Prostate: yes, father Past Medical History: PAST MEDICAL HISTORY Diagnosis Date asthma Esophageal reflux hearing loss left ear deafness Hypertension Family Medical History: FAMILY HISTORY Problem Relation Age of Onset Asthma Mother Diabetes Father Coronary Artery Disease Maternal Grandmother other (alzhiemers) Paternal Grandmother Social History: Social History Tobacco Use Smoking status: Former Current packs/day: 0.00 Average packs/day: 2.0 packs/day for 25.0 years (50.0 ttl pk-yrs) Types: Cigarettes Start date: 11/13/1969 Quit date: 11/13/1994 Years since quittin.8 Smokeless tobacco: Never Tobacco comments: quit 25 years ago Substance Use Topics Alcohol use: Yes Comment: occasional beer Drug use: No Allergies: ALLERGIES Allergen Reactions Hctz [Lisinopril-Hy* Other: See Comments dizziness Penicillins Other: See Comments passed Out Loss of consciousness Medications: Current Outpatient Medications Medication Sig lisinopril (ZESTRIL) 5 mg tablet Take 1 tablet by mouth once daily. hydroCHLOROthiazide 25 mg tablet Take 1 tablet by mouth once daily. albuterol HFA (VENTOLIN HFA) 90 mcg/actuation inhaler Inhale 2 Puffs as instructed every 4 hours as needed for wheezing/shortness of breath. Prescribed by pulmonlogist tiotropium bromide (SPIRIVA RESPIMAT) 2.5 mcg/actuation inhaler Inhale 2 Puffs as instructed once daily. Inhale two puffs once daily. albuterol (PROVENTIL) 2.5 mg /3 mL (0.083 %) nebulizer solution Use 3 mL via nebulizer every 4 hours as needed for wheezing/shortness of breath. Use over 5-15minutes. mometasone-formoterol (DULERA) 50-5 mcg/actuation HFA aerosol inhaler Inhale 2 Puffs as instructed two times a day. predniSONE (DELTASONE) 20 mg tablet 1 tablet three times a day for 3 days, then 2 times a day for 3 days, the one daily for 3 days. No current facility-administered medications for this visit. 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-complete loss by age 14 Obesity, Class Iii, Bmi 40-49.9 (Morbid Obesity) ([facility]) - 06/15/2007 Comment: Good visit with Nutrition in 06-19: reportedly stopped Mountain Dew (was using 2 L per day) Normal ALT in 07-20 TSH 2.29 in 07-20 Review PFTs for BASURTO as of 02-18 and consider heart and conditioning Tobacco Use Disorder - 06/15/2007 Comment: Quit tobacco about age 31-gained 100 pounds since that time [facility] Cpap - 06/15/2007 Comment: 03-22-06: AHI 26, supine 53, min sat 85%, mean 93% 04-17-06: 8 cm elim snoring/obs, more info at 9 in supine-rec 9 cm Non-compliant as of 06-19: instructed to contact RT for restarting Restarted CPAP as of 06-19: symptoms much better in 07-20 Esophageal Reflux - 06/15/2007 Comment: No dysphagia or odynophagia as of 06-19 Resolved with weight loss as of 07-20 Umbilical Hernia Without Mention of Obstruction Or Gangrene - 06/15/2007 Comment: No surgical indications as of 06-19 Other Ventral Hernia Without Mention of Obstruction Or Gangrene - 06/15/2007 Essential Hypertension, Benign - 06/15/2007 Comment: EST 06-12-07: 6.7 METS, 87% APMHR, resting BP 140/96-negative imaging (EF 54%) Pulse ox fell to 86% at max stress-resolved with rest ECG 06-12-07: ST with no ischemia/injury Creat 1 in 07-20 LDL 84, HDL 39, TG 76 in 07-20 Review of Systems Review of Systems Constitutional: Negative. Respiratory: Positive for shortness of breath. Cardiovascular: Negative. Musculoskeletal: Positive for arthralgias. OBJECTIVE BP 138/84 Pulse 86 Resp 20 Ht 5' 9 (1.75m) Wt 344 lb 12.8 oz (156.4kg) BMI 50.89 kg/(m^2). Physical Exam Vitals and nursing note reviewed. Constitutional: General: He is awake. He is not in acute distress. Appearance: Normal appearance. He is well-developed and well-groomed. He is not ill-appearing, toxic-appearing or diaphoretic. HENT: Head: Normocephalic. Right Ear: External ear normal. Left Ear: External ear normal. Nose: Nose normal. Eyes: General: Vision grossly intact. Conjunctiva/sclera: Conjunctivae normal. Pupils: Pupils are equal, round, and reactive to light. Neck: Vascular: No JVD. Trachea: Trachea normal. Cardiovascular: Rate and Rhythm: Normal rate and regular rhythm. Pulses: Normal pulses. Heart sounds: Normal heart sounds. No murmur heard. Pulmonary: Effort: Pulmonary effort is normal. No accessory muscle usage, prolonged expiration or respiratory distress. Breath sounds: Examination of the right-middle field reveals decreased breath sounds. Examination of the left-middle field reveals decreased breath sounds. Examination of the right-lower field reveals decreased breath sounds. Examination of the left-lower field reveals decreased breath sounds. Decreased breath sounds present. Musculoskeletal: Cervical back: Neck supple. Skin: General: Skin is warm and dry. Capillary Refill: Capillary refill takes less than 2 seconds. Neurological: General: No focal deficit present. Mental Status: He is alert and oriented to person, place, and time. Mental status is at baseline. Psychiatric: Attention and Perception: Attention and perception normal. Mood and Affect: Mood and affect normal. Speech: Speech normal. Behavior: Behavior normal. Behavior is cooperative. Thought Content: Thought content normal. Cognition and Memory: Cognition and memory normal. Judgment: Judgment normal. ASSESSMENT/PLAN: 1. Wellness examination - ICD9: V70.0, ICD10: Z00.00 (primary diagnosis) - Counseled on healthy diet and regular exercise - Discussed need for and benefit of weight loss. BMI 50.92 kg/(m^2) - Risks/benefits of prostate cancer screening discussed. screening PSA ordered 2. Chronic obstructive pulmonary disease, unspecified COPD type (HCC) - ICD9: 496, ICD10: J44.9 Restart dulera, short term steroid taper. - ALBUTEROL SULFATE HFA 90 MCG/ACTUATION AEROSOL INHALER - SPIRIVA RESPIMAT 2.5 MCG/ACTUATION SOLUTION FOR INHALATION - ALBUTEROL SULFATE 2.5 MG/3 ML (0.083 %) SOLUTION FOR NEBULIZATION - [id number] - PREDNISONE 20 MG TABLET 3. Arthralgia of multiple joints - ICD9: 719.49, ICD10: M25.50 Update xrays, short term steroid taper. - THYROID STIMULATING HORMONE - SEDIMENTATION RATE, WESTERGREN - C-REACTIVE PROTEIN - RAGHAVENDRA BY IFA WITH REFLEX - RHEUMATOID FACTOR - XR KNEE LIMITED 2V AP/LAT RIGHT - XR CERV OTHER 4V AP/LAT/OBL - XR SHOULDER LIMITED 2V AP/TRUE AP LEFT - PREDNISONE 20 MG TABLET 4. Reactive hypoglycemia - ICD9: 251.2, ICD10: E16.1 - HEMOGLOBIN A1C 5. Vitamin D deficiency - ICD9: 268.9, ICD10: E55.9 - VITAMIN D 25 HYDROXY 6. Screening for prostate cancer - ICD9: V76.44, ICD10: Z12.5 - PSA/PROSTATE SPECIFIC ANTIGEN SCREENING 7. Screening for depression - ICD9: V79.0, ICD10: Z13.31 - DEPRESSION SCREENING 8. Encounter for screening examination for other mental health and behavioral disorders - ICD9: V79.8, ICD10: Z13.39 - ANXIETY SCREENING 9. Encounter for therapeutic drug monitoring - ICD9: V58.83, ICD10: Z51.81 - COMPLETE BLOOD COUNT AND DIFFERENTIAL - COMPREHENSIVE METABOLIC PANEL - MAGNESIUM Wellness exam completed. Health maintenance reviewed and updated. Chronic conditions and medications reviewed and updated as needed. Encouraged regular physical activity as tolerated, Healthy diet, and health promoting lifestyle. Encouraged regular eye doctor and dental visits. Portions of this note have been entered by ancillary staff. I have reviewed and when necessary edited, so that they are an adequate record of my encounter with this patient Please note that parts of this document were created using KeepIde[employer] and therefore may contain grammatical errors. Patient verbalizes understanding of instructions from today's visit and in agreement with treatment plan. Questions answered. Agrees to call the office if questions, concerns or issues with acute symptoms not improving or if they worsen. See diagnoses and orders for additional plan(s). Allergies and medications were reviewed, list was updated, and refills given if needed. Past medical, surgical, social, and family history reviewed and updated as appropriate. Encouraged proper diet & exercise as well as compliance with taking medications. Age-appropriate health preventative measures were discussed. Return in about 6 weeks (around 10/15/2024) for Follow up on chronic conditions and medications.. AMANDA Schultz documented in this encounter [facility] 08-05-2024 Telephone encounter Note Patient's calls and states that patient is needing refill on medication. Patient is now on new insurance and has not received insurance care through mail. will have patient call and set up appointment when he get insurance information. The patient has been identified by name and date of : Yes Caregiver verified no other encounters exist for this prescription request: Yes Caregiver confirmed with patient/requestor that no other refills are due, in the near future, with this provider at this time: Yes The last office visit in the department: 01/16/2024 Does the patient have a future office visit with this provider/department: No Visit date not found Requested Prescriptions Pending Prescriptions Disp Refills lisinopril (ZESTRIL) 5 mg tablet 30 tablet 5 Sig: Take 1 tablet by mouth once daily. Lillian Baxter RN August 05, 2024 4:05 PM [facility] 08-05-2024 Miscellaneous Notes Patient's calls and states that patient is needing refill on medication. Patient is now on new insurance and has not received insurance care through mail. will have patient call and set up appointment when he get insurance information. The patient has been identified by name and date of : Yes Caregiver verified no other encounters exist for this prescription request: Yes Caregiver confirmed with patient/requestor that no other refills are due, in the near future, with this provider at this time: Yes The last office visit in the department: 01/16/2024 Does the patient have a future office visit with this provider/department: No Visit date not found Requested Prescriptions Pending Prescriptions Disp Refills lisinopril (ZESTRIL) 5 mg tablet 30 tablet 5 Sig: Take 1 tablet by mouth once daily. Lillian Baxter RN August 05, 2024 4:05 PM documented in this encounter [facility] 06-17-2024 History of Presen t illness Narrative Radiology Service Progress Note PATIENT NAME: Nancie Ruano DATE OF SERVICE: June 17, 2024 TIME: 2:18 PM PATIENT IDENTITY VERIFICATION COMPLETED USING TWO (2) IDENTIFIERS: Name and Date of confirmed by patient verbally. FALL SCREENING: Has the patient had 2 falls in the last year or 1 fall with injury or currently using an Ambulatory Assistive Device (Walker, Cane, Wheelchair, Crutches, etc.)? No PATIENT GENDER DATA: Male PATIENT RELEVANT IMPLANT DATA REVIEWED: Not Applicable PATIENT PRESENTS WITH AN IMPLANTABLE OR ATTACHED DRILL GRINDER: No RADIOLOGY DEPARTMENT: General X-ray: Exam(s) Completed: Spine X-Ray(s): Lumbar AP / LAT / L5-S1 PERIPHERAL IV DATA: Not applicable SIGNED BY: RT Duke(R) June 17, 2024 2:18 PM documented in this encounter [facility] 06-17-2024 Note HNO ID: [id number] Author: ILIR PARADA RT(Nataliia) Service: Radiology Author Type: Technologist Type: Progress Notes Filed: 06/17/2024 14:27 Note Text: Radiology Service Progress Note PATIENT NAME: Nancie Ruano DATE OF SERVICE: June 17, 2024 TIME: 2:18 PM PATIENT IDENTITY VERIFICATION COMPLETED USING TWO (2) IDENTIFIERS: Name and Date of confirmed by patient verbally. FALL SCREENING: Has the patient had 2 falls in the last year or 1 fall with injury or currently using an Ambulatory Assistive Device (Walker, Cane, Wheelchair, Crutches, etc.)? No PATIENT GENDER DATA: Male PATIENT RELEVANT IMPLANT DATA REVIEWED: Not Applicable PATIENT PRESENTS WITH AN IMPLANTABLE OR ATTACHED DRILL GRINDER: No RADIOLOGY DEPARTMENT: General X-ray: Exam(s) Completed: Spine X-Ray(s): Lumbar AP / LAT / L5-S1 PERIPHERAL IV DATA: Not applicable SIGNED BY: RT Duke(Nataliia) June 17, 2024 2:18 PM [facility] 06-17-2024 Note HNO ID: [id number] Author: PERRI GREEN APRN.VOLLEYBALL REFEREE Service: ? Author Type: Nurse Practitioner Type: Progress Notes Filed: 06/17/2024 17:29 Note Text: This note was created using Coach[employer]Plus[employer]. Subjective Nancie Ruano is a 58 year old male. 58 year old male with PMH HTN, COPD, GERD, umbilical hernia, and obesity presents for back pain. Acute onset a couple months ago Lower mid back Sharp Constant Worse with movement. Denies known trauma or injury Denies CP. 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 The history is provided by the patient. No speech language specialist was used. Back Pain This is a new problem. The current episode started more than 1 week ago. The problem occurs constantly. The problem has not changed since onset.The pain is associated with no known injury. The pain is present in the lumbar spine. Quality: sharp. The pain does not radiate. The pain is at a severity of 7/10. The pain is moderate. The symptoms are aggravated by twisting, bending and certain positions. The pain is The same all the time. Stiffness is present All day. Pertinent negatives include no chest pain, no fever, no numbness, no weight loss, no headaches, no abdominal pain, no abdominal swelling, no bowel incontinence, no perianal numbness, no bladder incontinence, no dysuria, no pelvic pain, no leg pain, no paresthesias, no paresis, no tingling and no weakness. He has tried NSAIDs for the symptoms. The treatment provided no relief. Risk factors include obesity, lack of exercise, poor posture and a sedentary lifestyle. PAST MEDICAL HISTORY No date: asthma No date: Esophageal reflux No date: hearing loss Comment: left ear deafness No date: Hypertension PAST SURGICAL HISTORY No date: PAST SURGICAL HISTORY OF Comment: left ear surgery No date: PAST SURGICAL HISTORY OF Comment: left leg crushed injury ALLERGIES Hctz [Lisinopril-Hydrochlorothiazide] and Penicillins MEDICATIONS albuterol (PROVENTIL) 2.5 mg /3 mL (0.083 %) nebulizer solution Use 3 mL via nebulizer every 4 hours as needed for wheezing/shortness of breath. Use over 5-15minutes. hydroCHLOROthiazide 25 mg tablet Take 1 tablet by mouth once daily. mometasone-formoterol (DULERA) 50-5 mcg/actuation HFA aerosol inhaler Inhale 2 Puffs as instructed two times a day. tiotropium bromide (SPIRIVA RESPIMAT) 2.5 mcg/actuation inhaler Inhale 2 Puffs as instructed once daily. Inhale two puffs once daily. lisinopril (ZESTRIL) 5 mg tablet Take 1 tablet by mouth once daily. albuterol HFA (VENTOLIN HFA) 90 mcg/actuation inhaler Inhale 2 Puffs as instructed every 4 hours as needed for wheezing/shortness of breath. Prescribed by pulmonlogist lisinopril-hydroCHLOROthiazide (ZESTORETIC) 10-12.5 mg per tablet Take 1 tablet by mouth once daily. famotidine (PEPCID) 20 mg tablet Take 1 tablet by mouth at bedtime as needed. Take this once daily on the days you take meloxicam predniSONE (DELTASONE) 10 mg tablet Take 4 tabs daily for 3 days, then 2 tabs daily for 3 days, then 1 tab daily for 3 days with food. cyclobenzaprine (FLEXERIL) 10 mg tablet Take 1 tablet by mouth three times a day as needed for muscle spasm. FAMILY HISTORY Problem Relation Age of Onset Asthma Mother Diabetes Father Coronary Artery Disease Maternal Grandmother other (alzhiemers) Paternal Grandmother Social History Tobacco Use Smoking status: Former Packs/day: 2.00 Years: 25.00 Additional pack years: 0.00 Total pack years: 50.00 Types: Cigarettes Quit date: 11/13/1994 Years since quittin.6 Smokeless tobacco: Never Tobacco comments: quit 25 years ago Substance Use Topics Alcohol use: Yes Comment: occasional beer Drug use: No Review of Systems Constitutional: Negative for activity change, appetite change, chills, fever and weight loss. Eyes: Negative for pain, discharge, redness and itching. Respiratory: Negative for apnea, cough, choking and chest tightness. Cardiovascular: Negative for chest pain. Gastrointestinal: Negative for abdominal pain, bowel incontinence, diarrhea, nausea and vomiting. Genitourinary: Negative for bladder incontinence, dysuria and pelvic pain. Musculoskeletal: Positive for back pain. Negative for gait problem. Skin: Negative for color change, pallor, rash and wound. Allergic/Immunologic: Negative for environmental allergies, food allergies and immunocompromised state. Neurological: Negative for dizziness, tingling, facial asymmetry, weakness, numbness, headaches and paresthesias. Hematological: Negative for adenopathy. Does not bruise/bleed easily. Psychiatric/Behavioral: Negative for agitation and behavioral problems. Objective BP 134/80 Pulse 106 Temp 36.5 ?C (97.7 ?F) Resp 16 Wt (!) 154.8 kg (341 lb 4.4 oz) SpO2 96% BMI 50.40 (more content not included)... [facility] 06-17-2024 History of Presen t illness Narrative This note was created using Coach[employer]Plusriter. Subjective Nancie Ruano is a 58 year old male. 58 year old male with PMH HTN, COPD, GERD, umbilical hernia, and obesity presents for back pain. Acute onset a couple months ago Lower mid back Sharp Constant Worse with movement. Denies known trauma or injury Denies CP. 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 The history is provided by the patient. No speech language specialist was used. Back Pain This is a new problem. The current episode started more than 1 week ago. The problem occurs constantly. The problem has not changed since onset.The pain is associated with no known injury. The pain is present in the lumbar spine. Quality: sharp. The pain does not radiate. The pain is at a severity of 7/10. The pain is moderate. The symptoms are aggravated by twisting, bending and certain positions. The pain is The same all the time. Stiffness is present All day. Pertinent negatives include no chest pain, no fever, no numbness, no weight loss, no headaches, no abdominal pain, no abdominal swelling, no bowel incontinence, no perianal numbness, no bladder incontinence, no dysuria, no pelvic pain, no leg pain, no paresthesias, no paresis, no tingling and no weakness. He has tried NSAIDs for the symptoms. The treatment provided no relief. Risk factors include obesity, lack of exercise, poor posture and a sedentary lifestyle. PAST MEDICAL HISTORY No date: asthma No date: Esophageal reflux No date: hearing loss Comment: left ear deafness No date: Hypertension PAST SURGICAL HISTORY No date: PAST SURGICAL HISTORY OF Comment: left ear surgery No date: PAST SURGICAL HISTORY OF Comment: left leg crushed injury ALLERGIES Hctz [Lisinopril-Hydrochlorothiazide] and Penicillins MEDICATIONS albuterol (PROVENTIL) 2.5 mg /3 mL (0.083 %) nebulizer solution Use 3 mL via nebulizer every 4 hours as needed for wheezing/shortness of breath. Use over 5-15minutes. hydroCHLOROthiazide 25 mg tablet Take 1 tablet by mouth once daily. mometasone-formoterol (DULERA) 50-5 mcg/actuation HFA aerosol inhaler Inhale 2 Puffs as instructed two times a day. tiotropium bromide (SPIRIVA RESPIMAT) 2.5 mcg/actuation inhaler Inhale 2 Puffs as instructed once daily. Inhale two puffs once daily. lisinopril (ZESTRIL) 5 mg tablet Take 1 tablet by mouth once daily. albuterol HFA (VENTOLIN HFA) 90 mcg/actuation inhaler Inhale 2 Puffs as instructed every 4 hours as needed for wheezing/shortness of breath. Prescribed by pulmonlogist lisinopril-hydroCHLOROthiazide (ZESTORETIC) 10-12.5 mg per tablet Take 1 tablet by mouth once daily. famotidine (PEPCID) 20 mg tablet Take 1 tablet by mouth at bedtime as needed. Take this once daily on the days you take meloxicam predniSONE (DELTASONE) 10 mg tablet Take 4 tabs daily for 3 days, then 2 tabs daily for 3 days, then 1 tab daily for 3 days with food. cyclobenzaprine (FLEXERIL) 10 mg tablet Take 1 tablet by mouth three times a day as needed for muscle spasm. FAMILY HISTORY Problem Relation Age of Onset Asthma Mother Diabetes Father Coronary Artery Disease Maternal Grandmother other (alzhiemers) Paternal Grandmother Social History Tobacco Use Smoking status: Former Packs/day: 2.00 Years: 25.00 Additional pack years: 0.00 Total pack years: 50.00 Types: Cigarettes Quit date: 11/13/1994 Years since quittin.6 Smokeless tobacco: Never Tobacco comments: quit 25 years ago Substance Use Topics Alcohol use: Yes Comment: occasional beer Drug use: No Review of Systems Constitutional: Negative for activity change, appetite change, chills, fever and weight loss. Eyes: Negative for pain, discharge, redness and itching. Respiratory: Negative for apnea, cough, choking and chest tightness. Cardiovascular: Negative for chest pain. Gastrointestinal: Negative for abdominal pain, bowel incontinence, diarrhea, nausea and vomiting. Genitourinary: Negative for bladder incontinence, dysuria and pelvic pain. Musculoskeletal: Positive for back pain. Negative for gait problem. Skin: Negative for color change, pallor, rash and wound. Allergic/Immunologic: Negative for environmental allergies, food allergies and immunocompromised state. Neurological: Negative for dizziness, tingling, facial asymmetry, weakness, numbness, headaches and paresthesias. Hematological: Negative for adenopathy. Does not bruise/bleed easily. Psychiatric/Behavioral: Negative for agitation and behavioral problems. Objective BP 134/80 Pulse 106 Temp 36.5 C (97.7 F) Resp 16 Wt (!) 154.8 kg (341 lb 4.4 oz) SpO2 96% BMI 50.40 kg/m Physical Exam Vitals and nursing note reviewed. Constitutional: General: He is not in acute distress. Appearance: Normal appearance. He is not ill-appearing, toxic-appearing or diaphoretic. HENT: Head: Normocephalic and atraumatic. Right Ear: External ear normal. Left Ear: External ear normal. Nose: Nose normal. No congestion or rhinorrhea. Mouth/Throat: Mouth: Mucous membranes are moist. Pharynx: Oropharynx is clear. No oropharyngeal exudate or posterior oropharyngeal erythema. Eyes: General: Right eye: No discharge. Left eye: No discharge. Extraocular Movements: Extraocular movements intact. Conjunctiva/sclera: Conjunctivae normal. Pupils: Pupils are equal, round, and reactive to light. Cardiovascular: Rate and Rhythm: Normal rate and regular rhythm. Pulses: Normal pulses. Heart sounds: Normal heart sounds. No murmur heard. No friction rub. No gallop. Pulmonary: Effort: Pulmonary effort is normal. No respiratory distress. Breath sounds: Normal breath sounds. No stridor. No wheezing, rhonchi or rales. Chest: Chest wall: No tenderness. Abdominal: General: Abdomen is flat. There is no distension. Palpations: Abdomen is soft. There is no mass. Tenderness: There is no abdominal tenderness. There is no guarding or rebound. Hernia: No hernia is present. Musculoskeletal: General: Tenderness (Mid lumbar TTP. No step off. NO crepitus. No erythema. Ambulatory in exam room) present. No swelling, deformity or signs of injury. Normal range of motion. Cervical back: Normal range of motion and neck supple. No rigidity or tenderness. Right lower leg: No edema. Left lower leg: No edema. Comments: No midline cervical, thoracic TTP No ecchymosis. No step off. No crepitus Lymphadenopathy: Cervical: No cervical adenopathy. Skin: General: Skin is warm and dry. Capillary Refill: Capillary refill takes less than 2 seconds. Coloration: Skin is not jaundiced or pale. Findings: No bruising, lesion or rash. Neurological: General: No focal deficit present. Mental Status: He is alert and oriented to person, place, and time. Cranial Nerves: No cranial nerve deficit. Sensory: No sensory deficit. Motor: No weakness. Coordination: Coordination normal. Gait: Gait normal. Deep Tendon Reflexes: Reflexes normal. Psychiatric: Mood and Affect: Mood normal. Behavior: Behavior normal. Thought Content: Thought content normal. Assessment and Plan ASSESSMENT/PLAN: 1. Lumbar pain - ICD9: 724.2, ICD10: M54.50 X a couple months Diffuse lumbar midline and left lower lumbar paraspinal TTP - XR LUMBAR GENERAL 3V AP/LAT/[id number] for fracture or dislocation RICE therapy OTC analgesics RX Prednisone RX Flexeril F/u with PCP Perri Green APRN.VOLLEYBALL REFEREE documented in this encounter [facility] 05-09-2024 Telephone encounter Note The patient has been identified by name and date of : Yes Caregiver verified no other encounters exist for this prescription request: Yes Caregiver confirmed with patient/requestor that no other refills are due, in the near future, with this provider at this time: Yes The last office visit in the department: 01/16/2024 Does the patient have a future office visit with this provider/department: No Visit date not found Requested Prescriptions Pending Prescriptions Disp Refills albuterol (PROVENTIL) 2.5 mg /3 mL (0.083 %) nebulizer solution 150 mL 11 Sig: Use 3 mL via nebulizer every 4 hours as needed for wheezing/shortness of breath. Use over 5-15minutes. Luis Angel Garcia RN May 09, 2024 10:29 AM [facility] 05-09-2024 Miscellaneous Notes The patient has been identified by name and date of : Yes Caregiver verified no other encounters exist for this prescription request: Yes Caregiver confirmed with patient/requestor that no other refills are due, in the near future, with this provider at this time: Yes The last office visit in the department: 01/16/2024 Does the patient have a future office visit with this provider/department: No Visit date not found Requested Prescriptions Pending Prescriptions Disp Refills albuterol (PROVENTIL) 2.5 mg /3 mL (0.083 %) nebulizer solution 150 mL 11 Sig: Use 3 mL via nebulizer every 4 hours as needed for wheezing/shortness of breath. Use over 5-15minutes. Luis Angel Garcia RN May 09, 2024 10:29 AM documented in this encounter [facility] 04-05-2024 Telephone encounter Note Patient has been identified by name and date of : Yes, Provider Dr Garcia Date 04-05-24 Time 3:20p Patient phones for refill(s): Requested Prescriptions Pending Prescriptions Disp Refills hydroCHLOROthiazide 25 mg tablet 30 tablet 5 Sig: Take 1 tablet by mouth once daily. Date of last office visit in primary care: 01/16/2024 Date of next office visit in primary care: Visit date not found Please advise. Thank you. Lani Lorenz.=r [facility] Work Phone: 04-05-2024 Miscellaneous Notes Patient has been identified by name and date of : Yes, Provider Dr Garcia Date 04-05-24 Time 3:20p Patient phones for refill(s): Requested Prescriptions Pending Prescriptions Disp Refills hydroCHLOROthiazide 25 mg tablet 30 tablet 5 Sig: Take 1 tablet by mouth once daily. Date of last office visit in primary care: 01/16/2024 Date of next office visit in primary care: Visit date not found Please advise. Thank you. Lani Staton Pss.=r documented in this encounter [facility] 01-16-2024 Instructions Carlos Garcia MD - 01/16/2024 11:13 AM EST Resume Spiriva now to help control wheezing and bronchospasm. After taper off prednisone, may start Dulera to control wheezing and bronchospasm. Let me know if we need to slow down the prednisone taper. documented in this encounter [facility] 01-16-2024 History of Presen t illness Narrative This note was created using [employer]Me[employer]. Subjective Nancie Ruano is a 58 year old male. Patient presents with: Acute Visit: Productive cough, chest congestion, wheezing, chills, headache, sore throat x1 week SUBJECTIVE: Nancie Ruano is a 58 year old year old gentleman here today for follow up appointment for review of medical conditions. Chest wall pain and headache with the coughing. Gets coughing spells. Worse when lays down. Has not been using his inhalers. Uses albuterol just when out. Not at bedtime or at home. Noted in the past had passed out. Has noted sometimes shakes starting at bottom of feet and goes up. PAST MEDICAL HISTORY Diagnosis Date asthma Esophageal reflux hearing loss left ear deafness Hypertension Current Outpatient Medications Medication Sig lisinopril (ZESTRIL) 5 mg tablet Take 1 tablet by mouth once daily. hydroCHLOROthiazide 25 mg tablet Take 1 tablet by mouth once daily. albuterol HFA (VENTOLIN HFA) 90 mcg/actuation inhaler Inhale 2 Puffs as instructed every 4 hours as needed for wheezing/shortness of breath. Prescribed by pulmonlogist mometasone-formoterol (DULERA) 50-5 mcg/actuation HFA aerosol inhaler Inhale 2 Puffs as instructed twice daily. tiotropium bromide (SPIRIVA RESPIMAT) 2.5 mcg/actuation inhaler Inhale 2 Puffs as instructed once daily. Inhale two puffs once daily. albuterol (PROVENTIL) 2.5 mg /3 mL (0.083 %) nebulizer solution Use 3 mL via nebulizer every 4 hours as needed for wheezing/shortness of breath. Use over 5-15minutes. lisinopril-hydroCHLOROthiazide (ZESTORETIC) 10-12.5 mg per tablet Take 1 tablet by mouth once daily. famotidine (PEPCID) 20 mg tablet Take 1 tablet by mouth at bedtime as needed. Take this once daily on the days you take meloxicam No current facility-administered medications for this visit. Review of Systems Constitutional: Positive for chills (Off and on), diaphoresis (Notices pillow wet with perspiration when wakes up), fatigue and fever (Sometimes feels hot). HENT: Positive for congestion, postnasal drip, rhinorrhea (minimal), sinus pressure, sinus pain and sore throat. Negative for ear pain. Respiratory: Positive for cough and wheezing. Objective BP 142/90 Pulse 76 Temp 36.9 C (98.5 F) Resp 16 Wt (!) 153.3 kg (338 lb) SpO2 92% BMI 49.91 kg/m Last 5 Encounter Wt Readings: Date: Wt: 01/16/2024 153.3 kg (338 lb) 06/27/2023 152.4 kg (336 lb) 01/19/2023 148.3 kg (327 lb) 01/16/2023 147.4 kg (325 lb) 01/12/2023 148.3 kg (327 lb) No waist measurement recorded Estimated body mass index is 49.91 kg/m as calculated from the following: Height as of 06/27/23: 175.3 cm (5' 9). Weight as of this encounter: 153.3 kg (338 lb). Last 5 Encounter BP Readings: Date: BP: 01/16/2024 142/90 01/19/2023 130/82 01/16/2023 138/82 01/12/2023 136/80 12/15/2022 132/84 Physical Exam Vitals reviewed. Constitutional: Appearance: Normal appearance. HENT: Head: Normocephalic. Comments: No sinus tenderness Mouth/Throat: Mouth: Mucous membranes are moist. Pharynx: Oropharynx is clear. Eyes: Conjunctiva/sclera: Conjunctivae normal. Cardiovascular: Rate and Rhythm: Normal rate and regular rhythm. Heart sounds: Normal heart sounds. Pulmonary: Effort: Pulmonary effort is normal. Breath sounds: Wheezing (Low pitched wheezes with forced expirations) present. Comments: Coughing spells noted--cough sounds tight Musculoskeletal: Right lower le+ Pitting Edema present. Left lower le+ Pitting Edema present. Lymphadenopathy: Cervical: No cervical adenopathy. Skin: General: Skin is warm and dry. Neurological: General: No focal deficit present. Mental Status: He is alert and oriented to person, place, and time. Psychiatric: Mood and Affect: Mood normal. Behavior: Behavior normal. Thought Content: Thought content normal. Judgment: Judgment normal. Assessment and Plan Encounter Diagnosis ICD-10-CM 1. Chronic obstructive pulmonary disease with acute exacerbation (HCC) J44.1 doxycycline (VIBRA-TABS) 100 mg tablet codeine-guaiFENesin (GUAIFENESIN AC) 10-100 mg/5 mL syrup Discussed management. Follow up if not getting better 2. Sinobronchitis J32.9 doxycycline (VIBRA-TABS) 100 mg tablet J40 codeine-guaiFENesin (GUAIFENESIN AC) 10-100 mg/5 mL syrup As noted above Above issues addressed with patient. Patient involved in shared decision making for management of medical issues. History and medications reviewed. Epic updated as needed Refills and/or prescriptions taken care of and meds adjusted as indicated after reviewed history, exam and labs. Carlos Garcia MD documented in this encounter [facility] 01-16-2024 Note HNO ID: [id number] Author: CARLOS GARCIA MD Service: ? Author Type: Physician Type: Progress Notes Filed: 02/15/2024 23:54 Note Text: This note was created using [employer]. Subjective Nancie Ruano is a 58 year old male. Patient presents with: Acute Visit: Productive cough, chest congestion, wheezing, chills, headache, sore throat x1 week SUBJECTIVE: Nancie Ruano is a 58 year old year old gentleman here today for follow up appointment for review of medical conditions. Chest wall pain and headache with the coughing. Gets coughing spells. Worse when lays down. Has not been using his inhalers. Uses albuterol just when out. Not at bedtime or at home. Noted in the past had passed out. Has noted sometimes shakes starting at bottom of feet and goes up. PAST MEDICAL HISTORY Diagnosis Date asthma Esophageal reflux hearing loss left ear deafness Hypertension Current Outpatient Medications Medication Sig lisinopril (ZESTRIL) 5 mg tablet Take 1 tablet by mouth once daily. hydroCHLOROthiazide 25 mg tablet Take 1 tablet by mouth once daily. albuterol HFA (VENTOLIN HFA) 90 mcg/actuation inhaler Inhale 2 Puffs as instructed every 4 hours as needed for wheezing/shortness of breath. Prescribed by pulmonlogist mometasone-formoterol (DULERA) 50-5 mcg/actuation HFA aerosol inhaler Inhale 2 Puffs as instructed twice daily. tiotropium bromide (SPIRIVA RESPIMAT) 2.5 mcg/actuation inhaler Inhale 2 Puffs as instructed once daily. Inhale two puffs once daily. albuterol (PROVENTIL) 2.5 mg /3 mL (0.083 %) nebulizer solution Use 3 mL via nebulizer every 4 hours as needed for wheezing/shortness of breath. Use over 5-15minutes. lisinopril-hydroCHLOROthiazide (ZESTORETIC) 10-12.5 mg per tablet Take 1 tablet by mouth once daily. famotidine (PEPCID) 20 mg tablet Take 1 tablet by mouth at bedtime as needed. Take this once daily on the days you take meloxicam No current facility-administered medications for this visit. Review of Systems Constitutional: Positive for chills (Off and on), diaphoresis (Notices pillow wet with perspiration when wakes up), fatigue and fever (Sometimes feels hot). HENT: Positive for congestion, postnasal drip, rhinorrhea (minimal), sinus pressure, sinus pain and sore throat. Negative for ear pain. Respiratory: Positive for cough and wheezing. Objective BP 142/90 Pulse 76 Temp 36.9 ?C (98.5 ?F) Resp 16 Wt (!) 153.3 kg (338 lb) SpO2 92% BMI 49.91 kg/m? Last 5 Encounter Wt Readings: Date: Wt: 01/16/2024 153.3 kg (338 lb) 06/27/2023 152.4 kg (336 lb) 01/19/2023 148.3 kg (327 lb) 01/16/2023 147.4 kg (325 lb) 01/12/2023 148.3 kg (327 lb) No waist measurement recorded Estimated body mass index is 49.91 kg/m? as calculated from the following: Height as of 06/27/23: 175.3 cm (5' 9). Weight as of this encounter: 153.3 kg (338 lb). Last 5 Encounter BP Readings: Date: BP: 01/16/2024 142/90 01/19/2023 130/82 01/16/2023 138/82 01/12/2023 136/80 12/15/2022 132/84 Physical Exam Vitals reviewed. Constitutional: Appearance: Normal appearance. HENT: Head: Normocephalic. Comments: No sinus tenderness Mouth/Throat: Mouth: Mucous membranes are moist. Pharynx: Oropharynx is clear. Eyes: Conjunctiva/sclera: Conjunctivae normal. Cardiovascular: Rate and Rhythm: Normal rate and regular rhythm. Heart sounds: Normal heart sounds. Pulmonary: Effort: Pulmonary effort is normal. Breath sounds: Wheezing (Low pitched wheezes with forced expirations) present. Comments: Coughing spells noted--cough sounds tight Musculoskeletal: Right lower le+ Pitting Edema present. Left lower le+ Pitting Edema present. Lymphadenopathy: Cervical: No cervical adenopathy. Skin: General: Skin is warm and dry. Neurological: General: No focal deficit present. Mental Status: He is alert and oriented to person, place, and time. Psychiatric: Mood and Affect: Mood normal. Behavior: Behavior normal. Thought Content: Thought content normal. Judgment: Judgment normal. Assessment and Plan Encounter Diagnosis ICD-10-CM 1. Chronic obstructive pulmonary disease with acute exacerbation (HCC) J44.1 doxycycline (VIBRA-TABS) 100 mg tablet codeine-guaiFENesin (GUAIFENESIN AC) 10-100 mg/5 mL syrup Discussed management. Follow up if not getting better 2. Sinobronchitis J32.9 doxycycline (VIBRA-TABS) 100 mg tablet J40 codeine-guaiFENesin (GUAIFENESIN AC) 10-100 mg/5 mL syrup As noted above Above issues addressed with patient. Patient involved in shared decision making for management of medical issues. History and medications reviewed. Epic updated as needed Refills and/or prescriptions taken care of and meds adjusted as indicated after reviewed history, exam and labs. Carlos Garcia MD [facility] 01-15-2024 Miscellaneous Notes Patient has been identified by name and date of : Spouse phones for refill(s) on pt's Lisinopril. New script was written 12/11/23 for 30 days with 5 refills. Pt's instructed to check with the pharmacy again. Date of last office visit in primary care: 06/27/2023 Date of next office visit in primary care: Pt does not have follow up appt. Called and spoke with both he and his . Pt states he does not have insurance at this time. Nurse contacted executive vice president and chief financial officer to have them call him to see if they can set up a financial plan for him. aware as well. Please advise. Thank you. Manisha Jauregui RN. documented in this encounter [facility] 10-07-2023 Discharge summary Note Date/Time October 07, 2023 3:36pm [facility] Medical Records Department [address] [place] [address] Emergency Department Summary 10/07/23 MR#: [id number] Acct: [id number] Name: NANCIE RUANO Rep #:[id number] : 1965 57 From: Natasha WIGGINS PCP: Dr. Carlos Garcia MD Status:RE G ER Location: ED HPI <ROSALIE Walters - Last Filed: 10/07/23 16:56> History of Present Illness Chief Complaint: Lower Extremity Injury Narrative Narrative: 57-year-old male presents with acute on chronic right knee pain. It flared up 3months ago he was seen here had an x-ray and was told it was osteoarthritis. Hewas taking Tylenol every 6 hours which only minimally helps. About 2 weeks ago he saw an orthopedic doctor in [facility] and had another x-ray. He was told he could trial a pill or knee injection for osteoarthritis and elected to trial thepills. He is not sure what it is but it did not help. His knee hurts worse with walking and he has to stand and move at his job at a [employer]. Today he was taking him a while to walk to the car and he decided to come here instead ofgo to work. He had no recent injury. No weakness or paresthesias. No calf pain or swelling or DVT risk factors. [facility] <ROSALIE Walters - Last Filed: 10/07/23 16:56> [facility] Medical History Asthma COPD (chronic obstructive pulmonary disease) Emphysema lung Former smoker HTN (hypertension) Hypertension FREDERICK (obstructive sleep apnea) Home Medications albuterol sulfate 90 mcg/actuation aerosol inhaler 1 puff inhalation Q6H PRN PRNWheezing 04/05/20 [History Last Taken 04/05/20 09:00] lisinopril 10 mg-hydrochlorothiazide 12.5 mg tablet 1 tab PO DAILY 12/17/20 [History Last Taken Unknown] albuterol sulfate 2.5 mg/0.5 mL solution for nebulization 2.5 mg (0.5 mL) inhalation Q6H PRN shortness of breath or wheezing #30 ea 11/07/22 [Rx Last Taken Unknown] albuterol sulfate 90 mcg/actuation aerosol inhaler (ProAir HFA) 1 inh [id number] PRN shortness of breath or wheezing #8.5 grams 11/07/22 [Rx Last Taken Unknown] prednisone 50 mg tablet 50 mg PO DAILY #5 tabs 07/07/23 [Rx Last Taken Unknown] tiotropium bromide 18 mcg capsule with inhalation device (Spiriva with HandiHaler) 1 cap inhalation DAILY 07/07/23 [History Last Taken Unknown] hydrocodone-acetaminophen 5-325mg 5mg-325mg 1 tab PO Q6H PRN pain 3 days #12 tabs 10/07/23 [Rx Last Taken Unknown] Allergy/AdvReac Type Severity Reaction Status Date / Time Penicillins Allergy Unknown Verified 10/07/23 15:00 Family History Father COPD (chronic obstructive pulmonary disease) Mother Breast cancer Surgical History History of left knee replacement S/P ear surgery Social History Smoking Status: Former smoker Tobacco: How many years used: 12 how long ago did patient quit smokin second hand exposure: Yes alcohol intake: never substance use type: does not use ROS <ROSALIE Walters - Last Filed: 10/07/23 16:56> ROS ED ROS Narrative Constitutional: Negative for fever, chills, malaise. Neuro: Negative for motor/sensory dysfunction. Skin: Negative for rash,wound. Musc: Positive for right knee pain, swelling. EXAM <ROSALIE Walters - Last Filed: 10/07/23 16:56> Physical Exam Narrative Exam Narrative: CONST: Patient sitting in no acute distress. EYES: Normal inspection. NECK: Normal inspection. RESP: No respiratory distress, CTAB. CVS: Regular rate and rhythm, no murmur, no gallop. SKIN: Color normal, no rash, warm, dry, intact. EXTREMITIES: Tender palpation over right knee, full range of motion, negative anterior/posterior and varus valgus testing. 5/5 strength in knee flexion/extension and DF/PF, normal sensation, 2+ DP pulse. Compartments soft. NEURO: Oriented x4. PSYCH: Normal affect. Const Vital Signs: 10/07/23 15:01 Temperature 97.1 F L Temperature Source Temporal Pulse Rate 105 H Respiratory Rate 20 H Blood Pressure 165/94 H Blood Pressure Mean 117 Pulse Ox 96 Oxygen Delivery Method Room Air <Dr. Carlos Meyers, - Last Filed: 10/07/23 17:01> Physical Exam Const Vital Signs: 10/07/23 15:01 Temperature 97.1 F L Temperature Source Temporal Pulse Rate 105 H Respiratory Rate 20 H Blood Pressure 165/94 H Blood Pressure Mean 117 Pulse Ox 96 Oxygen Delivery Method Room Air MDM <ROSALIE Walters - Last Filed: 10/07/23 16:56> [facility] Narrative Medical decision making narrative: Patient has chronic right knee pain with history of osteoarthritis. He has had no new injury. He has had 2 x-rays within the last 6 weeks 1 of which is in oursystem and I reviewed on 08/14 which shows arthritic changes. Since there is no new trauma and he is neurovascularly intact I did not order repeat imaging. There is no erythema, warmth, fever so I do not suspect septic joint. His pain was treated with Toradol and [place] and I prescribed a short course of [place] for home and instructed him to see his orthopedic doctor. They offered him joint injections in the past. He was comfortable with this plan and discharged in stable condition. <Dr. Carlos Meyers, - Last Filed: 10/07/23 17:01> [facility] Narrative Medical decision making narrative: Patient has chronic right knee pain with history of osteoarthritis. He has had no new injury. He has had 2 x-rays within the last 6 weeks 1 of which is in oursystem and I reviewed on 08/14 which shows arthritic changes. Since there is no new trauma and he is neurovascularly intact I did not order repeat imaging. There is no erythema, warmth, fever so I do not suspect septic joint. His pain was treated with Toradol and [place] and I prescribed a short course of [place] for home and instructed him to see his orthopedic doctor. They offered him joint injections in the past. He was comfortable with this plan and discharged in stable condition. This patient was seen with a PA/STRUCTURAL SHOP HELPER Individually assessed they patient including history and physical. I have reviewed everything on the chart that is availableand agree with the documentation provided by the PA/STRUCTURAL SHOP HELPER including discussion about the assessment, treatment plan, discussion, and return precautions. Patient with acute on chronic episode of knee pain on the right. Patient with 2recent x-rays which were both negative. He was told he has osteoarthritis. He has declined injection by his orthopedist. He tried oral medication which states is not helping. No evidence of septic joint. No systemic signs or symptoms. Patient treated here in the ED with Toradol and [place]. He will be given a short supply of [place] for home. Patient to follow-up with orthopedist to ensure resolution. Discharge Plan Triage Chief Complaint: Lower Extremity Injury ED Midlevel Provider: Natasha Thomas ED Provider: Carlos Meyers Dx/Rx/DC Orders Clinical Impression: Morbid obesity, Chronic pain of right knee, Osteoarthritis Instructions: Arthritis: Exercise Prescriptions: New hydrocodone-acetaminophen 5-325 mg tablet 1 tab PO Q6H PRN (Reason: pain) 3 Days Qty: 12 0RF No Action albuterol sulfate 1 PUFF inhaler 1 puff inhalation Q6H PRN PRN (Reason: Wheezing) lisinopril-hydrochlorothiazide 1 EACH tablet 1 tab PO DAILY albuterol sulfate [ProAir HFA] 90 mcg/actuation HFA aerosol inhaler 1 inh inhalation Q6H PRN (Reason: shortness of breath or wheezing) Qty: 8.5 0RF albuterol sulfate 2.5 mg/0.5 mL solution for nebulization 2.5 mg inhalation Q6H PRN (Reason: shortness of breath or wheezing) Qty: 30 0RF Rx Instructions: for up to 3 doses tiotropium bromide [Spiriva with HandiHaler] 18 mcg capsule, w/inhalation device 1 cap inhalation DAILY Rx Instructions: puncture 1 cap using device; one dose = 2 inhalations prednisone 50 mg tablet 50 mg PO DAILY Qty: 5 0RF Primary Care Provider: Carlos Garcia Referrals: Carlos Garcia MD [Primary Care Provider] - Activity Restrictions/Additional Instructions: Follow-up with your orthopedic doctor Disposition Disposition: Home, Self Care What to do if you have Problems For any increased pain, shortness of breath, bleeding, nausea or vomiting, chestpain, or any unexpected problems, contact your Primary Care Provider. Call [facility] ([phone]) or report to the closest Emergency Room. Call 911 if necessary. 10/07/23 1656 <Electronically signed by Natasha WIGGINS> Cosigner Signature (if applicable): 10/07/23 170 <Electronically signed by Carlos Meyers DO> CC: Dr. Carlos Garcia MD ~ Signed [facility] Work Phone: [phone] 135-376110-20-2023 NoteHNO ID: [id number] Author: Hannah Roberto Tech Service: ? Author Type: Web Site Developer Type: Progress Notes Filed: 09/01/2023 2:15 PM Note Text: Radiology Service Progress Note PATIENT NAME: Nancie Ruano DATE OF SERVICE: September 01, 2023 TIME: 2:15 PM PATIENT IDENTITY VERIFICATION COMPLETED USING TWO (2) IDENTIFIERS: Name and Date of confirmed by patient verbally. FALL SCREENING: Has the patient had 2 falls in the last year or 1 fall with injury or currently using an Ambulatory Assistive Device (Walker, Cane, Wheelchair, Crutches, etc.)? No PATIENT GENDER DATA: Male PATIENT RELEVANT IMPLANT DATA REVIEWED: Not Applicable RADIOLOGY DEPARTMENT: General X-ray: Exam(s) Completed: Lower Extremity X-Ray(s): Knee, AP / Lat / Tunne / Merchant Right and Wt. Bearing PERIPHERAL IV DATA: Not applicable SIGNED BY: Filippo Downs September 01, 2023 2:15 PMUniversity [facility]aug[facility] Medical [id number] History of Present illness Narrative* Quinton Cheek PA-C - 09/01/2023 2:36 PM EDT Quinton Cheek PA-C Department of Orthopaedics Orthopaedics [address] [place], [place] [id number] Dept: [phone] September 01, 2023 SUBJECTIVE: CHIEF COMPLAINT: Follow Up, New, and Knee Pain of the Right Knee HPI: Mr. Nancie Ruano is a 57 year old male. He presents today with right knee pain that has been present for the past 6 months. He presents today with his . Today he rates his pain a 6 on a scale of 0 to 10 at rest. His pain is worse with activity, especially walking and navigating stairs. He describes the pain as sharp. He has been taking tylenol and utilizing icy hot with some relief. He denies any recent injury, numbness/tingling, weakness, locking/catching, giving out or previous right knee surgery. He did undergo LTKA with Dr. Collins 11 years ago. Past Medical History: PAST MEDICAL HISTORY Diagnosis Date asthma Esophageal reflux hearing loss left ear deafness Hypertension Past Surgical History: PAST SURGICAL HISTORY Procedure Laterality Date PAST SURGICAL HISTORY OF left ear surgery PAST SURGICAL HISTORY OF left leg crushed injury Family History: FAMILY HISTORY Problem Relation Age of Onset Asthma Mother Diabetes Father Coronary Artery Disease Maternal Grandmother other (alzhiemers) Paternal Grandmother Social History: Social History Tobacco Use Smoking status: Former Packs/day: 2.00 Years: 25.00 Additional pack years: 0.00 Total pack years: 50.00 Types: Cigarettes Quit date: 11/13/1994 Years since quittin.8 Smokeless tobacco: Never Tobacco comments: quit 25 years ago Substance Use Topics Alcohol use: Yes Comment: occasional beer Drug use: No Medications: Current Outpatient Medications Medication Sig albuterol HFA (VENTOLIN HFA) 90 mcg/actuation inhaler Inhale 2 Puffs as instructed every 4 hours asneeded for wheezing/shortness of breath. Prescribed by pulmonlogist lisinopril-hydroCHLOROthiazide (ZESTORETIC) 10-12.5 mg per tablet Take 1 tablet by mouth once daily. mometasone-formoterol (DULERA) 50-5 mcg/actuation HFA aerosol inhaler Inhale 2 Puffs as instructed twice daily. tiotropium bromide (SPIRIVA RESPIMAT) 2.5 mcg/actuation inhaler Inhale 2 Puffs as instructed once daily. Inhale two puffs once daily. lisinopril (ZESTRIL) 5 mg tablet Take 1 tablet by mouth once daily. hydroCHLOROthiazide 25 mg tablet Take 1 tablet by mouth once daily. famotidine (PEPCID) 20 mg tablet Take 1 tablet by mouth at bedtime as needed. Take this once daily on the days you take meloxicam albuterol (PROVENTIL) 2.5 mg /3 mL (0.083 %) nebulizer solution Use 3 mL via nebulizer every 4 hours as needed for wheezing/shortness of breath. Use over 5-15minutes. diclofenac, EC, (VOLTAREN) 50 mg EC tablet Take 1 tablet by mouth two times a day. No current facility-administered medications for this visit. Allergies: Hctz [Lisinopril-Hydrochlorothiazide] and Penicillins ROS: General: negative for fatigue, malaise, weight loss/gain Musculoskeletal: see HPI Psych: no depression, anxiety OBJECTIVE: Mr. Nancie Ruano is a pleasant 57 year old in no apparent distress. Gen:There were no vitals taken for this visit. nl development, obese, no deformities ENT: Normocephalic, normal hearing, moist mucosa CV: Pulses:DP/PT= 2+ and symmetric, capillary refill < 2 secs, no peripheral edema/varicosities Skin: no rash, bruising or lesions. Good turgor. Psych: cooperative and appropriate, alert and oriented x 3, good mood and affect. Musculoskeletal: Left knee, bilateral hips and ankles FROM without pain or limitation. RT Knee: Alignment: Varus deformity, Correctable Active Extension 0 and Active Flexion 110 Extension lag: No Pain with ROM: Yes Effusion: Slight Erythema: No Ecchymosis: No Tender to the palpation of Medial joint line and medial patellar facet Pain with patellar compression: No Stability: Anterior/Posterior stable and Varus/Valgus stable Patellofemoral crepitus: Yes Quad Atrophy: No Sharonda's: Negative Anterior drawer: Negative IMAGIN09/04/2023 2:41 PM - Radiology, Oru In Impression IMPRESSION: Mild right knee osteoarthritis. Bone Char Kiln Operator: JORGE A Transcribe Date/Time: Sep 04 2023 2:38P Dictated by : SHIMA RICHTER MD This examination was interpreted and the report reviewed and electronically signed by: SHIMA RICHTER MD on Sep 04 2023 2:39PM EST Results-Findings * * *Final Report* * * DATE OF EXAM: Sep 01 2023 2:06PM BOOGIE [id number] - XR KNEE 4V AP/PA BOTH+LAT/FLOR RT / PROCEDURE REASON: M25.561-Right knee pain, unspecified chronicity * * * * Physician Interpretation * * * * EXAMINATION / TECHNIQUE: XR KNEE 4V AP/PA BOTH+LAT/FLOR RT PATIENT/TECHNOLOGIST PROVIDED HISTORY: RIGHT KNEE PAIN CLINICAL INFORMATION ( PROVIDED BY ORDERING CLINICIAN) : Right knee pain, unspecified chronicity COMPARISON: None RESULT: Mild medial compartment joint space narrowing and small tricompartmental osteophytosis. No fracture or dislocation. No joint effusion. Quadriceps enthesopathy. Limited AP view of the left knee notable for total knee arthroplasty. ASSESSMENT: M17.11 Primary osteoarthritis of right knee (primary encounter diagnosis) M25.561 Right knee pain, unspecified chronicity PLAN: Reviewed images taken today. Discussed treatment options for osteoarthritis including otc anti-inflammatories, prescription anti-inflammatories, weight loss, bracing, physical therapy, and corticosteroid injections. Patient declines injection today. Rx for diclofenac sent to pharmacy. Patient agreeable with plan and will follow up as needed. FOLLOW UP INSTRUCTIONS: As needed Quinton Cheek PA-C documented [facility] History of Present illness Narrative* Hannah Roberto Tech - 09/01/2023 2:00 PM EDT Radiology Service Progress Note PATIENT NAME: Nancie Ruano DATE OF SERVICE: September 01, 2023 TIME: 2:15 PM PATIENT IDENTITY VERIFICATION COMPLETED USING TWO (2) IDENTIFIERS: Name and Date of confirmedby patient verbally. FALL SCREENING: Has the patient had 2 falls in the last year or 1 fall with injury or currently using an Ambulatory Assistive Device (Walker, Cane, Wheelchair, Crutches, etc.)? No PATIENT GENDER DATA: Male PATIENT RELEVANT IMPLANT DATA REVIEWED: Not Applicable RADIOLOGY DEPARTMENT: General X-ray: Exam(s) Completed: Lower Extremity X- Ray(s): Knee, AP / Lat / Tunne / Merchant Right and Wt. Bearing PERIPHERAL IV DATA: Not applicable SIGNED BY: Filippo Downs September 01, 2023 2:15 PM documented in this encounterV[facility]10-04-2023 Miscellaneous Notes* Telephone Encounter - Danica Harrison OCCA - 08/16/2023 3:42 PM EDT Attempted to contact patient in regards to their appointment with Amanda EATON) on 09/01/23 at 1:30. I was unable to LVM due to the VM being full. We are unable to view the X-rays the patient had taken during their ER visit, and we wondering if the patient could bring a hard copy with them to the appointment. If the patient does not have a hardcopy then they will need to arrive 15-20 minutes before the appointment to have X-rays retaken. Will attempt to contact patient again before appointment on 09/01/23. Danica TOM August 16, 2023 3:48 PM documented in this encounterV[facility]10-02-2023 Discharge summary Author Scout Gutierrez [facility] August 14, 2023 11:18pm Note Date/Time August 14, 2023 11 :17pm [facility] Medical Records Department [address] [place] [id number] Emergency Department Summary 08/14/23 MR#: [id number] Acct: [id number] Name: ALANANANCIE Rep #:[id number] : 1965 57 From: Scout Yo PCP: Dr. Carlos Garcia MD Status:RE G ER Location: ED HPI History of Present Illness Chief Complaint: Lower Extremity Injury [facility] Medical History Asthma COPD (chronic obstructive pulmonary disease) Emphysema lung Former smoker HTN (hypertension) Hypertension FREDERICK (obstructive sleep apnea) Home Medications albuterol sulfate 90 mcg/actuation aerosol inhaler 1 puff inhalation Q6H PRN PRNWheezing 04/05/20 [History Last Taken 04/05/20 09:00] lisinopril 10 mg-hydrochlorothiazide 12.5 mg tablet 1 tab PO DAILY 12/17/20 [History Last Taken Unknown] albuterol sulfate 2.5 mg/0.5 mL solution for nebulization 2.5 mg (0.5 mL) inhalation Q6H PRN shortness of breath or wheezing #30 ea 11/07/22 [Rx Last Taken Unknown] albuterol sulfate 90 mcg/actuation aerosol inhaler (ProAir HFA) 1 inh [id number] PRN shortness of breath or wheezing #8.5 grams 11/07/22 [Rx Last Taken Unknown] prednisone 50 mg tablet 50 mg PO DAILY #5 tabs 07/07/23 [Rx Last Taken Unknown] tiotropium bromide 18 mcg capsule with inhalation device (Spiriva with HandiHaler) 1 cap inhalation DAILY 07/07/23 [History Last Taken Unknown] Allergy/AdvReac Type Severity Reaction Status Date / Time Penicillins Allergy Unknown Verified 08/14/23 21:13 Family History Father COPD (chronic obstructive pulmonary disease) Mother Breast cancer Surgical History History of left knee replacement S/P ear surgery Social History Smoking Status: Former smoker Tobacco: How many years used: 12 how long ago did patient quit smokin second hand exposure: Yes alcohol intake: never substance use type: does not use EXAM Physical Exam Const Vital Signs: 08/14/23 21:13 Temperature 97.8 F Temperature Source Temporal Pulse Rate 109 H Respiratory Rate 18 Blood Pressure 147/93 H Blood Pressure Mean 111 Pulse Ox 94 MDM MDM MDM Narrative Medical decision making narrative: HISTORY OF PRESENT ILLNESS: 57-year-old male presents with acute on chronic right knee pain. No injury endorsed. States he is dealt with chronic knee pain for the last ~2 years and has been worse over the last several days. Notes taking oral meloxicam without relief. Denies any fever. Denies a history of surgery to right knee. Does notesimilar symptoms in his left knee however that is since undergone a total knee replacement which he endorses improved his symptoms. He denies any DVT risk factors. REVIEW OF SYSTEMS: Pertinent positives: Right knee pain Pertinent negatives: Weakness, numbness, loss sensation, discoloration, coolnessto touch, unilateral leg swelling PHYSICAL EXAM: Nursing triage notes reviewed, Vital signs reviewed Constitutional: please see mdm Extremities: No edema, decreased range of motion secondary to pain in right kneehowever pain is out of proportion to exam. There is no obvious effusion, compartments are soft, patella appears in good alignment. Intact quadriceps tendon complex. Neuro: Intact sensation L1-S1 dermatomal distributions. Intact 5/5 strength in hip flexion (T12-L3). Knee extension (L2-L4). Ankle dorsiflexion (L4-L5). Ankle plantar flexion (S1). Great toe extension (L5). 2+ patellar and AchillesDTRs. Skin: No rash or lesions noted, no redness or erythema noted MEDICAL DECISION MAKING: Chief Complaint: Knee pain External records reviewed: No recent advanced imaging of the involved extremity Factors affecting care: Status post total knee replacement of the left knee Social determinants of health: Obesity History obtained from others: none Consults: none [facility] Narrative: Patient was hemodynamically stable, afebrile, nontoxic-appearing. Exam with neurovascular intact right lower extremity. No clinical signs of septic arthritis, DVT, arterial occlusion, compartment syndrome, quadriceps tendon rupture I suspect the patient is suffering from osteoarthritis likely benefit from evaluation from pain management and orthopedic surgery for potential replacement. I suspect the patient's symptoms are exacerbated by morbid obesity(BMI 50.2). Encouraged tylenol, ibuprofen and RICE therapy. Encouraged weight loss. ALL IMAGES (IF OBTAINED) HAVE BEEN PERSONALLY REVIEWED AND INTERPRETED BY MYSELF. I obtained an x-ray. X-ray was personally read reviewed by myself and shows no evidence of acute fracture dislocation. The patient and/or family, caregivers express understanding. The patient and/orfamily, caregivers agrees with the plan. Shared decision making: I will have a discussion with the patient and or visitors regarding risk/benefits of further testing or admission. They will be made aware of of the risk/benefits inherent in this decision they will be given the opportunity to voice understanding. Total critical care time today provided was at least 0 [] minutes. This excludes separately billable procedures. Critical care time (if documented) is secondary to the patient having high probability of clinically significant/life threatening deterioration in the patient's condition which required my urgent intervention. Impression: 1. Acute on chronic right knee pain 2. Morbid obesity Dispo: Discharge Radiography Chest X-Ray - ED: Read by ED Physician Diagnostic Testing: Clinical Impression(s) from Imaging Studies Knee X-Ray 08/14/23 21:31 IMPRESSION: No definite acute or significant abnormality seen. No effusion is seen. Electronically Signed: Bruce Espinosa MD at 22:41 EDT , Discharge Plan Triage Chief Complaint: Lower Extremity Injury ED Provider: Scout Gutierrez Dx/Rx/DC Orders Instructions: ED Knee Pain of Uncertain Cause Prescriptions: No Action albuterol sulfate 1 PUFF inhaler 1 puff inhalation Q6H PRN PRN (Reason: Wheezing) lisinopril-hydrochlorothiazide 1 EACH tablet 1 tab PO DAILY albuterol sulfate [ProAir HFA] 90 mcg/actuation HFA aerosol inhaler 1 inh inhalation Q6H PRN (Reason: shortness of breath or wheezing) Qty: 8.5 0RF albuterol sulfate 2.5 mg/0.5 mL solution for nebulization 2.5 mg inhalation Q6H PRN (Reason: shortness of breath or wheezing) Qty: 30 0RF Rx Instructions: for up to 3 doses tiotropium bromide [Spiriva with HandiHaler] 18 mcg capsule, w/inhalation device 1 cap inhalation DAILY Rx Instructions: puncture 1 cap using device; one dose = 2 inhalations prednisone 50 mg tablet 50 mg PO DAILY Qty: 5 0RF Stand Alone Forms: ED Work / School Excuse Primary Care Provider: Carlos Garcia Referrals: Jean Claude Carver MD [Med Staff - Active Staff] - Cesar Seth DO [Med Staff - Active Staff] - Activity Restrictions/Additional Instructions: Thank you for trusting us with your care today! Please take Tylenol (2 pills, 650 mg), ibuprofen (2 pills, 400 mg) every 6 hoursas needed for pain and fever control. Please return to the emergency department if your symptoms change or worsen. Specifically develop discoloration of the involved extremity, severe pain, fever, nausea vomiting, inability to move or feel your involved extremity. Please follow with pain management as well as orthopedic surgery for further outpatient evaluation and management. Disposition Disposition: Home, Self Care What to do if you have Problems For any increased pain, shortness of breath, bleeding, nausea or vomiting, chestpain, or any unexpected problems, contact your Primary Care Provider. Call [facility] ([phone]) or report to the closest Emergency Room. Call 911 if necessary. 08/14/23 [id number] <Electronically signed by Scout Gutierrez DO> Cosigner Signature (if applicable): CC: Dr. Carlos Garcia MD ~ Signed [facility] Work Phone: [phone]) 690-323703-09-2023 History of Present illness Narrative* Pura Leon APRN.MAINTENANCE PERSON - 01/19/2023 8:02 AM EST SUBJECTIVE HPI excerpted from previous viist: Nancie Ruano is a 57 year old male who presents with left ear pain and swelling x1 week. He was treated for otitis externa of both the ears December 15, 2022 with eardrops. He was subsequently seen by Dr. Santiago ENT group provider in [place] and treated with another topical treatment. Now with severe redness pain and swelling of the left external ear and internal ear pain. Today notes taking medications as ordered. External ear pain redness and swelling is decreased on current treatment. Internal ear pain is decreased as well. Notes helping with eardrops. No report of fever. 2 weeks He reports that he quit smoking about 28 years ago. His smoking use included cigarettes. He has a 50.00 pack-year smoking history. He has never used smokeless tobacco. OBJECTIVE PHYSICAL EXAM: BP 130/82 Pulse 71 Resp 16 Wt (!) 148.3 kg (327 lb) SpO2 96% BMI 48.29 kg/m General appearance: alert, cooperative, pleasant, in no acute distress Head: Normocephalic Eyes: conjunctiva/corneas normal Ears: R TM - clear with good landmarks, nl light reflex, L TM -left TM is erythematous, canal is normal, external ear is normal Left-sided facial swelling in the area is resolved Nose: clear Oropharynx: moist without lesions Neck: supple and moderate anterior cervical adenopathy bilaterally Heart: regular rate and rhythm, without murmur Lungs: clear to auscultation, without rales or wheeze, good air exchange ASSESSMENT/PLAN: 1. Acute infection of left external ear - ICD9: 380.10, ICD10: H60.392 (primary diagnosis) Resolving - AZITHROMYCIN 250 MG TABLET - CIPRO HC 0.2 %-1 % EAR DROPS,SUSPENSION - CONSULT TO ENT - DOXYCYCLINE HYCLATE 100 MG TABLET 2. Acute otitis media, left - ICD9: 382.9, ICD10: H66.92 Resolving - AZITHROMYCIN 250 MG TABLET - CIPRO HC 0.2 %-1 % EAR DROPS,SUSPENSION - CONSULT TO ENT - DOXYCYCLINE HYCLATE 100 MG TABLET 3. Left facial swelling - ICD9: 784.2, ICD10: R22.0 Resolved - AZITHROMYCIN 250 MG TABLET - CIPRO HC 0.2 %-1 % EAR DROPS,SUSPENSION - CONSULT TO ENT - DOXYCYCLINE HYCLATE 100 MG TABLET 4. Acute pain of left ear - ICD9: 388.70, ICD10: H92.02 Improved - MELOXICAM 15 MG TABLET Advised return to clinic if not completely resolved at end of treatment. Colon cancer screening Z12.11 -Cologuard ordered Reports does not usually get vaccines. Keep appt Carlos Garcia MD in July. Pura Leon APRN.CNS Medical Decision Making: Problems: Low: Acute, uncomplicated illness or injury Risk: Moderate: Drug management Medical Decision Making Level: 3 - Low documented in this encounterVeterans Health Administration03-02-2023 History of Present illness Narrative* Pura Leon APRN.CNS - 01/12/2023 9:20 AM EST SUBJECTIVE: HEPATITIS B(1 of 3 - 3-dose series) Never done COVID-19 VACCINE(1) Never done PNEUMOCOCCAL(1 - PCV) Never done SPIROMETRY Never done HIV SCREENING Never done BP CONTROLLED (<130/80) Never done DTAP,TDAP,TD(1 - Tdap) Never done ALPHA-1 ANTITRYPSIN DEFICIENCY SCREENING Never done COLORECTAL CANCER SCREENING Never done SHINGRIX VACCINE(1 of 2) Never done ANNUAL PCP TEAM CHRONIC DISEASE VISIT due on 05/08/2021 PROSTATE CANCER SCREENING DISCUSSION due on 06/05/2022 INFLUENZA(1) due on 07/14/2022 DEPRESSION ASSESSMENT Never done HPI Nancie Ruano is a 57 year old male. PMH significnat for ACTIVE PROBLEM LIST Unspecified Hearing Loss Obesity, Class Iii, Bmi 40-49.9 (Morbid Obesity) (Hcc) Tobacco Use Disorder [place] On Cpap Esophageal Reflux Umbilical Hernia Without Mention of Obstruction Or Gangrene Other Ventral Hernia Without Mention of Obstruction Or Gangrene Essential Hypertension, Benign S/P Total Knee Replacement Pain in Joint, Lower Leg Weight Gain Chronic Obstructive Pulmonary Disease (Hcc) HPI exerpted from previous visit. Presents today for follow-up of [facility] emergency department visit December 06, 2022 for back pain. He reported low back pain on the left side for 6 days prior to arrival. He reported heavy lifting prior day of back pain. No radicular symptoms reported. He noted often without pain but any motion or twisting or sitting up hurts. He reported some difficulty getting out of a chair. He reported prior history of back pain but had not previously lasted this long. Reported neck pain in the past. He tried Tylenol Motrin and aspirin without benefit. Exam showed mild tenderness left paraspinal region. Lumbar to sacral area. Pain on the left side radiating to left hip. Pain is reproducible on exam. Exam showed chronic venous stasis changes. Intact pulses lower extremities. Abdomen is benign.Exam was most consistent with myofascial pain. CT was completed and showed mild stranding around the kidney, no diverticulitis. Gallstones present but no sign of fluid or inflammation. Interpretationwas perinephric stranding possibly from a passed stone and right renal cyst. Urinalysis was negative. Symptoms were most consistent with myofascial back pain although he could have passed a stone recently and he was treated for that. Provided with cyclobenzaprine and hydrocodone acetaminophen in the emergency department as well as prednisone 40 mg daily x4. Today reports that the norco did not seem to help much and ibuprofen not lasting very long. Skelexan did help. Back pain location: left lumbar to sacral, radiates to right upper leg Character:sharp with movement, worse with prolonged standing in one place No alarm symptoms reported Also notes ear pain in the canal and external drainage, left greater than right. He noted well-controlled blood pressures at home and dizziness when he took blood pressure medication so he stopped it. Occasional use of albuterol nebulizer and inhaler. Has not been using maintenance inhaler. Today notes that initially his back felt improved and pain returned with heavy lifting at work. Notcurrently doing any stretches. Stopped using meloxicam as it does not seem to be working very well for him. Gets more relief from [id number] ibuprofen. Does note that Skelaxin is helping the most. No report of alarm symptoms. Reports runny nose, wonders if he has seasonal allergies. No other upper respiratory complaints. Review of Systems Constitutional: Negative. Musculoskeletal: Positive for back pain. Objective BP 136/80 Pulse 72 Resp 16 Wt (!) 148.3 kg (327 lb) SpO2 96% BMI 48.29 kg/m Physical Exam Vitals and nursing note reviewed. Constitutional: Appearance: Normal appearance. HENT: Head: Normocephalic and atraumatic. Right Ear: Tympanic membrane normal. There is no impacted cerumen. Left Ear: Tympanic membrane normal. There is no impacted cerumen. Eyes: Conjunctiva/sclera: Conjunctivae normal. Cardiovascular: Rate and Rhythm: Normal rate and regular rhythm. Heart sounds: Normal heart sounds. Pulmonary: Effort: Pulmonary effort is normal. Breath sounds: Normal breath sounds. Abdominal: General: Bowel sounds are normal. Palpations: Abdomen is soft. Musculoskeletal: Lumbar back: Tenderness present. Decreased range of motion. Positive left straight leg raise test. Skin: General: Skin is warm and dry. Neurological: Mental Status: He is alert. Mental status is at baseline. ALLERGIES Allergen Reactions Hctz [Lisinopril-Hy* Other: See Comments dizziness Penicillins Other: See Comments passed Out Loss of consciousness Medications albuterol HFA (VENTOLIN HFA) 90 mcg/actuation inhaler Inhale 2 Puffs as instructed every 4 hours asneeded for wheezing/shortness of breath. Prescribed by pulmonlogist albuterol (PROVENTIL) 2.5 mg /3 mL (0.083 %) nebulizer solution Use 3 mL via nebulizer every 4 hours as needed for wheezing/shortness of breath. Use over 5-15minutes. meloxicam (MOBIC) 15 mg tablet Take 1 tablet by mouth once daily. for pain. Take with food. For back pain mometasone-formoterol (DULERA) 100-5 mcg/actuation inhaler Inhale 2 Puffs as instructed twice daily. Prescribed by pulmonology metaxalone (SKELAXIN) 800 mg tablet Take 1 tablet by mouth three times daily. famotidine (PEPCID) 20 mg tablet Take 1 tablet by mouth at bedtime as needed. Take this once daily on the days you take meloxicam cetirizine (ZYRTEC) 10 mg tablet Take 1 tablet by mouth once daily. PAST MEDICAL HISTORY Diagnosis Date asthma Esophageal reflux hearing loss left ear deafness Hypertension Social History Tobacco Use Smoking status: Former Packs/day: 2.00 Years: 25.00 Pack years: 50.00 Types: Cigarettes Quit date: 11/13/1994 Years since quittin.1 Smokeless tobacco: Never Tobacco comments: quit 25 years ago Substance Use Topics Alcohol use: Yes Comment: occasional beer Drug use: No ASSESSMENT/PLAN: 1. Acute left-sided low back pain with right-sided sciatica - ICD9: 724.2, 724.3, ICD10: M54.41 (primary diagnosis) Back pain is persisting. Notes initially improved now returned with heavy lifting at work. 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 Endorse continue with NSAIDs, gentle range of motion. Skelaxin as needed. Famotidine to protect stomach while taking ibuprofen. Schedule appointment with physical therapy. Let usknow if not improving. - METAXALONE 800 MG TABLET - FAMOTIDINE 20 MG TABLET 3. Chronic obstructive pulmonary disease (HCC) - ICD9: 496, ICD10: J44.9 - SPIROMETRY - BASELINE AND POST DILATOR 4. Screening for HIV (human immunodeficiency virus) - ICD9: V73.89, ICD10: Z11.4 - HIV 1 2 COMBO(AG/AB),WITH REFLEX TO DIFFERENTIATION 5. Chronic obstructive pulmonary disease, unspecified COPD type (HCC) - ICD9: 496, ICD10: J44.9 - HFSND-2-FPLBSMBJX BL 7. Screening for prostate cancer - ICD9: V76.44, ICD10: Z12.5 - PSA/PROSTSPECAG STEPHANY Leon APRN.MAINTENANCE PERSON Medical Decision Making: Problems: Low: Acute, uncomplicated illness or injury Data: Unique test(s) ordered: 3+ Risk: Moderate: Drug management Medical Decision Making Level: 4 - Moderate documented in this encounterVeterans Health Administration02-02-2023 Miscellaneous Notes* Telephone Encounter - Pura Leon APRN.CNS - 12/15/2022 10:38 AM EST OK * Telephone Encounter - Ligia Candelaria LPN - 12/15/2022 10:15 AM EST [facility] pharmacist calling the Cortisporin ear drops are on back order. Asking if you wanted to change rx to something else? Please advise documented in this encounterVeterans Health Administration01-31-2023 Miscellaneous Notes* Telephone Encounter - Fernanda Senior LPN - 12/13/2022 4:30 PM EST Spoke with pt and information listed below given. Pt verbalizes understanding. Fernanda Senior LPN * Telephone Encounter - Carlos Garcia MD - 12/13/2022 4:[address] scan had shown signs of probably having passed a kidney stone with No evidence for renal obstruction however there does appear to be mildnonspecific stranding in the perinephric fat of the left kidney possibly due to recent passage of stone or inflammatory disease. Also has Cholelithiasis without evidence for acute cholecystitis. If pain is as severe as when had to go to ER last time, then recommend ER evaluation as may need pain medication (which we do not have any of here), and possible repeat CT scan to evaluate for kidneystone and blockage of urine outflow from the kidneys. * Telephone Encounter - Fernanda Villalobos Nadeen BATRES - 12/13/2022 3:37 PM EST Pt calling to let you know he had kidney stones and was to ER Pt is having the same severe pain nowand it is not letting up. He has an ER fu 12-15-22 in the office. He worked 11-3 but hurts to walk and sit. Pt was given Vicodin at the hospital and this is gone and he was given a muscle relaxant not helping. Pt wanted your opinion what to do next. Pt has been instructed if he does not here back from us and the pain gets to severe he will have to go to the ER. Please advise pt. Fernanda Senior LPN documented in this encounterVeterans Health Administration01-24-[address] Guan [facility] December 06, 2022 8:14pm Note Date/Time December 06, 2022 4 :12pm [facility] Medical Records Department [address] [place] [address] Emergency Department Summary 12/06/22 MR#: [id number] Acct: [id number] Name: NANCIE RUANO Rep #:[id number] : 1965 56 From: Paulino Guan MD PCP: Dr. Carlos Garcia MD Status:RE ER Location: ED HPI History of Present Illness Chief Complaint: Back Informant: patient Narrative Narrative: Patient has been having lower back pain mostly on the left side for approximately 6 days. He thinks he started last . 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 But heis not sure if he hurt himself or not. He has never had radicular symptoms. The pain in the left does radiate a little to the side but not to the front of his abdomen. He denies any nausea vomiting or change in appetite. He has been eating and drinking normally. He has been moving his bowels normally. He urinates normally. There is no change in color or odor frequency or discomfort. He has not seen blood. The pain is very motion sensitive. He can get in certain positions where he has almost no pain. But any motion and twisting or sitting up hurts. He states he wishes he had a lift chair at home because I would make getting out of the chair easier. He does admit to some long-term difficulty getting up out of the chair likely due to his weight. He occasionally has back pain but he has not had it last this long. He has had some neck pain in the past. He has tried [id number] Tylenol Motrin and aspirin without benefit. [facility] Medical History Asthma COPD (chronic obstructive pulmonary disease) Emphysema lung Former smoker HTN (hypertension) Hypertension FREDERICK (obstructive sleep apnea) Home Medications albuterol sulfate 90 mcg/actuation aerosol inhaler 1 puff inhalation Q6H PRN PRNWheezing 04/05/20 [History Last Taken 04/05/20 09:00] lisinopril 10 mg-hydrochlorothiazide 12.5 mg tablet 1 ea PO DAILY 12/17/20 [History Last Taken Unknown] brompheniramine-phenylpropanol ER 12 mg-75 mg tablet,ext.release 12 hr 1 tab PO BID PRN Cold Symptoms 07/20/21 [History Last Taken Unknown] albuterol sulfate 2.5 mg/0.5 mL solution for nebulization 2.5 mg (0.5 mL) inhalation Q6H PRN shortness of breath or wheezing #30 ea 11/07/22 [Rx Last Taken Unknown] albuterol sulfate 90 mcg/actuation aerosol inhaler (ProAir HFA) 1 inh [id number] PRN shortness of breath or wheezing #8.5 grams 11/07/22 [Rx Last Taken Unknown] prednisone 20 mg tablet 40 mg PO DAILY #8 tabs 11/07/22 [Rx Last Taken Unknown] cyclobenzaprine 10 mg tablet 10 mg PO TID PRN Muscle Spasm #20 TABLETS 12/06/22 [Rx Last Taken Unknown] hydrocodone-acetaminophen 5-325mg 5mg-325mg 1 tab PO Q6H PRN PRN Pain 3 days #10TABLETS 12/06/22 [Rx Last Taken Unknown] Allergy/AdvReac Type Severity Reaction Status Date / Time Penicillins Allergy Unknown Verified 12/06/22 15:00 Family History Father COPD (chronic obstructive pulmonary disease) Mother Breast cancer Surgical History History of left knee replacement S/P ear surgery Social History Smoking Status: Former smoker Tobacco: How many years used: 12 how long ago did patient quit smokin second hand exposure: Yes alcohol intake: never substance use type: does not use ROS ROS ED Constitutional Constitutional ED: Denies chills, fever(s) or subjective Eyes Eyes: Denies change in vision ENT ENT ED: Denies rhinorrhea or sore throat Cardiovascular Cardiovascular: Denies chest pain, palpitations or racing heartbeat Respiratory/Chest Respiratory/Chest: Denies dyspnea Gastrointestinal Gastrointestinal: Denies abdominal pain, constipation, diarrhea, melena, nausea or vomiting Genitourinary Genitourinary ED: Denies dysuria, hematuria or urinary frequency Musculoskeletal Musculoskeletal: Reports back pain; Denies myalgias Integumentary Denies Abrasions or rash Neurologic Neurologic: Denies headache(s), paresthesias or weakness Endocrine Endocrinology: Denies polydipsia or polyuria Hematologic/Lymphatic Hematologic/Lymphatic: Denies easy bleeding or easy bruising Allergic/Immunologic Allergic/Immunologic ED: Denies urticaria EXAM Physical Exam Narrative Exam Narrative: Patient is awake alert no acute distress. He is laying in bed typing on the phone. HEENT shows no sign of trauma. Neck shows no tenderness or pain with motion. Heart is regular no murmur gallop rub or distant tones. Lungs are clear bilaterally. Abdomen is obese but benign. There is absolutely no tenderness that I can elicit anywhere in the abdomen including none at the left lower quadrant. No rebound or guarding. He does not really have CVA tenderness. Back: He does have some mild tenderness to the left paraspinal mostly. Minimal on the right. This is down very low just above the sacrum. But I see no skin changes in this area. He states the pain on the left side goes toward what he describes as the left hip. But it does not wrap around. It is also not tender in these areas. Patient does have clear soreness and reproduction with motion twisting and sitting up. Extremities show chronic edema and venous stasis changes and prior surgical scars but no acute abnormality. No erythema or warmth. No tenderness. No asymmetry. He does have intact peripheral pulses Neurologic shows sensation and strength are intact. Const Vital Signs: 12/06/22 15:00 12/06/22 16:46 12/06/22 17:07 Temperature 97.9 F Temperature Source Temporal Pulse Rate 76 79 82 Respiratory Rate 15 18 19 H Blood Pressure 157/83 H 180/93 H 180/93 H Blood Pressure Mean 107 122 122 Pulse Ox 98 97 97 Oxygen Delivery Method Room Air Room Air Room Air MDM MDM MDM Narrative Medical decision making narrative: Patient's exam and history is most consistent with myofascial pain. However, his CT does show some changes. My independent interpretation of his CT shows some mild stranding around the kidney. I see no diverticulitis. There is a large gallstone but no sign of fluid or inflammation. 5 reading shows similar findings but does indicate perinephric stranding possibly from a passed stone. They also noted a right renal cyst. I did add urinalysis. No sign of infection or blood. This patient's symptoms are still more consistent with myofascial back pain. Although he could have passed a stone recently so we will treat him as that. His pain is starting to come back. I will give him some meds for pain for a fewdays but I will also give him a muscle relaxant because his history is still more myofascial. He still has no abdominal pain or tenderness. I do not think blood work is going to change our diagnosis or treatment at this point. Lab Data Attestation: I reviewed the patient's lab results. Labs: Laboratory Results - last 24 hr 12/06/22 18:05 Urine Color Yellow Urine Clarity Clear Urine pH 7.0 Ur Specific [place] 1.010 Urine Protein Negative Urine Glucose (UA) Normal Urine Ketones Negative Urine Occult Blood Negative Urine Nitrite Negative Urine Bilirubin Negative Urine Urobilinogen Normal Ur Leukocyte Esterase 25 H Urine RBC 0 SEEN Urine WBC 0 SEEN Ur Squamous Epith Cells 0-5 SEEN Urine Bacteria 0 SEEN Urine Mucus 0 SEEN Radiography Diagnostic Testing: Clinical Impression(s) from Imaging Studies Abdomen/Pelvis CT 12/06/22 16:05 IMPRESSION: Cholelithiasis without evidence for acute cholecystitis.. No evidence for renal obstruction however there does appear to be mild nonspecific stranding in the perinephric fat of the left kidney possibly due to recent passage of stone or inflammatory disease. Small right renal cyst which will not require additional imaging. Electronically Signed: Asim Zhang MD at 16:51 EST Reading Location ID and State: [address] [place] [address] , Service support , Discharge Plan Triage Chief Complaint: Back ED Provider: Paulino Guan Dx/Rx/DC Orders Clinical Impression: Back pain, Ureterolithiasis Instructions: ED Back Pain (Acute or Chronic), ED Kidney Stone, Passed Prescriptions: New cyclobenzaprine [cyclobenzaprine] 10 mg tablet 10 mg PO TID PRN (Reason: Muscle Spasm) Qty: 20 0RF hydrocodone-acetaminophen [hydrocodone-acetaminophen] 5-325 mg tablet 1 tab PO Q6H PRN PRN (Reason: Pain) 3 Days Qty: 10 0RF No Action albuterol sulfate 1 PUFF inhaler 1 puff inhalation Q6H PRN PRN (Reason: Wheezing) lisinopril-hydrochlorothiazide 1 EACH tablet 1 ea PO DAILY DayQuil Allergy 12-HR 12-75 mg Tablet Extended Release 12 Hr 1 tab PO BID PRN (Reason: Cold Symptoms) albuterol sulfate [ProAir HFA] 90 mcg/actuation HFA aerosol inhaler 1 inh inhalation Q6H PRN (Reason: shortness of breath or wheezing) Qty: 8.5 0RF albuterol sulfate 2.5 mg/0.5 mL solution for nebulization 2.5 mg inhalation Q6H PRN (Reason: shortness of breath or wheezing) Qty: 30 0RF Rx Instructions: for up to 3 doses prednisone 20 mg tablet 40 mg PO DAILY Qty: 8 0RF Primary Care Provider: Carlos Garcia Referrals: Carlos Garcia MD [Primary Care Provider] - 3-5 Days Disposition Disposition: Home, Self Care What to do if you have Problems For any increased pain, shortness of breath, bleeding, nausea or vomiting, chestpain, or any unexpected problems, contact your Primary Care Provider. Call [facility] ([phone]) or report to the closest Emergency Room. Call 911 if necessary. 12/06/222013 <Electronically signed by Paulino Guan MD> Cosigner Signature (if applicable): CC: Dr. Carlos Garcia MD ~ Signed [facility] Work Phone: 1(238) 465-994911-07-2022 Miscellaneous Notes* Telephone Encounter - Gifty Cuello LPN - 09/19/2022 11:17 AM EST LEFT MESSAGE FOR PATIENT TO CALL OFFICE. Letter send asking patient to scheduled an appointment. * Telephone Encounter - Fernanda Senior LPN - 09/09/2022 9:30 AM EDT Left a message for pt to call the office and ask to speak to a nurse. Fernanda Senior LPN * Telephone Encounter - Julia Danielson Ma - 09/07/2022 11:02 AM EDT Home number is not a working number. LM on other number that is listed for patient to return call * Telephone Encounter - Carlos Garcia MD - 08/31/2022 7:52 PM EDT Needs follow up--last seen in office by Pura 01/11/21 If does not get labs elsewhere and is due, can order labs to do prior. The following approved medication requests have been transmitted electronically. Requested Prescriptions Signed Prescriptions Disp Refills lisinopril-hydroCHLOROthiazide (PRINZIDE,ZESTORETIC) 10-12.5 mg per tablet 90 tablet 0 Sig: Take 1 tablet by mouth every morning. Authorizing Provider: CARLOS GARCIA MD * Telephone Encounter - Boogie Rojas Ma - 08/31/2022 10:23 AM EDT JIMMY: 02/04/2021 Last refill: 05/13/2022 QTY: 90 Refills: 0 Patient's request for medication is as follows: Requested Prescriptions Pending Prescriptions Disp Refills lisinopril-hydroCHLOROthiazide (PRINZIDE,ZESTORETIC) 10-12.5 mg per tablet 90 tablet 0 Sig: Take 1 tablet by mouth every morning. Please approve the above prescription(s) to electronically send to pharmacy. Boogie Rojas Ma * Telephone Encounter - Ivonne Nur Pss - 08/31/2022 8:55 AM EDT Patient has been identified by name and date of : Yes Requested Prescriptions Pending Prescriptions Disp Refills lisinopril-hydroCHLOROthiazide (PRINZIDE,ZESTORETIC) 10-12.5 mg per tablet 90 tablet 0 Sig: Take 1 tablet by mouth every morning. RX INSTRUCTIONS: Patient aware RX will be sent to pharmacy. No need to notify patient. Ivonne Lorenz documented in this encounterV[facility]07-15-2022 Miscellaneous Notes* Telephone Encounter - Marianne Lorenz - 05/27/2022 8:24 AM EDT 2 nd attempt left message on cell as Home phone is no longer active. Patient is due for lab and Needs appt -schedule with me in 1 to 2 months, PCP in 6 to 12 months. Unable to reach letter also sent * Telephone Encounter - Marianne Lorenz - 05/25/2022 11:30 AM EDT 1st attempt left message on cell as Home phone is no longer active. Patient is due for lab and Needs appt -schedule with me in 1 to 2 months, PCP in 6 to 12 months. * Telephone Encounter - Rebecca Varghese LPN - 05/13/2022 4:19 PM EDT Please call pt to arrange lab appt and appt with [employer] and pcp. * Telephone Encounter - Pura Leon APRN.MAINTENANCE PERSON - 05/13/2022 4:00 PM EDT Refill sent Needs appt -schedule with me in 1 to 2 months, PCP in 6 to 12 months. CMP ordered * Telephone Encounter - Rebecca Varghese LPN - 05/13/2022 10:49 AM EDT Last seen 07/29/21. Next appt due when? * Telephone Encounter - Jina Lorenz - 05/13/2022 9:01 AM EDT Patient has been identified by name and date of : Yes Pending Prescriptions Disp Refills LISINOPRIL 10 MG-HYDROCHLOROTHIAZIDE 12.5 MG TABLET 90 tablet 3 Sig: Take 1 tablet by mouth every morning. RICHARDSON: No RX INSTRUCTIONS: patient has 1 pill for 7/2 Patient aware RX will be sent to pharmacy. No need to notify patient. Jina Lorenz documented in this encounterV[facility] Administration09-15-2021 History of Present illness Narrative* Ani Aranda RT(R) - 07/28/2021 10:00 AM EDT Radiology Service Progress Note PATIENT NAME: Nancie Ruano DATE OF SERVICE: July 28, 2021 TIME: 10:12 AM PATIENT IDENTITY VERIFICATION COMPLETED USING TWO (2) IDENTIFIERS: Name and Date of confirmedby patient verbally. FALL SCREENING: Has the patient had 2 falls in the last year or 1 fall with injury or currently using an Ambulatory Assistive Device (Walker, Cane, Wheelchair, Crutches, etc.)? No PATIENT GENDER DATA: Male PATIENT RELEVANT IMPLANT DATA REVIEWED: Yes RADIOLOGY DEPARTMENT: General X-ray: Exam(s) Completed: Chest X-Ray PERIPHERAL IV DATA: Not applicable SIGNED BY: RT Kasi(R) July 28, 2021 10:12 AM documented in this encounterVeter[facility] Administration06-12-2012 History of Past illness Narrative* Problem Noted Date Resolved Date Pain in joint, pelvic region and thigh 2 04/24/2012 Osteoarthrosis, unspecified whether generalized or localized, lower leg 03/22/2012 03/22/2012 asthma 08/17/2016 documented as of this encounter (statuses as of 05/27/2022) [facility] History of Past illness Narrative* Problem Noted Date Resolved Date Pain in joint, pelvic region and thigh 2 04/24/2012 Osteoarthrosis, unspecified whether generalized or localized, lower leg 03/22/2012 03/22/2012 asthma 08/17/2016 documented as of this encounter (statuses as of 09/19/2022) [facility] History of Past illness Narrative* Problem Noted Date Resolved Date Pain in joint, pelvic region and thigh 2 04/24/2012 Osteoarthrosis, unspecified whether generalized or localized, lower leg 03/22/2012 03/22/2012 asthma 08/17/2016 documented as of this encounter (statuses as of 12/14/2022) [facility] History of Past illness Narrative* Problem Noted Date Resolved Date Pain in joint, pelvic region and thigh 2 04/24/2012 Osteoarthrosis, unspecified whether generalized or localized, lower leg 03/22/2012 03/22/2012 asthma 08/17/2016 documented as of this encounter (statuses as of 12/15/2022) [facility] History of Past illness Narrative* Problem Noted Date Resolved Date Pain in joint, pelvic region and thigh 2 04/24/2012 Osteoarthrosis, unspecified whether generalized or localized, lower leg 03/22/2012 03/22/2012 asthma 08/17/2016 documented as of this encounter (statuses as of 01/12/2023) [facility] History of Past illness Narrative* Problem Noted Date Resolved Date Pain in joint, pelvic region and thigh 2 04/24/2012 Osteoarthrosis, unspecified whether generalized or localized, lower leg 03/22/2012 03/22/2012 asthma 08/17/2016 documented as of this encounter (statuses as of 01/19/2023) [facility] History of Past illness Narrative* Problem Noted Date Diagnosed Date Resolved Date Pain in joint, pelvic region and thigh 04/24/2012 04/24/2012 Osteoarthrosis, unspecified whether generalized or localized, lower leg 03/22/201203/13 asthma 08/17/2016 documented as of this encounter (statuses as of 08/18/2023) [facility] History of Past illness Narrative* Problem Noted Date Diagnosed Date Resolved Date Pain in joint, pelvic region and thigh 04/24/2012 04/24/2012 Osteoarthrosis, unspecified whether generalized or localized, lower leg 03/22/201203/13 asthma 08/17/2016 documented as of this encounter (statuses as of 09/05/2023) [facility] History of Past illness Narrative* Problem Noted Date Diagnosed Date Resolved Date Pain in joint, pelvic region and thigh 04/24/2012 04/24/2012 Osteoarthrosis, unspecified whether generalized or localized, lower leg 03/22/201203/13 asthma 08/17/2016 documented as of this encounter (statuses as of 01/15/2024) [facility] of Past illness Narrative* Problem Noted Date Diagnosed Date Resolved Date Pain in joint, pelvic region and thigh 04/24/2012 04/24/2012 Osteoarthrosis, unspecified whether generalized or localized, lower leg 03/22/201203/13 asthma 08/17/2016 documented as of this encounter (statuses as of 02/16/2024) [facility] Dupree [facility] December 14, 2022 3:07am Note Date/Time December 14, 2022 3 :01am [facility] Medical Records Department [address] [place] [address] Emergency Department Summary 12/14/22 MR#: [id number] Acct: [id number] Name: NANCIE RUANO Rep #:[id number] : 1965 56 From: Julius Dupree MD PCP: Dr. Carlos Garcia MD Status:RE G ER Location: ED HPI History of Present Illness Chief Complaint: Flank Pain Detail of Chief Complaint: Left lower back pain for a week. Informant: patient Onset/Context/Timing Onset: Days Context: Gradual Onset Timing: Continuous Quality: Dull and Aching Current Severity: Mild Maximum Severity: Moderate Worsened by: improves with Movement and Bending Relieved by: Remaining Still Associated Symptoms Associated Symptoms: Negative for Numbness, Tingling, Radiation to Right Leg, Radiation to Left Leg, Fever, Abdominal Pain, Dysuria, Unable to Ambulate, Unable to Transfer, Urinary Retention, Urinary Incontinence, Constipation or Fecal Incontinence Narrative Narrative: 56-year-old male history of COPD and hypertension. Had left lower back pain forapproximately a week. Was seen in the emergency department 1 week ago on the had a CAT scan had a very questionable read of a possible kidney stone. Hewas treated with a muscle relaxant which sounds like Flexeril and [place]. Said his pain really has not changed. Is worse with movement. He denies any dysuriahematuria no trouble voiding. No fall or trauma. No fever or chills. Prior similar symptoms: No Recent Illness/Hospitalization: No PFSH PFSH Medical History Asthma COPD (chronic obstructive pulmonary disease) Emphysema lung Former smoker HTN (hypertension) Hypertension FREDERICK (obstructive sleep apnea) Home Medications albuterol sulfate 90 mcg/actuation aerosol inhaler 1 puff inhalation Q6H PRN PRNWheezing 04/05/20 [History Last Taken 04/05/20 09:00] lisinopril 10 mg-hydrochlorothiazide 12.5 mg tablet 1 ea PO DAILY 12/17/20 [History Last Taken Unknown] brompheniramine-phenylpropanol ER 12 mg-75 mg tablet,ext.release 12 hr 1 tab PO BID PRN Cold Symptoms 07/20/21 [History Last Taken Unknown] albuterol sulfate 2.5 mg/0.5 mL solution for nebulization 2.5 mg (0.5 mL) inhalation Q6H PRN shortness of breath or wheezing #30 ea 11/07/22 [Rx Last Taken Unknown] albuterol sulfate 90 mcg/actuation aerosol inhaler (ProAir HFA) 1 inh [id number] PRN shortness of breath or wheezing #8.5 grams 11/07/22 [Rx Last Taken Unknown] prednisone 20 mg tablet 40 mg PO DAILY #8 tabs 11/07/22 [Rx Last Taken Unknown] cyclobenzaprine 10 mg tablet 10 mg PO TID PRN Muscle Spasm #20 TABLETS 12/06/22 [Rx Last Taken Unknown] hydrocodone-acetaminophen 5-325mg 5mg-325mg 1 tab PO Q6H PRN PRN Pain 3 days #10TABLETS 12/06/22 [Rx Last Taken Unknown] metaxalone 800 mg tablet 800 mg PO TID PRN muscle pain #21 tabs 12/14/22 [Rx Last Taken Unknown] Allergy/AdvReac Type Severity Reaction Status Date / Time Penicillins Allergy Unknown Verified 12/14/22 02:38 Family History Father COPD (chronic obstructive pulmonary disease) Mother Breast cancer Surgical History History of left knee replacement S/P ear surgery Social History Smoking Status: Former smoker Tobacco: How many years used: 12 how long ago did patient quit smokin second hand exposure: Yes alcohol intake: never substance use type: does not use ROS ROS ED ROS Narrative Denies recent illness. Left flank pain. Worse with movement. Review of Systems ROS Unobtainable: Denies due to encephalopathy Constitutional Constitutional ED: Denies chills or fever(s) Eyes Eyes: Denies blurry vision ENT ENT ED: Denies ear pain Cardiovascular Cardiovascular: Denies chest pain or palpitations Respiratory/Chest Respiratory/Chest: Denies dyspnea or dyspnea on exertion Gastrointestinal Gastrointestinal: Denies abdominal pain, constipation, diarrhea, melena, nausea or vomiting Genitourinary Genitourinary ED: Denies dysuria or hematuria Musculoskeletal Musculoskeletal: Reports back pain; Denies arthralgias Integumentary Denies abscess Neurologic Neurologic: Denies headache(s) Psychiatric Psychiatric: Denies anxiety Endocrine Endocrinology: Denies cold intolerance Hematologic/Lymphatic Hematologic/Lymphatic: Denies easy bleeding or easy bruising Allergic/Immunologic Allergic/Immunologic ED: Denies mouth swelling or tongue swelling EXAM Physical Exam Narrative Exam Narrative: This is a male vital signs stable afebrile. H EENT exam unremarkable. Neck nontender no lymphadenopathy. Lungs clear to auscultation bilaterally. Heart regular rhythm rate about 90 no murmur. Chest were nontender. Abdomen soft, obese nontender, nondistended normal bowel sounds no peritoneal signs. No pulsatile mass. No hernia. Back spine nontender right side nontender his left. Lumbar soft tissue musculature is obviously tender to palpation it is worse when he goes from a lying to a sitting upright position. Exam is consistent with musculoskeletal back pain. He has no bone or spine tenderness. He has normal motor strength and sensation both upper and lower extremities. Neurologic exam is normal. No cauda equina. Const Vital Signs: 12/14/22 02:35 12/14/22 02:38 12/14/22 02:39 Temperature 97.5 F L 97.5 F L Temperature Source Oral Oral Pulse Rate 89 89 Respiratory Rate 16 16 Respiratory Effort Normal Non-Labored Respiratory Pattern Normal Blood Pressure 184/101 H 184/101 H Blood Pressure Mean 128 128 Pulse Ox 98 99 Oxygen Delivery Method Room Air Room Air Positive well nourished, well developed and obese; Negative for cachectic, contractures or unkempt General Appearance ED: well developed and NAD; Negative for unkempt, cachectic, contractures or pallor Nutritional Appearance: obese; Negative for cachectic HEENT Reports moist mucous membranes; Denies dry mucous membranes Negative for trauma or tenderness Mouth ED: No dry mucous membranes Mouth: No dry mucous membranes Eyes EOMs intact bilaterally General Eye ED: Negative for pale conjunctiva or scleral icterus Neck no lymphadenopathy, supple and no JVD General: Negative for tenderness Thyroid: Negative for other Resp normal respiratory effort and clear to auscultation bilaterally Effort and Inspection: Negative for pain with movement Auscultation: Negative for rales, rhonchi or wheezes Cardio regular rate, regular rhythm, S1 normal heart sound, S2 normal heart sound and no murmurs Rate: Negative for bradycardia or tachycardic GI normal to inspection, nondistended, normoactive bowel sounds, soft to palpation,non-tender, non-distended and no masses Inspection: Negative for abdominal distention Auscultation: Negative for hyperactive bowel sounds Palpation: Negative for tender or guarding Back/Spine normal to inspection and no thoracic nor lumbar tenderness Back/Spine Narrative: Left-sided paralumbar soft tissue tenderness consistent with paralumbar muscle strain and spasm. Spines nontender. No signs of trauma. No bruising or redness. No warmth. General Back: Negative for CVA tenderness Cervical Spine: Negative for cervical spine tenderness and Negative for paracervical muscle tenderness Thoracic Spine / Upper Back: paraspinal muscle tenderness Lumbar Spine / Lower Back: Negative for ROM limited Extremity normal to inspection General Extremety ED: Negative for edema or tenderness General Extremity: Negative for edema Neuro oriented x3 and no sensory deficits noted Sensorium / Orientation: alert; Negative for confused, lethargic or stuporous Motor Exam: strength 5/5 throughout Psych mental status grossly normal Appearance: Negative for unkempt Attitude: No agitated Mood & Affect: Negative for depressed Skin no rashes or lesions noted and no wounds General Skin Exam: Negative for jaundice or pallor Lesions: No lesion noted Rashes: No rashes noted Trauma: Negative for abrasion or puncture Wounds: Negative for wounds noted MDM MDM MDM Narrative Medical decision making narrative: 56-year-old male with 1 week history of left lower back pain is totally reproducible. I reviewed his CAT scan from before. Clinically it Ultec is a kidney stone. Is totally reproducible pain. Is worse with movement and twisting. It appears to be left lumbar muscle spasm. Hot shower. Warm bath. Massage. Motrin. Will be given a dose of Skelaxin here and placed on it 3 times a day for a week. Motrin for pain. Follow-up if not improving. His appointment to see his physician later today. Discharge Plan Triage Chief Complaint: Flank Pain ED Provider: Julius Dupree Dx/Rx/DC Orders Clinical Impression: Back muscle spasm Instructions: ED Back Spasm, No Trauma Prescriptions: New metaxalone 800 mg tablet 800 mg PO TID PRN (Reason: muscle pain) Qty: 21 0RF No Action albuterol sulfate 1 PUFF inhaler 1 puff inhalation Q6H PRN PRN (Reason: Wheezing) lisinopril-hydrochlorothiazide 1 EACH tablet 1 ea PO DAILY DayQuil Allergy 12-HR 12-75 mg Tablet Extended Release 12 Hr 1 tab PO BID PRN (Reason: Cold Symptoms) albuterol sulfate [ProAir HFA] 90 mcg/actuation HFA aerosol inhaler 1 inh inhalation Q6H PRN (Reason: shortness of breath or wheezing) Qty: 8.5 0RF albuterol sulfate 2.5 mg/0.5 mL solution for nebulization 2.5 mg inhalation Q6H PRN (Reason: shortness of breath or wheezing) Qty: 30 0RF Rx Instructions: for up to 3 doses prednisone 20 mg tablet 40 mg PO DAILY Qty: 8 0RF cyclobenzaprine [cyclobenzaprine] 10 mg tablet 10 mg PO TID PRN (Reason: Muscle Spasm) Qty: 20 0RF hydrocodone-acetaminophen [hydrocodone-acetaminophen] 5-325 mg tablet 1 tab PO Q6H PRN PRN (Reason: Pain) 3 Days Qty: 10 0RF Primary Care Provider: Carlos Garcia Referrals: Carlos Garcia MD [Primary Care Provider] - 3-5 Days if not improving Activity Restrictions/Additional Instructions: Motrin for pain. Hot shower. Warm bath. Massage. The muscle relaxant Skelaxin 3 times a day. Follow-up with your doctor. This appears to be musculoskeletal back pain and not a kidney stone. Disposition Disposition: Home, Self Care What to do if you have Problems For any increased pain, shortness of breath, bleeding, nausea or vomiting, chestpain, or any unexpected problems, contact your Primary Care Provider. Call [facility] ([phone]) or report to the closest Emergency Room. Call 911 if necessary. 12/14/22 0307 <Electronically signed by Julius Dupree MD> Cosigner Signature (if applicable): CC: Dr. Carlos Garcia MD ~ Signed [facility] Work Phone: Evaluation + Plan note No data available for this section [facility] Evaluation noteNo assessment information available [facility] Work Phone: Evaluation note* Diagnosis Essential hypertension, benign [facility]* Diagnosis Essential hypertension, benign documented in this encounter [facility]* Diagnosis Acute left-sided low back pain with right-sided sciatica- Primary Encounter for immunization Need for other specified prophylactic vaccination against single bacterial disease Chronic obstructive pulmonary disease, unspecified COPD type (HCC) Screening for HIV (human immunodeficiency virus) Special screening examination for other specified viral diseases Screening for colon cancer Special screening for malignant neoplasms, colon Screening for prostate cancer Special screening for malignant neoplasm of prostate documented in this encounter [facility]* Diagnosis Acute infection of left external ear- Primary Acute otitis media, left Unspecified otitis media Left facial swelling Swelling, mass, or lump in head and neck Acute pain of left ear Colon cancer screening Special screening for malignant neoplasms, colon documented in this encounter [facility] note* Diagnosis Primary osteoarthritis of right knee- Primary Primary localized osteoarthrosis, lower leg Right knee pain, unspecified chronicity documented in this encounter [facility] note* Diagnosis Chronic obstructive pulmonary disease with acute exacerbation (HCC)- Primary Obstructive chronic bronchitis with exacerbation Sinobronchitis Unspecified sinusitis (chronic) documented in this encounter [facility] note* Diagnosis Chronic obstructive pulmonary disease, unspecified COPD type (HCC) documented in this encounter [facility] note* Diagnosis Lumbar pain- Primary Lumbago Lumbar pain Lumbago documented in this encounter [facility] note* Diagnosis Lumbar pain Lumbago documented in this encounter [facility] note* Diagnosis Right knee pain, unspecified chronicity documented in this encounter [facility] note* Diagnosis SOBOE (shortness of breath on exertion) Shortness of breath documented in this encounter [facility] note* Diagnosis Wellness examination- Primary Chronic obstructive pulmonary disease, unspecified COPD type (HCC) Arthralgia of multiple joints Pain in joint, multiple sites Reactive hypoglycemia Hypoglycemia, unspecified Vitamin D deficiency Unspecified vitamin D deficiency Screening for prostate cancer Special screening for malignant neoplasm of prostate Screening for depression Encounter for screening examination for other mental health and behavioral disorders Encounter for therapeutic drug monitoring documented in this encounter [facility] note* Diagnosis Arthralgia of multiple joints Pain in joint, multiple sites documented in this encounter [facility] note* Diagnosis Arthralgia of multiple joints- Primary Pain in joint, multiple sites Primary osteoarthritis of right knee Primary localized osteoarthrosis, lower leg documented in this encounter [facility] note* Diagnosis Chronic pain of right knee- Primary Chronic obstructive pulmonary disease (HCC) Chronic airway obstruction, not elsewhere classified Cervicalgia Gastroesophageal reflux disease, unspecified whether esophagitis present Obesity, morbid, BMI 50 or higher (HCC) Morbid obesity Transportation insecurity Encounter for immunization Need for other specified prophylactic vaccination against single bacterial disease documented in this encounter [facility] note* Diagnosis Primary osteoarthritis of right knee Primary localized osteoarthrosis, lower leg documented in this encounter [facility] note* Diagnosis Chronic pain of right knee- Primary Obesity, Class III, BMI 40-49.9 (morbid obesity) (HCC) Morbid obesity Gastroesophageal reflux disease, unspecified whether esophagitis present Chronic obstructive pulmonary disease, unspecified COPD type (HCC) [facility] Discharge instructions Additional Instructions Motrin for pain. Hot shower. Warm bath. Massage. The muscle relaxant Skelaxin 3 times a day. Follow-up with your doctor. This appears to be musculoskeletal back pain and not a kidney stone.[facility] Work Phone: Hospital Discharge instructions Additional Instructions Thank you for trusting us with your care today! Please take Tylenol (2 pills, 650 mg), ibuprofen (2 pills, 400 mg) every 6 hours as needed for pain and fever control. Please return to the emergency department if your symptoms change or worsen. Specifically develop discoloration of the involved extremity, severe pain, fever, nausea vomiting, inability to move or feel your involved extremity. Please follow with pain management as well as orthopedic surgery for further outpatient evaluation and management.[facility] Work Phone: Hospital Discharge instructions Additional Instructions [facility] Work Phone: Hospital Discharge instructions No data available for this section [facility] Progress note No data available for this section [facility] Reason for referral (narrative)* Outpatient Procedure (Routine) - Authorized Specialty Diagnoses / Procedures Referred By Gilda t Referred To Contact [facility] Diagnoses Chronic obstructive pulmonary disease (HCC) Procedures SPIROMETRY - BASELINE AND POST DILATOR BRNCDILAT RSPSE SPMTRY PRE&POST-BRNCDILAT ADMN Pura Leon APRN.MAINTENANCE PERSON [address] [place] [address] Respiratory [place] [address] [place] [address] Referral ID Status Reason Start Date Expiration Date Visits Requested Visits Authorized [id number] Authorized Auto-Generat ed Referral 01/12/2023 02/11/2024 1 1 * Medication Prior Authorization - Closed Specialty Diagnoses / Procedures Referred By Contac t Referred To Contact Diagnoses Acute left-sided low back pain with right-sided sciatica Pura Leon APRN.MAINTENANCE PERSON [address] [place] [address] Referral ID Status Reason Start Date Expiration Date Visits Re quested Visits Authorized [id number] Closed 1 1 [facility] for referral (narrative)* Diagnostic Procedure Only (Routine) - Closed Specialty Diagnoses / Procedures Referred By Contac t Referred To Contact XR IMAGING Diagnoses Right knee pain, unspecified chronicity Procedures XR KNEE GENERAL 4V AP BOTH/PA BOTH/LAT/MERC RIGHT RADIOLOGIC EXAM KNEE COMPLETE 4/MORE VIEWS Quinton Cheek PA-C [facility] [place] [address] [place] [address] Referral ID Status Reason Start Date Expiration Date V isits Requested Visits Authorized [id number] Closed Auto-Generate d Referral 09/01/2023 09/30/2024 1 1 [facility] for referral (narrative)* Diagnostic Procedure Only (Urgent) - Pending Review Specialty Diagnoses / Procedures Referred By Contac t Referred To Contact XR IMAGING Diagnoses Lumbar pain Procedures XR LUMBAR GENERAL 3V AP/LAT/L5-S1 RADEX SPINE LUMBOSACRAL 2/3 VIEWS Perri Green APRN.[employer]LEYB[employer] REFEREE [address] [place] [address] [place] [address] Referral ID Status Reason Start Date Expiration Date Visits Requested Visits Authorized [id number] Pending Review Auto-Generat ed Referral 06/17/2024 07/17/2025 1 1 [facility] for referral (narrative)* Diagnostic Procedure Only (Urgent) - Pending Review Specialty Diagnoses / Procedures Referred By Contac t Referred To Contact XR IMAGING Diagnoses Lumbar pain Procedures XR LUMBAR GENERAL 3V AP/LAT/L5-S1 RADEX SPINE LUMBOSACRAL 2/3 VIEWS Perri Green APRN.[employer]LEYBALL REFEREE [address] [place] [address] [place] [address] Referral ID Status Reason Start Date Expiration Date Visits Requested Visits Authorized [id number] Pending Review Auto-Generat ed Referral 06/17/2024 07/17/2025 1 1 [facility] for referral (narrative)* Diagnostic Procedure Only (Routine) - Closed Specialty Diagnoses / Procedures Referred By Contac t Referred To Contact XR IMAGING Diagnoses Right knee pain, unspecified chronicity Procedures XR KNEE GENERAL 4V AP BOTH/PA BOTH/LAT/MERC RIGHT RADIOLOGIC EXAM KNEE COMPLETE 4/MORE VIEWS Quinton Cheek PA-C [address] [place] [address] [place] [address] Referral ID Status Reason Start Date Expiration Date V isits Requested Visits Authorized [id number] Closed Auto-Generate d Referral 09/01/2023 09/30/2024 1 1 [facility] for referral (narrative)* Diagnostic Procedure Only (Routine) - Closed Specialty Diagnoses / Procedures Referred By Contac t Referred To Contact XR IMAGING Diagnoses Arthralgia of multiple joints Procedures XR SHOULDER LIMITED 2V AP/TRUE AP LEFT RADEX SHOULDER COMPLETE MINIMUM 2 VIEWS Mya Andrea APRN.[employer]LEYBALL REFEREE [address] [place] [address] [place] [address] Referral ID Status Reason Start Date Expiration Date V isits Requested Visits Authorized [id number] Closed Auto-Generate d Referral 09/03/2024 10/03/2025 1 1 * Diagnostic Procedure Only (Routine) - Closed Specialty Diagnoses / Procedures Referred By Contac t Referred To Contact XR IMAGING Diagnoses Arthralgia of multiple joints Procedures XR CERV OTHER 4V AP/LAT/OBL RADEX SPINE CERVICAL 4 OR 5 VIEWS Mya Andrea APRN.[employer] REFEREE [address] [place] [address] [place] [address] Referral ID Status Reason Start Date Expiration Date V isits Requested Visits Authorized [id number] Closed Auto-Generate d Referral 09/03/2024 10/03/2025 1 1 * Diagnostic Procedure Only (Routine) - Closed Specialty Diagnoses / Procedures Referred By Contac t Referred To Contact XR IMAGING Diagnoses Arthralgia of multiple joints Procedures XR KNEE LIMITED 2V AP/LAT RIGHT RADIOLOGIC EXAMINATION KNEE 1/2 VIEWS Mya Andrea APRN.[employer]LEYBALL REFEREE [address] [place] [phone] [place] [address] Referral ID Status Reason Start Date Expiration Date V isits Requested Visits Authorized [id number] Closed Auto-Generate d Referral 09/03/2024 10/03/2025 1 1 [facility] for visit Narrative* Diagnostic Procedure Only (Urgent) - Pending Review Specialty Diagnoses / Procedures Referred By Contac t Referred To Contact XR IMAGING Diagnoses Lumbar pain Procedures XR LUMBAR GENERAL 3V AP/LAT/L5-S1 RADEX SPINE LUMBOSACRAL 2/3 VIEWS Perri Green APRN.[employer] REFEREE [address] [place] [address] [place] [address] Referral ID Status Reason Start Date Expiration Date Visits Requested Visits Authorized [id number] Pending Review Auto-Generat ed Referral 06/17/2024 07/17/2025 1 1 [facility] for visit Narrative* Diagnostic Procedure Only (Routine) - Closed Specialty Diagnoses / Procedures Referred By Contac t Referred To Contact XR IMAGING Diagnoses Right knee pain, unspecified chronicity Procedures XR KNEE GENERAL 4V AP BOTH/PA BOTH/LAT/MERC RIGHT RADIOLOGIC EXAM KNEE COMPLETE 4/MORE VIEWS Quinton Cheek PA-C [address] [place] [address] [place] [address] Referral ID Status Reason Start Date Expiration Date V isits Requested Visits Authorized [id number] Closed Auto-Generate d Referral 09/01/2023 09/30/2024 1 1 [facility] for visit Narrative* Diagnostic Procedure Only (Routine) - Closed Specialty Diagnoses / Procedures Referred By Contac t Referred To Contact XR IMAGING Diagnoses Arthralgia of multiple joints Procedures XR SHOULDER LIMITED 2V AP/TRUE AP LEFT RADEX SHOULDER COMPLETE MINIMUM 2 VIEWS Mya Andrea APRN.[employer] REFEREE [address] [place] [phone] [place] [address] Referral ID Status Reason Start Date Expiration Date V isits Requested Visits Authorized [id number] Closed Auto-Generate d Referral 09/03/2024 10/03/2025 1 1 [facility] Summary Purpose Family History Relationship Condition Age at Onset Recorded Date/T roya Not Specified Chronic obstructive pulmonary disease Un known Relationship Condition Age at Onset Recorded Date/T roya father Chronic obstructive pulmonary disease Unk nown mother Malignant neoplasm of breast Unknown Family Member Condition Mother Father Advance Directives Advance Directive Response Recorded Date/ Time Living Will No May 13, 2022 4 :25pm Power of Cloth Tester Quality No May 13, 2022 4:25pm Advance Directive Response Recorded Date/ Time Living Will No June 21, 2022 4:16pm Power of Cloth Tester Quality No June 21 4:16pm Advance Directive Response Recorded Date/ Time Living Will No December 06 3:54pm Power of Cloth Tester Quality No December 06, 2022 3:54pm Advance Directive Response Recorded Date/ Time Living Will No December 14 2:39am Power of Cloth Tester Quality No December 14, 2022 2:39am Advance Directive Response Recorded Date/ Time Living Will No April 30, 2023 8:50pm Power of Cloth Tester Quality No April 30 8:50pm Advance Directive Response Recorded Date/ Time Living Will No August 14 11:13pm Power of Cloth Tester Quality No August 14, 2 023 11:13pm Advance Directive Response Recorded Date/ Time Living Will No October 07, 2 023 3:13pm Power of Cloth Tester Quality No October 07, 2023 3:13pm Chief Complaint and Reason for Visit Chief Complaint LACERATION Chief Complaint bilat eyes, ear pain Chief Complaint bilat eyes, ear pain cough, shortness of breath BACK Chief Complaint bilat eyes, ear pain cough, shortness of breath BACK LEFT FLANK PAIN Chief Complaint BACK PAIN CHEST PAIN Chief Complaint CHEST PAIN sob,cp R KNEE PAIN Chief Complaint sob,cp R KNEE PAIN knee pain Reason for Referral Specialty Diagnoses / Procedures Referred By Contac t Referred To Contact Orthopedics Diagnoses Arthralgia of multiple joints Primary osteoarthritis of right knee Procedures CONSULT TO ORTHOPAEDICS OFFICE/OUTPATIENT [facility] 60 MINUTES Mya Andrea ART MANAGER.VOLLEYBALL REFEREE [address] [place] [address] Referral ID Status Reason Start Date Expiration Date Visits Requested Visits Authorized [id number] Authorized PCP Requested Referral 09/09/2025 1 1 Specialty Diagnoses / Procedures Referred By Contac t Referred To Contact [facility] Diagnoses Cervicalgia Procedures CONSULT TO [facility] OFFICE/OUTPATIENT [facility] 60 MINUTES Pura Leon, ART MANAGER.MAINTENANCE PERSON [address] [place] [address] Referral ID Status Reason Start Date Expiration Date Visits Requested Visits Authorized [id number] Authorized PCP Requested Referral 10/15/2024 10/15/2025 1 1 Specialty Diagnoses / Procedures Referred By Contac t Referred To Contact [facility] Diagnoses Chronic obstructive pulmonary disease (HCC) Procedures OXIMETRY WITH AMBULATION NONINVASIVE EAR/PULSE OXIMETRY MULTIPLE DETER Pura Leon, ART MANAGER.MAINTENANCE PERSON [address] [place] [address] [address] Referral ID Status Reason Start Date Expiration Date Visits Requested Visits Authorized [id number] Pending Review Auto-Generat ed Referral 10/15/2024 11/14/2025 1 1 Specialty Diagnoses / Procedures Referred By Contac t Referred To Contact [facility] Diagnoses Chronic obstructive pulmonary disease (HCC) Procedures SPIROMETRY - BASELINE AND POST DILATOR BRNCDILAT RSPSE SPMTRY PRE&POST-BRNCDILAT ADMN Pura Leon, ART MANAGER.MAINTENANCE PERSON [address] [place] [address] [address] Referral ID Status Reason Start Date Expiration Date Visits Requested Visits Authorized [id number] Pending Review Auto-Generat ed Referral 10/15/2024 11/14/2025 1 1 Specialty Diagnoses / Procedures Referred By Contac t Referred To Contact Nutrition Diagnoses Obesity, Class III, BMI 40-49.9 (morbid obesity) (HCC) Procedures CONSULT TO NUTRITION THERAPY MEDICAL NUTRITION ASSMT&IVNTJ INDIV EACH 15 RI Pura Leon, ART MANAGER.MAINTENANCE PERSON [address] [place] [address] Referral ID Status Reason Start Date Expiration Date Visits Requested Visits Authorized [id number] Authorized PCP Requested Referral 12/16/2024 12/16/2025 1 4 Additional Source Comments (unrecognized sect ion and content) No Status Records FoundNo Status Records FoundNo Status Records FoundNo Status Records FoundNo Status Records FoundNo Status Records Found INFORMATION SOURCE (unrecogn ized section and content) DATE CREATED AUTHOR 05/09/2018 [facility] DATE CREATED AUTHOR AUTHOR'S ORGANIZ ATION 02/22/2019 [facility] ([place]) DATE CREATED AUTHOR AUTHOR'S ORGANIZ ATION 09/05/2023 [facility] DATE CREATED AUTHOR AUTHOR'S ORGANIZ ATION 04/07/2024 [facility] DATE CREATED AUTHOR AUTHOR'S ORGANIZ ATION 11/29/2024 [facility] DATE CREATED AUTHOR 'S ORGANMORIS ATION 12/22/2024 [facility] [place] Goals (unrecognized section and content) Goals may be documented in a n alternate sectionGoals may be documented in an alternate sectionGoals may be documented in an alternate sectionGoals may be documented in an alternate sectionGoals may be documented in an alternate sectionGoals may be documented in an alternate sectionGoals may be documented in an alternate section No data available for this section No Information Available Source Comments (unrecognize d section and content) In the event this informatio n is protected by the Federal Confidentiality of Alcohol and Drug Abuse Patient Records regulations: The Federal rules restrict any use of the information to criminally investigate or prosecute any alcohol or drug abuse patient.[facility] AdministrationIn the event this information is protected by the Federal Confidentiality of Alcohol and Drug Abuse Patient Records regulations: The Federal rules restrict any use of the information to criminally investigate or prosecute any alcohol or drug abuse patient.[facility] AdministrationIn the event this information is protected by the Federal Confidentiality of Alcohol and Drug Abuse Patient Records regulations: The Federal rules restrict any use of the information to criminally investigate or prosecute any alcohol or drug abuse patient.[facility] AdministrationIn the event this information is protected by the Federal Confidentiality of Alcohol and Drug Abuse Patient Records regulations: The Federal rules restrict any use of the information to criminally investigate or prosecute any alcohol or drug abuse patient.[facility] AdministrationIn the event this information is protected by the Federal Confidentiality of Alcohol and Drug Abuse Patient Records regulations: The Federal rules restrict any use of the information to criminally investigate or prosecute any alcohol or drug abuse patient.[facility] AdministrationIn the event this information is protected by the Federal Confidentiality of Alcohol and Drug Abuse Patient Records regulations: The Federal rules restrict any use of the information to criminally investigate or prosecute any alcohol or drug abuse patient.[facility] AdministrationIn the event this information is protected by the Federal Confidentiality of Alcohol and Drug Abuse Patient Records regulations: The Federal rules restrict any use of the information to criminally investigate or prosecute any alcohol or drug abuse patient.[facility] AdministrationIn the event this information is protected by the Federal Confidentiality of Alcohol and Drug Abuse Patient Records regulations: The Federal rules restrict any use of the information to criminally investigate or prosecute any alcohol or drug abuse patient.[facility] AdministrationIn the event this information is protected by the Federal Confidentiality of Alcohol and Drug Abuse Patient Records regulations: The Federal rules restrict any use of the information to criminally investigate or prosecute any alcohol or drug abuse patient.[facility] AdministrationIn the event this information is protected by the Federal Confidentiality of Alcohol and Drug Abuse Patient Records regulations: The Federal rules restrict any use of the information to criminally investigate or prosecute any alcohol or drug abuse patient.[facility] AdministrationIn the event this information is protected by the Federal Confidentiality of Alcohol and Drug Abuse Patient Records regulations: The Federal rules restrict any use of the information to criminally investigate or prosecute any alcohol or drug abuse patient.[facility] AdministrationIn the event this information is protected by the Federal Confidentiality of Alcohol and Drug Abuse Patient Records regulations: The Federal rules restrict any use of the information to criminally investigate or prosecute any alcohol or drug abuse patient.[facility] AdministrationIn the event this information is protected by the Federal Confidentiality of Alcohol and Drug Abuse Patient Records regulations: The Federal rules restrict any use of the information to criminally investigate or prosecute any alcohol or drug abuse patient.[facility] AdministrationIn the event this information is protected by the Federal Confidentiality of Alcohol and Drug Abuse Patient Records regulations: The Federal rules restrict any use of the information to criminally investigate or prosecute any alcohol or drug abuse patient.[facility] AdministrationIn the event this information is protected by the Federal Confidentiality of Alcohol and Drug Abuse Patient Records regulations: The Federal rules restrict any use of the information to criminally investigate or prosecute any alcohol or drug abuse patient.[facility] AdministrationIn the event this information is protected by the Federal Confidentiality of Alcohol and Drug Abuse Patient Records regulations: The Federal rules restrict any use of the information to criminally investigate or prosecute any alcohol or drug abuse patient.[facility] AdministrationIn the event this information is protected by the Federal Confidentiality of Alcohol and Drug Abuse Patient Records regulations: The Federal rules restrict any use of the information to criminally investigate or prosecute any alcohol or drug abuse patient.[facility] AdministrationIn the event this information is protected by the Federal Confidentiality of Alcohol and Drug Abuse Patient Records regulations: The Federal rules restrict any use of the information to criminally investigate or prosecute any alcohol or drug abuse patient.[facility] AdministrationIn the event this information is protected by the Federal Confidentiality of Alcohol and Drug Abuse Patient Records regulations: The Federal rules restrict any use of the information to criminally investigate or prosecute any alcohol or drug abuse patient.[facility] AdministrationIn the event this information is protected by the Federal Confidentiality of Alcohol and Drug Abuse Patient Records regulations: The Federal rules restrict any use of the information to criminally investigate or prosecute any alcohol or drug abuse patient.[facility] AdministrationIn the event this information is protected by the Federal Confidentiality of Alcohol and Drug Abuse Patient Records regulations: The Federal rules restrict any use of the information to criminally investigate or prosecute any alcohol or drug abuse patient.[facility] AdministrationIn the event this information is protected by the Federal Confidentiality of Alcohol and Drug Abuse Patient Records regulations: The Federal rules restrict any use of the information to criminally investigate or prosecute any alcohol or drug abuse patient.[facility] AdministrationIn the event this information is protected by the Federal Confidentiality of Alcohol and Drug Abuse Patient Records regulations: The Federal rules restrict any use of the information to criminally investigate or prosecute any alcohol or drug abuse patient.[facility] AdministrationIn the event this information is protected by the Federal Confidentiality of Alcohol and Drug Abuse Patient Records regulations: The Federal rules restrict any use of the information to criminally investigate or prosecute any alcohol or drug abuse patient.[facility] AdministrationIn the event this information is protected by the Federal Confidentiality of Alcohol and Drug Abuse Patient Records regulations: The Federal rules restrict any use of the information to criminally investigate or prosecute any alcohol or drug abuse patient.[facility] AdministrationIn the event this information is protected by the Federal Confidentiality of Alcohol and Drug Abuse Patient Records regulations: The Federal rules restrict any use of the information to criminally investigate or prosecute any alcohol or drug abuse patient.[facility] AdministrationIn the event this information is protected by the Federal Confidentiality of Alcohol and Drug Abuse Patient Records regulations: The Federal rules restrict any use of the information to criminally investigate or prosecute any alcohol or drug abuse patient.[facility] Reason for Visit (unrecogniz ed section and content) right knee pain, New - 1st v isit with practice Reason Onset Date Comments Refill Request 05/13/2022 Reason Onset Date Comments Refill Request 08/31/2022 Reason Comments Flank Pain Reason Comments Medication Problem Reason Comments Back Pain Reason Comments Follow Up Reason Comments Appointment Regarding Appointmen t on 09/01/23 Reason Comments Follow Up New Knee Pain Reason Onset Date Comments Refill Request 01/15/2024 not needed-refil ls at pharmacy Reason Comments Acute Visit Productive cough, ch est congestion, wheezing, chills, headache, sore throat x1 week Specialty Diagnoses / Procedures Referred By Contac t Referred To Contact Internal Medicine / INTERNAL MEDICINE Diagnoses URI + cough >1 week Procedures 4C EST Carlos Garcia MD [facility] [place] [phone] Carlos Garcia MD [address] [place] [phone] Referral ID Status Reason Start Date Expiration Date Visits Requested Visits Authorized [id number] Authorized Patient Cleared - Qualified 100% FAS 01/16/2024 04/15/2024 99 99 Reason Onset Date Comments Refill Request 04/05/2024 Reason Onset Date Comments Refill Request 05/09/2024 Reason Comments Back [facility] of low back x couple months Reason Onset Date Comments Refill Request 08/05/2024 Reason Comments Physical Reason Comments Results Reason Comments Results Reason Comments Follow Up Reason Onset Date Comments Refill Request 11/11/2024 Reason Comments New Knee Pain Referred by Mya Andrea Specialty Diagnoses / Procedures Referred By Contac t Referred To Contact Orthopedics Diagnoses Arthralgia of multiple joints Primary osteoarthritis of right knee Procedures CONSULT TO ORTHOPAEDICS OFFICE/OUTPATIENT [facility] 60 MINUTES Mya Andrea APRN.VOLLEYBALL REFEREE [address] [place] [address] Referral ID Status Reason Start Date Expiration Date V isits Requested Visits Authorized [id number] Closed PCP Requested Referral 09/09/2024 09/09/2025 1 1 Reason Comments Follow Up Reason Onset Date Comments Refill Request 05/23/2025 Out of medicatio n Care Teams (unrecognized sec tion and content) Biopsychologist Relationship Specialty Start Date End Date Carlos Garcia MD [address] [place] [address] PCP - General Internal Medicine 10/20/15 Biopsychologist Relationship Specialty Start Date End Date Carlos Garcia MD [address] [place] [address] PCP - General Internal Medicine 10/20/15 Team Status: Active Member Role Status Dates Dr. Carlos Garcia MD Family Provider Active Dr. Carlos Garcia MD Primary Care Provider Active Team Status: Inactive Member Role Status Dates Dr. Carlos Garcia MD Primary Care Provider Active Ed Physician Provider Attending Provider, Emergency Pr zheng Active Team Status: Inactive Member Role Status Dates Dr. Carlos Garcia MD Primary Care Provider Active Dr. Eleni Beatty DO Attending Provider, Emergency P antonia Active Team Status: Inactive Member Role Status Dates Dr. Carlos Garcia MD Primary Care Provider Active Dr. Paulino Guan MD Emergency Provider Active Biopsychologist Relationship Specialty Start Date End Date Carlos Garcia MD [address] [place] [address] PCP - General Internal Medicine 10/20/15 Team Status: Inactive Member Role Status Dates Dr. Carlos Garcia MD Primary Care Provider Active Dr. Julius Dupree MD Emergency Provider Active Biopsychologist Relationship Specialty Start Date End Date Carlos Garcia MD [address] [place] [address] PCP - General Internal Medicine 10/20/15 Biopsychologist Relationship Specialty Start Date End Date Carlos Garcia MD [address] [place] [address] PCP - General Internal Medicine 10/20/15 Team Status: Inactive Member Role Status Dates Dr. Carlos Garcia MD Primary Care Provider Active Dr. Alf Ramon MD Attending Provider, Emergency Pr ovider Active Team Status: Inactive Member Role Status Dates Dr. Carlos Garcia MD Primary Care Provider Active Dr. Lani España MD Emergency Provider Active Team Status: Inactive Member Role Status Dates Dr. Carlos Garcia MD Primary Care Provider Active Dr. Lani España MD Attending Provider, Emergency Provider Active Team Status: Inactive Member Role Status Dates Dr. Carlos Garcia MD Primary Care Provider Active Dr. Scout Gutierrez DO Emergency Provider Active Team Status: Inactive Member Role Status Dates Dr. Carlos Garcia MD Primary Care Provider Active Dr. Jared Almaraz MD Attending Provider, Emergency Provi maya Active Biopsychologist Relationship Specialty Start Date End Date Carlos Garcia MD [address] [place] [address] PCP - General Internal Medicine 10/20/15 Biopsychologist Relationship Specialty Start Date End Date Carlos Garcia MD [address] [place] [address] PCP - General Internal Medicine 10/20/15 Team Status: Inactive Member Role Status Dates Dr. Carlos Garcia MD Primary Care Provider Active Dr. Scout Gutierrez DO Attending Provider, Emergency P antonia Active Team Status: Inactive Member Role Status Dates Dr. Carlos Garcia MD Primary Care Provider Active Dr. Carlos Meyers DO Emergency Provider Active Biopsychologist Relationship Specialty Start Date End Date Carlos Garcia MD [address] [place] [address] PCP - General Internal Medicine 10/20/15 Biopsychologist Relationship Specialty Start Date End Date Carlos Garcia MD [address] [place] [address] PCP - General Internal Medicine 10/20/15 Biopsychologist Relationship Specialty Start Date End Date Carlos Garcia MD [address] [place] [address] PCP - General Internal Medicine 10/20/15 Biopsychologist Relationship Specialty Start Date End Date Carlos Garcia MD [address] [facility] [address] PCP - General Internal Medicine 10/20/15 Biopsychologist Relationship Specialty Start Date End Date Carlos Garcia MD [address] [place] [address] PCP - General Internal Medicine 10/20/15 Biopsychologist Relationship Specialty Start Date End Date Carlos Garcia MD [address] [place] [address] PCP - General Internal Medicine 10/20/15 Biopsychologist Relationship Specialty Start Date End Date Carlos Garcia MD [address] [place] [address] PCP - General Internal Medicine 10/20/15 Biopsychologist Relationship Specialty Start Date End Date Carlos Garcia MD [address] [place] [address] PCP - General Internal Medicine 10/20/15 Biopsychologist Relationship Specialty Start Date End Date Carlos Garcia MD [address] [place] [address] PCP - General Internal Medicine 10/20/15 Biopsychologist Relationship Specialty Start Date End Date Carlos Garcia MD [address] [place] [address] PCP - General Internal Medicine 10/20/15 Biopsychologist Relationship Specialty Start Date End Date Carlos Garcia MD [address] [place] [address] PCP - General Internal Medicine 10/20/15 Biopsychologist Relationship Specialty Start Date End Date Carlos Garcia MD [address] [place] [address] PCP - General Internal Medicine 10/20/15 Pura Leon, ART MANAGER.MAINTENANCE PERSON [address] [place] [address] Nitrate Operator Internal Medicine 10/21/24 Mya Andrea, ART MANAGER.VOLLEYBALL REFEREE [address] [place] [address] Nitrate Operator Internal Medicine 10/21/24 Biopsychologist Relationship Specialty Start Date End Date Carlos Garcia MD [address] [place] [address] PCP - General Internal Medicine 10/20/15 Pura Leon, ART MANAGER.MAINTENANCE PERSON [address] [place] [address] Nitrate Operator Internal Medicine 10/21/24 Mya Andrea ART MANAGER.VOLLEYBALL REFEREE [address] [place] [address] [facility] Internal Medicine 10/21/24 Biopsychologist Relationship Specialty Start Date End Date Carlos Garcia MD [address] [place] [address] PCP - General Internal Medicine 10/20/15 Pura Leon, ART MANAGER.MAINTENANCE PERSON [address] [place] [address] [facility] Internal Medicine 10/21/24 Mya Andrea ART MANAGER.VOLLEYBALL REFEREE [address] [place] [address] [facility] Internal Medicine 10/21/24 Biopsychologist Relationship Specialty Start Date End Date Carlos Garcia MD [address] [place] [address] PCP - General Internal Medicine 10/20/15 Pura Loen, ART MANAGER.MAINTENANCE PERSON [address] [place] [address] [facility] Internal Medicine 10/21/24 Mya Andrea ART MANAGER.VOLLEYBALL REFEREE [address] [place] [address] [facility] Internal Medicine 10/21/24 Biopsychologist Relationship Specialty Start Date End Date Carlos Garcia MD [address] [place] [address] PCP - General Internal Medicine 10/20/15 Mya Andrea APRN.VOLLEYBALL REFEREE [address] [place] [address] [facility] Internal Medicine 02/04/25 Pura Leon APRN.MAINTENANCE PERSON [address] [place] [address] [facility] Internal Medicine 04/02/25 FOR RECORDS PERTAINING TO PATIENTS WHO ARE OR HAVE BEEN ENROLLED IN A CHEMICAL DEPENDENCY/SUBSTANCEABUSE PROGRAM, SOME INFORMATION MAY BE OMITTED. This clinical summary was aggregated from multiple sources. Caution should be exercised in using it in the provision of clinical care. This summary normalizes information from multiple sources, and as a consequence, information in this document may materially change the coding, format and clinical context of patient data. In addition, data may be omitted in some cases. CLINICAL DECISIONS SHOULD BE BASED ON THE PRIMARY CLINICAL RECORDS. [employer] provides no warranty or guarantee of the accuracy or completeness of information in this document.
[2025-08-30 08:34] VITALS: BP 142/70; PULSE 95; RESP 20; TEMP 36.6; O2SAT 95
== END 2025-08-30 08:35 | disposition home or self-care (01) ==
LOC: ED 08:26
PROVIDERS: Emergency Provider Emergency Medicine; PCP Internal Medicine; Visit Provider Emergency Medicine
DX: S16.1XXA Strain of muscle, fascia and tendon at neck level, initial encounter (principal); J43.9 Emphysema, unspecified; I10 Essential (primary) hypertension; Z87.891 Personal history of nicotine dependence; R51.9 Headache, unspecified; R60.0 Localized edema; J45.909 Unspecified asthma, uncomplicated; X58.XXXA Exposure to other specified factors, initial encounter
CPT/HCPCS: 99282